=== PATIENT | male | born 1960 | race Caucasian/White ===

== ENCOUNTER 2017-03-26 01:17 | Inpatient (IN) | payer SELFPAY ==
[2017-03-26 01:49] LABS: Oxyhemoglobin 78.9 % (94.0-97.0); Sodium 136 mmol/L (135-148)
[2017-03-26 01:51] LABS: Modified Allen's Test POSITIVE; Spontaneous Rate 23 min; Vent NO
[2017-03-26 01:52] LABS: Mode BREATHING TX
[2017-03-26 01:56] LABS: #Basophils 0.1 thou/uL (0.0-0.2); #Eosinphils 1.2 thou/uL (0.0-0.7); #Lymphocytes 4.4 thou/uL (1.20-3.40); #Monocytes 1.2 thou/uL (0.11-0.59); %Basophils 0.7 % (0.0-1.0); %Eosinophils 10.4 % (0.0-10.0); %Lymphocytes 36.5 % (21.0-51.0); %Monocytes 10.3 % (0.0-10.0); Hematocrit 46.6 % (42.0-52.0); Mean Platelet Volume 7.6 fL (7.4-10.4); Red Blood Cell (RBC) Count 4.61 mill/uL (4.70-6.10); White Blood Cell (WBC) Count 11.9 thou/uL (4.8-10.8)
[2017-03-26 02:03] LABS: PTT 27.9 SEC (22.9-36.1); Prothrombin Time 13.9 SEC (12.0-14.7)
[2017-03-26 02:21] LABS: Troponin I Less than 0.010 ng/mL (< 0.028)
[2017-03-26 02:33] LABS: Lactic Acid - Sepsis 2.5 mmol/L (0.5-2.2)
[2017-03-26 02:39] LABS: ALT (SGPT) 86 U/L (8-55); AST (SGOT) 61 U/L (5-34); Alkaline Phosphatase 100 U/L (40-150); Anion Gap 18 mmol/L (10-20); BUN (Urea Nitrogen) 8 mg/dL (8.4-25.7); Bilirubin, Total 0.6 mg/dL (0.2-1.2); CK (CPK) 45 U/L (30-200); Calc. Creatinine Clearance 0 mL/min (70-130); Calcium 9.9 mg/dL (7.8-10.44); Carbon Dioxide 21 mmol/L (22-29); Chloride 100 mmol/L (98-107); Estimated GFR-MDRD 82; Globulin 3.4 g/dL (2.4-3.5); Lipase 21 U/L (8-78); Protein, Total 7.6 g/dL (6.0-8.3)
[2017-03-26] MEDS ORDERED: Ondansetron ODT 4 MG TAB SL PRN (05:12)
[2017-03-26] MEDS ORDERED: Sodium Chloride 0.9% 1,000 ML IV SCH ×3 (05:12→11:00)
[2017-03-26] MEDS ORDERED: Ondansetron HCl/PF 4 MG/2 ML Vial IVP PRN (05:12)
[2017-03-26 05:32] VITALS: BMI 25.1
[2017-03-26] MEDS ORDERED: Acetaminophen 325 MG TAB PO PRN (07:33)
[2017-03-26] MEDS ORDERED: Ondansetron ODT 4 MG TAB PO PRN (07:33)
--- NOTE | 2017-03-26 08:15 | RAD ---
CHEST ONE VIEW: History: Dyspnea. Comparison: 12-11-16 FINDINGS: Layering pleural effusion versus scarring right lung base is similar. Left lung is relatively clear. Pleural and parenchymal changes at the right thorax. No pneumothorax. IMPRESSION: No significant change. Chronic pleural and parenchymal changes in the right lung. POS: [facility]
[2017-03-26] MEDS ORDERED: Dexamethasone 4 mg/ml Vial SLOW IVP SCH (09:00)
[2017-03-26] MEDS: Metoprolol Tartrate 50 MG TAB PO SCH ×2 (09:20→20:07)
[2017-03-26] MEDS: predniSONE 20 MG TAB PO SCH (09:21)
[2017-03-26] MEDS: Amlodipine 10 MG TAB PO SCH (09:22)
[2017-03-26] MEDS: Sodium Chloride 0.9% 500 ML IV SCH ×2 (09:24→10:42)
[2017-03-26] MEDS ORDERED: Multivitamins, Adult 10 ML, Folic Acid 1 MG, Thiamine HCl 100 MG in Dextrose 5 %-0.45 %... IV SCH ×4 (09:30)
[2017-03-26] MEDS ORDERED: Diazepam 5 MG TAB PO PRN (09:59)
[2017-03-26] MEDS ORDERED: Diazepam 5 MG TAB PO SCH (10:15)
[2017-03-26] MEDS ORDERED: Albuterol Sulfate 2.5 mg/3 ml Neb NEB PRN (10:54)
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
--- NOTE | 2017-03-26 12:15 | CON ---
DATE OF CONSULTATION: 03/26/2017 SERVICE: Pulmonary Medicine REASON FOR CONSULTATION: Respiratory failure. HISTORY OF PRESENT ILLNESS: The patient is a 56-year-old white male with past medical history signif icant for COPD. He uses nebulized medications on an as needed basis. Over the past year, he did not need much more than 5 or [address], he and started having increasing shortness of br eath that abruptly started when he woke up on the day of admission. He was having increasing cough, sputum production, wheezing. He was not having any fevers or chills. He denies any chest pain, palp itations, nausea, vomiting or diarrhea. He was placed on noninvasive ventilation in the Emergency De partment, given some nebulizers medications, steroids, and antibiotics. After a short period of time , he was tucked into the ICU and recovered very nicely. This morning, I am giving him a BiPAP break. We will see if he tolerates this. PAST MEDICAL HISTORY: 1. COPD. 2. Tobacco abuse. 3. Alcohol abuse. 4. Hypertension. PAST SURGICAL HISTORY: Left thumb surgery. FAMILY HISTORY: Noncontributory. SOCIAL HISTORY: He drinks 3-4 beers on a daily basis, but these are the larger 32 ounce beers. He s mokes roughly a pack a day and has a greater than [id number] history of smoking. 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 He denies illicit drugs. He has no exposure to chemicals, asbestos or tuberculosis. ALLERGIES: ASPIRIN, CEFTRIAXONE. MEDICATIONS: List of his inpatient medications were reviewed in the medical record. No specific upd ates were made at this time. REVIEW OF SYSTEMS: General, head, ears, eyes, nose, throat, cardiovascular, respiratory, GI, , mus culoskeletal, neurologic and skin is negative except as mentioned in the HPI. PHYSICAL EXAMINATION: VITAL SIGNS: Afebrile, pulse 107, blood pressure 130/84, respirations 30, saturation 99% on 2 liters nasal cannula. GENERAL: The patient is awake and alert. No apparent distress. HEENT: Normocephalic, atraumatic. Sclerae are white, conjunctivae pink. Oral and nasal mucosa is m oist without lesions. LUNGS: Decent air entry. There is a prolonged expiratory phase. Wheezing is present. Careful ausc ultation did not demonstrate any crackles. HEART: Normal rate, regular. ABDOMEN: Soft, nontender, nondistended. Bowel sounds are positive. MUSCULOSKELETAL: No cyanosis or clubbing. No pitting in the bilateral lower extremities. NEUROLOGIC: Grossly nonfocal. LABORATORY DATA: WBC 11.9, hemoglobin 15.8, platelets 382,000. INR 1.1. PH 7.38, pCO2 41, pO2 50. Lactate is up trending to 5.9. Basic metabolic profile is otherwise unremarkable. Liver function s tudies including AST and ALT are marginally elevated. BNP and troponin are unremarkable. Plasma al cohol was below the assay limit of 10. Syphilis and RPR are currently pending. Influenza A and B we re negative. IMAGING: Chest x-ray demonstrated right-sided small pleural parenchymal abnormality. No acute cardio pulmonary abnormality is otherwise identified. ASSESSMENT: 1. Chronic obstructive pulmonary disease with acute exacerbation. 2. Acute hypoxic respiratory failure. 3. Alcohol abuse. 4. Tobacco abuse. PLAN: I will deescalate his steroid to 40 mg of prednisone p.o. daily. We will continue his IV anti biotics for the time being. We will give him BiPAP breaks through the day and increase as tolerated. I will provide him with beer so that he does not develop any withdrawal type features. I agree wit h his ASE scale. I did give him the option of withdrawing from the alcohol, but he suggested that he will not stop drinking. As such, I do not think that going through this exercise is fruitful. [facility] will continue to follow. Greater than 70 minutes were spent coordinating patient's care, and being directly available to this patient in the unit.
[2017-03-26] MEDS: BEER 1 CAN PO SCH ×2 (14:33→20:08)
[2017-03-26 23:21] LABS: Syphilis Titer Non-Reactive (Negative)
[2017-03-27] MEDS ORDERED: Diazepam 5 MG TAB PO PRN (04:00)
[2017-03-27] MEDS: guaiFENesin 200 MG TAB PO PRN ×3 (04:50→20:54)
[2017-03-27 05:31] LABS: #Lymphocytes 1.2 thou/uL (1.20-3.40); #Monocytes 1.2 thou/uL (0.11-0.59); %Basophils 0.1 % (0.0-1.0); %Eosinophils 0.1 % (0.0-10.0); %Lymphocytes 8.2 % (21.0-51.0); %Monocytes 8.3 % (0.0-10.0); Mean Platelet Volume 8.4 fL (7.4-10.4); White Blood Cell (WBC) Count 14.4 thou/uL (4.8-10.8)
[2017-03-27 05:57] LABS: Anion Gap 15 mmol/L (10-20); BUN (Urea Nitrogen) 10 mg/dL (8.4-25.7); Calc. Creatinine Clearance 128 mL/min (70-130); Carbon Dioxide 19 mmol/L (22-29); Chloride 104 mmol/L (98-107); Estimated GFR-MDRD Greater than 90; Magnesium 2.5 mg/dL (1.6-2.6); Phosphorus 3.9 mg/dL (2.3-4.7)
[2017-03-27] MEDS: Amlodipine 10 MG TAB PO SCH (07:47)
[2017-03-27] MEDS: Metoprolol Tartrate 50 MG TAB PO SCH ×2 (07:47→20:54)
[2017-03-27] MEDS: predniSONE 20 MG TAB PO SCH (07:47)
[2017-03-27] MEDS: Folic Acid 1 MG TAB PO SCH (07:47)
[2017-03-27] MEDS: Multivitamin W/ Minerals 1 TAB PO SCH (07:48)
[2017-03-27] MEDS: BEER 1 CAN PO SCH ×3 (08:08→17:09)
[2017-03-27] MEDS ORDERED: FLU VACC QS2017-18 36 mo. & older 0.5 ML SYRINGE IM ONE (09:00)
[2017-03-27] MEDS ORDERED: Magnesium Oxide 400 MG TAB PO SCH (09:00)
--- NOTE | 2017-03-27 09:15 | PDOC.FM ---
- Subjective Subjective: Patient reports improvement but still has cough and wheezing. Otherwise no complaints. - Objective MAR Reviewed: Yes Vital Signs & Weight: Vital Signs (12 hours) Temp Pulse Resp BP BP Pulse Ox 03/27/17 08:00 98.4 F 90 18 03/27/17 07:47 90 136/78 03/27/17 07:30 98.4 F 90 16 136/78 96 03/27/17 05:53 75 16 97 03/27/17 04:42 97.8 F 77 18 118/71 99 03/27/17 03:41 96 03/27/17 02:00 77 16 98 03/27/17 01:00 97.9 F 83 22 H 114/74 99 03/26/17 23:07 78 18 100 03/26/17 22:15 98.2 F 81 20 98 Weight Weight 86.5 kg Most Recent Monitor Data Heart Rate from ECG 78 NIBP 117/80 NIBP BP-Mean 91 Respiration from ECG 21 SpO2 97 I&O: 03/26/17 03/27/17 03/28/17 06:59 06:59 06:59 Intake Total 5142 Output Total 0 2850 Balance 0 2292 Result Diagrams: 03/27/17 04:01 03/27/17 04:01 <Sonya Guzman - Last Filed: 03/27/17 09:14> - Objective Vital Signs & Weight: Vital Signs (12 hours) Temp Pulse Resp BP BP Pulse Ox 03/27/17 19:07 76 16 95 03/27/17 19:06 76 16 96 03/27/17 11:40 78 16 95 03/27/17 09:48 78 18 94 L 03/27/17 08:00 98.4 F 90 18 03/27/17 07:47 90 136/78 03/27/17 07:30 98.4 F 90 16 136/78 96 Weight Weight 86.5 kg Most Recent Monitor Data Heart Rate from ECG 78 NIBP 117/80 NIBP BP-Mean 91 Respiration from ECG 21 SpO2 97 I&O: 03/26/17 03/27/17 03/28/17 06:59 06:59 06:59 Intake Total 5142 Output Total 0 2850 Balance 0 2292 Result Diagrams: 03/27/17 04:01 03/27/17 04:01 <Virgie Bañuelos - Last Filed: 03/27/17 19:10> Phys Exam - Physical Examination Constitutional: NAD HEENT: moist MMs diffuse course breath sounds and diffuse wheezing in all lung salda[place] Cardiovascular: RRR, no significant murmur Gastrointestinal: soft, non-tender Musculoskeletal: no edema Neurological: non-focal, normal sensation, moves all 4 limbs Psychiatric: normal affect, A&O x 3 <Sonya Guzman - Last Filed: 03/27/17 09:14> Dx/Plan (1) Acute exacerbation of chronic obstructive pulmonary disease (COPD) Code(s): J44.1 - CHRONIC OBSTRUCTIVE PULMONARY DISEASE W (ACUTE) EXACERBATION Status: Acute Plan: Cont levaquin but can likely transition to oral after todays dose. Patient would significantly benefit from maintenance medicines including LABA/ inh glucocorticoids and anticholinergics. He is unfunded however but have ask case mgmt to help with financial assistance program to get inhalers. Likely would benefit from another day of monitoring as patient still oxygen dependent. Will initiate dulera in hopes he can obtain this outpatient as well. (2) Abnormal LFTs Code(s): R79.89 - OTHER SPECIFIED ABNORMAL FINDINGS OF BLOOD CHEMISTRY Status : Chronic Plan: known acute fatty liver. HIV, Hep C and B negative less than 6 months prior. RPR pending. (3) Alcohol abuse Code(s): F10.10 - ALCOHOL ABUSE, UNCOMPLICATED Status: Chronic Plan: 1 beer TID. no signs of withdrawal currently. (4) Hypertension Code(s): I10 - ESSENTIAL (PRIMARY) HYPERTENSION Status: Chronic Plan: cont home meds. (5) Tobacco abuse Code(s): Z72.0 - TOBACCO USE Status: Chronic Plan: Patient reports cessation 3 wks prior. Cont to encourage cessation. <Sonya Guzman - Last Filed: 03/27/17 09:14> Attending Addendum - Attending Addendum I personally evaluated the patient and discussed the management with Dr. Guzman at 955 am. I agree with the History, Examination, Assessment and Plan documented above with any addition or exceptions noted below. COPD exacerbation- on steroids, nebs, O2 as needed, levaquin. COntinue to wean O2 and expect d/c in the next 1-2 days pending improvement <Virgie Bañuelos - Last Filed: 03/27/17 19:10>
[2017-03-27] MEDS ORDERED: Mometasone/Formoterol 120 PUFF INHALER INH SCH (09:30)
--- NOTE | 2017-03-27 17:49 | PRG ---
DATE OF SERVICE: 03/27/2017 SERVICE: Pulmonary Medicine. INTERVAL HISTORY: The patient is doing fine from a respiratory standpoint. He is breathing very com fortably and suggested 60% back to baseline from a respiratory perspective. He is very happy with im provement that he has made. He has been weaned down to half liter nasal cannula, sats are fantastic on that and so we will try him off of oxygen. Outside of this, he has no specific complaints. His c ough is clearing and is bringing up a little bit of white phlegm. PHYSICAL EXAMINATION: VITAL SIGNS: Afebrile, pulse 90, blood pressure 136/78, respirations 18, saturation 95% on 2 liters nasal cannula. GENERAL: Patient is awake, alert, in no apparent distress. LUNGS: Improved air entry. There remains a prolonged expiratory phase with expiratory wheezing. Rh onchi improved and currently clear with cough. There is no prolonged expiratory phase, wheezing, rhonchi or crackles. HEART: Normal rate, regular. ABDOMEN: Soft, nontender, nondistended. Bowel sounds are positive. MUSCULOSKELETAL: No cyanosis or clubbing. No pitting in the bilateral lower extremities. NEUROLOGIC: Grossly nonfocal. LABORATORY DATA: WBC 14.4, hemoglobin 14.5, platelets 298,000. Neutrophil count is up to 83%, likel y secondary to steroids. INR 1.1. Basic metabolic profile, magnesium, and phosphorus all fall withi n normal limits. Lactate is cleared to 1.8. Plasma alcohol is below the assay limit of 10. Syphili s is intermediate and RPR titer was nonreactive. Influenza A and B are both negative. Blood culture s x2 are unremarkable. ASSESSMENT: 1. Acute hypoxic respiratory failure, resolved. 2. Chronic obstructive pulmonary disease with acute exacerbation. 3. Alcohol abuse. 4. Tobacco abuse, ongoing. PLAN: The patient is a fast approaching his usual state of health. We will continue steroids to be discontinued after 5 days. Antibiotics can be discontinued after 5-7 days. I will de-escalate his n ebulized medications to q.6 hours and will continue p.r.n. medicines if needed. If he continues to m dari progress and positive direction, he will be stable for transition home in the morning. Pulmonary will continue to follow while the patient remains in house.
[2017-03-27] MEDS: Mometasone/Formoterol 120 PUFF INHALER INH SCH (19:07)
[2017-03-28 05:52] LABS: #Eosinphils 0.1 thou/uL (0.0-0.7); #Lymphocytes 2.2 thou/uL (1.20-3.40); #Monocytes 0.9 thou/uL (0.11-0.59); #Neutrophils 7.4 thou/uL (1.40-6.50); %Basophils 0.2 % (0.0-1.0); %Eosinophils 0.6 % (0.0-10.0); %Lymphocytes 20.9 % (21.0-51.0); %Monocytes 8.2 % (0.0-10.0); Hematocrit 48.3 % (42.0-52.0); Mean Platelet Volume 8.8 fL (7.4-10.4); Red Blood Cell (RBC) Count 4.74 mill/uL (4.70-6.10); White Blood Cell (WBC) Count 10.6 thou/uL (4.8-10.8)
[2017-03-28 06:34] LABS: Anion Gap 19 mmol/L (10-20); BUN (Urea Nitrogen) 12 mg/dL (8.4-25.7); Calc. Creatinine Clearance 120 mL/min (70-130); Calcium 9.8 mg/dL (7.8-10.44); Carbon Dioxide 17 mmol/L (22-29); Chloride 102 mmol/L (98-107); Estimated GFR-MDRD Greater than 90
[2017-03-28] MEDS: Mometasone/Formoterol 120 PUFF INHALER INH SCH (06:45)
[2017-03-28 08:00] VITALS: BP 133/84; TEMP 97.9
[2017-03-28] MEDS: Multivitamin W/ Minerals 1 TAB PO SCH (08:20)
[2017-03-28] MEDS: Folic Acid 1 MG TAB PO SCH (08:20)
[2017-03-28] MEDS: predniSONE 20 MG TAB PO SCH (08:20)
[2017-03-28] MEDS: Metoprolol Tartrate 50 MG TAB PO SCH (08:21)
[2017-03-28] MEDS: Amlodipine 10 MG TAB PO SCH (08:21)
--- NOTE | 2017-03-28 09:46 | PDOC.FM ---
- Subjective Subjective: Patient doing much better this morning and has remained off O2 yesterday and overnight. - Objective MAR Reviewed: Yes Vital Signs & Weight: Vital Signs (12 hours) Temp Pulse Resp BP BP Pulse Ox 03/28/17 08:21 83 133/84 03/28/17 07:55 97.9 F 83 22 H 133/84 94 L 03/28/17 06:47 75 16 97 03/28/17 06:45 75 16 97 03/28/17 02:48 95 03/28/17 00:32 83 12 Weight Weight 86.5 kg Most Recent Monitor Data Heart Rate from ECG 78 NIBP 117/80 NIBP BP-Mean 91 Respiration from ECG 21 SpO2 97 I&O: 03/27/17 03/28/17 03/29/17 06:59 06:59 06:59 Intake Total 5142 480 Output Total 2850 Balance 2292 480 Result Diagrams: 03/28/17 04:11 03/28/17 04:11 <Sonya Guzman - Last Filed: 03/28/17 09:43> - Objective Vital Signs & Weight: Vital Signs (12 hours) Temp Pulse Resp BP BP Pulse Ox 03/28/17 13:03 83 16 94 L 03/28/17 08:21 83 133/84 03/28/17 08:00 97.9 F 83 22 H 94 L 03/28/17 07:55 97.9 F 83 22 H 133/84 94 L Weight Weight 86.5 kg Most Recent Monitor Data Heart Rate from ECG 78 NIBP 117/80 NIBP BP-Mean 91 Respiration from ECG 21 SpO2 97 I&O: 03/27/17 03/28/17 03/29/17 06:59 06:59 06:59 Intake Total 5142 660 Output Total 2850 Balance 2292 660 Result Diagrams: 03/28/17 04:11 03/28/17 04:11 <Virgie Bañuelos - Last Filed: 03/28/17 19:15> Phys Exam - Physical Examination Constitutional: NAD HEENT: moist MMs diffuse course wheezing, + air movement Cardiovascular: RRR, no significant murmur Gastrointestinal: soft Musculoskeletal: no edema Neurological: non-focal, normal sensation, moves all 4 limbs Psychiatric: normal affect <Sonya Guzman - Last Filed: 03/28/17 09:43> Dx/Plan (1) Acute exacerbation of chronic obstructive pulmonary disease (COPD) Code(s): J44.1 - CHRONIC OBSTRUCTIVE PULMONARY DISEASE W (ACUTE) EXACERBATION Status: Acute Plan: Cont levaquin for total of 10 days, script to be sent. financial assistance program not able to obtain triple therapy inhalers, but will cover a pro air inhaler. Have explained the importance of maintenance meds to patient but reports finances will cont to be an issue. He will follow up with [facility]. Cont prednisone for total 5 day course. (2) Abnormal LFTs Code(s): R79.89 - OTHER SPECIFIED ABNORMAL FINDINGS OF BLOOD CHEMISTRY Status : Chronic Plan: known acute fatty liver. HIV, Hep C and B negative less than 6 months prior. RPR pending. (3) Alcohol abuse Code(s): F10.10 - ALCOHOL ABUSE, UNCOMPLICATED Status: Chronic Plan: cessation counseling. (4) Hypertension Code(s): I10 - ESSENTIAL (PRIMARY) HYPERTENSION Status: Chronic Plan: cont home meds. (5) Tobacco abuse Code(s): Z72.0 - TOBACCO USE Status: Chronic Plan: Patient reports cessation 3 wks prior. Cont to encourage cessation. <Sonya Guzman - Last Filed: 03/28/17 09:43> Attending Addendum - Attending Addendum I personally evaluated the patient and discussed the management with Dr. Guzman at 0900 am I agree with the History, Examination, Assessment and Plan documented above with any addition or exceptions noted below. COPD exacerbation- improved. Off O2 for 24 hours. d/c home on levaquin and steroids and albuterol. <Virgie Bañuelos - Last Filed: 03/28/17 19:15>
[2017-03-28] MEDS: BEER 1 CAN PO SCH ×2 (10:04→12:23)
[2017-03-28] MEDS: guaiFENesin 200 MG TAB PO PRN (13:59)
--- NOTE | 2017-03-31 13:54 | EKG ---
Test Reason : Blood Pressure : / mmHG Vent. Rate : 116 BPM Atrial Rate : 116 BPM P-R Int : 166 ms QRS Dur : 070 ms QT Int : 302 ms P-R-T Axes : 077 076 070 degrees QTc Int : 419 ms Sinus tachycardia Otherwise normal ECG Confirmed by KEILA BILLY, MEENU ([id number]), metropolitan editor HIWOT MURPHY ([id number]) on 03/31/2017 1:52:47 PM Referred By: Confirmed By:MEENU PEDRAZA MD
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
== END 2017-03-28 14:30 | disposition home or self-care (01) | DRG 189 ==
LOC: ERS 01:17 → ERHOLD 03:07 → CCU 04:44 → T4-A 23:01
PROVIDERS: ADMIT Family Medicine; ATTEND Family Medicine
PROC: 5A09357 Assistance with Respiratory Ventilation, Less than 24 Consecutive Hours, Continuous Positive Airway Pressure (ICD-10-PCS; principal; 2017-03-26)
DX: J96.21 Acute and chronic respiratory failure with hypoxia (principal); K76.0 Fatty (change of) liver, not elsewhere classified; E87.1 Hypo-osmolality and hyponatremia; J44.1 Chronic obstructive pulmonary disease with (acute) exacerbation; I10 Essential (primary) hypertension; Z88.6 Allergy status to analgesic agent; Z88.1 Allergy status to other antibiotic agents; Z79.51 Long term (current) use of inhaled steroids; F17.211 Nicotine dependence, cigarettes, in remission; Z66 Do not resuscitate; F10.10 Alcohol abuse, uncomplicated
CPT/HCPCS: 36415; 71010; 80048; 80053; 80307; 82553; 82805; 83605; 83690; 83735; 83880; 84100; 84484; 85025; 85610; 85730; 86593; 86780; 87040; 90471; 90682; 93005; 94640; 94660; 96365; 96366; A4216; G0008; J1100; J1956; J3411; J3475; J7042; J7050; J7506; J7620; Q2036

== ENCOUNTER 2017-04-21 23:46 | Inpatient (IN) | payer SELFPAY ==
[2017-04-22 00:45] LABS: #Basophils 0.1 thou/uL (0.0-0.2); #Eosinphils 0.9 thou/uL (0.0-0.7); #Lymphocytes 1.7 thou/uL (1.20-3.40); #Monocytes 0.6 thou/uL (0.11-0.59); #Neutrophils 4.9 thou/uL (1.40-6.50); %Basophils 0.9 % (0.0-1.0); %Eosinophils 11.5 % (0.0-10.0); %Monocytes 7.6 % (0.0-10.0); %Neutrophils 59.9 % (42.0-75.0); Hemoglobin 15.2 g/dL (14.0-18.0); Mean Corpuscular HGB CONC 34.4 g/dL (32.0-36.0); Mean Corpuscular Hemoglobin 33.9 pg (27.0-31.0); Mean Corpuscular Volume 98.6 fl (80.0-94.0); Mean Platelet Volume 8.1 fL (7.4-10.4); Platelet Count 241 thou/uL (130-400); RBC Distribution Width 11.4 % (11.5-14.5); Red Blood Cell (RBC) Count 4.49 mill/uL (4.70-6.10); White Blood Cell (WBC) Count 8.2 thou/uL (4.8-10.8)
[2017-04-22 00:59] LABS: ALT (SGPT) 47 U/L (8-55); AST (SGOT) 27 U/L (5-34); Albumin 4.1 g/dL (3.5-5.0); Alkaline Phosphatase 111 U/L (40-150); Anion Gap 15 mmol/L (10-20); BUN (Urea Nitrogen) 12 mg/dL (8.4-25.7); Bilirubin, Total 0.5 mg/dL (0.2-1.2); Calc. Creatinine Clearance 0 mL/min (70-130); Calcium 9.8 mg/dL (7.8-10.44); Carbon Dioxide 25 mmol/L (22-29); Chloride 100 mmol/L (98-107); Estimated GFR-MDRD 78; Globulin 3.2 g/dL (2.4-3.5); Glucose 136 mg/dL (70-105); Potassium 3.6 mmol/L (3.5-5.1); Protein, Total 7.3 g/dL (6.0-8.3); Sodium 136 mmol/L (136-145)
[2017-04-22 02:08] LABS: CKMB 1.4 ng/mL (0-6.6); Troponin I 0.019 ng/mL (< 0.028)
[2017-04-22] MEDS ORDERED: Acetaminophen 325 MG TAB PO PRN (03:50)
[2017-04-22] MEDS ORDERED: Ondansetron HCl/PF 4 MG/2 ML Vial IVP PRN (03:50)
[2017-04-22] MEDS ORDERED: Ondansetron ODT 4 MG TAB SL PRN (03:50)
[2017-04-22] MEDS ORDERED: Albuterol Sulfate 2.5 mg/3 ml Neb NEB PRN (03:51)
[2017-04-22 03:59] VITALS: BMI 25.0
[2017-04-22] MEDS ORDERED: Chloraseptic Spray 180 ml Bottle PO PRN (08:58)
[2017-04-22] MEDS ORDERED: Benzonatate 100 MG CAP PO PRN (08:58)
[2017-04-22] MEDS ORDERED: Calcium Carbonate 500 MG ChewTAB PO PRN (08:58)
[2017-04-22] MEDS ORDERED: chlordiazePOXIDE HCl 25 MG CAP PO PRN (08:58)
[2017-04-22] MEDS ORDERED: hydrALAZINE 20 MG/ML VIAL SLOW IVP PRN (08:58)
--- NOTE | 2017-04-22 08:59 | RAD ---
CHEST 1 VIEW: HISTORY: Dyspnea. COMPARISON: Chest 1 view 03/26/17. FINDINGS: New from the prior examination is left basilar airspace opacity. Chronic pleural and parenchymal jesus nges and pleural thickening in the right lung base. No pneumothorax. Cardiac silhouette and mediast inal contour is similar. IMPRESSION: 1. New airspace opacity in the left lower lobe may reflect atelectasis or infection. 2. Chronic pleural and parenchymal changes right lung base. POS: [facility]
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
[2017-04-22] MEDS: Docusate 100 MG CAP PO SCH ×2 (09:47→20:41)
[2017-04-22] MEDS: Folic Acid 1 MG TAB PO SCH (09:47)
[2017-04-22] MEDS: Nicotine 14 MG PATCH TD SCH (09:47)
[2017-04-22] MEDS: Sodium Chloride 0.9% 1,000 ML IV SCH (09:47)
[2017-04-22 14:32] LABS: Bilirubin Negative (Negative); Blood, Urine Negative (Negative); Clarity CLEAR (Clear); Glucose, Urine (Dipstick) 100 mg/dL (Negative); Leukocyte Negative (Negative); Nitrite Negative (Negative); Protein, Urine (Dipstick) Negative (Neg-Trace); Specific Gravity, Urine 1.008 (1.002-1.036); Urobilinogen 0.2 mg/dL (0.2-1.0); pH, Urine 7.5 (5.0-9.0)
[2017-04-22 14:34] LABS: Bacteria/HPF None Seen HPF (None Seen); Hyaline Casts/LPF 0-3 HYALINE CAST LPF (0-3 Hyaline); RBC/HPF 0-3 HPF (0-3); Squamous Epithelial None Seen HPF (0-3); WBC/HPF None Seen HPF (0-3)
[2017-04-23] MEDS: Sodium Chloride 0.9% 1,000 ML IV SCH (02:30)
[2017-04-23 05:41] LABS: #Lymphocytes 0.6 thou/uL (1.20-3.40); #Monocytes 0.2 thou/uL (0.11-0.59); #Neutrophils 8.6 thou/uL (1.40-6.50); %Basophils 0.1 % (0.0-1.0); %Eosinophils 0.1 % (0.0-10.0); %Lymphocytes 6.3 % (21.0-51.0); %Monocytes 2.1 % (0.0-10.0); %Neutrophils 91.4 % (42.0-75.0); Hemoglobin 14.5 g/dL (14.0-18.0); Mean Corpuscular HGB CONC 34.3 g/dL (32.0-36.0); Mean Corpuscular Hemoglobin 34.4 pg (27.0-31.0); Mean Platelet Volume 8.7 fL (7.4-10.4); Platelet Count 233 thou/uL (130-400); RBC Distribution Width 11.4 % (11.5-14.5); Red Blood Cell (RBC) Count 4.23 mill/uL (4.70-6.10); White Blood Cell (WBC) Count 9.4 thou/uL (4.8-10.8)
[2017-04-23 06:28] LABS: Albumin 3.9 g/dL (3.5-5.0); Anion Gap 15 mmol/L (10-20); BUN (Urea Nitrogen) 10 mg/dL (8.4-25.7); BUN/Creatinine Ratio 10.99; Calc. Creatinine Clearance 112 mL/min (70-130); Calcium 9.1 mg/dL (7.8-10.44); Carbon Dioxide 25 mmol/L (22-29); Chloride 100 mmol/L (98-107); Estimated GFR-MDRD 86; Glucose 144 mg/dL (70-105); Phosphorus 3.9 mg/dL (2.3-4.7); Potassium 3.9 mmol/L (3.5-5.1); Sodium 136 mmol/L (136-145)
[2017-04-23] MEDS: Folic Acid 1 MG TAB PO SCH (08:20)
[2017-04-23] MEDS: Docusate 100 MG CAP PO SCH ×2 (08:21→21:12)
[2017-04-23] MEDS: Nicotine 14 MG PATCH TD SCH (08:21)
--- NOTE | 2017-04-23 13:52 | PDOC.PN ---
- Subjective Encounter Start Date: 04/23/17 Encounter Start Time: 12:30 -: old records requested/rev Pt seen and exmained, chart reviewe din its entirety. This is my first visit with this patient. Pt states still with LUNDBERG, O2 ok at rest. no f/c, no n/V/D/C. Sweats x 1 last night. non hemoptysis, white phlegm production No CP, no dizziness. Pt notes reviewed - Objective Resuscitation Status: full MAR Reviewed: Yes Vital Signs & Weight: Vital Signs (12 hours) Temp Pulse Resp BP Pulse Ox 04/23/17 11:52 97.5 F L 82 16 152/93 H 96 04/23/17 09:58 82 18 97 04/23/17 08:00 98.7 F 82 18 04/23/17 07:53 98.7 F 80 16 157/93 H 97 Weight Weight 190 lb 1 oz I&O: 04/22/17 04/23/17 04/24/17 06:59 06:59 06:59 Intake Total 1420 480 Balance 1420 480 Result Diagrams: 04/23/17 04:48 04/23/17 04:48 Radiology Reviewed by me: Yes EKG Reviewed by me: Yes Phys Exam - Physical Examination Constitutional: NAD HEENT: PERRLA, moist MMs, sclera anicteric, oral pharynx no lesions Neck: no nodes, no JVD, supple, full ROM Respiratory: no rhonchi prolonged expiration, end-exp wheezes, left posterior base rales Cardiovascular: RRR, no significant murmur, no rub Gastrointestinal: soft, non-tender, no distention, positive bowel sounds Musculoskeletal: no edema, pulses present Neurological: non-focal, normal sensation, moves all 4 limbs Lymphatic: no nodes Psychiatric: normal affect, A&O x 3 Skin: no rash, normal turgor, cap refill <2 seconds Dx/Plan (1) Acute exacerbation of chronic obstructive pulmonary disease (COPD) Code(s): J44.1 - CHRONIC OBSTRUCTIVE PULMONARY DISEASE W (ACUTE) EXACERBATION Status: Acute Comment: improved, 98% RA. wena off. conitnue steroids, nebs. to po tomorrow. continue abx (2) Abnormal LFTs Code(s): R79.89 - OTHER SPECIFIED ABNORMAL FINDINGS OF BLOOD CHEMISTRY Status : Chronic (3) Alcohol abuse Code(s): F10.10 - ALCOHOL ABUSE, UNCOMPLICATED Status: Chronic Comment: librium PRN, ASE scoring (4) CKD (chronic kidney disease) stage 2, GFR 60-89 ml/min Code(s): N18.2 - CHRONIC KIDNEY DISEASE, STAGE 2 (MILD) Status: Chronic (5) Hypertension Code(s): I10 - ESSENTIAL (PRIMARY) HYPERTENSION Status: Chronic Qualifiers: Hypertension type: essential hypertension Qualified Code(s): I10 - Essential (primary) hypertension (6) Tobacco abuse Code(s): Z72.0 - TOBACCO USE Status: Chronic - Plan cont current plan of care, continue antibiotics, PT/OT, 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
[2017-04-24] MEDS: Folic Acid 1 MG TAB PO SCH (08:23)
[2017-04-24] MEDS: Docusate 100 MG CAP PO SCH ×2 (08:23→20:12)
[2017-04-24] MEDS: Nicotine 14 MG PATCH TD SCH (08:24)
--- NOTE | 2017-04-24 12:18 | PDOC.PN ---
- Subjective Encounter Start Date: 04/24/17 Encounter Start Time: 09:30 Pt feeling better, less LUNDBERG, O2 on RA normal at rest. Will ask nursing toambulate. No F/C, no N/v/D/C, no CP, some cough and sputum production pt does have home nebulizer. 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, will plan to refer as an outpatient - Objective MAR Reviewed: Yes Vital Signs & Weight: Vital Signs (12 hours) Temp Pulse Resp BP Pulse Ox 04/24/17 11:00 97.7 F 81 16 138/83 95 04/24/17 08:00 97.5 F L 86 16 129/80 94 L 04/24/17 05:29 97.3 F L 76 20 135/85 99 04/24/17 04:42 94 L 04/24/17 04:31 79 18 94 L 04/24/17 00:45 98.1 F 79 20 139/92 H 97 Weight Weight 190 lb 1 oz I&O: 04/23/17 04/24/17 04/25/17 06:59 06:59 06:59 Intake Total 1420 3430 500 Output Total 5550 Balance 1420 -2120 500 Result Diagrams: 04/23/17 04:48 04/23/17 04:48 Radiology Reviewed by me: Yes EKG Reviewed by me: Yes Phys Exam - Physical Examination Constitutional: NAD HEENT: PERRLA, moist MMs, sclera anicteric, oral pharynx no lesions Neck: no nodes, no JVD, supple, full ROM Respiratory: no wheezing, no rales, no rhonchi, clear to auscultation bilateral prolonged expiration Cardiovascular: RRR, no significant murmur, no rub Gastrointestinal: soft, non-tender, no distention, positive bowel sounds Musculoskeletal: pulses present, edema present Neurological: non-focal, normal sensation, moves all 4 limbs Lymphatic: no nodes Psychiatric: normal affect, A&O x 3 Skin: no rash, normal turgor, cap refill <2 seconds Dx/Plan (1) Acute exacerbation of chronic obstructive pulmonary disease (COPD) Code(s): J44.1 - CHRONIC OBSTRUCTIVE PULMONARY DISEASE W (ACUTE) EXACERBATION Status: Acute Comment: improved, 98% RA. weaned off, but will check ambulatory sats as he still has significant LUNDBERG. conitnue steroids, nebs. to po prednisone today. continue abx (2) Abnormal LFTs Code(s): R79.89 - OTHER SPECIFIED ABNORMAL FINDINGS OF BLOOD CHEMISTRY Status : Chronic (3) Alcohol abuse Code(s): F10.10 - ALCOHOL ABUSE, UNCOMPLICATED Status: Chronic Comment: librium PRN, ASE scoring (4) CKD (chronic kidney disease) stage 2, GFR 60-89 ml/min Code(s): N18.2 - CHRONIC KIDNEY DISEASE, STAGE 2 (MILD) Status: Chronic (5) Hypertension Code(s): I10 - ESSENTIAL (PRIMARY) HYPERTENSION Status: Chronic Qualifiers: Hypertension type: essential hypertension Qualified Code(s): I10 - Essential (primary) hypertension (6) Tobacco abuse Code(s): Z72.0 - TOBACCO USE Status: Chronic - Plan cont current plan of care, continue antibiotics, 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
[2017-04-24] MEDS ORDERED: predniSONE 20 MG TAB PO SCH (12:30)
[2017-04-24] MEDS ORDERED: guaiFENesin ER 600 MG TAB PO SCH (12:30)
[2017-04-24] MEDS: guaiFENesin ER 600 MG TAB PO SCH (20:11)
[2017-04-25 07:31] VITALS: TEMP 97.8
[2017-04-25] MEDS ORDERED: predniSONE 20 MG TAB PO SCH (08:00)
[2017-04-25] MEDS: Folic Acid 1 MG TAB PO SCH (08:11)
[2017-04-25] MEDS: Docusate 100 MG CAP PO SCH (08:11)
[2017-04-25] MEDS: Nicotine 14 MG PATCH TD SCH (08:11)
[2017-04-25] MEDS: guaiFENesin ER 600 MG TAB PO SCH (08:12)
[2017-04-25 11:42] VITALS: BP 180/99
[2017-04-25] MEDS ORDERED: Metoprolol Tartrate 25 MG TAB PO SCH ×2 (11:45→21:00)
[2017-04-25] MEDS ORDERED: Amlodipine 10 MG TAB PO SCH (11:45)
--- NOTE | 2017-04-25 17:10 | DIS ---
DATE OF ADMISSION: 04/22/2017 DATE OF DISCHARGE: 04/25/2017 DISCHARGE DIAGNOSES: 1. Acute exacerbation chronic obstructive pulmonary disease. 2. Ongoing tobacco abuse. 3. Acute hypoxic respiratory failure - resolved on discharge. 4. Community-acquired pneumonia, left lower lobe. 5. Hypertension, essential. 6. Acute exacerbation of chronic obstructive pulmonary disease, I believe previously undiagnosed. PRIMARY CARE PHYSICIAN: [facility]. CONSULTATIONS: None. PROCEDURES: None. HISTORY AND PHYSICAL: Mr. Milian is a 56-year-old male who presented to the Emergency Department o n 04/22/2017 for evaluation of shortness of breath, been having symptoms for sometime. He was actual ly admitted to the hospital on 03/28 for acute exacerbation of COPD and discharged. He improved with some nebs and Solu-Medrol. After discharge, he seemed to get worse. He had a flu-like illness and presented back to the Emergen cy Department for evaluation. There, he was found to have low oxygen levels. White count was normal at 8.2. Chest x-ray showed left lower lobe opacity in the lower and perihilar lung saldaña. He was subsequently admitted. HOSPITAL COURSE: The patient was seen and examined by Dr. Doyle. He was started on Solu-Medr ol, DuoNebs, and IV antibiotics. He was placed as an inpatient. Due to the history of alcohol abuse, the patient used p.r.n. Librium for ASE scores that were abnorma l. Overnight on 04/22 and 04/23, the patient improved. I took the case over, he was still having some p rolonged expiration, but the wheezing was much improved. He was satting well on room air as oxygen w as left off and he was monitored. On 04/24/2017, he remained off oxygen with good oxygen saturations. Ambulatory oxygen sats did not d rop below 95%. He was continued on steroids, neb treatments, and antibiotics. On 04/25/2017, he was doing much better. He is moving good air. No prolonged expiratory phase. No wheezing. Labs were normal. He was stable for discharge with outpatient followup. The patient was seen and examined on the day of discharge. Discharge plan disposition was discussed with the patient [id number] at the bedside. DISCHARGE MEDICATIONS: 1. Metoprolol tartrate 25 mg p.o. b.i.d. 2. Albuterol sulfate HFA 2 puffs q.4 hours p.r.n., on hold while he is using nebulizer treatments. 3. Albuterol nebs 2.5 mg, nebulized q.2 hours p.r.n. 4. DuoNebs 3 mL q.6 hours scheduled. 5. Prednisone 40 mg p.o. q.a.m. to decrease by 10 mg every third day until weaned off. 6. Guaifenesin ER 1200 mg p.o. b.i.d. 7. Chloraseptic spray as needed. 8. Nicoderm patch 14 mg, change every 24 hours. 9. Levaquin 500 mg p.o. daily for 6 more days. 10. Amlodipine 10 mg p.o. q.a.m. FOLLOWUP APPOINTMENTS: 1. [facility] within a week. 2. I have made a referral to Dr. Asad Abel who is transitions manager for Pulmonary on the day of discharge f or outpatient review of his COPD. DISCHARGE DIET: Heart healthy recommended. DISCHARGE ACTIVITY: As tolerated per cardiopulmonary limits. DISCHARGE CONDITION: Stable. DISPOSITION: Discharged home via private vehicle.
[2017-04-26] MEDS ORDERED: Amlodipine 10 MG TAB PO SCH (09:00)
== END 2017-04-25 11:44 | disposition home or self-care (01) | DRG 189 ==
LOC: ERS 23:46 → T4-A 04-22 03:41
PROVIDERS: ADMIT Family Medicine; ATTEND Family Medicine
DX: J96.01 Acute respiratory failure with hypoxia (principal); J18.9 Pneumonia, unspecified organism; J44.1 Chronic obstructive pulmonary disease with (acute) exacerbation; F17.210 Nicotine dependence, cigarettes, uncomplicated; I12.9 Hypertensive chronic kidney disease with stage 1 through stage 4 chronic kidney disease, or unspecified chronic kidney disease; N18.2 Chronic kidney disease, stage 2 (mild); F10.10 Alcohol abuse, uncomplicated; Z88.6 Allergy status to analgesic agent; Z88.1 Allergy status to other antibiotic agents; Z79.899 Other long term (current) drug therapy
CPT/HCPCS: 36415; 71045; 80053; 80069; 81001; 82553; 84425; 84484; 85025; 87070; 87205; 93005; 94640; 94760; 96365; 99406; J1956; J2920; J7506; J7620

== ENCOUNTER 2017-05-05 23:05 | Observation (INO) | payer SELFPAY ==
--- NOTE | 2017-05-05 23:39 | RAD ---
PORTABLE CHEST: History: Shortness of breath. Comparison: 04-22-17 FINDINGS: Heart size is within normal limits. There is chronic pleural and parenchymal changes in the right kandace g base. There is a slight difference in the right infrahilar region. There is a questionable air flui d level, not definitely visualized on the prior exam but a similar density is seen on a 03-26-17 stud y and is probably just related to slight differences in positioning. No definite acute process seen. IMPRESSION: Chronic pleural and parenchymal changes in the right lung base. POS: [facility]
[2017-05-05] MEDS ORDERED: methylPREDNISolone Sod Succ/PF 125 MG/2 ML VIAL ONE (23:49)
[2017-05-05] MEDS ORDERED: Water For Inject, Bacteriostat 30 ML ONE (23:50)
[2017-05-06 00:21] LABS: #Basophils 0.1 thou/uL (0.0-0.2); #Eosinphils 0.1 thou/uL (0.0-0.7); #Monocytes 0.8 thou/uL (0.11-0.59); #Neutrophils 15.2 thou/uL (1.40-6.50); %Basophils 0.4 % (0.0-1.0); %Eosinophils 0.3 % (0.0-10.0); %Monocytes 4.6 % (0.0-10.0); %Neutrophils 83.6 % (42.0-75.0); Hemoglobin 15.8 g/dL (14.0-18.0); Mean Corpuscular HGB CONC 34.6 g/dL (32.0-36.0); Mean Corpuscular Hemoglobin 33.9 pg (27.0-31.0); Mean Corpuscular Volume 98.1 fl (80.0-94.0); Mean Platelet Volume 7.7 fL (7.4-10.4); Platelet Count 266 thou/uL (130-400); RBC Distribution Width 11.9 % (11.5-14.5); Red Blood Cell (RBC) Count 4.66 mill/uL (4.70-6.10); White Blood Cell (WBC) Count 18.1 thou/uL (4.8-10.8)
[2017-05-06 00:43] LABS: ALT (SGPT) 36 U/L (8-55); AST (SGOT) 16 U/L (5-34); Albumin 4.2 g/dL (3.5-5.0); Alkaline Phosphatase 76 U/L (40-150); Anion Gap 16 mmol/L (10-20); BUN (Urea Nitrogen) 7 mg/dL (8.4-25.7); Bilirubin, Total 1.4 mg/dL (0.2-1.2); Calc. Creatinine Clearance 0 mL/min (70-130); Calcium 10.4 mg/dL (7.8-10.44); Carbon Dioxide 23 mmol/L (22-29); Chloride 101 mmol/L (98-107); Estimated GFR-MDRD Greater than 90; Globulin 3.2 g/dL (2.4-3.5); Glucose 108 mg/dL (70-105); Lipase 13 U/L (8-78); Magnesium 1.9 mg/dL (1.6-2.6); Potassium 3.6 mmol/L (3.5-5.1); Protein, Total 7.4 g/dL (6.0-8.3); Sodium 136 mmol/L (136-145)
[2017-05-06 00:47] LABS: Troponin I 0.012 ng/mL (< 0.028)
[2017-05-06] MEDS ORDERED: metroNIDAZOLE 500 MG in Premix Bag 1 BAG IVPB SCH (02:15)
[2017-05-06 02:26] LABS: Bilirubin Negative (Negative); Blood, Urine Negative (Negative); Clarity CLEAR (Clear); Glucose, Urine (Dipstick) Negative (Negative); Leukocyte Negative (Negative); Nitrite Negative (Negative); Protein, Urine (Dipstick) Trace mg/dL (Neg-Trace); Specific Gravity, Urine 1.015 (1.002-1.036); Urobilinogen 0.2 mg/dL (0.2-1.0); pH, Urine 8.5 (5.0-9.0)
[2017-05-06] MEDS ORDERED: Sodium Chloride 0.45% 1,000 ML IV SCH (03:42)
[2017-05-06] MEDS ORDERED: Albuterol Sulfate 2.5 mg/3 ml Neb NEB PRN (03:58)
[2017-05-06 04:05] VITALS: BMI 24.8
[2017-05-06 04:56] LABS: Lactic Acid 3.3 mmol/L (0.5-2.2)
[2017-05-06] MEDS ORDERED: Chloraseptic Spray 180 ml Bottle PO PRN ×2 (07:43→07:44)
[2017-05-06] MEDS ORDERED: PROVENTIL INHALER 6.7 G (200 INHALATIONS) INH PRN (07:43)
[2017-05-06] MEDS ORDERED: Ondansetron ODT 4 MG TAB PO PRN (07:44)
[2017-05-06] MEDS ORDERED: Eucerin (Mineral Oil/Petrolatum,White) 30 gm Jar TOP PRN (07:44)
[2017-05-06] MEDS ORDERED: Artificial Tears 18 DROP/0.9 ML EA EYE PRN (07:44)
[2017-05-06] MEDS ORDERED: Sodium Chloride 0.65% Nasal 44 ML BOT EA NARE PRN (07:44)
[2017-05-06] MEDS ORDERED: Acetaminophen 325 MG TAB PO PRN (07:44)
[2017-05-06] MEDS ORDERED: Diabetic Tussin 200 MG/10 ML UDCUP PO PRN (07:44)
[2017-05-06] MEDS ORDERED: HYDROcodone/Acetaminophen 5/325 mg Tablet PO PRN (07:44)
[2017-05-06] MEDS ORDERED: Senokot 8.6 MG TAB PO PRN (07:44)
[2017-05-06] MEDS ORDERED: Milk Of Magnesia 30 ML UDCUP PO PRN (07:44)
[2017-05-06] MEDS ORDERED: Loperamide HCl 2 MG CAP PO PRN (07:44)
[2017-05-06] MEDS ORDERED: Ondansetron HCl/PF 4 MG/2 ML Vial IVP PRN (07:44)
[2017-05-06] MEDS ORDERED: Temazepam 15 MG CAP PO PRN (07:44)
[2017-05-06] MEDS ORDERED: Mag-Al 1200 mg/1200 mg/30 ML UDCUP PO PRN (07:44)
[2017-05-06] MEDS ORDERED: Loratadine 10 MG TAB PO PRN (07:44)
[2017-05-06] MEDS ORDERED: hydrALAZINE 20 MG/ML VIAL SLOW IVP PRN (07:44)
--- NOTE | 2017-05-06 08:34 | CT ---
PRELIMINARY REPORT/[facility]/EMERGENCY AFTER HOURS PROCEDURE: EXAM: CT Angiography Chest With Intravenous Contrast EXAM DATE/TIME: Exam ordered 05/06/2017 1:42 AM CLINICAL HISTORY: 56 years old, male; Signs and symptoms; Shortness of breath; Patient HX: Er26; M56 presents to ed C/O difficulty breathing. Pt was recently admitted to hospital last week for similar SOB issues and was released last friday. Pt describes the pain as chest tightness. Pt reports that he has been on bipap previously and that this current SOB episode is not as severe as that time. Pt denies nausea, vomitin g or any abdominal pain. Pt reports being on steroid medication for 11 days. TECHNIQUE: Axial computed tomographic angiography images of the chest with intravenous contrast using pulmonary embolism protocol. Coronal reformatted images were created and reviewed. COMPARISON: No relevant prior studies available. FINDINGS: Pulmonary arteries: Unremarkable. No pulmonary embolism. Aorta: No acute findings. No thoracic aortic aneurysm. Lungs: Rounded atelectasis in the right lower lobe. Multifocal subsegmental atelectasis/scarring in t he periphery of the right lung. No mass. Pleural space: Unremarkable. No significant effusion. No pneumothorax. Heart: Unremarkable. No cardiomegaly. No significant pericardial effusion. No evidence of RV dysfunct ion. Bones/joints: Multiple healing bilateral rib fractures. No dislocation. Soft tissues: Unremarkable. Lymph nodes: Unremarkable. No enlarged lymph nodes. IMPRESSION: No acute findings. Thank you for allowing us to participate in the care of your patient. Dictated and Authenticated by: Stew Guerra MD 05/06/2017 2:07 AM Central Time ([place] & [place]) FINAL REPORT CT PULMONARY ANGIOGRAM WITH IV CONTRAST AND 3D POSTPROCESSING: I agree with the preliminary report given by Dr. Stew Guerra of [employer]. Opacification of pulmonary arterial vascular structures is suboptimal. No definite pulmonary embolis m is seen. The possibility of peripheral thromboembolus cannot be excluded on the exam. Thoracic ao rta is better opacified without aneurysm or dissection. If there is high clinical suspicion for pulmonary embolism, further evaluation with VQ scan should be performed. CODE T POS: [facility]
[2017-05-06] MEDS: Amlodipine 10 MG TAB PO SCH (09:57)
[2017-05-06] MEDS: Famotidine 20 MG TAB PO SCH ×2 (09:58→20:53)
[2017-05-06] MEDS: guaiFENesin ER 600 MG TAB PO SCH ×2 (09:58→20:53)
[2017-05-06] MEDS: Doxycycline 100 MG CAP PO SCH ×2 (11:18→20:53)
[2017-05-06] MEDS ORDERED: ISOVUE-370 76%-LOCM 1 ML ONE (12:27)
--- NOTE | 2017-05-06 13:20 | HP ---
PRIMARY CARE PHYSICIAN: [facility]. REASON FOR ADMISSION: COPD exacerbation. HISTORY OF PRESENT ILLNESS: A 56-year-old male who has history of tobacco and alcohol abuse history as well as COPD and he is very noncompliant because he cannot afford medication and he is not filling prescriptions most of the time. He was recently admitted in our hospital on 04/22/2017 and he was d ischarged on 04/25/2017. He came back to the emergency room because he is feeling that his COPD has not improved. He still has increasing shortness of breath. When he came to ER, he was saturating 99 % on room air. He was afebrile. He was only tachypneic and he was complaining chest tightness, shor tness of breath, and cough in the emergency room. He was also having some diarrhea for the last coup le of days. In the emergency room, he was evaluated and he appeared in COPD flareup and that is why he was overnight admitted to medical floor. When I saw this patient, he was comfortable, but he was having diarrhea. He denies any fever or chil ls. He denies any hemoptysis. He denies any pleuritic chest pain. He denies any abdominal pain, na usea or vomiting. He denies any hematemesis or melena. In the emergency room, patient had chest x-ray which was unremarkable. CT angio was also done which was negative for PE. He has leukocytosis and lactic acidosis. We are keeping this patient in the [facility] for further treatment. ALLERGIES: ASPIRIN and ROCEPHIN. CURRENT HOME MEDICATIONS: Albuterol sulfate inhaler 2 puffs q.4 hourly p.r.n., Ventolin nebulization q.4 hourly p.r.n., amlodipine 10 mg p.o. daily, Mucinex 1200 mg p.o. twice daily, DuoNeb q.6 hourly p.r.n., metoprolol 25 mg p.o. daily. He was given tapering doses of prednisone. REVIEW OF SYSTEMS: The following complete review of systems was negative, unless otherwise mentioned in the HPI or below: Constitutional: Weight loss or gain, ability to conduct usual activities. Skin: Rash, itching. Eyes: Double vision, pain. ENT/Mouth: Nose bleeding, neck stiffness, pain, tenderness. Cardiovascular: Palpitations, dyspnea on exertion, orthopnea. Respiratory: Shortness of breath, wheezing, cough, hemoptysis, fever or night sweats. Gastrointestinal: Poor appetite, abdominal pain, heartburn, nausea, vomiting, constipation, or diarr hea. Genitourinary: Urgency, frequency, dysuria, nocturia. Musculoskeletal: Pain, swelling. Neurologic/Psychiatric: Anxiety, depression. Allergy/Immunologic: Skin rash, bleeding tendency. Please see my HPI for pertinent positive and negative. All other review of systems reviewed and nega tive except as mentioned in the HPI. 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 PAST SURGICAL HISTORY: Left arm surgery. PAST PSYCHIATRIC HISTORY: Reviewed and negative. SOCIAL HISTORY: Patient is smoking about 1 pack per day. He also drinks alcohol almost every day [facility]. He is smoking and alcohol use is variable depending upon his money. He denies any other illici t drug abuse. FAMILY HISTORY: Hypertension positive among several family members, but no strong family history of premature coronary artery disease, stroke or cancer. EMERGENCY ROOM COURSE: Patient was given Flagyl 500 mg, Levaquin 750 mg, IV fluid 1 liter, DuoNeb an d Solu-Medrol 125 mg. PHYSICAL EXAMINATION: VITAL SIGNS: On arrival, blood pressure 120/83, pulse 105, respiratory rate 23, temperature 98.5, sa turation 99% on room air, weight 86.6 kilograms. GENERAL: Patient is currently alert, awake, in no obvious acute distress. HEAD: Normocephalic, atraumatic. EYES: Pupils round, reactive to light. Extraocular muscle intact. ENT: Oropharynx within normal limits. Moist mucous membranes. No oral lesions. No pharyngeal eryt zully, no exudates. NECK: Supple, no JVD, no thyromegaly, no carotid bruits. LUNGS: Very few end expiratory wheezing heard, but no rales. No accessory muscles of respiration in use. CARDIAC: S1 and S2 regular. No murmur, no gallop, no rub. ABDOMEN: Soft, bowel sounds present, nontender, nondistended. No organomegaly, no mass, no suprapub ic tenderness. BACK: Examination unremarkable, no CVA tenderness. EXTREMITIES: Upper extremity passive movements of all joints are normal. Lower extremities: No griselda ma. Good peripheral pulsation. No calf tenderness. SKIN: No skin rash. HEMATOLOGICAL SYSTEM: No lymphadenopathy. PSYCHIATRIC: Normal affect. NEUROLOGIC: Patient is alert and oriented x3. Cranial nerves II-XII intact. No focal neurological deficit noted. IMAGING DATA AND LABORATORY DATA: 1. EKG, sinus tachycardia. 2. Chest x-ray based on my review, no acute cardiopulmonary process. 3. CT angio based on my review, no evidence of pulmonary embolism. 4. CBC: WBC 18.1, hemoglobin 15.8, platelet 266. 5. BMP: Sodium 136, potassium 3.6, chloride 101, carbon dioxide 23, anion gap 16, BUN 7, creatinine 0.87, glucose 108, calcium 10.4, lactic acid 3.0, magnesium 1.9. 6. LFT: AST 16, ALT 36, alkaline phosphatase 76, albumin 4.2, lipase 13. CK-MB 1.0, troponin I 0.0 12. Urinalysis normal. Influenza A and B negative. ASSESSMENT AND PLAN/IMPRESSION: 1. Chronic obstructive pulmonary disease exacerbation. This patient is almost on his resolving phas e of chronic obstructive pulmonary disease exacerbation. Currently, he is on room air. He is able t o talk in full sentences. He does not have any accessory muscles of respiration. He is not in acute respiratory distress. He needs observation. We will continue DuoNeb every 4 hourly, Dulera two puf fs inhalation b.i.d., Solu-Medrol 40 mg IV q.6 hourly, empiric antibiotic therapy, doxycycline 100 mg p.o. b.i.d. and symptomatic treatment for cough. 2. Leukocytosis, most likely related with steroid, but given patient has diarrhea, I will check C. d iff infection as well. His influenza is negative and his chest x-ray is also unremarkable. 3. Lactic acidosis, likely related with his alcohol use, but underlying infection cannot be entirely excluded. We will continue with IV fluid and we will repeat lactic acid level tomorrow. 4. Alcohol abuse. We will continue folic acid, vitamin B12 and thiamine therapy while in hospital. 5. Tobacco abuse disorder. Smoking cessation counseling given. Healthy lifestyle measures discusse d with the patient. 6. Hypertension. We will continue amlodipine 10 mg p.o. daily. 7. Diarrhea. We will rule out Clostridium difficile infection, probably related with his antibiotic s. 8. Deep venous thrombosis prophylaxis not needed because we are expecting discharge in 24 hours. 9. Gastrointestinal prophylaxis, Pepcid 20 mg p.o. daily. CODE STATUS: The patient is FULL CODE. Patient does not have any surrogate decision maker. Disposition plan based on clinical course likely within 24 hours. Plan of care discussed with the tanmay ellison in detail.
[2017-05-06] MEDS: Sodium Chloride 0.9% 1,000 ML IV SCH (14:30)
[2017-05-06] MEDS: Mometasone/Formoterol 120 PUFF INHALER INH SCH (19:50)
[2017-05-07] MEDS: Sodium Chloride 0.9% 1,000 ML IV SCH (03:48)
[2017-05-07 06:08] LABS: #Lymphocytes 0.3 thou/uL (1.20-3.40); #Monocytes 0.4 thou/uL (0.11-0.59); #Neutrophils 13.4 thou/uL (1.40-6.50); %Eosinophils 0.1 % (0.0-10.0); %Lymphocytes 2.1 % (21.0-51.0); %Monocytes 3.1 % (0.0-10.0); %Neutrophils 94.7 % (42.0-75.0); Hemoglobin 13.3 g/dL (14.0-18.0); Mean Corpuscular HGB CONC 33.4 g/dL (32.0-36.0); Mean Corpuscular Hemoglobin 33.5 pg (27.0-31.0); Mean Platelet Volume 8.2 fL (7.4-10.4); Platelet Count 237 thou/uL (130-400); RBC Distribution Width 11.9 % (11.5-14.5); Red Blood Cell (RBC) Count 3.97 mill/uL (4.70-6.10); White Blood Cell (WBC) Count 14.2 thou/uL (4.8-10.8)
[2017-05-07 06:14] LABS: Lactic Acid 3.7 mmol/L (0.5-2.2)
[2017-05-07 06:15] LABS: Anion Gap 13 mmol/L (10-20); BUN (Urea Nitrogen) 7 mg/dL (8.4-25.7); Calc. Creatinine Clearance 131 mL/min (70-130); Calcium 9.1 mg/dL (7.8-10.44); Carbon Dioxide 20 mmol/L (22-29); Chloride 104 mmol/L (98-107); Estimated GFR-MDRD Greater than 90; Glucose 137 mg/dL (70-105); Potassium 3.5 mmol/L (3.5-5.1); Sodium 133 mmol/L (136-145)
[2017-05-07 07:26] VITALS: BP 142/78; TEMP 97.8
[2017-05-07] MEDS: Mometasone/Formoterol 120 PUFF INHALER INH SCH (07:35)
[2017-05-07] MEDS: Amlodipine 10 MG TAB PO SCH (07:46)
[2017-05-07] MEDS: Famotidine 20 MG TAB PO SCH (07:47)
[2017-05-07] MEDS: Doxycycline 100 MG CAP PO SCH (07:47)
[2017-05-07] MEDS: guaiFENesin ER 600 MG TAB PO SCH (07:48)
[2017-05-07] MEDS ORDERED: Saccharomyces boulardii 250 MG CAP PO SCH (09:00)
[2017-05-07] MEDS ORDERED: Folic Acid 1 MG TAB PO SCH (09:00)
[2017-05-07] MEDS ORDERED: Cyanocobalamin (Vitamin B-12) 1,000 MCG TAB PO SCH (09:00)
[2017-05-07] MEDS ORDERED: Multivitamin W/ Minerals 1 TAB PO SCH (09:00)
--- NOTE | 2017-05-07 10:20 | PDOC.PN ---
- Subjective Encounter Start Date: 05/07/17 Encounter Start Time: 07:00 -: old records requested/rev Patient seen and examined. No new complaints. No overnight events - Objective Resuscitation Status: Resuscitation Status FULL:Full Resuscitation MAR Reviewed: Yes Vital Signs & Weight: Vital Signs (12 hours) Temp Pulse Resp BP BP Pulse Ox 05/07/17 07:54 97.8 F 83 24 H 142/78 H 98 05/07/17 07:46 83 142/78 H 05/07/17 07:36 83 16 05/07/17 07:35 83 16 05/07/17 07:25 97.8 F 83 24 H 142/78 H 98 05/07/17 04:00 98.0 F 94 16 135/78 97 05/07/17 02:49 82 16 98 05/07/17 00:15 99 05/07/17 00:00 97.5 F L 88 16 133/78 97 05/06/17 22:56 86 16 98 Weight Weight 188 lb I&O: 05/06/17 05/07/17 05/08/17 06:59 06:59 06:59 Intake Total 720 2937 225 Output Total 900 Balance 720 2037 225 Result Diagrams: 05/07/17 05:24 05/07/17 05:24 Phys Exam - Physical Examination Constitutional: NAD HEENT: PERRLA, moist MMs, sclera anicteric Neck: no JVD, supple Respiratory: no wheezing, no rales, no rhonchi Cardiovascular: RRR, no significant murmur, no rub Gastrointestinal: soft, non-tender, no distention, positive bowel sounds Musculoskeletal: no edema, pulses present Neurological: non-focal, normal sensation, moves all 4 limbs Psychiatric: normal affect, A&O x 3 Skin: no rash, normal turgor Dx/Plan (1) Acute diarrhea Code(s): R19.7 - DIARRHEA, UNSPECIFIED Status: Resolved (2) COPD exacerbation Code(s): J44.1 - CHRONIC OBSTRUCTIVE PULMONARY DISEASE W (ACUTE) EXACERBATION Status: Acute (3) Lactic acidosis Code(s): E87.2 - ACIDOSIS Status: Acute (4) Leucocytosis Code(s): D72.829 - ELEVATED WHITE BLOOD CELL COUNT, UNSPECIFIED Status: Acute (5) Abnormal LFTs Code(s): R79.89 - OTHER SPECIFIED ABNORMAL FINDINGS OF BLOOD CHEMISTRY Status : Chronic (6) Alcohol abuse Code(s): F10.10 - ALCOHOL ABUSE, UNCOMPLICATED Status: Chronic Comment: (7) CKD (chronic kidney disease) stage 2, GFR 60-89 ml/min Code(s): N18.2 - CHRONIC KIDNEY DISEASE, STAGE 2 (MILD) Status: Chronic (8) Hypertension Code(s): I10 - ESSENTIAL (PRIMARY) HYPERTENSION Status: Chronic Qualifiers: (9) Macrocytosis Code(s): D75.89 - OTHER SPECIFIED DISEASES OF BLOOD AND BLOOD-FORMING ORGANS Status: Chronic (10) Tobacco abuse Code(s): Z72.0 - TOBACCO USE Status: Chronic - Plan cont current plan of care, 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 Review of Systems - Review of Systems Constitutional: negative: fever, chills, sweats, weakness, malaise, other ENT: negative: Ear Pain, Ear Discharge, Nose Pain, Nose Discharge, Nose Congestion, Mouth Pain, Mouth Swelling, Throat Pain, Throat Swelling, Other Respiratory: negative: Cough, Dry, Shortness of Breath, Hemoptysis, SOB with Excertion, Pleuritic Pain, Sputum, Wheezing Cardiovascular: negative: chest pain, palpitations, orthopnea, paroxysmal nocturnal dyspnea, edema, light headedness, other Gastrointestinal: negative: Nausea, Vomiting, Abdominal Pain, Diarrhea, Constipation, Melena, Hematochezia, Other Genitourinary: negative: Dysuria, Frequency, Incontinence, Hematuria, Retention , Other Musculoskeletal: negative: Neck Pain, Shoulder Pain, Arm Pain, Back Pain, Hand Pain, Leg Pain, Foot Pain, Other Skin: negative: Rash, Lesions, Landry, Bruising, Other - Medications/Allergies Allergies/Adverse Reactions: Allergies Allergy/AdvReac Type Severity Reaction Status Date / Time aspirin Allergy Hives Verified 04/22/17 03:55 ceftriaxone sodium Allergy Hives Verified 04/22/17 03:55 [From Rocephin] Medications: Current Medications Acetaminophen (Tylenol) 650 mg PO Q4H PRN PRN Reason: Headache/Fever or Mild Pain Last Admin: 05/06/17 11:19 Dose: 650 mg Hydrocodone Bitart/Acetaminophen ([place] 5/325) 1 tab PO Q4H PRN PRN Reason: Moderate Pain (4-6) Al Hydroxide/Mg Hydroxide (Maalox) 15 ml PO Q4H PRN PRN Reason: Heartburn or Indigestion Albuterol Sulfate (Ventolin) 2.5 mg NEB Q2H PRN PRN Reason: SOB &/or Wheezing Albuterol Sulfate (Proventil Hfa) 2 puff INH Q4H PRN PRN Reason: Wheezing Albuterol/Ipratropium (Duoneb) 3 ml NEB [id number] [facility] Last Admin: 05/07/17 07:36 Dose: 3 ml Amlodipine Besylate (Norvasc) 10 mg PO DAILY [facility] Last Admin: 05/07/17 07:46 Dose: 10 mg Artificial Tears (Tears Naturale) 0 drop EA EYE PRN PRN PRN Reason: Dry Eyes Cyanocobalamin (Vitamin B-12) 1,000 mcg PO DAILY [facility] Last Admin: 05/07/17 07:47 Dose: 1,000 mcg Doxycycline Hyclate (Vibramycin) 100 mg PO BID [facility] Last Admin: 05/07/17 07:47 Dose: 100 mg Famotidine (Pepcid) 20 mg PO BID [facility] Last Admin: 05/07/17 07:47 Dose: 20 mg Folic Acid (Folvite) 1 mg PO DAILY [facility] Last Admin: 05/07/17 07:48 Dose: 1 mg Guaifenesin (Robitussin Sf) 200 mg PO Q4H PRN PRN Reason: Cough Guaifenesin (Mucinex) 1,200 mg PO Q12HR [facility] Last Admin: 05/07/17 07:48 Dose: 1,200 mg Hydralazine HCl (Apresoline) 10 mg SLOW IVP Q4H PRN PRN Reason: Systolic BP > 180 Iron/Minerals/Multivitamins (Theragran M) 1 tab PO DAILY [facility] Last Admin: 05/07/17 07:49 Dose: 1 tab Loperamide HCl (Imodium) 2 mg PO PRN PRN PRN Reason: Diarrhea/Loose Stools Loratadine (Claritin) 10 mg PO DAILYPRN PRN PRN Reason: Sinus Symptoms Magnesium Hydroxide (Milk Of Magnesium) 30 ml PO DAILYPRN PRN PRN Reason: Constipation Methylprednisolone Sodium Succinate (Solu-Medrol) 40 mg IVP Q6HR [facility] Last Admin: 05/07/17 05:29 Dose: 40 mg Mineral Oil/White Petrolatum (Eucerin Cream) 0 gm TOP BIDPRN PRN PRN Reason: Dry Skin Mometasone Furoate/Formoterol Fumar (Dulera 200 Mcg/5 Mcg Inhaler) 2 puff INH BID-RT [facility] Last Admin: 05/07/17 07:35 Dose: 2 puff Ondansetron HCl (Zofran Odt) 4 mg PO Q6H PRN PRN Reason: Nausea/Vomiting Ondansetron HCl (Zofran) 4 mg IVP Q6H PRN PRN Reason: Nausea/Vomiting Phenol (Chloraseptic [place] 180 Ml Bot) 0 ml PO PRN PRN PRN Reason: Sore Throat Saccharomyces Boulardii (Florastor) 250 mg PO DAILY [facility] Last Admin: 05/07/17 07:49 Dose: 250 mg Senna (Senokot) 2 tab PO HSPRN PRN PRN Reason: Constipation Sodium Chloride (Flush - Normal Saline) 10 ml IVF Q12HR [facility] Last Admin: 05/07/17 07:49 Dose: 10 ml Sodium Chloride (Flush - Normal Saline) 10 ml IVF PRN PRN PRN Reason: Saline Flush Sodium Chloride ([place] Nasal [place] 0.65%) 0 ml EA NARE QIDPRN PRN PRN Reason: Nasal Congestion Temazepam (Restoril) 15 mg PO HSPRN PRN PRN Reason: Insomnia Thiamine HCl (Thiamine) 100 mg PO DAILY [facility] Last Admin: 05/07/17 07:49 Dose: 100 mg
--- NOTE | 2017-05-07 12:58 | DIS ---
DATE OF ADMISSION: 05/06/2017 DATE OF DISCHARGE: 05/07/2017 PRIMARY CARE PHYSICIAN: [facility]. DISCHARGE DISPOSITION: Home. PRIMARY DISCHARGE DIAGNOSES: 1. Chronic obstructive pulmonary disease exacerbation. 2. Leukocytosis. 3. Lactic acidosis. SECONDARY DISCHARGE DIAGNOSES: Tobacco abuse disorder; alcohol abuse; macrocytic anemia; chronic kid esteban disease, stage 2, abnormal LFT due to alcohol abuse; chronic obstructive pulmonary disease; medic ation noncompliance. PRIMARY PROCEDURE/OPERATION: None. RADIOLOGICAL INVESTIGATION: Chest x-ray was normal. CT angio was negative for PE. SIGNIFICANT LABORATORY DATA: WBC 14.2, platelets 237, creatinine 0.77. Lactic acid 3.7. LFTs beatriz l. Cardiac enzymes negative. Urinalysis normal. C. difficile negative. Influenza negative. DISCHARGE MEDICATIONS: ProAir HFA 2 puffs q.4 hourly p.r.n., Ventolin nebulization q.4 hourly p.r.n. , amlodipine 10 mg p.o. daily, vitamin B12 1000 mcg p.o. daily, doxycycline 100 mg p.o. b.i.d. for 7 days, Pepcid 20 mg p.o. b.i.d., folic acid 1 mg p.o. daily, Mucinex 1200 mg twice daily, DuoNeb q.6 h ourly, Dulera 2 puffs inhalation b.i.d., multivitamin 1 tablet p.o. daily, prednisone 20 mg p.o. chiki y for 7 days, Florastor 250 mg p.o. daily for 7 days, thiamine 100 mg p.o. daily. CONTRAINDICATIONS: None. CODE STATUS: FULL CODE. INPATIENT CONSULTANTS: None. ALLERGIES: ASPIRIN AND ROCEPHIN. DISCHARGE PLAN: Post hospital, the patient will follow up with primary care physician. HOSPITAL COURSE: A 56-year-old male, who has alcohol and tobacco abuse disorder as well as severe CO PD, who has multiple admissions in our hospital, who was admitted for observation for increasing shor tness of breath. During this admission, his chest x-ray and CT angio was unremarkable. He was stabl e and that is why we kept him as observation status. He was treated with Solu-Medrol, empiric antibi otic therapy with doxycycline, Dulera, Mucinex, and Solu-Medrol. Next day, the patient's condition w as improved to normal. He had elevated lactic acid, but that is not related with his sepsis. We provided counseling to avoid tobacco and alcohol abuse. He had diarrhea that was related with ant ibiotics and we checked stool for C. difficile, which was normal. His influenza screen is negative. He is on room air. He is ambulatory. He is tolerating p.o. well and he is medically stable for dis charge. We provided medication assistance with help of porter sample case. The patient is seen and examined at bedside today. Please see my progress note from today for furthe r details.
--- NOTE | 2017-05-10 16:59 | EKG ---
Test Reason : SOB Blood Pressure : / mmHG Vent. Rate : 110 BPM Atrial Rate : 110 BPM P-R Int : 136 ms QRS Dur : 076 ms QT Int : 356 ms P-R-T Axes : 000 072 068 degrees QTc Int : 481 ms Sinus tachycardia Otherwise normal ECG Confirmed by MICHELE AHN ([id number]), development editor COURT [place]ILL ([id number]) on 05/10/2017 4:58:32 PM Referred By: LIZ BAZZI Confirmed By:MICHELE AHN
== END 2017-05-07 11:45 | disposition home or self-care (01) ==
LOC: ERS 23:05 → ONC 05-06 03:12
PROVIDERS: ADMIT Family Medicine; ATTEND Family Medicine
DX: J44.1 Chronic obstructive pulmonary disease with (acute) exacerbation (principal); D72.829 Elevated white blood cell count, unspecified; E87.2 Acidosis; I12.9 Hypertensive chronic kidney disease with stage 1 through stage 4 chronic kidney disease, or unspecified chronic kidney disease; N18.2 Chronic kidney disease, stage 2 (mild); D63.1 Anemia in chronic kidney disease; K70.0 Alcoholic fatty liver; R94.5 Abnormal results of liver function studies; R19.7 Diarrhea, unspecified; F17.210 Nicotine dependence, cigarettes, uncomplicated; F10.10 Alcohol abuse, uncomplicated; Z88.1 Allergy status to other antibiotic agents; Z88.8 Allergy status to other drugs, medicaments and biological substances; Z79.899 Other long term (current) drug therapy; Z91.14 Patient's other noncompliance with medication regimen
CPT/HCPCS: 36415; 71045; 71275; 80048; 80053; 81003; 82553; 83605; 83690; 83735; 84484; 85025; 87324; 87449; 93005; 94640; 94760; 96361; 96365; 96366; 96374; 96375; 96376; A4216; G0378; J1956; J2920; J2930; J7620

== ENCOUNTER 2017-05-27 18:18 | Inpatient (IN) | payer SELFPAY ==
[2017-05-27 19:07] LABS: #Basophils 0.1 thou/uL (0.0-0.2); #Eosinphils 0.2 thou/uL (0.0-0.7); #Monocytes 0.5 thou/uL (0.11-0.59); #Neutrophils 2.9 thou/uL (1.40-6.50); %Basophils 1.1 % (0.0-1.0); %Eosinophils 3.9 % (0.0-10.0); %Lymphocytes 34.9 % (21.0-51.0); %Monocytes 8.3 % (0.0-10.0); %Neutrophils 51.8 % (42.0-75.0); Hemoglobin 14.5 g/dL (14.0-18.0); Mean Corpuscular Hemoglobin 33.4 pg (27.0-31.0); Mean Platelet Volume 7.6 fL (7.4-10.4); Platelet Count 259 thou/uL (130-400); RBC Distribution Width 11.8 % (11.5-14.5); Red Blood Cell (RBC) Count 4.36 mill/uL (4.70-6.10); White Blood Cell (WBC) Count 5.7 thou/uL (4.8-10.8)
[2017-05-27 19:15] LABS: PTT 29.1 SEC (22.9-36.1); Prothrombin Time 13.3 SEC (12.0-14.7)
[2017-05-27] MEDS ORDERED: Magnesium Sulfate 2 GM/100 ML BAG ONE (19:28)
--- NOTE | 2017-05-27 19:28 | RAD ---
PORTABLE FRONTAL CHEST RADIOGRAPH 05/27/17 COMPARISON: 05/05/17 HISTORY: Short of breath. FINDINGS: There is no pneumothorax. There is increased linear interstitial density with pulmonary hyperinflatio n, stable. There is nonspecific increased linear density in the right lung base with blunting of the right costophrenic angle suggesting pleural fluid and/or pleural thickening, stable. No focal consolidation or alveolar edema. IMPRESSION: Persistent focal opacity is better assessed on the 05/06/[address] No acute findings. POS: [facility]
[2017-05-27 19:30] LABS: ALT (SGPT) 25 U/L (8-55); AST (SGOT) 25 U/L (5-34); Albumin 4.3 g/dL (3.5-5.0); Alkaline Phosphatase 99 U/L (40-150); Anion Gap 20 mmol/L (10-20); BUN (Urea Nitrogen) 6 mg/dL (8.4-25.7); Bilirubin, Total 0.6 mg/dL (0.2-1.2); CK (CPK) 77 U/L (30-200); Calc. Creatinine Clearance 0 mL/min (70-130); Calcium 9.6 mg/dL (7.8-10.44); Carbon Dioxide 19 mmol/L (22-29); Chloride 98 mmol/L (98-107); Estimated GFR-MDRD 89; Globulin 3.1 g/dL (2.4-3.5); Glucose 84 mg/dL (70-105); Lipase 31 U/L (8-78); Potassium 3.5 mmol/L (3.5-5.1); Protein, Total 7.4 g/dL (6.0-8.3); Sodium 133 mmol/L (136-145)
[2017-05-27 19:32] LABS: CKMB 1.6 ng/mL (0-6.6); Troponin I Less than 0.010 ng/mL (< 0.028)
[2017-05-27] MEDS ORDERED: Albuterol Sulfate 2.5 mg/3 ml Neb ONE ×2 (20:04)
[2017-05-27 20:14] LABS: CO2 Tension 39.5 mmHg (35.0-45.0); pH, Arterial 7.38 (7.35-7.45)
[2017-05-27 20:15] LABS: Actual Bicarbonate (HCO3a) 23.1 mEq/L (22-26); Base Excess (BEa) 1.7 mEq/L (0 (+/-) 2.5); O2 Tension (PaO2) 36.7 mmHg (80.0-100.0)
[2017-05-27 20:16] LABS: Hematocrit-ABG 41.9 % (42.0-52.0); Hemoglobin (Hb) 13.5 g/dL (14.0-18.0)
[2017-05-27 20:19] LABS: Analyzer IN Cardio ER; Calcium, Ionized 1.2 mmol/L (1.12-1.30); Puncture Site RA
[2017-05-27 20:20] LABS: ALV-art Gradient 111.045 (0-20)
[2017-05-27] MEDS ORDERED: Sodium Chloride 0.9% 1,000 ML IV SCH (22:07)
[2017-05-27] MEDS ORDERED: Albuterol Sulfate 2.5 mg/3 ml Neb NEB PRN (22:07)
[2017-05-27] MEDS ORDERED: Acetaminophen 325 MG TAB PO PRN (22:07)
[2017-05-27 22:10] VITALS: BMI 25.6
[2017-05-27 22:57] LABS: Lactic Acid 1.9 mmol/L (0.5-2.2)
[2017-05-28] MEDS ORDERED: HYDROcodone/Acetaminophen 5/325 mg Tablet PO PRN (00:41)
[2017-05-28] MEDS ORDERED: Acetaminophen 325 MG TAB PO PRN (00:41)
[2017-05-28] MEDS ORDERED: HYDROcodone/Acetaminophen 10/325 mg Tablet PO PRN (00:41)
[2017-05-28] MEDS ORDERED: Albuterol Sulfate 2.5 mg/3 ml Neb NEB PRN (00:41)
[2017-05-28] MEDS ORDERED: Ondansetron ODT 4 MG TAB PO PRN (00:41)
[2017-05-28 06:10] LABS: #Lymphocytes 0.4 thou/uL (1.20-3.40); #Neutrophils 2.6 thou/uL (1.40-6.50); %Eosinophils 0.1 % (0.0-10.0); %Lymphocytes 12.4 % (21.0-51.0); %Monocytes 0.5 % (0.0-10.0); Hemoglobin 14.5 g/dL (14.0-18.0); Mean Corpuscular HGB CONC 34.7 g/dL (32.0-36.0); Mean Corpuscular Hemoglobin 34.1 pg (27.0-31.0); Mean Corpuscular Volume 98.4 fl (80.0-94.0); Mean Platelet Volume 8.1 fL (7.4-10.4); Platelet Count 210 thou/uL (130-400); RBC Distribution Width 11.7 % (11.5-14.5); Red Blood Cell (RBC) Count 4.27 mill/uL (4.70-6.10); White Blood Cell (WBC) Count 2.9 thou/uL (4.8-10.8)
[2017-05-28 06:25] LABS: Anion Gap 13 mmol/L (10-20); BUN (Urea Nitrogen) 6 mg/dL (8.4-25.7); Calc. Creatinine Clearance 130 mL/min (70-130); Calcium 9.2 mg/dL (7.8-10.44); Carbon Dioxide 23 mmol/L (22-29); Chloride 101 mmol/L (98-107); Estimated GFR-MDRD Greater than 90; Glucose 174 mg/dL (70-105); Magnesium 2.2 mg/dL (1.6-2.6); Sodium 133 mmol/L (136-145)
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
[2017-05-28] MEDS: Mometasone/Formoterol 120 PUFF INHALER INH SCH ×2 (07:10→18:23)
[2017-05-28] MEDS: Enoxaparin Sodium 40 MG/0.4 ML SYRINGE SC SCH (08:29)
[2017-05-28] MEDS: Famotidine 20 MG TAB PO SCH ×2 (08:29→20:01)
[2017-05-28] MEDS: guaiFENesin ER 600 MG TAB PO SCH ×2 (08:29→20:02)
[2017-05-28] MEDS: Amlodipine 10 MG TAB PO SCH (08:29)
[2017-05-28] MEDS ORDERED: Vancomycin HCl 1 GM in Premix Bag 1 BAG IVPB SCH (09:00)
[2017-05-28] MEDS ORDERED: Lorazepam 2 MG/ML VIAL SLOW IVP PRN (15:09)
--- NOTE | 2017-05-28 15:12 | PDOC.PN ---
- Subjective Encounter Start Date: 05/28/17 Encounter Start Time: 15:16 Subjective: No new complaints. Feels a lot better today -: No acute events overnight. - Objective Resuscitation Status: Resuscitation Status FULL:Full Resuscitation MAR Reviewed: Yes Vital Signs & Weight: Vital Signs (12 hours) Temp Pulse Resp BP Pulse Ox 05/28/17 14:24 107 H 22 H 100 05/28/17 11:45 97.6 F 105 H 18 139/82 99 05/28/17 10:55 104 H 20 99 05/28/17 08:29 112 H 05/28/17 08:25 97.9 F 104 H 20 97 05/28/17 07:50 97.9 F 111 H 18 142/82 H 97 05/28/17 07:14 99 05/28/17 07:13 112 H 20 99 05/28/17 07:10 112 H 20 99 05/28/17 04:00 97.8 F 103 H 20 137/79 98 Weight Weight 194 lb 1.6 oz I&O: 05/27/17 05/28/17 05/29/17 06:59 06:59 06:59 Intake Total 1000 Output Total 1400 Balance -400 Result Diagrams: 05/28/17 05:28 05/28/17 05:28 Phys Exam - Physical Examination Constitutional: NAD HEENT: PERRLA, moist MMs, sclera anicteric Neck: supple, full ROM Respiratory: no rales, no rhonchi, wheezing present, clear to auscultation bilateral Cardiovascular: RRR, no significant murmur, no rub Gastrointestinal: soft, non-tender, no distention, positive bowel sounds Musculoskeletal: no edema, pulses present Neurological: non-focal, moves all 4 limbs Psychiatric: normal affect, A&O x 3 Skin: no rash, normal turgor Dx/Plan (1) Acute hypoxemic respiratory failure Code(s): J96.01 - ACUTE RESPIRATORY FAILURE WITH HYPOXIA Status: Acute Comment: Improving. Now on NC O2. Will wean off O2, continue steroids, nebs and antibiotics. (2) COPD exacerbation Code(s): J44.1 - CHRONIC OBSTRUCTIVE PULMONARY DISEASE W (ACUTE) EXACERBATION Status: Acute Plan: As above. (3) Hypertension Code(s): I10 - ESSENTIAL (PRIMARY) HYPERTENSION Status: Chronic Qualifiers: Hypertension type: essential hypertension Comment: Fairly well controlled. Continue home meds. (4) Alcohol abuse Code(s): F10.10 - ALCOHOL ABUSE, UNCOMPLICATED Status: Chronic Comment: Will place on lorazepam PRN for possible withdrawal even though states he has cut down a lot and denies h/o withdrawal Monitor vital signs. (5) Tobacco abuse Code(s): Z72.0 - TOBACCO USE Status: Chronic Comment: Counselled on cessation. Declines patch. (6) Tachycardia Code(s): R00.0 - TACHYCARDIA, UNSPECIFIED Status: Acute Comment: Likely from nebs. Will monitor for signs of withdrawal and give a bolus of NS. - Plan cont current plan of care, continue antibiotics, respiratory therapy, DVT proph w/lovenox * .
[2017-05-28] MEDS ORDERED: Sodium Chloride 0.45% 1,000 ML IV SCH ×3 (15:15→16:15)
[2017-05-29 05:41] LABS: #Lymphocytes 0.5 thou/uL (1.20-3.40); #Monocytes 0.2 thou/uL (0.11-0.59); #Neutrophils 9.6 thou/uL (1.40-6.50); %Eosinophils 0.1 % (0.0-10.0); %Monocytes 2.1 % (0.0-10.0); %Neutrophils 92.7 % (42.0-75.0); Hemoglobin 13.9 g/dL (14.0-18.0); Mean Corpuscular HGB CONC 33.9 g/dL (32.0-36.0); Mean Corpuscular Hemoglobin 33.4 pg (27.0-31.0); Mean Corpuscular Volume 98.3 fl (80.0-94.0); Mean Platelet Volume 7.8 fL (7.4-10.4); Platelet Count 238 thou/uL (130-400); RBC Distribution Width 11.7 % (11.5-14.5); Red Blood Cell (RBC) Count 4.17 mill/uL (4.70-6.10); White Blood Cell (WBC) Count 10.3 thou/uL (4.8-10.8)
[2017-05-29 05:53] LABS: Anion Gap 14 mmol/L (10-20); BUN (Urea Nitrogen) 8 mg/dL (8.4-25.7); Calc. Creatinine Clearance 133 mL/min (70-130); Calcium 9.3 mg/dL (7.8-10.44); Carbon Dioxide 25 mmol/L (22-29); Chloride 100 mmol/L (98-107); Estimated GFR-MDRD Greater than 90; Glucose 160 mg/dL (70-105); Potassium 3.6 mmol/L (3.5-5.1); Sodium 135 mmol/L (136-145)
[2017-05-29] MEDS: Mometasone/Formoterol 120 PUFF INHALER INH SCH ×2 (07:23→19:21)
[2017-05-29] MEDS: guaiFENesin ER 600 MG TAB PO SCH ×2 (08:24→20:58)
[2017-05-29] MEDS: Enoxaparin Sodium 40 MG/0.4 ML SYRINGE SC SCH (08:24)
[2017-05-29] MEDS: Famotidine 20 MG TAB PO SCH ×2 (08:25→20:59)
[2017-05-29] MEDS: Amlodipine 10 MG TAB PO SCH (08:25)
--- NOTE | 2017-05-29 13:32 | PDOC.PN ---
- Subjective Encounter Start Date: 05/29/17 Encounter Start Time: 13:30 -: No new conplaints; feels better but still SOB when he ambulates -: No acute events overnight - Objective Resuscitation Status: Resuscitation Status FULL:Full Resuscitation MAR Reviewed: Yes Vital Signs & Weight: Vital Signs (12 hours) Temp Pulse Resp BP BP Pulse Ox 05/29/17 10:54 88 20 97 05/29/17 08:50 97.2 F L 99 24 H 94 L 05/29/17 08:25 99 128/70 05/29/17 07:50 97.6 F 99 24 H 128/70 94 L 05/29/17 07:28 97 05/29/17 07:25 97 20 97 05/29/17 07:23 97 18 97 05/29/17 03:57 97.9 F 101 H 16 141/82 H 97 05/29/17 01:39 94 20 99 Weight Weight 194 lb 1.6 oz I&O: 05/28/17 05/29/17 05/30/17 06:59 06:59 06:59 Intake Total 1000 840 Output Total 1400 Balance -400 840 Result Diagrams: 05/29/17 05:08 05/29/17 05:08 Phys Exam - Physical Examination Constitutional: NAD HEENT: PERRLA, moist MMs, sclera anicteric Neck: supple, full ROM Respiratory: no rales, no rhonchi, wheezing present, clear to auscultation bilateral Cardiovascular: RRR, no significant murmur, no rub Gastrointestinal: soft, non-tender, no distention, positive bowel sounds Musculoskeletal: no edema, pulses present Neurological: non-focal, moves all 4 limbs Psychiatric: normal affect, A&O x 3 Skin: no rash, normal turgor Dx/Plan (1) Acute hypoxemic respiratory failure Code(s): J96.01 - ACUTE RESPIRATORY FAILURE WITH HYPOXIA Status: Acute Comment: Improving. HAs been weaned off O2. To continue steroids, nebs and antibiotics. (2) COPD exacerbation Code(s): J44.1 - CHRONIC OBSTRUCTIVE PULMONARY DISEASE W (ACUTE) EXACERBATION Status: Acute Plan: As above. ENcouraged on smoking cessation. (3) Hypertension Code(s): I10 - ESSENTIAL (PRIMARY) HYPERTENSION Status: Chronic Qualifiers: Hypertension type: essential hypertension Comment: Fairly well controlled. Continue home meds. (4) Alcohol abuse Code(s): F10.10 - ALCOHOL ABUSE, UNCOMPLICATED Status: Chronic Comment: Will place on lorazepam PRN for possible withdrawal even though states he has cut down a lot and denies h/o withdrawal Monitor vital signs. (5) Tobacco abuse Code(s): Z72.0 - TOBACCO USE Status: Chronic Comment: Counselled on cessation. Declines patch. (6) Tachycardia Code(s): R00.0 - TACHYCARDIA, UNSPECIFIED Status: Acute Comment: Likely from nebs. Will monitor for signs of withdrawal and give a bolus of NS. - Plan cont current plan of care, respiratory therapy, incentive spirometry * .
--- NOTE | 2017-05-29 13:36 | PDOC.PN ---
- Subjective Encounter Start Date: 05/29/17 Encounter Start Time: 13:27 Subjective: No new complaints, feels better but still feels winded when he ambulates -: No acute events overnight. - Objective Resuscitation Status: Resuscitation Status FULL:Full Resuscitation MAR Reviewed: Yes Vital Signs & Weight: Vital Signs (12 hours) Temp Pulse Resp BP BP Pulse Ox 05/29/17 10:54 88 20 97 05/29/17 08:50 97.2 F L 99 24 H 94 L 05/29/17 08:25 99 128/70 05/29/17 07:50 97.6 F 99 24 H 128/70 94 L 05/29/17 07:28 97 05/29/17 07:25 97 20 97 05/29/17 07:23 97 18 97 05/29/17 03:57 97.9 F 101 H 16 141/82 H 97 05/29/17 01:39 94 20 99 Weight Weight 194 lb 1.6 oz I&O: 05/28/17 05/29/17 05/30/17 06:59 06:59 06:59 Intake Total 1000 840 Output Total 1400 Balance -400 840 Result Diagrams: 05/29/17 05:08 05/29/17 05:08 Phys Exam - Physical Examination Constitutional: NAD HEENT: PERRLA, moist MMs, sclera anicteric Neck: supple, full ROM Respiratory: no wheezing, no rales, no rhonchi Dx/Plan (1) Acute hypoxemic respiratory failure Code(s): J96.01 - ACUTE RESPIRATORY FAILURE WITH HYPOXIA Status: Acute Comment: Improving. Now on NC O2. Will wean off O2, continue steroids, nebs and antibiotics. (2) COPD exacerbation Code(s): J44.1 - CHRONIC OBSTRUCTIVE PULMONARY DISEASE W (ACUTE) EXACERBATION Status: Acute (3) Hypertension Code(s): I10 - ESSENTIAL (PRIMARY) HYPERTENSION Status: Chronic Qualifiers: Hypertension type: essential hypertension Comment: Fairly well controlled. Continue home meds. (4) Alcohol abuse Code(s): F10.10 - ALCOHOL ABUSE, UNCOMPLICATED Status: Chronic Comment: Will place on lorazepam PRN for possible withdrawal even though states he has cut down a lot and denies h/o withdrawal Monitor vital signs. (5) Tobacco abuse Code(s): Z72.0 - TOBACCO USE Status: Chronic Comment: Counselled on cessation. Declines patch. (6) Tachycardia Code(s): R00.0 - TACHYCARDIA, UNSPECIFIED Status: Acute Comment: Likely from nebs. Will monitor for signs of withdrawal and give a bolus of NS. - Plan * .
[2017-05-29] MEDS: Potassium Chloride 20 MEQ TAB PO SCH (18:10)
[2017-05-29] MEDS ORDERED: Polyethylene Glycol 3350 17 GM Packet PO SCH (19:00)
[2017-05-29] MEDS ORDERED: Polyethylene Glycol 3350 17 GM Packet PO PRN (19:00)
[2017-05-29] MEDS: Docusate 100 MG CAP PO SCH (20:58)
[2017-05-30 05:28] LABS: #Lymphocytes 0.4 thou/uL (1.20-3.40); #Monocytes 0.2 thou/uL (0.11-0.59); #Neutrophils 11.3 thou/uL (1.40-6.50); %Basophils 0.1 % (0.0-1.0); %Eosinophils 0.1 % (0.0-10.0); %Lymphocytes 3.5 % (21.0-51.0); %Neutrophils 94.2 % (42.0-75.0); Hemoglobin 13.3 g/dL (14.0-18.0); Mean Corpuscular Hemoglobin 32.8 pg (27.0-31.0); Mean Corpuscular Volume 99.5 fl (80.0-94.0); Mean Platelet Volume 7.9 fL (7.4-10.4); Platelet Count 236 thou/uL (130-400); RBC Distribution Width 11.8 % (11.5-14.5); Red Blood Cell (RBC) Count 4.04 mill/uL (4.70-6.10)
[2017-05-30 05:39] LABS: Anion Gap 13 mmol/L (10-20); BUN (Urea Nitrogen) 11 mg/dL (8.4-25.7); Calc. Creatinine Clearance 133 mL/min (70-130); Carbon Dioxide 24 mmol/L (22-29); Chloride 101 mmol/L (98-107); Estimated GFR-MDRD Greater than 90; Glucose 144 mg/dL (70-105); Sodium 134 mmol/L (136-145)
[2017-05-30 07:49] VITALS: BP 120/69; TEMP 98.1
[2017-05-30] MEDS: Potassium Chloride 20 MEQ TAB PO SCH (07:57)
[2017-05-30] MEDS: guaiFENesin ER 600 MG TAB PO SCH (07:57)
[2017-05-30] MEDS: Docusate 100 MG CAP PO SCH (07:57)
[2017-05-30] MEDS: Famotidine 20 MG TAB PO SCH (07:57)
[2017-05-30] MEDS: Enoxaparin Sodium 40 MG/0.4 ML SYRINGE SC SCH (07:58)
[2017-05-30] MEDS: Amlodipine 10 MG TAB PO SCH (07:58)
[2017-05-30] MEDS: Mometasone/Formoterol 120 PUFF INHALER INH SCH (11:30)
--- NOTE | 2017-05-30 11:30 | DIS ---
DATE OF ADMISSION: 05/27/2017 DATE OF DISCHARGE: 05/30/2017 DISCHARGE DIAGNOSES: Acute respiratory failure with hypoxia, COPD exacerbation, hypertension, alcoho l abuse, tobacco abuse. HOSPITAL COURSE: Mr. Milian is a 56-year-old gentleman, who was entered to the emergency room with a 2-day history of shortness of breath, accompanied with chest tightness and wheezing. He had incre ased dyspnea on examination, also on some orthopnea, but no PND. In addition, he had a cough product rosette of thick, less sputum, but no hemoptysis. Due to the shortness of breath, he called EMS. On arr ival, he was reportedly hypoxic and started on Solu-Medrol 125 mg and 2 DuoNeb treatments, and wu t to the emergency room. He have a history of chronic alcohol abuse, which he states is down to 1-2 drinks daily, have stopped smoking cigarettes about 2-3 weeks ago. There was no associated symptoms. At the emergency room, he had an ABG done with a pCO2 of 36.7. Chest x-ray showed no acute changes , but showed hyperinflation and linear density in the right base. CBC was largely unremarkable. CMP showed a troponin of 1.6. Lactic acid elevated at 4.5, but improved with hydration. PH was 7.38, p O2 was 36.7. Diagnosis of acute hypoxemic respiratory was made. He was started on oxygen supplement ation, IV steroids, antibiotics, and scheduled p.r.n. nebulizer treatment. He continues to improve w ith treatment and incentive spirometer was prescribed and by day #3, he was completely weaned off oxy gen saturation on 98% on room air with very minimal wheezing. He felt stable for discharge and was d ischarged without incident. PHYSICAL EXAMINATION: VITAL SIGNS: Temperature 98.1 degree Fahrenheit, pulse 93, blood pressure 120/69, oxygen saturation 97% on room air. GENERAL: Not in acute distress, sitting comfortably in bed. HEENT: PERRLA. Moist mucous membranes. Sclerae nonicteric, not pale. NECK: Supple, full range of movement. RESPIRATORY: Minimal wheezing with clear breath sounds bilaterally, otherwise no rales or rhonchi. CARDIOVASCULAR: Regular rate and rhythm. No murmurs, rubs, or gallops. GASTROINTESTINAL: Soft, tender, not distended. Positive bowel sounds. No organomegaly. MUSCULOSKELETAL: No edema. Pulse is present. NEUROLOGIC: Alert and oriented to time, place, and person. No focal deficits. PSYCHIATRIC: Normal mood and affect. SKIN: Warm and well perfused. No rashes or lesions. IMAGINGZ: Per HPI. LABORATORY DATA: WBC is 12, hemoglobin 13.3, platelets 236. Sodium 134, potassium 4, chloride 101, anion gap 13, carbon dioxide 24, BUN 11, creatinine 0.78. CONSULTS: None. PROCEDURES: None. DIET: Heart healthy including low sodium. DISCHARGE MEDICATIONS: Albuterol sulfate inhaler 2 puffs q.4 hours p.r.n. for shortness of breath, a lbuterol sulfate nebulizer q.2 hours p.r.n. for shortness of breath, amlodipine 10 mg daily, vitamin B12 1000 mcg daily, famotidine 20 mg b.i.d., folic acid 1 mg daily, guaifenesin 1200 mg p.o. q.12 edwin rs, ipratropium/albuterol sulfate nebulizer q.6 hours p.r.n., levofloxacin 750 mg daily, mometasone/f ormoterol (Dulera) 2 puff inhaled b.i.d., multivitamin with minerals 1 tab daily, prednisone 40 mg q. a.m., Saccharomyces boulardii 250 mg daily, thiamine 100 mg daily. CONDITION AT DISCHARGE: Stable and improved. ACTIVITY: To resume as tolerated. HEALTH CARE GOALS: Follow up with primary care physician within 1 week of discharge. DISCHARGE TIME: 55 minutes including chart review and documentation.
--- NOTE | 2017-06-21 11:44 | EKG ---
Test Reason : Blood Pressure : / mmHG Vent. Rate : 091 BPM Atrial Rate : 091 BPM P-R Int : 168 ms QRS Dur : 066 ms QT Int : 340 ms P-R-T Axes : 089 061 061 degrees QTc Int : 418 ms Normal sinus rhythm Septal infarct , age undetermined Abnormal ECG Confirmed by WAI BILLY, SHEREE Bains ([id number]), desk editor HIWOT MURPHY ([id number]) on 06/21/2017 11:44:03 AM Referred By: Confirmed By:SHEREE CARRENO MD
== END 2017-05-30 11:38 | disposition home or self-care (01) | DRG 190 ==
LOC: ERS 18:18 → ONC 20:55
PROVIDERS: ADMIT Family Medicine; ATTEND Family Medicine
DX: J44.1 Chronic obstructive pulmonary disease with (acute) exacerbation (principal); J96.01 Acute respiratory failure with hypoxia; Z88.1 Allergy status to other antibiotic agents; I10 Essential (primary) hypertension; F10.20 Alcohol dependence, uncomplicated; F17.210 Nicotine dependence, cigarettes, uncomplicated
CPT/HCPCS: 36415; 71045; 80048; 80053; 82553; 82805; 83605; 83690; 83735; 83880; 84484; 85025; 85610; 85730; 87040; 93005; 94640; 94664; 96365; 96367; A4216; J1650; J1956; J2920; J3370; J3475; J7611; J7620

== ENCOUNTER 2017-06-13 09:33 | Emergency (ER) | payer SELFPAY ==
[2017-06-13 10:23] LABS: #Basophils 0.1 thou/uL (0.0-0.2); #Eosinphils 0.6 thou/uL (0.0-0.7); #Lymphocytes 1.2 thou/uL (1.20-3.40); #Monocytes 0.7 thou/uL (0.11-0.59); #Neutrophils 5.1 thou/uL (1.40-6.50); %Basophils 1.1 % (0.0-1.0); %Eosinophils 8.3 % (0.0-10.0); %Lymphocytes 15.2 % (21.0-51.0); %Monocytes 9.1 % (0.0-10.0); %Neutrophils 66.2 % (42.0-75.0); Hemoglobin 14.7 g/dL (14.0-18.0); Mean Corpuscular HGB CONC 33.9 g/dL (32.0-36.0); Mean Corpuscular Hemoglobin 33.1 pg (27.0-31.0); Mean Corpuscular Volume 97.5 fl (80.0-94.0); Mean Platelet Volume 7.2 fL (7.4-10.4); Platelet Count 239 thou/uL (130-400); RBC Distribution Width 12.2 % (11.5-14.5); Red Blood Cell (RBC) Count 4.46 mill/uL (4.70-6.10); White Blood Cell (WBC) Count 7.7 thou/uL (4.8-10.8)
--- NOTE | 2017-06-13 10:28 | RAD ---
ONE VIEW CHEST: History Dyspnea. COMPARISON: 05/27/17. FINDINGS: Chronic changes of the right lung base. Stable volume loss in the right lower lobe. Stable compensa tory hyperinflation of the left lung. Normal cardiac silhouette. No pneumothorax. IMPRESSION: No significant interval change. POS: [facility]
[2017-06-13] MEDS ORDERED: Albuterol Sulfate 2.5 mg/3 ml Neb ONE ×2 (10:45→11:37)
[2017-06-13 10:48] LABS: CKMB 1.4 ng/mL (0-6.6); Troponin I Less than 0.010 ng/mL (< 0.028)
[2017-06-13 10:49] LABS: ALT (SGPT) 34 U/L (8-55); AST (SGOT) 23 U/L (5-34); Albumin 4.5 g/dL (3.5-5.0); Alkaline Phosphatase 82 U/L (40-150); BUN (Urea Nitrogen) 8 mg/dL (8.4-25.7); Bilirubin, Total 0.5 mg/dL (0.2-1.2); CK (CPK) 47 U/L (30-200); Calc. Creatinine Clearance 0 mL/min (70-130); Calcium 10.1 mg/dL (7.8-10.44); Carbon Dioxide 27 mmol/L (22-29); Chloride 99 mmol/L (98-107); Estimated GFR-MDRD 84; Glucose 112 mg/dL (70-105); Potassium 4.7 mmol/L (3.5-5.1); Protein, Total 7.5 g/dL (6.0-8.3); Sodium 136 mmol/L (136-145)
[2017-06-13 10:52] LABS: Anion Gap 15 mmol/L (10-20)
[2017-06-13] MEDS ORDERED: Water For Inject, Bacteriostat 30 ML ONE (10:55)
[2017-06-13] MEDS ORDERED: methylPREDNISolone Sod Succ/PF 125 MG/2 ML VIAL ONE (10:55)
== END 2017-06-13 12:30 | disposition home or self-care (01) ==
LOC: ERS 09:33
DX: J44.1 Chronic obstructive pulmonary disease with (acute) exacerbation (principal); I10 Essential (primary) hypertension; Z79.899 Other long term (current) drug therapy
CPT/HCPCS: 71045; 80053; 82550; 82553; 84484; 85025; 93005; 94640; 94760; 96374; J2930; J7611; J7620

== ENCOUNTER 2017-06-26 02:53 | Inpatient (IN) | payer SELFPAY ==
[2017-06-26 03:53] LABS: #Basophils 0.1 thou/uL (0.0-0.2); #Eosinphils 1.3 thou/uL (0.0-0.7); #Monocytes 0.4 thou/uL (0.11-0.59); #Neutrophils 2.5 thou/uL (1.40-6.50); %Basophils 1.3 % (0.0-1.0); %Eosinophils 20.3 % (0.0-10.0); %Lymphocytes 31.3 % (21.0-51.0); %Monocytes 7.1 % (0.0-10.0); Hemoglobin 13.9 g/dL (14.0-18.0); Mean Corpuscular HGB CONC 34.6 g/dL (32.0-36.0); Mean Corpuscular Hemoglobin 33.5 pg (27.0-31.0); Mean Corpuscular Volume 96.8 fl (80.0-94.0); Mean Platelet Volume 7.2 fL (7.4-10.4); Platelet Count 255 thou/uL (130-400); RBC Distribution Width 12.5 % (11.5-14.5); Red Blood Cell (RBC) Count 4.15 mill/uL (4.70-6.10); White Blood Cell (WBC) Count 6.2 thou/uL (4.8-10.8)
[2017-06-26 04:06] LABS: ALT (SGPT) 24 U/L (8-55); AST (SGOT) 30 U/L (5-34); Albumin 4.1 g/dL (3.5-5.0); Alkaline Phosphatase 76 U/L (40-150); Anion Gap 16 mmol/L (10-20); BUN (Urea Nitrogen) 5 mg/dL (8.4-25.7); Bilirubin, Total 0.3 mg/dL (0.2-1.2); Calc. Creatinine Clearance 0 mL/min (70-130); Calcium 9.2 mg/dL (7.8-10.44); Carbon Dioxide 22 mmol/L (22-29); Chloride 98 mmol/L (98-107); Estimated GFR-MDRD Greater than 90; Globulin 2.6 g/dL (2.4-3.5); Glucose 111 mg/dL (70-105); Potassium 3.4 mmol/L (3.5-5.1); Protein, Total 6.7 g/dL (6.0-8.3); Sodium 133 mmol/L (136-145)
[2017-06-26 04:09] LABS: CKMB 2.4 ng/mL (0-6.6); Troponin I Less than 0.010 ng/mL (< 0.028)
[2017-06-26] MEDS ORDERED: Albuterol Sulfate 2.5 mg/3 ml Neb NEB PRN (06:36)
[2017-06-26] MEDS ORDERED: Acetaminophen 325 MG TAB PO PRN ×2 (06:37→09:19)
[2017-06-26] MEDS ORDERED: Ondansetron ODT 4 MG TAB PO PRN (06:37)
[2017-06-26] MEDS ORDERED: Ondansetron HCl/PF 4 MG/2 ML Vial IVP PRN (06:37)
[2017-06-26 07:09] VITALS: BMI 25.7
[2017-06-26 07:37] LABS: Lactic Acid 3.8 mmol/L (0.5-2.2)
--- NOTE | 2017-06-26 08:47 | RAD ---
AP VIEW CHEST: 06/26/2017 HISTORY: Dyspnea. Difficulty breathing. COMPARISON: 06/13/2017 FINDINGS: AP view chest demonstrates some blunting of the right costophrenic angle, compatible with some right pleural scarring or tiny right-sided pleural effusion, unchanged since the previous exam. Mild pulmo nary vascular congestion is seen. No evidence of left-sided effusion is seen. No other acute intrat horacic abnormalities seen. IMPRESSION: Some minimal right costophrenic angle blunting and/or scarring. POS: [facility]
[2017-06-26] MEDS ORDERED: Acetaminophen 650 MG Suppository PR PRN (09:19)
[2017-06-26] MEDS ORDERED: Bisacodyl 5 MG TAB PO PRN (09:19)
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
[2017-06-26] MEDS ORDERED: Diazepam 5 MG TAB PO PRN (12:27)
[2017-06-26] MEDS ORDERED: Thiamine HCl 200 MG/2 ML VIAL IM SCH (12:30)
[2017-06-26] MEDS ORDERED: Diazepam 5 MG TAB PO SCH (12:30)
[2017-06-26] MEDS ORDERED: Potassium Chloride 20 MEQ TAB PO SCH (13:00)
[2017-06-26] MEDS: Magnesium Sulfate 1 GM, Admixture Fee 1 EACH in Sodium Chloride 0.9% 100 ML IVPB SCH ×2 (14:35→14:36)
[2017-06-27] MEDS ORDERED: Diazepam 5 MG TAB PO PRN (04:00)
[2017-06-27 05:47] LABS: #Lymphocytes 0.4 thou/uL (1.20-3.40); #Monocytes 0.2 thou/uL (0.11-0.59); #Neutrophils 6.6 thou/uL (1.40-6.50); %Basophils 0.4 % (0.0-1.0); %Eosinophils 0.1 % (0.0-10.0); %Lymphocytes 5.2 % (21.0-51.0); %Neutrophils 92.3 % (42.0-75.0); Hemoglobin 13.9 g/dL (14.0-18.0); Mean Corpuscular HGB CONC 33.8 g/dL (32.0-36.0); Mean Corpuscular Hemoglobin 33.3 pg (27.0-31.0); Mean Corpuscular Volume 98.6 fl (80.0-94.0); Mean Platelet Volume 7.2 fL (7.4-10.4); Platelet Count 252 thou/uL (130-400); RBC Distribution Width 12.7 % (11.5-14.5); Red Blood Cell (RBC) Count 4.17 mill/uL (4.70-6.10); White Blood Cell (WBC) Count 7.1 thou/uL (4.8-10.8)
[2017-06-27 05:59] LABS: Anion Gap 12 mmol/L (10-20); BUN (Urea Nitrogen) 6 mg/dL (8.4-25.7); Calc. Creatinine Clearance 132 mL/min (70-130); Calcium 9.2 mg/dL (7.8-10.44); Carbon Dioxide 25 mmol/L (22-29); Chloride 100 mmol/L (98-107); Estimated GFR-MDRD Greater than 90; Glucose 195 mg/dL (70-105); Potassium 3.7 mmol/L (3.5-5.1); Sodium 133 mmol/L (136-145)
[2017-06-27] MEDS: Enoxaparin Sodium 40 MG/0.4 ML SYRINGE SC SCH (08:55)
[2017-06-27] MEDS: Amlodipine 10 MG TAB PO SCH (08:55)
[2017-06-27] MEDS: Multivitamin W/ Minerals 1 TAB PO SCH (08:56)
[2017-06-27] MEDS: Folic Acid 1 MG TAB PO SCH (08:56)
[2017-06-27] MEDS: Magnesium Oxide 400 MG TAB PO SCH (08:56)
--- NOTE | 2017-06-27 17:39 | PDOC.PN ---
- Subjective Encounter Start Date: 06/27/17 Encounter Start Time: 17:37 Pt seen for followup re: acute on chronic respiratory failure. Still coughing a lot. Whitish sputum. No fevers or chills. No chest pain. - Objective MAR Reviewed: Yes Vital Signs & Weight: Vital Signs (12 hours) Temp Pulse Resp BP BP Pulse Ox 06/27/17 15:51 98 F 98 20 132/76 99 06/27/17 13:45 88 20 06/27/17 11:28 98.3 F 91 20 130/82 98 06/27/17 09:03 100 06/27/17 09:01 96 20 100 06/27/17 09:00 167/87 H 06/27/17 08:55 90 167/87 H 06/27/17 08:00 97.8 F 90 24 H 167/87 H 98 Weight Weight 195 lb I&O: 06/26/17 06/27/17 06/28/17 06:59 06:59 06:59 Intake Total 1200 Output Total 900 Balance 300 Result Diagrams: 06/27/17 05:14 06/27/17 05:14 Phys Exam - Physical Examination Constitutional: NAD HEENT: PERRLA, moist MMs, sclera anicteric, oral pharynx no lesions Neck: no nodes, no JVD, supple, full ROM Respiratory: no rales, no rhonchi, wheezing present Cardiovascular: RRR, no rub Gastrointestinal: soft, non-tender, no distention, positive bowel sounds Musculoskeletal: no edema Neurological: moves all 4 limbs Psychiatric: normal affect, A&O x 3 Deviation from normal: tattoos Dx/Plan (1) Acute and chronic respiratory failure Code(s): J96.20 - ACUTE AND CHR RESP FAILURE, UNSP W HYPOXIA OR HYPERCAPNIA Status: Acute Comment: Mild improvement since yesterday. (2) COPD exacerbation Code(s): J44.1 - CHRONIC OBSTRUCTIVE PULMONARY DISEASE W (ACUTE) EXACERBATION Status: Acute Comment: Continue oxygen, steroids, bronchodilators and antibiotics. Add Mucinex DM and Tessalon. (3) Hyponatremia Code(s): E87.1 - HYPO-OSMOLALITY AND HYPONATREMIA Status: Acute Comment: Mild, asymptomatic (4) Alcohol abuse Code(s): F10.10 - ALCOHOL ABUSE, UNCOMPLICATED Status: Chronic Comment: Continue ASE protocol (5) Hypokalemia Code(s): E87.6 - HYPOKALEMIA Status: Resolved - Plan * . Review of Systems - Review of Systems Constitutional: negative: fever, chills, sweats, weakness, malaise Respiratory: Cough, Shortness of Breath, SOB with Excertion, Sputum. negative: Dry, Hemoptysis, Pleuritic Pain, Wheezing Cardiovascular: negative: chest pain, palpitations, orthopnea, paroxysmal nocturnal dyspnea, edema, light headedness Gastrointestinal: negative: Nausea, Vomiting, Abdominal Pain, Diarrhea, Constipation, Melena, Hematochezia Genitourinary: negative: Dysuria, Frequency, Incontinence, Hematuria, Retention - Medications/Allergies Allergies/Adverse Reactions: Allergies Allergy/AdvReac Type Severity Reaction Status Date / Time aspirin Allergy Hives Verified 06/26/17 07:05 ceftriaxone sodium Allergy Hives Verified 06/26/17 07:05 [From Rocephin] Medications: Current Medications Acetaminophen (Tylenol) 650 mg PO Q4H PRN PRN Reason: Headache/Fever or Pain Acetaminophen (Tylenol) 650 mg MD Q4H PRN PRN Reason: Headache/Fever or Pain Albuterol/Ipratropium (Duoneb) 3 ml NEB [id number] PRN PRN Reason: SOB &/or Wheezing Last Admin: 06/26/17 09:47 Dose: 3 ml Albuterol/Ipratropium (Duoneb) 3 ml NEB [id number] [facility] Last Admin: 06/27/17 13:45 Dose: 3 ml Amlodipine Besylate (Norvasc) 10 mg PO DAILY [facility] Last Admin: 06/27/17 08:55 Dose: 10 mg Bisacodyl (Dulcolax) 10 mg PO DAILYPRN PRN PRN Reason: Constipation Last Admin: 06/27/17 08:59 Dose: 10 mg Diazepam (Valium) 5 mg PO Q4H PRN PRN Reason: FOR ASE 10 OR GREATER Enoxaparin Sodium (Lovenox) 40 mg SC 0900 [facility] Last Admin: 06/27/17 08:55 Dose: 40 mg Folic Acid (Folvite) 1 mg PO DAILY [facility] Last Admin: 06/27/17 08:56 Dose: 1 mg Levofloxacin 750 mg/ Device 150 mls @ 100 mls/hr IVPB 0600 [facility] Last Admin: 06/27/17 05:39 Dose: 150 mls Iron/Minerals/Multivitamins (Theragran M) 1 tab PO DAILY [facility] Last Admin: 06/27/17 08:56 Dose: 1 tab Magnesium Oxide (Magnesium Oxide) 400 mg PO DAILY [facility] Last Admin: 06/27/17 08:56 Dose: 400 mg Methylprednisolone Sodium Succinate (Solu-Medrol) 40 mg IVP Q6HR [facility] Last Admin: 06/27/17 12:29 Dose: 40 mg Sodium Chloride (Flush - Normal Saline) 10 ml IVF Q12HR [facility] Last Admin: 06/27/17 08:57 Dose: 10 ml Sodium Chloride (Flush - Normal Saline) 10 ml IVF PRN PRN PRN Reason: Saline Flush Thiamine HCl (Thiamine) 100 mg PO DAILY [facility] Last Admin: 06/27/17 08:56 Dose: 100 mg
[2017-06-27] MEDS ORDERED: Benzonatate 100 MG CAP PO PRN (17:41)
[2017-06-27] MEDS: guaiFENesin/DM ER PO SCH (20:24)
[2017-06-28] MEDS: Enoxaparin Sodium 40 MG/0.4 ML SYRINGE SC SCH (08:32)
[2017-06-28] MEDS: Folic Acid 1 MG TAB PO SCH (08:32)
[2017-06-28] MEDS: Amlodipine 10 MG TAB PO SCH (08:32)
[2017-06-28] MEDS: guaiFENesin/DM ER PO SCH (08:32)
[2017-06-28] MEDS: Multivitamin W/ Minerals 1 TAB PO SCH (08:33)
[2017-06-28] MEDS: Magnesium Oxide 400 MG TAB PO SCH (08:33)
--- NOTE | 2017-06-28 15:20 | DIS ---
PRIMARY CARE PHYSICIAN: [facility] PRIMARY DISCHARGE DIAGNOSES: 1. Acute hypoxic respiratory failure likely secondary to chronic obstructive pulmonary disease exace rbation. 2. Chronic obstructive pulmonary disease exacerbation. 3. Hypokalemia, resolved. 4. Hyponatremia, resolved. 5. Hypertension. 6. Tobacco abuse. 7. Alcohol abuse, ongoing. DISCHARGE MEDICATIONS: 1. Medrol dose tapering pack. 2. Advair Diskus 250/50, one inhaler b.i.d. 3. Amlodipine 10 mg daily. 4. Albuterol inhaler as needed. 5. DuoNeb as needed. 6. Levaquin 500 mg daily for 7 more days. PROCEDURES DONE IN THE HOSPITAL: Include chest x-ray upon presentation, which was not very specific for any acute processes. HOSPITAL COURSE: Mr. Milian is a 56-year-old male with known history of alcohol abuse, COPD, and t obacco abuse who presented to the emergency room with complaints of worsening shortness of breath. U chip presentation, he was admitted with a diagnosis of acute hypoxic respiratory failure likely second christina to chronic obstructive pulmonary disease exacerbation. He was hemodynamically stable upon presen tation. His oxygen saturation was 100% on 2 liters of nasal cannula. Follow up physician upon admis lady. His chest x-ray did not support any pulmonary infiltrates. He did have elevated lactic acid o f 3.8, decreased sodium of 133, microcytic anemia with hemoglobin of 13.9 and potassium of 3.4. BNP and troponin were normal. Please see admission history and physical for further details. HOSPITAL COURSE: He was started and continued, IV steroids, IV antibiotics, nebulizers. He was rest arted on his Norvasc. Reportedly, he was not able to take any of his medications as per the prior to discharge because of financial constraints and simple ignorance. By the time of discharge, he was back to his baseline and was weaned off of oxygen and tolerated it v gaudencio well. He was seen and examined prior to discharge. PHYSICAL EXAMINATION: VITAL SIGNS: Temperature 98.1, respirations 16, pulse 80, saturating 97% on room air. GENERAL: No acute distress, awake, alert, oriented x3. CHEST: Clear to auscultation with few scattered scant wheezes. No crackles. CARDIOVASCULAR: Rate and rhythm is regular without any murmur, rubs or gallops. NEUROLOGICAL: Nonfocal. At this time, the patient will be restarted on the medications as prescribed above. Because of the f inancial reasons he is not discharged on the appropriate medications, but the medications that he dante ht be able to afford. Case management was consulted for prescription help. The patient is also told about the Good Rx coupons and he reports that he has the card in his wallet. He is encouraged to us e it and fill his prescriptions as provided above. He is also instructed to follow up with his prima care physician in 2-4 days. Discharge plan was discussed with the patient who verbalized understa nding. Total time spent in the discharge of this patient 32 minutes.
[2017-06-28 15:59] VITALS: BP 137/74; TEMP 98
--- NOTE | 2017-07-09 15:08 | EKG ---
Test Reason : Blood Pressure : / mmHG Vent. Rate : 106 BPM Atrial Rate : 106 BPM P-R Int : 000 ms QRS Dur : 084 ms QT Int : 342 ms P-R-T Axes : 079 070 070 degrees QTc Int : 454 ms Sinus tachycardia Otherwise normal ECG Confirmed by BALAJI DIAZ D.O. ([id number]), assignment editor HIWOT MURPHY ([id number]) on 07/09/2017 3:07:50 PM Referred By: Confirmed By:BALAJI DIAZ D.O.
== END 2017-06-28 16:32 | disposition home or self-care (01) | DRG 189 ==
LOC: ERS 02:53 → ONC 04:57
PROVIDERS: ADMIT Internal Medicine Infectious Disease; ATTEND Internal Medicine Infectious Disease
DX: J96.01 Acute respiratory failure with hypoxia (principal); J44.1 Chronic obstructive pulmonary disease with (acute) exacerbation; E87.1 Hypo-osmolality and hyponatremia; I10 Essential (primary) hypertension; E87.6 Hypokalemia; F10.10 Alcohol abuse, uncomplicated; F17.210 Nicotine dependence, cigarettes, uncomplicated; Z88.6 Allergy status to analgesic agent; Z88.1 Allergy status to other antibiotic agents; Z79.899 Other long term (current) drug therapy
CPT/HCPCS: 36415; 71045; 80048; 80053; 82553; 83605; 83880; 84484; 85025; 93005; 94640; 96365; A4216; J1650; J1956; J2920; J3411; J3475; J7050; J7620

== ENCOUNTER 2017-07-07 18:55 | Emergency (ER) | payer SELFPAY ==
[2017-07-07 20:21] LABS: #Basophils 0.1 thou/uL (0.0-0.2); #Eosinphils 0.2 thou/uL (0.0-0.7); #Lymphocytes 1.5 thou/uL (1.20-3.40); #Monocytes 0.7 thou/uL (0.11-0.59); #Neutrophils 3.8 thou/uL (1.40-6.50); %Basophils 1.4 % (0.0-1.0); %Eosinophils 2.6 % (0.0-10.0); %Lymphocytes 23.2 % (21.0-51.0); %Monocytes 11.7 % (0.0-10.0); %Neutrophils 61.2 % (42.0-75.0); Hemoglobin 14.9 g/dL (14.0-18.0); Mean Corpuscular HGB CONC 33.5 g/dL (32.0-36.0); Mean Corpuscular Hemoglobin 33.2 pg (27.0-31.0); Mean Corpuscular Volume 99.1 fl (80.0-94.0); Mean Platelet Volume 8.4 fL (7.4-10.4); Platelet Count 257 thou/uL (130-400); Red Blood Cell (RBC) Count 4.49 mill/uL (4.70-6.10); White Blood Cell (WBC) Count 6.3 thou/uL (4.8-10.8)
[2017-07-07 20:46] LABS: CKMB 1.1 ng/mL (0-6.6); Troponin I Less than 0.010 ng/mL (< 0.028)
[2017-07-07] MEDS ORDERED: Dexamethasone 4 MG TAB ONE (20:58)
[2017-07-07] MEDS ORDERED: Dexamethasone 10 MG/ML VIAL ONE (20:59)
[2017-07-07 21:00] LABS: ALT (SGPT) 47 U/L (8-55); AST (SGOT) 38 U/L (5-34); Albumin 4.6 g/dL (3.5-5.0); Alkaline Phosphatase 77 U/L (40-150); Anion Gap 18 mmol/L (10-20); BUN (Urea Nitrogen) 6 mg/dL (8.4-25.7); Calc. Creatinine Clearance 0 mL/min (70-130); Carbon Dioxide 20 mmol/L (22-29); Chloride 101 mmol/L (98-107); Estimated GFR-MDRD Greater than 90; Glucose 81 mg/dL (70-105); Protein, Total 7.6 g/dL (6.0-8.3); Sodium 135 mmol/L (136-145)
[2017-07-07] MEDS ORDERED: Albuterol Sulfate 2.5 mg/3 ml Neb ONE (21:00)
[2017-07-07] MEDS ORDERED: Dexamethasone 4 mg/ml Vial ONE (21:13)
--- NOTE | 2017-07-07 21:31 | RAD ---
PORTABLE CHEST: HISTORY: Dyspnea. COMPARISON: 06/26/2017 FINDINGS: There continues to be evidence of right side effusion and some right basilar atelectasis or infiltrat e. The lungs otherwise remain clear and unchanged in appearance. No evidence of vascular congestion . IMPRESSION: Small right effusion and right basilar atelectasis/infiltrate, unchanged in appearance. POS: [facility]
== END 2017-07-07 21:23 | disposition home or self-care (01) ==
LOC: ERS 18:55
DX: J44.1 Chronic obstructive pulmonary disease with (acute) exacerbation (principal); I10 Essential (primary) hypertension; Z79.899 Other long term (current) drug therapy
CPT/HCPCS: 71045; 80053; 82553; 84484; 85025; 93005; 94640; 96372; J1100; J7611; J7620; J8540

== ENCOUNTER 2017-09-24 19:26 | Inpatient (IN) | payer SELFPAY ==
[2017-09-24 20:07] LABS: #Basophils 0.1 thou/uL (0.0-0.2); #Eosinphils 1.4 thou/uL (0.0-0.7); #Lymphocytes 2.8 thou/uL (1.20-3.40); #Monocytes 0.7 thou/uL (0.11-0.59); #Neutrophils 2.4 thou/uL (1.40-6.50); %Basophils 1.5 % (0.0-1.0); %Eosinophils 18.8 % (0.0-10.0); %Lymphocytes 37.5 % (21.0-51.0); %Monocytes 9.6 % (0.0-10.0); %Neutrophils 32.6 % (42.0-75.0); Hemoglobin 14.9 g/dL (14.0-18.0); Mean Corpuscular HGB CONC 34.5 g/dL (32.0-36.0); Mean Corpuscular Hemoglobin 33.9 pg (27.0-31.0); Mean Corpuscular Volume 98.2 fL (78.0-98.0); Mean Platelet Volume 7.2 fL (7.4-10.4); Platelet Count 206 thou/uL (130-400); RBC Distribution Width 11.3 % (11.5-14.5); Red Blood Cell (RBC) Count 4.38 mill/uL (4.70-6.10); White Blood Cell (WBC) Count 7.4 thou/uL (4.8-10.8)
[2017-09-24 20:26] LABS: ALT (SGPT) 104 U/L (8-55); AST (SGOT) 153 U/L (5-34); Albumin 4.2 g/dL (3.5-5.0); Alkaline Phosphatase 129 U/L (40-150); Anion Gap 18 mmol/L (10-20); BUN (Urea Nitrogen) 4 mg/dL (8.4-25.7); Bilirubin, Total 0.6 mg/dL (0.2-1.2); Calc. Creatinine Clearance 0 mL/min (70-130); Calcium 9.1 mg/dL (7.8-10.44); Carbon Dioxide 19 mmol/L (22-29); Chloride 94 mmol/L (98-107); Estimated GFR-MDRD Greater than 90; Globulin 3.1 g/dL (2.4-3.5); Glucose 91 mg/dL (70-105); Potassium 4.4 mmol/L (3.5-5.1); Protein, Total 7.3 g/dL (6.0-8.3); Sodium 127 mmol/L (136-145)
[2017-09-24 20:30] LABS: CKMB 2.9 ng/mL (0-6.6); Troponin I Less than 0.010 ng/mL (< 0.028)
--- NOTE | 2017-09-24 20:32 | RAD ---
RADIOGRAPH CHEST 1 VIEW: Date: 09/24/17 Time: 7:25 p.m. HISTORY: 57-year-old male with dyspnea. COMPARISON: 11/27/16. FINDINGS: Bilateral pulmonary hyperinflation. Hyperlucency of bilateral upper lobes. These are consistent with COPD. No cardiomegaly. Architectural distortion with pulmonary scarring and basilar pleural thickenin g at the right lower lung zone. No new air space densities. No pulmonary edema. No pneumothorax. No m ajor interval change. IMPRESSION: 1. Chronic pulmonary and pleural changes at the right lower lung zone, including pleural thicken ing and pulmonary scarring (and round atelectasis as demonstrated on prior CT). 2. Emphysema. 3. No acute findings. CHUN [] POS: [facility]
[2017-09-24] MEDS ORDERED: methylPREDNISolone Sod Succ/PF 125 MG/2 ML VIAL ONE (21:48)
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
[2017-09-25] MEDS ORDERED: Ondansetron ODT 4 MG TAB SL PRN (00:42)
[2017-09-25] MEDS ORDERED: Acetaminophen 325 MG TAB PO PRN (00:42)
[2017-09-25] MEDS ORDERED: Ondansetron HCl/PF 4 MG/2 ML Vial IVP PRN (00:42)
[2017-09-25 01:07] VITALS: BMI 23.8
[2017-09-25] MEDS ORDERED: Docusate 100 MG CAP PO PRN (02:19)
--- NOTE | 2017-09-25 04:27 | PDOC.EVN ---
Event Note - Event Note Event Note: Date/Time: 09/25/17 0426 I personally evaluated the patient and discussed the management with Dr. Delgado. I agree with the History, Examination, Assessment and Plan. See H&P for details.
[2017-09-25] MEDS: methylPREDNISolone Sod Succ/PF 125 MG/2 ML VIAL IVP SCH ×4 (05:12→23:58)
[2017-09-25] MEDS: Sodium Chloride 0.9% 1,000 ML IV SCH ×2 (05:46→16:02)
[2017-09-25 06:18] LABS: #Lymphocytes 0.4 thou/uL (1.20-3.40); #Neutrophils 2.2 thou/uL (1.40-6.50); %Basophils 0.9 % (0.0-1.0); %Eosinophils 0.5 % (0.0-10.0); %Monocytes 1.5 % (0.0-10.0); %Neutrophils 83.2 % (42.0-75.0); Hemoglobin 14.9 g/dL (14.0-18.0); Mean Corpuscular HGB CONC 33.4 g/dL (32.0-36.0); Mean Corpuscular Hemoglobin 33.2 pg (27.0-31.0); Mean Corpuscular Volume 99.4 fL (78.0-98.0); Mean Platelet Volume 8.2 fL (7.4-10.4); Platelet Count 198 thou/uL (130-400); RBC Distribution Width 11.3 % (11.5-14.5); Red Blood Cell (RBC) Count 4.49 mill/uL (4.70-6.10); White Blood Cell (WBC) Count 2.6 thou/uL (4.8-10.8)
[2017-09-25 06:42] LABS: ALT (SGPT) 104 U/L (8-55); AST (SGOT) 108 U/L (5-34); Albumin 4.3 g/dL (3.5-5.0); Alkaline Phosphatase 125 U/L (40-150); Anion Gap 18 mmol/L (10-20); BUN (Urea Nitrogen) 6 mg/dL (8.4-25.7); Bilirubin, Total 0.5 mg/dL (0.2-1.2); Calc. Creatinine Clearance 104 mL/min (70-130); Calcium 9.6 mg/dL (7.8-10.44); Carbon Dioxide 20 mmol/L (22-29); Chloride 98 mmol/L (98-107); Estimated GFR-MDRD 85; Glucose 221 mg/dL (70-105); Potassium 4.4 mmol/L (3.5-5.1); Protein, Total 7.3 g/dL (6.0-8.3); Sodium 132 mmol/L (136-145)
[2017-09-25] MEDS: Mometasone 100 MCG HFA INHALER INH SCH ×2 (07:11→19:43)
[2017-09-25] MEDS ORDERED: predniSONE 20 MG TAB PO SCH (08:00)
[2017-09-25] MEDS: Amlodipine 10 MG TAB PO SCH (09:42)
[2017-09-25] MEDS: Folic Acid 1 MG TAB PO SCH (09:43)
[2017-09-25] MEDS: Azithromycin 250 MG TAB PO SCH (09:43)
[2017-09-25] MEDS: Cyanocobalamin (Vitamin B-12) 1,000 MCG TAB PO SCH (09:43)
[2017-09-25] MEDS: Famotidine 20 MG TAB PO SCH ×2 (09:44→19:53)
[2017-09-25] MEDS: Enoxaparin Sodium 40 MG/0.4 ML SYRINGE SC SCH (09:44)
[2017-09-25] MEDS ORDERED: Nicotine 14 MG PATCH TD PRN (11:41)
[2017-09-25 16:39] LABS: Osmolality, Urine 147 mOsm/kg (300-900)
[2017-09-25 16:40] LABS: Sodium, Urine Less than 20 mmol/L (Not Available)
[2017-09-25] MEDS: guaiFENesin/DM ER PO SCH (19:53)
[2017-09-26] MEDS: Sodium Chloride 0.9% 1,000 ML IV SCH (02:54)
[2017-09-26 05:09] LABS: #Lymphocytes 0.3 thou/uL (1.20-3.40); #Monocytes 0.1 thou/uL (0.11-0.59); #Neutrophils 4.5 thou/uL (1.40-6.50); %Basophils 0.1 % (0.0-1.0); %Eosinophils 0.4 % (0.0-10.0); %Lymphocytes 6.8 % (21.0-51.0); %Monocytes 2.7 % (0.0-10.0); Hemoglobin 14.2 g/dL (14.0-18.0); Mean Corpuscular HGB CONC 33.7 g/dL (32.0-36.0); Mean Corpuscular Hemoglobin 33.9 pg (27.0-31.0); Platelet Count 203 thou/uL (130-400); RBC Distribution Width 11.3 % (11.5-14.5)
[2017-09-26 05:32] LABS: ALT (SGPT) 75 U/L (8-55); AST (SGOT) 51 U/L (5-34); Albumin 3.9 g/dL (3.5-5.0); Alkaline Phosphatase 96 U/L (40-150); Anion Gap 13 mmol/L (10-20); BUN (Urea Nitrogen) 8 mg/dL (8.4-25.7); Bilirubin, Total 0.6 mg/dL (0.2-1.2); Calc. Creatinine Clearance 128 mL/min (70-130); Calcium 8.9 mg/dL (7.8-10.44); Carbon Dioxide 24 mmol/L (22-29); Chloride 100 mmol/L (98-107); Estimated GFR-MDRD Greater than 90; Globulin 2.5 g/dL (2.4-3.5); Glucose 174 mg/dL (70-105); Potassium 3.5 mmol/L (3.5-5.1); Protein, Total 6.4 g/dL (6.0-8.3); Sodium 133 mmol/L (136-145)
--- NOTE | 2017-09-26 06:48 | PDOC.FM ---
- Subjective Subjective: Mr. Milian is feeling slightly improved this morning but not back to his baseline. He feels he is coughing up more this morning. It is still white and thick but seems thicker today. He denies feeling feverish or poor appetite. He states that while at work he wears a damp rag or thick paper mask but does not have a respirator. He also lives with his daughters that smoke regularly around him. He tries to encourage them to only smoke outside but states they 'follow' him outside and will smoke right next to him. The house is full of clothes that smell like smoke. - Objective MAR Reviewed: Yes Vital Signs & Weight: Vital Signs (12 hours) Temp Pulse Resp BP Pulse Ox 09/26/17 03:47 97.8 F 93 16 151/89 H 95 09/25/17 23:03 100 16 09/25/17 20:00 99.0 F 97 16 144/86 H 93 L 09/25/17 19:42 104 H 20 Weight Weight 84.64 kg I&O: 09/24/17 09/25/17 09/26/17 06:59 06:59 06:59 Intake Total 1700 Output Total 900 1800 Balance -900 -100 Result Diagrams: 09/26/17 04:44 09/26/17 04:44 Radiology Reviewed by me: Yes <Kristel Gaines E - Last Filed: 09/26/17 10:59> - Objective Vital Signs & Weight: Vital Signs (12 hours) Temp Pulse Resp BP Pulse Ox 09/26/17 07:50 98.7 F 99 19 94 L 09/26/17 07:00 98.7 F 99 19 140/76 94 L 09/26/17 06:50 94 16 96 09/26/17 06:49 94 16 96 09/26/17 03:47 97.8 F 93 16 151/89 H 95 Weight Weight 84.64 kg I&O: 09/25/17 09/26/17 09/27/17 06:59 06:59 06:59 Intake Total 1700 Output Total 900 1800 Balance -900 -100 Result Diagrams: 09/26/17 04:44 09/26/17 04:44 <Gil Dozier - Last Filed: 09/26/17 11:15> Phys Exam - Physical Examination Constitutional: NAD HEENT: moist MMs, sclera anicteric Neck: supple expiratory wheezing BL and inspiratory on RLL Cardiovascular: RRR, no significant murmur Gastrointestinal: soft, non-tender, no distention, positive bowel sounds Musculoskeletal: no edema Neurological: non-focal, moves all 4 limbs Psychiatric: normal affect, A&O x 3 Skin: normal turgor <Kristel Gaines - Last Filed: 09/26/17 10:59> Dx/Plan (1) Acute on chronic respiratory failure with hypoxia Code(s): J96.21 - ACUTE AND CHRONIC RESPIRATORY FAILURE WITH HYPOXIA Status: Acute (2) Eosinophilia Code(s): D72.1 - EOSINOPHILIA Status: Acute (3) COPD exacerbation Code(s): J44.1 - CHRONIC OBSTRUCTIVE PULMONARY DISEASE W (ACUTE) EXACERBATION Status: Acute (4) Hyponatremia Code(s): E87.1 - HYPO-OSMOLALITY AND HYPONATREMIA Status: Acute (5) Abnormal LFTs Code(s): R79.89 - OTHER SPECIFIED ABNORMAL FINDINGS OF BLOOD CHEMISTRY Status : Chronic (6) Hypertension Code(s): I10 - ESSENTIAL (PRIMARY) HYPERTENSION Status: Chronic QualifierTitle: Hypertension type: essential hypertension Qualified Code( s): I10 - Essential (primary) hypertension (7) Tobacco abuse Code(s): Z72.0 - TOBACCO USE Status: Chronic - Plan Plan: 57 yo M here with acute hypoxic respiratory failure 2/2 COPD exacerbation Acute Hypoxic Respiratory Failure 2/2 COPD exacerbation - 20+ pack year smoking history (1 pack per week) - has never had official PFT's for diagnosis. Emphysema and pleural scarring on CXR and diffuse wheezing on exam. - duonebs, steroids, azithromycin - ICS, discussed with CM and are seeking low cost inhaler option for outpatient - CM assistance for funding - consider daily antihistamine as he stated he has some environmental triggers - has seen Dr. Cordon earlier admission and OP f/u should be arranged if possible - stressed importance of minimizing/eliminating smoke exposure and recommended respirator (showed $25 option at [employer]) while working - Mucinex DM Eosinophilia - fluctuates per chart review - resolved - could be associated with allergic cause, asthma, or toxic exposure such as paint Hyponatremia likely 2/2 beer potomania - slowly improving - patient desires to d/c alcohol intake, see below - continue to monitor Alcohol dependence - patient interested in discontinuing - started on librium taper HTN - home meds - slightly elevated and additional agent may be considered Elevated LFTs - elevated from prior admissions, no abd pain at this time - recent hepatitis studies negative - likely 2/2 alcohol use - consider RUQ u/s which could be done outpatient - continuing to downtrend this hospitalization VTE Ppx: Ankush Will transfer to Medical today, stable on tele monitoring. Code Status: Full <Kristel Gaines - Last Filed: 09/26/17 10:59> Attending Addendum - Attending Addendum Date/Time: 09/26/17 1115 I personally evaluated the patient and discussed the management with Dr. Gaines. I agree with the History, Examination, Assessment and Plan documented above with any addition or exceptions noted below. Patient overall feeling somewhat improved, though does have worsening of his productive cough. This is likely related to improved air movement. Continue nebs , PO steroids, inhaled steroid, and supportive care. Encourage ambulation. Will try to get his cough under control. 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 Anticipate discharge tomorrow if doing well. <Gil Dozier - Last Filed: 09/26/17 11:15>
[2017-09-26] MEDS: Mometasone 100 MCG HFA INHALER INH SCH ×2 (06:49→18:13)
[2017-09-26] MEDS: guaiFENesin/DM ER PO SCH ×2 (08:33→20:45)
[2017-09-26] MEDS: Azithromycin 250 MG TAB PO SCH (08:33)
[2017-09-26] MEDS: predniSONE 20 MG TAB PO SCH (08:33)
[2017-09-26] MEDS: Folic Acid 1 MG TAB PO SCH (08:34)
[2017-09-26] MEDS: Famotidine 20 MG TAB PO SCH ×2 (08:34→20:44)
[2017-09-26] MEDS: Amlodipine 10 MG TAB PO SCH (08:34)
[2017-09-26] MEDS: Cyanocobalamin (Vitamin B-12) 1,000 MCG TAB PO SCH (08:34)
[2017-09-26] MEDS: Enoxaparin Sodium 40 MG/0.4 ML SYRINGE SC SCH (08:35)
[2017-09-27 05:12] LABS: #Lymphocytes 1.1 thou/uL (1.20-3.40); #Monocytes 0.9 thou/uL (0.11-0.59); #Neutrophils 5.7 thou/uL (1.40-6.50); %Basophils 0.1 % (0.0-1.0); %Lymphocytes 14.6 % (21.0-51.0); %Neutrophils 73.3 % (42.0-75.0); Hemoglobin 14.2 g/dL (14.0-18.0); Mean Corpuscular HGB CONC 34.1 g/dL (32.0-36.0); Mean Corpuscular Hemoglobin 33.7 pg (27.0-31.0); Mean Corpuscular Volume 98.8 fL (78.0-98.0); Mean Platelet Volume 7.5 fL (7.4-10.4); Platelet Count 213 thou/uL (130-400); RBC Distribution Width 11.3 % (11.5-14.5); Red Blood Cell (RBC) Count 4.21 mill/uL (4.70-6.10); White Blood Cell (WBC) Count 7.7 thou/uL (4.8-10.8)
[2017-09-27 05:52] LABS: ALT (SGPT) 98 U/L (8-55); AST (SGOT) 106 U/L (5-34); Albumin 3.7 g/dL (3.5-5.0); Alkaline Phosphatase 83 U/L (40-150); Anion Gap 11 mmol/L (10-20); BUN (Urea Nitrogen) 12 mg/dL (8.4-25.7); Bilirubin, Total 0.6 mg/dL (0.2-1.2); Calc. Creatinine Clearance 135 mL/min (70-130); Carbon Dioxide 27 mmol/L (22-29); Chloride 101 mmol/L (98-107); Estimated GFR-MDRD Greater than 90; Globulin 2.3 g/dL (2.4-3.5); Glucose 101 mg/dL (70-105); Potassium 3.3 mmol/L (3.5-5.1); Sodium 136 mmol/L (136-145)
--- NOTE | 2017-09-27 07:54 | PDOC.FM ---
- Subjective Subjective: Pt slept well overnight. Cough still persistent but no longer productive. Afebrile. Breathing more comfortably. No other complaints. Pt hoping for d/c home. - Objective MAR Reviewed: Yes Vital Signs & Weight: Vital Signs (12 hours) Temp Pulse Resp BP Pulse Ox 09/27/17 04:00 97.9 F 89 18 136/80 97 09/27/17 03:21 90 16 97 09/27/17 00:00 97.8 F 115 H 18 120/75 97 09/26/17 22:05 87 16 98 09/26/17 20:00 97.5 F L 83 20 154/85 H 98 Weight Weight 84.64 kg I&O: 09/26/17 09/27/17 09/28/17 06:59 06:59 06:59 Intake Total 1700 2240 Output Total 1800 Balance -100 2240 Result Diagrams: 09/27/17 04:53 09/27/17 04:53 Radiology Reviewed by me: Yes Phys Exam - Physical Examination Constitutional: NAD HEENT: PERRLA, moist MMs Neck: supple Respiratory: no rales, no rhonchi, wheezing present Bilateral prolonged expiratory phase with wheezing, good air movement Cardiovascular: RRR, no significant murmur Gastrointestinal: soft, non-tender, positive bowel sounds Musculoskeletal: no edema, pulses present Neurological: non-focal, moves all 4 limbs Psychiatric: normal affect, A&O x 3 Skin: no rash, cap refill <2 seconds Dx/Plan (1) Acute and chronic respiratory failure Code(s): J96.20 - ACUTE AND CHR RESP FAILURE, UNSP W HYPOXIA OR HYPERCAPNIA Status: Acute Plan: No documented hypoxia in ED although put on oxygen and only 92% (1L). No O2 use currently required. Pt feels improved although still has diffuse wheezing. (2) COPD exacerbation Code(s): J44.1 - CHRONIC OBSTRUCTIVE PULMONARY DISEASE W (ACUTE) EXACERBATION Status: Acute Plan: Question of dx due to no PFTs or outpt workup. [facility] with limited access to meds or workups. 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 States has this similar problem every summer when humidity increases. Has taken symbicort in past without much relief per his recollection. CM obtained devin coupon for free inhaler. Will send with him on d/c. If not improving, instructed to f/u with [facility] to consider treating allergic etiology. Plan for d/c home today to continue steroids and azithromycin. (3) Eosinophilia Code(s): D72.1 - EOSINOPHILIA Status: Acute Plan: See above. Potentially allergic cause. Recommended using mask or respirator with work and see if this improves symptoms. (4) Hyponatremia Code(s): E87.1 - HYPO-OSMOLALITY AND HYPONATREMIA Status: Resolved Plan: Resolved with fluids. Likely pre-renal. (5) Abnormal LFTs Code(s): R79.89 - OTHER SPECIFIED ABNORMAL FINDINGS OF BLOOD CHEMISTRY Status : Chronic Plan: Likely 2/2 alcohol abuse. Needs workup outpt. Recent hepatitis studies negative. Could consider RUQ U/S outpt. (6) Alcohol abuse Code(s): F10.10 - ALCOHOL ABUSE, UNCOMPLICATED Status: Chronic Plan: Pt wanting to try benzo taper. Started on librium. (7) Tobacco abuse Code(s): Z72.0 - TOBACCO USE Status: Chronic Plan: Counseled
[2017-09-27] MEDS: Mometasone 100 MCG HFA INHALER INH SCH (08:10)
[2017-09-27] MEDS: Cyanocobalamin (Vitamin B-12) 1,000 MCG TAB PO SCH (08:44)
[2017-09-27] MEDS: Folic Acid 1 MG TAB PO SCH (08:45)
[2017-09-27] MEDS: Famotidine 20 MG TAB PO SCH (08:45)
[2017-09-27] MEDS: predniSONE 20 MG TAB PO SCH (08:45)
[2017-09-27] MEDS: Azithromycin 250 MG TAB PO SCH (08:45)
[2017-09-27] MEDS: Enoxaparin Sodium 40 MG/0.4 ML SYRINGE SC SCH (08:46)
[2017-09-27] MEDS: Amlodipine 10 MG TAB PO SCH (08:46)
[2017-09-27 08:53] VITALS: BP 138/83; TEMP 98.6
[2017-09-27] MEDS: guaiFENesin/DM ER PO SCH (09:24)
--- NOTE | 2017-09-28 18:21 | ADD-PRG ---
DATE OF SERVICE: 09/27/2017 ADDENDUM Please see note from Dr. Saavedra for which I agree. The patient was seen and evaluated and examin ed with the residents and sounds like respiratory status is improved as far as his COPD goes, less wh eezing and it feels better and his electrolytes are better as well and should be able to be discharge d. It sounds like we have him set up for Dulera through case management, he should be able to get a free Dulera and has home rescue inhalers to use, so should be able to discharge him today. Here also going to have him on Librium to prevent alcohol withdrawal type issues for him drinking right now. We will follow up with [facility].
--- NOTE | 2017-09-29 00:58 | DIS-2 ---
DATE OF ADMISSION: 09/25/2017 DATE OF DISCHARGE: 09/27/2017 RESIDENT: Fito Saavedra MD ADMITTING ATTENDING: Valentino Lou MD DISCHARGE ATTENDING: Moe Collier MD CONSULTATION: None. PROCEDURE: Chest x-ray: Chronic pulmonary and pleural changes at the right lower lung including pleural thickening and pulmonary scarring. Emphysema also noted. PRIMARY DIAGNOSIS: Acute on chronic respiratory failure. SECONDARY DIAGNOSES: 1. Chronic obstructive pulmonary disease exacerbation. 2. Eosinophilia. 3. Hyponatremia, resolved. 4. Abnormal liver function tests. 5. Alcohol abuse. 6. Tobacco abuse. DISCHARGE MEDICATIONS: 1. Azithromycin 250 mg daily for 2 days. 2. Prednisone 40 mg daily for 2 days. 3. Chlordiazepoxide 10 mg b.i.d. for one day, then daily for 3 days. 4. Dulera 100 mcg/5 mcg inhaler, 2 puffs inhaled b.i.d. 5. Thiamine 100 mg daily. 5. Folic acid 1 mg daily. 6. Vitamin B12, 1000 mcg daily. 7. Amlodipine 10 mg daily. 8. Albuterol inhaler 2 puffs q.4 hours p.r.n. for wheezing and shortness of breath. HISTORY OF PRESENT ILLNESS AND HOSPITAL COURSE: The patient is a 57-year-old male with past medical history of questionable COPD and hypertension, who presented with a 3-day history of shortness of breath and wheezing. He is uninsured, which limits his ability to receive care and evaluations. He is a patient at [facility] currently. He has never had PFTs to officially diagnose COPD and has been unable to fill majority of medications prescribed to him following hospital discharges for similar issues. He presented with tachypnea and was placed on oxygen in the ED. His main complaints were shortness of breath, cough, and wheezing. Denied fever or chills. The patient was admitted for treatment. 1. Acute on chronic respiratory failure. No documented hypoxia in the ED, although he was placed on oxygen immediately and was 92% on 1 liter. Following steroids and breathing treatments, the patient no longer required oxygen. His dyspnea was much improved with increased air movement diffusely by the end of hospitalization. 2. COPD exacerbation, question of diagnosis due to no PFTs or outpatient workup due to limited access to medications or care secondary to financial status. 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 He endorses similar issues every summer when humidity increases. Apparently, he was given Symbicort in the past without much relief per his recollection. Case management obtained a Dulera coupon for one free inhaler. He will be discharged with Dulera as well as 2 days of oral steroids and azithromycin. As there may be an allergic component with the patient's eosinophilia, he was instructed to follow up with [facility] to consider treating this etiology if Dulera is not beneficial. The patient was stable for discharge. 3. Eosinophilia. Please see above. Recommended using a mask or respirator with work to see if this improves symptoms. 4. Hyponatremia. Initially 127. Resolved with fluids and was likely prerenal in origin. 5. Abnormal liver function tests, likely secondary to alcohol abuse. Recent hepatitis studies were negative. Consider right upper quadrant ultrasound as outpatient. 6. Alcohol abuse. The patient has a heavy drinking history. He was insistent on wanting to stop drinking alcohol. Therefore, a benzodiazepine taper was started in the hospital. He will be continued on Librium for the next 4 days. The patient was counseled not to drink and use Librium concurrently. 7. Tobacco abuse. The patient was counseled on cessation. He states he is no longer smoking. DISPOSITION: Stable. DISCHARGE INSTRUCTIONS: 1. Location: Home. 2. Diet: Regular. 3. Activity: As tolerated. 4. Follow up with [facility] in 3-5 days. ANGELA
== END 2017-09-27 11:16 | disposition home or self-care (01) | DRG 189 ==
LOC: ERS 19:26 → 2NO 09-25 00:30 → ONC 09-26 12:34
PROVIDERS: ADMIT Family Medicine; ATTEND Family Medicine
DX: J96.21 Acute and chronic respiratory failure with hypoxia (principal); J44.1 Chronic obstructive pulmonary disease with (acute) exacerbation; E87.1 Hypo-osmolality and hyponatremia; I10 Essential (primary) hypertension; D72.1 Eosinophilia; F10.10 Alcohol abuse, uncomplicated; R79.89 Other specified abnormal findings of blood chemistry; E87.8 Other disorders of electrolyte and fluid balance, not elsewhere classified; Z87.891 Personal history of nicotine dependence
CPT/HCPCS: 36415; 71045; 80053; 82553; 83930; 83935; 84300; 84484; 85025; 93005; 94640; 96374; 99406; J1650; J2930; J7506; J7620

== ENCOUNTER 2017-10-17 01:58 | Inpatient (IN) | payer SELFPAY ==
[2017-10-17 02:27] LABS: #Basophils 0.1 thou/uL (0.0-0.2); #Eosinphils 0.9 thou/uL (0.0-0.7); #Lymphocytes 1.9 thou/uL (1.20-3.40); #Monocytes 0.5 thou/uL (0.11-0.59); #Neutrophils 1.4 thou/uL (1.40-6.50); %Basophils 1.6 % (0.0-1.0); %Eosinophils 19.3 % (0.0-10.0); %Lymphocytes 39.7 % (21.0-51.0); %Monocytes 9.8 % (0.0-10.0); %Neutrophils 29.6 % (42.0-75.0); Hemoglobin 14.4 g/dL (14.0-18.0); Mean Corpuscular HGB CONC 34.5 g/dL (32.0-36.0); Mean Corpuscular Hemoglobin 33.8 pg (27.0-31.0); Mean Corpuscular Volume 97.8 fL (78.0-98.0); Mean Platelet Volume 7.6 fL (7.4-10.4); Platelet Count 208 thou/uL (130-400); RBC Distribution Width 11.2 % (11.5-14.5); Red Blood Cell (RBC) Count 4.28 mill/uL (4.70-6.10); White Blood Cell (WBC) Count 4.8 thou/uL (4.8-10.8)
[2017-10-17 02:49] LABS: ALT (SGPT) 97 U/L (8-55); AST (SGOT) 145 U/L (5-34); Albumin 4.5 g/dL (3.5-5.0); Alkaline Phosphatase 115 U/L (40-150); Anion Gap 16 mmol/L (10-20); BUN (Urea Nitrogen) 5 mg/dL (8.4-25.7); Bilirubin, Total 0.5 mg/dL (0.2-1.2); CK (CPK) 94 U/L (30-200); Calc. Creatinine Clearance 0 mL/min (70-130); Calcium 9.7 mg/dL (7.8-10.44); Carbon Dioxide 22 mmol/L (22-29); Chloride 102 mmol/L (98-107); Estimated GFR-MDRD Greater than 90; Globulin 2.7 g/dL (2.4-3.5); Glucose 102 mg/dL (70-105); Potassium 4.2 mmol/L (3.5-5.1); Protein, Total 7.2 g/dL (6.0-8.3); Sodium 136 mmol/L (136-145)
[2017-10-17 02:54] LABS: CKMB 1.6 ng/mL (0-6.6); Troponin I Less than 0.010 ng/mL (< 0.028)
[2017-10-17 04:56] VITALS: BMI 28.0
[2017-10-17] MEDS: methylPREDNISolone Sod Succ/PF 125 MG/2 ML VIAL IVP SCH ×2 (08:16→13:51)
--- NOTE | 2017-10-17 08:46 | RAD ---
AP VIEW CHEST: INDICATIONS: Shortness of breath. COPD. COMPARISON: 09/24/2017 FINDINGS: There is increased air space opacity within the right infrahilar region. The left lung is clear. Th ere is stable pleural parenchymal scarring involving the right lung base. The osseous structures are similar. IMPRESSION: Increased air space opacity in the right lower lobe, suspicious for pneumonia. POS: [facility]
[2017-10-17] MEDS ORDERED: Ondansetron ODT 4 MG TAB PO PRN (12:29)
[2017-10-17] MEDS ORDERED: Albuterol Sulfate 2.5 mg/3 ml Neb NEB PRN (12:29)
[2017-10-17] MEDS ORDERED: Enoxaparin Sodium 40 MG/0.4 ML SYRINGE SC SCH (12:29)
[2017-10-17] MEDS ORDERED: Ondansetron HCl/PF 4 MG/2 ML Vial IVP PRN (12:29)
[2017-10-17] MEDS ORDERED: HYDROcodone/Acetaminophen 5/325 mg Tablet PO PRN (12:29)
[2017-10-17] MEDS ORDERED: Acetaminophen 325 MG TAB PO PRN (12:29)
[2017-10-17] MEDS ORDERED: Diazepam 5 MG TAB PO PRN (12:32)
[2017-10-17] MEDS ORDERED: Diazepam 5 MG TAB PO SCH (12:45)
[2017-10-17] MEDS ORDERED: Thiamine HCl 200 MG/2 ML VIAL IM SCH (12:45)
[2017-10-17] MEDS: Famotidine 20 MG TAB PO SCH (21:08)
[2017-10-17] MEDS: guaiFENesin ER 600 MG TAB PO SCH (21:09)
[2017-10-17] MEDS: HYDROcodone/Acetaminophen 5/325 mg Tablet PO PRN (21:50)
[2017-10-18] MEDS ORDERED: Diazepam 5 MG TAB PO PRN (04:00)
[2017-10-18 05:04] LABS: #Lymphocytes 0.5 thou/uL (1.20-3.40); #Monocytes 0.2 thou/uL (0.11-0.59); #Neutrophils 3.8 thou/uL (1.40-6.50); %Eosinophils 0.1 % (0.0-10.0); %Lymphocytes 10.3 % (21.0-51.0); %Neutrophils 84.6 % (42.0-75.0); Hemoglobin 14.4 g/dL (14.0-18.0); Mean Corpuscular Hemoglobin 33.5 pg (27.0-31.0); Mean Corpuscular Volume 98.4 fL (78.0-98.0); Mean Platelet Volume 8.1 fL (7.4-10.4); Platelet Count 192 thou/uL (130-400); RBC Distribution Width 11.2 % (11.5-14.5); Red Blood Cell (RBC) Count 4.31 mill/uL (4.70-6.10); White Blood Cell (WBC) Count 4.5 thou/uL (4.8-10.8)
[2017-10-18 05:26] LABS: ALT (SGPT) 78 U/L (8-55); AST (SGOT) 57 U/L (5-34); Albumin 4.4 g/dL (3.5-5.0); Alkaline Phosphatase 103 U/L (40-150); Anion Gap 14 mmol/L (10-20); BUN (Urea Nitrogen) 9 mg/dL (8.4-25.7); Bilirubin, Total 0.6 mg/dL (0.2-1.2); Calc. Creatinine Clearance 103 mL/min (70-130); Calcium 9.1 mg/dL (7.8-10.44); Carbon Dioxide 26 mmol/L (22-29); Chloride 97 mmol/L (98-107); Estimated GFR-MDRD 80; Globulin 2.6 g/dL (2.4-3.5); Glucose 189 mg/dL (70-105); Magnesium 2.1 mg/dL (1.6-2.6); Potassium 3.8 mmol/L (3.5-5.1); Sodium 133 mmol/L (136-145)
[2017-10-18 05:43] LABS: HBSAB Concentration 0.39 mIU/mL; HBSAg Index 0.15 S/CO (0-0.99); Hep B Core Total Ab Non-Reactive (NonReactive); Hep B Core Total Index 0.05 S/CO (0-0.79); Hep B Surf AB Non-Reactive (NonReactive); Hep B Surf Ag Non-Reactive S/CO (NonReactive); Hep C IgG Ab Non-Reactive (NonReactive); Hep C Index 0.05 S/CO (0-0.79)
[2017-10-18] MEDS: HYDROcodone/Acetaminophen 5/325 mg Tablet PO PRN ×2 (06:00→20:20)
[2017-10-18] MEDS: Multivitamin W/ Minerals 1 TAB PO SCH (09:31)
[2017-10-18] MEDS: Cyanocobalamin (Vitamin B-12) 1,000 MCG TAB PO SCH (09:31)
[2017-10-18] MEDS: Folic Acid 1 MG TAB PO SCH (09:31)
[2017-10-18] MEDS: Famotidine 20 MG TAB PO SCH ×2 (09:31→20:15)
[2017-10-18] MEDS: Enoxaparin Sodium 40 MG/0.4 ML SYRINGE SC SCH (09:32)
[2017-10-18] MEDS: Magnesium Oxide 400 MG TAB PO SCH (09:32)
[2017-10-18] MEDS: guaiFENesin ER 600 MG TAB PO SCH ×2 (09:32→20:15)
[2017-10-18] MEDS ORDERED: traMADol HCl 50 MG TAB PO PRN ×2 (13:32)
--- NOTE | 2017-10-18 13:40 | PDOC.PN ---
- Subjective Encounter Start Date: 10/18/17 Encounter Start Time: 10:25 follow up for RLL CAP and AECOPD Pt feeling better, ambulating around the chau. responding well to steroids, EZPAP nebs and abx. No F/C, no N/V/D/c, no CP, no acute events Pt ASE regularly 3. no other sings of W/D all systems reviewed and neg x as above - Objective Resuscitation Status: Resuscitation Status FULL:Full Resuscitation MAR Reviewed: Yes Vital Signs & Weight: Vital Signs (12 hours) Temp Pulse Resp BP BP Pulse Ox 10/18/17 12:00 142/80 H 10/18/17 11:25 98 10/18/17 11:16 97.8 F 99 16 142/80 H 10/18/17 10:47 9 L 10/18/17 08:00 98 F 103 H 16 119/76 97 10/18/17 07:48 98 F 103 H 16 119/76 97 10/18/17 07:09 98 10/18/17 06:37 98 10/18/17 06:34 98 10/18/17 04:00 97.9 F 81 18 130/84 97 10/18/17 03:21 96 Weight Weight 189 lb 9.561 oz I&O: 10/17/17 10/18/17 10/19/17 06:59 06:59 06:59 Intake Total 1000 Balance 1000 Result Diagrams: 10/18/17 04:26 10/18/17 04:26 Radiology Reviewed by me: Yes EKG Reviewed by me: Yes Phys Exam - Physical Examination Constitutional: NAD HEENT: PERRLA, moist MMs, sclera anicteric, oral pharynx no lesions Neck: no nodes, no JVD, supple, full ROM Respiratory: no rales inspiratory and exp wheeze,s prolonged expiration, due for neb Cardiovascular: RRR, no significant murmur, no rub Gastrointestinal: soft, non-tender, no distention, positive bowel sounds Musculoskeletal: pulses present, edema present Neurological: non-focal, normal sensation, moves all 4 limbs Lymphatic: no nodes Psychiatric: normal affect, A&O x 3 Skin: no rash, normal turgor, cap refill <2 seconds Dx/Plan (1) Right lower lobe pneumonia Code(s): J18.1 - LOBAR PNEUMONIA, UNSPECIFIED ORGANISM Status: Acute Qualifiers: Pneumonia type: due to unspecified organism Qualified Code(s): J18.1 - Lobar pneumonia, unspecified organism (2) CAP (community acquired pneumonia) Code(s): J18.9 - PNEUMONIA, UNSPECIFIED ORGANISM Status: Acute Qualifiers: Laterality: right Lung location: lower lobe of lung Qualified Code(s): J18.1 - Lobar pneumonia, unspecified organism (3) Acute exacerbation of chronic obstructive pulmonary disease (COPD) Code(s): J44.1 - CHRONIC OBSTRUCTIVE PULMONARY DISEASE W (ACUTE) EXACERBATION Status: Acute (4) Tachycardia Code(s): R00.0 - TACHYCARDIA, UNSPECIFIED Status: Acute Comment: Likely from nebs. Will monitor for signs of withdrawal and give a bolus of NS. (5) Abnormal LFTs Code(s): R79.89 - OTHER SPECIFIED ABNORMAL FINDINGS OF BLOOD CHEMISTRY Status : Chronic (6) Alcohol abuse Code(s): F10.10 - ALCOHOL ABUSE, UNCOMPLICATED Status: Chronic Comment: Continue ASE protocol (7) CKD (chronic kidney disease) stage 2, GFR 60-89 ml/min Code(s): N18.2 - CHRONIC KIDNEY DISEASE, STAGE 2 (MILD) Status: Chronic (8) Hypertension Code(s): I10 - ESSENTIAL (PRIMARY) HYPERTENSION Status: Chronic Qualifiers: Hypertension type: essential hypertension Qualified Code(s): I10 - Essential (primary) hypertension Comment: Fairly well controlled. Continue home meds. (9) Tobacco abuse Code(s): Z72.0 - TOBACCO USE Status: Chronic Comment: Counselled on cessation. Declines patch. (10) Hyponatremia Code(s): E87.1 - HYPO-OSMOLALITY AND HYPONATREMIA Status: Resolved Comment: Mild, asymptomatic - Plan cont current plan of care, continue antibiotics, PT/OT, 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
[2017-10-18] MEDS ORDERED: predniSONE 20 MG TAB PO SCH (13:45)
[2017-10-19] MEDS ORDERED: predniSONE 20 MG TAB PO SCH (08:00)
[2017-10-19] MEDS: Folic Acid 1 MG TAB PO SCH (08:09)
[2017-10-19] MEDS: Multivitamin W/ Minerals 1 TAB PO SCH (08:09)
[2017-10-19] MEDS: Magnesium Oxide 400 MG TAB PO SCH (08:09)
[2017-10-19] MEDS: Cyanocobalamin (Vitamin B-12) 1,000 MCG TAB PO SCH (08:09)
[2017-10-19] MEDS: Famotidine 20 MG TAB PO SCH (08:10)
[2017-10-19] MEDS: guaiFENesin ER 600 MG TAB PO SCH (08:12)
[2017-10-19] MEDS: Enoxaparin Sodium 40 MG/0.4 ML SYRINGE SC SCH ×2 (08:12→08:22)
[2017-10-19 11:25] VITALS: BP 137/87; TEMP 98.2
--- NOTE | 2017-10-19 21:53 | DIS ---
DATE OF ADMISSION: 10/17/2017 DATE OF DISCHARGE: 10/19/2017 This patient was admitted by Dr. Enoc Kearns on 10/17/2017. There is no H&P available for me at this time to review. DISCHARGE DIAGNOSES: 1. Community-acquired pneumonia. 2. Acute chronic obstructive pulmonary disease exacerbation. 3. history of chronic alcohol abuse, no current use. 4. Chronic kidney disease stage 2. 5. Hypertension. 6. Tobacco abuse. 7. Mild asymptomatic hyponatremia. DISCHARGE MEDICATIONS: New medicines: DuoNebs as needed q.i.d. p.r.n., levofloxacin 500 mg daily fo r 7 days, Medrol Dosepak. Resume home medications as follows: Albuterol inhaler as needed, amlodipi ne 10 mg daily, B12 1000 mcg daily, folic acid 1 mg daily, and Dulera 2 puffs b.i.d. CONSULTATIONS: None. PROCEDURES: Chest x-ray upon presentation, which showed right lower lobe pneumonia. HISTORY OF PRESENTING ILLNESS: History of presenting illness is derived from the ER record as there is no H&P available even after 2 days of admission. The patient presented to the ER with complaints of shortness of breath. He has history of COPD. His initial oxygen saturation was 94%-95% with some wheezing per the EMS. He received nebulizers, Solu-Medrol, magnesium, as well as antibiotics in the emergency room. His workup in the emergency room showed possible right lower lobe pneumonia. He wa s admitted on the medical floor for further workup. HOSPITAL COURSE: The patient had significant improvement quite quickly. He was started on IV levofl oxacin and nebulizers with significant improvement. By the time of discharge, he was on room air, wa lking around in the hallways without any dyspnea or hypoxia. His wheezing has improved and he is juancarlos k to his baseline. He was seen and examined and discharge plan was discussed with the patient and his brother present in the room. The patient will be discharged home with the above medications. He will follow up with h is primary care physician as soon as possible. He is encouraged to fill up on this prescription of Q brianna for which he has a voucher for. For the rest of the medication, he has Glanse card which he uses and his medications are covered. He was seen and examined prior to discharge. PHYSICAL EXAMINATION: This morning: VITAL SIGNS: Temperature 98.2, pulse of 79, respirations 16, saturating 98% on room air, blood press ure 137/87, in no acute distress, awake, alert, oriented x3. CHEST: Clear to auscultation without any significant wheezing. He has decreased breaths on the righ t lower lobe without any wheezing, rales or rhonchi. Rate and rhythm is regular without any murmur, rubs or gallops. LABORATORY DATA: CBC is unremarkable. Serum chemistries unremarkable except for AST at 57, ALT at 7 8, which seems to be chronic. His hepatitis B and C serologies are negative. PRIMARY CARE PHYSICIAN: [facility].
== END 2017-10-19 14:20 | disposition home or self-care (01) | DRG 194 ==
LOC: ERS 01:58 → OBSVTOIN 04:35 → T4-A 04:35
PROVIDERS: ADMIT Internal Medicine; ATTEND Internal Medicine
DX: J18.9 Pneumonia, unspecified organism (principal); J44.1 Chronic obstructive pulmonary disease with (acute) exacerbation; J44.0 Chronic obstructive pulmonary disease with (acute) lower respiratory infection; E87.1 Hypo-osmolality and hyponatremia; F17.210 Nicotine dependence, cigarettes, uncomplicated; I12.9 Hypertensive chronic kidney disease with stage 1 through stage 4 chronic kidney disease, or unspecified chronic kidney disease; N18.2 Chronic kidney disease, stage 2 (mild); R79.89 Other specified abnormal findings of blood chemistry
CPT/HCPCS: 36415; 71045; 80053; 82550; 82553; 83735; 83880; 84484; 85025; 86704; 86706; 86803; 87340; 93306; 94640; 94760; A4216; J1650; J1956; J2920; J2930; J3411; J3475; J7050; J7506; J7620

== ENCOUNTER 2018-02-17 11:58 | Emergency (ER) | payer SELFPAY ==
[2018-02-17] MEDS ORDERED: methylPREDNISolone Sod Succ/PF 125 MG/2 ML VIAL ONE (12:42)
[2018-02-17 12:54] LABS: #Basophils 0.1 thou/uL (0.0-0.2); #Eosinphils 0.1 thou/uL (0.0-0.7); #Lymphocytes 1.4 thou/uL (1.20-3.40); #Monocytes 0.8 thou/uL (0.11-0.59); #Neutrophils 6.3 thou/uL (1.40-6.50); %Basophils 1.2 % (0.0-1.0); %Eosinophils 1.3 % (0.0-10.0); %Lymphocytes 16.4 % (21.0-51.0); %Monocytes 9.5 % (0.0-10.0); %Neutrophils 71.6 % (42.0-75.0); Hemoglobin 16.3 g/dL (14.0-18.0); Mean Corpuscular HGB CONC 32.8 g/dL (32.0-36.0); Mean Corpuscular Hemoglobin 32.8 pg (27.0-31.0); Mean Platelet Volume 7.7 fL (7.4-10.4); Platelet Count 236 thou/uL (130-400); RBC Distribution Width 11.5 % (11.5-14.5); Red Blood Cell (RBC) Count 4.96 mill/uL (4.70-6.10); White Blood Cell (WBC) Count 8.7 thou/uL (4.8-10.8)
[2018-02-17 13:12] LABS: ALT (SGPT) 119 U/L (8-55); AST (SGOT) 95 U/L (5-34); Albumin 4.4 g/dL (3.5-5.0); Alkaline Phosphatase 104 U/L (40-150); Anion Gap 8 mmol/L (10-20); BUN (Urea Nitrogen) 12 mg/dL (8.4-25.7); CKMB 1.2 ng/mL (0-6.6); Calc. Creatinine Clearance 0 mL/min (70-130); Calcium 9.7 mg/dL (7.8-10.44); Carbon Dioxide 31 mmol/L (22-29); Chloride 100 mmol/L (98-107); Estimated GFR-MDRD 86; Globulin 3.4 g/dL (2.4-3.5); Glucose 114 mg/dL (70-105); Potassium 4.5 mmol/L (3.5-5.1); Protein, Total 7.8 g/dL (6.0-8.3); Sodium 134 mmol/L (136-145); Troponin I Less than 0.010 ng/mL (< 0.028)
--- NOTE | 2018-02-17 13:17 | RAD ---
SINGLE VIEW OF THE CHEST: Comparison: 10-17-17 History: COPD. Cough. Patient felt something pop in the ribs with difficulty breathing. FINDINGS: Single view of the chest shows a normal sized cardiomediastinal silhouette. There appears to be a sma ll right pleural effusion. No pneumothorax is seen. There is no evidence of consolidation. IMPRESSION: Small right pleural effusion. POS: [facility]
[2018-02-17] MEDS ORDERED: Ketorolac Tromethamine 30 MG/ML VIAL ONE (13:59)
--- NOTE | 2018-02-17 15:41 | CT ---
CT OF THE CHEST WITHOUT CONTRAST: COMPARISON: CTA chest 05/06/2017. HISTORY: Shortness of breath that is gradual in onset and left thoracic pain after coughing. TECHNIQUE: Multiple contiguous axial images were obtained in a CT of the chest without contrast. Coronal reform ats were performed. FINDINGS: Round atelectasis is seen in the right lung base. Stable scarring is seen in the right lung base. T here is no evidence of consolidation, mass, or pleural effusion. No acute infiltrates or suspicious pulmonary masses are seen. The heart is normal in size. No hilar or mediastinal lymphadenopathy are seen on this limited noncon trast examination. The visualized subdiaphragmatic structures are unremarkable. Degenerative changes are seen in the sp ine. The chest wall soft tissues are unremarkable. IMPRESSION: Stable right lower lobe scarring without acute intrathoracic abnormality. POS: [facility]
--- NOTE | 2018-02-20 17:05 | EKG ---
Test Reason : SOB Blood Pressure : / mmHG Vent. Rate : 095 BPM Atrial Rate : 095 BPM P-R Int : 152 ms QRS Dur : 076 ms QT Int : 332 ms P-R-T Axes : 096 071 069 degrees QTc Int : 417 ms Normal sinus rhythm Normal ECG Confirmed by CASSANDRA MARION ([id number]), video tape editor HIWOT MURPHY ([id number]) on 02/20/2018 5:04:26 PM Referred By: Confirmed By:CASSANDRA MARION
== END 2018-02-17 15:00 | disposition home or self-care (01) ==
LOC: ERS 11:58
DX: R07.89 Other chest pain (principal); J44.9 Chronic obstructive pulmonary disease, unspecified; I10 Essential (primary) hypertension; F17.210 Nicotine dependence, cigarettes, uncomplicated; Z79.899 Other long term (current) drug therapy
CPT/HCPCS: 71045; 71250; 80053; 82553; 84484; 85025; 93005; 96374; 96375; J1885; J2930; J7620

== ENCOUNTER 2018-03-14 22:54 | Emergency (ER) | payer SELFPAY ==
[2018-03-14] MEDS ORDERED: methylPREDNISolone Sod Succ/PF 125 MG/2 ML VIAL ONE (23:11)
[2018-03-14 23:25] LABS: #Basophils 0.1 thou/uL (0.0-0.2); #Eosinphils 0.3 thou/uL (0.0-0.7); #Lymphocytes 3.9 thou/uL (1.20-3.40); #Monocytes 0.8 thou/uL (0.11-0.59); #Neutrophils 5.9 thou/uL (1.40-6.50); %Basophils 1.1 % (0.0-1.0); %Eosinophils 2.7 % (0.0-10.0); %Lymphocytes 35.2 % (21.0-51.0); %Monocytes 7.1 % (0.0-10.0); %Neutrophils 53.8 % (42.0-75.0); Hemoglobin 15.3 g/dL (14.0-18.0); Mean Corpuscular HGB CONC 35.1 g/dL (32.0-36.0); Mean Corpuscular Hemoglobin 33.8 pg (27.0-31.0); Mean Corpuscular Volume 96.4 fL (78.0-98.0); Mean Platelet Volume 7.6 fL (7.4-10.4); Platelet Count 275 thou/uL (130-400); RBC Distribution Width 11.7 % (11.5-14.5); Red Blood Cell (RBC) Count 4.52 mill/uL (4.70-6.10); White Blood Cell (WBC) Count 10.9 thou/uL (4.8-10.8)
--- NOTE | 2018-03-14 23:30 | RAD ---
PORTABLE AP CHEST X-RAY 03/14/18 HISTORY: Dyspnea. Shortness of breath and generalized weakness. COMPARISON: 02/17/18. FINDINGS: Again noted are areas of scarring in the right mid lung zone at the right lung base with pleural and parenchymal scarring at the right lung base. Left lung is clear. there is mild generalized volume los s of the right hemithorax compared to the left which is also a stable finding. The cardiac silhouette and pulmonary vasculature are within normal limits. There has been no interval change from prior exa m. IMPRESSION: Stable chronic changes right hemithorax. No acute cardiopulmonary process is identified. POS: [facility]
[2018-03-14 23:47] LABS: ALT (SGPT) 84 U/L (8-55); AST (SGOT) 56 U/L (5-34); Albumin 4.4 g/dL (3.5-5.0); Alkaline Phosphatase 117 U/L (40-150); Anion Gap 17 mmol/L (10-20); BUN (Urea Nitrogen) 11 mg/dL (8.4-25.7); Bilirubin, Total 0.4 mg/dL (0.2-1.2); Calc. Creatinine Clearance 0 mL/min (70-130); Calcium 9.4 mg/dL (7.8-10.44); Carbon Dioxide 26 mmol/L (22-29); Chloride 92 mmol/L (98-107); Estimated GFR-MDRD 84; Globulin 3.2 g/dL (2.4-3.5); Glucose 104 mg/dL (70-105); Potassium 3.2 mmol/L (3.5-5.1); Protein, Total 7.6 g/dL (6.0-8.3); Sodium 132 mmol/L (136-145)
--- NOTE | 2018-03-18 15:53 | EKG ---
Test Reason : Blood Pressure : / mmHG Vent. Rate : 094 BPM Atrial Rate : 094 BPM P-R Int : 176 ms QRS Dur : 086 ms QT Int : 354 ms P-R-T Axes : 098 059 063 degrees QTc Int : 442 ms Normal sinus rhythm Normal ECG Confirmed by ERIN PEREZ ([id number]), newspaper editor managing HIWOT MURPHY ([id number]) on 03/18/2018 3:53:03 PM Referred By: Confirmed By:ERIN PEREZ
== END 2018-03-15 01:10 | disposition home or self-care (01) ==
LOC: ERS 22:54
DX: J44.1 Chronic obstructive pulmonary disease with (acute) exacerbation (principal); I10 Essential (primary) hypertension; Z87.891 Personal history of nicotine dependence; Z79.899 Other long term (current) drug therapy
CPT/HCPCS: 36415; 71045; 80053; 84484; 85025; 87804; 93005; 96374; J2930

== ENCOUNTER 2018-03-30 19:52 | Inpatient (IN) | payer SELFPAY ==
[2018-03-30 20:15] LABS: Actual Bicarbonate (HCO3a) 23.8 mEq/L (22-28); Analyzer IN Cardio ER; Base Excess (BEa) 1.4 mEq/L (-2.0 to +3.0); CO2 Tension 31.6 mmHg (35.0-45.0); Calcium, Ionized 1.08 mmol/L (1.12-1.30); Carboxyhemoglobin (COHb) 0.7 gm% (0.0-3.0); Hemoglobin (Hb) 15.1 g/dL (14.0-18.0); O2 Tension (PaO2) 164.3 mmHg (80.0-100.0); Potassium - ABG Lab 2.85 mmol/L (3.70-5.30)
[2018-03-30 20:18] LABS: Puncture Site LBA
[2018-03-30 20:33] LABS: #Basophils 0.1 thou/uL (0.0-0.2); #Eosinphils 0.1 thou/uL (0.0-0.7); #Lymphocytes 2.9 thou/uL (1.20-3.40); #Neutrophils 3.1 thou/uL (1.40-6.50); %Basophils 1.1 % (0.0-1.0); %Eosinophils 1.2 % (0.0-10.0); %Lymphocytes 40.1 % (21.0-51.0); %Monocytes 14.1 % (0.0-10.0); %Neutrophils 43.7 % (42.0-75.0); Hemoglobin 14.7 g/dL (14.0-18.0); Mean Corpuscular HGB CONC 34.9 g/dL (32.0-36.0); Mean Corpuscular Hemoglobin 33.4 pg (27.0-31.0); Mean Corpuscular Volume 95.7 fL (78.0-98.0); Mean Platelet Volume 7.3 fL (7.4-10.4); Platelet Count 285 thou/uL (130-400); Red Blood Cell (RBC) Count 4.41 mill/uL (4.70-6.10); White Blood Cell (WBC) Count 7.2 thou/uL (4.8-10.8)
[2018-03-30 20:55] LABS: ALT (SGPT) 66 U/L (8-55); AST (SGOT) 66 U/L (5-34); Albumin 4.1 g/dL (3.5-5.0); Alkaline Phosphatase 113 U/L (40-150); Anion Gap 19 mmol/L (10-20); BUN (Urea Nitrogen) 5 mg/dL (8.4-25.7); Bilirubin, Total 0.6 mg/dL (0.2-1.2); Calc. Creatinine Clearance 0 mL/min (70-130); Carbon Dioxide 21 mmol/L (22-29); Chloride 86 mmol/L (98-107); Estimated GFR-MDRD 87; Globulin 3.1 g/dL (2.4-3.5); Glucose 100 mg/dL (70-105); Protein, Total 7.2 g/dL (6.0-8.3); Sodium 123 mmol/L (136-145)
[2018-03-30 20:58] LABS: Potassium 2.9 mmol/L (3.5-5.1)
--- NOTE | 2018-03-30 21:14 | RAD ---
SINGLE VIEW OF THE CHEST: Comparison: 03-14-18 History: Difficulty breathing for two days. FINDINGS: Single view of the chest shows a normal sized cardiomediastinal silhouette. Scarring is seen in the r ight lung base. There is no evidence of consolidation, mass, or pleural effusions. IMPRESSION: No evidence of acute cardiopulmonary disease. POS: [facility]
[2018-03-30] MEDS ORDERED: Acetaminophen 325 MG TAB PO PRN (21:17)
[2018-03-30] MEDS ORDERED: Senokot S 8.6-50 MG TAB PO PRN (21:17)
[2018-03-30 22:32] VITALS: BMI 26.4
[2018-03-30] MEDS ORDERED: Lorazepam 0.5 MG TAB PO PRN (22:40)
[2018-03-30 23:36] LABS: Anion Gap 19 mmol/L (10-20); BUN (Urea Nitrogen) 6 mg/dL (8.4-25.7); Calc. Creatinine Clearance 125 mL/min (70-130); Calcium 8.9 mg/dL (7.8-10.44); Carbon Dioxide 22 mmol/L (22-29); Chloride 88 mmol/L (98-107); Estimated GFR-MDRD Greater than 90; Glucose 118 mg/dL (70-105); Magnesium 2.4 mg/dL (1.6-2.6); Sodium 126 mmol/L (136-145)
[2018-03-30 23:40] LABS: Potassium 2.9 mmol/L (3.5-5.1)
[2018-03-31] MEDS ORDERED: Potassium Chloride 40 MEQ in Sodium Chloride 0.9% 500 ML IVPB SCH (00:30)
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
[2018-03-31 05:05] LABS: #Lymphocytes 0.3 thou/uL (1.20-3.40); #Neutrophils 1.3 thou/uL (1.40-6.50); %Basophils 0.4 % (0.0-1.0); %Eosinophils 0.6 % (0.0-10.0); %Lymphocytes 18.1 % (21.0-51.0); %Monocytes 2.2 % (0.0-10.0); %Neutrophils 78.7 % (42.0-75.0); Hemoglobin 14.3 g/dL (14.0-18.0); Mean Corpuscular HGB CONC 35.1 g/dL (32.0-36.0); Mean Corpuscular Hemoglobin 33.6 pg (27.0-31.0); Mean Corpuscular Volume 95.8 fL (78.0-98.0); Mean Platelet Volume 7.7 fL (7.4-10.4); Platelet Count 260 thou/uL (130-400); RBC Distribution Width 11.9 % (11.5-14.5); Red Blood Cell (RBC) Count 4.26 mill/uL (4.70-6.10); White Blood Cell (WBC) Count 1.7 thou/uL (4.8-10.8)
[2018-03-31 05:27] LABS: Anion Gap 14 mmol/L (10-20); BUN (Urea Nitrogen) 6 mg/dL (8.4-25.7); Calc. Creatinine Clearance 129 mL/min (70-130); Carbon Dioxide 25 mmol/L (22-29); Chloride 93 mmol/L (98-107); Estimated GFR-MDRD Greater than 90; Glucose 168 mg/dL (70-105); Potassium 3.9 mmol/L (3.5-5.1); Sodium 128 mmol/L (136-145)
[2018-03-31] MEDS: Enoxaparin Sodium 40 MG/0.4 ML SYRINGE SC SCH (08:51)
[2018-03-31] MEDS: guaiFENesin ER 600 MG TAB PO SCH ×2 (08:51→21:01)
[2018-03-31] MEDS: Cyanocobalamin (Vitamin B-12) 1,000 MCG TAB PO SCH (08:51)
[2018-03-31] MEDS: Amlodipine 10 MG TAB PO SCH (08:51)
[2018-03-31] MEDS: Folic Acid 1 MG TAB PO SCH (08:51)
--- NOTE | 2018-03-31 11:49 | PDOC.PN ---
- Subjective Encounter Start Date: 03/31/18 Encounter Start Time: 11:47 Subjective: feels a little better but still coughing and has phlegmn -: breathin difficulty when ambulates - Objective Resuscitation Status - Order Detail: 03/30/18 21:17 Resuscitation Status Routine Resuscitation Status: FULL: Full Resuscitation MAR Reviewed: Yes Vital Signs & Weight: Vital Signs (12 hours) Temp Pulse Resp BP Pulse Ox 03/31/18 11:27 100.0 F H 92 18 132/80 96 03/31/18 09:23 88 20 96 03/31/18 08:51 98 03/31/18 07:18 99.5 F 108 H 15 132/79 95 03/31/18 06:01 93 20 97 03/31/18 04:00 95 03/31/18 03:49 99.2 F 95 18 124/74 95 03/31/18 02:18 96 20 96 03/30/18 23:54 99.1 F 89 20 121/78 96 Weight Weight 197 lb 9.6 oz I&O: 03/30/18 03/31/18 04/01/18 06:59 06:59 06:59 Intake Total 1350 Output Total 1800 Balance -450 Result Diagrams: 03/31/18 04:29 03/31/18 04:29 Additional Labs: Laboratory Tests 10/17/17 10/18/17 10/18/17 02:21 04:26 04:26 Sodium 133 L AST 145 H 57 H ALT 97 H 78 H Hep Bs Antigen Non-Reactive Hep Bs Antibody Non-Reactive Hep Bs Antibody Index 0.39 Hep B Core Total Ab Non-Reactive Hepatitis C Antibody Non-Reactive 02/17/18 03/14/18 03/30/18 12:32 23:18 23:09 Sodium 134 L 132 L 126 L AST ALT Hep Bs Antigen Hep Bs Antibody Hep Bs Antibody Index Hep B Core Total Ab Hepatitis C Antibody 03/31/18 04:29 Sodium 128 L AST ALT Hep Bs Antigen Hep Bs Antibody Hep Bs Antibody Index Hep B Core Total Ab Hepatitis C Antibody Phys Exam - Physical Examination Constitutional: NAD coughing HEENT: PERRLA, moist MMs, sclera anicteric, oral pharynx no lesions Neck: no nodes, no JVD, supple, full ROM Respiratory: wheezing present Cardiovascular: RRR, no significant murmur Gastrointestinal: soft, non-tender, no distention, positive bowel sounds Musculoskeletal: no edema, pulses present Neurological: non-focal, normal sensation, moves all 4 limbs Psychiatric: normal affect, A&O x 3 Skin: no rash Dx/Plan (1) Acute exacerbation of chronic obstructive pulmonary disease (COPD) Code(s): J44.1 - CHRONIC OBSTRUCTIVE PULMONARY DISEASE W (ACUTE) EXACERBATION Status: Acute (2) Hypokalemia Code(s): E87.6 - HYPOKALEMIA Status: Resolved (3) Hyponatremia Code(s): E87.1 - HYPO-OSMOLALITY AND HYPONATREMIA Status: Resolved Comment: Due to Beer potomania.drinks 6 pack daily (4) Alcohol abuse Code(s): F10.10 - ALCOHOL ABUSE, UNCOMPLICATED Status: Chronic Comment: Continue ASE protocol (5) CKD (chronic kidney disease) stage 2, GFR 60-89 ml/min Code(s): N18.2 - CHRONIC KIDNEY DISEASE, STAGE 2 (MILD) Status: Chronic (6) Hypertension Code(s): I10 - ESSENTIAL (PRIMARY) HYPERTENSION Status: Chronic Qualifiers: Comment: Fairly well controlled. Continue home meds. (7) Macrocytosis Code(s): D75.89 - OTHER SPECIFIED DISEASES OF BLOOD AND BLOOD-FORMING ORGANS Status: Chronic (8) Tobacco abuse Code(s): Z72.0 - TOBACCO USE Status: Chronic Comment: Counselled on cessation. Declines patch. - Plan continue antibiotics, respiratory therapy, incentive spirometry, out of bed/ ambulate, DVT proph w/SCDs cont nebs,steroids,o2,IS,empiric ABx -: Off of Bipap -: sodium and potassium better.monitor.Free H2O restriction. -: ASEprotocol -: Counselling provided * . Review of Systems - Review of Systems Constitutional: weakness. negative: fever, chills, sweats, malaise, other Respiratory: Cough, Shortness of Breath, SOB with Excertion, Sputum, Wheezing. negative: Dry, Hemoptysis, Pleuritic Pain Cardiovascular: negative: chest pain, palpitations, orthopnea, paroxysmal nocturnal dyspnea, edema, light headedness, other Gastrointestinal: negative: Nausea, Vomiting, Abdominal Pain, Diarrhea, Constipation, Melena, Hematochezia, Other Genitourinary: negative: Dysuria, Frequency, Incontinence, Hematuria, Retention , Other Neurological: negative: Weakness, Numbness, Incoordination, Change in Speech, Confusion, Seizures, Other - Medications/Allergies Allergies/Adverse Reactions: Allergies Allergy/AdvReac Type Severity Reaction Status Date / Time aspirin Allergy Hives Verified 09/25/17 01:00 ceftriaxone sodium Allergy Hives Verified 09/25/17 01:00 [From Rocephin] Medications: Current Medications Acetaminophen (Tylenol) 650 mg PO Q4H PRN PRN Reason: Headache/Fever/Mild Pain (1-3) Albuterol/Ipratropium (Duoneb) 3 ml NEB [id number] [facility] Last Admin: 03/31/18 09:23 Dose: 3 ml Albuterol/Ipratropium (Duoneb) 3 ml NEB Q6H PRN PRN Reason: SOB &/or Wheezing Amlodipine Besylate (Norvasc) 10 mg PO DAILY [facility] Last Admin: 03/31/18 08:51 Dose: 10 mg Cyanocobalamin (Vitamin B-12) 1,000 mcg PO DAILY [facility] Last Admin: 03/31/18 08:51 Dose: 1,000 mcg Enoxaparin Sodium (Lovenox) 40 mg SC 0900 [facility] Last Admin: 03/31/18 08:51 Dose: 40 mg Folic Acid (Folvite) 1 mg PO DAILY [facility] Last Admin: 03/31/18 08:51 Dose: 1 mg Guaifenesin (Mucinex) 600 mg PO Q12HR [facility] Last Admin: 03/31/18 08:51 Dose: 600 mg Levofloxacin 500 mg/ Device 100 mls @ 100 mls/hr IVPB Q24HR [facility] Last Admin: 03/30/18 23:02 Dose: 100 mls Lorazepam (Ativan) 0.5 mg PO Q4H PRN PRN Reason: Anxiety Methylprednisolone Sodium Succinate (Solu-Medrol) 40 mg IVP DAILY [facility] Last Admin: 03/31/18 08:51 Dose: 40 mg Senna/Docusate Sodium (Senokot S) 2 tab PO BIDPRN PRN PRN Reason: Constipation
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
[2018-04-01 05:41] LABS: #Lymphocytes 0.4 thou/uL (1.20-3.40); #Monocytes 0.5 thou/uL (0.11-0.59); #Neutrophils 7.3 thou/uL (1.40-6.50); %Basophils 0.4 % (0.0-1.0); %Eosinophils 0.2 % (0.0-10.0); %Lymphocytes 4.7 % (21.0-51.0); %Monocytes 5.8 % (0.0-10.0); Hemoglobin 13.7 g/dL (14.0-18.0); Mean Corpuscular Hemoglobin 33.3 pg (27.0-31.0); Mean Platelet Volume 7.5 fL (7.4-10.4); Platelet Count 312 thou/uL (130-400); RBC Distribution Width 12.2 % (11.5-14.5); Red Blood Cell (RBC) Count 4.12 mill/uL (4.70-6.10); White Blood Cell (WBC) Count 8.2 thou/uL (4.8-10.8)
[2018-04-01 06:01] LABS: Anion Gap 13 mmol/L (10-20); BUN (Urea Nitrogen) 12 mg/dL (8.4-25.7); Calc. Creatinine Clearance 123 mL/min (70-130); Carbon Dioxide 28 mmol/L (22-29); Chloride 95 mmol/L (98-107); Estimated GFR-MDRD Greater than 90; Glucose 146 mg/dL (70-105); Potassium 3.8 mmol/L (3.5-5.1); Sodium 132 mmol/L (136-145)
[2018-04-01] MEDS: Folic Acid 1 MG TAB PO SCH (08:56)
[2018-04-01] MEDS: Amlodipine 10 MG TAB PO SCH (08:56)
[2018-04-01] MEDS: Cyanocobalamin (Vitamin B-12) 1,000 MCG TAB PO SCH (08:56)
[2018-04-01] MEDS: guaiFENesin ER 600 MG TAB PO SCH ×2 (08:56→20:46)
[2018-04-01] MEDS: Enoxaparin Sodium 40 MG/0.4 ML SYRINGE SC SCH (08:56)
--- NOTE | 2018-04-01 12:11 | PDOC.PN ---
- Subjective Encounter Start Date: 04/01/18 Encounter Start Time: 12:09 Subjective: feels a littl ebetter but still easily SOB w ambulation -: non productive cough.no CP - Objective Resuscitation Status - Order Detail: 03/30/18 21:17 Resuscitation Status Routine Resuscitation Status: FULL: Full Resuscitation MAR Reviewed: Yes Vital Signs & Weight: Vital Signs (12 hours) Temp Pulse Resp BP Pulse Ox 04/01/18 10:57 99.0 F 97 18 109/71 97 04/01/18 10:52 93 20 97 04/01/18 08:56 102 H 04/01/18 08:08 97 04/01/18 08:06 102 H 20 97 04/01/18 07:21 99.0 F 86 19 144/85 H 96 04/01/18 04:30 98.3 F 87 18 125/80 94 L 04/01/18 03:24 92 16 98 Weight Weight 199 lb 1.6 oz I&O: 03/31/18 04/01/18 04/02/18 06:59 06:59 06:59 Intake Total 1350 2080 Output Total 1800 1750 Balance -450 330 Result Diagrams: 04/01/18 05:30 04/01/18 05:30 Additional Labs: Laboratory Tests 03/30/18 03/30/18 03/31/18 20:18 23:09 04:29 Sodium 123 L 126 L 128 L 04/01/18 05:30 Sodium 132 L Phys Exam - Physical Examination Constitutional: NAD HEENT: PERRLA, moist MMs, sclera anicteric, oral pharynx no lesions Neck: no nodes, no JVD, supple, full ROM Respiratory: no rales, wheezing present, clear to auscultation bilateral rhonchi present Cardiovascular: RRR, no significant murmur Gastrointestinal: soft, non-tender, no distention, positive bowel sounds Musculoskeletal: no edema, pulses present Neurological: non-focal, normal sensation, moves all 4 limbs Psychiatric: normal affect, A&O x 3 Skin: no rash Dx/Plan (1) Acute exacerbation of chronic obstructive pulmonary disease (COPD) Code(s): J44.1 - CHRONIC OBSTRUCTIVE PULMONARY DISEASE W (ACUTE) EXACERBATION Status: Acute (2) Hypokalemia Code(s): E87.6 - HYPOKALEMIA Status: Resolved (3) Hyponatremia Code(s): E87.1 - HYPO-OSMOLALITY AND HYPONATREMIA Status: Resolved Comment: Due to Beer potomania.drinks 6 pack daily (4) Alcohol abuse Code(s): F10.10 - ALCOHOL ABUSE, UNCOMPLICATED Status: Chronic Comment: Continue ASE protocol (5) CKD (chronic kidney disease) stage 2, GFR 60-89 ml/min Code(s): N18.2 - CHRONIC KIDNEY DISEASE, STAGE 2 (MILD) Status: Chronic (6) Hypertension Code(s): I10 - ESSENTIAL (PRIMARY) HYPERTENSION Status: Chronic Qualifiers: Comment: Fairly well controlled. Continue home meds. (7) Macrocytosis Code(s): D75.89 - OTHER SPECIFIED DISEASES OF BLOOD AND BLOOD-FORMING ORGANS Status: Chronic (8) Tobacco abuse Code(s): Z72.0 - TOBACCO USE Status: Chronic Comment: Counselled on cessation. Declines patch. reports that he has quit smoking - Plan respiratory therapy, incentive spirometry, DVT proph w/SCDs Cont current meds.slow clinical improvement.steroids increased yesterday. -: sodium and potassium better.monitor -: ambulate -: am labs * . Review of Systems - Review of Systems Constitutional: weakness, malaise. negative: fever, chills, sweats, other Respiratory: Cough, SOB with Excertion. negative: Dry, Shortness of Breath, Hemoptysis, Pleuritic Pain, Sputum, Wheezing Cardiovascular: negative: chest pain, palpitations, orthopnea, paroxysmal nocturnal dyspnea, edema, light headedness, other Gastrointestinal: negative: Nausea, Vomiting, Abdominal Pain, Diarrhea, Constipation, Melena, Hematochezia, Other Genitourinary: negative: Dysuria, Frequency, Incontinence, Hematuria, Retention , Other Neurological: negative: Weakness, Numbness, Incoordination, Change in Speech, Confusion, Seizures, Other - Medications/Allergies Allergies/Adverse Reactions: Allergies Allergy/AdvReac Type Severity Reaction Status Date / Time aspirin Allergy Hives Verified 09/25/17 01:00 ceftriaxone sodium Allergy Hives Verified 09/25/17 01:00 [From Rocephin] Medications: Current Medications Acetaminophen (Tylenol) 650 mg PO Q4H PRN PRN Reason: Headache/Fever/Mild Pain (1-3) Last Admin: 04/01/18 05:36 Dose: 650 mg Albuterol/Ipratropium (Duoneb) 3 ml NEB [id number] Last Admin: 04/01/18 10:52 Dose: 3 ml Albuterol/Ipratropium (Duoneb) 3 ml NEB Q6H PRN PRN Reason: SOB &/or Wheezing Amlodipine Besylate (Norvasc) 10 mg PO DAILY [facility] Last Admin: 04/01/18 08:56 Dose: 10 mg Cyanocobalamin (Vitamin B-12) 1,000 mcg PO DAILY [facility] Last Admin: 04/01/18 08:56 Dose: 1,000 mcg Enoxaparin Sodium (Lovenox) 40 mg SC 0900 [facility] Last Admin: 04/01/18 08:56 Dose: 40 mg Folic Acid (Folvite) 1 mg PO DAILY [facility] Last Admin: 04/01/18 08:56 Dose: 1 mg Guaifenesin (Mucinex) 600 mg PO Q12HR [facility] Last Admin: 04/01/18 08:56 Dose: 600 mg Levofloxacin 500 mg/ Device 100 mls @ 100 mls/hr IVPB Q24HR [facility] Last Admin: 03/31/18 21:01 Dose: 100 mls Lorazepam (Ativan) 0.5 mg PO Q4H PRN PRN Reason: Anxiety Methylprednisolone Sodium Succinate (Solu-Medrol) 40 mg IVP Q8HR [facility] Last Admin: 04/01/18 05:23 Dose: 40 mg Senna/Docusate Sodium (Senokot S) 2 tab PO BIDPRN PRN PRN Reason: Constipation
--- NOTE | 2018-04-01 15:57 | PRG ---
DATE OF SERVICE: 04/01/2018 SERVICE: Pulmonary Medicine. INTERVAL HISTORY: The patient is doing really well from respiratory standpoint. His breathing is opening up a little bit. He still coughs. He is still wheezing. He is getting up a little bit of sputum which is good for him. Otherwise, there has been no interval change to his condition. PHYSICAL EXAMINATION: VITAL SIGNS: Afebrile with a T-max of 99.0, pulse 97, blood pressure 109/71, respirations 18, saturation 97% on 3 L nasal cannula. GENERAL: The patient is awake and alert, in no apparent distress. LUNGS: Good air entry. There is a prolonged expiratory phase with polyphonic wheezing present. HEART: Normal rate, regular. ABDOMEN: Soft, nontender, and nondistended. Bowel sounds are positive. MUSCULOSKELETAL: No cyanosis or clubbing. No pitting in the bilateral lower extremities. NEUROLOGIC: Grossly nonfocal. LABORATORY DATA: WBC 8.2, hemoglobin 13.7, platelets 312,000. Sodium 132 and improving. Basic metabolic profile is otherwise unremarkable. ASSESSMENT: 1. Chronic obstructive pulmonary disease with acute exacerbation. 2. Hyponatremia, improving. DISCUSSION AND PLAN: The patient is stable for transition to the medical unit. We will continue antibiotics, nebulized medications, and steroids. Pulmonary Critical Care will continue to follow along for the time being. Job ID: [id number]
[2018-04-02 06:51] LABS: Anion Gap 11 mmol/L (10-20); BUN (Urea Nitrogen) 14 mg/dL (8.4-25.7); Calc. Creatinine Clearance 130 mL/min (70-130); Calcium 8.9 mg/dL (7.8-10.44); Carbon Dioxide 28 mmol/L (22-29); Chloride 97 mmol/L (98-107); Estimated GFR-MDRD Greater than 90; Glucose 131 mg/dL (70-105); Sodium 132 mmol/L (136-145)
[2018-04-02] MEDS: Folic Acid 1 MG TAB PO SCH (08:35)
[2018-04-02] MEDS: Amlodipine 10 MG TAB PO SCH (08:35)
[2018-04-02] MEDS: Enoxaparin Sodium 40 MG/0.4 ML SYRINGE SC SCH (08:36)
[2018-04-02] MEDS: guaiFENesin ER 600 MG TAB PO SCH ×2 (08:36→20:17)
[2018-04-02] MEDS: Cyanocobalamin (Vitamin B-12) 1,000 MCG TAB PO SCH (08:36)
[2018-04-02] MEDS: predniSONE 20 MG TAB PO SCH (08:36)
[2018-04-02] MEDS ORDERED: guaiFENesin/Codeine Phosphate 200 mg/20 mg 10 ml UD Cup PO PRN (11:02)
[2018-04-02] MEDS ORDERED: Benzonatate 100 MG CAP PO PRN (11:03)
--- NOTE | 2018-04-02 12:57 | PDOC.PN ---
- Subjective Encounter Start Date: 04/02/18 Encounter Start Time: 10:15 Subjective: pt up in bed still sob - Objective Resuscitation Status - Order Detail: 03/30/18 21:17 Resuscitation Status Routine Resuscitation Status: FULL: Full Resuscitation Vital Signs & Weight: Vital Signs (12 hours) Temp Pulse Resp BP BP Pulse Ox 04/02/18 10:54 99.2 F 91 22 H 119/81 94 L 04/02/18 08:35 94 142/90 H 04/02/18 07:38 94 18 95 04/02/18 07:23 98.0 F 93 19 141/95 H 97 04/02/18 04:14 98.4 F 87 18 139/88 139/88 96 Weight Weight 199 lb 1.6 oz I&O: 04/01/18 04/02/18 04/03/18 06:59 06:59 06:59 Intake Total 2080 1640 Output Total 1750 800 Balance 330 840 Result Diagrams: 04/01/18 05:30 04/02/18 06:18 Phys Exam - Physical Examination Respiratory: wheezing present Cardiovascular: RRR, no significant murmur, no rub, gallop, irregular Gastrointestinal: soft, non-tender, no distention, positive bowel sounds Musculoskeletal: no edema, pulses present, edema present Dx/Plan (1) Acute exacerbation of chronic obstructive pulmonary disease (COPD) Code(s): J44.1 - CHRONIC OBSTRUCTIVE PULMONARY DISEASE W (ACUTE) EXACERBATION Status: Acute (2) Hypertension Code(s): I10 - ESSENTIAL (PRIMARY) HYPERTENSION Status: Chronic Qualifiers: Comment: Fairly well controlled. Continue home meds. (3) Alcohol abuse Code(s): F10.10 - ALCOHOL ABUSE, UNCOMPLICATED Status: Chronic Comment: Continue ASE protocol - Plan will continue current tx -: will add robitussin with codeine -: continue steroids * . Review of Systems - Review of Systems Respiratory: Shortness of Breath Cardiovascular: negative: chest pain, palpitations, orthopnea, paroxysmal nocturnal dyspnea, edema, light headedness, other Gastrointestinal: negative: Nausea, Vomiting, Abdominal Pain, Diarrhea, Constipation, Melena, Hematochezia, Other Genitourinary: negative: Dysuria, Frequency, Incontinence, Hematuria, Retention , Other - Medications/Allergies Allergies/Adverse Reactions: Allergies Allergy/AdvReac Type Severity Reaction Status Date / Time aspirin Allergy Hives Verified 09/25/17 01:00 ceftriaxone sodium Allergy Hives Verified 09/25/17 01:00 [From Rocephin] Medications: Current Medications Acetaminophen (Tylenol) 650 mg PO Q4H PRN PRN Reason: Headache/Fever/Mild Pain (1-3) Last Admin: 04/01/18 05:36 Dose: 650 mg Albuterol/Ipratropium (Duoneb) 3 ml NEB Q6H PRN PRN Reason: SOB &/or Wheezing Last Admin: 04/01/18 15:01 Dose: 3 ml Albuterol/Ipratropium (Duoneb) 3 ml NEB [id number] [facility] Last Admin: 04/02/18 07:38 Dose: 3 ml Amlodipine Besylate (Norvasc) 10 mg PO DAILY [facility] Last Admin: 04/02/18 08:35 Dose: 10 mg Benzonatate (Tessalon) 100 mg PO TIDPRN PRN PRN Reason: Cough Cyanocobalamin (Vitamin B-12) 1,000 mcg PO DAILY [facility] Last Admin: 04/02/18 08:36 Dose: 1,000 mcg Enoxaparin Sodium (Lovenox) 40 mg SC 0900 [facility] Last Admin: 04/02/18 08:36 Dose: 40 mg Folic Acid (Folvite) 1 mg PO DAILY [facility] Last Admin: 04/02/18 08:35 Dose: 1 mg Guaifenesin (Mucinex) 600 mg PO Q12HR [facility] Last Admin: 04/02/18 08:36 Dose: 600 mg Guaifenesin/Codeine Phosphate (Robitussin Ac) 10 ml PO HS PRN PRN Reason: Cough Levofloxacin 500 mg/ Device 100 mls @ 100 mls/hr IVPB Q24HR [facility] Last Admin: 04/01/18 22:03 Dose: 100 mls Lorazepam (Ativan) 0.5 mg PO Q4H PRN PRN Reason: Anxiety Prednisone (Prednisone) 40 mg PO QAM[facility] Stop: 04/05/18 08:01 Last Admin: 04/02/18 08:36 Dose: 40 mg Senna/Docusate Sodium (Senokot S) 2 tab PO BIDPRN PRN PRN Reason: Constipation
--- NOTE | 2018-04-02 13:27 | PRG ---
DATE OF SERVICE: 04/02/2018 SERVICE: Pulmonary Medicine. INTERVAL HISTORY: The patient is doing fine from a respiratory standpoint. He continues to cough. It bring up a little bit of sputum. That being said, his shortness of breath is dramatically improving. He denies any current fevers, chills, nausea, or vomiting. OBJECTIVE: VITAL SIGNS: Afebrile currently with a T-max of 99.2, pulse 91, blood pressure 119/81, respirations 22, and saturation 94% on 2 L nasal cannula. GENERAL: The patient is awake and alert, in no apparent distress. LUNGS: Much improved air entry. There is a prolonged expiratory phase. Rhonchi and wheezing are both present. No crackles. HEART: Normal rate, regular. ABDOMEN: Soft, nontender, and nondistended. Bowel sounds are positive. MUSCULOSKELETAL: No cyanosis or clubbing. No pitting in bilateral lower extremities. NEUROLOGIC: Grossly nonfocal. LABORATORY DATA: Sodium 132. Basic metabolic profile is essentially unremarkable, otherwise. ASSESSMENT: 1. Chronic obstructive pulmonary disease with acute exacerbation. 2. Hyponatremia, resolving. 3. History of alcohol abuse. DISCUSSION AND PLAN: The patient is stable for transition to the medical unit. He is not quite ready to go home yet given his severe symptoms and coughing paroxysms. As such, I will continue to watch him for an additional 24 hours. Pulmonary/Critical Care will continue to follow along. Job ID: [id number]
[2018-04-02] MEDS: Guaifenesin DM 100-10/5 ML UDCUP PO PRN (22:04)
[2018-04-03] MEDS: Guaifenesin DM 100-10/5 ML UDCUP PO PRN ×2 (04:13→20:02)
[2018-04-03] MEDS: predniSONE 20 MG TAB PO SCH (08:03)
[2018-04-03] MEDS: guaiFENesin ER 600 MG TAB PO SCH ×2 (08:04→20:02)
[2018-04-03] MEDS: Cyanocobalamin (Vitamin B-12) 1,000 MCG TAB PO SCH (08:04)
[2018-04-03] MEDS: Enoxaparin Sodium 40 MG/0.4 ML SYRINGE SC SCH (08:04)
[2018-04-03] MEDS: Folic Acid 1 MG TAB PO SCH (08:04)
[2018-04-03] MEDS: Amlodipine 10 MG TAB PO SCH (08:04)
--- NOTE | 2018-04-03 13:36 | PDOC.PN ---
- Subjective Encounter Start Date: 04/03/18 Encounter Start Time: 11:00 Subjective: pt up in bed no complains - Objective Resuscitation Status - Order Detail: 03/30/18 21:17 Resuscitation Status Routine Resuscitation Status: FULL: Full Resuscitation Vital Signs & Weight: Vital Signs (12 hours) Temp Pulse Resp BP BP Pulse Ox 04/03/18 11:34 98.2 F 98 20 147/93 H 95 04/03/18 08:04 99 04/03/18 07:59 97.9 F 99 22 H 129/78 129/78 95 04/03/18 07:10 97 04/03/18 07:08 96 16 97 04/03/18 04:10 97.8 F 80 18 133/82 98 Weight Weight 197 lb 3 oz I&O: 04/02/18 04/03/18 04/04/18 06:59 06:59 06:59 Intake Total 1640 1320 Output Total 800 400 Balance 840 920 Result Diagrams: 04/01/18 05:30 04/02/18 06:18 Phys Exam - Physical Examination Neck: no nodes, no JVD, supple, full ROM rhonchi and mild exp wheezing all over Cardiovascular: RRR, no significant murmur, no rub, gallop, irregular Gastrointestinal: soft, non-tender, no distention, positive bowel sounds Dx/Plan (1) Acute exacerbation of chronic obstructive pulmonary disease (COPD) Code(s): J44.1 - CHRONIC OBSTRUCTIVE PULMONARY DISEASE W (ACUTE) EXACERBATION Status: Acute (2) Hypertension Code(s): I10 - ESSENTIAL (PRIMARY) HYPERTENSION Status: Chronic Qualifiers: Comment: Fairly well controlled. Continue home meds. (3) Alcohol abuse Code(s): F10.10 - ALCOHOL ABUSE, UNCOMPLICATED Status: Chronic Comment: Continue ASE protocol - Plan pt continues to have wheezing and rhonchi -: will continue current steroids and abx * . Review of Systems - Review of Systems Cardiovascular: negative: chest pain, palpitations, orthopnea, paroxysmal nocturnal dyspnea, edema, light headedness, other Gastrointestinal: negative: Nausea, Vomiting, Abdominal Pain, Diarrhea, Constipation, Melena, Hematochezia, Other Genitourinary: negative: Dysuria, Frequency, Incontinence, Hematuria, Retention , Other - Medications/Allergies Allergies/Adverse Reactions: Allergies Allergy/AdvReac Type Severity Reaction Status Date / Time aspirin Allergy Hives Verified 09/25/17 01:00 ceftriaxone sodium Allergy Hives Verified 09/25/17 01:00 [From Rocepnjn] Medications: Current Medications Acetaminophen (Tylenol) 650 mg PO Q4H PRN PRN Reason: Headache/Fever/Mild Pain (1-3) Last Admin: 04/01/18 05:36 Dose: 650 mg Albuterol/Ipratropium (Duoneb) 3 ml NEB Q6H PRN PRN Reason: SOB &/or Wheezing Last Admin: 04/01/18 15:01 Dose: 3 ml Albuterol/Ipratropium (Duoneb) 3 ml NEB [id number] [facility] Last Admin: 04/03/18 07:08 Dose: 3 ml Amlodipine Besylate (Norvasc) 10 mg PO DAILY [facility] Last Admin: 04/03/18 08:04 Dose: 10 mg Cyanocobalamin (Vitamin B-12) 1,000 mcg PO DAILY [facility] Last Admin: 04/03/18 08:04 Dose: 1,000 mcg Enoxaparin Sodium (Lovenox) 40 mg SC 0900 [facility] Last Admin: 04/03/18 08:04 Dose: 40 mg Folic Acid (Folvite) 1 mg PO DAILY [facility] Last Admin: 04/03/18 08:04 Dose: 1 mg Guaifenesin (Mucinex) 600 mg PO Q12HR [facility] Last Admin: 04/03/18 08:04 Dose: 600 mg Guaifenesin/Dextromethorphan (Robitussin Dm) 10 ml PO Q6H PRN PRN Reason: Cough Last Admin: 04/03/18 04:13 Dose: 10 ml Levofloxacin 500 mg/ Device 100 mls @ 100 mls/hr IVPB Q24HR [facility] Last Admin: 04/02/18 20:17 Dose: 100 mls Prednisone (Prednisone) 40 mg PO QAM[facility] Stop: 04/05/18 08:01 Last Admin: 04/03/18 08:03 Dose: 40 mg Senna/Docusate Sodium (Senokot S) 2 tab PO BIDPRN PRN PRN Reason: Constipation
--- NOTE | 2018-04-03 17:39 | PRG ---
DATE OF SERVICE: 04/03/2018 SERVICE: Pulmonary Medicine. INTERVAL HISTORY: The patient is doing great from respiratory standpoint. Denies any current chest pain, fevers, or chills. Otherwise, there has been no interval change to the condition of the patient. He is coughing. Today, his cough has been very effective in clearing the sputum and each time he clears some sputum, his breathing gets little bit better. He thinks he is going to be ready to go home in the morning. PHYSICAL EXAMINATION: VITAL SIGNS: Afebrile, pulse 99, blood pressure 127/76, respirations 19, and saturations 94% on room air. GENERAL: The patient is awake and alert, in no apparent distress. LUNGS: Much improved air entry. Extensive rhonchi are present, but there is no wheezing today. HEART: Normal rate, regular. ABDOMEN: Soft, nontender, and nondistended. Bowel sounds are positive. MUSCULOSKELETAL: No cyanosis or clubbing. No pitting in the bilateral lower extremities. NEUROLOGIC: Grossly nonfocal. ASSESSMENT: 1. Chronic obstructive pulmonary disease with acute exacerbation, improving. 2. Hyponatremia, stable/resolved. 3. Alcohol abuse. DISCUSSION AND PLAN: The patient is ready for transition out of the hospital. He needs a 5-day course of steroids and a 5-day course of antibiotics. On discharge from the hospital, he can resume his home DuoNebs. I will continue to work with his primary care physician in the outpatient setting to make certain he is on appropriate therapy moving forward. If he remains in-house, I will continue to follow but from my perspective, if he feels up to it in the morning, he will be ready for transition home. Job ID: [id number]
[2018-04-04] MEDS: Guaifenesin DM 100-10/5 ML UDCUP PO PRN (06:14)
[2018-04-04] MEDS: Enoxaparin Sodium 40 MG/0.4 ML SYRINGE SC SCH (07:57)
[2018-04-04] MEDS: guaiFENesin ER 600 MG TAB PO SCH (07:57)
[2018-04-04] MEDS: predniSONE 20 MG TAB PO SCH (07:57)
[2018-04-04] MEDS: Folic Acid 1 MG TAB PO SCH (07:57)
[2018-04-04] MEDS: Cyanocobalamin (Vitamin B-12) 1,000 MCG TAB PO SCH (07:57)
[2018-04-04] MEDS: Amlodipine 10 MG TAB PO SCH (07:57)
[2018-04-04 11:02] VITALS: BP 161/83; TEMP 99
--- NOTE | 2018-04-04 22:45 | DIS ---
DATE OF ADMISSION: 03/30/2018 DATE OF DISCHARGE: 04/04/2018 DISCHARGE DIAGNOSES: As of the following; 1. Acute chronic obstructive pulmonary disease exacerbation. 2. Hypertension. 3. Alcohol use. HOSPITAL COURSE: The patient is a 57-year-old male who initially presented to the hospital on the with complaints of shortness of breath. The patient initially was put on IV steroids and antibiotics. He had a recent echocardiogram which indicated the EF of 60% to 65%. The patient initially was on BiPAP and was in IMCU, then was transferred on to the floor. The patient was seen by Pulmonology also. The patient continued to improve throughout the hospital stay and he was discharged on the . The patient stated that he was feeling well without any issues. HOME MEDICATIONS: 1. DuoNeb 3 mL q.i.d. p.r.n. 2. Hydrochlorothiazide 25 mg daily. 3. Amlodipine 10 mg daily. 4. Albuterol 2 puffs q.4 hours p.r.n. 5. Medrol Dosepak. 6. Mucinex 600 mg q.12 hours. 7. Levaquin 500 mg daily for 5 days. 8. Pepcid 20 mg b.i.d. PHYSICAL EXAMINATION: VITAL SIGNS: As of the following; temperature of 98.2, heart rate 89, respirations 18, oxygen saturation 97% on room air, blood pressure 157/74. GENERAL: He is awake, alert, and oriented x3. Does not appear in distress. CV: S1 and S2 present. No murmurs, rubs, or gallops. LUNGS: Mild rhonchi all over, however has improved from prior. ABDOMEN: Soft and nontender. Bowel sounds are present x2. EXTREMITIES: No edema. Pedal pulses are present x2. He will be discharged home. He will follow up with his primary care doctor in [facility] and also he is to follow up with Dr. Abel in 1 to 2 weeks. Job ID: [id number]
== END 2018-04-04 12:11 | disposition home or self-care (01) | DRG 191 ==
LOC: ERS 19:52 → IMCU/EMU 21:15 → 2NO 04-02 17:25
PROVIDERS: ADMIT Internal Medicine; ATTEND Internal Medicine
DX: J44.1 Chronic obstructive pulmonary disease with (acute) exacerbation (principal); E87.1 Hypo-osmolality and hyponatremia; E87.6 Hypokalemia; F10.10 Alcohol abuse, uncomplicated; D75.89 Other specified diseases of blood and blood-forming organs; I12.9 Hypertensive chronic kidney disease with stage 1 through stage 4 chronic kidney disease, or unspecified chronic kidney disease; N18.2 Chronic kidney disease, stage 2 (mild); Z87.891 Personal history of nicotine dependence
CPT/HCPCS: 36415; 71045; 80048; 80053; 82805; 83735; 83880; 84484; 85025; 90471; 90686; 93005; 94640; 94660; G0008; J1650; J1956; J2920; J3480; J7050; J7506; J7620

== ENCOUNTER 2018-04-11 20:26 | Inpatient (IN) | payer SELFPAY ==
[2018-04-11] MEDS ORDERED: Dexamethasone 4 mg/ml Vial ONE (20:33)
[2018-04-11 20:47] LABS: Analyzer IN Cardio ER; Base Excess (BEa) -2.6 mEq/L (-2.0 to +3.0); CO2 Tension 29.1 mmHg (35.0-45.0); Calcium, Ionized 1.13 mmol/L (1.12-1.30); Carboxyhemoglobin (COHb) 0.7 gm% (0.0-3.0); Hemoglobin (Hb) 14.2 g/dL (14.0-18.0); O2 Tension (PaO2) 455.8 mmHg (80.0-100.0); pH, Arterial 7.46 (7.35-7.45)
[2018-04-11 20:48] LABS: ALV-art Gradient 220.825 (0-20); Puncture Site RRA
[2018-04-11] MEDS ORDERED: Albuterol Sulfate 2.5 mg/3 ml Neb ONE (20:51)
--- NOTE | 2018-04-11 20:55 | RAD ---
FRONTAL VIEW CHEST: 04/11/18 COMPARISON: 03/30/18. INDICATION: Dyspnea. FINDINGS: Stable elevation of the right hemidiaphragm with blunting of the right costophrenic sulcus, and yinka cent scarring of the mid to inferior right lung. Left lung is clear. The cardiac silhouette is stable in size. IMPRESSION: Stable chest. POS: [facility]
[2018-04-11 21:13] LABS: #Basophils 0.1 thou/uL (0.0-0.2); #Eosinphils 0.1 thou/uL (0.0-0.7); #Monocytes 1.3 thou/uL (0.11-0.59); #Neutrophils 13.6 thou/uL (1.40-6.50); %Basophils 0.8 % (0.0-1.0); %Eosinophils 0.5 % (0.0-10.0); %Lymphocytes 11.6 % (21.0-51.0); %Monocytes 7.5 % (0.0-10.0); %Neutrophils 79.7 % (42.0-75.0); Hemoglobin 13.9 g/dL (14.0-18.0); Mean Corpuscular HGB CONC 34.7 g/dL (32.0-36.0); Mean Corpuscular Hemoglobin 33.6 pg (27.0-31.0); Mean Corpuscular Volume 96.9 fL (78.0-98.0); Mean Platelet Volume 6.8 fL (7.4-10.4); Platelet Count 479 thou/uL (130-400); RBC Distribution Width 11.9 % (11.5-14.5); Red Blood Cell (RBC) Count 4.13 mill/uL (4.70-6.10); White Blood Cell (WBC) Count 17.1 thou/uL (4.8-10.8)
[2018-04-11 21:36] LABS: ALT (SGPT) 71 U/L (8-55); AST (SGOT) 28 U/L (5-34); Albumin 3.8 g/dL (3.5-5.0); Alkaline Phosphatase 113 U/L (40-150); Anion Gap 17 mmol/L (10-20); BUN (Urea Nitrogen) 6 mg/dL (8.4-25.7); Bilirubin, Total 0.5 mg/dL (0.2-1.2); CK (CPK) 33 U/L (30-200); Calc. Creatinine Clearance 0 mL/min (70-130); Calcium 8.9 mg/dL (7.8-10.44); Carbon Dioxide 21 mmol/L (22-29); Chloride 99 mmol/L (98-107); Estimated GFR-MDRD Greater than 90; Globulin 3.6 g/dL (2.4-3.5); Glucose 103 mg/dL (70-105); Lipase 26 U/L (8-78); Potassium 3.9 mmol/L (3.5-5.1); Protein, Total 7.4 g/dL (6.0-8.3); Sodium 133 mmol/L (136-145)
[2018-04-11 21:39] LABS: CKMB 1.2 ng/mL (0-6.6)
[2018-04-11 23:02] LABS: Bilirubin Negative (Negative); Blood, Urine Negative (Negative); Clarity CLEAR (Clear); Glucose, Urine (Dipstick) Negative (Negative); Leukocyte Negative (Negative); Nitrite Negative (Negative); Protein, Urine (Dipstick) Negative (Neg-Trace); Specific Gravity, Urine 1.009 (1.002-1.036)
[2018-04-12] MEDS ORDERED: Ondansetron PF 4 MG/2 ML Vial IVP PRN ×2 (03:01→08:56)
[2018-04-12] MEDS ORDERED: Ondansetron ODT 4 MG TAB SL PRN (03:01)
[2018-04-12 03:06] VITALS: BMI 25.7
[2018-04-12] MEDS ORDERED: Sodium Chloride 0.9% 1,000 ML IV SCH (03:15)
[2018-04-12] MEDS: guaiFENesin ER 600 MG TAB PO SCH ×2 (08:04→21:20)
[2018-04-12] MEDS ORDERED: Senokot S 8.6-50 MG TAB PO PRN (08:56)
[2018-04-12] MEDS ORDERED: Ondansetron ODT 4 MG TAB PO PRN (08:56)
[2018-04-12] MEDS ORDERED: cloNIDine 0.1 MG TAB PO PRN (09:02)
[2018-04-12] MEDS ORDERED: Lorazepam 1 MG TAB PO PRN (09:02)
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
[2018-04-12] MEDS: Folic Acid 1 MG TAB PO SCH (09:56)
[2018-04-12] MEDS: Famotidine 20 MG TAB PO SCH ×2 (09:56→21:20)
[2018-04-12] MEDS: Azithromycin 500 MG in Sodium Chloride 0.9% 250 ML 250 ML IVPB SCH (10:47)
[2018-04-12] MEDS: Doxycycline 100 MG CAP PO SCH ×2 (12:36→21:20)
[2018-04-12] MEDS: Amlodipine 5 MG TAB PO SCH (21:19)
[2018-04-12] MEDS: Enoxaparin Sodium 40 MG/0.4 ML SYRINGE SC SCH (21:20)
[2018-04-13] MEDS: Doxycycline 100 MG CAP PO SCH ×2 (07:59→21:49)
[2018-04-13] MEDS: Hydrochlorothiazide 25 MG TAB PO SCH (07:59)
[2018-04-13] MEDS: guaiFENesin ER 600 MG TAB PO SCH ×2 (08:00→21:49)
[2018-04-13] MEDS: Famotidine 20 MG TAB PO SCH ×2 (08:00→21:49)
[2018-04-13] MEDS: Amlodipine 5 MG TAB PO SCH ×2 (08:00→21:49)
[2018-04-13] MEDS: Cyanocobalamin (Vitamin B-12) 1,000 MCG TAB PO SCH (08:01)
[2018-04-13] MEDS: Azithromycin 500 MG in Sodium Chloride 0.9% 250 ML 250 ML IVPB SCH (08:03)
[2018-04-13 08:08] LABS: #Basophils 0.1 thou/uL (0.0-0.2); #Lymphocytes 0.6 thou/uL (1.20-3.40); #Monocytes 0.3 thou/uL (0.11-0.59); #Neutrophils 11.2 thou/uL (1.40-6.50); %Basophils 0.6 % (0.0-1.0); %Lymphocytes 5.1 % (21.0-51.0); %Monocytes 2.7 % (0.0-10.0); %Neutrophils 91.6 % (42.0-75.0); Hemoglobin 12.4 g/dL (14.0-18.0); Mean Corpuscular HGB CONC 33.4 g/dL (32.0-36.0); Mean Corpuscular Hemoglobin 33.5 pg (27.0-31.0); Mean Platelet Volume 7.9 fL (7.4-10.4); Platelet Count 426 thou/uL (130-400); RBC Distribution Width 11.9 % (11.5-14.5); White Blood Cell (WBC) Count 12.3 thou/uL (4.8-10.8)
[2018-04-13 08:28] LABS: Anion Gap 13 mmol/L (10-20); BUN (Urea Nitrogen) 12 mg/dL (8.4-25.7); Calc. Creatinine Clearance 145 mL/min (70-130); Calcium 8.7 mg/dL (7.8-10.44); Carbon Dioxide 24 mmol/L (22-29); Chloride 100 mmol/L (98-107); Estimated GFR-MDRD Greater than 90; Glucose 150 mg/dL (70-105); Magnesium 2.6 mg/dL (1.6-2.6); Sodium 133 mmol/L (136-145)
[2018-04-13] MEDS: Folic Acid 1 MG TAB PO SCH (09:27)
--- NOTE | 2018-04-13 14:47 | PDOC.PN ---
- Subjective Encounter Start Date: 04/13/18 Encounter Start Time: 10:30 Patient seen and examined for COPD exacerbation. SOB/Wheezing improving. No new complaints. No overnight events - Objective Resuscitation Status - Order Detail: 04/12/18 08:56 Resuscitation Status Routine Resuscitation Status: FULL: Full Resuscitation MAR Reviewed: Yes Vital Signs & Weight: Vital Signs (12 hours) Temp Pulse Resp BP BP Pulse Ox 04/13/18 13:39 98 18 96 04/13/18 09:42 93 18 96 04/13/18 08:00 98.4 F 93 20 143/85 H 95 04/13/18 06:13 79 18 95 04/13/18 03:37 97.4 F L 92 18 122/74 122/74 94 L 04/13/18 02:46 83 18 95 Weight Weight 195 lb 1.745 oz I&O: 04/12/18 04/13/18 04/14/18 06:59 06:59 06:59 Intake Total 900 1702 720 Output Total 550 Balance 900 1152 720 Result Diagrams: 04/13/18 07:00 04/13/18 07:00 Phys Exam - Physical Examination Constitutional: NAD Respiratory: no rales, wheezing present B/L rhonchi Cardiovascular: RRR, no rub Gastrointestinal: soft, non-tender, positive bowel sounds Musculoskeletal: no edema Neurological: moves all 4 limbs Dx/Plan (1) Acute hypoxemic respiratory failure Code(s): J96.01 - ACUTE RESPIRATORY FAILURE WITH HYPOXIA Status: Acute Comment: (2) Acute exacerbation of chronic obstructive pulmonary disease (COPD) Code(s): J44.1 - CHRONIC OBSTRUCTIVE PULMONARY DISEASE W (ACUTE) EXACERBATION Status: Acute (3) Hypertension Code(s): I10 - ESSENTIAL (PRIMARY) HYPERTENSION Status: Chronic Qualifiers: (4) Chronic alcohol use Code(s): Z72.89 - OTHER PROBLEMS RELATED TO LIFESTYLE Status: Chronic (5) Other issues per previous notes - Plan DVT proph w/lovenox, DVT proph w/SCDs * Cont Steroids/Atbx/Nebs * Cont current meds as below * Walking program * Cont ASE protocol Microbiology 04/11/18 20:42 Nasal swab Influenza Types A,B Direct EIA - Final 04/11/18 21:02 Venous blood - Right Arm Blood Culture - Preliminary NO GROWTH AT 48 HOURS 04/11/18 21:02 Venous blood - Left Hand Blood Culture - Preliminary NO GROWTH AT 48 HOURS Review of Systems - Review of Systems Cardiovascular: negative: chest pain, palpitations, orthopnea, paroxysmal nocturnal dyspnea, edema, light headedness, other Gastrointestinal: negative: Nausea, Vomiting, Abdominal Pain, Diarrhea, Constipation, Melena, Hematochezia, Other - Medications/Allergies Allergies/Adverse Reactions: Allergies Allergy/AdvReac Type Severity Reaction Status Date / Time aspirin Allergy Hives Verified 04/12/18 02:56 ceftriaxone sodium Allergy Hives Verified 04/12/18 02:56 [From Rocephin] Medications: Current Medications Acetaminophen (Tylenol) 650 mg PO Q4H PRN PRN Reason: Headache/Fever/Mild Pain (1-3) Albuterol/Ipratropium (Duoneb) 3 ml NEB [id number] [facility] Last Admin: 04/13/18 13:39 Dose: 3 ml Albuterol/Ipratropium (Duoneb) 3 ml NEB [id number] PRN PRN Reason: SOB &/or Wheezing Amlodipine Besylate (Norvasc) 5 mg PO BID [facility] Last Admin: 04/13/18 08:00 Dose: 5 mg Clonidine (Catapres) 0.1 mg PO Q4H PRN PRN Reason: Systolic BP > 180 Cyanocobalamin (Vitamin B-12) 1,000 mcg PO DAILY [facility] Last Admin: 04/13/18 08:01 Dose: 1,000 mcg Doxycycline Hyclate (Vibramycin) 100 mg PO BID [facility] Last Admin: 04/13/18 07:59 Dose: 100 mg Enoxaparin Sodium (Lovenox) 40 mg SC 2100 [facility] Last Admin: 04/12/18 21:20 Dose: 40 mg Famotidine (Pepcid) 20 mg PO BID [facility] Last Admin: 04/13/18 08:00 Dose: 20 mg Folic Acid (Folvite) 1 mg PO Q24H [facility] Last Admin: 04/13/18 09:27 Dose: 1 mg Guaifenesin (Mucinex) 600 mg PO Q12HR [facility] Last Admin: 04/13/18 08:00 Dose: 600 mg Hydrochlorothiazide (Hydrochlorothiazide) 25 mg PO DAILY [facility] Last Admin: 04/13/18 07:59 Dose: 25 mg Azithromycin 500 mg/ Sodium (Chloride) 250 mls @ 250 mls/hr IVPB Q24HR [facility] Last Admin: 04/13/18 08:03 Dose: 250 mls Lorazepam (Ativan) 1 mg PO Q4H PRN PRN Reason: ASE >=9 Methylprednisolone Sodium Succinate (Solu-Medrol) 40 mg IVP Q6H [facility] Last Admin: 04/13/18 09:27 Dose: 40 mg Ondansetron HCl (Zofran Odt) 4 mg PO Q6H PRN PRN Reason: Nausea/Vomiting Ondansetron HCl (Zofran) 4 mg IVP Q6H PRN PRN Reason: Nausea/Vomiting Senna/Docusate Sodium (Senokot S) 2 tab PO BID PRN PRN Reason: Constipation Sodium Chloride (Flush - Normal Saline) 10 ml IVF Q12HR [facility] Last Admin: 04/13/18 08:00 Dose: 10 ml Sodium Chloride (Flush - Normal Saline) 10 ml IVF PRN PRN PRN Reason: Saline Flush Thiamine HCl (Thiamine) 100 mg PO DAILY [facility] Last Admin: 04/13/18 08:00 Dose: 100 mg
[2018-04-13] MEDS: Enoxaparin Sodium 40 MG/0.4 ML SYRINGE SC SCH (21:50)
[2018-04-14] MEDS: guaiFENesin ER 600 MG TAB PO SCH ×2 (08:28→20:36)
[2018-04-14] MEDS: Doxycycline 100 MG CAP PO SCH ×2 (08:28→20:35)
[2018-04-14] MEDS: Folic Acid 1 MG TAB PO SCH (08:28)
[2018-04-14] MEDS: Famotidine 20 MG TAB PO SCH ×2 (08:28→20:36)
[2018-04-14] MEDS: Hydrochlorothiazide 25 MG TAB PO SCH (08:28)
[2018-04-14] MEDS: Azithromycin 500 MG in Sodium Chloride 0.9% 250 ML 250 ML IVPB SCH (08:28)
[2018-04-14] MEDS: Cyanocobalamin (Vitamin B-12) 1,000 MCG TAB PO SCH (08:28)
[2018-04-14] MEDS: Amlodipine 5 MG TAB PO SCH ×2 (08:28→20:36)
[2018-04-14] MEDS: Enoxaparin Sodium 40 MG/0.4 ML SYRINGE SC SCH (20:35)
[2018-04-14] MEDS: Acetaminophen 325 MG TAB PO PRN (20:44)
--- NOTE | 2018-04-14 22:22 | PDOC.PN ---
- Subjective Encounter Start Date: 04/14/18 Encounter Start Time: 10:30 Patient seen and examined for COPD exacerbation. SOB and wheezing improving. No new complaints. No overnight events - Objective Resuscitation Status - Order Detail: 04/12/18 08:56 Resuscitation Status Routine Resuscitation Status: FULL: Full Resuscitation MAR Reviewed: Yes Vital Signs & Weight: Vital Signs (12 hours) Temp Pulse Resp BP Pulse Ox 04/14/18 20:36 83 04/14/18 19:37 98.0 F 83 20 135/82 94 L 04/14/18 14:22 87 94 L 04/14/18 10:30 87 18 94 L Weight Weight 195 lb 1.745 oz I&O: 04/13/18 04/14/18 04/15/18 06:59 06:59 06:59 Intake Total 1702 1702 2650 Output Total 550 Balance 1152 1702 2650 Result Diagrams: 04/13/18 07:00 04/13/18 07:00 Phys Exam - Physical Examination Constitutional: NAD Respiratory: no rales, wheezing present Scat rhonchi Cardiovascular: RRR, no rub Gastrointestinal: soft, non-tender, positive bowel sounds Musculoskeletal: no edema Neurological: moves all 4 limbs Psychiatric: A&O x 3 Dx/Plan (1) Acute hypoxemic respiratory failure Code(s): J96.01 - ACUTE RESPIRATORY FAILURE WITH HYPOXIA Status: Acute Comment: (2) Acute exacerbation of chronic obstructive pulmonary disease (COPD) Code(s): J44.1 - CHRONIC OBSTRUCTIVE PULMONARY DISEASE W (ACUTE) EXACERBATION Status: Acute (3) Hypertension Code(s): I10 - ESSENTIAL (PRIMARY) HYPERTENSION Status: Chronic Qualifiers: (4) Chronic alcohol use Code(s): Z72.89 - OTHER PROBLEMS RELATED TO LIFESTYLE Status: Chronic (5) Other issues per previous notes - Plan DVT proph w/SCDs Change Azithromycin to PO -: Reduce IV steroid dose -: Cont Nebs -: DC in 1-2 days if stable Review of Systems - Review of Systems Cardiovascular: negative: chest pain, palpitations, orthopnea, paroxysmal nocturnal dyspnea, edema, light headedness, other Gastrointestinal: negative: Nausea, Vomiting, Abdominal Pain, Diarrhea, Constipation, Melena, Hematochezia, Other - Medications/Allergies Allergies/Adverse Reactions: Allergies Allergy/AdvReac Type Severity Reaction Status Date / Time aspirin Allergy Hives Verified 04/12/18 02:56 ceftriaxone sodium Allergy Hives Verified 04/12/18 02:56 [From Rocephin] Medications: Current Medications Acetaminophen (Tylenol) 650 mg PO Q4H PRN PRN Reason: Headache/Fever/Mild Pain (1-3) Last Admin: 04/14/18 20:44 Dose: 650 mg Albuterol/Ipratropium (Duoneb) 3 ml NEB [id number] [facility] Last Admin: 04/14/18 20:05 Dose: Not Given Albuterol/Ipratropium (Duoneb) 3 ml NEB [id number] PRN PRN Reason: SOB &/or Wheezing Amlodipine Besylate (Norvasc) 5 mg PO BID [facility] Last Admin: 04/14/18 20:36 Dose: 5 mg Clonidine (Catapres) 0.1 mg PO Q4H PRN PRN Reason: Systolic BP > 180 Cyanocobalamin (Vitamin B-12) 1,000 mcg PO DAILY [facility] Last Admin: 04/14/18 08:28 Dose: 1,000 mcg Doxycycline Hyclate (Vibramycin) 100 mg PO BID [facility] Last Admin: 04/14/18 20:35 Dose: 100 mg Enoxaparin Sodium (Lovenox) 40 mg SC 2100 [facility] Last Admin: 04/14/18 20:35 Dose: Not Given Famotidine (Pepcid) 20 mg PO BID [facility] Last Admin: 04/14/18 20:36 Dose: 20 mg Folic Acid (Folvite) 1 mg PO Q24H [facility] Last Admin: 04/14/18 08:28 Dose: 1 mg Guaifenesin (Mucinex) 600 mg PO Q12HR [facility] Last Admin: 04/14/18 20:36 Dose: 600 mg Hydrochlorothiazide (Hydrochlorothiazide) 25 mg PO DAILY [facility] Last Admin: 04/14/18 08:28 Dose: 25 mg Azithromycin 500 mg/ Sodium (Chloride) 250 mls @ 250 mls/hr IVPB Q24HR [facility] Last Admin: 04/14/18 08:28 Dose: 250 mls Lorazepam (Ativan) 1 mg PO Q4H PRN PRN Reason: ASE >=9 Methylprednisolone Sodium Succinate (Solu-Medrol) 20 mg IVP Q8HR [facility] Last Admin: 04/14/18 20:35 Dose: 20 mg Ondansetron HCl (Zofran Odt) 4 mg PO Q6H PRN PRN Reason: Nausea/Vomiting Ondansetron HCl (Zofran) 4 mg IVP Q6H PRN PRN Reason: Nausea/Vomiting Senna/Docusate Sodium (Senokot S) 2 tab PO BID PRN PRN Reason: Constipation Sodium Chloride (Flush - Normal Saline) 10 ml IVF Q12HR [facility] Last Admin: 04/14/18 20:37 Dose: 10 ml Sodium Chloride (Flush - Normal Saline) 10 ml IVF PRN PRN PRN Reason: Saline Flush Thiamine HCl (Thiamine) 100 mg PO DAILY [facility] Last Admin: 04/14/18 08:28 Dose: 100 mg
[2018-04-15] MEDS: guaiFENesin ER 600 MG TAB PO SCH (08:52)
[2018-04-15] MEDS: Famotidine 20 MG TAB PO SCH (08:52)
[2018-04-15] MEDS: Amlodipine 5 MG TAB PO SCH (08:52)
[2018-04-15] MEDS: Cyanocobalamin (Vitamin B-12) 1,000 MCG TAB PO SCH (08:52)
[2018-04-15] MEDS: Hydrochlorothiazide 25 MG TAB PO SCH (08:52)
[2018-04-15] MEDS: Doxycycline 100 MG CAP PO SCH (08:52)
[2018-04-15] MEDS: Folic Acid 1 MG TAB PO SCH (08:56)
[2018-04-15] MEDS: Acetaminophen 325 MG TAB PO PRN (08:56)
[2018-04-15] MEDS ORDERED: Azithromycin 250 MG TAB PO SCH (09:00)
[2018-04-15] MEDS ORDERED: guaiFENesin/Codeine Phosphate 200 mg/20 mg 10 ml UD Cup PO PRN (10:48)
[2018-04-15 11:17] VITALS: BP 136/87; TEMP 97.6
--- NOTE | 2018-04-16 10:17 | DIS ---
DATE OF ADMISSION: 04/12/2018 DATE OF DISCHARGE: 04/15/2018 DISCHARGE DISPOSITION: Home. FOLLOWUP: 1. Follow up with primary care physician at [facility] in 1 week. 2. Follow up with Pulmonology as outpatient. The patient was seen and examined on the day of discharge. Denies any new complaints. Shortness of breath and wheezing are significantly improved. DISCHARGE MEDICATION: 1. Azithromycin 500 mg daily for next three days. 2. Prednisone taper. 3. Thiamine daily. 4. Folic acid daily. All other home medications were left unchanged. BRIEF HOSPITAL COURSE: The patient is a 57-year-old male with COPD with recent exacerbation, presented to the emergency room with worsening shortness of breath along with wheezing of 2 to 3 days duration. Please refer to the history and physical for further details. The patient was admitted to the hospital with a diagnosis of acute hypoxic respiratory failure secondary to COPD exacerbation. He was placed on oxygen, steroids, antibiotics, nebulizer treatment with good improvement. He is currently room air and is ambulating in the hallway without any oxygen desaturation. Steroids and antibiotics have been changed to oral. He appears stable for discharge. FINAL DIAGNOSES: 1. Acute hypoxic respiratory failure secondary to chronic obstructive pulmonary disease exacerbation. 2. Hypertension. 3. Chronic alcohol use. 4. Former smoker. 5. Mild hyponatremia. 6. Slightly abnormal LFTs of unclear etiology. 7. Mild chronic anemia macrocytic, probably secondary to alcoholism. PLAN: Plan of care was discussed with the patient in detail. He stated understanding. DIAGNOSTIC TESTS: Blood cultures negative. Influenza testing negative. WBC was 17.1 on admission, next day was 12.3. Job ID: [id number]
== END 2018-04-15 17:44 | disposition home or self-care (01) | DRG 189 ==
LOC: ERS 20:26 → T4-A 04-12 02:49
PROVIDERS: ADMIT Internal Medicine; ATTEND Internal Medicine
DX: J96.01 Acute respiratory failure with hypoxia (principal); J44.1 Chronic obstructive pulmonary disease with (acute) exacerbation; E87.1 Hypo-osmolality and hyponatremia; I10 Essential (primary) hypertension; D53.9 Nutritional anemia, unspecified; F10.20 Alcohol dependence, uncomplicated; R94.5 Abnormal results of liver function studies; Z87.891 Personal history of nicotine dependence; Z88.6 Allergy status to analgesic agent; Z88.1 Allergy status to other antibiotic agents; Z79.899 Other long term (current) drug therapy
CPT/HCPCS: 36415; 71045; 80048; 80053; 81003; 82550; 82553; 82805; 83605; 83690; 83735; 83880; 84484; 85025; 87040; 87804; 93005; 94640; 94660; 94760; 96365; 96366; 96375; J0456; J1100; J1650; J1956; J2920; J7050; J7611; J7620

== ENCOUNTER 2018-05-30 20:24 | Emergency (ER) | payer SELFPAY ==
[2018-05-30 20:56] LABS: #Basophils 0.1 thou/uL (0.0-0.2); #Eosinphils 0.2 thou/uL (0.0-0.7); #Lymphocytes 4.2 thou/uL (1.20-3.40); #Monocytes 0.7 thou/uL (0.11-0.59); #Neutrophils 3.5 thou/uL (1.40-6.50); %Basophils 1.5 % (0.0-1.0); %Eosinophils 2.3 % (0.0-10.0); %Lymphocytes 48.6 % (21.0-51.0); %Neutrophils 39.7 % (42.0-75.0); Hemoglobin 15.2 g/dL (14.0-18.0); Mean Corpuscular Hemoglobin 33.9 pg (27.0-31.0); Mean Platelet Volume 7.4 fL (7.4-10.4); Platelet Count 263 thou/uL (130-400); RBC Distribution Width 12.4 % (11.5-14.5); Red Blood Cell (RBC) Count 4.47 mill/uL (4.70-6.10); White Blood Cell (WBC) Count 8.7 thou/uL (4.8-10.8)
--- NOTE | 2018-05-30 21:17 | RAD ---
CHEST ONE VIEW 05/30/18 COMPARISON: 04/11/18 HISTORY: Shortness of breath. FINDINGS: Normal cardiac silhouette. Pulmonary vessels and hilum are normal. Costophrenic angles are clear. No masses or consolidation. Chronic changes in the right lung base. No pneumonia or acute osseous abnorm alities. IMPRESSION: No acute cardiopulmonary process. Chronic changes in the right lung base. POS: PPP
[2018-05-30 21:19] LABS: ALT (SGPT) 102 U/L (8-55); AST (SGOT) 114 U/L (5-34); Albumin 4.2 g/dL (3.5-5.0); Alkaline Phosphatase 100 U/L (40-150); Anion Gap 15 mmol/L (10-20); BUN (Urea Nitrogen) 7 mg/dL (8.4-25.7); Bilirubin, Total 0.4 mg/dL (0.2-1.2); CK (CPK) 67 U/L (30-200); Calc. Creatinine Clearance 0 mL/min (70-130); Carbon Dioxide 22 mmol/L (22-29); Chloride 97 mmol/L (98-107); Estimated GFR-MDRD Greater than 90; Glucose 103 mg/dL (70-105); Lipase 56 U/L (8-78); Potassium 4.2 mmol/L (3.5-5.1); Protein, Total 7.2 g/dL (6.0-8.3); Sodium 130 mmol/L (136-145)
[2018-05-30] MEDS ORDERED: Albuterol Sulfate 2.5 mg/3 ml Neb ONE (21:22)
== END 2018-05-30 22:35 | disposition home or self-care (01) ==
LOC: ERS 20:24
DX: J20.9 Acute bronchitis, unspecified (principal); J44.1 Chronic obstructive pulmonary disease with (acute) exacerbation; I10 Essential (primary) hypertension; Z87.891 Personal history of nicotine dependence; Z79.899 Other long term (current) drug therapy; Z79.51 Long term (current) use of inhaled steroids
CPT/HCPCS: 36415; 71045; 80053; 82550; 83690; 83880; 84484; 85025; 87804; 93005; 94640; J7611

== ENCOUNTER 2018-06-25 20:05 | Observation (INO) | payer SELFPAY ==
[2018-06-25] MEDS ORDERED: Albuterol Sulfate 2.5 mg/3 ml Neb ONE (20:40)
[2018-06-25] MEDS ORDERED: Bacitracin Zinc 1 Packet ONE (21:03)
[2018-06-25 21:10] LABS: #Basophils 0.1 thou/uL (0.0-0.2); #Eosinphils 0.4 thou/uL (0.0-0.7); #Monocytes 0.5 thou/uL (0.11-0.59); #Neutrophils 2.8 thou/uL (1.40-6.50); %Basophils 1.7 % (0.0-1.0); %Eosinophils 5.3 % (0.0-10.0); %Lymphocytes 44.4 % (21.0-51.0); %Monocytes 7.4 % (0.0-10.0); %Neutrophils 41.1 % (42.0-75.0); Hemoglobin 14.3 g/dL (14.0-18.0); Mean Corpuscular HGB CONC 33.7 g/dL (32.0-36.0); Mean Corpuscular Hemoglobin 34.2 pg (27.0-31.0); Mean Platelet Volume 7.3 fL (7.4-10.4); Platelet Count 274 thou/uL (130-400); RBC Distribution Width 11.4 % (11.5-14.5); Red Blood Cell (RBC) Count 4.19 mill/uL (4.70-6.10); White Blood Cell (WBC) Count 6.8 thou/uL (4.8-10.8)
--- NOTE | 2018-06-25 21:17 | RAD ---
CHEST ONE VIEW: 06/25/18 INDICATION: Dyspnea. COMPARISON: Prior exam dated 05/30/18. FINDINGS: There is bibasilar air space opacity and small right and tiny left pleural effusion. No pneumothorax is evident. IMPRESSION: Bibasilar air space opacity with bilateral pleural effusions, right greater than left. POS: BH
[2018-06-25 21:24] LABS: ALT (SGPT) 72 U/L (8-55); AST (SGOT) 112 U/L (5-34); Alkaline Phosphatase 118 U/L (40-150); Anion Gap 16 mmol/L (10-20); BUN (Urea Nitrogen) 6 mg/dL (8.4-25.7); Bilirubin, Total 0.5 mg/dL (0.2-1.2); Calc. Creatinine Clearance 0 mL/min (70-130); Calcium 9.1 mg/dL (7.8-10.44); Carbon Dioxide 22 mmol/L (22-29); Chloride 94 mmol/L (98-107); Estimated GFR-MDRD Greater than 90; Globulin 3.1 g/dL (2.4-3.5); Glucose 112 mg/dL (70-105); Potassium 3.9 mmol/L (3.5-5.1); Protein, Total 7.1 g/dL (6.0-8.3); Sodium 128 mmol/L (136-145)
[2018-06-25] MEDS ORDERED: Mag-Al 1200 mg/1200 mg/30 ML UDCUP ONE (22:11)
[2018-06-25] MEDS ORDERED: Lidocaine Viscous Sol 2% 15 ml UD Cup ONE (22:11)
[2018-06-26] MEDS ORDERED: Ondansetron PF 4 MG/2 ML Vial IVP PRN (03:28)
[2018-06-26] MEDS ORDERED: Acetaminophen 325 MG TAB PO PRN (03:28)
[2018-06-26] MEDS ORDERED: Ondansetron ODT 4 MG TAB SL PRN (03:28)
[2018-06-26 03:29] VITALS: BMI 24.9
[2018-06-26] MEDS ORDERED: Albuterol Sulfate 2.5 mg/3 ml Neb NEB PRN (03:29)
[2018-06-26] MEDS ORDERED: Amlodipine 10 MG TAB PO SCH (09:30)
[2018-06-26] MEDS ORDERED: Hydrochlorothiazide 25 MG TAB PO SCH (09:30)
[2018-06-26] MEDS ORDERED: Bacteriostatic Water 30 ML VIAL FS PRN (10:11)
[2018-06-26] MEDS: methylPREDNISolone Sod Succ 40 MG VIAL IVP SCH ×3 (10:29→23:10)
[2018-06-26 10:39] LABS: Troponin I Less than 0.010 ng/mL (< 0.028)
[2018-06-26] MEDS ORDERED: Diazepam 5 MG TAB PO PRN (11:01)
[2018-06-26] MEDS ORDERED: Diazepam 5 MG TAB PO SCH (11:15)
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
[2018-06-26] MEDS: guaiFENesin ER 600 MG TAB PO SCH (20:23)
[2018-06-26] MEDS: Famotidine 20 MG TAB PO SCH (20:23)
[2018-06-26] MEDS ORDERED: Famotidine 20 MG TAB PO SCH (21:00)
[2018-06-27] MEDS ORDERED: Diazepam 5 MG TAB PO PRN (04:00)
[2018-06-27] MEDS: methylPREDNISolone Sod Succ 40 MG VIAL IVP SCH ×3 (05:20→16:48)
[2018-06-27 06:49] LABS: #Lymphocytes 0.4 thou/uL (1.20-3.40); #Monocytes 0.2 thou/uL (0.11-0.59); #Neutrophils 6.2 thou/uL (1.40-6.50); %Basophils 0.6 % (0.0-1.0); %Eosinophils 0.1 % (0.0-10.0); %Lymphocytes 6.3 % (21.0-51.0); %Monocytes 3.4 % (0.0-10.0); %Neutrophils 89.6 % (42.0-75.0); Hemoglobin 14.2 g/dL (14.0-18.0); Mean Corpuscular HGB CONC 33.2 g/dL (32.0-36.0); Mean Corpuscular Hemoglobin 33.3 pg (27.0-31.0); Mean Platelet Volume 7.4 fL (7.4-10.4); Platelet Count 258 thou/uL (130-400); RBC Distribution Width 11.6 % (11.5-14.5); Red Blood Cell (RBC) Count 4.28 mill/uL (4.70-6.10); White Blood Cell (WBC) Count 6.9 thou/uL (4.8-10.8)
[2018-06-27 07:09] LABS: Anion Gap 14 mmol/L (10-20); BUN (Urea Nitrogen) 14 mg/dL (8.4-25.7); Calc. Creatinine Clearance 118 mL/min (70-130); Calcium 9.5 mg/dL (7.8-10.44); Carbon Dioxide 27 mmol/L (22-29); Chloride 91 mmol/L (98-107); Estimated GFR-MDRD Greater than 90; Glucose 169 mg/dL (70-105); Potassium 3.8 mmol/L (3.5-5.1); Sodium 128 mmol/L (136-145)
[2018-06-27] MEDS: Cyanocobalamin (Vitamin B-12) 1,000 MCG TAB PO SCH (08:08)
[2018-06-27] MEDS: Folic Acid 1 MG TAB PO SCH (08:08)
[2018-06-27] MEDS: guaiFENesin ER 600 MG TAB PO SCH ×2 (08:08→20:26)
[2018-06-27] MEDS: Multivitamin W/ Minerals 1 TAB PO SCH (08:08)
[2018-06-27] MEDS: Hydrochlorothiazide 25 MG TAB PO SCH (08:08)
[2018-06-27] MEDS: Famotidine 20 MG TAB PO SCH ×2 (08:08→20:26)
[2018-06-27] MEDS: Amlodipine 10 MG TAB PO SCH (08:08)
[2018-06-27] MEDS: Thiamine 100 MG TAB PO SCH (08:08)
[2018-06-27] MEDS: Magnesium Oxide 400 MG TAB PO SCH (08:08)
[2018-06-27] MEDS ORDERED: guaiFENesin ER 600 MG TAB PO SCH (12:00)
[2018-06-27] MEDS: Acetylcysteine 20% 200 MG/ML 30 ML VIAL INH SCH ×3 (14:29→23:55)
--- NOTE | 2018-06-27 14:38 | PDOC.PN ---
- Subjective Encounter Start Date: 06/27/18 Encounter Start Time: 08:00 Pt seen for followup re: acute hypoxic respiratory failure. c/o cough, no sputum. Says he feels better. - Objective MAR Reviewed: Yes Vital Signs & Weight: Vital Signs (12 hours) Temp Pulse Resp BP BP Pulse Ox 06/27/18 14:27 88 24 H 06/27/18 12:00 122/76 06/27/18 11:41 97.9 F 79 20 122/76 100 06/27/18 11:40 80 20 06/27/18 08:25 98 06/27/18 08:20 73 16 98 06/27/18 08:08 73 143/83 H 06/27/18 08:00 148/88 H 06/27/18 07:46 97.9 F 73 22 H 143/83 H 98 Weight Admit Weight 189 lb Weight 189 lb I&O: 06/26/18 06/27/18 06/28/18 06:59 06:59 06:59 Intake Total 480 800 480 Output Total 550 Balance -70 800 480 Result Diagrams: 06/27/18 06:17 06/27/18 06:17 Additional Labs: labs reviewed by me Phys Exam - Physical Examination Constitutional: NAD HEENT: moist MMs, sclera anicteric, oral pharynx no lesions, 2+ tonsils Neck: no nodes, no JVD, supple, full ROM Respiratory: wheezing present Cardiovascular: RRR, no rub S1, s2 Gastrointestinal: soft, non-tender, no distention, positive bowel sounds Neurological: moves all 4 limbs Psychiatric: normal affect, A&O x 3 Dx/Plan (1) Acute respiratory failure with hypoxia Code(s): J96.01 - ACUTE RESPIRATORY FAILURE WITH HYPOXIA Status: Acute Comment: Improving, try to wean off of supplemental oxygen (2) COPD exacerbation Code(s): J44.1 - CHRONIC OBSTRUCTIVE PULMONARY DISEASE W (ACUTE) EXACERBATION Status: Acute Comment: continue oxygen PRN, steroids, bronchodilators and antibiotics (3) Chronic alcohol use Code(s): Z72.89 - OTHER PROBLEMS RELATED TO LIFESTYLE Status: Chronic Comment: continue ASE protocol (4) Hypertension Code(s): I10 - ESSENTIAL (PRIMARY) HYPERTENSION Status: Chronic Qualifiers: Comment: controlled (5) Hyponatremia Code(s): E87.1 - HYPO-OSMOLALITY AND HYPONATREMIA Status: Chronic Comment: stable - Plan * . Review of Systems - Review of Systems Constitutional: negative: fever, chills, sweats, weakness, malaise Respiratory: Cough, Dry, Wheezing. negative: Shortness of Breath, Hemoptysis, SOB with Excertion, Pleuritic Pain, Sputum Cardiovascular: negative: chest pain, palpitations, orthopnea, paroxysmal nocturnal dyspnea, edema, light headedness Gastrointestinal: negative: Nausea, Vomiting, Abdominal Pain, Diarrhea, Constipation, Melena, Hematochezia Skin: negative: Rash, Lesions, Landry, Bruising - Medications/Allergies Allergies/Adverse Reactions: Allergies Allergy/AdvReac Type Severity Reaction Status Date / Time aspirin Allergy Hives Verified 06/26/18 03:27 ceftriaxone sodium Allergy Hives Verified 06/26/18 03:27 [From Rocephin] Medications: Current Medications Acetylcysteine (Mucomyst 20%) 600 mg INH [id number] [facility] Last Admin: 06/27/18 14:29 Dose: 600 mg Albuterol/Ipratropium (Duoneb) 3 ml NEB [id number] [facility] Last Admin: 06/27/18 14:27 Dose: 3 ml Amlodipine Besylate (Norvasc) 10 mg PO DAILY [facility] Last Admin: 06/27/18 08:08 Dose: 10 mg Cyanocobalamin (Vitamin B-12) 1,000 mcg PO DAILY [facility] Last Admin: 06/27/18 08:08 Dose: 1,000 mcg Diazepam (Valium) 5 mg PO Q4H PRN PRN Reason: FOR ASE 10 OR GREATER Enoxaparin Sodium (Lovenox) 40 mg SC 0900 [facility] Famotidine (Pepcid) 20 mg PO BID [facility] Last Admin: 06/27/18 08:08 Dose: 20 mg Folic Acid (Folvite) 1 mg PO DAILY [facility] Last Admin: 06/27/18 08:08 Dose: 1 mg Guaifenesin (Mucinex) 1,200 mg PO Q12HR [facility] Hydrochlorothiazide (Hydrochlorothiazide) 25 mg PO DAILY [facility] Last Admin: 06/27/18 08:08 Dose: 25 mg Levofloxacin 500 mg/ Device 100 mls @ 100 mls/hr IVPB Q24HR [facility] Last Admin: 06/27/18 11:09 Dose: 100 mls Iron/Minerals/Multivitamins (Theragran M) 1 tab PO DAILY [facility] Last Admin: 06/27/18 08:08 Dose: 1 tab Magnesium Oxide (Magnesium Oxide) 400 mg PO DAILY [facility] Last Admin: 06/27/18 08:08 Dose: 400 mg Methylprednisolone Sodium Succinate (Solu-Medrol) 40 mg IVP Q6HR [facility] Last Admin: 06/27/18 11:09 Dose: 40 mg Sodium Chloride (Flush - Normal Saline) 10 ml IVF Q12HR [facility] Last Admin: 06/27/18 08:08 Dose: 10 ml Sodium Chloride (Flush - Normal Saline) 10 ml IVF PRN PRN PRN Reason: Saline Flush Sterile Water (Bacteriostatic Water) 1 ml FS PRN PRN PRN Reason: RECONSTITUTION Thiamine HCl (Thiamine) 100 mg PO DAILY [facility] Last Admin: 06/27/18 08:08 Dose: 100 mg
[2018-06-28] MEDS: methylPREDNISolone Sod Succ 40 MG VIAL IVP SCH ×3 (00:32→11:06)
[2018-06-28] MEDS: Amlodipine 10 MG TAB PO SCH (07:37)
[2018-06-28] MEDS: guaiFENesin ER 600 MG TAB PO SCH (07:37)
[2018-06-28] MEDS: Folic Acid 1 MG TAB PO SCH (07:37)
[2018-06-28] MEDS: Famotidine 20 MG TAB PO SCH (07:37)
[2018-06-28] MEDS: Cyanocobalamin (Vitamin B-12) 1,000 MCG TAB PO SCH (07:37)
[2018-06-28] MEDS: Thiamine 100 MG TAB PO SCH (07:38)
[2018-06-28] MEDS: Magnesium Oxide 400 MG TAB PO SCH (07:38)
[2018-06-28] MEDS: Hydrochlorothiazide 25 MG TAB PO SCH (07:38)
[2018-06-28] MEDS: Multivitamin W/ Minerals 1 TAB PO SCH (07:38)
[2018-06-28 07:53] VITALS: TEMP 97.8
[2018-06-28] MEDS: Acetylcysteine 20% 200 MG/ML 30 ML VIAL INH SCH (07:57)
[2018-06-28] MEDS ORDERED: Enoxaparin Sodium 40 MG/0.4 ML SYRINGE SC SCH (09:00)
[2018-06-28 11:42] VITALS: BP 131/80
--- NOTE | 2018-06-28 21:37 | DIS ---
DATE OF ADMISSION: 06/26/2018 DATE OF DISCHARGE: 06/28/2018 PRIMARY CARE PROVIDER: Martha Simpson. DISCHARGE DIAGNOSES: 1. Acute hypoxic respiratory failure. 2. Chronic obstructive pulmonary disease exacerbation. 3. Hyponatremia. CONDITION OF PATIENT ON THE DAY OF DISCHARGE: Stable. I assessed Mr. Milian on the day of discharge. He denies any chest pain or shortness of breath. Vital signs are stable. S1 and S2 are heard, regular. Lungs are clear to auscultation bilaterally. DISCHARGE MEDICATIONS: 1. ProAir HFA 2 puffs every 4 hours as needed. 2. Mucinex 600 mg 2 times a day. 3. Norvasc 10 mg daily. 4. Vitamin B12 of 1000 mcg daily. 5. Pepcid 20 mg daily. 6. Folic acid 1 mg every 24 hours. 7. DuoNebs 3 mL 4 times a day as needed. 8. Levofloxacin 500 mg daily for 7 days. 9. Prednisone taper. 10. Thiamine 100 mg daily. 11. Hydrochlorothiazide has been discontinued. HOSPITAL COURSE: Mr. Milian is a pleasant 57-year-old gentleman, who was admitted to [facility] on June 26, 2018, for COPD exacerbation causing respiratory failure. He was also hyponatremic, likely secondary to a combination of beer potomania and thiazide diuretic use. He improved with oxygen, steroids, bronchodilators, and antibiotics. He is being discharged home in a stable condition. On June 27, Mr. Milian had sodium 128, potassium 3.8, and creatinine 0.85. White count 6900, hemoglobin 14.2, and platelet count 258,000. Many thanks for allowing me to participate in your patient's care. Please feel free to contact me with any questions or concerns. DISCHARGE DESTINATION: Home. Job ID: [id number]
== END 2018-06-28 12:15 | disposition home or self-care (01) ==
LOC: ERS 20:05 → T4-A 06-26 03:20
PROVIDERS: ADMIT Internal Medicine; ATTEND Internal Medicine
DX: J44.1 Chronic obstructive pulmonary disease with (acute) exacerbation (principal); J96.21 Acute and chronic respiratory failure with hypoxia; E87.1 Hypo-osmolality and hyponatremia; F10.10 Alcohol abuse, uncomplicated; I10 Essential (primary) hypertension; R94.5 Abnormal results of liver function studies; R07.9 Chest pain, unspecified; Z87.891 Personal history of nicotine dependence; Z79.899 Other long term (current) drug therapy; Z88.1 Allergy status to other antibiotic agents; Z88.8 Allergy status to other drugs, medicaments and biological substances
CPT/HCPCS: 36415; 71045; 80048; 80053; 84484; 85025; 93005; 94640; 94760; 96365; 96366; 96372; 96375; 96376; G0378; J1650; J1956; J2920; J3475; J7050; J7608; J7611; J7620

== ENCOUNTER 2018-07-28 16:47 | Emergency (ER) | payer SELFPAY ==
[2018-07-28 19:07] LABS: #Basophils 0.2 thou/uL (0.0-0.2); #Eosinphils 0.5 thou/uL (0.0-0.7); #Lymphocytes 2.2 thou/uL (1.20-3.40); #Monocytes 0.8 thou/uL (0.11-0.59); #Neutrophils 3.4 thou/uL (1.40-6.50); %Basophils 2.2 % (0.0-1.0); %Eosinophils 6.4 % (0.0-10.0); %Lymphocytes 30.8 % (21.0-51.0); %Monocytes 11.3 % (0.0-10.0); %Neutrophils 49.2 % (42.0-75.0); Hemoglobin 15.9 g/dL (14.0-18.0); Mean Corpuscular HGB CONC 33.4 g/dL (32.0-36.0); Mean Corpuscular Hemoglobin 33.2 pg (27.0-31.0); Mean Corpuscular Volume 99.4 fL (78.0-98.0); Mean Platelet Volume 7.9 fL (7.4-10.4); Platelet Count 246 thou/uL (130-400); RBC Distribution Width 11.6 % (11.5-14.5); Red Blood Cell (RBC) Count 4.79 mill/uL (4.70-6.10)
--- NOTE | 2018-07-28 19:24 | RAD ---
Frontal radiograph chest: 07/28/2018 COMPARISON: 06/25/2018 HISTORY: COPD, shortness of breath FINDINGS: The lungs are hyperinflated and there is increased linear interstitial density consistent w ith the provided history of COPD. These findings are most striking within the right lung base where there is prominent pulmonary parenchymal cystic change noted. There is no definite pneumothorax, loba r consolidation, or alveolar edema appreciated. The degree of cystic change within the right lung base makes exclusion of a loculated pneumothorax in the right base difficult. If there is localized p ain, CT advised. IMPRESSION: Chronic findings as detailed above. Of note, there is prominent cystic change within the right lung base. Please see above discussion.
[2018-07-28 19:37] LABS: ALT (SGPT) 115 U/L (8-55); AST (SGOT) 102 U/L (5-34); Albumin 4.6 g/dL (3.5-5.0); Alkaline Phosphatase 110 U/L (40-150); Anion Gap 17 mmol/L (10-20); BUN (Urea Nitrogen) 6 mg/dL (8.4-25.7); Bilirubin, Total 0.6 mg/dL (0.2-1.2); Calc. Creatinine Clearance 0 mL/min (70-130); Calcium 9.7 mg/dL (7.8-10.44); Carbon Dioxide 22 mmol/L (22-29); Chloride 96 mmol/L (98-107); Estimated GFR-MDRD Greater than 90; Globulin 3.1 g/dL (2.4-3.5); Glucose 88 mg/dL (70-105); Protein, Total 7.7 g/dL (6.0-8.3); Sodium 131 mmol/L (136-145)
[2018-07-28] MEDS ORDERED: Albuterol Sulfate 2.5 mg/3 ml Neb ONE (21:15)
[2018-07-28] MEDS ORDERED: Dexamethasone 4 mg/ml Vial ONE (21:25)
[2018-07-28] MEDS ORDERED: Magnesium 2 GM/50 ML BAG (IN WATER) ONE (21:25)
[2018-07-28 21:41] LABS: Actual Bicarbonate (HCO3a) 22.8 mEq/L (22-28); Analyzer IN Cardio ER; Base Excess (BEa) -1.4 mEq/L (-2.0 to +3.0); CO2 Tension 37.1 mmHg (35.0-45.0); Calcium, Ionized 1.18 mmol/L (1.12-1.30); Carboxyhemoglobin (COHb) 0.7 gm% (0.0-3.0); Hemoglobin (Hb) 16.6 g/dL (14.0-18.0); O2 Tension (PaO2) 67.9 mmHg (80.0-100.0); Potassium - ABG Lab 4.22 mmol/L (3.70-5.30); pH, Arterial 7.41 (7.35-7.45)
[2018-07-28 21:51] LABS: Puncture Site LRA
[2018-07-28 21:52] LABS: ALV-art Gradient 35.455 (0-20)
== END 2018-07-28 23:11 | disposition home or self-care (01) ==
LOC: ERS 16:47
DX: J44.1 Chronic obstructive pulmonary disease with (acute) exacerbation (principal); I10 Essential (primary) hypertension; Z87.891 Personal history of nicotine dependence; Z79.899 Other long term (current) drug therapy; Z79.51 Long term (current) use of inhaled steroids
CPT/HCPCS: 36415; 71045; 80053; 82805; 85025; 93005; 94640; 96365; 96375; J1100; J3475; J7611; J7620

== ENCOUNTER 2018-08-01 14:24 | Inpatient (IN) | payer SELFPAY ==
--- NOTE | 2018-08-01 14:43 | RAD ---
Portable chest: INDICATIONS: Dyspnea COMPARISON: 07/28/2018 Parenchymal stranding is again seen and is chronic. There is evidence of new patchy atelectasis or in filtrate in the left lung base. No other change. IMPRESSION: Question new patchy infiltrate or atelectasis in the left lung base..
[2018-08-01 15:25] LABS: #Basophils 0.1 thou/uL (0.0-0.2); #Eosinphils 0.1 thou/uL (0.0-0.7); #Lymphocytes 1.3 thou/uL (1.20-3.40); #Monocytes 1.1 thou/uL (0.11-0.59); #Neutrophils 8.3 thou/uL (1.40-6.50); %Basophils 0.8 % (0.0-1.0); %Eosinophils 0.7 % (0.0-10.0); %Lymphocytes 12.2 % (21.0-51.0); %Monocytes 9.8 % (0.0-10.0); %Neutrophils 76.5 % (42.0-75.0); Mean Corpuscular HGB CONC 32.9 g/dL (32.0-36.0); Mean Corpuscular Hemoglobin 32.4 pg (27.0-31.0); Mean Corpuscular Volume 98.6 fL (78.0-98.0); Mean Platelet Volume 8.2 fL (7.4-10.4); Platelet Count 213 thou/uL (130-400); RBC Distribution Width 11.5 % (11.5-14.5); Red Blood Cell (RBC) Count 4.94 mill/uL (4.70-6.10); White Blood Cell (WBC) Count 10.9 thou/uL (4.8-10.8)
[2018-08-01] MEDS ORDERED: methylPREDNISolone Sod Succ/PF 125 MG/2 ML VIAL ONE (15:45)
[2018-08-01] MEDS ORDERED: Magnesium 2 GM/50 ML BAG (IN WATER) ONE (15:45)
[2018-08-01 15:50] LABS: ALT (SGPT) 117 U/L (8-55); AST (SGOT) 70 U/L (5-34); Albumin 4.6 g/dL (3.5-5.0); Alkaline Phosphatase 101 U/L (40-150); Anion Gap 15 mmol/L (10-20); BUN (Urea Nitrogen) 9 mg/dL (8.4-25.7); Bilirubin, Total 1.2 mg/dL (0.2-1.2); Calc. Creatinine Clearance 0 mL/min (70-130); Carbon Dioxide 28 mmol/L (22-29); Chloride 95 mmol/L (98-107); Estimated GFR-MDRD Greater than 90; Glucose 110 mg/dL (70-105); Potassium 4.2 mmol/L (3.5-5.1); Protein, Total 7.6 g/dL (6.0-8.3); Sodium 134 mmol/L (136-145)
[2018-08-01] MEDS ORDERED: Senokot S 8.6-50 MG TAB PO PRN (18:02)
[2018-08-01 19:19] LABS: Lactic Acid 1.8 mmol/L (0.5-2.2)
[2018-08-01 19:35] VITALS: BMI 25.2
[2018-08-01] MEDS: methylPREDNISolone Sod Succ 40 MG VIAL IVP SCH ×2 (19:38→23:53)
[2018-08-01] MEDS: Multivitamins, Adult 10 ML, Folic Acid 1 MG, Thiamine HCl 100 MG in Dextrose 5 %-0.45 %... IV SCH (20:01)
[2018-08-01] MEDS: Famotidine 20 MG TAB PO SCH (20:04)
[2018-08-01] MEDS: Lorazepam 1 MG TAB PO PRN (23:58)
[2018-08-01] MEDS: HYDROcodone/Acetaminophen 5/325 mg Tablet PO PRN (23:58)
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
[2018-08-02] MEDS: methylPREDNISolone Sod Succ 40 MG VIAL IVP SCH ×3 (05:34→17:28)
[2018-08-02] MEDS: HYDROcodone/Acetaminophen 5/325 mg Tablet PO PRN (05:36)
[2018-08-02 06:31] LABS: #Lymphocytes 0.5 thou/uL (1.20-3.40); #Monocytes 0.3 thou/uL (0.11-0.59); %Eosinophils 0.3 % (0.0-10.0); %Lymphocytes 6.4 % (21.0-51.0); %Monocytes 3.3 % (0.0-10.0); %Neutrophils 90.1 % (42.0-75.0); Hemoglobin 15.2 g/dL (14.0-18.0); Mean Corpuscular HGB CONC 31.5 g/dL (32.0-36.0); Mean Corpuscular Hemoglobin 32.5 pg (27.0-31.0); Mean Platelet Volume 8.6 fL (7.4-10.4); Platelet Count 202 thou/uL (130-400); RBC Distribution Width 11.6 % (11.5-14.5); Red Blood Cell (RBC) Count 4.68 mill/uL (4.70-6.10); White Blood Cell (WBC) Count 7.8 thou/uL (4.8-10.8)
[2018-08-02 06:58] LABS: ALT (SGPT) 85 U/L (8-55); AST (SGOT) 33 U/L (5-34); Alkaline Phosphatase 86 U/L (40-150); Anion Gap 14 mmol/L (10-20); BUN (Urea Nitrogen) 9 mg/dL (8.4-25.7); Bilirubin, Total 0.7 mg/dL (0.2-1.2); Calc. Creatinine Clearance 119 mL/min (70-130); Calcium 9.4 mg/dL (7.8-10.44); Carbon Dioxide 21 mmol/L (22-29); Chloride 99 mmol/L (98-107); Estimated GFR-MDRD Greater than 90; Glucose 148 mg/dL (70-105); Potassium 3.9 mmol/L (3.5-5.1); Sodium 130 mmol/L (136-145)
[2018-08-02] MEDS: Enoxaparin Sodium 40 MG/0.4 ML SYRINGE SC SCH (07:39)
[2018-08-02] MEDS: Famotidine 20 MG TAB PO SCH ×2 (07:40→19:49)
--- NOTE | 2018-08-02 14:12 | PDOC.PN ---
- Subjective Encounter Start Date: 08/02/18 Encounter Start Time: 09:00 Pt seen for followup re: pneumonia. Says he feels slightly better. - Objective Resuscitation Status - Order Detail: 08/01/18 18:02 Resuscitation Status Routine Co-Sign Provider: Resuscitation Status: FULL: Full Resuscitation Discussed with: Patient Additional comments: Daughter will be surrogate decision maker MAR Reviewed: Yes Vital Signs & Weight: Vital Signs (12 hours) Temp Pulse Resp BP BP Pulse Ox 08/02/18 11:42 97.9 F 92 18 130/86 95 08/02/18 11:40 92 16 08/02/18 08:00 97 08/02/18 07:52 97.6 F 84 20 160/93 H 97 08/02/18 07:23 93 L 08/02/18 07:21 81 16 08/02/18 05:22 97.6 F 81 22 H 169/79 H 98 08/02/18 04:00 169/79 H 08/02/18 02:40 80 18 97 Weight Weight 191 lb 2 oz I&O: 08/01/18 08/02/18 08/03/18 06:59 06:59 06:59 Intake Total 2717 720 Output Total 500 400 Balance 2217 320 Result Diagrams: 08/02/18 05:43 08/02/18 05:43 Additional Labs: labs reviewed by me Phys Exam - Physical Examination Constitutional: NAD HEENT: moist MMs, sclera anicteric, oral pharynx no lesions, 2+ tonsils Neck: no nodes, no JVD, supple, full ROM Respiratory: wheezing present Cardiovascular: RRR, no rub S1, S2 Gastrointestinal: soft, non-tender, no distention, positive bowel sounds Neurological: moves all 4 limbs Psychiatric: normal affect, A&O x 3 Dx/Plan (1) Pneumonia Code(s): J18.9 - PNEUMONIA, UNSPECIFIED ORGANISM Status: Acute Comment: continue levofloxacin (2) COPD exacerbation Code(s): J44.1 - CHRONIC OBSTRUCTIVE PULMONARY DISEASE W (ACUTE) EXACERBATION Status: Acute Comment: continue oxygen, steroids, bronchodilators and antibiotics (3) Chronic alcohol use Code(s): Z72.89 - OTHER PROBLEMS RELATED TO LIFESTYLE Status: Chronic Comment: start ASE protocol (4) Hypertension Code(s): I10 - ESSENTIAL (PRIMARY) HYPERTENSION Status: Chronic Qualifiers: Comment: controlled (5) Hyponatremia Code(s): E87.1 - HYPO-OSMOLALITY AND HYPONATREMIA Status: Chronic Comment: sodium 130 today, pt has a h/o chronic hyponatremia - Plan * . Review of Systems - Review of Systems Constitutional: negative: fever, chills, sweats, weakness, malaise Respiratory: Cough, Dry, SOB with Excertion, Wheezing. negative: Shortness of Breath, Hemoptysis, Pleuritic Pain, Sputum Cardiovascular: negative: chest pain, palpitations, orthopnea, paroxysmal nocturnal dyspnea, edema, light headedness Gastrointestinal: negative: Nausea, Vomiting, Abdominal Pain, Diarrhea, Constipation, Melena, Hematochezia Genitourinary: negative: Dysuria, Frequency, Incontinence, Hematuria, Retention - Medications/Allergies Allergies/Adverse Reactions: Allergies Allergy/AdvReac Type Severity Reaction Status Date / Time aspirin Allergy Hives Verified 06/26/18 03:27 ceftriaxone sodium Allergy Hives Verified 06/26/18 03:27 [From Rocephin] Medications: Current Medications Acetaminophen (Tylenol) 650 mg PO Q4H PRN PRN Reason: Headache/Fever/Mild Pain (1-3) Hydrocodone Bitart/Acetaminophen ([place] 5/325) 1 tab PO Q4H PRN PRN Reason: Moderate Pain (4-6) Last Admin: 08/02/18 05:36 Dose: 1 tab Albuterol/Ipratropium (Duoneb) 3 ml NEB [id number] [facility] Last Admin: 08/02/18 11:40 Dose: 3 ml Enoxaparin Sodium (Lovenox) 40 mg SC 0900 [facility] Last Admin: 08/02/18 07:39 Dose: 40 mg Famotidine (Pepcid) 20 mg PO BID [facility] Last Admin: 08/02/18 07:40 Dose: 20 mg Multivitamins 10 ml/ Folic Acid 1 mg/ Thiamine HCl 100 mg / Dextrose/Sodium Chloride 1,011.2 mls @ 75 mls/hr IV Q24HR [facility] Stop: 08/04/18 08:14 Last Admin: 08/01/18 20:01 Dose: 1,011.2 mls Levofloxacin (Levaquin) 750 mg PO 2000 [facility] Lorazepam (Ativan) 1 mg PO Q4H PRN PRN Reason: Anxiety/Agitation Last Admin: 08/01/18 23:58 Dose: 1 mg Methylprednisolone Sodium Succinate (Solu-Medrol) 40 mg IVP Q6HR [facility] Last Admin: 08/02/18 12:05 Dose: 40 mg Senna/Docusate Sodium (Senokot S) 2 tab PO BIDPRN PRN PRN Reason: Constipation Sodium Chloride (Flush - Normal Saline) 10 ml IVF PRN PRN PRN Reason: Saline Flush
[2018-08-02] MEDS: Multivitamins, Adult 10 ML, Folic Acid 1 MG, Thiamine HCl 100 MG in Dextrose 5 %-0.45 %... IV SCH (17:29)
[2018-08-03] MEDS: Lorazepam 1 MG TAB PO PRN ×4 (00:12→20:32)
[2018-08-03] MEDS: HYDROcodone/Acetaminophen 5/325 mg Tablet PO PRN ×3 (00:12→20:31)
[2018-08-03] MEDS: methylPREDNISolone Sod Succ 40 MG VIAL IVP SCH ×4 (00:12→18:26)
[2018-08-03] MEDS: Acetaminophen 325 MG TAB PO PRN ×2 (02:48→08:49)
[2018-08-03 06:12] LABS: #Lymphocytes 0.5 thou/uL (1.20-3.40); #Monocytes 0.5 thou/uL (0.11-0.59); %Eosinophils 0.1 % (0.0-10.0); %Lymphocytes 4.5 % (21.0-51.0); %Monocytes 3.8 % (0.0-10.0); %Neutrophils 91.7 % (42.0-75.0); Hemoglobin 13.7 g/dL (14.0-18.0); Mean Corpuscular HGB CONC 33.3 g/dL (32.0-36.0); Mean Corpuscular Hemoglobin 33.6 pg (27.0-31.0); Mean Platelet Volume 8.2 fL (7.4-10.4); Platelet Count 205 thou/uL (130-400); RBC Distribution Width 11.3 % (11.5-14.5); Red Blood Cell (RBC) Count 4.07 mill/uL (4.70-6.10)
[2018-08-03 06:28] LABS: ALT (SGPT) 64 U/L (8-55); AST (SGOT) 24 U/L (5-34); Albumin 3.7 g/dL (3.5-5.0); Alkaline Phosphatase 69 U/L (40-150); Anion Gap 13 mmol/L (10-20); BUN (Urea Nitrogen) 11 mg/dL (8.4-25.7); Bilirubin, Total 0.4 mg/dL (0.2-1.2); Calc. Creatinine Clearance 127 mL/min (70-130); Carbon Dioxide 22 mmol/L (22-29); Chloride 98 mmol/L (98-107); Estimated GFR-MDRD Greater than 90; Globulin 2.6 g/dL (2.4-3.5); Glucose 162 mg/dL (70-105); Protein, Total 6.3 g/dL (6.0-8.3); Sodium 129 mmol/L (136-145)
[2018-08-03] MEDS: Famotidine 20 MG TAB PO SCH ×2 (08:49→20:32)
[2018-08-03] MEDS: Enoxaparin Sodium 40 MG/0.4 ML SYRINGE SC SCH (08:49)
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
[2018-08-03] MEDS ORDERED: Magnesium 2 GM/NS 0.9% 100 ML 2 GM in Premix Bag 1 BAG IVPB SCH (12:30)
[2018-08-03] MEDS ORDERED: Magnesium 2 GM/50 ML 2 GM in Premix Bag 1 BAG IVPB SCH (12:45)
--- NOTE | 2018-08-03 17:47 | PDOC.PN ---
- Subjective Encounter Start Date: 08/03/18 Encounter Start Time: 09:00 Pt seen for followup re:pneumonia. c/o cough, wheezing, SOBOE. - Objective Resuscitation Status - Order Detail: 08/01/18 18:02 Resuscitation Status Routine Co-Sign Provider: Resuscitation Status: FULL: Full Resuscitation Discussed with: Patient Additional comments: Daughter will be surrogate decision maker MAR Reviewed: Yes Vital Signs & Weight: Vital Signs (12 hours) Temp Pulse Resp BP BP Pulse Ox 08/03/18 16:00 150/97 H 08/03/18 13:00 97.8 F 118 H 24 H 133/75 94 L 08/03/18 12:00 133/75 08/03/18 11:49 98.0 F 116 H 16 133/79 94 L 08/03/18 10:13 95 20 95 08/03/18 08:29 97.9 F 105 H 16 138/87 94 L 08/03/18 08:00 138/87 94 L 08/03/18 06:46 91 18 95 Weight Weight 191 lb 2 oz I&O: 08/02/18 08/03/18 08/04/18 06:59 06:59 06:59 Intake Total 2717 2754 480 Output Total 500 1450 Balance 2217 1304 480 Result Diagrams: 08/03/18 05:55 08/03/18 05:55 EKG Reviewed by me: Yes (Tele: NSR) Phys Exam - Physical Examination Constitutional: NAD HEENT: moist MMs Neck: supple Respiratory: wheezing present Cardiovascular: RRR Gastrointestinal: soft Neurological: moves all 4 limbs Psychiatric: normal affect Dx/Plan (1) Pneumonia Code(s): J18.9 - PNEUMONIA, UNSPECIFIED ORGANISM Status: Acute Comment: slowly improving, continue levofloxacin (2) COPD exacerbation Code(s): J44.1 - CHRONIC OBSTRUCTIVE PULMONARY DISEASE W (ACUTE) EXACERBATION Status: Acute Comment: on oxygen, steroids, bronchodilators and antibiotics. Magnesium added. (3) Chronic alcohol use Code(s): Z72.89 - OTHER PROBLEMS RELATED TO LIFESTYLE Status: Chronic Comment: on ASE protocol (4) Hypertension Code(s): I10 - ESSENTIAL (PRIMARY) HYPERTENSION Status: Chronic Qualifiers: Comment: controlled (5) Hyponatremia Code(s): E87.1 - HYPO-OSMOLALITY AND HYPONATREMIA Status: Chronic Comment: sodium 129 today - Plan continue antibiotics, out of bed/ambulate, DVT proph w/lovenox * . Review of Systems - Review of Systems Respiratory: Cough, Shortness of Breath, SOB with Excertion, Sputum. negative: Dry, Hemoptysis, Pleuritic Pain, Wheezing Cardiovascular: negative: chest pain, palpitations, orthopnea, paroxysmal nocturnal dyspnea, edema, light headedness - Medications/Allergies Allergies/Adverse Reactions: Allergies Allergy/AdvReac Type Severity Reaction Status Date / Time aspirin Allergy Hives Verified 06/26/18 03:27 ceftriaxone sodium Allergy Hives Verified 06/26/18 03:27 [From Rocephin] Medications: Current Medications Acetaminophen (Tylenol) 650 mg PO Q4H PRN PRN Reason: Headache/Fever/Mild Pain (1-3) Last Admin: 08/03/18 08:49 Dose: 650 mg Hydrocodone Bitart/Acetaminophen ([place] 5/325) 1 tab PO Q4H PRN PRN Reason: Moderate Pain (4-6) Last Admin: 08/03/18 13:17 Dose: 1 tab Albuterol/Ipratropium (Duoneb) 3 ml NEB [id number] [facility] Last Admin: 08/03/18 14:19 Dose: 3 ml Enoxaparin Sodium (Lovenox) 40 mg SC 0900 [facility] Last Admin: 08/03/18 08:49 Dose: 40 mg Famotidine (Pepcid) 20 mg PO BID [facility] Last Admin: 08/03/18 08:49 Dose: 20 mg Multivitamins 10 ml/ Folic Acid 1 mg/ Thiamine HCl 100 mg / Dextrose/Sodium Chloride 1,011.2 mls @ 75 mls/hr IV Q24HR [facility] Stop: 08/04/18 08:14 Last Admin: 08/02/18 17:29 Dose: 1,011.2 mls Levofloxacin (Levaquin) 750 mg PO 2000 [facility] Last Admin: 08/02/18 19:50 Dose: 750 mg Lorazepam (Ativan) 1 mg PO Q4H PRN PRN Reason: Anxiety/Agitation Last Admin: 08/03/18 16:39 Dose: 1 mg Methylprednisolone Sodium Succinate (Solu-Medrol) 40 mg IVP Q6HR [facility] Last Admin: 08/03/18 12:31 Dose: 40 mg Mometasone Furoate/Formoterol Fumar (Dulera 200 Mcg/5 Mcg Inhaler) 2 puff INH BID-RT [facility] Senna/Docusate Sodium (Senokot S) 2 tab PO BIDPRN PRN PRN Reason: Constipation Sodium Chloride (Flush - Normal Saline) 10 ml IVF PRN PRN PRN Reason: Saline Flush Last Admin: 08/03/18 13:17 Dose: 10 ml
[2018-08-03] MEDS: Multivitamins, Adult 10 ML, Folic Acid 1 MG, Thiamine HCl 100 MG in Dextrose 5 %-0.45 %... IV SCH (18:26)
[2018-08-03] MEDS: Mometasone/Formoterol 120 PUFF INHALER INH SCH (19:27)
[2018-08-04] MEDS: Lorazepam 1 MG TAB PO PRN ×4 (00:31→21:03)
[2018-08-04] MEDS: methylPREDNISolone Sod Succ 40 MG VIAL IVP SCH ×5 (00:31→23:16)
[2018-08-04] MEDS: HYDROcodone/Acetaminophen 5/325 mg Tablet PO PRN ×2 (06:25→12:28)
[2018-08-04] MEDS: Mometasone/Formoterol 120 PUFF INHALER INH SCH ×2 (06:48→20:32)
[2018-08-04] MEDS: Famotidine 20 MG TAB PO SCH ×2 (09:38→21:03)
[2018-08-04] MEDS: Enoxaparin Sodium 40 MG/0.4 ML SYRINGE SC SCH (09:39)
--- NOTE | 2018-08-04 14:15 | PDOC.PN ---
- Subjective Encounter Start Date: 08/04/18 Encounter Start Time: 09:00 Pt seen for followup re: pneumonia. feels slightly better. has cough and sputum - Objective Resuscitation Status - Order Detail: 08/01/18 18:02 Resuscitation Status Routine Co-Sign Provider: Resuscitation Status: FULL: Full Resuscitation Discussed with: Patient Additional comments: Daughter will be surrogate decision maker MAR Reviewed: Yes Vital Signs & Weight: Vital Signs (12 hours) Temp Pulse Resp BP BP BP Pulse Ox 08/04/18 12:00 97.4 F L 95 20 155/95 H 155/95 H 95 08/04/18 10:37 100 20 95 08/04/18 08:00 97.8 F 100 20 143/75 H 143/75 H 95 08/04/18 06:46 90 20 95 08/04/18 04:00 97.9 F 89 20 163/98 H 163/98 H 95 08/04/18 02:40 94 18 96 Weight Weight 191 lb 2 oz I&O: 08/03/18 08/04/18 08/05/18 06:59 06:59 06:59 Intake Total 2754 5077 400 Output Total 1450 Balance 1304 5077 400 Result Diagrams: 08/03/18 05:55 08/03/18 05:55 Additional Labs: Labs reviewed by me Phys Exam - Physical Examination Constitutional: NAD HEENT: moist MMs Neck: supple Respiratory: clear to auscultation bilateral Cardiovascular: RRR Dx/Plan (1) Pneumonia Code(s): J18.9 - PNEUMONIA, UNSPECIFIED ORGANISM Status: Acute Comment: continue levofloxacin (2) COPD exacerbation Code(s): J44.1 - CHRONIC OBSTRUCTIVE PULMONARY DISEASE W (ACUTE) EXACERBATION Status: Acute Comment: continue oxygen, steroids, bronchodilators and antibiotics. (3) Chronic alcohol use Code(s): Z72.89 - OTHER PROBLEMS RELATED TO LIFESTYLE Status: Chronic Comment: continue ASE protocol (4) Hypertension Code(s): I10 - ESSENTIAL (PRIMARY) HYPERTENSION Status: Chronic Qualifiers: Comment: controlled (5) Hyponatremia Code(s): E87.1 - HYPO-OSMOLALITY AND HYPONATREMIA Status: Chronic Comment: stable - Plan * . Review of Systems - Review of Systems Respiratory: Cough, Sputum. negative: Dry, Shortness of Breath, Hemoptysis, SOB with Excertion, Pleuritic Pain, Wheezing Cardiovascular: negative: chest pain, palpitations, orthopnea, paroxysmal nocturnal dyspnea, edema, light headedness - Medications/Allergies Allergies/Adverse Reactions: Allergies Allergy/AdvReac Type Severity Reaction Status Date / Time aspirin Allergy Hives Verified 06/26/18 03:27 ceftriaxone sodium Allergy Hives Verified 06/26/18 03:27 [From Rocephin] Medications: Current Medications Acetaminophen (Tylenol) 650 mg PO Q4H PRN PRN Reason: Headache/Fever/Mild Pain (1-3) Last Admin: 08/03/18 08:49 Dose: 650 mg Hydrocodone Bitart/Acetaminophen ([place] 5/325) 1 tab PO Q4H PRN PRN Reason: Moderate Pain (4-6) Last Admin: 08/04/18 12:28 Dose: 1 tab Albuterol/Ipratropium (Duoneb) 3 ml NEB [id number] [facility] Last Admin: 08/04/18 10:37 Dose: 3 ml Enoxaparin Sodium (Lovenox) 40 mg SC 0900 [facility] Last Admin: 08/04/18 09:39 Dose: 40 mg Famotidine (Pepcid) 20 mg PO BID [facility] Last Admin: 08/04/18 09:38 Dose: 20 mg Levofloxacin (Levaquin) 750 mg PO 2000 [facility] Last Admin: 08/03/18 20:32 Dose: 750 mg Lorazepam (Ativan) 1 mg PO Q4H PRN PRN Reason: Anxiety/Agitation Last Admin: 08/04/18 12:28 Dose: 1 mg Methylprednisolone Sodium Succinate (Solu-Medrol) 40 mg IVP Q6HR [facility] Last Admin: 08/04/18 12:29 Dose: 40 mg Mometasone Furoate/Formoterol Fumar (Dulera 200 Mcg/5 Mcg Inhaler) 2 puff INH BID-RT [facility] Last Admin: 08/04/18 06:48 Dose: 2 puff Senna/Docusate Sodium (Senokot S) 2 tab PO BIDPRN PRN PRN Reason: Constipation Sodium Chloride (Flush - Normal Saline) 10 ml IVF PRN PRN PRN Reason: Saline Flush Last Admin: 08/04/18 12:31 Dose: 10 ml
[2018-08-05] MEDS: methylPREDNISolone Sod Succ 40 MG VIAL IVP SCH ×2 (05:16→11:53)
[2018-08-05] MEDS: Mometasone/Formoterol 120 PUFF INHALER INH SCH ×2 (06:40→19:24)
[2018-08-05] MEDS: Enoxaparin Sodium 40 MG/0.4 ML SYRINGE SC SCH (09:40)
[2018-08-05] MEDS: HYDROcodone/Acetaminophen 5/325 mg Tablet PO PRN ×2 (09:41→20:52)
[2018-08-05] MEDS: Famotidine 20 MG TAB PO SCH ×2 (09:41→20:51)
[2018-08-05] MEDS: Lorazepam 1 MG TAB PO PRN ×2 (09:42→20:52)
[2018-08-05] MEDS ORDERED: guaiFENesin ER 600 MG TAB PO SCH (11:45)
[2018-08-05] MEDS ORDERED: predniSONE 20 MG TAB PO SCH (15:00)
--- NOTE | 2018-08-05 17:30 | PDOC.PN ---
- Subjective Encounter Start Date: 08/05/18 Encounter Start Time: 08:40 Pt seen for followup re: pneumonia. feels better. Still has a lot of cough, wheezing. - Objective Resuscitation Status - Order Detail: 08/01/18 18:02 Resuscitation Status Routine Co-Sign Provider: Resuscitation Status: FULL: Full Resuscitation Discussed with: Patient Additional comments: Daughter will be surrogate decision maker Vital Signs & Weight: Vital Signs (12 hours) Temp Pulse Resp BP Pulse Ox 08/05/18 14:55 106 H 20 95 08/05/18 11:29 97.8 F 106 H 20 148/82 H 95 08/05/18 10:40 96 20 96 08/05/18 06:38 89 16 97 Weight Weight 191 lb 2 oz I&O: 08/04/18 08/05/18 08/06/18 06:59 06:59 06:59 Intake Total 5077 2140 Output Total 600 Balance 5077 1540 Result Diagrams: 08/03/18 05:55 08/03/18 05:55 Phys Exam - Physical Examination Constitutional: NAD HEENT: moist MMs Neck: no JVD Respiratory: wheezing present Cardiovascular: RRR Gastrointestinal: positive bowel sounds Neurological: moves all 4 limbs Psychiatric: normal affect Dx/Plan (1) Pneumonia Code(s): J18.9 - PNEUMONIA, UNSPECIFIED ORGANISM Status: Acute Comment: on levofloxacin (2) COPD exacerbation Code(s): J44.1 - CHRONIC OBSTRUCTIVE PULMONARY DISEASE W (ACUTE) EXACERBATION Status: Acute Comment: continue oxygen, bronchodilators and antibiotics. Change steroids to oral. (3) Chronic alcohol use Code(s): Z72.89 - OTHER PROBLEMS RELATED TO LIFESTYLE Status: Chronic Comment: continue ASE protocol (4) Hypertension Code(s): I10 - ESSENTIAL (PRIMARY) HYPERTENSION Status: Chronic Qualifiers: Comment: controlled (5) Hyponatremia Code(s): E87.1 - HYPO-OSMOLALITY AND HYPONATREMIA Status: Chronic Comment: sodium 129 today - Plan * . Likely home tomorrow Review of Systems - Review of Systems Constitutional: negative: fever, chills, sweats, weakness, malaise Respiratory: Cough, Dry, SOB with Excertion, Wheezing. negative: Shortness of Breath, Hemoptysis, Pleuritic Pain, Sputum - Medications/Allergies Allergies/Adverse Reactions: Allergies Allergy/AdvReac Type Severity Reaction Status Date / Time aspirin Allergy Hives Verified 06/26/18 03:27 ceftriaxone sodium Allergy Hives Verified 06/26/18 03:27 [From Rocephin] Medications: Current Medications Acetaminophen (Tylenol) 650 mg PO Q4H PRN PRN Reason: Headache/Fever/Mild Pain (1-3) Last Admin: 08/03/18 08:49 Dose: 650 mg Hydrocodone Bitart/Acetaminophen ([place] 5/325) 1 tab PO Q4H PRN PRN Reason: Moderate Pain (4-6) Last Admin: 08/05/18 09:41 Dose: 1 tab Albuterol/Ipratropium (Duoneb) 3 ml NEB [id number] [facility] Last Admin: 08/05/18 14:55 Dose: 3 ml Enoxaparin Sodium (Lovenox) 40 mg SC 0900 [facility] Last Admin: 08/05/18 09:40 Dose: 40 mg Famotidine (Pepcid) 20 mg PO BID [facility] Last Admin: 08/05/18 09:41 Dose: 20 mg Guaifenesin (Mucinex) 1,200 mg PO Q12HR [facility] Levofloxacin (Levaquin) 750 mg PO 2000 [facility] Last Admin: 08/04/18 21:02 Dose: 750 mg Lorazepam (Ativan) 1 mg PO Q4H PRN PRN Reason: Anxiety/Agitation Last Admin: 08/05/18 09:42 Dose: 1 mg Mometasone Furoate/Formoterol Fumar (Dulera 200 Mcg/5 Mcg Inhaler) 2 puff INH BID-RT [facility] Last Admin: 08/05/18 06:40 Dose: 2 puff Prednisone (Prednisone) 40 mg PO QAM-WM [facility] Senna/Docusate Sodium (Senokot S) 2 tab PO BIDPRN PRN PRN Reason: Constipation Sodium Chloride (Flush - Normal Saline) 10 ml IVF PRN PRN PRN Reason: Saline Flush Last Admin: 08/04/18 12:31 Dose: 10 ml
--- NOTE | 2018-08-05 17:56 | PRG ---
DATE OF SERVICE: 08/05/2018 SERVICE: Pulmonary Medicine. INTERVAL HISTORY: The patient is continuing to cough. He feels like there is sputum in his chest, but he cannot liberate it. He has been weaned down to room air. He is actually walking circuits around the 4th floor. He does not have any dyspnea with that kind of mobility. He denies any current fevers, chills, nausea, or vomiting. He does not have any chest discomfort any longer. PHYSICAL EXAMINATION: VITAL SIGNS: Afebrile, pulse 106, blood pressure 148/82, respirations 20, and saturation 95% on room air. GENERAL: The patient is awake and alert, in no apparent distress. LUNGS: There is a very good air entry. There is a prolonged expiratory phase and polyphonic wheezing present. HEART: Normal rate and regular. ABDOMEN: Soft, nontender, and nondistended. Bowel sounds are positive. MUSCULOSKELETAL: No cyanosis or clubbing. There is trace pitting in the bilateral lower extremities. NEUROLOGIC: Grossly nonfocal. ASSESSMENT: 1. Acute hypoxic respiratory failure, resolved. 2. Chronic obstructive pulmonary disease with acute exacerbation. 3. Community-acquired pneumonia, improving. DISCUSSION AND PLAN: The patient is doing absolutely wonderful from respiratory standpoint. At this point, he is stable for discharge from the hospital. He will need a 5- day course of steroids and a 7-day course of antibiotics. We have reiterated that the patient needs to avoid any type of p.o. for 2 hours before going to bed and sleep with his head of bed elevated. If he is still inclined, he can follow up with me in the outpatient setting. At this point, he has no further requirements for inpatient Pulmonary/Critical Care opinion, and I will sign off. Job ID: [id number] [facility]
[2018-08-05] MEDS: guaiFENesin ER 600 MG TAB PO SCH (20:52)
[2018-08-06] MEDS: HYDROcodone/Acetaminophen 5/325 mg Tablet PO PRN (05:33)
[2018-08-06] MEDS: Lorazepam 1 MG TAB PO PRN (05:33)
[2018-08-06] MEDS: Mometasone/Formoterol 120 PUFF INHALER INH SCH (06:44)
[2018-08-06] MEDS ORDERED: predniSONE 20 MG TAB PO SCH (08:00)
[2018-08-06] MEDS: Famotidine 20 MG TAB PO SCH (08:26)
[2018-08-06] MEDS: Enoxaparin Sodium 40 MG/0.4 ML SYRINGE SC SCH (08:26)
[2018-08-06] MEDS: guaiFENesin ER 600 MG TAB PO SCH (08:26)
[2018-08-06 11:46] VITALS: BP 153/91; TEMP 98.1
--- NOTE | 2018-08-07 03:36 | DIS ---
DATE OF ADMISSION: 08/01/2018 DATE OF DISCHARGE: 08/06/2018 PRIMARY CARE PROVIDER: [facility] in [place]. DISCHARGE DIAGNOSES: 1. Pneumonia. 2. Chronic obstructive pulmonary disease exacerbation. CONDITION OF THE PATIENT ON THE DAY OF DISCHARGE: Stable. I assessed Mr. Milian on the day of discharge. He reports feeling better. Vital signs are stable, he is maintaining good oxygen saturations on room air. S1 and S2 are heard, regular. He has occasional expiratory wheeze. DISCHARGE MEDICATIONS: 1. ProAir HFA 2 puffs every 4 hours as needed. 2. Norvasc 10 mg daily. 3. Vitamin B12 1000 mcg daily. 4. DuoNeb p.r.n. 5. Levofloxacin 500 mg daily for 1 week. 6. Dulera 200/5 mcg 2 puffs two times a day. 7. Prednisone 40 mg daily for 5 days. HOSPITAL COURSE: Mr. Milian is a pleasant 58-year-old gentleman, who was admitted to [facility] on August 01, 2018, for pneumonia and chronic obstructive pulmonary disease exacerbation. He improved with oxygen, steroids, bronchodilators, and antibiotics. He was seen by Pulmonology Service, Dr. Pritchett. He is being discharged home in a stable condition. Many thanks for allowing me to participate in your patient's care. Please feel free to contact me with any questions or concerns. DISCHARGE DESTINATION: Home. TIME SPENT: Total amount of time spent coordinating this discharge: 32 minutes. Job ID: [id number]
== END 2018-08-06 12:41 | disposition home or self-care (01) | DRG 193 ==
LOC: ERS 14:24 → T4-B 16:47
PROVIDERS: ADMIT Internal Medicine; ATTEND Internal Medicine
DX: J18.9 Pneumonia, unspecified organism (principal); J96.01 Acute respiratory failure with hypoxia; J44.1 Chronic obstructive pulmonary disease with (acute) exacerbation; E87.1 Hypo-osmolality and hyponatremia; J44.0 Chronic obstructive pulmonary disease with (acute) lower respiratory infection; I10 Essential (primary) hypertension; F10.10 Alcohol abuse, uncomplicated; Z87.891 Personal history of nicotine dependence; Z88.8 Allergy status to other drugs, medicaments and biological substances; Z88.1 Allergy status to other antibiotic agents; Z79.899 Other long term (current) drug therapy; Z79.52 Long term (current) use of systemic steroids
CPT/HCPCS: 36415; 71045; 80053; 83605; 83880; 84484; 85025; 85379; 87040; 93005; 94640; 94664; 96365; 96368; 96375; J1650; J1956; J2920; J2930; J3411; J3475; J7042; J7512; J7620

== ENCOUNTER 2018-08-30 15:59 | Observation (INO) | payer SELFPAY ==
[2018-08-30] MEDS ORDERED: Magnesium 2 GM/50 ML BAG (IN WATER) ONE (16:43)
[2018-08-30] MEDS ORDERED: chlordiazePOXIDE HCl 25 MG CAP ONE (16:43)
[2018-08-30] MEDS ORDERED: methylPREDNISolone Sod Succ/PF 125 MG/2 ML VIAL ONE (16:43)
[2018-08-30 16:47] LABS: #Basophils 0.1 thou/uL (0.0-0.2); #Eosinphils 0.3 thou/uL (0.0-0.7); #Lymphocytes 2.3 thou/uL (1.20-3.40); #Monocytes 0.7 thou/uL (0.11-0.59); #Neutrophils 3.1 thou/uL (1.40-6.50); %Basophils 1.3 % (0.0-1.0); %Eosinophils 4.6 % (0.0-10.0); %Lymphocytes 35.7 % (21.0-51.0); %Monocytes 10.5 % (0.0-10.0); %Neutrophils 47.9 % (42.0-75.0); Hemoglobin 13.9 g/dL (14.0-18.0); Mean Corpuscular Hemoglobin 33.6 pg (27.0-31.0); Mean Platelet Volume 7.1 fL (7.4-10.4); Platelet Count 298 thou/uL (130-400); RBC Distribution Width 11.7 % (11.5-14.5); Red Blood Cell (RBC) Count 4.15 mill/uL (4.70-6.10); White Blood Cell (WBC) Count 6.5 thou/uL (4.8-10.8)
--- NOTE | 2018-08-30 16:50 | RAD ---
AP view chest. HISTORY: COPD shortness of breath. AP view chest demonstrates EKG leads seen over the chest. There is some blunting of the right costoph renic angle compatible scarring. Some areas of right lower lobe pulmonary parenchymal scarring also seen. The left lung is well aerated. IMPRESSION: Right lung base scar and right pleural scarring. Radiographic appearance of the chest is stable and unchanged. No acute intrathoracic abnormality seen.
[2018-08-30 17:07] LABS: ALT (SGPT) 48 U/L (8-55); AST (SGOT) 68 U/L (5-34); Albumin 3.9 g/dL (3.5-5.0); Alkaline Phosphatase 119 U/L (40-150); Anion Gap 15 mmol/L (10-20); BUN (Urea Nitrogen) 4 mg/dL (8.4-25.7); Bilirubin, Total 0.5 mg/dL (0.2-1.2); Calc. Creatinine Clearance 0 mL/min (70-130); Calcium 8.5 mg/dL (7.8-10.44); Carbon Dioxide 21 mmol/L (22-29); Chloride 94 mmol/L (98-107); Estimated GFR-MDRD Greater than 90; Globulin 2.9 g/dL (2.4-3.5); Glucose 105 mg/dL (70-105); Magnesium 1.9 mg/dL (1.6-2.6); Potassium 3.8 mmol/L (3.5-5.1); Protein, Total 6.8 g/dL (6.0-8.3); Sodium 126 mmol/L (136-145)
[2018-08-30 17:13] LABS: Bilirubin Negative (Negative); Blood, Urine Negative (Negative); Clarity CLEAR (Clear); Glucose, Urine (Dipstick) Negative (Negative); Leukocyte Negative (Negative); Nitrite Negative (Negative); Protein, Urine (Dipstick) Negative (Neg-Trace); Specific Gravity, Urine 1.005 (1.002-1.036); Urobilinogen 0.2 mg/dL (0.2-1.0); pH, Urine 5.5 (5.0-9.0)
[2018-08-30] MEDS ORDERED: Lorazepam 2 MG/ML VIAL ONE (19:24)
[2018-08-30] MEDS ORDERED: Ondansetron PF 4 MG/2 ML Vial ONE ×2 (19:24→19:25)
[2018-08-30] MEDS ORDERED: Multivitamins, Adult 10 ML, Thiamine HCl 100 MG, Folic Acid 1 MG in Dextrose 5 %-0.45 %... IV SCH (20:00)
[2018-08-30] MEDS ORDERED: Senokot S 8.6-50 MG TAB PO PRN (20:01)
[2018-08-30] MEDS ORDERED: HYDROcodone/Acetaminophen 5/325 mg Tablet PO PRN (20:01)
[2018-08-30] MEDS ORDERED: Acetaminophen 325 MG TAB PO PRN (20:01)
[2018-08-30] MEDS ORDERED: Lorazepam 2 MG/ML VIAL SLOW IVP PRN (20:06)
[2018-08-30] MEDS ORDERED: cloNIDine 0.1 MG TAB PO PRN (20:10)
[2018-08-30] MEDS ORDERED: Bacteriostatic Water 30 ML VIAL FS PRN (20:18)
[2018-08-30] MEDS: Famotidine 20 MG TAB PO SCH (21:32)
[2018-08-30 21:57] VITALS: BMI 27.3
[2018-08-30] MEDS: methylPREDNISolone Sod Succ 40 MG VIAL IVP SCH (23:50)
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
[2018-08-31 05:54] LABS: #Lymphocytes 0.3 thou/uL (1.20-3.40); #Neutrophils 1.5 thou/uL (1.40-6.50); %Basophils 0.9 % (0.0-1.0); %Eosinophils 0.5 % (0.0-10.0); %Lymphocytes 16.7 % (21.0-51.0); %Monocytes 0.2 % (0.0-10.0); %Neutrophils 81.7 % (42.0-75.0); Mean Corpuscular HGB CONC 34.2 g/dL (32.0-36.0); Mean Corpuscular Hemoglobin 33.5 pg (27.0-31.0); Mean Corpuscular Volume 97.9 fL (78.0-98.0); Mean Platelet Volume 7.7 fL (7.4-10.4); Platelet Count 242 thou/uL (130-400); RBC Distribution Width 11.8 % (11.5-14.5); Red Blood Cell (RBC) Count 4.19 mill/uL (4.70-6.10); White Blood Cell (WBC) Count 1.9 thou/uL (4.8-10.8)
[2018-08-31] MEDS: methylPREDNISolone Sod Succ 40 MG VIAL IVP SCH ×4 (06:09→23:41)
[2018-08-31 06:14] LABS: ALT (SGPT) 43 U/L (8-55); AST (SGOT) 46 U/L (5-34); Albumin 3.8 g/dL (3.5-5.0); Alkaline Phosphatase 120 U/L (40-150); Anion Gap 18 mmol/L (10-20); BUN (Urea Nitrogen) 4 mg/dL (8.4-25.7); Bilirubin, Total 0.3 mg/dL (0.2-1.2); Calc. Creatinine Clearance 127 mL/min (70-130); Calcium 8.7 mg/dL (7.8-10.44); Carbon Dioxide 19 mmol/L (22-29); Chloride 100 mmol/L (98-107); Estimated GFR-MDRD Greater than 90; Globulin 2.7 g/dL (2.4-3.5); Glucose 224 mg/dL (70-105); Potassium 4.1 mmol/L (3.5-5.1); Protein, Total 6.5 g/dL (6.0-8.3); Sodium 133 mmol/L (136-145)
[2018-08-31] MEDS ORDERED: Folic Acid 1 MG TAB PO SCH (09:00)
[2018-08-31] MEDS ORDERED: Thiamine 100 MG TAB PO SCH (09:00)
[2018-08-31] MEDS: Famotidine 20 MG TAB PO SCH ×2 (09:55→20:00)
[2018-08-31] MEDS: Amlodipine 10 MG TAB PO SCH (09:55)
[2018-08-31] MEDS: Enoxaparin Sodium 40 MG/0.4 ML SYRINGE SC SCH (09:55)
[2018-08-31] MEDS: Multivitamins, Adult 10 ML, Folic Acid 1 MG, Thiamine HCl 100 MG in Dextrose 5 %-0.45 %... IV SCH (09:55)
--- NOTE | 2018-08-31 13:31 | PDOC.PN ---
- Subjective Encounter Start Date: 08/31/18 Encounter Start Time: 13:30 Patient lying in bed, he reports still coughing with mild shortness of breath. He denies chest pain, palpitations. He remains on ASE for alcohol withdrawal and appears diaphoretic and tachycardic. - Objective Resuscitation Status - Order Detail: 08/30/18 20:01 Resuscitation Status Routine Co-Sign Provider: Resuscitation Status: FULL: Full Resuscitation Discussed with: patient Additional comments: Older brotherFarhan is surrogate decision maker, MAR Reviewed: Yes Vital Signs & Weight: Vital Signs (12 hours) Temp Pulse Resp BP BP Pulse Ox 08/31/18 12:00 169/91 H 08/31/18 11:23 98.7 F 124 H 15 169/91 H 97 08/31/18 11:07 130 H 24 H 96 08/31/18 09:55 133 H 08/31/18 08:00 165/87 H 08/31/18 07:31 99.2 F 133 H 20 165/87 H 96 08/31/18 03:46 97.8 F 120 H 18 171/96 H 96 08/31/18 01:30 111 H 18 95 Weight Weight 200 lb 3.2 oz I&O: 08/30/18 08/31/18 09/01/18 06:59 06:59 06:59 Intake Total 2110 Output Total 1950 Balance 160 Result Diagrams: 08/31/18 04:42 08/31/18 04:42 Radiology Reviewed by me: Yes Phys Exam - Physical Examination Constitutional: NAD HEENT: PERRLA, moist MMs, oral pharynx no lesions Neck: supple Diffuse rhonchi Cardiovascular: no significant murmur Tachycardic at times Gastrointestinal: soft, positive bowel sounds Musculoskeletal: pulses present Neurological: non-focal, moves all 4 limbs Lymphatic: no nodes Psychiatric: A&O x 3 Deviation from normal: Appears anxioux Skin: no rash, cap refill <2 seconds Dx/Plan (1) Acute exacerbation of chronic obstructive pulmonary disease (COPD) Code(s): J44.1 - CHRONIC OBSTRUCTIVE PULMONARY DISEASE W (ACUTE) EXACERBATION Status: Acute (2) Tachycardia Code(s): R00.0 - TACHYCARDIA, UNSPECIFIED Status: Acute (3) CKD (chronic kidney disease) stage 2, GFR 60-89 ml/min Code(s): N18.2 - CHRONIC KIDNEY DISEASE, STAGE 2 (MILD) Status: Chronic (4) Hypertension Code(s): I10 - ESSENTIAL (PRIMARY) HYPERTENSION Status: Chronic Qualifiers: Comment: controlled (5) Hyponatremia Code(s): E87.1 - HYPO-OSMOLALITY AND HYPONATREMIA Status: Chronic (6) Tobacco abuse Code(s): Z72.0 - TOBACCO USE Status: Chronic Comment: Counselled on cessation. Declines patch. reports that he has quit smoking - Plan cont current plan of care, continue antibiotics * Continue symptomatic treatment with IV steroids, duonebs and abx for COPD exac * Duonebs as needed * Continue ASE, secondary to tachycardia he will be placed on telemetry * Continue other home medications * Pending patient progress, may be discharged in the next 24 hours
[2018-08-31] MEDS ORDERED: Diazepam 5 MG TAB PO PRN (13:33)
[2018-08-31] MEDS ORDERED: Diazepam 5 MG TAB PO SCH (13:45)
[2018-08-31] MEDS ORDERED: Thiamine HCl 200 MG/2 ML VIAL IM SCH (13:45)
[2018-09-01] MEDS ORDERED: Diazepam 5 MG TAB PO PRN (04:00)
[2018-09-01] MEDS: methylPREDNISolone Sod Succ 40 MG VIAL IVP SCH (05:01)
[2018-09-01 06:17] LABS: ALT (SGPT) 35 U/L (8-55); AST (SGOT) 31 U/L (5-34); Albumin 3.4 g/dL (3.5-5.0); Alkaline Phosphatase 90 U/L (40-150); Anion Gap 14 mmol/L (10-20); BUN (Urea Nitrogen) 9 mg/dL (8.4-25.7); Bilirubin, Total 0.4 mg/dL (0.2-1.2); Calc. Creatinine Clearance 134 mL/min (70-130); Calcium 9.1 mg/dL (7.8-10.44); Carbon Dioxide 23 mmol/L (22-29); Chloride 102 mmol/L (98-107); Estimated GFR-MDRD Greater than 90; Glucose 152 mg/dL (70-105); Potassium 3.9 mmol/L (3.5-5.1); Protein, Total 6.4 g/dL (6.0-8.3); Sodium 135 mmol/L (136-145)
--- NOTE | 2018-09-01 08:28 | PDOC.EVN ---
Event Note - Event Note Event Note: patient seen and evaluated, chart reviewed. chest clear with no wheezes,etc. agree with management and DC plan.
[2018-09-01] MEDS: Famotidine 20 MG TAB PO SCH (08:41)
[2018-09-01] MEDS: Multivitamins, Adult 10 ML, Folic Acid 1 MG, Thiamine HCl 100 MG in Dextrose 5 %-0.45 %... IV SCH (08:41)
[2018-09-01] MEDS: Amlodipine 10 MG TAB PO SCH (08:42)
[2018-09-01] MEDS: Enoxaparin Sodium 40 MG/0.4 ML SYRINGE SC SCH (08:43)
[2018-09-01] MEDS ORDERED: Magnesium Oxide 400 MG TAB PO SCH (09:00)
[2018-09-01] MEDS ORDERED: Thiamine 100 MG TAB PO SCH (09:00)
[2018-09-01] MEDS ORDERED: Folic Acid 1 MG TAB PO SCH (09:00)
[2018-09-01] MEDS ORDERED: Multivitamin W/ Minerals 1 TAB PO SCH (09:00)
[2018-09-01 11:33] VITALS: BP 150/82; TEMP 98.5
[2018-09-03] MEDS ORDERED: Folic Acid 1 MG TAB PO SCH (09:00)
[2018-09-03] MEDS ORDERED: Multivitamin W/ Minerals 1 TAB PO SCH (09:00)
[2018-09-03] MEDS ORDERED: Thiamine 100 MG TAB PO SCH (09:00)
== END 2018-09-01 11:42 | disposition home or self-care (01) ==
LOC: ERS 15:59 → 2SW 19:27
PROVIDERS: ADMIT Hospitalist; ATTEND Hospitalist
DX: J44.1 Chronic obstructive pulmonary disease with (acute) exacerbation (principal); I12.9 Hypertensive chronic kidney disease with stage 1 through stage 4 chronic kidney disease, or unspecified chronic kidney disease; N18.2 Chronic kidney disease, stage 2 (mild); E87.1 Hypo-osmolality and hyponatremia; F10.10 Alcohol abuse, uncomplicated; Z87.891 Personal history of nicotine dependence; Z79.899 Other long term (current) drug therapy; Z88.1 Allergy status to other antibiotic agents; Z88.8 Allergy status to other drugs, medicaments and biological substances; Z98.890 Other specified postprocedural states
CPT/HCPCS: 36415; 71045; 80053; 81003; 83735; 83880; 85025; 93005; 93306; 94640; 96365; 96366; 96367; 96372; 96375; 96376; G0378; J1650; J2060; J2405; J2920; J2930; J3411; J3475; J3490; J7042; J7620

== ENCOUNTER 2018-09-05 13:56 | Observation (INO) | payer SELFPAY ==
--- NOTE | 2018-09-05 14:18 | RAD ---
Exam: Chest one view HISTORY:Short of breath Comparison: 08/01/2018 FINDINGS: Lungs: Stable chronic opacities of the right lung, with volume loss. No significant opacity of left l jackie Cardiac silhouette:Stable. Accentuated by portable supine technique. Pulmonary vessels: Mild central prominence Pleural Spaces: Stable pleural-based opacity of the inferior right hemithorax Pneumothorax: None Osseous abnormalities: None of acuity. IMPRESSION: Persistent volume loss with linear parenchymal densities and pleural-based opacification of the right hemithorax
[2018-09-05 14:20] LABS: #Basophils 0.1 thou/uL (0.0-0.2); #Eosinphils 0.2 thou/uL (0.0-0.7); #Lymphocytes 2.7 thou/uL (1.20-3.40); #Monocytes 0.6 thou/uL (0.11-0.59); #Neutrophils 3.9 thou/uL (1.40-6.50); %Basophils 1.1 % (0.0-1.0); %Eosinophils 2.9 % (0.0-10.0); %Lymphocytes 35.9 % (21.0-51.0); %Monocytes 7.5 % (0.0-10.0); %Neutrophils 52.6 % (42.0-75.0); Hemoglobin 14.1 g/dL (14.0-18.0); Mean Corpuscular Hemoglobin 33.6 pg (27.0-31.0); Mean Corpuscular Volume 98.6 fL (78.0-98.0); Platelet Count 234 thou/uL (130-400); RBC Distribution Width 12.2 % (11.5-14.5); White Blood Cell (WBC) Count 7.5 thou/uL (4.8-10.8)
[2018-09-05] MEDS ORDERED: methylPREDNISolone Sod Succ/PF 125 MG/2 ML VIAL ONE (14:26)
[2018-09-05 14:40] LABS: Bilirubin Negative (Negative); Blood, Urine Negative (Negative); Clarity CLEAR (Clear); Glucose, Urine (Dipstick) Negative (Negative); Leukocyte Negative (Negative); Nitrite Negative (Negative); Protein, Urine (Dipstick) Negative (Neg-Trace); Specific Gravity, Urine 1.005 (1.002-1.036); Urobilinogen 0.2 mg/dL (0.2-1.0); pH, Urine 5.5 (5.0-9.0)
[2018-09-05 14:43] LABS: ALT (SGPT) 103 U/L (8-55); AST (SGOT) 97 U/L (5-34); Albumin 3.8 g/dL (3.5-5.0); Alkaline Phosphatase 108 U/L (40-150); Anion Gap 15 mmol/L (10-20); BUN (Urea Nitrogen) 8 mg/dL (8.4-25.7); Bilirubin, Total 0.5 mg/dL (0.2-1.2); CK (CPK) 23 U/L (30-200); Calc. Creatinine Clearance 0 mL/min (70-130); Calcium 8.7 mg/dL (7.8-10.44); Carbon Dioxide 22 mmol/L (22-29); Chloride 98 mmol/L (98-107); Estimated GFR-MDRD Greater than 90; Globulin 2.6 g/dL (2.4-3.5); Glucose 98 mg/dL (70-105); Potassium 4.2 mmol/L (3.5-5.1); Protein, Total 6.4 g/dL (6.0-8.3); Sodium 131 mmol/L (136-145)
[2018-09-05] MEDS ORDERED: methylPREDNISolone Sod Succ/PF 125 MG/2 ML VIAL IVP SCH (15:00)
[2018-09-05] MEDS ORDERED: Multivitamins, Adult 10 ML, Thiamine HCl 100 MG, Folic Acid 1 MG in Dextrose 5 %-0.45 %... IV ONE (15:00)
[2018-09-05] MEDS ORDERED: Sodium Chloride 0.9% 1,000 ML IV SCH (15:00)
[2018-09-05] MEDS ORDERED: Ondansetron PF 4 MG/2 ML Vial IVP PRN (17:36)
[2018-09-05] MEDS ORDERED: Ondansetron ODT 4 MG TAB PO PRN (17:36)
[2018-09-05] MEDS ORDERED: Diazepam 5 MG TAB PO SCH (17:45)
[2018-09-05] MEDS ORDERED: Diazepam 5 MG TAB PO PRN (17:46)
[2018-09-05 18:17] LABS: Magnesium 2.1 mg/dL (1.6-2.6)
[2018-09-05 20:29] LABS: Amphetamine Not Detected (NotDetected); Barbiturates Screen Not Detected (NotDetected); Benzodiazepine Screen Detected (NotDetected); Cocaine Metabolite Screen Not Detected (NotDetected); Medtox Control Line Valid? VALID (VALID); Medtox Reader # READER 1; Methadone Not Detected (NotDetected); Methamphetamine Not Detected (NotDetected); Opiate Screen Not Detected (NotDetected); Oxycodone Screen Not Detected (NotDetected); Phencyclidine (PCP) Not Detected (NotDetected); THC/Cannabinoid Screen Not Detected (NotDetected); Tricyclic Screen Not Detected (NotDetected)
[2018-09-05 20:34] LABS: Troponin I 0.014 ng/mL (< 0.028)
[2018-09-05 20:38] VITALS: BMI 26.9
[2018-09-05] MEDS ORDERED: Famotidine/PF 20 mg/2ml Vial SLOW IVP SCH (21:00)
[2018-09-05] MEDS: Famotidine 20 MG TAB PO SCH (21:23)
--- NOTE | 2018-09-06 03:52 | PDOC.EVN ---
Event Note - Event Note Event Note: Dictation #[id number]
[2018-09-06 07:28] LABS: #Lymphocytes 0.6 thou/uL (1.20-3.40); #Monocytes 0.4 thou/uL (0.11-0.59); #Neutrophils 6.4 thou/uL (1.40-6.50); %Basophils 0.1 % (0.0-1.0); %Eosinophils 0.3 % (0.0-10.0); %Lymphocytes 8.5 % (21.0-51.0); %Monocytes 5.2 % (0.0-10.0); %Neutrophils 85.9 % (42.0-75.0); Hemoglobin 14.1 g/dL (14.0-18.0); Mean Corpuscular HGB CONC 33.9 g/dL (32.0-36.0); Mean Corpuscular Hemoglobin 33.6 pg (27.0-31.0); Mean Corpuscular Volume 99.1 fL (78.0-98.0); Mean Platelet Volume 7.5 fL (7.4-10.4); Platelet Count 208 thou/uL (130-400); RBC Distribution Width 12.3 % (11.5-14.5); White Blood Cell (WBC) Count 7.4 thou/uL (4.8-10.8)
[2018-09-06 07:32] LABS: Anion Gap 11 mmol/L (10-20); BUN (Urea Nitrogen) 10 mg/dL (8.4-25.7); Calc. Creatinine Clearance 144 mL/min (70-130); Carbon Dioxide 24 mmol/L (22-29); Chloride 105 mmol/L (98-107); Estimated GFR-MDRD Greater than 90; Glucose 111 mg/dL (70-105); Potassium 4.1 mmol/L (3.5-5.1); Sodium 136 mmol/L (136-145)
[2018-09-06] MEDS ORDERED: Ketorolac Tromethamine 30 MG/ML VIAL IVP PRN (08:37)
[2018-09-06] MEDS: Famotidine 20 MG TAB PO SCH ×2 (08:44→21:14)
[2018-09-06] MEDS: Multivitamin W/ Minerals 1 TAB PO SCH (08:44)
[2018-09-06] MEDS: Enoxaparin Sodium 40 MG/0.4 ML SYRINGE SC SCH (08:44)
[2018-09-06] MEDS: Folic Acid 1 MG TAB PO SCH (08:44)
[2018-09-06] MEDS: Thiamine 100 MG TAB PO SCH (08:45)
--- NOTE | 2018-09-06 13:03 | PDOC.EVN ---
Event Note - Event Note Event Note: I have personally seen and examined pt, assessment and plan discussed with RETAIL ASSISTANT MANAGER, agreed with note
[2018-09-06] MEDS ORDERED: Amlodipine 10 MG TAB PO SCH (14:15)
--- NOTE | 2018-09-06 15:02 | PDOC.PN ---
- Subjective Encounter Start Date: 09/06/18 Encounter Start Time: 15:01 Patient lying in bed, he appears diaphoretic and anxious, he continues on ASE. He denies chest pain, shortness of breath. Alcohol level was 230, he reports drinking 4 beers yesterday. He was recently discharged, but states he was not able to afford his medications, nurses report patient had a roll of money when he arrived to the floor. - Objective Resuscitation Status - Order Detail: 09/05/18 17:36 Resuscitation Status Routine Co-Sign Provider: Resuscitation Status: FULL: Full Resuscitation MAR Reviewed: Yes Vital Signs & Weight: Vital Signs (12 hours) Temp Pulse Resp BP BP BP BP 09/06/18 14:36 101 H 173/102 H 09/06/18 14:32 101 H 16 09/06/18 12:20 173/102 H 09/06/18 11:41 97.7 F 107 H 12 173/102 H 09/06/18 10:28 107 H 16 09/06/18 08:44 162/95 H 09/06/18 07:44 99.0 F 113 H 12 162/95 H 172/99 H 09/06/18 06:15 114 H 16 BP Pulse Ox 09/06/18 14:36 09/06/18 14:32 09/06/18 12:20 09/06/18 11:41 97 09/06/18 10:28 09/06/18 08:44 09/06/18 07:44 162/88 H 97 09/06/18 06:15 Weight Weight 203 lb 3.2 oz I&O: 09/05/18 09/06/18 09/07/18 06:59 06:59 06:59 Intake Total 1900 Output Total 1700 Balance 200 Result Diagrams: 09/06/18 06:49 09/06/18 06:49 Radiology Reviewed by me: Yes EKG Reviewed by me: Yes Phys Exam - Physical Examination Appears diaphoretic and anxious HEENT: moist MMs, oral pharynx no lesions Neck: supple Coarse breath sounds bilaterally Cardiovascular: no significant murmur Sinus tachycardia on the monitor Gastrointestinal: soft, positive bowel sounds Musculoskeletal: pulses present Neurological: normal sensation, moves all 4 limbs Lymphatic: no nodes Psychiatric: A&O x 3 Deviation from normal: Anxious Skin: normal turgor, cap refill <2 seconds Dx/Plan (1) Acute exacerbation of chronic obstructive pulmonary disease (COPD) Code(s): J44.1 - CHRONIC OBSTRUCTIVE PULMONARY DISEASE W (ACUTE) EXACERBATION Status: Acute (2) Tachycardia Code(s): R00.0 - TACHYCARDIA, UNSPECIFIED Status: Acute (3) Abnormal LFTs Code(s): R79.89 - OTHER SPECIFIED ABNORMAL FINDINGS OF BLOOD CHEMISTRY Status : Chronic (4) Alcohol abuse Code(s): F10.10 - ALCOHOL ABUSE, UNCOMPLICATED Status: Chronic Comment: Continue ASE protocol (5) CKD (chronic kidney disease) stage 2, GFR 60-89 ml/min Code(s): N18.2 - CHRONIC KIDNEY DISEASE, STAGE 2 (MILD) Status: Chronic (6) Chronic alcohol use Code(s): Z72.89 - OTHER PROBLEMS RELATED TO LIFESTYLE Status: Chronic Comment: continue ASE protocol (7) Hypertension Code(s): I10 - ESSENTIAL (PRIMARY) HYPERTENSION Status: Chronic Qualifiers: Comment: controlled (8) Tobacco abuse Code(s): Z72.0 - TOBACCO USE Status: Chronic - Plan cont current plan of care, continue antibiotics * Continue IV steroids and other symptomatic treatment * Strongly encouraged compliance * Continue ASE, strongly encouraged sobriety * Recheck CMP in am * He continues to be tachycardic likely due to alcohol withdrawal, continue telemetry, echo during last admission last week * Hopeful for discharge in the next 24-48 hours
[2018-09-06] MEDS ORDERED: Diazepam 5 MG TAB PO PRN (18:00)
[2018-09-07 05:51] LABS: #Eosinphils 0.1 thou/uL (0.0-0.7); #Lymphocytes 1.8 thou/uL (1.20-3.40); #Monocytes 0.9 thou/uL (0.11-0.59); #Neutrophils 3.9 thou/uL (1.40-6.50); %Basophils 0.7 % (0.0-1.0); %Eosinophils 1.3 % (0.0-10.0); %Lymphocytes 26.9 % (21.0-51.0); %Monocytes 12.9 % (0.0-10.0); %Neutrophils 58.3 % (42.0-75.0); Hemoglobin 14.4 g/dL (14.0-18.0); Mean Corpuscular HGB CONC 32.2 g/dL (32.0-36.0); Mean Corpuscular Hemoglobin 32.3 pg (27.0-31.0); Mean Platelet Volume 8.1 fL (7.4-10.4); Platelet Count 196 thou/uL (130-400); RBC Distribution Width 12.7 % (11.5-14.5); Red Blood Cell (RBC) Count 4.47 mill/uL (4.70-6.10); White Blood Cell (WBC) Count 6.7 thou/uL (4.8-10.8)
[2018-09-07 06:10] LABS: ALT (SGPT) 82 U/L (8-55); AST (SGOT) 67 U/L (5-34); Albumin 3.6 g/dL (3.5-5.0); Alkaline Phosphatase 99 U/L (40-150); Anion Gap 13 mmol/L (10-20); BUN (Urea Nitrogen) 10 mg/dL (8.4-25.7); Bilirubin, Total 0.8 mg/dL (0.2-1.2); Calc. Creatinine Clearance 142 mL/min (70-130); Carbon Dioxide 25 mmol/L (22-29); Chloride 101 mmol/L (98-107); Estimated GFR-MDRD Greater than 90; Globulin 2.8 g/dL (2.4-3.5); Glucose 93 mg/dL (70-105); Potassium 3.7 mmol/L (3.5-5.1); Protein, Total 6.4 g/dL (6.0-8.3); Sodium 135 mmol/L (136-145)
[2018-09-07] MEDS: Thiamine 100 MG TAB PO SCH (08:30)
[2018-09-07] MEDS: Enoxaparin Sodium 40 MG/0.4 ML SYRINGE SC SCH (08:30)
[2018-09-07] MEDS: Famotidine 20 MG TAB PO SCH (08:30)
[2018-09-07] MEDS: Folic Acid 1 MG TAB PO SCH (08:30)
[2018-09-07] MEDS: Multivitamin W/ Minerals 1 TAB PO SCH (08:31)
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
[2018-09-07] MEDS ORDERED: Amlodipine 10 MG TAB PO SCH (09:00)
[2018-09-07] MEDS ORDERED: Sodium Chloride 0.9% 1,000 ML IV SCH (12:15)
[2018-09-07 12:41] VITALS: BP 136/89; TEMP 98.4
--- NOTE | 2018-09-08 04:15 | DIS ---
DATE OF ADMISSION: 09/05/2018 DATE OF DISCHARGE: 09/07/2018 CHIEF COMPLAINT ON ADMISSION: Lightheadedness and wheezing. DISCHARGE DIAGNOSES: 1. Acute on chronic obstructive pulmonary disease exacerbation, resolved. 2. Lightheadedness likely secondary to mild dehydration, resolved with IV fluids. 3. History of noncompliance with medical therapy. 4. Alcohol abuse with elevated liver function tests. 5. Hypertension. 6. Sinus tachycardia secondary to frequent neb/beta agonist, intermittent, D- dimer negative. HOSPITAL COURSE: The patient is a 58-year-old male with past medical history significant for COPD, alcohol abuse, hypertension, who presented to the hospital with complaints of lightheadedness and general feeling of being unwell after working outside in the heat painting the house. The patient was admitted with acute on chronic COPD exacerbation. His lightheadedness resolved with administration of IV fluids. The patient was recently admitted on August 31, 2018 to this facility, and discharged 2 days ago. He had been admitted with community-acquired pneumonia, but had not picked up his prescriptions at the pharmacy which consisted of levofloxacin as well as prednisone. In any case, he was reinstated on these medications and his COPD exacerbation is much improved. He has been counseled on continued compliance with medications as they are prescribed, as well as to continue his amlodipine and perform blood pressure checks at home. CONDITION ON DISCHARGE: Stable. DISCHARGE DISPOSITION: Home. DISCHARGE INSTRUCTIONS/FOLLOW UP: As mentioned, the patient will continue his steroid/prednisone taper as well as to continue his course of levofloxacin for the next two days. He will continue p.r.n. nebulizer treatments for his COPD and follow up with his primary care physician. He has also been counseled heavily on his alcohol use, as well as end-organ damage in his elevated liver enzymes. He has had no signs of withdrawal or active DTs today. Care of this patient has been discussed with Dr. Grubbs, who does agree with discharge as outlined above. Job ID: [id number] [facility]
== END 2018-09-07 14:52 | disposition home or self-care (01) ==
LOC: ERS 13:56 → 2SW 19:00
PROVIDERS: ADMIT Internal Medicine; ATTEND Internal Medicine
DX: R42 Dizziness and giddiness (principal); J44.1 Chronic obstructive pulmonary disease with (acute) exacerbation; I10 Essential (primary) hypertension; E86.0 Dehydration; R00.0 Tachycardia, unspecified; F10.10 Alcohol abuse, uncomplicated; Z79.899 Other long term (current) drug therapy; Z88.1 Allergy status to other antibiotic agents; Z88.8 Allergy status to other drugs, medicaments and biological substances; Z91.19 Patient's noncompliance with other medical treatment and regimen
CPT/HCPCS: 36415; 71045; 80048; 80053; 80306; 80307; 81003; 82140; 82550; 83605; 83690; 83735; 83880; 84484; 85025; 85379; 93005; 94640; 94760; 96361; 96365; 96366; 96372; 96375; G0378; J1650; J1885; J2930; J3411; J7042; J7620

== ENCOUNTER 2018-10-01 21:09 | Inpatient (IN) | payer SELFPAY ==
[2018-10-01] MEDS ORDERED: predniSONE 20 MG TAB ONE (21:46)
[2018-10-01] MEDS ORDERED: Albuterol Sulfate 2.5 mg/0.5 ml Neb ONE ×2 (21:50→22:54)
[2018-10-01] MEDS ORDERED: Albuterol Sulfate 2.5 mg/3 ml Neb ONE ×2 (21:50→22:54)
--- NOTE | 2018-10-01 21:50 | RAD ---
Chest 2 views HISTORY: Cough. Dyspnea. COMPARISON: 09/05/2018. FINDINGS: Cardiac silhouette and pulmonary vasculature are unremarkable. Lungs are hyperinflated. Sma ll amount right pleural fluid and scarring at the right base are similar in appearance to the previous exam. No evidence of pneumothorax or lobar consolidation. IMPRESSION: Small amount right pleural fluid and other chronic-type findings are stable. No active ca rdiopulmonary abnormalities are otherwise demonstrated.
[2018-10-01] MEDS ORDERED: methylPREDNISolone Sod Succ/PF 125 MG/2 ML VIAL ONE (23:54)
[2018-10-01] MEDS ORDERED: Furosemide 40 MG/4 ML VIAL ONE (23:54)
[2018-10-02] MEDS ORDERED: Albuterol Sulfate 2.5 mg/3 ml Neb ONE (01:20)
[2018-10-02 01:34] LABS: #Basophils 0.1 thou/uL (0.0-0.2); #Eosinphils 0.1 thou/uL (0.0-0.7); #Lymphocytes 0.8 thou/uL (1.20-3.40); #Monocytes 0.1 thou/uL (0.11-0.59); #Neutrophils 2.8 thou/uL (1.40-6.50); %Basophils 1.7 % (0.0-1.0); %Lymphocytes 20.7 % (21.0-51.0); %Monocytes 2.9 % (0.0-10.0); %Neutrophils 71.8 % (42.0-75.0); Mean Corpuscular Hemoglobin 34.2 pg (27.0-31.0); Mean Platelet Volume 7.4 fL (7.4-10.4); Platelet Count 227 thou/uL (130-400); RBC Distribution Width 12.6 % (11.5-14.5); Red Blood Cell (RBC) Count 4.38 mill/uL (4.70-6.10); White Blood Cell (WBC) Count 3.9 thou/uL (4.8-10.8)
[2018-10-02] MEDS ORDERED: Lice Shampoo 120 ML BOT TOP SCH (01:45)
[2018-10-02 01:55] LABS: ALT (SGPT) 47 U/L (8-55); AST (SGOT) 51 U/L (5-34); Albumin 4.4 g/dL (3.5-5.0); Alkaline Phosphatase 104 U/L (40-150); Anion Gap 21 mmol/L (10-20); BUN (Urea Nitrogen) 5 mg/dL (8.4-25.7); Bilirubin, Total 0.4 mg/dL (0.2-1.2); CK (CPK) 49 U/L (30-200); Calc. Creatinine Clearance 0 mL/min (70-130); Calcium 9.7 mg/dL (7.8-10.44); Carbon Dioxide 21 mmol/L (22-29); Chloride 100 mmol/L (98-107); Estimated GFR-MDRD Greater than 90; Globulin 2.6 g/dL (2.4-3.5); Glucose 130 mg/dL (70-105); Potassium 3.9 mmol/L (3.5-5.1); Sodium 138 mmol/L (136-145)
[2018-10-02] MEDS ORDERED: Ondansetron PF 4 MG/2 ML Vial IVP PRN ×2 (02:33→11:48)
[2018-10-02] MEDS ORDERED: Ondansetron ODT 4 MG TAB SL PRN (02:33)
[2018-10-02 03:10] VITALS: BMI 26.6
[2018-10-02 05:27] LABS: Troponin I Less than 0.010 ng/mL (< 0.028)
[2018-10-02 08:40] LABS: Troponin I Less than 0.010 ng/mL (< 0.028)
[2018-10-02] MEDS ORDERED: hydrALAZINE 20 MG/ML VIAL SLOW IVP PRN (11:48)
[2018-10-02] MEDS ORDERED: Acetaminophen 325 MG TAB PO PRN (11:48)
[2018-10-02] MEDS ORDERED: Furosemide 40 MG/4 ML VIAL SLOW IVP SCH (11:48)
[2018-10-02] MEDS ORDERED: Ondansetron ODT 4 MG TAB PO PRN (11:48)
[2018-10-02] MEDS: methylPREDNISolone Sod Succ 40 MG VIAL IVP SCH ×2 (13:53→17:50)
[2018-10-02] MEDS: Famotidine 20 MG TAB PO SCH (21:00)
[2018-10-03] MEDS: methylPREDNISolone Sod Succ 40 MG VIAL IVP SCH ×5 (00:18→23:19)
[2018-10-03 06:20] LABS: #Lymphocytes 0.4 thou/uL (1.20-3.40); #Monocytes 0.3 thou/uL (0.11-0.59); #Neutrophils 7.4 thou/uL (1.40-6.50); %Eosinophils 0.1 % (0.0-10.0); %Lymphocytes 4.5 % (21.0-51.0); %Monocytes 3.5 % (0.0-10.0); %Neutrophils 91.9 % (42.0-75.0); Mean Corpuscular HGB CONC 33.5 g/dL (32.0-36.0); Mean Platelet Volume 8.1 fL (7.4-10.4); Platelet Count 216 thou/uL (130-400); RBC Distribution Width 12.8 % (11.5-14.5); Red Blood Cell (RBC) Count 4.11 mill/uL (4.70-6.10)
[2018-10-03 06:42] LABS: Anion Gap 16 mmol/L (10-20); BUN (Urea Nitrogen) 13 mg/dL (8.4-25.7); Calc. Creatinine Clearance 121 mL/min (70-130); Calcium 9.4 mg/dL (7.8-10.44); Carbon Dioxide 25 mmol/L (22-29); Chloride 95 mmol/L (98-107); Estimated GFR-MDRD 90; Glucose 169 mg/dL (70-105); Potassium 3.4 mmol/L (3.5-5.1); Sodium 133 mmol/L (136-145)
[2018-10-03] MEDS: Famotidine 20 MG TAB PO SCH ×2 (09:15→21:21)
[2018-10-03] MEDS: Enoxaparin Sodium 40 MG/0.4 ML SYRINGE SC SCH (09:15)
[2018-10-03] MEDS ORDERED: Albuterol Sulfate 2.5 mg/3 ml Neb NEB PRN (11:38)
--- NOTE | 2018-10-03 11:42 | PDOC.PN ---
- Subjective Encounter Start Date: 10/03/18 (f/u COPD exac) Encounter Start Time: 11:40 Subjective: Pt denies any significant change in breathing today. Reports a cough -: but not productive. Easy LUNDBERG with walking to the bathroom -: denies any new sx. - Objective Resuscitation Status - Order Detail: 10/02/18 11:44 Resuscitation Status Routine Resuscitation Status: FULL: Full Resuscitation Vital Signs & Weight: Vital Signs (12 hours) Temp Pulse Resp BP Pulse Ox 10/03/18 09:25 97.6 F 82 18 128/70 95 10/03/18 07:38 77 20 10/03/18 03:52 97.8 F 81 18 146/85 H 94 L 10/03/18 00:26 97 18 95 Weight Weight 202 lb I&O: 10/02/18 10/03/18 10/04/18 06:59 06:59 06:59 Intake Total 240 1420 240 Output Total 1410 Balance 240 10 240 Result Diagrams: 10/03/18 05:24 10/03/18 05:24 EKG Reviewed by me: Yes (tele - sinus 100's) Phys Exam - Physical Examination Constitutional: NAD Respiratory: no rales expiratory wheezing and rhonchi throughout Cardiovascular: RRR, no significant murmur Gastrointestinal: soft, non-tender, no distention, positive bowel sounds Musculoskeletal: no edema Neurological: non-focal Psychiatric: normal affect Dx/Plan (1) Acute exacerbation of chronic obstructive pulmonary disease (COPD) Code(s): J44.1 - CHRONIC OBSTRUCTIVE PULMONARY DISEASE W (ACUTE) EXACERBATION Status: Acute (2) Alcohol abuse Code(s): F10.10 - ALCOHOL ABUSE, UNCOMPLICATED Status: Chronic Comment: Continue ASE protocol (3) Hypertension Code(s): I10 - ESSENTIAL (PRIMARY) HYPERTENSION Status: Chronic Qualifiers: Comment: controlled (4) Hypokalemia Code(s): E87.6 - HYPOKALEMIA Status: Acute (5) Hyponatremia Code(s): E87.1 - HYPO-OSMOLALITY AND HYPONATREMIA Status: Chronic - Plan * COPD with exac * change levaquin to PO and plan for 5 day total course * increase duonebs to q4h and add prn albuterol q2h * add brovana and budesonide bid * continue IV steroids for now * htn - bp's controlled, hold home amlodipine * hypokalemia - replace orally * hyponatremia - monitor * * dvt prophy - lovenox * gi prophy - on famotidine with high dose steroids, * code status full * * reviewed plan of care with patient, no questions or further needs at end of eval.
[2018-10-03] MEDS ORDERED: Potassium Chloride 20 MEQ TAB PO SCH (11:45)
[2018-10-03] MEDS: Budesonide 0.5 MG/2 ML NEB INH SCH (18:31)
[2018-10-03] MEDS: Arformoterol 15 MCG/2 ML NEB NEB SCH (18:32)
[2018-10-04] MEDS: methylPREDNISolone Sod Succ 40 MG VIAL IVP SCH (06:10)
[2018-10-04] MEDS: Arformoterol 15 MCG/2 ML NEB NEB SCH ×2 (06:45→19:28)
[2018-10-04] MEDS: Budesonide 0.5 MG/2 ML NEB INH SCH ×2 (07:06→19:28)
[2018-10-04 08:47] LABS: Anion Gap 18 mmol/L (10-20); BUN (Urea Nitrogen) 14 mg/dL (8.4-25.7); Calc. Creatinine Clearance 128 mL/min (70-130); Calcium 9.7 mg/dL (7.8-10.44); Carbon Dioxide 23 mmol/L (22-29); Chloride 96 mmol/L (98-107); Estimated GFR-MDRD Greater than 90; Glucose 124 mg/dL (70-105); Potassium 3.7 mmol/L (3.5-5.1); Sodium 133 mmol/L (136-145)
[2018-10-04] MEDS: Famotidine 20 MG TAB PO SCH ×2 (09:26→20:01)
[2018-10-04] MEDS: Enoxaparin Sodium 40 MG/0.4 ML SYRINGE SC SCH (09:26)
--- NOTE | 2018-10-04 09:30 | PDOC.PN ---
- Subjective Encounter Start Date: 10/04/18 (f/u copd with exac) Encounter Start Time: 09:27 Subjective: Pt reports feeling better, able to ambulate, continues to cough. -: denies n/v/abd pain or new concerns. - Objective Resuscitation Status - Order Detail: 10/02/18 11:44 Resuscitation Status Routine Resuscitation Status: FULL: Full Resuscitation Vital Signs & Weight: Vital Signs (12 hours) Temp Pulse Resp BP Pulse Ox 10/04/18 07:08 86 18 100 10/04/18 07:06 86 18 100 10/04/18 06:45 86 18 98 10/04/18 03:00 97.2 F L 105 H 20 138/70 94 L 10/04/18 02:33 98 16 98 10/03/18 22:29 99 16 99 10/03/18 21:30 97.4 F L 97 20 134/70 93 L Weight Weight 203 lb 9 oz I&O: 10/03/18 10/04/18 10/05/18 06:59 06:59 06:59 Intake Total 1420 2030 Output Total 1410 2420 Balance 10 -390 Result Diagrams: 10/03/18 05:24 10/04/18 07:44 EKG Reviewed by me: Yes (tele - sinus 100's, few episodes to 140's/brief) Phys Exam - Physical Examination Constitutional: NAD Respiratory: no rales, no rhonchi improved air movement with wheezing Cardiovascular: RRR, no significant murmur Gastrointestinal: soft, non-tender, no distention, positive bowel sounds Musculoskeletal: no edema Neurological: non-focal Psychiatric: normal affect Dx/Plan (1) Acute exacerbation of chronic obstructive pulmonary disease (COPD) Code(s): J44.1 - CHRONIC OBSTRUCTIVE PULMONARY DISEASE W (ACUTE) EXACERBATION Status: Acute (2) Alcohol abuse Code(s): F10.10 - ALCOHOL ABUSE, UNCOMPLICATED Status: Chronic Comment: Continue ASE protocol (3) Hypertension Code(s): I10 - ESSENTIAL (PRIMARY) HYPERTENSION Status: Chronic Qualifiers: Comment: controlled (4) Hypokalemia Code(s): E87.6 - HYPOKALEMIA Status: Resolved (5) Hyponatremia Code(s): E87.1 - HYPO-OSMOLALITY AND HYPONATREMIA Status: Chronic - Plan * * COPD with exac * continue levaquin to PO for 5 day total course * decrease duonebs to q6h to see how pt tolerated and continue prn albuterol q2h * continue brovana and budesonide bid * continue IV steroids for one dose tonight and transition to prednisone tomorrow * htn - bp's controlled, hold home amlodipine * hypokalemia - resolved * hyponatremia - stable * * dvt prophy - lovenox * gi prophy - on famotidine with high dose steroids, * code status full * * reviewed plan of care with patient, no questions or further needs at end of eval. * anticipate home in the next few days * transfer to medical floor
[2018-10-04] MEDS ORDERED: methylPREDNISolone Sod Succ 40 MG VIAL IVP SCH (21:00)
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
[2018-10-05 05:50] LABS: Anion Gap 12 mmol/L (10-20); BUN (Urea Nitrogen) 15 mg/dL (8.4-25.7); Calc. Creatinine Clearance 0 mL/min (70-130); Calcium 9.5 mg/dL (7.8-10.44); Carbon Dioxide 25 mmol/L (22-29); Chloride 99 mmol/L (98-107); Estimated GFR-MDRD Greater than 90; Glucose 131 mg/dL (70-105); Potassium 4.3 mmol/L (3.5-5.1); Sodium 132 mmol/L (136-145)
[2018-10-05] MEDS: Arformoterol 15 MCG/2 ML NEB NEB SCH (06:39)
[2018-10-05] MEDS: Budesonide 0.5 MG/2 ML NEB INH SCH (06:39)
[2018-10-05] MEDS ORDERED: predniSONE 20 MG TAB PO SCH (08:00)
[2018-10-05 08:13] VITALS: TEMP 98
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
[2018-10-05] MEDS: Famotidine 20 MG TAB PO SCH (08:56)
[2018-10-05] MEDS: Enoxaparin Sodium 40 MG/0.4 ML SYRINGE SC SCH (08:56)
[2018-10-05 12:02] VITALS: BP 170/95
[2018-10-05] MEDS ORDERED: SYMBICORT INH SCH (18:30)
--- NOTE | 2018-10-05 21:22 | DIS ---
DATE OF ADMISSION: 10/02/2018 DATE OF DISCHARGE: 10/05/2018 MEDICATIONS: Reconciled at discharge. New medications are; 1. Levofloxacin 500 mg one p.o. daily for the next 2 days starting tomorrow. 2. Prednisone 10 mg tablet three tablets daily for 2 days, then 2 tablets daily for 2 days, then 1 tablet daily for 2 days and then stop. Medications to continue: 1. Symbicort 80/4.5 one inhalation b.i.d. 2. ProAir every 4 hours as needed. 3. DuoNeb every 4 hours as needed. FOLLOWUP: Followup is with the primary care provider within a week to review this hospitalization and address any other health needs to include breathing. FINAL DIAGNOSES: 1. Acute exacerbation of chronic obstructive pulmonary disease. 2. Acute on chronic respiratory failure with hypoxia. 3. Hypertension. 4. Hyponatremia, mild. 5. Hypokalemia, resolved. 6. History of alcohol abuse. SECONDARY DIAGNOSES: Mildly elevated LFT. HISTORY OF PRESENT ILLNESS: Mr. Milian is a 58-year-old male with history of COPD, recently had admitted to this hospital for the same, who presented to the emergency room with a complaint of difficulty breathing. The onset was about three days before admission and symptoms had been intermittent. HOSPITAL COURSE: The patient was admitted, started on broad-spectrum antibiotics with levofloxacin, IV steroids with Solu-Medrol, scheduled nebulizer treatment. He has improved over the past few days and has been deescalated to start oral steroids today, oral antibiotics yesterday, and has overall done well. His nebulizers have been scheduled at this point every 6 hours, which is sustainable at home. The patient is ambulating without difficulty, he is off oxygen, and he does meet criteria for discharge to home. He will be discharged to continue his DuoNeb, start his Symbicort, a steroid taper, and finished 2 more doses of levofloxacin. Blood pressures have been well controlled. Today's blood pressures are higher than what they have been here in the hospital, which are primarily 120s up to 140 systolic. The patient is noted to have by report, has been treated for that here. He will need followup for this and to determine if re-application of the treatment is indicated. PHYSICAL EXAMINATION: VITAL SIGNS: On day of discharge, his blood pressure is 170/95, this morning was 145/84 and earlier this morning was 115/75. Temp 98, pulse 86, respirations 16, and sats 97% on room air. GENERAL: Awake, alert, responsive, in no apparent distress. Able to speak in full sentences. LUNGS: Clear to auscultation bilateral with good air movement. HEART: Normal S1 and S2. Regular rate and rhythm. No audible murmurs. ABDOMEN: Soft with present bowel sounds. MCCORD FINDINGS AND TEST RESULTS: CBC on 10/03; 8.0, 14, 41.8, 216. Chemistry; 132, 4.3, 99, 25, 16, 0.81, 131 with a calcium of 9.5. Troponins were negative x3. AST 51, ALT 47, alkaline phosphatase 104, total protein 7, albumin 4.4. Chest x-ray performed on 10/01, shows small amount of right pleural fluid and other chronic type findings are stable. No active cardiopulmonary abnormality. DIET: Heart healthy. ACTIVITY: As tolerated. CODE STATUS: Full. Reviewed with patient this hospitalization, the medications for discharge, the importance of followup and seek care precautions. No questions or further needs at the end of evaluation. TOTAL TIME COORDINATING DISCHARGE: 30 minutes. Job ID: [id number]
== END 2018-10-05 14:07 | disposition home or self-care (01) | DRG 189 ==
LOC: ERS 21:09 → 2NO 10-02 02:22 → SURG A 10-04 12:16
PROVIDERS: ADMIT Internal Medicine; ATTEND Internal Medicine
DX: J96.21 Acute and chronic respiratory failure with hypoxia (principal); J44.1 Chronic obstructive pulmonary disease with (acute) exacerbation; E87.1 Hypo-osmolality and hyponatremia; I10 Essential (primary) hypertension; E87.6 Hypokalemia; F10.10 Alcohol abuse, uncomplicated; Z88.1 Allergy status to other antibiotic agents; Z88.8 Allergy status to other drugs, medicaments and biological substances; Z87.891 Personal history of nicotine dependence; Z79.51 Long term (current) use of inhaled steroids; Z91.14 Patient's other noncompliance with medication regimen
CPT/HCPCS: 36415; 71046; 80048; 80053; 82550; 84484; 85025; 93005; 94640; 96374; 96375; J1650; J1940; J1956; J2920; J2930; J7512; J7611; J7620; J7626

== ENCOUNTER 2018-12-13 17:51 | Emergency (ER) | payer SELFPAY ==
--- NOTE | 2018-12-13 18:18 | RAD ---
EXAM: Single view of the chest HISTORY: Dyspnea and chest pain. Dizziness COMPARISON: 09/05/2018 FINDINGS: Single view of the chest shows a normal sized cardiomediastinal silhouette. Scarring is se en in the right lung base. There is no evidence of consolidation, mass, or pleural effusion. The bones are unremarkable. IMPRESSION: No evidence of acute cardiopulmonary disease
[2018-12-13 18:19] LABS: #Basophils 0.1 thou/uL (0.0-0.2); #Eosinphils 0.1 thou/uL (0.0-0.7); #Monocytes 0.6 thou/uL (0.11-0.59); #Neutrophils 3.9 thou/uL (1.40-6.50); %Basophils 1.5 % (0.0-1.0); %Eosinophils 0.7 % (0.0-10.0); %Lymphocytes 45.9 % (21.0-51.0); %Monocytes 6.5 % (0.0-10.0); %Neutrophils 45.4 % (42.0-75.0); Hemoglobin 15.5 g/dL (14.0-18.0); Mean Corpuscular HGB CONC 34.2 g/dL (32.0-36.0); Mean Corpuscular Volume 99.2 fL (78.0-98.0); Mean Platelet Volume 7.4 fL (7.4-10.4); Platelet Count 237 thou/uL (130-400); RBC Distribution Width 11.4 % (11.5-14.5); Red Blood Cell (RBC) Count 4.55 mill/uL (4.70-6.10); White Blood Cell (WBC) Count 8.7 thou/uL (4.8-10.8)
[2018-12-13 18:44] LABS: ALT (SGPT) 106 U/L (8-55); AST (SGOT) 140 U/L (5-34); Albumin 4.2 g/dL (3.5-5.0); Alcohol 346 mg/dL (Less than 10); Alkaline Phosphatase 127 U/L (40-150); Anion Gap 19 mmol/L (10-20); BUN (Urea Nitrogen) Less than 4 mg/dL (8.4-25.7); Bilirubin, Total 0.6 mg/dL (0.2-1.2); CK (CPK) 53 U/L (30-200); Calc. Creatinine Clearance 0 mL/min (70-130); Calcium 8.7 mg/dL (7.8-10.44); Carbon Dioxide 22 mmol/L (22-29); Chloride 93 mmol/L (98-107); Estimated GFR-MDRD Greater than 90; Globulin 2.7 g/dL (2.4-3.5); Glucose 98 mg/dL (70-105); Potassium 3.8 mmol/L (3.5-5.1); Protein, Total 6.9 g/dL (6.0-8.3); Sodium 130 mmol/L (136-145)
[2018-12-13] MEDS ORDERED: Clopidogrel Bisulfate 75 MG TAB ONE (19:26)
== END 2018-12-13 20:30 | disposition home or self-care (01) ==
LOC: ERS 17:51
DX: J44.1 Chronic obstructive pulmonary disease with (acute) exacerbation (principal); F10.129 Alcohol abuse with intoxication, unspecified; I10 Essential (primary) hypertension; Z87.891 Personal history of nicotine dependence; Z79.51 Long term (current) use of inhaled steroids; Z79.52 Long term (current) use of systemic steroids; Z79.899 Other long term (current) drug therapy
CPT/HCPCS: 36415; 71045; 80053; 80307; 82550; 83605; 83880; 84443; 85025; 87040; 93005; 94640; 96360; J7620

== ENCOUNTER 2019-02-13 17:24 | Inpatient (IN) | payer SELFPAY ==
[~2019-02-13 17:24] MED LIST: Iopamidol-370 76% 500 ML 1 ML ONE
[2019-02-13] MEDS ORDERED: methylPREDNISolone Sod Succ/PF 125 MG/2 ML VIAL ONE (17:52)
--- NOTE | 2019-02-13 18:04 | RAD ---
EXAM: XR Chest 1 View Portable PROVIDED CLINICAL HISTORY: Cough COMPARISON: 12/13/2018 FINDINGS: Cardiac and mediastinal silhouette is unchanged in appearance. Chronic right basilar pleural-parenchy mal opacity appears similar. Lungs appear otherwise clear. No evidence for pneumothorax. IMPRESSION: Stable radiographic appearance of the chest.
[2019-02-13] MEDS ORDERED: Albuterol Sulfate 2.5 mg/3 ml Neb ONE ×2 (18:30→20:43)
[2019-02-13] MEDS ORDERED: Albuterol Sulfate 2.5 mg/0.5 ml Neb ONE (18:30)
[2019-02-13 18:32] LABS: #Basophils 0.2 thou/uL (0.0-0.2); #Eosinphils 0.1 thou/uL (0.0-0.7); #Lymphocytes 3.2 thou/uL (1.20-3.40); #Monocytes 0.4 thou/uL (0.11-0.59); #Neutrophils 4.5 thou/uL (1.40-6.50); %Basophils 1.8 % (0.0-1.0); %Eosinophils 1.7 % (0.0-10.0); %Lymphocytes 38.7 % (21.0-51.0); %Monocytes 4.2 % (0.0-10.0); %Neutrophils 53.6 % (42.0-75.0); Hemoglobin 16.8 g/dL (14.0-18.0); Mean Corpuscular HGB CONC 34.6 g/dL (32.0-36.0); Mean Corpuscular Volume 98.3 fL (78.0-98.0); Mean Platelet Volume 7.8 fL (7.4-10.4); Platelet Count 371 thou/uL (130-400); RBC Distribution Width 11.3 % (11.5-14.5); Red Blood Cell (RBC) Count 4.95 mill/uL (4.70-6.10); White Blood Cell (WBC) Count 8.4 thou/uL (4.8-10.8)
[2019-02-13 19:40] LABS: Albumin 4.1 g/dL (3.5-5.0)
[2019-02-13 19:41] LABS: Chloride 98 mmol/L (98-107); Potassium 4.1 mmol/L (3.5-5.1); Sodium 133 mmol/L (136-145)
[2019-02-13 19:42] LABS: Calcium 8.9 mg/dL (7.8-10.44)
[2019-02-13 19:43] LABS: Globulin 3.2 g/dL (2.4-3.5); Glucose 102 mg/dL (70-105); Protein, Total 7.3 g/dL (6.0-8.3)
[2019-02-13 19:44] LABS: Anion Gap 18 mmol/L (10-20); Bilirubin, Total 0.5 mg/dL (0.2-1.2); Carbon Dioxide 21 mmol/L (22-29)
[2019-02-13 19:46] LABS: Alkaline Phosphatase 132 U/L (40-110); Calc. Creatinine Clearance 0 mL/min (70-130); Estimated GFR-MDRD Greater than 90
[2019-02-13 19:47] LABS: BUN (Urea Nitrogen) 4 mg/dL (8.4-25.7)
[2019-02-13 19:48] LABS: AST (SGOT) 108 U/L (5-34)
[2019-02-13 19:49] LABS: ALT (SGPT) 76 U/L (8-55); CK (CPK) 49 U/L (30-200)
[2019-02-13] MEDS ORDERED: Ipratropium Bromide 2.5 ml Neb NEB PRN (22:09)
[2019-02-13] MEDS ORDERED: Acetaminophen 325 MG TAB PO PRN (22:13)
--- NOTE | 2019-02-13 22:28 | CT ---
EXAM: CT pulmonary angiogram with IV contrast and 3-D MIP reconstructions PROVIDED CLINICAL HISTORY: Shortness of breath COMPARISON: 05/06/2017 FINDINGS: There is no evidence for central or segmental pulmonary embolus. Stable right basilar subsegmental atelectasis with minimal adjacent pleural fluid. Lungs appear other alonso clear. No freely layering pleural fluid or pneumothorax apparent. No evidence for thoracic lymph node enlargement. The airway appears patent and of normal caliber. The visualized portions of the upper abdomen demonstrate no acute findings. The osseous structures de monstrate no concerning lytic or blastic lesions. IMPRESSION: No evidence for central or segmental pulmonary embolus.
--- NOTE | 2019-02-13 23:03 | PDOC.EVN ---
Event Note - Event Note Event Note: [id number] HP
[2019-02-13] MEDS: methylPREDNISolone Sod Succ 40 MG VIAL IVP SCH (23:59)
[2019-02-14 02:11] LABS: Troponin I Less than 0.010 ng/mL (< 0.028)
--- NOTE | 2019-02-14 03:13 | HP ---
CHIEF COMPLAINT: Shortness of breath and weakness. HISTORY OF PRESENT ILLNESS: Mr. Milian is a 58-year-old male with past medical history of COPD and hypertension, presented to the emergency room with worsening shortness of breath for the last 3 days. He has not been feeling well for the last 2 to 3 weeks, feeling fatigued and tired, but for the last 2 to 3 days, he started being more short of breath. Shortness of breath is worse with minimal exertion. In the emergency room, the patient's oxygen saturation on room air has been around 88%. Patient does not have home oxygen. Workup in the emergency room, patient was in respiratory distress, in spite of receiving breathing treatments and IV steroids, continued to be symptomatic. CT angiogram of the chest is being done. The results are still pending at the time of this dictation. He has been also tachycardic with heart rate in the low 100s. No fever. No chills. No nausea. No vomiting. No diarrhea. PAST MEDICAL HISTORY: 1. COPD. 2. Hypertension. 3. Liver cirrhosis. PAST SURGICAL HISTORY: Left thumb. SOCIAL HISTORY: Drinks about five drinks a day. He is a former drug user. Used marijuana in the past. Former cigarette smoker. FAMILY HISTORY: Reviewed and noncontributory. HOME MEDICATIONS: Please see home medication reconciliation form for updated medications. ALLERGIES: ALLERGIC TO ASPIRIN AND ROCEPHIN. REVIEW OF SYSTEMS: Review of 14 systems negative, except what is mentioned in history of present illness. PHYSICAL EXAMINATION: GENERAL: Patient is awake, alert, in moderate respiratory distress. VITAL SIGNS: Blood pressure 110/73, pulse is 110, respiratory rate is 20, temperature 97.8, and oxygen saturation is 90% on room air. HEAD AND NECK: Normocephalic and atraumatic. Neck is supple. No JVD. CHEST: Bilateral expiratory wheeze. HEART: S1, S2. Regular. Tachycardic. ABDOMEN: Soft and nontender. Bowel sounds present. NEUROLOGIC: Awake, alert, and oriented x3. PSYCH: Normal mood. EXTREMITIES: No clubbing, no cyanosis. LABORATORY DATA: Sodium 133, AST 108, ALT 78, and alkaline phosphatase 132. Chest x-ray, no acute finding. CT angiogram of the chest is being done, results are pending at time of this dictation. ASSESSMENT: 1. Acute exacerbation of chronic obstructive pulmonary disease. 2. Tachycardia. 3. Hypertension. 4. Liver cirrhosis. PLAN: 1. Admit. 2. Oxygen to keep saturation more than 92%. 3. Bronchodilators scheduled and as needed. 4. IV steroids. 5. IV antibiotic. 6. Reconcile home medications. 7. DVT prophylaxis as appropriate. 8. Expected length of stay at least 1 midnight if patient is stable and show significant clinical improvement. Job ID: [id number]
[2019-02-14] MEDS: methylPREDNISolone Sod Succ 40 MG VIAL IVP SCH ×3 (05:34→18:21)
[2019-02-14] MEDS ORDERED: FLU VACC QS2019-20(6MOS UP)/PF 60 MCG/0.5 ML SYRINGE IM ONE (09:00)
[2019-02-14] MEDS: Famotidine 20 MG TAB PO SCH ×2 (09:14→21:43)
[2019-02-14] MEDS: Enoxaparin Sodium 40 MG/0.4 ML SYRINGE SC SCH (09:15)
[2019-02-14 13:26] LABS: ALT (SGPT) 68 U/L (8-55); AST (SGOT) 62 U/L (5-34); Albumin 4.2 g/dL (3.5-5.0); Alkaline Phosphatase 125 U/L (40-110); Anion Gap 19 mmol/L (10-20); BUN (Urea Nitrogen) 7 mg/dL (8.4-25.7); Bilirubin, Total 0.5 mg/dL (0.2-1.2); Calc. Creatinine Clearance 106 mL/min (70-130); Calcium 9.1 mg/dL (7.8-10.44); Carbon Dioxide 19 mmol/L (22-29); Chloride 96 mmol/L (98-107); Estimated GFR-MDRD 86; Globulin 3.4 g/dL (2.4-3.5); Glucose 191 mg/dL (70-105); Potassium 4.2 mmol/L (3.5-5.1); Protein, Total 7.6 g/dL (6.0-8.3); Sodium 130 mmol/L (136-145)
[2019-02-14] MEDS: Lorazepam 1 MG TAB PO PRN (17:08)
[2019-02-14] MEDS: Multivitamins, Adult 10 ML, Folic Acid 1 MG, Thiamine HCl 100 MG in Dextrose 5 %-0.45 %... IV SCH (17:09)
[2019-02-14] MEDS ORDERED: Albuterol Sulfate 1.25 MG/3 ML NEB NEB PRN (21:53)
--- NOTE | 2019-02-14 21:54 | PDOC.HOSPP ---
- Subjective Encounter Date: 02/14/19 Encounter Time: 21:00 Subjective: The patient says he is not coughing up anything. Still feels short of breath just walking to the bathroom. On day shift, CIWA score noted to be 11 and he required prn ativan. Patient states he has a touch of cirrhosis and drinks 32 ounces on a daily basis. He has not tried to quit alcohol in the past. He says he thinks he can quit on his own. - Objective Vital Signs & Weight: Vital Signs (12 hours) Temp Pulse Resp BP BP Pulse Ox 02/14/19 20:23 98.2 F 95 16 163/85 H 98 02/14/19 15:36 98.8 F 96 16 168/92 H 98 02/14/19 15:06 178/89 H 02/14/19 13:34 99 16 95 02/14/19 11:42 98.3 F 104 H 22 H 178/89 H 98 Weight Weight 185 lb 3.2 oz I&O: 02/13/19 02/14/19 02/15/19 06:59 06:59 06:59 Intake Total 150 1761 Balance 150 1761 Result Diagrams: 02/13/19 18:15 02/14/19 12:57 Hospitalist ROS - Medication Medications: Active Medications Generic Name Dose Route Start Last Admin Trade Name Freq PRN Reason Stop Dose Admin Acetaminophen 650 mg 02/13/19 22:13 02/14/19 09:15 Tylenol PO 650 mg Q4H PRN Administration Headache/Fever/Mild Pain (1-3) Albuterol/Ipratropium 3 ml 02/13/19 22:09 02/14/19 13:34 Duoneb NEB 3 ml [id number] PRN Administration SOB &/or Wheezing Enoxaparin Sodium 40 mg 02/14/19 09:00 02/14/19 09:15 Lovenox SC 40 mg 0900 JIM Administration Famotidine 20 mg 02/14/19 09:00 02/14/19 21:43 Pepcid PO 20 mg BID JIM Administration Levofloxacin 750 mg/ Device 150 mls @ 100 mls/hr 02/13/19 23:00 02/13/19 23: 59 IVPB 150 mls 2300 JIM Administration Multivitamins 10 ml/ Folic 1,011.2 mls @ 0 mls/hr 02/14/19 16:30 02/14/19 17: 09 Acid 1 mg/ Thiamine HCl 100 mg IV 1,011.2 mls / Dextrose/Sodium Chloride Q24HR JIM Administration As Directed Lorazepam 2 mg 02/14/19 15:18 02/14/19 17:08 Ativan PO 2 mg Q2H PRN Administration Anxiety/Agitation Methylprednisolone Sodium Succinate 40 mg 02/13/19 23:59 02/14/19 18:21 Solu-Medrol IVP 40 mg Q6HR JIM Administration - Exam General Appearance: NAD, awake alert Eye: PERRL, anicteric sclera ENT: normocephalic atraumatic, no oropharyngeal lesions Neck: supple, symmetric, no JVD, no thyromegaly Heart: RRR, no murmur, no gallops, no rubs Respiratory - other findings: diffuse wheezing Gastrointestinal: soft, non-tender, non-distended, normal bowel sounds Extremities: no cyanosis, no clubbing, no edema Skin: normal turgor, no lesions, no rashes Neurological: cranial nerve grossly intact, normal sensation to touch, no focal deficits, no new deficit Musculoskeletal: normal tone, normal strength, no muscle wasting Psychiatric: normal affect, normal behavior, A&O x 3, oriented to person Hosp A/P - Plan CTA chest: no acute PE Chest X ray: no acute disease This is a 58 year old male admitted with COPD exacerbation Acute COPD exacerbation - on IV levaquin, methylprednisolone 40 mg q6 hours - on duoneb q4 hours, add albuterol q2 hours prn - currently on room air - troponin negative times three Hyponatremia -sodium dropped to 130, will recheck tomorrow. Likely from alcoholism - order banana bag for today - does appear to have a chronic hyponatremia at baseline Transaminitis secondary to alcoholism - improving. Continue to monitor Acute alcohol withdrawal - ativan q2 hours prn - CIWA protocol - thiamine and folic acid daily Hypertension - resume amlodipine DVT prophyalxis: enoxaparin Code status: full code
[2019-02-14] MEDS ORDERED: Amlodipine 10 MG TAB PO SCH (22:00)
[2019-02-15] MEDS: methylPREDNISolone Sod Succ 40 MG VIAL IVP SCH ×3 (00:28→12:22)
[2019-02-15 04:39] LABS: Hemoglobin 14.4 g/dL (14.0-18.0); Mean Corpuscular HGB CONC 32.6 g/dL (32.0-36.0); Mean Corpuscular Hemoglobin 32.5 pg (27.0-31.0); Mean Corpuscular Volume 99.8 fL (78.0-98.0); Mean Platelet Volume 8.5 fL (7.4-10.4); Platelet Count 269 thou/uL (130-400); RBC Distribution Width 11.1 % (11.5-14.5); Red Blood Cell (RBC) Count 4.44 mill/uL (4.70-6.10); White Blood Cell (WBC) Count 8.2 thou/uL (4.8-10.8)
[2019-02-15 04:59] LABS: Anion Gap 15 mmol/L (10-20); BUN (Urea Nitrogen) 9 mg/dL (8.4-25.7); Calc. Creatinine Clearance 134 mL/min (70-130); Calcium 9.1 mg/dL (7.8-10.44); Carbon Dioxide 23 mmol/L (22-29); Chloride 97 mmol/L (98-107); Estimated GFR-MDRD Greater than 90; Glucose 121 mg/dL (70-105); Potassium 4.2 mmol/L (3.5-5.1); Sodium 131 mmol/L (136-145)
[2019-02-15] MEDS: guaiFENesin ER 600 MG TAB PO SCH ×2 (10:07→21:06)
[2019-02-15] MEDS: Thiamine 100 MG TAB PO SCH (10:07)
[2019-02-15] MEDS: Famotidine 20 MG TAB PO SCH ×2 (10:07→21:06)
[2019-02-15] MEDS: Amlodipine 10 MG TAB PO SCH (10:07)
[2019-02-15] MEDS: Enoxaparin Sodium 40 MG/0.4 ML SYRINGE SC SCH (10:08)
[2019-02-15] MEDS: Folic Acid 1 MG TAB PO SCH (10:08)
[2019-02-15] MEDS ORDERED: Mometasone/Formoterol 120 PUFF INHALER INH SCH ×2 (13:00→18:30)
--- NOTE | 2019-02-15 13:00 | PDOC.HOSPP ---
- Subjective Encounter Date: 02/15/19 Encounter Time: 13:00 Subjective: The patient says he is starting to cough up more but is still not able to bring up any phlegm. Still wheezing significantly. Denies chest pain. He is compliant with symbicort at home but is almost out of it. His last COPD exacerbation was in October Today he is not withdrawing much, yesterday he felt bugs crawling on his legs. - Objective Vital Signs & Weight: Vital Signs (12 hours) Temp Pulse Resp BP BP Pulse Ox 02/15/19 12:20 153/83 H 99 02/15/19 11:43 98.3 F 100 14 153/83 H 99 02/15/19 10:07 158/81 H 02/15/19 08:15 158/81 H 98 02/15/19 07:35 98.2 F 94 16 158/81 H 98 02/15/19 04:00 87 18 166/86 H 99 Weight Weight 185 lb 3.2 oz I&O: 02/14/19 02/15/19 02/16/19 06:59 06:59 06:59 Intake Total 150 1761 480 Output Total 275 Balance 150 1486 480 Result Diagrams: 02/15/19 03:51 02/15/19 03:51 Hospitalist ROS - Review of Systems Constitutional: denies: fever, chills Respiratory: reports: cough Gastrointestinal: denies: nausea, vomiting - Medication Medications: Active Medications Generic Name Dose Route Start Last Admin Trade Name Freq PRN Reason Stop Dose Admin Acetaminophen 650 mg 02/13/19 22:13 02/14/19 09:15 Tylenol PO 650 mg Q4H PRN Administration Headache/Fever/Mild Pain (1-3) Albuterol/Ipratropium 3 ml 02/13/19 22:09 02/14/19 13:34 Duoneb NEB 3 ml [id number] PRN Administration SOB &/or Wheezing Amlodipine Besylate 10 mg 02/15/19 09:00 02/15/19 10:07 Norvasc PO 10 mg DAILY JIM Administration Enoxaparin Sodium 40 mg 02/14/19 09:00 02/15/19 10:08 Lovenox SC 40 mg 0900 JIM Administration Famotidine 20 mg 02/14/19 09:00 02/15/19 10:07 Pepcid PO 20 mg BID JIM Administration Folic Acid 1 mg 02/15/19 09:00 02/15/19 10:08 Folvite PO 1 mg DAILY JIM Administration Guaifenesin 600 mg 02/15/19 09:00 02/15/19 10:07 Mucinex PO 600 mg Q12HR JIM Administration Levofloxacin 750 mg/ Device 150 mls @ 100 mls/hr 02/13/19 23:00 02/14/19 22: 48 IVPB 150 mls 2300 JIM Administration Multivitamins 10 ml/ Folic 1,011.2 mls @ 0 mls/hr 02/14/19 16:30 02/14/19 17: 09 Acid 1 mg/ Thiamine HCl 100 mg IV 1,011.2 mls / Dextrose/Sodium Chloride Q24HR JIM Administration As Directed Lorazepam 2 mg 02/14/19 15:18 02/14/19 17:08 Ativan PO 2 mg Q2H PRN Administration Anxiety/Agitation Thiamine HCl 100 mg 02/15/19 09:00 02/15/19 10:07 Thiamine PO 100 mg DAILY JIM Administration - Exam General Appearance: NAD, awake alert Eye: PERRL, anicteric sclera ENT: normocephalic atraumatic, no oropharyngeal lesions Neck: supple, no JVD Heart: RRR, no murmur, no gallops, no rubs Respiratory: CTAB Respiratory - other findings: diffuse wheezing Gastrointestinal: soft, non-tender, non-distended, normal bowel sounds Extremities: no cyanosis, no clubbing, no edema Skin: normal turgor, no lesions, no rashes Neurological: cranial nerve grossly intact, normal sensation to touch, no focal deficits, no new deficit Musculoskeletal: normal tone, normal strength, no muscle wasting Hosp A/P - Plan CTA chest: no acute PE Chest X ray: no acute disease This is a 58 year old male admitted with COPD exacerbation Acute COPD exacerbation - on IV levaquin, methylprednisolone 40 mg q6 hours. Will increase to 60 mg IV q6 hours. CTA showed no PE, chest X ray showed no acute disease - change duoneb to standing q4, continue albuterol prn, mucinex. Add symbicort - trop negative times three - will get pulm consult - add incentive spirometer q2 hours while awake, flutter valve Euvolemic Hyponatremia - improving. S/p banana bag - serum osmolarity normal, urine osmolarity low, consistent with euvolemic Transaminitis secondary to alcoholism - improving. Recheck today Acute alcohol withdrawal - ativan q2 hours prn - CIWA protocol - thiamine and folic acid daily Hypertension -controlled. BP 153 systolic. Continue amlodipine DVT prophyalxis: enoxaparin Code status: full code
[2019-02-15] MEDS: Ipratropium Bromide 2.5 ml Neb NEB SCH ×3 (13:41→22:22)
[2019-02-15 14:05] LABS: ALT (SGPT) 59 U/L (8-55); AST (SGOT) 57 U/L (5-34); Albumin 3.9 g/dL (3.5-5.0); Alkaline Phosphatase 99 U/L (40-110); Bilirubin, Direct 0.4 mg/dL (0.1-0.3); Bilirubin, Total 0.8 mg/dL (0.2-1.2); Protein, Total 7.2 g/dL (6.0-8.3)
[2019-02-15] MEDS ORDERED: Magnesium 2 GM/50 ML 2 GM in Premix Bag 1 BAG IVPB SCH (15:00)
[2019-02-15] MEDS: Multivitamins, Adult 10 ML, Folic Acid 1 MG, Thiamine HCl 100 MG in Dextrose 5 %-0.45 %... IV SCH (16:34)
[2019-02-15] MEDS: methylPREDNISolone Sod Succ/PF 125 MG/2 ML VIAL IVP SCH ×2 (17:29→23:49)
[2019-02-15] MEDS: Mometasone/Formoterol 120 PUFF INHALER INH SCH (18:50)
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
[2019-02-16] MEDS: Ipratropium Bromide 2.5 ml Neb NEB SCH ×2 (02:14→07:27)
[2019-02-16] MEDS: Lorazepam 1 MG TAB PO PRN (03:25)
[2019-02-16 05:33] LABS: ALT (SGPT) 54 U/L (8-55); AST (SGOT) 51 U/L (5-34); Albumin 3.7 g/dL (3.5-5.0); Alkaline Phosphatase 81 U/L (40-110); Anion Gap 11 mmol/L (10-20); BUN (Urea Nitrogen) 11 mg/dL (8.4-25.7); Bilirubin, Total 0.6 mg/dL (0.2-1.2); Calc. Creatinine Clearance 131 mL/min (70-130); Calcium 8.8 mg/dL (7.8-10.44); Carbon Dioxide 26 mmol/L (22-29); Chloride 98 mmol/L (98-107); Estimated GFR-MDRD Greater than 90; Globulin 2.8 g/dL (2.4-3.5); Glucose 132 mg/dL (70-105); Potassium 3.6 mmol/L (3.5-5.1); Protein, Total 6.5 g/dL (6.0-8.3); Sodium 131 mmol/L (136-145)
[2019-02-16] MEDS: methylPREDNISolone Sod Succ/PF 125 MG/2 ML VIAL IVP SCH ×3 (06:06→18:21)
[2019-02-16] MEDS: Mometasone/Formoterol 120 PUFF INHALER INH SCH ×2 (07:30→19:34)
[2019-02-16] MEDS: guaiFENesin ER 600 MG TAB PO SCH ×2 (09:11→20:17)
[2019-02-16] MEDS: Amlodipine 10 MG TAB PO SCH (09:11)
[2019-02-16] MEDS: Folic Acid 1 MG TAB PO SCH (09:11)
[2019-02-16] MEDS: Enoxaparin Sodium 40 MG/0.4 ML SYRINGE SC SCH (09:11)
[2019-02-16] MEDS: Famotidine 20 MG TAB PO SCH ×2 (09:11→20:17)
[2019-02-16] MEDS: Thiamine 100 MG TAB PO SCH (09:12)
[2019-02-16 09:42] LABS: Magnesium 2.3 mg/dL (1.6-2.6); Phosphorus 2.9 mg/dL (2.3-4.7)
--- NOTE | 2019-02-16 09:48 | PRG ---
DATE OF SERVICE: 02/16/2019 SUBJECTIVE: Pablo Milian this morning is still having difficulty breathing, still coughing and wheezing. OBJECTIVE: VITAL SIGNS: Temperature 97, pulse 105, respiratory rate 16, saturations 100% room air, blood pressure 136/69. CHEST: Diffuse wheezing. CARDIAC: Normal S1, S2. No gallops. ABDOMEN: No masses. ASSESSMENT: Chronic obstructive pulmonary disease and bronchial asthma exacerbation, minimally improved. PLAN: I have added Singulair, Pulmicort to his neb treatment. Otherwise, empiric antibiotics, supportive care. We will follow. Job ID: [id number]
[2019-02-16] MEDS: Doxycycline 100 MG CAP PO SCH ×2 (11:32→20:17)
--- NOTE | 2019-02-16 16:10 | PDOC.HOSPP ---
- Subjective Encounter Date: 02/16/19 Encounter Time: 09:00 Subjective: The patient feels much better today. He walked back and forth to the bathroom without any significant dyspnea. He is still wheezing however. He is still unable to bring up much phlegm. He denies chest pain. He says he had some mild tremors this morning requiring some ativan - Objective Vital Signs & Weight: Vital Signs (12 hours) Temp Pulse Resp BP Pulse Ox 02/16/19 15:30 97.4 F L 110 H 17 127/70 98 02/16/19 14:11 98 20 97 02/16/19 11:52 97.6 F 100 16 118/67 99 02/16/19 08:21 100 02/16/19 08:00 97.5 F L 105 H 16 136/69 100 02/16/19 07:30 95 20 98 Weight Weight 185 lb 3.2 oz I&O: 02/15/19 02/16/19 02/17/19 06:59 06:59 06:59 Intake Total 1761 2232 960 Output Total 275 575 Balance 1486 1657 960 Result Diagrams: 02/15/19 03:51 02/16/19 04:43 Hospitalist ROS - Review of Systems Constitutional: denies: fever, chills Respiratory: denies: dry Cardiovascular: denies: chest pain - Medication Medications: Active Medications Generic Name Dose Route Start Last Admin Trade Name Freq PRN Reason Stop Dose Admin Acetaminophen 650 mg 02/13/19 22:13 02/14/19 09:15 Tylenol PO 650 mg Q4H PRN Administration Headache/Fever/Mild Pain (1-3) Albuterol/Ipratropium 3 ml 02/15/19 18:30 02/16/19 14:11 Duoneb NEB 3 ml [id number] JIM Administration Amlodipine Besylate 10 mg 02/15/19 09:00 02/16/19 09:11 Norvasc PO 10 mg DAILY JIM Administration Doxycycline Hyclate 100 mg 02/16/19 10:00 02/16/19 11:32 Vibramycin PO 100 mg 1000,2200 JIM Administration Enoxaparin Sodium 40 mg 02/14/19 09:00 02/16/19 09:11 Lovenox SC 40 mg 0900 JIM Administration Famotidine 20 mg 02/14/19 09:00 02/16/19 09:11 Pepcid PO 20 mg BID JIM Administration Folic Acid 1 mg 02/15/19 09:00 02/16/19 09:11 Folvite PO 1 mg DAILY JIM Administration Guaifenesin 600 mg 02/15/19 09:00 02/16/19 09:11 Mucinex PO 600 mg Q12HR JIM Administration Multivitamins 10 ml/ Folic 1,011.2 mls @ 0 mls/hr 02/14/19 16:30 02/15/19 16: 34 Acid 1 mg/ Thiamine HCl 100 mg IV 1,011.2 mls / Dextrose/Sodium Chloride Q24HR JIM Administration As Directed Lorazepam 2 mg 02/14/19 15:18 02/16/19 03:25 Ativan PO 2 mg Q2H PRN Administration Anxiety/Agitation Methylprednisolone Sodium Succinate 60 mg 02/15/19 18:00 02/16/19 11:32 Solu-Medrol IVP 60 mg Q6HR JIM Administration Mometasone Furoate/Formoterol Fumar 2 puff 02/15/19 18:30 02/16/19 07:30 Dulera 200 Mcg/5 Mcg Inhaler INH 2 puff BID-RT JIM Administration Thiamine HCl 100 mg 02/15/19 09:00 02/16/19 09:12 Thiamine PO 100 mg DAILY JIM Administration - Exam General Appearance: NAD, awake alert Eye: PERRL, anicteric sclera ENT: normocephalic atraumatic, no oropharyngeal lesions Neck: supple, symmetric, no JVD, no thyromegaly Heart: RRR, no murmur, no gallops, no rubs Respiratory - other findings: diffuse wheezing Gastrointestinal: soft, non-tender, non-distended Extremities: no cyanosis, no clubbing, no edema Skin: normal turgor, no lesions, no rashes Neurological: cranial nerve grossly intact, normal sensation to touch, no focal deficits, no new deficit Musculoskeletal: normal tone, normal strength, no muscle wasting Hosp A/P - Plan CTA chest: no acute PE Chest X ray: no acute disease This is a 58 year old male admitted with COPD exacerbation Acute COPD exacerbation - on IV levaquin, methylprednisolone 60 mg IV q6 hours, increased 02/15. CTA showed no PE, chest X ray showed no acute disease - continue standing duoneb, albuterol prn, mucinex. On dulera and pulmicort added. Continue incentive spirometry every 2 hours - trop negative times three Hyponatremia - improving. S/p banana bag. Stable at 131 - serum osmolarity normal, urine osmolarity low, consistent with euvolemic Transaminitis secondary to alcoholism - improving. AST down to 51, ALT normal ' Acute alcohol withdrawal - ativan q2 hours prn - CIWA protocol - thiamine and folic acid daily Hypertension -controlled. BP 118-127 Continue amlodipine DVT prophyalxis: enoxaparin Code status: full code
[2019-02-16] MEDS: Multivitamins, Adult 10 ML, Folic Acid 1 MG, Thiamine HCl 100 MG in Dextrose 5 %-0.45 %... IV SCH (16:55)
[2019-02-16] MEDS: Budesonide 0.5 MG/2 ML NEB INH SCH (19:32)
[2019-02-16] MEDS: Montelukast Sodium 10 mg Tablet PO SCH (20:17)
[2019-02-17] MEDS: methylPREDNISolone Sod Succ/PF 125 MG/2 ML VIAL IVP SCH ×2 (00:18→05:38)
[2019-02-17 05:18] LABS: Hemoglobin 13.6 g/dL (14.0-18.0); Mean Corpuscular HGB CONC 33.5 g/dL (32.0-36.0); Mean Corpuscular Hemoglobin 33.4 pg (27.0-31.0); Mean Corpuscular Volume 99.7 fL (78.0-98.0); Mean Platelet Volume 7.9 fL (7.4-10.4); Platelet Count 284 thou/uL (130-400); RBC Distribution Width 11.1 % (11.5-14.5); Red Blood Cell (RBC) Count 4.06 mill/uL (4.70-6.10); White Blood Cell (WBC) Count 7.9 thou/uL (4.8-10.8)
[2019-02-17 05:45] LABS: ALT (SGPT) 90 U/L (8-55); AST (SGOT) 92 U/L (5-34); Albumin 3.5 g/dL (3.5-5.0); Alkaline Phosphatase 73 U/L (40-110); Anion Gap 11 mmol/L (10-20); BUN (Urea Nitrogen) 11 mg/dL (8.4-25.7); Bilirubin, Direct 0.4 mg/dL (0.1-0.3); Bilirubin, Total 0.6 mg/dL (0.2-1.2); Calc. Creatinine Clearance 136 mL/min (70-130); Calcium 8.8 mg/dL (7.8-10.44); Carbon Dioxide 26 mmol/L (22-29); Chloride 97 mmol/L (98-107); Estimated GFR-MDRD Greater than 90; Glucose 139 mg/dL (70-105); Potassium 3.8 mmol/L (3.5-5.1); Protein, Total 6.1 g/dL (6.0-8.3); Sodium 130 mmol/L (136-145)
[2019-02-17] MEDS: Mometasone/Formoterol 120 PUFF INHALER INH SCH ×2 (07:44→19:06)
[2019-02-17] MEDS: Budesonide 0.5 MG/2 ML NEB INH SCH ×2 (07:47→19:06)
[2019-02-17] MEDS ORDERED: predniSONE 20 MG TAB PO SCH (09:00)
--- NOTE | 2019-02-17 09:16 | PRG ---
DATE OF SERVICE: 02/17/2019 SUBJECTIVE: This morning, he is better, he is still coughing, still wheezing, but improved. Sputum is relatively clear. OBJECTIVE: VITAL SIGNS: Pulse is 103, temperature 97, blood pressure 130/75, and saturations are 98% on room air. CHEST: Wheezing bilaterally. CARDIAC: Normal S1, S2. No gallops. ABDOMEN: No masses. ASSESSMENT: Asthmatic bronchitis, chronic obstructive pulmonary disease exacerbation, and alcohol abuse. PLAN: Pulmonary alonso, switch him to oral prednisone. Supportive care and PT. Hopefully, disposition in the next several days. We will follow. Job ID: [id number]
[2019-02-17] MEDS: Enoxaparin Sodium 40 MG/0.4 ML SYRINGE SC SCH (09:52)
[2019-02-17] MEDS: Amlodipine 10 MG TAB PO SCH (09:52)
[2019-02-17] MEDS: guaiFENesin/DM ER PO SCH ×2 (09:53→20:56)
[2019-02-17] MEDS: Folic Acid 1 MG TAB PO SCH (09:53)
[2019-02-17] MEDS: Famotidine 20 MG TAB PO SCH ×2 (09:53→20:56)
[2019-02-17] MEDS: Thiamine 100 MG TAB PO SCH (09:53)
[2019-02-17] MEDS: Doxycycline 100 MG CAP PO SCH ×2 (09:53→20:56)
--- NOTE | 2019-02-17 16:05 | PDOC.HOSPP ---
- Subjective Encounter Date: 02/17/19 Encounter Time: 16:03 Subjective: The patient is still unable to bring up any phlegm. He has walked to the bathroom with improved exercise tolerance, but wants to walk down the hallway. He is having less alc withdrawal symptoms. - Objective Vital Signs & Weight: Vital Signs (12 hours) Temp Pulse Resp BP BP Pulse Ox 02/17/19 14:09 112 H 20 98 02/17/19 11:39 98.1 F 106 H 18 131/74 98 02/17/19 10:24 109 H 20 98 02/17/19 09:52 103 H 131/75 02/17/19 07:48 97.4 F L 103 H 18 131/75 99 02/17/19 07:47 118 H 20 98 02/17/19 07:44 118 H 20 98 Weight Weight 185 lb 3.2 oz I&O: 02/16/19 02/17/19 02/18/19 06:59 06:59 06:59 Intake Total 2232 4540 Output Total 575 2500 Balance 1657 2040 Result Diagrams: 02/17/19 04:50 02/17/19 04:50 Hospitalist ROS - Review of Systems Constitutional: denies: fever, chills Respiratory: reports: cough Cardiovascular: denies: chest pain, palpitations, orthopnea - Medication Medications: Active Medications Generic Name Dose Route Start Last Admin Trade Name Freq PRN Reason Stop Dose Admin Acetaminophen 650 mg 02/13/19 22:13 02/14/19 09:15 Tylenol PO 650 mg Q4H PRN Administration Headache/Fever/Mild Pain (1-3) Albuterol/Ipratropium 3 ml 02/15/19 18:30 02/17/19 14:09 Duoneb NEB 3 ml [id number] JIM Administration Amlodipine Besylate 10 mg 02/15/19 09:00 02/17/19 09:52 Norvasc PO 10 mg DAILY JIM Administration Budesonide 0.5 mg 02/16/19 18:30 02/17/19 07:47 Pulmicort Neb Solution INH 0.5 mg BID-RT JIM Administration Doxycycline Hyclate 100 mg 02/16/19 10:00 02/17/19 09:53 Vibramycin PO 100 mg 1000,2200 JIM Administration Enoxaparin Sodium 40 mg 02/14/19 09:00 02/17/19 09:52 Lovenox SC 40 mg 0900 JIM Administration Famotidine 20 mg 02/14/19 09:00 02/17/19 09:53 Pepcid PO 20 mg BID JIM Administration Folic Acid 1 mg 02/15/19 09:00 02/17/19 09:53 Folvite PO 1 mg DAILY JIM Administration Guaifenesin/Dextromethorphan 2 tab 02/17/19 09:00 02/17/19 09:53 Mucinex Dm PO 2 tab Q12HR JIM Administration Multivitamins 10 ml/ Folic 1,011.2 mls @ 0 mls/hr 02/14/19 16:30 02/16/19 16: 55 Acid 1 mg/ Thiamine HCl 100 mg IV 1,011.2 mls / Dextrose/Sodium Chloride Q24HR JIM Administration As Directed Lorazepam 2 mg 02/14/19 15:18 02/16/19 03:25 Ativan PO 2 mg Q2H PRN Administration Anxiety/Agitation Mometasone Furoate/Formoterol Fumar 2 puff 02/15/19 18:30 02/17/19 07:44 Dulera 200 Mcg/5 Mcg Inhaler INH 2 puff BID-RT JIM Administration Montelukast Sodium 10 mg 02/16/19 21:00 02/16/19 20:17 Singulair PO 10 mg QPM JIM Administration Sodium Chloride 10 ml 02/16/19 21:00 02/17/19 09:53 Flush - Normal Saline IVF 10 ml Q12HR JIM Administration Thiamine HCl 100 mg 02/15/19 09:00 02/17/19 09:53 Thiamine PO 100 mg DAILY JIM Administration - Exam General Appearance: NAD, awake alert Eye: PERRL, anicteric sclera ENT: normocephalic atraumatic, no oropharyngeal lesions Neck: supple, symmetric, no JVD, no thyromegaly Heart: RRR, no murmur, no gallops, no rubs Respiratory: CTAB Respiratory - other findings: significant diffuse rhonchi Gastrointestinal: soft, non-tender, non-distended, normal bowel sounds, no palpable masses, no hepatomegaly Extremities: no cyanosis, no clubbing, no edema Skin: normal turgor, no lesions, no rashes Neurological: cranial nerve grossly intact, normal sensation to touch, no focal deficits, no new deficit Hosp A/P - Plan CTA chest: no acute PE Chest X ray: no acute disease This is a 58 year old male admitted with COPD exacerbation Acute COPD exacerbation - on IV levaquin day 3. Continue IV methylprednisolone 60 mg IV q6 hours, increased 02/15. CTA showed no PE, chest X ray showed no acute disease - continue standing duoneb, albuterol prn, mucinex. On dulera and pulmicort, incentive spirometry and acapella - will try to get respiratory to do chest PT - encourage patient to ambulate down the hallway Hyponatremia - improving. S/p banana bag. Sodium 130, continue to monitor - serum osmolarity normal, urine osmolarity low, consistent with euvolemic Transaminitis secondary to alcoholism - worsening again . AST increased to 92 and 90 - check RUQ US tomorrow Acute alcohol withdrawal - ativan q2 hours prn - CIWA protocol - thiamine and folic acid daily Hypertension -controlled. BP 120-130 - Continue amlodipine DVT prophyalxis: enoxaparin Code status: full code
[2019-02-17] MEDS: Multivitamins, Adult 10 ML, Folic Acid 1 MG, Thiamine HCl 100 MG in Dextrose 5 %-0.45 %... IV SCH (17:23)
[2019-02-17] MEDS: predniSONE 20 MG TAB PO SCH (17:23)
[2019-02-17] MEDS: Montelukast Sodium 10 mg Tablet PO SCH (20:56)
[2019-02-17] MEDS: Lorazepam 1 MG TAB PO PRN (21:01)
[2019-02-18 06:09] LABS: Hemoglobin 13.9 g/dL (14.0-18.0); Mean Corpuscular HGB CONC 33.8 g/dL (32.0-36.0); Mean Corpuscular Hemoglobin 33.6 pg (27.0-31.0); Mean Corpuscular Volume 99.4 fL (78.0-98.0); Mean Platelet Volume 7.8 fL (7.4-10.4); Platelet Count 248 thou/uL (130-400); RBC Distribution Width 11.1 % (11.5-14.5); Red Blood Cell (RBC) Count 4.15 mill/uL (4.70-6.10); White Blood Cell (WBC) Count 9.2 thou/uL (4.8-10.8)
[2019-02-18 06:36] LABS: ALT (SGPT) 141 U/L (8-55); AST (SGOT) 119 U/L (5-34); Albumin 3.4 g/dL (3.5-5.0); Alkaline Phosphatase 70 U/L (40-110); Anion Gap 10 mmol/L (10-20); BUN (Urea Nitrogen) 14 mg/dL (8.4-25.7); Bilirubin, Total 0.7 mg/dL (0.2-1.2); Calc. Creatinine Clearance 129 mL/min (70-130); Calcium 8.9 mg/dL (7.8-10.44); Carbon Dioxide 26 mmol/L (22-29); Chloride 101 mmol/L (98-107); Estimated GFR-MDRD Greater than 90; Globulin 2.5 g/dL (2.4-3.5); Glucose 97 mg/dL (70-105); Potassium 3.9 mmol/L (3.5-5.1); Protein, Total 5.9 g/dL (6.0-8.3); Sodium 133 mmol/L (136-145)
[2019-02-18] MEDS: Budesonide 0.5 MG/2 ML NEB INH SCH (07:49)
[2019-02-18] MEDS: Mometasone/Formoterol 120 PUFF INHALER INH SCH (07:49)
[2019-02-18] MEDS: predniSONE 20 MG TAB PO SCH (09:05)
[2019-02-18] MEDS: Famotidine 20 MG TAB PO SCH (09:05)
[2019-02-18] MEDS: Folic Acid 1 MG TAB PO SCH (09:05)
[2019-02-18] MEDS: guaiFENesin/DM ER PO SCH (09:05)
[2019-02-18] MEDS: Amlodipine 10 MG TAB PO SCH (09:05)
[2019-02-18] MEDS: Enoxaparin Sodium 40 MG/0.4 ML SYRINGE SC SCH (09:05)
[2019-02-18] MEDS: Thiamine 100 MG TAB PO SCH (09:06)
[2019-02-18] MEDS: Doxycycline 100 MG CAP PO SCH (09:06)
--- NOTE | 2019-02-18 09:12 | PRG ---
DATE OF SERVICE: 02/18/2019 SUBJECTIVE: Pablo Milian was much improved. Less cough, less shortness of breath. OBJECTIVE: VITAL SIGNS: Saturations are 98% on room air, respiratory rate 20, temperature 98, blood pressure 140/81. CHEST: Minimal wheezing. CARDIAC: Normal S1, S2. No gallops. ABDOMEN: No masses. LABORATORY DATA: Unremarkable. AST 119. IMPRESSION: Alcohol abuse, abnormal LFT, chronic obstructive pulmonary disease exacerbation, asthma, and bronchitis. He was much improved. Pulmonary alonso, he can be discharged to home any time. He needs ongoing counseling for his alcohol abuse. Follow up with his primary care physician. Job ID: [id number]
--- NOTE | 2019-02-18 09:27 | ULT ---
GALLBLADDER ULTRASOUND: Date: 02/18/19 INDICATION: Elevated liver function enzymes, cirrhosis. FINDINGS: There is increased echogenicity diffusely throughout the liver without a discrete lesion evident. The gallbladder wall is thickened and edematous with pericholecystic fluid. Gallbladder wall measures gr eater than 4.0 mm in thickness. Goldman's sign is reported as negative by the mix maker. The common duct is normal in caliber at 4.0 mm. IMPRESSION: 1. Thickened, edematous gallbladder wall with pericholecystic fluid. Recommend clinical correlation for evidence of cholecystitis. No shadowing cholelithiasis visualized. 2. Diffuse increased echogenicity of the liver which may be on the basis of hepatic steatosis and/or hepatocellular disease. POS: OFF
[2019-02-18 15:49] VITALS: BP 164/88; TEMP 97.6
--- NOTE | 2019-02-18 22:30 | DIS ---
DATE OF ADMISSION: 02/13/2019 DATE OF DISCHARGE: 02/18/2019 DISCHARGE DIAGNOSES: 1. Acute chronic obstructive pulmonary disease exacerbation. 2. Hyponatremia. 3. Transaminitis. 4. Acute alcohol withdrawal. 5. Distended gallbladder. 6. Hypertension. CONSULTATIONS: Pulmonary with Franco Pritchett MD PROCEDURES PERFORMED: None. BRIEF HISTORY OF PRESENT ILLNESS: This is a 58-year-old male with past medical history of COPD, who presented to the ER with worsening shortness of breath for the past three days, fatigue, and dyspnea on exertion. The patient was noted to be tachycardic with a heart rate in the low 100s. He had a chest x-ray, which was unremarkable and a CTA of his chest showed no PE. He was admitted for COPD exacerbation. Acute COPD exacerbation: The patient was initially started on DuoNeb p.r.n., albuterol p.r.n., and Mucinex. The patient was noted to have significant wheezing and initially was placed on IV methylprednisolone 40 mg IV q.6 hours. He was also started on IV Levaquin. This was increased to 60 mg IV q6 hours the following day and acapella and incentive spirometry was added. Pulmonary was consulted and added dulera and pulmicort. Levaquin was switched to doxycycline on 02/16. On 02/17 patient was transitioned to oral prednisone 20 mg po bid and chest PT was added. He was monitored for one more day and was felt stable for discharge. He was sent home on a prednisone taper due to persistent wheezing. He will follow up with Dr. Pritchett in 1 week and was advised to follow up with his PCP in a week. The patient will be prescribed doxycycline for an additional two days. The patient was also discharged with Pepcid for GI prophylaxis, as well as Dulera and Singulair which was added by Pulmonary. Acute alcohol withdrawal: The patient reported that he was drinking 32 ounces on a daily basis. He did have a CIWA score of 11 initially and was requiring Ativan p.r.n. On the day of discharge, patient was no longer withdrawing. He was discharged with thiamine and folic acid, and was advised to quit drinking alcohol and consider outpatient rehab. Hyponatremia: The patient had sodium levels of 130-133. He was asymptomatic with this. Serum osmolarity was normal at 284 and urine osmolarity was low at 194, just consistent with beer potomania. The patient can have a repeat sodium drawn as an outpatient. Transaminitis: The patient was noted to have elevated liver function tests with AST of 51 on admission. This increased to 119 on the day of discharge. ALT also increased to 141, but alkaline phosphatase was normal. The patient had an abdominal ultrasound done on 02/18, which showed a distended gallbladder. He also showed evidence of hepatic steatosis. The patient denied any abdominal pain, nausea or vomiting, and did not have any right upper quadrant tenderness. Therefore, he was advised that if he were to have abdominal pain, nausea or vomiting, to come back to the hospital. He was advised to follow up with his PCP and have his liver function tests repeated. Hypertension: The patient will be continued on amlodipine. DISCHARGE PHYSICAL EXAMINATION: VITAL SIGNS: Temperature 97.6, heart rate 113, respiratory rate 17, O2 saturation 97% on room air, and blood pressure 164/88. GENERAL: The patient is alert, awake, and oriented x3, in no acute distress. CVS: Regular rate and rhythm with no murmurs, rubs, or gallops. LUNGS: Persistent wheezing, however, lungs sound much clearer than the day prior. ABDOMEN: Positive bowel sounds, soft, nontender, and nondistended. EXTREMITIES: No edema. PERTINENT LABORATORY DATA: CBC 02/18: Hemoglobin and hematocrit 13.9/41.2, MCV 99.4. BMP 02/18: Sodium was 133. Rest of BMP unremarkable. LFTs 02/18: AST is 119, ALT is 141, alkaline phosphatase is 70. Vitamin B12: 1158. Folate: 17.3. Urine osmolarity 02/14: 194. Serum osmolarity 02/14: 284. PERTINENT IMAGING STUDIES: CTA thorax 02/13: Shows no evidence of PE. Chest x-ray 02/13: No acute disease. Abdominal ultrasound 02/18: Thickened edematous gallbladder with pericholecystic fluid. Diffuse increased echogenicity of the liver, which may represent hepatic steatosis. DISCHARGE CONDITION: Stable. ACTIVITY: As tolerated. DIET: Regular diet. DISCHARGE MEDICATIONS: 1. Pulmicort 2 puffs inhalation b.i.d. 2. Doxycycline 100 mg p.o. b.i.d. for two more days. 3. Famotidine 20 mg p.o. b.i.d. 4. Folic acid 1 mg p.o. daily. 5. Dulera two puffs inhalation b.i.d. 6. Singulair 10 mg p.o. q.p.m. 7. Prednisone 20 mg p.o. b.i.d. 8. Thiamine 100 mg p.o. daily. DISCHARGE INSTRUCTIONS: The patient was advised to follow up with his PCP in a week, Dr. Pritchett in 1-2 weeks and have his liver function tests repeated. He is also advised to come back to the hospital if he has any abdominal pain. Job ID: [id number] [facility]
--- NOTE | 2019-02-20 02:50 | PQF ---
Rukhsana Pablo KELSI, SUSANNA [id number] CLINICAL DOCUMENTATION CLARIFICATION FORM: POST DISCHARGE Addendum to original discharge summary date: ____ Late entry note date: __ DATE: 02/20/19 ATTN: Susanna Payton Please exercise your independent, professional judgment in responding to the clarification form. Clinical indicators are provided on the bottom of this form for your review Please check appropriate box(s): [ ] Acute Respiratory Failure: [ ] with Hypoxia [ ] with Hypercapnia [ ] Acute On Chronic Respiratory Failure: [ ] with Hypoxia [ ] with Hypercapnia [ ] Acute Respiratory Failure due to: (etiology) [ ] ARDS (Acute Respiratory Distress Syndrome) [ ] Chronic Respiratory Failure only [ ] with Hypoxia [ ] with Hypercapnia [ X] Hypoxia [ ] Other diagnosis [ ] Unable to determine In addition, please specify: Present on Admission (POA): [ ] Yes [ ] No [ ] Unable to determine For continuity of documentation, please document condition throughout progress notes and discharge summary. Thank You. CLINICAL INDICATORS - SIGNS / SYMPTOMS / LABS H&P p1 02/13 Dr Mcleod presented to ER with worsening shortness of breath for the last 2 days H&P p1 02/13 Dr Mcleod In ER, the patient's oxygen saturation on room air has been around 88% H&P p1 02/13 Dr Mcleod He has been also tachycardic with heart rate in low 100s Hospitalist PN p1 02/14 Still feels short of breath just walking to the bathroom RISK FACTORS H&P p2 02/13 Acute Exacerbation of COPD H&P p2 02/13 tachycardia Consult p2 02/16 COPD, Chronic Asthma Exacerbation TREATMENTS: H&P p2 02/13 Oxygen to keep saturation more than 92% MAR 02/13 IV Steroid Pulmonary Consult 02/16 Franco Greer (This form is maintained as a part of the permanent medical record) 2014 [employer]. All Rights Reserved [email or web address] [not provided] MTDD
--- NOTE | 2019-02-20 02:51 | PQF ---
Rukhsana Pablo KELSI, SUSANNA [id number] CLINICAL DOCUMENTATION CLARIFICATION FORM: POST DISCHARGE Addendum to original discharge summary date: ____ Late entry note date: __ DATE: 02/20/19 ATTN: Susanna Payton Please exercise your independent, professional judgment in responding to the clarification form. Clinical indicators are provided on the bottom of this form for your review In your clinical opinion based on clinical findings below, can you please identify condition as the reason for Inpatient admission if due to: Please check appropriate box(s): [X ] Acute COPD exacerbation [ ] Asthma Exacerbation [ ] Alcohol Withdrawal [ ] Other condition, please specify For continuity of documentation, please document condition throughout progress notes and discharge summary. Thank You. CLINICAL INDICATORS - SIGNS / SYMPTOMS / LABS H&P p1 02/13 Dr Mcleod presented to ER with worsening shortness of breath for the last 2 days H&P p1 02/13 Dr Mcleod In ER, the patient's oxygen saturation on room air has been around 88% H&P p1 02/13 Dr Mcleod He has been also tachycardic with heart rate in low 100s H&P p1 02/13 Dr Mcleod Social history: Drinks about five drinks a day RISK FACTORS H&P p2 02/13 Acute Exacerbation of COPD H&P p2 02/13 tachycardia H&P p2 02/13 Liver cirrhosis Consult p2 02/16 COPD, Chronic Asthma Exacerbation Hospitalist PN p4 02/14 -Acute alcohol withdrawal TREATMENTS: H&P p2 02/13 Oxygen to keep saturation more than 92% MAR 02/13 IV Steroid Pulmo Consult 02/16 Franco Greer Hospitalist PN p4 02/14 CIWA protocol Hospitalist PN p4 02/14 Ordered ativan q2 hrs PRN (This form is maintained as a part of the permanent medical record) 2014 [employer]. All Rights Reserved [email or web address] [not provided] MTDD
== END 2019-02-18 16:37 | disposition home or self-care (01) | DRG 191 ==
LOC: ERS 17:24 → 2SW 22:00 → OBSVTOIN 22:00
PROVIDERS: ADMIT Internal Medicine; ATTEND Internal Medicine
PROC: HZ2ZZZZ Detoxification Services for Substance Abuse Treatment (ICD-10-PCS; principal; 2019-02-13)
PROC: 3E02340 Introduction of Influenza Vaccine into Muscle, Percutaneous Approach (ICD-10-PCS; 2019-02-14)
DX: J44.1 Chronic obstructive pulmonary disease with (acute) exacerbation (principal); J45.901 Unspecified asthma with (acute) exacerbation; E87.1 Hypo-osmolality and hyponatremia; F10.239 Alcohol dependence with withdrawal, unspecified; R74.0 Nonspecific elevation of levels of transaminase and lactic acid dehydrogenase [LDH]; K82.8 Other specified diseases of gallbladder; I10 Essential (primary) hypertension; K74.60 Unspecified cirrhosis of liver; R09.02 Hypoxemia; Z87.891 Personal history of nicotine dependence; Z88.1 Allergy status to other antibiotic agents; Z88.8 Allergy status to other drugs, medicaments and biological substances; Z23 Encounter for immunization
CPT/HCPCS: 36415; 71045; 71275; 76705; 80048; 80053; 80076; 82550; 82607; 82746; 83735; 83930; 83935; 84100; 84484; 85025; 85027; 90471; 90686; 93005; 94640; 94644; 94667; 94668; 96374; G0008; J1650; J1956; J2920; J2930; J3411; J3475; J7042; J7512; J7611; J7620; J7626; Q9967

== ENCOUNTER 2019-03-10 16:45 | Emergency (ER) | payer SELFPAY ==
--- NOTE | 2019-03-10 17:05 | RAD ---
XR Chest Pa Lat STANDARD HISTORY: Cough COMPARISON: 02/13/2019 FINDINGS: The heart size is normal. The lungs are well expanded without focal areas of consolidation, pneumothorax or large pleural effusions. Chronic changes in the right lung are again seen. IMPRESSION: No radiographic evidence of acute cardiopulmonary process.
[2019-03-10] MEDS ORDERED: predniSONE 20 MG TAB ONE (18:24)
[2019-03-10] MEDS ORDERED: Albuterol Sulfate 2.5 mg/3 ml Neb ONE (18:33)
== END 2019-03-10 19:26 | disposition home or self-care (01) ==
LOC: ERS 16:45
DX: J44.1 Chronic obstructive pulmonary disease with (acute) exacerbation (principal); J06.9 Acute upper respiratory infection, unspecified; I10 Essential (primary) hypertension; Z87.891 Personal history of nicotine dependence; Z79.899 Other long term (current) drug therapy
CPT/HCPCS: 71046; 94640; J7512; J7611; J7620

== ENCOUNTER 2019-05-01 15:40 | Emergency (ER) | payer SELFPAY ==
--- NOTE | 2019-05-01 16:32 | RAD ---
PORTABLE AP CHEST X-RAY: 05/01/19 HISTORY: Patient states chest discomfort and hurting in lungs. Coughing. COMPARISON: 03/10/19. FINDINGS: Cardiac silhouette and pulmonary vasculature are within normal limits. Pleural and parenchymal change s are again seen at the right lung base with scattered linear densities seen in the right mid lung zo ne and right lung base likely related to chronic lung changes with pleural and parenchymal scarring r ight lung base. The left lung remains clear. No area of consolidation or pleural fluid is seen. The m ost inferior aspect left lateral costophrenic angle is excluded from view. There has been no interval change from prior exam. IMPRESSION: 1. No acute cardiopulmonary process. 2. Stable chronic lung changes right hemithorax. POS: [facility]
[2019-05-01] MEDS ORDERED: predniSONE 20 MG TAB ONE (17:04)
== END 2019-05-01 17:10 | disposition home or self-care (01) ==
LOC: ERS 15:40
DX: J44.1 Chronic obstructive pulmonary disease with (acute) exacerbation (principal); I10 Essential (primary) hypertension; Z87.891 Personal history of nicotine dependence
CPT/HCPCS: 71045; 93005; J7512

== ENCOUNTER 2019-06-01 17:55 | Emergency (ER) | payer SELFPAY ==
[2019-06-01 18:47] LABS: #Basophils 0.1 thou/uL (0.0-0.2); #Eosinphils 0.2 thou/uL (0.0-0.7); #Lymphocytes 2.4 thou/uL (1.20-3.40); #Monocytes 0.7 thou/uL (0.11-0.59); #Neutrophils 3.7 thou/uL (1.40-6.50); %Basophils 1.8 % (0.0-1.0); %Eosinophils 2.9 % (0.0-10.0); %Lymphocytes 34.3 % (21.0-51.0); %Monocytes 9.4 % (0.0-10.0); %Neutrophils 51.7 % (42.0-75.0); Hemoglobin 15.9 g/dL (14.0-18.0); Mean Corpuscular Hemoglobin 34.7 pg (27.0-31.0); Mean Corpuscular Volume 99.2 fL (78.0-98.0); Platelet Count 224 thou/uL (130-400); RBC Distribution Width 11.1 % (11.5-14.5); Red Blood Cell (RBC) Count 4.58 mill/uL (4.70-6.10); White Blood Cell (WBC) Count 7.1 thou/uL (4.8-10.8)
--- NOTE | 2019-06-01 18:53 | RAD ---
Portable frontal chest radiograph: 06/01/2019 COMPARISON: 05/01/2019 HISTORY: Dyspnea, COPD FINDINGS: Stable increased linear interstitial density with pulmonary hyperinflation, consistent with the provided history of COPD. Stable scarring of the right lung base with blunting of the right costophrenic angle. IMPRESSION: Stable appearance of the chest as detailed above. No acute findings.
[2019-06-01 19:09] LABS: ALT (SGPT) 87 U/L (8-55); AST (SGOT) 77 U/L (5-34); Albumin 4.4 g/dL (3.5-5.0); Alkaline Phosphatase 107 U/L (40-110); Anion Gap 15 mmol/L (10-20); BUN (Urea Nitrogen) 5 mg/dL (8.4-25.7); Bilirubin, Total 0.6 mg/dL (0.2-1.2); Calc. Creatinine Clearance 0 mL/min (70-130); Calcium 9.2 mg/dL (7.8-10.44); Carbon Dioxide 22 mmol/L (22-29); Chloride 96 mmol/L (98-107); Estimated GFR-MDRD Greater than 90; Globulin 3.3 g/dL (2.4-3.5); Glucose 97 mg/dL (70-105); Protein, Total 7.7 g/dL (6.0-8.3); Sodium 129 mmol/L (136-145)
[2019-06-01] MEDS ORDERED: Dexamethasone 10 MG/ML VIAL ONE (20:59)
[2019-06-01] MEDS ORDERED: Dexamethasone 10 MG/ML VIAL IM SCH (21:15)
== END 2019-06-01 22:17 | disposition left against medical advice (07) ==
LOC: ERS 17:55
DX: Z53.21 Procedure and treatment not carried out due to patient leaving prior to being seen by health care provider (principal)
CPT/HCPCS: 36415; 71045; 80053; 85025; 93005; 94760; J1100; J7620

== ENCOUNTER 2019-07-15 19:55 | Emergency (ER) | payer SELFPAY ==
[2019-07-15 20:26] LABS: #Basophils 0.2 thou/uL (0.0-0.2); #Eosinphils 0.5 thou/uL (0.0-0.7); #Lymphocytes 2.8 thou/uL (1.20-3.40); #Monocytes 0.8 thou/uL (0.11-0.59); #Neutrophils 4.2 thou/uL (1.40-6.50); %Eosinophils 6.1 % (0.0-10.0); %Monocytes 9.5 % (0.0-10.0); %Neutrophils 49.4 % (42.0-75.0); Hemoglobin 15.3 g/dL (14.0-18.0); Mean Corpuscular HGB CONC 34.5 g/dL (32.0-36.0); Mean Corpuscular Hemoglobin 34.2 pg (27.0-31.0); Mean Corpuscular Volume 98.9 fL (78.0-98.0); Mean Platelet Volume 7.7 fL (7.4-10.4); Platelet Count 249 thou/uL (130-400); RBC Distribution Width 11.7 % (11.5-14.5); Red Blood Cell (RBC) Count 4.49 mill/uL (4.70-6.10); White Blood Cell (WBC) Count 8.4 thou/uL (4.8-10.8)
[2019-07-15 20:48] LABS: ALT (SGPT) 59 U/L (8-55); AST (SGOT) 79 U/L (5-34); Albumin 4.1 g/dL (3.5-5.0); Alkaline Phosphatase 118 U/L (40-110); Anion Gap 16 mmol/L (10-20); BUN (Urea Nitrogen) 8 mg/dL (8.4-25.7); Bilirubin, Total 0.6 mg/dL (0.2-1.2); Calc. Creatinine Clearance 0 mL/min (70-130); Calcium 9.1 mg/dL (7.8-10.44); Carbon Dioxide 22 mmol/L (22-29); Chloride 99 mmol/L (98-107); Estimated GFR-MDRD Greater than 90; Globulin 3.5 g/dL (2.4-3.5); Glucose 78 mg/dL (70-105); Protein, Total 7.6 g/dL (6.0-8.3); Sodium 133 mmol/L (136-145)
--- NOTE | 2019-07-15 21:00 | RAD ---
PORTABLE CHEST: 07/15/19 PROVIDED CLINICAL HISTORY: None. FINDINGS: Comparison is made with a study dated 06/01/19. Cardiac and mediastinal silhouette is unchanged in appearance. Blunting of the right costophrenic ang le persists. No focal consolidation, pleural fluid, or pneumothorax apparent. IMPRESSION: Stable radiographic appearance of the chest. POS: [facility]
[2019-07-15] MEDS ORDERED: predniSONE 20 MG TAB ONE (21:20)
[2019-07-15] MEDS ORDERED: Magnesium 2 GM/50 ML BAG (IN WATER) ONE (22:30)
--- NOTE | 2019-07-16 13:14 | EKG ---
Test Reason : SOB Blood Pressure : / mmHG Vent. Rate : 093 BPM Atrial Rate : 093 BPM P-R Int : 168 ms QRS Dur : 084 ms QT Int : 356 ms P-R-T Axes : 107 065 063 degrees QTc Int : 442 ms Normal sinus rhythm Normal ECG Confirmed by RENE TOBIAS DO ([id number]), manager editorial HIWOT MURPHY ([id number]) on 07/16/2019 1:14:30 PM Referred By: MICHELINE Confirmed By:RENE TOBIAS DO
== END 2019-07-15 23:44 | disposition home or self-care (01) ==
LOC: ERS 19:55
DX: J44.1 Chronic obstructive pulmonary disease with (acute) exacerbation (principal); I10 Essential (primary) hypertension; Z87.891 Personal history of nicotine dependence
CPT/HCPCS: 71045; 80053; 84484; 85025; 93005; 96365; J3475; J7512

== ENCOUNTER 2019-08-16 17:49 | Inpatient (IN) | payer OTHER, SELFPAY ==
[2019-08-16] MEDS ORDERED: Magnesium 2 GM/50 ML BAG (IN WATER) ONE (18:40)
[2019-08-16] MEDS ORDERED: methylPREDNISolone Sod Succ/PF 125 MG/2 ML VIAL ONE (18:40)
[2019-08-16] MEDS ORDERED: Albuterol 200 PUFF (6.7GM INHALER) ONE (18:44)
[2019-08-16 18:54] LABS: #Basophils 0.1 thou/uL (0.0-0.2); #Eosinphils 0.5 thou/uL (0.0-0.7); #Lymphocytes 2.3 thou/uL (1.20-3.40); #Monocytes 0.5 thou/uL (0.11-0.59); #Neutrophils 3.1 thou/uL (1.40-6.50); %Basophils 0.8 % (0.0-1.0); %Eosinophils 7.9 % (0.0-10.0); %Lymphocytes 35.9 % (21.0-51.0); %Monocytes 7.5 % (0.0-10.0); %Neutrophils 47.9 % (42.0-75.0); Hemoglobin 14.6 g/dL (14.0-18.0); Mean Corpuscular HGB CONC 34.9 g/dL (32.0-36.0); Mean Corpuscular Hemoglobin 35.1 pg (27.0-31.0); Platelet Count 234 thou/uL (130-400); RBC Distribution Width 11.8 % (11.5-14.5); Red Blood Cell (RBC) Count 4.16 mill/uL (4.70-6.10); White Blood Cell (WBC) Count 6.5 thou/uL (4.8-10.8)
[2019-08-16 19:21] LABS: ALT (SGPT) 91 U/L (8-55); AST (SGOT) 135 U/L (5-34); Albumin 4.1 g/dL (3.5-5.0); Alkaline Phosphatase 121 U/L (40-110); Anion Gap 19 mmol/L (10-20); BUN (Urea Nitrogen) 6 mg/dL (8.4-25.7); Bilirubin, Total 0.6 mg/dL (0.2-1.2); CK (CPK) 164 U/L (30-200); Calc. Creatinine Clearance 0 mL/min (70-130); Calcium 8.7 mg/dL (7.8-10.44); Carbon Dioxide 21 mmol/L (22-29); Chloride 93 mmol/L (98-107); Estimated GFR-MDRD 90; Globulin 2.9 g/dL (2.4-3.5); Glucose 93 mg/dL (70-105); Potassium 4.8 mmol/L (3.5-5.1); Sodium 128 mmol/L (136-145)
--- NOTE | 2019-08-16 19:22 | RAD ---
CHEST ONE VIEW: History: COPD Comparison: 07-15-2019 FINDINGS: Chronic appearing scar and pleural thickening, right lung base, extending to the mediastinum. Volume loss in the right lung base. The left lung is relatively clear. No acute osseous abnormality. IMPRESSION: Chronic findings. No acute intrathoracic abnormality. POS: [facility]
[2019-08-16] MEDS ORDERED: Ketorolac Tromethamine 30 MG/ML VIAL ONE (21:53)
[2019-08-16] MEDS ORDERED: Acetaminophen 325 MG TAB PO PRN (22:15)
[2019-08-16] MEDS ORDERED: Senokot S 8.6-50 MG TAB PO PRN (22:15)
[2019-08-16] MEDS ORDERED: Bisacodyl 10 MG SUPP PR PRN (22:15)
[2019-08-16] MEDS ORDERED: Albuterol Sulfate 2.5 mg/3 ml Neb NEB PRN (22:18)
[2019-08-16] MEDS ORDERED: Lorazepam 1 MG TAB PO PRN (22:18)
[2019-08-16] MEDS ORDERED: cloNIDine 0.1 MG TAB PO PRN (22:22)
[2019-08-16] MEDS ORDERED: Albuterol Sulfate 2.5 mg/3 ml Neb NEB SCH (22:30)
[2019-08-16] MEDS ORDERED: Diazepam 5 MG TAB PO PRN (22:53)
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
[2019-08-16] MEDS ORDERED: Thiamine HCl 200 MG/2 ML VIAL IM SCH (23:00)
[2019-08-16] MEDS ORDERED: Diazepam 5 MG TAB PO SCH (23:00)
[2019-08-16] MEDS ORDERED: Albuterol 200 PUFF (6.7GM INHALER) INH PRN (23:13)
[2019-08-16 23:33] VITALS: BMI 26.2
[2019-08-17] MEDS: methylPREDNISolone Sod Succ 40 MG VIAL IVP SCH ×5 (00:10→23:31)
[2019-08-17] MEDS ORDERED: Albuterol 200 PUFF (6.7GM INHALER) INH SCH (01:00)
[2019-08-17] MEDS: Albuterol 200 PUFF (6.7GM INHALER) INH SCH ×4 (02:28→14:19)
[2019-08-17] MEDS ORDERED: Diazepam 5 MG TAB PO PRN (04:00)
[2019-08-17 06:08] LABS: #Lymphocytes 0.5 thou/uL (1.20-3.40); #Neutrophils 3.1 thou/uL (1.40-6.50); %Lymphocytes 14.8 % (21.0-51.0); %Monocytes 0.4 % (0.0-10.0); %Neutrophils 84.8 % (42.0-75.0); Hemoglobin 15.1 g/dL (14.0-18.0); Mean Corpuscular Hemoglobin 33.4 pg (27.0-31.0); Mean Platelet Volume 8.4 fL (7.4-10.4); Platelet Count 192 thou/uL (130-400); RBC Distribution Width 11.8 % (11.5-14.5); White Blood Cell (WBC) Count 3.6 thou/uL (4.8-10.8)
[2019-08-17 06:20] LABS: ALT (SGPT) 88 U/L (8-55); AST (SGOT) 107 U/L (5-34); Albumin 4.1 g/dL (3.5-5.0); Alkaline Phosphatase 126 U/L (40-110); Anion Gap 15 mmol/L (10-20); BUN (Urea Nitrogen) 8 mg/dL (8.4-25.7); Bilirubin, Total 0.8 mg/dL (0.2-1.2); Calc. Creatinine Clearance 113 mL/min (70-130); Calcium 9.1 mg/dL (7.8-10.44); Carbon Dioxide 21 mmol/L (22-29); Chloride 97 mmol/L (98-107); Estimated GFR-MDRD 86; Globulin 3.4 g/dL (2.4-3.5); Glucose 146 mg/dL (70-105); Potassium 4.8 mmol/L (3.5-5.1); Protein, Total 7.5 g/dL (6.0-8.3); Sodium 128 mmol/L (136-145)
[2019-08-17] MEDS: Famotidine 20 MG TAB PO SCH ×2 (09:09→21:10)
[2019-08-17] MEDS: guaiFENesin ER 600 MG TAB PO SCH ×2 (09:09→21:10)
[2019-08-17] MEDS: Folic Acid 1 MG TAB PO SCH (09:09)
[2019-08-17] MEDS: Saccharomyces boulardii 250 MG CAP PO SCH (09:09)
[2019-08-17] MEDS: Thiamine 100 MG TAB PO SCH (09:09)
[2019-08-17] MEDS: Magnesium Oxide 400 MG TAB PO SCH (09:09)
[2019-08-17] MEDS: Multivitamin W/ Minerals 1 TAB PO SCH (09:09)
[2019-08-17 11:37] LABS: SARS-CoV-2 MS2 Positive; SARS-CoV-2 N Gene Negative; SARS-CoV-2 S Gene Negative; SARS-CoV-2 orf1ab Negative
--- NOTE | 2019-08-17 16:03 | PDOC.HOSPP ---
- Subjective Encounter Date: 08/17/19 Encounter Time: 16:00 Subjective: f/u for COPD exacerbation and ruled out for COVID-19. Receiving Solumedrol/ Duonebs and maintaining O2 sats on RA. - Objective Vital Signs & Weight: Vital Signs (12 hours) Temp Pulse Resp BP BP Pulse Ox 08/17/19 11:00 164/90 H 08/17/19 09:18 185/115 H 08/17/19 08:00 97.9 F 100 18 97 Weight Weight 199 lb I&O: 08/16/19 08/17/19 08/18/19 06:59 06:59 06:59 Output Total 700 Balance -700 Result Diagrams: 08/17/19 05:47 08/17/19 05:47 Additional Labs: Microbiology 08/17/19 01:25 Stool - Pending C. difficile GDH Antigen & Toxins - Final 08/17/19 01:25 Stool Stool Lactoferrin - Final 08/17/19 01:25 Stool Rapid Parasite Screen - Final 08/17/19 01:25 Stool Campylobacter Antigen Assay - Final 08/17/19 01:25 Stool Shiga Toxin Test - Final 08/17/19 01:25 Stool Stool Culture - Preliminary Laboratory Tests 08/16/19 08/16/19 08/16/19 18:41 18:41 21:28 Sodium 128 L AST 135 H ALT 91 H Alkaline Phosphatase 121 H B-Natriuretic Peptide 18.1 COVID-19 PCR Not Detected Hospitalist ROS - Medication Medications: Active Medications Generic Name Dose Route Start Last Admin Trade Name Freq PRN Reason Stop Dose Admin Acetaminophen 650 mg 08/16/19 22:15 08/17/19 09:19 Tylenol PO 650 mg Q4H PRN Administration Headache/Fever/Mild Pain (1-3) Albuterol Sulfate 2 puff 08/17/19 02:30 08/17/19 14:19 Proventil Hfa INH 2 puff [id number] JIM Administration Clonidine 0.1 mg 08/16/19 22:22 08/17/19 09:18 Catapres PO 0.1 mg Q4H PRN Administration SBP Greater Than 180 Famotidine 20 mg 08/17/19 09:00 08/17/19 09:09 Pepcid PO 20 mg BID JIM Administration Folic Acid 1 mg 08/17/19 09:00 08/17/19 09:09 Folvite PO 1 mg DAILY JIM Administration Guaifenesin 600 mg 08/17/19 09:00 08/17/19 09:09 Mucinex PO 600 mg Q12HR JIM Administration Levofloxacin 500 mg/ Device 100 mls @ 100 mls/hr 08/16/19 23:59 08/17/19 00: 11 IVPB 100 mls Q24HR JIM Administration Iron/Minerals/Multivitamins 1 tab 08/17/19 09:00 08/17/19 09:09 Theragran M PO 1 tab DAILY JIM Administration Magnesium Oxide 400 mg 08/17/19 09:00 08/17/19 09:09 Magnesium Oxide PO 400 mg DAILY JIM Administration Methylprednisolone Sodium Succinate 40 mg 08/16/19 23:59 08/17/19 11:15 Solu-Medrol IVP 40 mg Q6HR JIM Administration Saccharomyces Boulardii 250 mg 08/17/19 09:00 08/17/19 09:09 Florastor PO 250 mg DAILY JIM Administration Thiamine HCl 100 mg 08/17/19 09:00 08/17/19 09:09 Thiamine PO 100 mg DAILY JIM Administration - Exam General Appearance: awake alert Eye: PERRL, anicteric sclera ENT: normocephalic atraumatic, no oropharyngeal lesions Neck: supple, symmetric, no JVD, no thyromegaly Heart: RRR, no murmur, no gallops, no rubs, normal peripheral pulses Heart - other findings: S1, S2 Respiratory - other findings: Diminished bilat, I/E wheezes Gastrointestinal: soft, non-tender, non-distended, normal bowel sounds, no palpable masses Extremities: no cyanosis, no clubbing, no edema Skin: normal turgor, no lesions Neurological: cranial nerve grossly intact, no new deficit Musculoskeletal: normal tone, generalized weakness Psychiatric: normal affect, A&O x 3 Hosp A/P (1) Acute exacerbation of chronic obstructive pulmonary disease (COPD) Code(s): J44.1 - CHRONIC OBSTRUCTIVE PULMONARY DISEASE W (ACUTE) EXACERBATION Status: Acute Plan: Continue Solumedrol, Add Duonebs q4h, Add Dulera 2 puffs BID, Levaquin 500mg daily (2) Acute hypoxemic respiratory failure Code(s): J96.01 - ACUTE RESPIRATORY FAILURE WITH HYPOXIA Status: Acute (3) Transaminitis Code(s): R74.0 - NONSPEC ELEV OF LEVELS OF TRANSAMNS & LACTIC ACID DEHYDRGNSE Status: Acute Plan: Secondary to ETOH abuse (4) Acute diarrhea Code(s): R19.7 - DIARRHEA, UNSPECIFIED Status: Acute Plan: Likely functional, no infectious process identified, Imodium PRN (5) Alcohol abuse Code(s): F10.10 - ALCOHOL ABUSE, UNCOMPLICATED Status: Chronic Plan: Chronic alcoholism (6) Hypertension Code(s): I10 - ESSENTIAL (PRIMARY) HYPERTENSION Status: Chronic Qualifiers: Hypertension type: essential hypertension Plan: Uncontrolled, start Amlodipine 10mg daily - Plan continue antibiotics, social insurance specialist, respiratory therapy, out of bed/ambulate , DVT proph w/SCDs Continue pulmonary support Add Dulera 2 puffs BID Continue Solumedrol Add Duonebs q4h ASE protocol Resume Amlodipine 10mg daily AM lab: CMP Convert to inpt status
[2019-08-17] MEDS ORDERED: Loperamide HCl 1 MG/7.5 ML UDCUP PO PRN (16:19)
[2019-08-17] MEDS ORDERED: Amlodipine 10 MG TAB PO SCH (16:30)
[2019-08-17] MEDS ORDERED: Albuterol 200 PUFF (6.7GM INHALER) INH PRN (16:33)
[2019-08-17] MEDS: Mometasone 200 MCG/Formoterol 5 MCG 120 PUFF INHALER INH SCH (18:33)
[2019-08-17] MEDS ORDERED: Enoxaparin Sodium 40 MG/0.4 ML SYRINGE SC SCH (21:00)
[2019-08-18] MEDS: methylPREDNISolone Sod Succ 40 MG VIAL IVP SCH (05:49)
[2019-08-18 06:18] LABS: ALT (SGPT) 66 U/L (8-55); AST (SGOT) 60 U/L (5-34); Albumin 3.8 g/dL (3.5-5.0); Alkaline Phosphatase 108 U/L (40-110); Anion Gap 16 mmol/L (10-20); BUN (Urea Nitrogen) 9 mg/dL (8.4-25.7); Bilirubin, Total 0.8 mg/dL (0.2-1.2); Calc. Creatinine Clearance 130 mL/min (70-130); Carbon Dioxide 20 mmol/L (22-29); Chloride 97 mmol/L (98-107); Estimated GFR-MDRD Greater than 90; Globulin 3.5 g/dL (2.4-3.5); Glucose 150 mg/dL (70-105); Potassium 4.4 mmol/L (3.5-5.1); Protein, Total 7.3 g/dL (6.0-8.3); Sodium 129 mmol/L (136-145)
[2019-08-18] MEDS: Mometasone 200 MCG/Formoterol 5 MCG 120 PUFF INHALER INH SCH (07:18)
[2019-08-18 07:26] VITALS: BP 145/87; TEMP 97.8
[2019-08-18] MEDS: Saccharomyces boulardii 250 MG CAP PO SCH (08:21)
[2019-08-18] MEDS: Magnesium Oxide 400 MG TAB PO SCH (08:21)
[2019-08-18] MEDS: guaiFENesin ER 600 MG TAB PO SCH (08:22)
[2019-08-18] MEDS: Famotidine 20 MG TAB PO SCH (08:22)
[2019-08-18] MEDS: Folic Acid 1 MG TAB PO SCH (08:22)
[2019-08-18] MEDS: Thiamine 100 MG TAB PO SCH (08:22)
[2019-08-18] MEDS: Multivitamin W/ Minerals 1 TAB PO SCH (08:22)
[2019-08-18] MEDS ORDERED: Amlodipine 10 MG TAB PO SCH ×2 (09:00)
--- NOTE | 2019-08-18 12:56 | DIS ---
DATE OF ADMISSION: 08/16/2019 DATE OF DISCHARGE: 08/18/2019 DISCHARGE DIAGNOSIS: 1. Acute exacerbation of chronic obstructive pulmonary disease, resolving. 2. Acute hypoxic respiratory failure, resolved. 3. Transaminitis secondary to alcohol abuse. 4. Acute diarrhea, likely functional. No infectious process identified. 5. Alcohol abuse, chronic. 6. Hypertension, stable. 7. Hyponatremia secondary to alcohol abuse. CONSULTATIONS: None. PERTINENT LABORATORY AND X-RAY FINDINGS: Sodium ranged between 128 to 129. AST ranged between 60 to 135, ALT ranged between 66 to 91, alkaline phosphatase ranged between 108 to 126. BNP 18.1. CBC showed a white blood cell count ranging between 3.6 to 6.5. MCV 101. COVID-19 PCR not detected on 08/16/2019. Stool culture dated 08/17/2019, showed moderate normal enteric sandrine. Campylobacter and Shigella negative on 08/17/2019. GERD. Giardia and Cryptosporidium negative on 08/17/2019. C difficile antigen and toxin dated 08/17/2019 negative. Portable chest x-ray dated 08/16/2019, showed chronic changes without acute infiltrate. HOSPITAL COURSE: The patient was initially admitted to the medical floor after initially presenting with increased shortness of breath in the context of chronic obstructive pulmonary disease and prior tobacco abuse. The patient underwent evaluation and initially placed on oxygen supplementation and given bronchodilator therapy for COPD exacerbation. The patient also received IV Solu-Medrol and DuoNeb. The patient was slow to clinically improved initially with oxygen supplementation and continued on IV Solu-Medrol throughout the hospital course. The patient also received IV fluids and general supportive management including multivitamin and folic acid administration in the context of alcohol abuse. The patient was given resources for alcohol cessation programs on an outpatient basis. Overall, the patient did clinically improve, maintaining O2 saturations on room air in the mid upper 90% range. I have examined the patient at the time of discharge and discussed followup instructions. The patient verbalized understanding and in agreement and ready for discharge on 08/18/2019. DISCHARGE MEDICATIONS: 1. ProAir HFA two puffs inhaled q.4 hours p.r.n. 2. Amlodipine 10 mg p.o. daily. 3. DuoNeb 3 mL nebulized q.i.d. p.r.n. 4. Dulera two puffs inhaled b.i.d. 5. Prednisone 20 mg take two tablets p.o. daily x3 days, followed by one tablet p.o. daily x3 days, followed by half a tablet p.o. daily x3 days. FOLLOWUP: The patient may follow up with Dr. Adolph Lopez within 7 days of discharge. CONDITION ON DISCHARGE: Stable. ACTIVITY: Ad-jamey. DIET: Heart healthy. CODE STATUS: Full. DISPOSITION: Home on 08/18/2019. TIME SPENT: Total time preparing and coordinating discharge, 34 minutes. Job ID: [id number]
== END 2019-08-18 11:50 | disposition home or self-care (01) | DRG 189 ==
LOC: ERS 17:49 → T4-A 21:28 → OBSVTOIN 21:28
PROVIDERS: ADMIT Internal Medicine; ATTEND Internal Medicine
PROC: 8E0ZXY6 Isolation (ICD-10-PCS; principal; 2019-08-16)
DX: J96.01 Acute respiratory failure with hypoxia (principal); J44.1 Chronic obstructive pulmonary disease with (acute) exacerbation; E87.1 Hypo-osmolality and hyponatremia; F10.10 Alcohol abuse, uncomplicated; R74.0 Nonspecific elevation of levels of transaminase and lactic acid dehydrogenase [LDH]; Z20.828 Contact with and (suspected) exposure to other viral communicable diseases; K59.1 Functional diarrhea; I10 Essential (primary) hypertension; K74.60 Unspecified cirrhosis of liver; R94.5 Abnormal results of liver function studies; K21.9 Gastro-esophageal reflux disease without esophagitis; Z89.012 Acquired absence of left thumb; Z87.891 Personal history of nicotine dependence; Z88.1 Allergy status to other antibiotic agents; Z88.6 Allergy status to analgesic agent
CPT/HCPCS: 36415; 36416; 71045; 80053; 82550; 83630; 83880; 83930; 84484; 85025; 87045; 87046; 87324; 87328; 87329; 87427; 87449; 87635; 93005; 94664; 94760; 96365; 96375; J1650; J1885; J1956; J2920; J2930; J3411; J3475; J7611; J7620; U0003

== ENCOUNTER 2019-08-23 17:19 | Emergency (ER) | payer OTHER, SELFPAY ==
[2019-08-23] MEDS ORDERED: Albuterol 200 PUFF (6.7GM INHALER) ONE (17:35)
[2019-08-23 17:49] LABS: Hemoglobin 13.8 g/dL (14.0-18.0); Mean Corpuscular HGB CONC 34.1 g/dL (32.0-36.0); Mean Corpuscular Hemoglobin 34.6 pg (27.0-31.0); Mean Platelet Volume 7.8 fL (7.4-10.4); Platelet Count 238 thou/uL (130-400); RBC Distribution Width 11.6 % (11.5-14.5); Red Blood Cell (RBC) Count 3.98 mill/uL (4.70-6.10); White Blood Cell (WBC) Count 9.5 thou/uL (4.8-10.8)
--- NOTE | 2019-08-23 18:05 | RAD ---
Exam: Chest one view HISTORY:COPD. Bronchitis. Weakness. Comparison: 08/16/2019 FINDINGS: Cardiac silhouette: Normal Aorta: Unremarkable Pulmonary vessels: Normal Costophrenic angles: Clear LUNGS: No masses or consolidation. Chronic changes in the right lung with tenting of the right hemidi aphragm Pneumothorax: None Osseous abnormalities: None IMPRESSION: 1. Chronic changes in the right lung. 2. No acute cardiopulmonary process.
[2019-08-23 18:09] LABS: ALT (SGPT) 106 U/L (8-55); AST (SGOT) 127 U/L (5-34); Albumin 3.9 g/dL (3.5-5.0); Alkaline Phosphatase 116 U/L (40-110); Anion Gap 18 mmol/L (10-20); BUN (Urea Nitrogen) 9 mg/dL (8.4-25.7); Bilirubin, Total 0.5 mg/dL (0.2-1.2); CK (CPK) 67 U/L (30-200); Calc. Creatinine Clearance 0 mL/min (70-130); Calcium 8.2 mg/dL (7.8-10.44); Carbon Dioxide 18 mmol/L (22-29); Chloride 93 mmol/L (98-107); Estimated GFR-MDRD Greater than 90; Globulin 2.8 g/dL (2.4-3.5); Glucose 84 mg/dL (70-105); Potassium 5.1 mmol/L (3.5-5.1); Protein, Total 6.7 g/dL (6.0-8.3); Sodium 124 mmol/L (136-145)
[2019-08-23 18:11] LABS: Band 3 % (5-11); Eosinophils 4 % (0-10); Lymphocytes 28 % (21-51); MDiff Complete? YES; Monocytes 8 % (0-10); Neutrophil 47 % (42-75); Platelet Morphology Comment Appears Adequate; RBC Morphology Normal; Reactive Lymphocytes 9 % (0-10)
--- NOTE | 2019-08-25 16:09 | EKG ---
Test Reason : Blood Pressure : / mmHG Vent. Rate : 096 BPM Atrial Rate : 096 BPM P-R Int : 178 ms QRS Dur : 086 ms QT Int : 334 ms P-R-T Axes : 078 071 071 degrees QTc Int : 421 ms Normal sinus rhythm Normal ECG Confirmed by MONET ACHARYA DO ([id number]), editorial assistant HIWOT MURPHY ([id number]) on 08/25/2019 4:09:09 PM Referred By: Confirmed By:MONET ACHARYA DO
== END 2019-08-23 22:37 | disposition home or self-care (01) ==
LOC: ERS 17:19
DX: F10.129 Alcohol abuse with intoxication, unspecified (principal); J44.9 Chronic obstructive pulmonary disease, unspecified; I10 Essential (primary) hypertension; Z87.891 Personal history of nicotine dependence
CPT/HCPCS: 36415; 71045; 80053; 80307; 82550; 84484; 85025; 93005; 94760

== ENCOUNTER 2020-02-19 17:12 | Inpatient (IN) | payer SELFPAY ==
[2020-02-19] MEDS ORDERED: methylPREDNISolone Sod Succ/PF 125 MG/2 ML VIAL ONE (17:47)
[2020-02-19] MEDS ORDERED: Albuterol 200 PUFF (6.7GM INHALER) ONE (17:48)
--- NOTE | 2020-02-19 17:52 | RAD ---
EXAM: Single view of the chest HISTORY: Asthma and shortness of breath COMPARISON: 10/19/2019; CTA chest 02/13/2019 FINDINGS: Single view of the chest shows an enlarged but stable cardiomediastinal silhouette. Stable blunting of the right costophrenic angle is likely secondary to scarring. There is no evidence of consolidation, mass, or pleural effusion. No acute osseous abnormality. IMPRESSION: No evidence of acute cardiopulmonary disease
[2020-02-19 17:53] LABS: #Basophils 0.2 thou/uL (0.0-0.2); #Eosinphils 0.3 thou/uL (0.0-0.7); #Monocytes 0.5 thou/uL (0.11-0.59); #Neutrophils 4.7 thou/uL (1.40-6.50); %Basophils 1.8 % (0.0-1.0); %Eosinophils 3.1 % (0.0-10.0); %Lymphocytes 34.6 % (21.0-51.0); %Monocytes 5.9 % (0.0-10.0); %Neutrophils 54.6 % (42.0-75.0); Hemoglobin 14.2 g/dL (14.0-18.0); Mean Corpuscular Hemoglobin 35.8 pg (27.0-31.0); Mean Corpuscular Volume 99.4 fL (78.0-98.0); Mean Platelet Volume 7.9 fL (7.4-10.4); Platelet Count 258 thou/uL (130-400); RBC Distribution Width 11.2 % (11.5-14.5); Red Blood Cell (RBC) Count 3.97 mill/uL (4.70-6.10); White Blood Cell (WBC) Count 8.6 thou/uL (4.8-10.8)
[2020-02-19 18:15] LABS: ALT (SGPT) 65 U/L (8-55); AST (SGOT) 91 U/L (5-34); Albumin 3.9 g/dL (3.5-5.0); Alkaline Phosphatase 135 U/L (40-110); Anion Gap 17 mmol/L (10-20); BUN (Urea Nitrogen) 5 mg/dL (8.4-25.7); Bilirubin, Total 0.7 mg/dL (0.2-1.2); Calc. Creatinine Clearance 0 mL/min (70-130); Calcium 8.9 mg/dL (7.8-10.44); Carbon Dioxide 22 mmol/L (22-29); Chloride 89 mmol/L (98-107); Estimated GFR-MDRD Greater than 90; Globulin 3.6 g/dL (2.4-3.5); Glucose 97 mg/dL (70-105); Potassium 4.2 mmol/L (3.5-5.1); Protein, Total 7.5 g/dL (6.0-8.3); Sodium 124 mmol/L (136-145)
[2020-02-19] MEDS ORDERED: Azithromycin 500 MG in Sodium Chloride 0.9% 250 ML 250 ML IVPB SCH (20:15)
[2020-02-19 21:05] LABS: Lactic Acid 1.9 mmol/L (0.5-2.2)
[2020-02-19 21:30] LABS: SARS-CoV-2 NAA Rapid Test Not Detected (NotDetected)
--- NOTE | 2020-02-19 21:47 | PDOC.BPN ---
- Brief Progress Note Encounter Date: 02/19/20 [id number] HP
--- NOTE | 2020-02-19 22:33 | HP ---
CHIEF COMPLAINT: Shortness of breath. HISTORY OF PRESENT ILLNESS: Mr. Milian is a 59-year-old male with past medical history of COPD, liver cirrhosis, hypertension, presents to the emergency room with worsening shortness of breath and cough for the last few days. On presentation, the patient was in respiratory distress, wheezing. The patient was given IV Solu-Medrol, breathing treatments with minimal improvement. Initial workup including chest x-ray, no acute finding. The patient is being admitted to hospital for further management. PAST MEDICAL HISTORY: As mentioned above in the history of present illness. PAST SURGICAL HISTORY: Left thumb reattached. PAST PSYCHIATRIC HISTORY: None. SOCIAL HISTORY: The patient drinks every day 2-3 beers a day. He is a former drug user, had used marijuana in the past. Former tobacco user. Smokes cigarettes, quit less than 10 years ago. Lives at home with family. FAMILY HISTORY: Reviewed and noncontributory. HOME MEDICATIONS: Please see home medication reconciliation form for updated medications. ALLERGIES: ALLERGIC TO ASPIRIN AND CEFTRIAXONE. REVIEW OF SYSTEMS: Review of 14 systems negative except what is mentioned in history of present illness. PHYSICAL EXAMINATION: GENERAL: The patient is awake, alert, in moderate respiratory distress. VITAL SIGNS: Blood pressure is 123/80, pulse is 87, respiratory rate is 22, temperature 97.9, and oxygen saturations 97%. HEAD AND NECK: Normocephalic and atraumatic. Neck is supple. No JVD. CHEST: Diffuse bilateral expiratory wheeze. RESPIRATIONS: Labored. HEART: S1, S2. Regular. ABDOMEN: Soft, nontender. Bowel sounds present. NEUROLOGIC: Awake, alert, oriented, moving extremities. PSYCH: Unable to assess. EXTREMITIES: No clubbing, no cyanosis. GENITOURINARY: No suprapubic tenderness. No flank tenderness. LABORATORY DATA: Sodium is 124, AST is 91, ALT is 65. WBC 8.6, hemoglobin 14.2, platelets 258. COVID-19 not detected. Chest x-ray, no acute findings. ASSESSMENT AND PLAN: 1. Acute exacerbation of chronic obstructive pulmonary disease. 2. Hyponatremia? chronic. 3. Liver cirrhosis. 4. Hypertension. PLAN: 1. Admit. 2. Oxygen to keep saturation more than 92%. 3. Bronchodilators scheduled and as needed. 4. IV steroids. 5. IV antibiotics. 6. Monitor electrolytes. 7. Reconcile home medications. 8. DVT prophylaxis as appropriate. 9. Expected length of stay, 2 midnights or more. Job ID: [id number]
[2020-02-20 02:21] VITALS: BMI 27.1
[2020-02-20] MEDS: methylPREDNISolone Sod Succ 40 MG VIAL IVP SCH ×4 (02:50→17:57)
[2020-02-20] MEDS ORDERED: cloNIDine 0.1 MG TAB PO PRN (05:48)
[2020-02-20] MEDS ORDERED: cloNIDine 0.1 MG TAB PO SCH (06:00)
[2020-02-20 06:19] LABS: #Lymphocytes 0.6 thou/uL (1.20-3.40); #Neutrophils 4.4 thou/uL (1.40-6.50); %Basophils 0.5 % (0.0-1.0); %Eosinophils 0.2 % (0.0-10.0); %Lymphocytes 12.4 % (21.0-51.0); %Monocytes 0.5 % (0.0-10.0); %Neutrophils 86.3 % (42.0-75.0); Hemoglobin 14.9 g/dL (14.0-18.0); Mean Corpuscular HGB CONC 32.8 g/dL (32.0-36.0); Mean Corpuscular Hemoglobin 33.1 pg (27.0-31.0); Mean Platelet Volume 8.8 fL (7.4-10.4); Platelet Count 245 thou/uL (130-400); RBC Distribution Width 11.3 % (11.5-14.5); White Blood Cell (WBC) Count 5.1 thou/uL (4.8-10.8)
[2020-02-20 06:41] LABS: Anion Gap 20 mmol/L (10-20); BUN (Urea Nitrogen) 5 mg/dL (8.4-25.7); Calc. Creatinine Clearance 133 mL/min (70-130); Calcium 8.8 mg/dL (7.8-10.44); Carbon Dioxide 16 mmol/L (22-29); Chloride 96 mmol/L (98-107); Estimated GFR-MDRD Greater than 90; Glucose 164 mg/dL (70-105); Potassium 4.3 mmol/L (3.5-5.1); Sodium 128 mmol/L (136-145)
[2020-02-20] MEDS: Enoxaparin Sodium 30 MG/0.3 ML SYRINGE SC SCH (09:01)
--- NOTE | 2020-02-20 13:37 | PDOC.HOSPP ---
- Subjective Encounter Date: 02/20/20 - Objective Vital Signs & Weight: Vital Signs (12 hours) Temp Pulse Resp BP BP Pulse Ox 02/20/20 11:59 97.8 F 84 16 155/93 H 98 02/20/20 08:27 94 18 95 02/20/20 08:00 95 02/20/20 07:25 97.6 F 94 18 157/95 H 95 02/20/20 06:40 167/93 H 02/20/20 05:52 186/106 H 02/20/20 05:30 186/106 H 02/20/20 05:20 98.0 F 105 H 22 H 186/106 H 98 02/20/20 02:43 97 02/20/20 02:37 92 22 H 97 02/20/20 02:09 97.6 F 95 22 H 179/108 H 96 02/20/20 02:05 96 Weight Weight 205 lb 14.4 oz I&O: 02/19/20 02/20/20 02/21/20 06:59 06:59 06:59 Intake Total 550 Output Total 580 Balance -30 Result Diagrams: 02/20/20 05:38 02/20/20 05:38 Hospitalist ROS - Medication Medications: Active Medications Generic Name Dose Route Start Last Admin Trade Name Freq PRN Reason Stop Dose Admin Albuterol/Ipratropium 3 ml 02/20/20 01:00 02/20/20 08:27 Ipratropium/Albuterol Sulfate 3 Ml Neb NEB 3 ml [id number] JIM Administration Albuterol/Ipratropium 3 ml 02/19/20 20:08 02/20/20 05:54 Ipratropium/Albuterol Sulfate 3 Ml Neb NEB 3 ml [id number] PRN Administration SOB &/or Wheezing Enoxaparin Sodium 30 mg 02/20/20 09:00 02/20/20 09:01 Enoxaparin Sodium 30 Mg/0.3 Ml Syringe SC 30 mg 0900 JIM Administration Levofloxacin 750 mg/ Device 150 mls @ 100 mls/hr 02/19/20 21:00 02/20/20 02:14 IVPB Not Given Q24HR JIM Methylprednisolone Sodium Succinate 40 mg 02/19/20 23:59 02/20/20 11:37 Methylprednisolone Sod Succ 40 Mg Vial IVP 40 mg Q6HR JIM Administration - Exam General Appearance: awake alert ENT: normocephalic atraumatic Neck: supple, no JVD Heart: RRR, no murmur, no gallops Respiratory: no tachypnea, wheezes Extremities: no cyanosis, no clubbing Neurological: cranial nerve grossly intact, no new deficit Hosp A/P (1) Acute and chronic respiratory failure Code(s): J96.20 - ACUTE AND CHR RESP FAILURE, UNSP W HYPOXIA OR HYPERCAPNIA S tatus: Acute (2) Acute exacerbation of chronic obstructive pulmonary disease (COPD) Code(s): J44.1 - CHRONIC OBSTRUCTIVE PULMONARY DISEASE W (ACUTE) EXACERBATION Status: Acute (3) CKD (chronic kidney disease) stage 2, GFR 60-89 ml/min Code(s): N18.2 - CHRONIC KIDNEY DISEASE, STAGE 2 (MILD) Status: Chronic (4) Hypertension Code(s): I10 - ESSENTIAL (PRIMARY) HYPERTENSION Status: Chronic Qualifiers: (5) Hyponatremia Code(s): E87.1 - HYPO-OSMOLALITY AND HYPONATREMIA Status: Chronic - Plan The patient remains in acute exacerbation of COPD. Continue scheduled nebulizer treatments, antibiotics, and corticosteroids
[2020-02-20] MEDS: Acetaminophen 325 MG TAB PO PRN (18:01)
--- NOTE | 2020-02-20 19:09 | CON ---
DATE OF CONSULTATION: 02/20/2020 CHIEF COMPLAINT: Shortness of breath. HISTORY OF PRESENT ILLNESS: Mr. Milian is a 59-year-old gentleman with a long smoking history, having quit approximately 3 years ago. He has had ongoing secondhand smoke exposure through his residence. He states that he had pulmonary function studies done about 10 years ago as part of a disability assessment, but he does not recall the test results and they have not been repeated. He has never been on home oxygen. His bronchodilator regimen is limited to Symbicort b.i.d. plus p.r.n. albuterol via inhaler or nebulizer. He has not required home oxygen. He reports increasing shortness of breath over several days duration. This was not associated with cough or purulent sputum or fever. He has not had any chest discomfort. He has had no hemoptysis. He continued with his regular medications without intensification, but presented to the emergency room because of worsening shortness of breath. He was wheezing in the emergency room. He received nebulizer treatments and steroids without improvement. His chest x-ray did not show consolidation and he was admitted with a diagnosis of COPD exacerbation. SOCIAL HISTORY: The patient is a 59-year-old gentleman. 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 He states he quit smoking about 3 months ago, but has secondhand smoke exposure right now. He has drank as much as six of the large one quart beers per day and states that now he drinks two or three of those large beers daily. He has a past drug use history. ALLERGIES: HE REPORTS ALLERGY TO ASPIRIN AND ROCEPHIN. PAST MEDICAL HISTORY: Remarkable for hypertension for which he is on an unknown medication. He has a diagnosis of COPD and is followed by his primary care doctor. He has never been seen in the Pulmonary Clinic. He does not have a history of previous lung cancer. He denies history of myocardial infarction, diabetes, or heart failure. He does admit to alcoholic liver disease, but unfortunately still smokes. REVIEW OF SYSTEMS: Remarkable as above, otherwise negative. PHYSICAL EXAMINATION: VITAL SIGNS: Blood pressure 155/93, saturation 98% on 2 L oxygen, he is afebrile, heart rate is 84, and respiratory rate is 16. GENERAL: He is a 59-year-old gentleman, who appears slightly older than his stated age. He is not in acute respiratory distress and is not using accessory muscles nor does he have increased work of breathing or shortened sentence length. HEENT: Shows no adenopathy or carotid bruit. LUNGS: Demonstrate end-expiratory wheezes, greater on the right than on the left. I do not hear a pleural friction rub and there are no rales. HEART: Regular rate and rhythm with distant S1 and S2. ABDOMEN: Soft and obese. There is no organomegaly. He has no cyanosis, clubbing, or edema. He does have some dystrophic nails. LABORATORY DATA: Chest x-ray shows hyperinflated lung saldaña, which are otherwise clear. There is no consolidation, effusion, mass, or pneumothorax. White count 5100, it was 8600 in the ER; his hemoglobin is 14.9 with hematocrit of 45.4; and platelet count 245,000. Differential is normal. Electrolytes show mild hyponatremia of 128, this is improved compared to admission of 124; potassium 4.3; chloride 96; CO2 of 16; BUN 5; and creatinine 0.8. His ALT, AST, and alkaline phosphatase were all elevated, but less than two times the upper limits of normal. Bilirubin was normal. His COVID serology was negative. IMPRESSION: 1. Chronic obstructive pulmonary disease exacerbation. The patient has a long smoking history with ongoing secondhand smoke exposure. He is on Symbicort, but has not been on a long-acting . He does not require home oxygen and has not had formal pulmonary function studies in as much as 10 years. I do not see evidence of pneumonia and in fact, he does not even have bronchitic complaint today. 2. Alcohol abuse with underlying cirrhosis. 3. Hypertension. RECOMMENDATIONS: I agree with current medical management. I am going to go ahead and add a long-acting . I would recommend that he follow up with his primary care physician and that he has PFTs when medically stable. If desired, he could be seen in the Pulmonary Clinic. The need to avoid even secondhand smoke exposure is emphasized. He reports that he has had his flu vaccine earlier this year and has already had Pneumovax within the past year or two. I have encouraged him to be active and participate in an exercise program. We have talked about his inhalers and the difference between maintenance and rescue agents. I would anticipate he will be discharged on prednisone taper. Thank you for this consultation. Pulmonary Service will continue to follow and offer additional assistance. Job ID: [id number]
[2020-02-21] MEDS: methylPREDNISolone Sod Succ 40 MG VIAL IVP SCH ×2 (04:26→16:02)
[2020-02-21 06:26] LABS: #Lymphocytes 0.6 thou/uL (1.20-3.40); #Monocytes 0.6 thou/uL (0.11-0.59); #Neutrophils 8.7 thou/uL (1.40-6.50); %Eosinophils 0.1 % (0.0-10.0); %Lymphocytes 6.5 % (21.0-51.0); %Neutrophils 87.4 % (42.0-75.0); Hemoglobin 14.5 g/dL (14.0-18.0); Mean Corpuscular HGB CONC 33.1 g/dL (32.0-36.0); Mean Corpuscular Hemoglobin 33.6 pg (27.0-31.0); Mean Platelet Volume 8.4 fL (7.4-10.4); Platelet Count 234 thou/uL (130-400); RBC Distribution Width 11.4 % (11.5-14.5); Red Blood Cell (RBC) Count 4.32 mill/uL (4.70-6.10); White Blood Cell (WBC) Count 9.9 thou/uL (4.8-10.8)
[2020-02-21 06:45] LABS: Anion Gap 16 mmol/L (10-20); BUN (Urea Nitrogen) 10 mg/dL (8.4-25.7); Calc. Creatinine Clearance 138 mL/min (70-130); Calcium 9.1 mg/dL (7.8-10.44); Carbon Dioxide 21 mmol/L (22-29); Chloride 96 mmol/L (98-107); Estimated GFR-MDRD Greater than 90; Glucose 148 mg/dL (70-105); Potassium 3.9 mmol/L (3.5-5.1); Sodium 129 mmol/L (136-145)
[2020-02-21] MEDS: Enoxaparin Sodium 30 MG/0.3 ML SYRINGE SC SCH (08:00)
--- NOTE | 2020-02-21 11:07 | PRG ---
DATE OF SERVICE: 02/21/2020 SUBJECTIVE: The patient says he feels better than when he was admitted a couple of days ago. He has taken his oxygen off. OBJECTIVE: VITAL SIGNS: Temperature 97.8, pulse 78, respirations 18, O2 saturation 99% on room air, blood pressure 170/91. HEENT: Unremarkable. NECK: No JVD. LUNGS: Diffuse mild end-expiratory wheezing. CARDIAC: S1 and S2, regular. ABDOMEN: Soft. EXTREMITIES: No edema. LABORATORY DATA: White blood cell count 9.9, hematocrit 43, and platelet count 234. Sodium 129, potassium 3.9, BUN 10, creatinine 0.7, and glucose 148. ASSESSMENT: Chronic obstructive pulmonary disease with exacerbation. RECOMMENDATIONS: Would probably go home tomorrow. Continue steroids, nebulization treatments, and antibiotics. Job ID: [id number]
[2020-02-21] MEDS: Acetaminophen 325 MG TAB PO PRN (14:51)
--- NOTE | 2020-02-21 15:52 | PDOC.HOSPP ---
- Subjective Encounter Date: 02/21/20 Subjective: The patient is feeling better. - Objective Vital Signs & Weight: Vital Signs (12 hours) Temp Pulse Resp BP BP Pulse Ox 02/21/20 13:11 98 F 109 H 18 158/88 H 99 02/21/20 08:41 78 18 99 02/21/20 08:00 97 02/21/20 07:46 97.8 F 76 22 H 170/91 H 97 02/21/20 04:32 9.6 F L 72 18 156/95 H 99 Weight Weight 205 lb 14.4 oz I&O: 02/20/20 02/21/20 02/22/20 06:59 06:59 06:59 Intake Total 550 741 Output Total 580 350 Balance -30 391 Result Diagrams: 02/21/20 05:47 02/21/20 05:47 Hospitalist ROS - Medication Medications: Active Medications Generic Name Dose Route Start Last Admin Trade Name Freq PRN Reason Stop Dose Admin Acetaminophen 650 mg 02/19/20 20:08 02/21/20 14:51 Acetaminophen 325 Mg Tab PO 650 mg Q4H PRN Administration Headache/Fever/Mild Pain (1-3) Albuterol/Ipratropium 3 ml 02/20/20 01:00 02/21/20 15:43 Ipratropium/Albuterol Sulfate 3 Ml Neb NEB Not Given [id number] JIM Albuterol/Ipratropium 3 ml 02/19/20 20:08 02/20/20 05:54 Ipratropium/Albuterol Sulfate 3 Ml Neb NEB 3 ml [id number] PRN Administration SOB &/or Wheezing Enoxaparin Sodium 30 mg 02/20/20 09:00 02/21/20 08:00 Enoxaparin Sodium 30 Mg/0.3 Ml Syringe SC 30 mg 0900 JIM Administration Methylprednisolone Sodium Succinate 40 mg 02/20/20 17:00 02/21/20 04:26 Methylprednisolone Sod Succ 40 Mg Vial IVP 40 mg 0500,1700 JIM Administration - Exam General Appearance: awake alert ENT: normocephalic atraumatic Neck: supple, no JVD Heart: RRR Respiratory: no tachypnea, wheezes Extremities: no cyanosis, no clubbing Neurological: cranial nerve grossly intact, no focal deficits Hosp A/P (1) Acute and chronic respiratory failure Code(s): J96.20 - ACUTE AND CHR RESP FAILURE, UNSP W HYPOXIA OR HYPERCAPNIA Status: Acute (2) Acute exacerbation of chronic obstructive pulmonary disease (COPD) Code(s): J44.1 - CHRONIC OBSTRUCTIVE PULMONARY DISEASE W (ACUTE) EXACERBATION Status: Acute (3) CKD (chronic kidney disease) stage 2, GFR 60-89 ml/min Code(s): N18.2 - CHRONIC KIDNEY DISEASE, STAGE 2 (MILD) Status: Chronic (4) Hypertension Code(s): I10 - ESSENTIAL (PRIMARY) HYPERTENSION Status: Chronic Qualifiers: (5) Hyponatremia Code(s): E87.1 - HYPO-OSMOLALITY AND HYPONATREMIA Status: Chronic - Plan Respiratory status improving. Continue scheduled nebulizer treatments, antibiotics, corticosteroids. Add Tessalon Perles and Mucinex to the patient's medications.
[2020-02-21] MEDS: Benzonatate 100 MG CAP PO PRN (16:02)
[2020-02-21] MEDS: guaiFENesin ER 600 MG TAB PO SCH (19:48)
[2020-02-22] MEDS: Benzonatate 100 MG CAP PO PRN (00:38)
[2020-02-22] MEDS: methylPREDNISolone Sod Succ 40 MG VIAL IVP SCH (05:03)
[2020-02-22 06:16] LABS: #Lymphocytes 1.1 thou/uL (1.20-3.40); #Monocytes 1.4 thou/uL (0.11-0.59); #Neutrophils 8.4 thou/uL (1.40-6.50); %Lymphocytes 10.3 % (21.0-51.0); %Monocytes 12.5 % (0.0-10.0); %Neutrophils 77.1 % (42.0-75.0); Hemoglobin 14.1 g/dL (14.0-18.0); Mean Corpuscular HGB CONC 31.6 g/dL (32.0-36.0); Mean Corpuscular Hemoglobin 32.3 pg (27.0-31.0); Mean Platelet Volume 8.7 fL (7.4-10.4); Platelet Count 248 thou/uL (130-400); RBC Distribution Width 11.6 % (11.5-14.5); Red Blood Cell (RBC) Count 4.37 mill/uL (4.70-6.10); White Blood Cell (WBC) Count 10.9 thou/uL (4.8-10.8)
[2020-02-22 06:35] LABS: Anion Gap 17 mmol/L (10-20); BUN (Urea Nitrogen) 13 mg/dL (8.4-25.7); Calc. Creatinine Clearance 131 mL/min (70-130); Carbon Dioxide 20 mmol/L (22-29); Chloride 97 mmol/L (98-107); Estimated GFR-MDRD Greater than 90; Glucose 122 mg/dL (70-105); Potassium 4.1 mmol/L (3.5-5.1); Sodium 130 mmol/L (136-145)
[2020-02-22] MEDS: guaiFENesin ER 600 MG TAB PO SCH (07:57)
[2020-02-22] MEDS: Enoxaparin Sodium 30 MG/0.3 ML SYRINGE SC SCH (07:57)
[2020-02-22] MEDS ORDERED: Amlodipine 10 MG TAB PO SCH (08:45)
[2020-02-22 14:39] VITALS: BP 167/67; TEMP 97.6
--- NOTE | 2020-02-23 02:01 | DIS ---
DATE OF ADMISSION: 02/19/2020 DATE OF DISCHARGE: 02/22/2020 DISCHARGE DIAGNOSES: 1. Chronic obstructive pulmonary disease exacerbation. 2. Acute respiratory failure with hypoxia. 3. Chronic kidney disease, stage 2. 4. Hypertension. 5. Hyponatremia. DISCHARGE MEDICATIONS: 1. Levofloxacin 500 mg orally daily for 4 days. 2. Prednisone 40 mg orally daily for 5 days. 3. Albuterol/ipratropium DuoNeb q.6h. as needed for shortness of breath or wheezing. 4. Mucinex 600 mg orally twice daily for 5 days. HISTORY OF PRESENT ILLNESS AND HOSPITAL COURSE: The patient is a 59-year-old male with past medical history of COPD, who presented to the hospital with complaints of shortness of breath, productive cough and wheezing for the past few days. Chest x-ray did not reveal any acute infiltrates. The patient was found to be in a state of respiratory failure with hypoxia due to COPD exacerbation. He was managed with scheduled nebulized treatments, antibiotics and corticosteroids, which led to resolution of his symptoms within 3 days of hospitalization. Job ID: [id number]
[2020-02-23] MEDS ORDERED: predniSONE 20 MG TAB PO SCH (08:00)
[2020-02-23] MEDS ORDERED: Amlodipine 10 MG TAB PO SCH (09:00)
--- NOTE | 2020-02-26 15:26 | EKG ---
Test Reason : Blood Pressure : / mmHG Vent. Rate : 096 BPM Atrial Rate : 096 BPM P-R Int : 160 ms QRS Dur : 084 ms QT Int : 340 ms P-R-T Axes : 093 071 074 degrees QTc Int : 429 ms Normal sinus rhythm Normal ECG Confirmed by JLUIS BILLY, KAITY Corey ([id number]), art editor COURT [place]ILL ([id number]) on 02/26/2020 3:26:04 PM Referred By: Confirmed By:KAITY BAZZI MD
== END 2020-02-22 14:25 | disposition home or self-care (01) | DRG 189 ==
LOC: ERS 17:12 → T4-B 19:52
PROVIDERS: ADMIT Internal Medicine; ATTEND Internal Medicine
DX: J96.20 Acute and chronic respiratory failure, unspecified whether with hypoxia or hypercapnia (principal); J44.1 Chronic obstructive pulmonary disease with (acute) exacerbation; E87.1 Hypo-osmolality and hyponatremia; Z20.828 Contact with and (suspected) exposure to other viral communicable diseases; N18.2 Chronic kidney disease, stage 2 (mild); I12.9 Hypertensive chronic kidney disease with stage 1 through stage 4 chronic kidney disease, or unspecified chronic kidney disease; K70.30 Alcoholic cirrhosis of liver without ascites; F10.10 Alcohol abuse, uncomplicated; Z88.1 Allergy status to other antibiotic agents; Z88.6 Allergy status to analgesic agent; Z87.891 Personal history of nicotine dependence; Z79.51 Long term (current) use of inhaled steroids; Z79.2 Long term (current) use of antibiotics; Z79.891 Long term (current) use of opiate analgesic; Z85.118 Personal history of other malignant neoplasm of bronchus and lung
CPT/HCPCS: 36415; 71045; 80048; 80053; 83605; 83880; 85025; 86140; 87040; 93005; 94640; 94664; 94760; 96365; 96375; J1650; J1956; J2920; J2930; J7620; U0002

== ENCOUNTER 2020-04-24 15:17 | Inpatient (IN) | payer SELFPAY ==
[2020-04-24] MEDS ORDERED: Pantoprazole 40 MG VIAL ONE (15:41)
[2020-04-24 16:26] LABS: #Basophils 0.1 thou/uL (0.0-0.2); #Eosinphils 0.3 thou/uL (0.0-0.7); #Lymphocytes 2.3 thou/uL (1.20-3.40); #Monocytes 0.8 thou/uL (0.11-0.59); #Neutrophils 4.5 thou/uL (1.40-6.50); %Basophils 1.7 % (0.0-1.0); %Lymphocytes 28.9 % (21.0-51.0); %Monocytes 9.9 % (0.0-10.0); %Neutrophils 55.5 % (42.0-75.0); Hemoglobin 14.3 g/dL (14.0-18.0); Mean Corpuscular HGB CONC 34.1 g/dL (32.0-36.0); Mean Corpuscular Volume 99.8 fL (78.0-98.0); Mean Platelet Volume 7.8 fL (7.4-10.4); Platelet Count 228 thou/uL (130-400); RBC Distribution Width 11.4 % (11.5-14.5); Red Blood Cell (RBC) Count 4.21 mill/uL (4.70-6.10); White Blood Cell (WBC) Count 8.1 thou/uL (4.8-10.8)
[2020-04-24] MEDS ORDERED: Vancomycin 1 GM/200 ML BAG ONE (16:30)
[2020-04-24] MEDS ORDERED: Clindamycin/D5W 900 mg/50 ml Premix Bag ONE (16:30)
[2020-04-24 16:31] LABS: INR-International Normal Ratio 1.1; Prothrombin Time 14.2 sec (12.0-14.7)
[2020-04-24 16:32] LABS: PTT 31.9 sec (22.9-36.1)
--- NOTE | 2020-04-24 16:32 | RAD ---
Chest one view HISTORY: Rectal bleeding. COMPARISON: 04/15/2020. FINDINGS: Cardiac silhouette is magnified by projection. Pulmonary vasculature are unremarkable. Mediastinum remains midline. Blunting of the right lateral costophrenic angle and parenchymal scarrin g at the right base are similar in appearance to the prior study. No lobar consolidation or evidence of pneumothorax. IMPRESSION : No acute abnormalities are demonstrated.
[2020-04-24 16:37] LABS: Bilirubin Negative (Negative); Blood, Urine Negative (Negative); Clarity Clear (Clear); Glucose, Urine (Dipstick) Normal (Negative); Ketone, Urine Negative (Negative); Leukocyte Negative Leu/uL (Negative); Nitrite Negative (Negative); Protein, Urine (Dipstick) Negative (Neg-Trace); Specific Gravity, Urine 1.004 (1.002-1.036); Urobilinogen Normal mg/dL (Less than 2); pH, Urine 5.5 (5.0-9.0)
[2020-04-24] MEDS ORDERED: Albuterol 200 PUFF (6.7GM INHALER) ONE (16:51)
[2020-04-24 16:53] LABS: ALT (SGPT) 58 U/L (8-55); AST (SGOT) 104 U/L (5-34); Albumin 3.8 g/dL (3.5-5.0); Alkaline Phosphatase 152 U/L (40-110); Anion Gap 19 mmol/L (10-20); BUN (Urea Nitrogen) 4 mg/dL (8.4-25.7); Bilirubin, Total 0.5 mg/dL (0.2-1.2); CK (CPK) 66 U/L (30-200); Calc. Creatinine Clearance 0 mL/min (70-130); Calcium 8.4 mg/dL (7.8-10.44); Carbon Dioxide 23 mmol/L (22-29); Chloride 92 mmol/L (98-107); Globulin 3.4 g/dL (2.4-3.5); Glucose 98 mg/dL (70-105); Lipase 46 U/L (8-78); Potassium 4.4 mmol/L (3.5-5.1); Protein, Total 7.2 g/dL (6.0-8.3); Sodium 130 mmol/L (136-145)
[2020-04-24 16:57] LABS: Acetaminophen Less than 6.0 mcg/mL (10.0-30.0); Alcohol 301 mg/dL (Less than 10); Salicylate Less than 8.0 mg/dL (15.0-30.0)
[2020-04-24 17:14] LABS: Amphetamine Not Detected (NotDetected); Barbiturates Screen Not Detected (NotDetected); Benzodiazepine Screen Not Detected (NotDetected); Cocaine Metabolite Screen Not Detected (NotDetected); Medtox Control Line Valid? VALID (VALID); Medtox Reader # READER 4; Methadone Not Detected (NotDetected); Methamphetamine Not Detected (NotDetected); Opiate Screen Not Detected (NotDetected); Oxycodone Screen Not Detected (NotDetected); Phencyclidine (PCP) Not Detected (NotDetected); THC/Cannabinoid Screen Detected (NotDetected); Tricyclic Screen Not Detected (NotDetected)
--- NOTE | 2020-04-24 18:24 | PDOC.HHP ---
Hospitalist HPI - History of Present Illness LLE pain and redness History of Present Illness: PCP: Dr. Almaguer The patient is a poor historian, so the majority of the H&P was from reviewing previous records and the ER notes. The patient is a 59-year-old male with a past medical history significant for psoriasis, alcoholic cirrhosis, COPD/asthma and hypertension that presents to the emergency department for the above complaint. The patient reports developing pain and swelling to his left lower extremity since yesterday. He reports that he has a history of psoriasis, however, the left leg has becomes significantly more painful, red and swollen since yesterday. 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 Tetanus is UTD. He denies any known trauma/fall. He denies any recent fever or chills. Denies any open wounds or purulent drainage to the affected extremities. He denies any abdominal pain, nausea, vomiting or diarrhea. He does report bright red blood per rectum this afternoon. He reports that he had a single, painless stool with red blood in the water and in the stool. He denies any history of diverticulitis and has no history of colon cancer in his family. He cannot tell me if/when he had a colonoscopy. He is NOT on any blood thinners. He denies any lightheadedness, however, he does report some shortness of breath. He has a history of COPD and has recently been out of his albuterol inhaler. He reports wheezing. He denies increased cough or sputum production. Denies any hemoptysis and has never had a history of DVT/PE. He denies any chest pain, heart palpitations or lightheadedness. He denies any dysuria or hematuria. He denies that he uses any illicit drugs and reports that he only drinks 2-3 beers a day. ED Course: VITAL SIGNS FriApr 24, 2020 15:31 OMID Olivera Macie BP: 165/98, Pulse: 89, Resp: 18, Temp: 97.9 (Oral), Pain: 8 CALM, O2 sat: 100 on (Room Air), Time: 04/24/2020 15:31. Medications: vancomycin intravenous 1 g IV Piggy Back Acknowledged 16:15 04/24/2020 Proventil HFA 4 puff(s) Oral Given 16:55 04/24/2020 clindamycin in 5 % dextrose 900 mg IV Piggy Back Given 16:34 04/24/2020 Protonix intravenous 40 mg IV Push Given 16:13 04/24/2020 sodium chloride 0.9 % intravenous 1 L IV Fluid Infusion Given 16:10 04/24/2020 Hospitalist ROS - Review of Systems All other systems reviewed; all pertinent +/- noted in HPI/Subj - Medication Medications: amLODIPine TABLET : Strength - 10 mg : ORAL Patient Dose: 1 tab(s) Oral once a day. albuterol sulfate inhalation 2.5 mg/3 mL (0.083 %) : Strength - solution for nebulization : INHALATION Patient Dose: 2.5 mg INHALATION every 4 hours prn. albuterol sulfate inhalation HFA AEROSOL WITH ADAPTER (GRAM) : Strength - 90 mcg : INHALATION Patient Dose: 1 puff(s) INHALATION every 4 hours prn.AGE APPROPRIATE SPACER 2-3 puffs q 4-6 hours as needed for cough, wheezing 6 refills. Vitamin B-12 oral TABLET, EXTENDED RELEASE : Strength - 1,000 mcg : ORAL Patient Dose: UNK once a day. cloNIDine HCl tablet : Strength - 0.2 mg : ORAL Patient Dose: Unknown. Allergies: aspirin (bulk), aspirin (Unconfirmed), ceftriaxone sodium (Unconfirmed), Rocephin Hospitalist History - Past Medical History Source: patient, RN notes reviewed, old records Cardiac: reports: HTN Pulmonary: reports: asthma, COPD Hepatobiliary: reports: Cirrhosis (Alcoholic) Psych: reports: Addictions (Alcohol abuse, marijuana) Rheumatologic: reports: Other Dermatology: reports: Psoriasis - Past Surgical History Past Surgical History: reports: Other (Left thumb re-attached and right middle finger) - Family History Family History: denies: cancer - Social History Smoking Status: Former smoker (Quit 2 to 3 years ago) Alcohol: reports: Heavy (2-3 quarts of beer a day, admitted to ED it was 4-5 quarts a day of beer.) Drugs: reports: marijuana (Denies using, UDS positive) Living Situation: Friends 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 negative: ill appearing General - other findings: Appears uncomfortable Eye: PERRL, anicteric sclera Eye - other findings: Sclerae injected red ENT: normocephalic atraumatic, dry oral mucosa Neck: supple, no lymphadenopathy Heart: RRR, no murmur, no gallops, no rubs, normal peripheral pulses Respiratory: no tachypnea, rhonchi, wheezes Gastrointestinal: soft, non-tender, no bruit, no guarding, no rigidity, distended Extremities: negative: no edema (Mild swelling left greater than right) Extremities - other findings: Bilateral LEs no drainage, no induration or fluctuance, no open lesions Skin: negative: no rashes (Bilateral lower extremity psoriatic lesions) Neurological: no focal deficits Musculoskeletal: normal tone, normal strength Psychiatric: normal affect, A&O x 3 Hospitalist Results - Labs Result Diagrams: 04/24/20 22:26 04/24/20 16:12 Lab results: WBC 8.1 thou/uL (4.8-10.8) 04/24/20 16:12 Hgb 14.3 g/dL (14.0-18.0) 04/24/20 16:12 Hct 42.0 % (42.0-52.0) 04/24/20 16:12 MCV 99.8 fL (78.0-98.0) H 04/24/20 16:12 Plt Count 228 thou/uL (130-400) 04/24/20 16:12 Neutrophils % 55.5 % (42.0-75.0) 04/24/20 16:12 Sodium 130 mmol/L (136-145) L 04/24/20 16:12 Potassium 4.4 mmol/L (3.5-5.1) 04/24/20 16:12 Chloride 92 mmol/L (98-107) L 04/24/20 16:12 Carbon Dioxide 23 mmol/L (22-29) 04/24/20 16:12 BUN 4 mg/dL (8.4-25.7) L 04/24/20 16:12 Creatinine 0.69 mg/dL (0.7-1.3) L 04/24/20 16:12 Glucose 98 mg/dL (70-105) 04/24/20 16:12 Lactic Acid 2.3 mmol/L (0.5-2.2) H 04/24/20 16:12 Calcium 8.4 mg/dL (7.8-10.44) 04/24/20 16:12 Total Bilirubin 0.5 mg/dL (0.2-1.2) 04/24/20 16:12 AST 104 U/L (5-34) H 04/24/20 16:12 ALT 58 U/L (8-55) H 04/24/20 16:12 Alkaline Phosphatase 152 U/L (40-110) H 04/24/20 16:12 Creatine Kinase 66 U/L (30-200) 04/24/20 16:12 Serum Total Protein 7.2 g/dL (6.0-8.3) 04/24/20 16:12 Albumin 3.8 g/dL (3.5-5.0) 04/24/20 16:12 Lipase 46 U/L (8-78) 04/24/20 16:12 Urine Ketones Negative mg/dL (Negative) 04/24/20 16:26 Urine Blood Negative (Negative) 04/24/20 16:26 Urine Nitrite Negative (Negative) 04/24/20 16:26 Ur Leukocyte Esterase Negative Niko/uL (Negative) 04/24/20 16:26 - EKG Interpretation EKG: Normal sinus rhythm pulse 87 no STEMI - Radiology Interpretation Chest x-ray Status: report reviewed by me Additional Comment: IMPRESSION : No acute abnormalities are demonstrated. Hospitalist H&P A/P - Problem (1) Cellulitis of left lower extremity Code(s): L03.116 - CELLULITIS OF LEFT LOWER LIMB Status: Acute (2) Lower GI bleed Code(s): K92.2 - GASTROINTESTINAL HEMORRHAGE, UNSPECIFIED Status: Acute (3) Alcohol intoxication Status: Acute (4) Hyponatremia Code(s): E87.1 - HYPO-OSMOLALITY AND HYPONATREMIA Status: Acute (5) COPD (chronic obstructive pulmonary disease) Status: Chronic (6) Alcoholic cirrhosis Code(s): K70.30 - ALCOHOLIC CIRRHOSIS OF LIVER WITHOUT ASCITES Status: Chronic (7) Psoriasis Code(s): L40.9 - PSORIASIS, UNSPECIFIED Status: Chronic (8) Hypertension Code(s): I10 - ESSENTIAL (PRIMARY) HYPERTENSION Status: Chronic (9) Marijuana use Code(s): F12.90 - CANNABIS USE, UNSPECIFIED, UNCOMPLICATED Status: Acute - Plan Plan: Patient with [facility] psoriasis and alcoholic cirrhosis presents for left lower extremity pain and swelling and BRBPR. Admit to medical floor, inpatient status. #Cellulitis of left lower extremity WBC 8.1, LA 2.3, repeat pending. Received 1 L NS in ER. Does not meet sepsis criteria. Blood CX pending. A: no pain out of proportion or pain outside erythematous borders. Continue clindamycin due to allergy to Rocephin. No concern for MRSA at this time, D/C vancomycin. Get CRP, repeat CBC in a.m. Venous Doppler. Tetanus is UTD per patient. #Lower GI bleed 1 episode painless BRBPR. FOBT + Hemoglobin 14.3, hematocrit 42, Coags WNL Vital signs within normal limits AA: No obvious signs of external hemorrhoids or fissure. N.p.o. Trend H&H every 6 hours Type and screen Check iron studies Consult GI. Orthostatic vital signs PPI. #Alcohol intoxication Presented EtOH 301. A: A&O x4 Start ASE protocol Check mag level, B12 and folate. #Hyponatremia Mild, Na 130. Likely due to heavy beer ingestion. Check osmolality studies and urine sodium. Received 1 L normal saline in ER. Recheck level in a.m. #COPD Chronic. Reports out of his prescription for albuterol at home. Denies increased cough or sputum or shortness of breath. A: Rhonchi and wheezes, SPO2 WNL, NAD CXR no acute cardiopulmonary process. Start Solu-Medrol, DuoNeb scheduled. Start Dulera. #Alcoholic cirrhosis Chronic, appears stable Presented mildly elevated LFTs. Coags WNL. No concern for SBP at this time. #Psoriasis Chronic. Bilateral lower extremities multiple psoriatic lesions. Likely contributory to problem #1. #Hypertension Presented hypertensive. Restart home dose amlodipine and clonidine BID. Patient does not recall exact dosing of clonidine, so we will start lowest effective dose, 0.1mg. Monitor BP. #Marijuana use Denies using marijuana. UDS positive marijuana. No pharmacological DVT prophylaxis. No SCDs for DVT prophylaxis. PPI for GI prophylaxis. CODE STATUS is full code Discussed the case with attending physician, Dr. Grubbs, who agrees with plan of care.
[2020-04-24] MEDS ORDERED: Amlodipine 5 MG TAB PO PRN (19:13)
[2020-04-24 19:47] LABS: Lactic Acid 2.1 mmol/L (0.5-2.2)
[2020-04-24] MEDS ORDERED: methylPREDNISolone Sod Succ 40 MG VIAL IVP SCH (20:00)
[2020-04-24] MEDS ORDERED: Diazepam 5 MG TAB PO PRN (20:08)
[2020-04-24] MEDS ORDERED: Diazepam 5 MG TAB PO SCH (20:15)
[2020-04-24] MEDS ORDERED: Thiamine HCl 200 MG/2 ML VIAL IM SCH (20:15)
[2020-04-24] MEDS ORDERED: methylPREDNISolone Sod Succ 40 MG VIAL ONE (20:53)
[2020-04-24 22:35] LABS: Hemoglobin 13.9 g/dL (14.0-18.0)
[2020-04-24 23:41] VITALS: BMI 28.3
[2020-04-25] MEDS ORDERED: Diazepam 5 MG TAB PO PRN (04:00)
[2020-04-25] MEDS ORDERED: hydrALAZINE 20 MG/ML VIAL SLOW IVP PRN (06:16)
[2020-04-25 06:20] LABS: #Lymphocytes 0.5 thou/uL (1.20-3.40); #Monocytes 0.1 thou/uL (0.11-0.59); #Neutrophils 3.4 thou/uL (1.40-6.50); %Basophils 0.2 % (0.0-1.0); %Eosinophils 0.4 % (0.0-10.0); %Lymphocytes 12.3 % (21.0-51.0); %Monocytes 1.7 % (0.0-10.0); %Neutrophils 85.5 % (42.0-75.0); Hemoglobin 15.4 g/dL (14.0-18.0); Mean Corpuscular HGB CONC 33.5 g/dL (32.0-36.0); Mean Corpuscular Hemoglobin 33.1 pg (27.0-31.0); Mean Platelet Volume 7.8 fL (7.4-10.4); Platelet Count 237 thou/uL (130-400); RBC Distribution Width 11.4 % (11.5-14.5); Red Blood Cell (RBC) Count 4.64 mill/uL (4.70-6.10); Reticulocyte Count 1.7 % (0.5-1.5)
[2020-04-25] MEDS ORDERED: Mometasone 100 MCG/Formoterol 5 MCG 120 PUFF INHALER INH SCH (06:30)
[2020-04-25 06:37] LABS: Iron 130 ug/dL (65-175); Iron Binding Capacity, Total 299 mcg/dL (261-462)
[2020-04-25 06:38] LABS: ALT (SGPT) 58 U/L (8-55); AST (SGOT) 94 U/L (5-34); Albumin 3.9 g/dL (3.5-5.0); Alkaline Phosphatase 158 U/L (40-110); Anion Gap 18 mmol/L (10-20); BUN (Urea Nitrogen) 4 mg/dL (8.4-25.7); Bilirubin, Total 0.7 mg/dL (0.2-1.2); Calc. Creatinine Clearance 141 mL/min (70-130); Calcium 8.8 mg/dL (7.8-10.44); Carbon Dioxide 23 mmol/L (22-29); Chloride 93 mmol/L (98-107); Globulin 4.1 g/dL (2.4-3.5); Glucose 152 mg/dL (70-105); Iron 132 ug/dL (65-175); Iron Binding Capacity, Total 308 mcg/dL (261-462); Potassium 4.8 mmol/L (3.5-5.1); Sodium 129 mmol/L (136-145)
[2020-04-25 07:03] LABS: Ferritin 858.81 ng/mL (22-322)
--- NOTE | 2020-04-25 07:38 | ULT ---
US Venous Doppler Bilat History: Pain and edema and redness Comparison: None. Findings: Real-time grayscale, color and spectral analysis of the bilateral lower extremity venous sy stem was performed. The common femoral, femoral, proximal portions greater saphenous and deep femoral veins as well as the popliteal and posterior tibial veins were interrogated. Normal flow, augmentation and compression. Left ankle superficial and deep soft tissue swelling. Impression: No deep venous thrombosis.
[2020-04-25] MEDS: Clindamycin/D5W 900 MG in Premix Bag 1 BAG IVPB SCH ×3 (08:05→17:41)
[2020-04-25] MEDS: cloNIDine 0.1 MG TAB PO SCH ×3 (08:05→20:58)
[2020-04-25] MEDS: Folic Acid 1 MG TAB PO SCH (08:05)
[2020-04-25] MEDS: Multivitamin W/ Minerals 1 TAB PO SCH (08:05)
[2020-04-25] MEDS: Thiamine 100 MG TAB PO SCH (08:05)
[2020-04-25] MEDS: Pantoprazole 40 MG VIAL IVP SCH ×3 (08:05→20:59)
[2020-04-25] MEDS: Magnesium Oxide 400 MG TAB PO SCH (08:05)
[2020-04-25] MEDS ORDERED: FLU VACC QS2020-21(6MOS UP)/PF 60 MCG/0.5 ML SYRINGE IM ONE (09:00)
[2020-04-25] MEDS ORDERED: Loratadine 10 MG TAB PO PRN (09:28)
[2020-04-25] MEDS ORDERED: GUAIFENESIN SF SOLN 200 MG/10 ML UDCUP PO PRN (09:28)
[2020-04-25] MEDS ORDERED: Senokot S 8.6-50 MG TAB PO PRN (09:28)
[2020-04-25] MEDS ORDERED: Loperamide HCl 2 MG CAP PO PRN (09:28)
[2020-04-25] MEDS ORDERED: Cepastat Lozenges 1 LOZ PO PRN (09:28)
[2020-04-25] MEDS ORDERED: Sodium Chloride 0.65% Nasal 44 ML BOT EA NARE PRN (09:28)
[2020-04-25] MEDS ORDERED: Ondansetron ODT 4 MG TAB SL PRN (09:28)
[2020-04-25] MEDS ORDERED: Calcium Carbonate 500 MG ChewTAB PO PRN (09:28)
[2020-04-25] MEDS ORDERED: HYDROcodone/Acetaminophen 5/325 mg Tablet PO PRN (09:28)
[2020-04-25] MEDS ORDERED: Ondansetron PF 4 MG/2 ML Vial IVP PRN (09:28)
[2020-04-25] MEDS ORDERED: Benzonatate 100 MG CAP PO PRN (09:28)
[2020-04-25] MEDS ORDERED: Bisacodyl 5 MG TAB PO PRN (09:28)
[2020-04-25] MEDS: Ipratropium/Albuterol Sulfate 4 GM AER IH SCH ×2 (10:14→15:13)
[2020-04-25] MEDS ORDERED: diphenhydrAMINE 25 MG CAP PO PRN (13:58)
--- NOTE | 2020-04-25 14:01 | PDOC.HOSPP ---
- Subjective Encounter Date: 04/25/20 Encounter Time: 10:45 Subjective: Patient seen and examined bedside today, no overnight event, no new complaint, he does not have any melanotic stool today, he does not have any hematemesis, - Objective Vital Signs & Weight: Vital Signs (12 hours) Temp Pulse Resp BP BP BP BP 04/25/20 12:41 98.2 F 111 H 20 149/84 H 112/75 04/25/20 08:05 157/92 H 04/25/20 08:00 98.1 F 106 H 20 162/98 H 04/25/20 06:49 112 H 24 H 04/25/20 06:47 112 H 24 H 04/25/20 05:45 97.7 F 97 18 197/107 H 172/102 H 04/25/20 05:17 98.7 F 85 20 167/101 H 04/25/20 03:25 98.2 F 98 22 H 174/109 H 04/25/20 02:36 84 04/25/20 02:23 179/105 H 165/87 H BP Pulse Ox 04/25/20 12:41 99 04/25/20 08:05 04/25/20 08:00 04/25/20 06:49 98 04/25/20 06:47 98 04/25/20 05:45 189/110 H 97 04/25/20 05:17 97 04/25/20 03:25 97 04/25/20 02:36 04/25/20 02:23 173/103 H Weight Weight 215 lb I&O: 04/24/20 04/25/20 04/26/20 06:59 06:59 06:59 Intake Total 100 Output Total 700 Balance -600 Result Diagrams: 04/25/20 10:11 04/25/20 06:10 Hospitalist ROS - Review of Systems Constitutional: denies: fever, chills, sweats, weakness, malaise, other Respiratory: denies: cough, dry, shortness of breath, hemoptysis, SOB with excertion, pleuritic pain, sputum, wheezing, other Cardiovascular: denies: chest pain, palpitations, orthopnea, paroxysmal noc. dys pnea, edema, light headedness, other Gastrointestinal: denies: nausea, vomiting, abdominal pain, diarrhea, constipation, melena, hematochezia, other Genitourinary: denies: dysuria, frequency, incontinence, hematuria, retention, other Musculoskeletal: denies: neck pain, shoulder pain, arm pain, back pain, hand pain, leg pain, foot pain, other - Medication Medications: Active Medications Generic Name Dose Route Start Last Admin Trade Name Freq PRN Reason Stop Dose Admin Albuterol/Ipratropium 0 gm 04/25/20 10:30 04/25/20 10:14 Ipratropium/Albuterol Sulfate 4 Gm Aer IH 1 inh [id number] JIM Administration Amlodipine Besylate 10 mg 04/24/20 19:13 04/25/20 02:36 Amlodipine 5 Mg Tab PO 10 mg DAILYPRN PRN Administration SBP GREATER THAN 160 Clonidine 0.1 mg 04/24/20 21:00 04/25/20 08:05 Clonidine 0.1 Mg Tab PO 0.1 mg BID JIM Administration Folic Acid 1 mg 04/25/20 09:00 04/25/20 08:05 Folic Acid 1 Mg Tab PO 1 mg DAILY JIM Administration Clindamycin Phosphate/Dextrose 50 mls @ 100 mls/hr 04/25/20 01:00 04/25/20 08:05 900 mg/ Device IVPB 50 mls 0100,0900,1700 JIM Administration Iron/Minerals/Multivitamins 1 tab 04/25/20 09:00 04/25/20 08:05 Multivitamin W/ Minerals 1 Tab PO 1 tab DAILY JIM Administration Magnesium Oxide 400 mg 04/25/20 09:00 04/25/20 08:05 Magnesium Oxide 400 Mg Tab PO 400 mg DAILY JIM Administration Mometasone Furoate/Formoterol Fumar 1 puff 04/25/20 06:30 04/25/20 06:47 Mometasone 100 Mcg/Formoterol 5 Mcg 120 Puff Inhaler INH 1 puff BID-RT JIM Administration Pantoprazole Sodium 40 mg 04/24/20 21:00 04/25/20 08:05 Pantoprazole 40 Mg Vial IVP 40 mg BID JIM Administration Thiamine HCl 100 mg 04/25/20 09:00 04/25/20 08:05 Thiamine 100 Mg Tab PO 100 mg DAILY JIM Administration - Exam General Appearance: NAD, awake alert Eye: PERRL, anicteric sclera ENT: normocephalic atraumatic, no oropharyngeal lesions Neck: supple, symmetric, no JVD, no thyromegaly Heart: RRR, no murmur, no gallops, no rubs Respiratory: no wheezes, no rales, no ronchi Gastrointestinal: soft, non-tender, non-distended, normal bowel sounds Extremities - other findings: Patient has psoriatic rash over his lower extremity, cellulitis left lower Skin: normal turgor, no lesions Neurological: no focal deficits Musculoskeletal: normal tone, normal strength, no muscle wasting Psychiatric: normal affect, normal behavior, A&O x 3 Hosp A/P (1) Alcohol intoxication Status: Acute Qualifiers: Complication of substance-induced condition: uncomplicated Qualified Code(s): F10.920 - Alcohol use, unspecified with intoxication, uncomplicated (2) Cellulitis of left lower extremity Code(s): L03.116 - CELLULITIS OF LEFT LOWER LIMB Status: Acute (3) Hyponatremia Code(s): E87.1 - HYPO-OSMOLALITY AND HYPONATREMIA Status: Acute Plan: Due to beer potomania (4) Marijuana use Code(s): F12.90 - CANNABIS USE, UNSPECIFIED, UNCOMPLICATED Status: Chronic (5) Alcoholic cirrhosis Code(s): K70.30 - ALCOHOLIC CIRRHOSIS OF LIVER WITHOUT ASCITES Status: Chronic Qualifiers: Ascites presence: unspecified Qualified Code(s): K70.30 - Alcoholic cirrhosis of liver without ascites (6) COPD (chronic obstructive pulmonary disease) Status: Chronic Qualifiers: Emphysema type: unspecified (7) Hypertension Code(s): I10 - ESSENTIAL (PRIMARY) HYPERTENSION Status: Chronic Qualifiers: Hypertension type: essential hypertension Qualified Code(s): I10 - Essential (primary) hypertension (8) Psoriasis Code(s): L40.9 - PSORIASIS, UNSPECIFIED Status: Chronic (9) Macrocytosis Code(s): D75.89 - OTHER SPECIFIED DISEASES OF BLOOD AND BLOOD-FORMING ORGANS Status: Chronic (10) Tobacco abuse Code(s): Z72.0 - TOBACCO USE Status: Chronic (11) GI bleed Code(s): K92.2 - GASTROINTESTINAL HEMORRHAGE, UNSPECIFIED Status: Suspected Qualifiers: Gastritis type: alcoholic - Plan old records reviewed/req, continue antibiotics Continue clindamycin Continue IV Protonix Continue ASE protocol for alcohol withdrawal Gastroenterology has been consulted for suspected GI bleed We will start diet given stability, does not have any active bleeding, GI bleed possibly related with Ellen-Goodwin or gastritis. We will repeat labs tomorrow Counseling provided to avoid alcohol abuse, advised to avoid smoking and marijuana use
[2020-04-25 14:50] LABS: SARS-CoV-2 PCR by NAA Not Detected (NotDetected)
[2020-04-25 16:29] LABS: Hemoglobin 14.5 g/dL (14.0-18.0)
[2020-04-25] MEDS: Albuterol 200 PUFF (6.7GM INHALER) INH SCH (21:00)
[2020-04-25] MEDS: Mometasone 200 MCG/Formoterol 5 MCG 120 PUFF INHALER INH SCH (22:46)
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
[2020-04-26] MEDS: Clindamycin/D5W 900 MG in Premix Bag 1 BAG IVPB SCH ×2 (00:52→08:30)
[2020-04-26] MEDS: Albuterol 200 PUFF (6.7GM INHALER) INH SCH ×3 (00:54→14:09)
[2020-04-26] MEDS: Mometasone 200 MCG/Formoterol 5 MCG 120 PUFF INHALER INH SCH (06:12)
[2020-04-26 06:43] LABS: #Basophils 0.1 thou/uL (0.0-0.2); #Eosinphils 0.3 thou/uL (0.0-0.7); #Lymphocytes 1.4 thou/uL (1.20-3.40); #Monocytes 0.7 thou/uL (0.11-0.59); #Neutrophils 3.6 thou/uL (1.40-6.50); %Basophils 1.1 % (0.0-1.0); %Eosinophils 4.8 % (0.0-10.0); %Lymphocytes 22.6 % (21.0-51.0); %Monocytes 11.6 % (0.0-10.0); %Neutrophils 59.9 % (42.0-75.0); Hemoglobin 13.8 g/dL (14.0-18.0); Mean Corpuscular HGB CONC 33.4 g/dL (32.0-36.0); Mean Corpuscular Hemoglobin 33.8 pg (27.0-31.0); Mean Platelet Volume 8.1 fL (7.4-10.4); Platelet Count 207 thou/uL (130-400); RBC Distribution Width 11.3 % (11.5-14.5); Red Blood Cell (RBC) Count 4.07 mill/uL (4.70-6.10)
[2020-04-26 07:01] LABS: ALT (SGPT) 42 U/L (8-55); AST (SGOT) 65 U/L (5-34); Albumin 3.5 g/dL (3.5-5.0); Alkaline Phosphatase 128 U/L (40-110); Anion Gap 15 mmol/L (10-20); BUN (Urea Nitrogen) 9 mg/dL (8.4-25.7); CRP (Inflammatory) 0.57 mg/dL (= or < 0.5); Calc. Creatinine Clearance 132 mL/min (70-130); Calcium 8.3 mg/dL (7.8-10.44); Carbon Dioxide 26 mmol/L (22-29); Chloride 92 mmol/L (98-107); Globulin 3.4 g/dL (2.4-3.5); Glucose 106 mg/dL (70-105); Potassium 3.6 mmol/L (3.5-5.1); Protein, Total 6.9 g/dL (6.0-8.3); Sodium 129 mmol/L (136-145)
[2020-04-26] MEDS: Folic Acid 1 MG TAB PO SCH (08:30)
[2020-04-26] MEDS: Multivitamin W/ Minerals 1 TAB PO SCH (08:30)
[2020-04-26] MEDS: cloNIDine 0.1 MG TAB PO SCH (08:30)
[2020-04-26] MEDS: Magnesium Oxide 400 MG TAB PO SCH (08:30)
[2020-04-26] MEDS: Thiamine 100 MG TAB PO SCH (08:30)
[2020-04-26] MEDS: Pantoprazole 40 MG VIAL IVP SCH (08:31)
[2020-04-26] MEDS ORDERED: Clindamycin/D5W 900 mg/50 ml Premix Bag ONE (08:34)
[2020-04-26] MEDS ORDERED: Clindamycin 150 MG CAP PO SCH (10:00)
[2020-04-26 12:05] VITALS: BP 108/71; TEMP 98
--- NOTE | 2020-04-26 12:10 | PDOC.DS.DS ---
Provider - Provider Date of Admission: 04/24/20 18:15 Date of Discharge: 04/26/20 Admitting Provider: Clark Grubbs MD Consultations: Gastroentrology (Dr. Head) Primary Care Physician: Cande Lundberg NP Course - Hospital Course Hospital Course: Discharge diagnosis: 1. Cellulitis 2. Hyponatremia 3. GI bleed, likely hemorrhoidal 4. Abnormal LFTs 5. Alcohol abuse 6. Urine drug screen positive for cannabinoids 7. COVID-19 PCR test negative Hospital course: Patient is a pleasant 59-year-old gentleman who was admitted to the hospital on April 24, 2020 for left lower extremity cellulitis. He was treated with intravenous antibiotics, subsequently stepdown to oral clindamycin after showing improvement. His hydrochlorothiazide was discontinued because he was hyponatremic. He has been advised to check his blood pressure and heart rate 3 times a day and show the readings to his primary care provider. He was seen by gastroenterology service for bright red blood in stool. It was felt that his hematochezia was more consistent with hemorrhoidal type bleeding. He has been advised to follow-up in GI clinic to schedule colonoscopy and EGD for further evaluation of the mild bleeding. He has also been advised to stop alcohol use. Many thanks for allowing me to participate in your patient's care. Please feel free to contact me with any questions or concerns. Discharge destination: Home Total amount of time spent coordinating this discharge: 32 minutes Resuscitation Status: 04/25/20 09:28 Resuscitation Status Routine Resuscitation Status: FULL: Full Resuscitation - Labs Lab Results: 04/26/20 06:12 04/26/20 06:12 Abnormal Lab Results - Last 48 hrs 04/24/20 16:12: Sodium 130 L, Chloride 92 L, BUN 4 L, Creatinine 0.69 L, AST 104 H, ALT 58 H, Alkaline Phosphatase 152 H, Albumin/Globulin Ratio 1.1 L 04/24/20 16:12: RBC 4.21 L, MCV 99.8 H, MCH 34.0 H, RDW 11.4 L, Basophils % 1.7 H, Monocytes # 0.8 H 04/24/20 16:12: Lactic Acid 2.3 H 04/24/20 16:12: Salicylates Less than 8.0 L, Acetaminophen Less than 6.0 L, Plasma Alcohol 301 H 04/24/20 16:26: U Cannabinoids Screen Detected H 04/24/20 19:02: C-Reactive Protein 0.59 H 04/24/20 19:02: Serum Osmolality 317 H 04/24/20 19:18: Urine Osmolality 192 L 04/24/20 22:26: Hgb 13.9 L, Hct 40.3 L 04/25/20 06:10: Sodium 129 L, Chloride 93 L, BUN 4 L, AST 94 H, ALT 58 H, Alkaline Phosphatase 158 H, Globulin 4.1 H, Albumin/Globulin Ratio 1.0 L 04/25/20 06:10: WBC 4.0 L, RBC 4.64 L, MCV 99.0 H, MCH 33.1 H, RDW 11.4 L, Neutrophils % 85.5 H, Lymphocytes % 12.3 L, Lymphocytes # 0.5 L, Monocytes # 0.1 L 04/25/20 06:10: Ferritin 858.81 H, Vitamin B12 1312 H 04/25/20 06:10: Retic Count 1.7 H, Immature Retic Fraction 0.082 L 04/26/20 06:12: Sodium 129 L, Chloride 92 L, AST 65 H, Alkaline Phosphatase 128 H, C-Reactive Protein 0.57 H, Albumin/Globulin Ratio 1.0 L 04/26/20 06:12: RBC 4.07 L, Hgb 13.8 L, Hct 41.2 L, MCV 101.0 H, MCH 33.8 H, RDW 11.3 L, Monocytes % 11.6 H, Basophils % 1.1 H, Monocytes # 0.7 H Microbiology - Entire Visit 04/24/20 16:12 Venous blood - Right Arm Blood Culture - Preliminary Specimen has been received and culture in progress. No Growth to date. 04/24/20 16:12 Venous blood - Left Arm Blood Culture - Preliminary Specimen has been received and culture in progress. No Growth to date. 04/24/20 Unknown Stool - Pending Stool Occult Blood (JOI) - Final - Physical Exam Vitals: Vital Signs (12 hours) Temp Pulse Resp BP BP BP BP 04/26/20 12:00 98 F 77 17 108/71 04/26/20 08:00 142/89 H 04/26/20 07:01 97.7 F 76 18 142/89 H 04/26/20 06:09 97.8 F 71 20 135/79 119/80 133/77 04/26/20 01:28 97.9 F 79 18 113/75 106/72 111/70 Pulse Ox 04/26/20 12:00 96 04/26/20 08:00 99 04/26/20 07:01 99 04/26/20 06:09 99 04/26/20 01:28 98 Weight Weight 215 lb Physical Exam: The patient was seen and examined on the day of discharge. Patient denies chest pain or shortness of breath. Vital signs are stable. S1 and S2 are heard. Lungs are clear to auscultation bilaterally. Plan - Discharge Medications Prescriptions: Clindamycin HCl 300 mg PO Q6HR #40 capsule Folic Acid [Folvite] 1 mg PO DAILY #30 tab Thiamine 100 mg PO DAILY #30 tab Home Medications: Medication Instructions Recorded Confirmed Type Albuterol Sulfate [Proair HFA] 2 puff INH Q4HR PRN #1 inh 08/18/19 04/24/20 Rx Budesonide-Formoterol [Symbicort 1 puff INH BID 10/20/19 04/24/20 History 160-4.5] Ipratropium/Albuterol Sulfate 3 ml NEB QID PRN #60 neb 02/22/20 04/24/20 Rx [DuoNeb] [id number] ER [Mucinex] 600 mg PO Q12HR #10 tab 02/22/20 04/24/20 Rx Amlodipine [Norvasc] 10 mg PO DAILY #0 04/26/20 04/24/20 Rx Clindamycin HCl 300 mg PO Q6HR #40 capsule 04/26/20 Rx Folic Acid [Folvite] 1 mg PO DAILY #30 tab 04/26/20 Rx Thiamine 100 mg PO DAILY #30 tab 04/26/20 Rx Allergies: aspirin Allergy (Verified 04/24/20 22:40) Hives Per pt ceftriaxone sodium [From Rocephin] Allergy (Verified 04/24/20 22:40) Hives Per pt - Discharge Instructions Discharge Instructions:: Check your blood pressure and heart rate 3 times a day and shows readings to your primary care provider. Activity:: Activity as Tolerated Nourishment:: Heart Healthy Diet - Follow up Plan Referrals: Cande Lundberg NP [Primary Care Provider] - 3 Days Disposition: HOME Quality - Care Measures CORE MEASURES:: N/A
--- NOTE | 2020-05-13 22:50 | EKG ---
Test Reason : Blood Pressure : / mmHG Vent. Rate : 087 BPM Atrial Rate : 087 BPM P-R Int : 182 ms QRS Dur : 084 ms QT Int : 356 ms P-R-T Axes : 074 064 071 degrees QTc Int : 428 ms Normal sinus rhythm Normal ECG Confirmed by KEILA BILLY, MEENU ([id number]), supervising film or videotape editor COURT HILL ([id number]) on 05/13/2020 10:49:45 PM Referred By: Confirmed By:MEENU PEDRAZA MD
== END 2020-04-26 14:44 | disposition home or self-care (01) | DRG 394 ==
LOC: ERS 15:17 → ERHOLD 18:15 → T4-B 23:27
PROVIDERS: ADMIT Internal Medicine; ATTEND Internal Medicine
DX: K64.9 Unspecified hemorrhoids (principal); L03.116 Cellulitis of left lower limb; E87.1 Hypo-osmolality and hyponatremia; K92.2 Gastrointestinal hemorrhage, unspecified; J44.9 Chronic obstructive pulmonary disease, unspecified; I10 Essential (primary) hypertension; L40.9 Psoriasis, unspecified; K70.30 Alcoholic cirrhosis of liver without ascites; F10.10 Alcohol abuse, uncomplicated; F12.10 Cannabis abuse, uncomplicated; F10.129 Alcohol abuse with intoxication, unspecified; D75.89 Other specified diseases of blood and blood-forming organs; K70.10 Alcoholic hepatitis without ascites; Z20.822 Contact with and (suspected) exposure to COVID-19; R94.5 Abnormal results of liver function studies; Z88.6 Allergy status to analgesic agent; Z87.891 Personal history of nicotine dependence; Z98.890 Other specified postprocedural states; Z88.1 Allergy status to other antibiotic agents; Z79.899 Other long term (current) drug therapy; Z79.2 Long term (current) use of antibiotics; Z79.51 Long term (current) use of inhaled steroids
CPT/HCPCS: 36415; 71045; 80053; 80306; 80307; 81003; 82274; 82550; 82607; 82728; 82746; 83540; 83550; 83605; 83690; 83735; 83930; 83935; 84300; 85025; 85046; 85610; 85730; 86140; 86850; 86900; 86901; 87040; 87635; 93005; 93970; 94640; 96365; 96367; 96375; C9113; J2920; J3370; J3411; J3475; J3490; J7620; Q0163; U0003; U0005

== ENCOUNTER 2020-04-29 18:27 | Inpatient (IN) | payer SELFPAY ==
[2020-04-29] MEDS ORDERED: diphenhydrAMINE 50 MG/ML VIAL ONE (18:49)
[2020-04-29] MEDS ORDERED: methylPREDNISolone Sod Succ/PF 125 MG/2 ML VIAL ONE (18:49)
[2020-04-29] MEDS ORDERED: diphenhydrAMINE 50 MG CAP ONE (18:49)
[2020-04-29] MEDS ORDERED: Albuterol 200 PUFF (6.7GM INHALER) ONE (19:18)
[2020-04-29 19:23] LABS: #Basophils 0.1 thou/uL (0.0-0.2); #Lymphocytes 2.4 thou/uL (1.20-3.40); #Monocytes 1.1 thou/uL (0.11-0.59); #Neutrophils 6.3 thou/uL (1.40-6.50); %Basophils 1.3 % (0.0-1.0); %Eosinophils 9.4 % (0.0-10.0); %Lymphocytes 21.5 % (21.0-51.0); %Monocytes 9.8 % (0.0-10.0); Hemoglobin 14.6 g/dL (14.0-18.0); Mean Corpuscular HGB CONC 34.8 g/dL (32.0-36.0); Mean Corpuscular Hemoglobin 35.3 pg (27.0-31.0); Mean Platelet Volume 7.7 fL (7.4-10.4); Platelet Count 219 thou/uL (130-400); RBC Distribution Width 11.5 % (11.5-14.5); Red Blood Cell (RBC) Count 4.13 mill/uL (4.70-6.10); White Blood Cell (WBC) Count 10.9 thou/uL (4.8-10.8)
--- NOTE | 2020-04-29 19:32 | RAD ---
Chest one view HISTORY: Dyspnea. COMPARISON: 04/24/2020. FINDINGS: Cardiac silhouette is midline. Right cardiac margin not well defined. Similar in appearance to prior exams dating back to 2019. Pleural scarring at the right lateral costophrenic angle. Left lung well-inflated. No lobar consolidation or evidence of pneumothorax. IMPRESSION : No acute abnormalities are demonstrated.
[2020-04-29] MEDS ORDERED: Ondansetron PF 4 MG/2 ML Vial ONE (19:45)
[2020-04-29] MEDS ORDERED: Morphine 4 MG/ML VIAL ONE ×2 (19:45→20:45)
[2020-04-29 19:55] LABS: ALT (SGPT) 77 U/L (8-55); AST (SGOT) 117 U/L (5-34); Albumin 3.7 g/dL (3.5-5.0); Alkaline Phosphatase 133 U/L (40-110); Anion Gap 19 mmol/L (10-20); BUN (Urea Nitrogen) Less than 4 mg/dL (8.4-25.7); Bilirubin, Total 0.6 mg/dL (0.2-1.2); CK (CPK) 141 U/L (30-200); Calc. Creatinine Clearance 0 mL/min (70-130); Calcium 8.6 mg/dL (7.8-10.44); Carbon Dioxide 17 mmol/L (22-29); Chloride 95 mmol/L (98-107); Globulin 3.4 g/dL (2.4-3.5); Glucose 87 mg/dL (70-105); Lipase 39 U/L (8-78); Magnesium 1.8 mg/dL (1.6-2.6); Potassium 4.3 mmol/L (3.5-5.1); Protein, Total 7.1 g/dL (6.0-8.3); Sodium 127 mmol/L (136-145)
[2020-04-29 20:03] LABS: Bilirubin Negative (Negative); Blood, Urine Negative (Negative); Clarity Clear (Clear); Glucose, Urine (Dipstick) Normal (Negative); Ketone, Urine Negative (Negative); Leukocyte Negative Leu/uL (Negative); Nitrite Negative (Negative); Protein, Urine (Dipstick) Negative (Neg-Trace); Specific Gravity, Urine 1.002 (1.002-1.036); Urobilinogen Normal mg/dL (Less than 2); pH, Urine 5.5 (5.0-9.0)
[2020-04-29 20:43] LABS: SARS-CoV-2 NAA Rapid Test Not Detected (NotDetected)
[2020-04-29] MEDS ORDERED: Senokot S 8.6-50 MG TAB PO PRN (20:45)
[2020-04-29] MEDS ORDERED: Acetaminophen 325 MG TAB PO PRN (20:45)
[2020-04-29] MEDS ORDERED: Vancomycin 1 GM/200 ML BAG ONE (20:45)
[2020-04-29] MEDS ORDERED: Morphine 2 MG/ML VIAL SLOW IVP PRN (20:59)
[2020-04-29] MEDS ORDERED: cloNIDine 0.1 MG TAB PO PRN (22:15)
[2020-04-29 22:16] VITALS: BMI 28.0
[2020-04-29] MEDS: hydrOXYzine 25 MG TAB PO PRN (22:28)
[2020-04-29] MEDS ORDERED: Oxazepam 10 MG CAP PO PRN (23:09)
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
[2020-04-30] MEDS: Morphine 4 MG/ML VIAL SLOW IVP PRN ×2 (03:10→20:07)
[2020-04-30 06:33] LABS: #Basophils 0.1 thou/uL (0.0-0.2); #Lymphocytes 0.7 thou/uL (1.20-3.40); #Neutrophils 5.6 thou/uL (1.40-6.50); %Basophils 1.4 % (0.0-1.0); %Eosinophils 0.3 % (0.0-10.0); %Lymphocytes 10.2 % (21.0-51.0); %Monocytes 0.6 % (0.0-10.0); %Neutrophils 87.5 % (42.0-75.0); Hemoglobin 14.2 g/dL (14.0-18.0); Mean Corpuscular HGB CONC 33.3 g/dL (32.0-36.0); Mean Corpuscular Hemoglobin 33.6 pg (27.0-31.0); Mean Platelet Volume 7.9 fL (7.4-10.4); Platelet Count 245 thou/uL (130-400); RBC Distribution Width 11.6 % (11.5-14.5); Red Blood Cell (RBC) Count 4.22 mill/uL (4.70-6.10); White Blood Cell (WBC) Count 6.4 thou/uL (4.8-10.8)
[2020-04-30 06:51] LABS: Phosphorus 3.2 mg/dL (2.3-4.7)
[2020-04-30 06:54] LABS: ALT (SGPT) 76 U/L (8-55); AST (SGOT) 94 U/L (5-34); Albumin 3.7 g/dL (3.5-5.0); Alkaline Phosphatase 136 U/L (40-110); Anion Gap 16 mmol/L (10-20); BUN (Urea Nitrogen) 5 mg/dL (8.4-25.7); Bilirubin, Total 0.4 mg/dL (0.2-1.2); Calc. Creatinine Clearance 132 mL/min (70-130); Calcium 8.9 mg/dL (7.8-10.44); Carbon Dioxide 20 mmol/L (22-29); Chloride 97 mmol/L (98-107); Globulin 3.6 g/dL (2.4-3.5); Glucose 202 mg/dL (70-105); Magnesium 1.8 mg/dL (1.6-2.6); Potassium 4.3 mmol/L (3.5-5.1); Protein, Total 7.3 g/dL (6.0-8.3); Sodium 129 mmol/L (136-145)
[2020-04-30] MEDS: Mometasone 200 MCG/Formoterol 5 MCG 120 PUFF INHALER INH SCH ×3 (07:02→19:16)
[2020-04-30] MEDS: hydrOXYzine 25 MG TAB PO PRN (08:47)
[2020-04-30] MEDS: Amlodipine 10 MG TAB PO SCH (08:48)
[2020-04-30] MEDS: Enoxaparin Sodium 40 MG/0.4 ML SYRINGE SC SCH (08:48)
[2020-04-30] MEDS: Folic Acid 1 MG TAB PO SCH (08:48)
[2020-04-30] MEDS: Thiamine 100 MG TAB PO SCH (08:48)
[2020-04-30] MEDS ORDERED: Non-Formulary Item 1 EACH (Albuterol Sulfate [Proair Hfa] 8.5 GM Hfa.Aer.Ad) INH PRN (15:33)
[2020-04-30] MEDS ORDERED: methylPREDNISolone Sod Succ 40 MG VIAL IVP SCH ×2 (15:45→16:15)
[2020-04-30] MEDS ORDERED: diphenhydrAMINE 50 MG/ML VIAL IVP SCH (15:45)
--- NOTE | 2020-04-30 15:51 | PDOC.HOSPP ---
- Subjective Encounter Date: 04/30/20 Encounter Time: 15:45 Subjective: pt up in bed complains of itching all over - Objective Vital Signs & Weight: Vital Signs (12 hours) Temp Pulse Resp BP BP Pulse Ox 04/30/20 12:09 102 H 18 95 04/30/20 11:39 98.0 F 96 18 167/91 H 99 04/30/20 07:15 98.7 F 101 H 16 160/90 H 99 04/30/20 07:02 100 18 96 04/30/20 06:56 101 H 18 96 04/30/20 04:00 98.1 F 101 H 20 132/95 H 162/95 H 96 Weight Weight 212 lb 1.6 oz I&O: 04/29/20 04/30/20 05/01/20 06:59 06:59 06:59 Intake Total 1462 Output Total 1575 Balance -113 Result Diagrams: 04/30/20 05:58 04/30/20 05:58 Hospitalist ROS - Review of Systems Gastrointestinal: denies: nausea, vomiting, abdominal pain, diarrhea, constipation, melena, hematochezia, other Skin: reports: rash - Medication Medications: Active Medications Generic Name Dose Route Start Last Admin Trade Name Freq PRN Reason Stop Dose Admin Albuterol/Ipratropium 3 ml 04/30/20 01:00 04/30/20 12:09 Ipratropium/Albuterol Sulfate 3 Ml Neb NEB 3 ml [id number] JIM Administration Amlodipine Besylate 10 mg 04/30/20 09:00 04/30/20 08:48 Amlodipine 10 Mg Tab PO 10 mg DAILY JIM Administration Enoxaparin Sodium 40 mg 04/30/20 09:00 04/30/20 08:48 Enoxaparin Sodium 40 Mg/0.4 Ml Syringe SC 40 mg 0900 JIM Administration Folic Acid 1 mg 04/30/20 09:00 04/30/20 08:48 Folic Acid 1 Mg Tab PO 1 mg DAILY JIM Administration Hydroxyzine HCl 50 mg 04/29/20 22:10 04/30/20 08:47 Hydroxyzine 25 Mg Tab PO 05/04/20 22:11 50 mg ONE PRN Administration Pruritis Mineral Oil/White Petrolatum 0 gm 04/30/20 09:00 04/30/20 11:04 Aquaphor 99 Gm Jar TOP 1 applic DAILY JIM Administration Mometasone Furoate/Formoterol Fumar 2 puff 04/30/20 06:30 04/30/20 07:02 Mometasone 200 Mcg/Formoterol 5 Mcg 120 Puff Inhaler INH 2 puff BID-RT JIM Administration Morphine Sulfate 4 mg 04/29/20 20:59 04/30/20 03:10 Morphine 4 Mg/Ml Vial SLOW IVP 4 mg Q4H PRN Administration Moderate to Severe Pain (6-10) Pantoprazole Sodium 40 mg 04/30/20 09:00 04/30/20 08:47 Pantoprazole 40 Mg Tab PO 40 mg DAILY JIM Administration Thiamine HCl 100 mg 04/30/20 09:00 04/30/20 08:48 Thiamine 100 Mg Tab PO 100 mg DAILY JIM Administration - Exam Heart: negative: RRR, no murmur, no gallops, no rubs, normal peripheral pulses, irregular, diminshed peripheral pulses, murmur present, II/IV, III/IV Respiratory: negative: CTAB, no wheezes, no rales, no ronchi, normal chest expansion, no tachypnea, normal percussion, rales, rhonchi, tachypneic, wheezes Gastrointestinal: negative: soft, non-tender, non-distended, normal bowel sounds, no palpable masses, no hepatomegaly, no splenomegaly, no bruit, no guarding, no rigidity, tender to palpation, distended, diminished bowl sounds, voluntary guarding Extremities: 1+ LE edema Skin - other findings: rash all over Hosp A/P (1) Dermatitis Code(s): L30.9 - DERMATITIS, UNSPECIFIED Status: Acute (2) COPD exacerbation Code(s): J44.1 - CHRONIC OBSTRUCTIVE PULMONARY DISEASE W (ACUTE) EXACERBATION Status: Acute (3) Chronic alcohol use Code(s): Z72.89 - OTHER PROBLEMS RELATED TO LIFESTYLE Status: Chronic (4) Hypertension Code(s): I10 - ESSENTIAL (PRIMARY) HYPERTENSION Status: Chronic Qualifiers: Hypertension type: essential hypertension Qualified Code(s): I10 - Essential (primary) hypertension (5) Hyponatremia Code(s): E87.1 - HYPO-OSMOLALITY AND HYPONATREMIA Status: Chronic - Plan will stop abx. will start pt on steroids and Benadryl. pt also has some wheezing all over his lungs. His wbc were mildly elevated with no neutrophils.
[2020-04-30] MEDS ORDERED: Bacteriostatic Water 30 ML VIAL FS PRN (16:15)
[2020-04-30] MEDS: guaiFENesin ER 600 MG TAB PO SCH (20:08)
[2020-04-30] MEDS: cloNIDine 0.2 MG TAB PO SCH (20:08)
[2020-04-30] MEDS: diphenhydrAMINE 12.5 MG/5 ML UDCUP PO PRN (20:16)
[2020-04-30] MEDS ORDERED: FLU VACC QS2020-21(6MOS UP)/PF 60 MCG/0.5 ML SYRINGE IM ONE (21:00)
[2020-05-01] MEDS: diphenhydrAMINE 12.5 MG/5 ML UDCUP PO PRN (04:14)
[2020-05-01] MEDS: Mometasone 200 MCG/Formoterol 5 MCG 120 PUFF INHALER INH SCH ×2 (06:55)
--- NOTE | 2020-05-01 07:20 | PDOC.HOSPP ---
- Subjective Encounter Date: 05/01/20 Encounter Time: 09:30 Subjective: Patient reports resolution of swelling in his lower extremities and resolution of pain. He reports that his lower extremities are always red and baseline. He does report the itching has improved with steroids and that the rash on his palms is improved with steroids and stopping the clindamycin. Patient reports that he has wheezing but that this is chronic for him he feels like his respiratory status is at baseline and he is ready to go home. - Objective Vital Signs & Weight: Vital Signs (12 hours) Temp Pulse Resp BP BP Pulse Ox 05/01/20 06:54 73 16 99 05/01/20 04:03 97.7 F 76 16 132/83 100 05/01/20 04:00 132/83 05/01/20 00:56 85 18 99 05/01/20 00:00 127/78 04/30/20 23:32 97.9 F 78 16 127/78 95 04/30/20 20:08 153/90 H 04/30/20 20:00 153/90 H 04/30/20 19:16 97.9 F 83 16 153/90 H 98 04/30/20 19:15 99 20 95 Weight Weight 212 lb 1.6 oz I&O: 04/30/20 05/01/20 05/02/20 06:59 06:59 06:59 Intake Total 1462 3543 Output Total 1575 Balance -113 3543 Result Diagrams: 04/30/20 05:58 04/30/20 05:58 Hospitalist ROS - Review of Systems Constitutional: denies: fever, chills Respiratory: reports: wheezing. denies: cough, shortness of breath Cardiovascular: denies: chest pain, palpitations Gastrointestinal: denies: nausea, vomiting, abdominal pain Skin: reports: rash - Medication Medications: Active Medications Generic Name Dose Route Start Last Admin Trade Name Freq PRN Reason Stop Dose Admin Albuterol/Ipratropium 3 ml 04/30/20 01:00 05/01/20 06:54 Ipratropium/Albuterol Sulfate 3 Ml Neb NEB 3 ml [id number] JIM Administration Amlodipine Besylate 10 mg 04/30/20 09:00 04/30/20 08:48 Amlodipine 10 Mg Tab PO 10 mg DAILY JIM Administration Clonidine 0.2 mg 04/30/20 21:00 04/30/20 20:08 Clonidine 0.2 Mg Tab PO 0.2 mg BID JIM Administration Diphenhydramine HCl 50 mg 04/30/20 15:54 05/01/20 04:14 Diphenhydramine 12.5 Mg/5 Ml Udcup PO 50 mg Q8H PRN Administration Rash/Topical Irritation Enoxaparin Sodium 40 mg 04/30/20 09:00 04/30/20 08:48 Enoxaparin Sodium 40 Mg/0.4 Ml Syringe SC 40 mg 0900 JIM Administration Folic Acid 1 mg 04/30/20 09:00 04/30/20 08:48 Folic Acid 1 Mg Tab PO 1 mg DAILY JIM Administration Guaifenesin 600 mg 04/30/20 21:00 04/30/20 20:08 Guaifenesin Er 600 Mg Tab PO 600 mg Q12HR JIM Administration Hydroxyzine HCl 50 mg 04/29/20 22:10 04/30/20 08:47 Hydroxyzine 25 Mg Tab PO 05/04/20 22:11 50 mg ONE PRN Administration Pruritis Mineral Oil/White Petrolatum 0 gm 04/30/20 09:00 04/30/20 11:04 Aquaphor 99 Gm Jar TOP 1 applic DAILY JIM Administration Mometasone Furoate/Formoterol Fumar 2 puff 04/30/20 06:30 05/01/20 06:55 Mometasone 200 Mcg/Formoterol 5 Mcg 120 Puff Inhaler INH 2 puff BID-RT JIM Administration Mometasone Furoate/Formoterol Fumar 1 puff 04/30/20 18:30 05/01/20 06:55 Mometasone 200 Mcg/Formoterol 5 Mcg 120 Puff Inhaler INH Not Given BID-RT JIM Morphine Sulfate 4 mg 04/29/20 20:59 04/30/20 20:07 Morphine 4 Mg/Ml Vial SLOW IVP 4 mg Q4H PRN Administration Moderate to Severe Pain (6-10) Pantoprazole Sodium 40 mg 04/30/20 09:00 04/30/20 08:47 Pantoprazole 40 Mg Tab PO 40 mg DAILY JIM Administration Thiamine HCl 100 mg 04/30/20 09:00 04/30/20 08:48 Thiamine 100 Mg Tab PO 100 mg DAILY JIM Administration - Exam General Appearance: NAD, awake alert ENT: moist mucosa Heart: RRR, no murmur, no gallops, no rubs Respiratory: no rales, no ronchi, no tachypnea, wheezes (Diffuse) Respiratory - other findings: No increased work of breathing Gastrointestinal: soft, non-tender, non-distended, normal bowel sounds Skin - other findings: Scales and erythema bilateral shins at baseline Psychiatric: normal affect, normal behavior, A&O x 3 Hosp A/P (1) Dermatitis Code(s): L30.9 - DERMATITIS, UNSPECIFIED Status: Acute (2) Acute exacerbation of chronic obstructive pulmonary disease (COPD) Code(s): J44.1 - CHRONIC OBSTRUCTIVE PULMONARY DISEASE W (ACUTE) EXACERBATION Status: Acute (3) Transaminitis Code(s): R74.0 - NONSPEC ELEV OF LEVELS OF TRANSAMNS & LACTIC * DO NOT USE * Status: Acute (4) Alcoholic cirrhosis Code(s): K70.30 - ALCOHOLIC CIRRHOSIS OF LIVER WITHOUT ASCITES Status: Chronic Qualifiers: Ascites presence: unspecified Qualified Code(s): K70.30 - Alcoholic cirrhosis of liver without ascites (5) Chronic alcohol use Code(s): Z72.89 - OTHER PROBLEMS RELATED TO LIFESTYLE Status: Chronic (6) Hypertension Code(s): I10 - ESSENTIAL (PRIMARY) HYPERTENSION Status: Chronic Qualifiers: (7) Hyponatremia Code(s): E87.1 - HYPO-OSMOLALITY AND HYPONATREMIA Status: Chronic (8) Psoriasis Code(s): L40.9 - PSORIASIS, UNSPECIFIED Status: Chronic (9) Tobacco abuse Code(s): Z72.0 - TOBACCO USE Status: Chronic - Plan Patient without evidence of infection. Appears like flair of his psoriasis. Switched to oral steroids. COPD improved. Stable on room air. Will DC home with another 4 days of steroids along with a topical steroid and Aquaphor cream.
[2020-05-01] MEDS ORDERED: predniSONE 20 MG TAB PO SCH (08:00)
[2020-05-01] MEDS: guaiFENesin ER 600 MG TAB PO SCH (08:33)
[2020-05-01] MEDS: Folic Acid 1 MG TAB PO SCH (08:33)
[2020-05-01] MEDS: Thiamine 100 MG TAB PO SCH (08:33)
[2020-05-01] MEDS: cloNIDine 0.2 MG TAB PO SCH (08:33)
[2020-05-01] MEDS: Amlodipine 10 MG TAB PO SCH (08:34)
[2020-05-01] MEDS: Enoxaparin Sodium 40 MG/0.4 ML SYRINGE SC SCH (08:34)
[2020-05-01] MEDS ORDERED: Thiamine 100 MG TAB PO SCH (09:00)
[2020-05-01] MEDS ORDERED: Folic Acid 1 MG TAB PO SCH (09:00)
[2020-05-01] MEDS ORDERED: Spironolactone 25 MG TAB PO SCH (09:00)
[2020-05-01 12:04] VITALS: BP 112/73; TEMP 97.8
--- NOTE | 2020-05-01 12:20 | PDOC.DS.DS ---
Provider - Provider Date of Admission: 04/29/20 20:42 Date of Discharge: 05/01/20 Admitting Provider: Andrew Raymundo Consultations: None Primary Care Physician: Cande Lundberg NP Course - Hospital Course Hospital Course: This is a 59-year-old man with a history of psoriasis and chronic bilateral red rashes to his shins. Patient had been started on clindamycin by his primary care doctor. He states that this actually seemed to make his rash worse and more swelling of his lower extremities and then he started to have some itching of his palms and a diffuse rash over his body. Patient was seen in the emergency room and admitted for worsening cellulitis. However on exam he was found to have worsening inflammatory lesions associated with his psoriasis. He also seems to be having a reaction to the clindamycin. All of his antibiotics were stopped and patient was started on steroids. His symptoms markedly improved and so now he is being discharged home. Patient has chronic COPD with chronic wheezing however he had no worsening of symptoms during his hospitalization and required no oxygen. - Labs Lab Results: 04/30/20 05:58 04/30/20 05:58 Abnormal Lab Results - Last 48 hrs 04/29/20 19:08: Sodium 127 L, Chloride 95 L, Carbon Dioxide 17 L, BUN Less than 4 L, Creatinine 0.69 L, AST 117 H, ALT 77 H, Alkaline Phosphatase 133 H, Albumin/Globulin Ratio 1.1 L 04/29/20 19:12: WBC 10.9 H, RBC 4.13 L, Hct 41.9 L, MCV 101.0 H, MCH 35.3 H, Basophils % 1.3 H, Monocytes # 1.1 H, Eosinophils # 1.0 H 04/29/20 19:19: Lactic Acid 2.6 H 04/30/20 05:58: Sodium 129 L, Chloride 97 L, Carbon Dioxide 20 L, BUN 5 L, AST 94 H, ALT 76 H, Alkaline Phosphatase 136 H, Globulin 3.6 H, Albumin/Globulin Ratio 1.0 L 04/30/20 05:58: RBC 4.22 L, MCV 101.0 H, MCH 33.6 H, Neutrophils % 87.5 H, Lymphocytes % 10.2 L, Basophils % 1.4 H, Lymphocytes # 0.7 L, Monocytes # 0.0 L Microbiology - Entire Visit 04/29/20 19:40 Urine voided Urine Culture - Preliminary NO GROWTH AT 12 HOURS 04/29/20 19:19 Venous blood - Left Hand Blood Culture - Preliminary Specimen has been received and culture in progress. No Growth to date. 04/29/20 19:04 Venous blood - Right Hand Blood Culture - Preliminary Specimen has been received and culture in progress. No Growth to date. - Physical Exam Vitals: Vital Signs (12 hours) Temp Pulse Resp BP BP Pulse Ox 05/01/20 11:58 97.8 F 81 18 112/73 100 05/01/20 08:34 77 137/80 05/01/20 08:33 137/80 05/01/20 07:38 97.7 F 77 18 137/80 99 05/01/20 06:54 73 16 99 05/01/20 04:03 97.7 F 76 16 132/83 100 05/01/20 04:00 132/83 05/01/20 00:56 85 18 99 Weight Weight 212 lb 1.6 oz Physical Exam: The patient was seen and examined on the day of discharge. Problem - Discharge Plan Assessment: Patient with flare of his psoriasis from clindamycin reaction improved with steroids and stopping antibiotics. Plan of Treatment: We will give 4 more days of steroids along with steroid cream and Aquaphor twice a day and have patient follow-up with his primary care physician. - Problem (1) Dermatitis Code(s): L30.9 - DERMATITIS, UNSPECIFIED Status: Acute (2) Acute exacerbation of chronic obstructive pulmonary disease (COPD) Code(s): J44.1 - CHRONIC OBSTRUCTIVE PULMONARY DISEASE W (ACUTE) EXACERBATION Status: Acute (3) Transaminitis Code(s): R74.0 - NONSPEC ELEV OF LEVELS OF TRANSAMNS & LACTIC * DO NOT USE * Status: Acute (4) Alcoholic cirrhosis Code(s): K70.30 - ALCOHOLIC CIRRHOSIS OF LIVER WITHOUT ASCITES Status: Chronic Qualifiers: Ascites presence: unspecified Qualified Code(s): K70.30 - Alcoholic cirrhosis of liver without ascites (5) Chronic alcohol use Code(s): Z72.89 - OTHER PROBLEMS RELATED TO LIFESTYLE Status: Chronic (6) Hypertension Code(s): I10 - ESSENTIAL (PRIMARY) HYPERTENSION Status: Chronic Qualifiers: (7) Hyponatremia Code(s): E87.1 - HYPO-OSMOLALITY AND HYPONATREMIA Status: Chronic (8) Psoriasis Code(s): L40.9 - PSORIASIS, UNSPECIFIED Status: Chronic (9) Tobacco abuse Code(s): Z72.0 - TOBACCO USE Status: Chronic Plan - Discharge Medications Prescriptions: Aquaphor 99 GM 1 gm TOP BID #1 jar predniSONE 40 mg PO QAM-WM 4 Days #8 tab Triamcinolone Acetonide [Triamcinolone Acetonide 0.025% Cream] 1 applic TOP BID #1 tube Home Medications: Medication Instructions Recorded Confirmed Type Albuterol Sulfate [Proair HFA] 2 puff INH Q4HR PRN #1 inh 08/18/19 04/29/20 Rx Budesonide-Formoterol [Symbicort 1 puff INH BID 10/20/19 04/29/20 History 160-4.5] Ipratropium/Albuterol Sulfate 3 ml NEB QID PRN #60 neb 02/22/20 04/29/20 Rx [DuoNeb] guaiFENesin ER [Mucinex] 600 mg PO Q12HR #10 tab 02/22/20 04/29/20 Rx Folic Acid [Folvite] 1 mg PO DAILY #30 tab 04/26/20 04/29/20 Rx Thiamine 100 mg PO DAILY #30 tab 04/26/20 04/29/20 Rx Spironolactone [Aldactone] 25 mg PO DAILY 04/29/20 04/29/20 History cloNIDine [Catapres] 0.2 mg PO BID 04/29/20 04/29/20 History Aquaphor 99 GM 1 gm TOP BID #1 jar 05/01/20 Rx Triamcinolone Acetonide 1 applic TOP BID #1 tube 05/01/20 Rx [Triamcinolone Acetonide 0.025% Cream] predniSONE 40 mg PO QAM-WM 4 Days #8 tab 05/01/20 Rx Allergies: aspirin Allergy (Verified 04/29/20 22:17) Hives Per pt ceftriaxone sodium [From Rocephin] Allergy (Verified 04/29/20 22:17) Hives Per pt clindamycin Allergy (Verified 04/30/20 16:24) Hives - Discharge Instructions Activity:: Activity as Tolerated Nourishment:: Heart Healthy Diet Therapies:: Not Applicable Equipment/Supplies:: Nebulizer Treatments (continue home nebs) IV Therapy:: Not Applicable - Follow up Plan Referrals: Cande Lundberg NP [Primary Care Provider] - 7 Days Disposition: HOME Quality - Care Measures CORE MEASURES:: N/A
== END 2020-05-01 13:03 | disposition home or self-care (01) | DRG 596 ==
LOC: ERS 18:27 → SURG A 20:42
PROVIDERS: ADMIT Internal Medicine; ATTEND Emergency Medicine
DX: L40.9 Psoriasis, unspecified (principal); E87.1 Hypo-osmolality and hyponatremia; J44.1 Chronic obstructive pulmonary disease with (acute) exacerbation; Z20.822 Contact with and (suspected) exposure to COVID-19; Z23 Encounter for immunization; R74.01 Elevation of levels of liver transaminase levels; K70.30 Alcoholic cirrhosis of liver without ascites; I10 Essential (primary) hypertension; I87.8 Other specified disorders of veins; F10.10 Alcohol abuse, uncomplicated; Z87.891 Personal history of nicotine dependence; Z79.899 Other long term (current) drug therapy
CPT/HCPCS: 0240U; 36415; 71045; 80053; 81003; 82550; 83605; 83690; 83735; 83880; 84100; 84484; 85025; 87040; 87086; 90471; 90662; 94640; 94664; 94760; 96365; 96367; 96375; 96376; G0008; J1200; J1650; J1956; J2270; J2405; J2920; J2930; J3370; J7512; J7620; Q0163

== ENCOUNTER 2020-05-16 08:46 | Emergency (ER) | payer SELFPAY ==
--- NOTE | 2020-05-16 09:19 | RAD ---
XR Chest Pa Lat STANDARD History: Lower extremity edema Comparison: Chest radiograph April 29, 2020 Findings: Chronic parenchymal and pleural scarring along the right lower hemithorax is similar. Mild associated volume loss. Left lung is relatively clear. Old left-sided rib fractures. Cardiac silhouette and mediastinal contours are similar. Impression: Similar examination of the chest. No acute intrathoracic abnormality.
[2020-05-16 09:36] LABS: #Basophils 0.1 thou/uL (0.0-0.2); #Eosinphils 0.3 thou/uL (0.0-0.7); #Lymphocytes 1.6 thou/uL (1.20-3.40); #Monocytes 0.6 thou/uL (0.11-0.59); %Basophils 1.3 % (0.0-1.0); %Eosinophils 3.8 % (0.0-10.0); %Lymphocytes 18.6 % (21.0-51.0); %Monocytes 6.5 % (0.0-10.0); %Neutrophils 69.9 % (42.0-75.0); Hemoglobin 14.4 g/dL (14.0-18.0); Mean Corpuscular HGB CONC 32.9 g/dL (32.0-36.0); Mean Corpuscular Hemoglobin 32.7 pg (27.0-31.0); Mean Corpuscular Volume 99.4 fL (78.0-98.0); Mean Platelet Volume 7.6 fL (7.4-10.4); Platelet Count 291 thou/uL (130-400); RBC Distribution Width 11.5 % (11.5-14.5); White Blood Cell (WBC) Count 8.5 thou/uL (4.8-10.8)
[2020-05-16 09:59] LABS: ALT (SGPT) 45 U/L (8-55); AST (SGOT) 60 U/L (5-34); Alkaline Phosphatase 159 U/L (40-110); Anion Gap 18 mmol/L (10-20); BUN (Urea Nitrogen) Less than 4 mg/dL (8.4-25.7); Bilirubin, Total 0.7 mg/dL (0.2-1.2); Calc. Creatinine Clearance 0 mL/min (70-130); Carbon Dioxide 20 mmol/L (22-29); Chloride 98 mmol/L (98-107); Globulin 3.5 g/dL (2.4-3.5); Glucose 112 mg/dL (70-105); Potassium 4.1 mmol/L (3.5-5.1); Protein, Total 7.5 g/dL (6.0-8.3); Sodium 132 mmol/L (136-145)
[2020-05-16] MEDS ORDERED: Ondansetron PF 4 MG/2 ML Vial ONE (11:41)
[2020-05-16] MEDS ORDERED: Morphine 4 MG/ML VIAL ONE (11:41)
[2020-05-16] MEDS ORDERED: predniSONE 20 MG TAB ONE (11:41)
[2020-05-16] MEDS ORDERED: Albuterol 200 PUFF (6.7GM INHALER) ONE (11:53)
[2020-05-16 12:17] LABS: CRP (Inflammatory) 1.36 mg/dL (= or < 0.5)
[2020-05-16] MEDS ORDERED: Albuterol Sulfate 2.5 mg/3 ml Neb ONE (12:25)
[2020-05-16] MEDS ORDERED: Vancomycin 1.5 GRAM/300 ML BAG 1.5 GM in Premix Bag 1 BAG IVPB SCH (13:00)
== END 2020-05-16 15:25 | disposition home or self-care (01) ==
LOC: ERS 08:46
DX: S20.212A Contusion of left front wall of thorax, initial encounter (principal); R60.0 Localized edema; J44.9 Chronic obstructive pulmonary disease, unspecified; I10 Essential (primary) hypertension; J45.909 Unspecified asthma, uncomplicated; Z87.891 Personal history of nicotine dependence; Z86.718 Personal history of other venous thrombosis and embolism; Z79.51 Long term (current) use of inhaled steroids; Z79.899 Other long term (current) drug therapy; W19.XXXA Unspecified fall, initial encounter
CPT/HCPCS: 36415; 71046; 80053; 82550; 83880; 84484; 85025; 86140; 93005; 96365; 96366; 96375; J2270; J2405; J3370; J7512; J7611

== ENCOUNTER 2020-05-26 18:48 | Emergency (ER) | payer SELFPAY ==
[2020-05-26 19:29] LABS: #Basophils 0.1 thou/uL (0.0-0.2); #Eosinphils 0.8 thou/uL (0.0-0.7); #Lymphocytes 2.7 thou/uL (1.20-3.40); #Monocytes 1.2 thou/uL (0.11-0.59); #Neutrophils 7.1 thou/uL (1.40-6.50); %Basophils 0.9 % (0.0-1.0); %Eosinophils 7.1 % (0.0-10.0); %Lymphocytes 22.6 % (21.0-51.0); %Monocytes 9.7 % (0.0-10.0); %Neutrophils 59.7 % (42.0-75.0); Hemoglobin 14.2 g/dL (14.0-18.0); Mean Corpuscular HGB CONC 33.6 g/dL (32.0-36.0); Mean Corpuscular Hemoglobin 33.7 pg (27.0-31.0); Mean Platelet Volume 7.4 fL (7.4-10.4); Platelet Count 266 thou/uL (130-400); RBC Distribution Width 11.6 % (11.5-14.5); Red Blood Cell (RBC) Count 4.23 mill/uL (4.70-6.10); White Blood Cell (WBC) Count 11.9 thou/uL (4.8-10.8)
[2020-05-26 19:49] LABS: ALT (SGPT) 58 U/L (8-55); AST (SGOT) 82 U/L (5-34); Albumin 3.6 g/dL (3.5-5.0); Alkaline Phosphatase 174 U/L (40-110); Anion Gap 17 mmol/L (10-20); BUN (Urea Nitrogen) 6 mg/dL (8.4-25.7); Bilirubin, Total 0.6 mg/dL (0.2-1.2); CK (CPK) 49 U/L (30-200); Calc. Creatinine Clearance 0 mL/min (70-130); Calcium 8.2 mg/dL (7.8-10.44); Carbon Dioxide 20 mmol/L (22-29); Chloride 97 mmol/L (98-107); Globulin 3.2 g/dL (2.4-3.5); Glucose 97 mg/dL (70-105); Potassium 4.5 mmol/L (3.5-5.1); Protein, Total 6.8 g/dL (6.0-8.3); Sodium 129 mmol/L (136-145)
--- NOTE | 2020-05-26 21:07 | RAD ---
CHEST ONE VIEW: 05/26/20 COMPARISON: 04/29/20 and 05/16/20 exams. HISTORY: Leg swelling. Heart size is within normal limits. Chronic appearing changes in the right lung base are again seen. No focal infiltrative process noted. IMPRESSION: Chronic lung change. No acute findings. POS: BONNIE
[2020-05-26] MEDS ORDERED: Furosemide 40 MG/4 ML VIAL ONE (22:05)
== END 2020-05-26 22:16 | disposition home or self-care (01) ==
LOC: ERS 18:48
DX: L40.9 Psoriasis, unspecified (principal); R60.0 Localized edema; J44.9 Chronic obstructive pulmonary disease, unspecified; I10 Essential (primary) hypertension; Z87.891 Personal history of nicotine dependence; Z79.51 Long term (current) use of inhaled steroids; Z79.899 Other long term (current) drug therapy
CPT/HCPCS: 36415; 71045; 80053; 82550; 83880; 84484; 85025; 93005; 96374; J1940

== ENCOUNTER 2020-06-11 19:12 | Inpatient (IN) | payer SELFPAY ==
[2020-06-11] MEDS ORDERED: Piperacillin/Tazobactam 3.375 GM VIAL ONE (20:21)
[2020-06-11] MEDS ORDERED: Vancomycin 1 GM/200 ML BAG ONE (20:21)
[2020-06-11 20:25] LABS: #Basophils 0.1 thou/uL (0.0-0.2); #Eosinphils 1.2 thou/uL (0.0-0.7); #Lymphocytes 2.7 thou/uL (1.20-3.40); #Neutrophils 6.3 thou/uL (1.40-6.50); %Basophils 1.2 % (0.0-1.0); %Eosinophils 10.9 % (0.0-10.0); %Lymphocytes 23.6 % (21.0-51.0); %Monocytes 8.6 % (0.0-10.0); %Neutrophils 55.7 % (42.0-75.0); Hemoglobin 13.9 g/dL (14.0-18.0); Mean Corpuscular HGB CONC 33.4 g/dL (32.0-36.0); Mean Corpuscular Hemoglobin 33.9 pg (27.0-31.0); Mean Platelet Volume 7.3 fL (7.4-10.4); Platelet Count 338 thou/uL (130-400); RBC Distribution Width 11.8 % (11.5-14.5); White Blood Cell (WBC) Count 11.3 thou/uL (4.8-10.8)
[2020-06-11 20:48] LABS: ALT (SGPT) 53 U/L (8-55); AST (SGOT) 123 U/L (5-34); Albumin 3.6 g/dL (3.5-5.0); Alkaline Phosphatase 230 U/L (40-110); Anion Gap 18 mmol/L (10-20); BUN (Urea Nitrogen) Less than 4 mg/dL (8.4-25.7); Bilirubin, Total 0.4 mg/dL (0.2-1.2); Calc. Creatinine Clearance 0 mL/min (70-130); Calcium 8.4 mg/dL (7.8-10.44); Carbon Dioxide 21 mmol/L (22-29); Chloride 99 mmol/L (98-107); Globulin 3.7 g/dL (2.4-3.5); Glucose 97 mg/dL (70-105); Potassium 4.3 mmol/L (3.5-5.1); Protein, Total 7.3 g/dL (6.0-8.3); Sodium 134 mmol/L (136-145)
[2020-06-11] MEDS ORDERED: methylPREDNISolone Sod Succ/PF 125 MG/2 ML VIAL ONE (22:10)
[2020-06-11 23:28] LABS: Lactic Acid 2.5 mmol/L (0.5-2.2)
[2020-06-11] MEDS ORDERED: Morphine 4 MG/ML VIAL ONE (23:43)
[2020-06-12 01:47] LABS: Bilirubin Negative (Negative); Blood, Urine Negative (Negative); Clarity Clear (Clear); Glucose, Urine (Dipstick) Normal (Negative); Ketone, Urine Negative (Negative); Leukocyte Negative Leu/uL (Negative); Nitrite Negative (Negative); Protein, Urine (Dipstick) Negative (Neg-Trace); Specific Gravity, Urine 1.005 (1.002-1.036); Urobilinogen Normal mg/dL (Less than 2); pH, Urine 5.5 (5.0-9.0)
[2020-06-12] MEDS ORDERED: Ondansetron PF 4 MG/2 ML Vial IVP PRN (04:42)
[2020-06-12] MEDS ORDERED: Piperacillin/Tazobactam 3.375 GM VIAL ONE (06:15)
[2020-06-12] MEDS: Piperacillin/Tazobactam 3.375 GM in Sodium Chloride 0.9% 100 ML IVPB SCH ×3 (06:23→21:00)
[2020-06-12] MEDS ORDERED: VANCOMYCIN 2 GRAM/400 ML BAG 2 GM in Premix Bag 1 BAG IVPB SCH (08:00)
[2020-06-12] MEDS ORDERED: methylPREDNISolone Sod Succ/PF 125 MG/2 ML VIAL IVP SCH (08:15)
[2020-06-12] MEDS ORDERED: Furosemide 40 MG/4 ML VIAL SLOW IVP SCH (08:15)
[2020-06-12] MEDS ORDERED: Lorazepam 2 MG/ML VIAL SLOW IVP PRN (08:16)
[2020-06-12] MEDS: methylPREDNISolone Sod Succ 40 MG VIAL IVP SCH ×3 (08:26→23:18)
[2020-06-12 08:45] LABS: SARS-CoV-2 PCR by NAA Not Detected (NotDetected)
[2020-06-12] MEDS ORDERED: Lorazepam 2 MG/ML VIAL ONE (09:21)
[2020-06-12] MEDS ORDERED: Furosemide 20 MG/2 ML VIAL ONE (09:22)
[2020-06-12] MEDS ORDERED: Thiamine 100 MG TAB ONE (09:22)
[2020-06-12] MEDS ORDERED: methylPREDNISolone Sod Succ/PF 125 MG/2 ML VIAL ONE (09:22)
[2020-06-12] MEDS ORDERED: Metoprolol Tartrate 5 MG/5 ML VIAL ONE (09:22)
[2020-06-12] MEDS ORDERED: Enoxaparin Sodium 40 MG/0.4 ML SYRINGE ONE (09:22)
[2020-06-12] MEDS: Thiamine 100 MG TAB PO SCH (09:59)
[2020-06-12] MEDS: Sodium Chloride 0.9% 1,000 ML IV SCH ×2 (10:01→20:53)
[2020-06-12 10:58] VITALS: BMI 33.6
[2020-06-12] MEDS: Multivitamin W/ Minerals 1 TAB PO SCH (11:21)
[2020-06-12] MEDS: Nystatin 500,000 UNITS/5 ML UDCUP SSW SCH ×2 (11:22→20:53)
[2020-06-12] MEDS: Enoxaparin Sodium 40 MG/0.4 ML SYRINGE SC SCH (11:37)
[2020-06-12] MEDS: Metoprolol Tartrate 5 MG/5 ML VIAL IVP PRN ×2 (13:29→20:56)
[2020-06-12] MEDS: diphenhydrAMINE 12.5 MG/5 ML UDCUP PO PRN (20:53)
[2020-06-13 04:38] LABS: #Lymphocytes 0.5 thou/uL (1.20-3.40); #Monocytes 0.3 thou/uL (0.11-0.59); #Neutrophils 7.1 thou/uL (1.40-6.50); %Eosinophils 0.4 % (0.0-10.0); %Lymphocytes 6.3 % (21.0-51.0); %Monocytes 3.3 % (0.0-10.0); %Neutrophils 90.1 % (42.0-75.0); Hemoglobin 12.4 g/dL (14.0-18.0); Mean Corpuscular HGB CONC 33.4 g/dL (32.0-36.0); Mean Corpuscular Hemoglobin 33.9 pg (27.0-31.0); Mean Platelet Volume 7.6 fL (7.4-10.4); Platelet Count 231 thou/uL (130-400); RBC Distribution Width 11.8 % (11.5-14.5); Red Blood Cell (RBC) Count 3.66 mill/uL (4.70-6.10); White Blood Cell (WBC) Count 7.8 thou/uL (4.8-10.8)
[2020-06-13 05:03] LABS: ALT (SGPT) 38 U/L (8-55); AST (SGOT) 54 U/L (5-34); Albumin 3.1 g/dL (3.5-5.0); Alkaline Phosphatase 178 U/L (40-110); Anion Gap 16 mmol/L (10-20); BUN (Urea Nitrogen) 5 mg/dL (8.4-25.7); Bilirubin, Direct 0.4 mg/dL (0.1-0.3); Bilirubin, Total 0.6 mg/dL (0.2-1.2); Calc. Creatinine Clearance 144 mL/min (70-130); Calcium 7.7 mg/dL (7.8-10.44); Carbon Dioxide 26 mmol/L (22-29); Chloride 94 mmol/L (98-107); Glucose 219 mg/dL (70-105); Protein, Total 6.4 g/dL (6.0-8.3); Sodium 133 mmol/L (136-145)
[2020-06-13 05:07] LABS: Potassium 2.9 mmol/L (3.5-5.1)
[2020-06-13] MEDS ORDERED: Potassium Chloride 20 MEQ TAB PO SCH (05:15)
[2020-06-13] MEDS: diphenhydrAMINE 12.5 MG/5 ML UDCUP PO PRN ×2 (06:04→14:26)
[2020-06-13] MEDS: Piperacillin/Tazobactam 3.375 GM in Sodium Chloride 0.9% 100 ML IVPB SCH (06:04)
[2020-06-13] MEDS: Nystatin 500,000 UNITS/5 ML UDCUP SSW SCH ×2 (08:57→20:42)
[2020-06-13] MEDS: methylPREDNISolone Sod Succ 40 MG VIAL IVP SCH ×3 (08:58→23:35)
[2020-06-13] MEDS: Multivitamin W/ Minerals 1 TAB PO SCH (08:58)
[2020-06-13] MEDS: Thiamine 100 MG TAB PO SCH (08:58)
[2020-06-13] MEDS: Enoxaparin Sodium 40 MG/0.4 ML SYRINGE SC SCH (08:58)
[2020-06-13] MEDS ORDERED: FLU VACC QS2020-21(6MOS UP)/PF 60 MCG/0.5 ML SYRINGE IM ONE (09:00)
[2020-06-13 14:21] LABS: Lactic Acid 2.8 mmol/L (0.5-2.2)
[2020-06-13] MEDS: Acetaminophen 325 MG TAB PO PRN (14:26)
[2020-06-13] MEDS: Sodium Chloride 0.9% 1,000 ML IV SCH ×2 (14:26→23:42)
[2020-06-13] MEDS: Mometasone 200 MCG/Formoterol 5 MCG 120 PUFF INHALER INH SCH (19:30)
[2020-06-13] MEDS: cloNIDine 0.2 MG TAB PO SCH (20:41)
[2020-06-14 06:11] LABS: #Lymphocytes 0.5 thou/uL (1.20-3.40); #Monocytes 0.3 thou/uL (0.11-0.59); #Neutrophils 7.3 thou/uL (1.40-6.50); %Eosinophils 0.1 % (0.0-10.0); %Lymphocytes 6.3 % (21.0-51.0); %Monocytes 3.5 % (0.0-10.0); %Neutrophils 90.2 % (42.0-75.0); Mean Corpuscular HGB CONC 32.7 g/dL (32.0-36.0); Mean Corpuscular Hemoglobin 33.3 pg (27.0-31.0); Mean Platelet Volume 7.5 fL (7.4-10.4); Platelet Count 234 thou/uL (130-400); RBC Distribution Width 11.8 % (11.5-14.5); White Blood Cell (WBC) Count 8.1 thou/uL (4.8-10.8)
[2020-06-14 06:30] LABS: Lactic Acid 2.1 mmol/L (0.5-2.2)
[2020-06-14 06:35] LABS: Anion Gap 11 mmol/L (10-20); BUN (Urea Nitrogen) 10 mg/dL (8.4-25.7); Calc. Creatinine Clearance 156 mL/min (70-130); Calcium 8.1 mg/dL (7.8-10.44); Carbon Dioxide 29 mmol/L (22-29); Chloride 97 mmol/L (98-107); Glucose 134 mg/dL (70-105); Potassium 3.4 mmol/L (3.5-5.1); Sodium 134 mmol/L (136-145)
[2020-06-14] MEDS: Mometasone 200 MCG/Formoterol 5 MCG 120 PUFF INHALER INH SCH ×2 (07:45→19:04)
[2020-06-14] MEDS: cloNIDine 0.2 MG TAB PO SCH ×2 (08:44→20:16)
[2020-06-14] MEDS: Thiamine 100 MG TAB PO SCH (08:48)
[2020-06-14] MEDS: Multivitamin W/ Minerals 1 TAB PO SCH (08:48)
[2020-06-14] MEDS: methylPREDNISolone Sod Succ 40 MG VIAL IVP SCH ×2 (08:48→16:20)
[2020-06-14] MEDS: Spironolactone 25 MG TAB PO SCH (08:48)
[2020-06-14] MEDS: Nystatin 500,000 UNITS/5 ML UDCUP SSW SCH ×2 (08:49→20:15)
[2020-06-14] MEDS: Enoxaparin Sodium 40 MG/0.4 ML SYRINGE SC SCH (08:49)
[2020-06-14] MEDS ORDERED: diphenhydrAMINE 25 MG CAP PO PRN (09:04)
[2020-06-14] MEDS: Sodium Chloride 0.9% 1,000 ML IV SCH ×2 (13:19→23:08)
[2020-06-14] MEDS: Acetaminophen 325 MG TAB PO PRN (16:27)
[2020-06-15] MEDS: methylPREDNISolone Sod Succ 40 MG VIAL IVP SCH (00:22)
[2020-06-15] MEDS: Metoprolol Tartrate 5 MG/5 ML VIAL IVP PRN (04:51)
[2020-06-15] MEDS ORDERED: hydrALAZINE 20 MG/ML VIAL SLOW IVP PRN (05:18)
[2020-06-15] MEDS ORDERED: guaiFENesin ER 600 MG TAB PO PRN (05:18)
[2020-06-15 05:40] LABS: #Lymphocytes 0.5 thou/uL (1.20-3.40); #Monocytes 0.4 thou/uL (0.11-0.59); #Neutrophils 7.8 thou/uL (1.40-6.50); %Eosinophils 0.2 % (0.0-10.0); %Lymphocytes 5.4 % (21.0-51.0); %Monocytes 4.3 % (0.0-10.0); %Neutrophils 90.1 % (42.0-75.0); Hemoglobin 12.1 g/dL (14.0-18.0); Mean Corpuscular HGB CONC 32.6 g/dL (32.0-36.0); Mean Corpuscular Hemoglobin 33.6 pg (27.0-31.0); Mean Platelet Volume 7.9 fL (7.4-10.4); Platelet Count 198 thou/uL (130-400); RBC Distribution Width 11.7 % (11.5-14.5); Red Blood Cell (RBC) Count 3.61 mill/uL (4.70-6.10); White Blood Cell (WBC) Count 8.6 thou/uL (4.8-10.8)
[2020-06-15 05:49] LABS: Anion Gap 13 mmol/L (10-20); BUN (Urea Nitrogen) 11 mg/dL (8.4-25.7); Calc. Creatinine Clearance 161 mL/min (70-130); Calcium 8.2 mg/dL (7.8-10.44); Carbon Dioxide 26 mmol/L (22-29); Chloride 99 mmol/L (98-107); Glucose 128 mg/dL (70-105); Potassium 3.6 mmol/L (3.5-5.1); Sodium 134 mmol/L (136-145)
[2020-06-15] MEDS ORDERED: XYLOCAINE 2%-EPI 1:100,000 20 ML VIAL ONE (06:53)
[2020-06-15] MEDS ORDERED: Bupivacaine 0.25% HCL 30 ML VIAL ONE (06:53)
[2020-06-15] MEDS ORDERED: B & O ONE (06:55)
[2020-06-15] MEDS ORDERED: predniSONE 50 MG TAB PO SCH (08:00)
[2020-06-15] MEDS: Mometasone 200 MCG/Formoterol 5 MCG 120 PUFF INHALER INH SCH (08:01)
[2020-06-15] MEDS: hydrALAZINE 25 MG TAB PO SCH ×2 (08:12→16:53)
[2020-06-15] MEDS: Thiamine 100 MG TAB PO SCH (08:12)
[2020-06-15] MEDS: Enoxaparin Sodium 40 MG/0.4 ML SYRINGE SC SCH (08:12)
[2020-06-15] MEDS: Nystatin 500,000 UNITS/5 ML UDCUP SSW SCH (08:12)
[2020-06-15] MEDS: Multivitamin W/ Minerals 1 TAB PO SCH (08:12)
[2020-06-15] MEDS: Spironolactone 25 MG TAB PO SCH (08:12)
[2020-06-15] MEDS: cloNIDine 0.2 MG TAB PO SCH (08:12)
[2020-06-15] MEDS ORDERED: Albumin 5% 500 ML ONE (08:20)
[2020-06-15 16:38] VITALS: BP 175/92; TEMP 98.2
== END 2020-06-15 18:10 | disposition home or self-care (01) | DRG 595 ==
LOC: ERS 19:12 → ERHOLD 06-12 00:54 → OBSVTOIN 06-12 00:54 → 2NO 06-12 17:03 → ONC 06-13 18:09
PROVIDERS: ADMIT Internal Medicine; ATTEND Internal Medicine
DX: L40.9 Psoriasis, unspecified (principal); J96.21 Acute and chronic respiratory failure with hypoxia; J44.1 Chronic obstructive pulmonary disease with (acute) exacerbation; E87.2 Acidosis; B37.0 Candidal stomatitis; Z20.822 Contact with and (suspected) exposure to COVID-19; D70.9 Neutropenia, unspecified; M51.36 Other intervertebral disc degeneration, lumbar region; I10 Essential (primary) hypertension; F17.210 Nicotine dependence, cigarettes, uncomplicated; E87.6 Hypokalemia; F10.10 Alcohol abuse, uncomplicated; K74.60 Unspecified cirrhosis of liver; F12.10 Cannabis abuse, uncomplicated; M48.061 Spinal stenosis, lumbar region without neurogenic claudication; Z28.21 Immunization not carried out because of patient refusal; Z88.1 Allergy status to other antibiotic agents; Z88.8 Allergy status to other drugs, medicaments and biological substances; Z79.899 Other long term (current) drug therapy; Z79.51 Long term (current) use of inhaled steroids; Z79.52 Long term (current) use of systemic steroids; Z83.6 Family history of other diseases of the respiratory system
CPT/HCPCS: 36415; 71045; 72148; 80048; 80053; 80076; 81003; 83605; 83735; 85025; 85652; 86140; 87040; 87086; 87635; 94640; 96365; 96366; 96367; 96375; G0378; J1650; J1940; J2060; J2270; J2543; J2920; J2930; J3370; J3490; J7512; J7620; P9045; Q0163; S0020; U0003; U0005

== ENCOUNTER 2020-06-28 15:59 | Emergency (ER) | payer SELFPAY ==
[2020-06-28] MEDS ORDERED: methylPREDNISolone Sod Succ/PF 125 MG/2 ML VIAL ONE ×2 (18:11→19:14)
[2020-06-28] MEDS ORDERED: Albuterol Sulfate 1.25 MG/3 ML NEB ONE (18:39)
[2020-06-28 18:51] LABS: #Basophils 0.2 thou/uL (0.0-0.2); #Eosinphils 0.5 thou/uL (0.0-0.7); #Lymphocytes 2.6 thou/uL (1.20-3.40); #Monocytes 0.4 thou/uL (0.11-0.59); #Neutrophils 6.1 thou/uL (1.40-6.50); %Basophils 1.6 % (0.0-1.0); %Eosinophils 5.3 % (0.0-10.0); %Lymphocytes 26.6 % (21.0-51.0); %Monocytes 4.5 % (0.0-10.0); Hemoglobin 13.8 g/dL (14.0-18.0); Mean Corpuscular Hemoglobin 33.5 pg (27.0-31.0); Mean Platelet Volume 7.8 fL (7.4-10.4); Platelet Count 243 thou/uL (130-400); RBC Distribution Width 12.2 % (11.5-14.5); Red Blood Cell (RBC) Count 4.13 mill/uL (4.70-6.10); White Blood Cell (WBC) Count 9.8 thou/uL (4.8-10.8)
[2020-06-28 19:07] LABS: ALT (SGPT) 55 U/L (8-55); AST (SGOT) 99 U/L (5-34); Acetaminophen Less than 6.0 mcg/mL (10.0-30.0); Albumin 3.7 g/dL (3.5-5.0); Alcohol 333 mg/dL (Less than 10); Alkaline Phosphatase 227 U/L (40-110); Anion Gap 19 mmol/L (10-20); BUN (Urea Nitrogen) Less than 4 mg/dL (8.4-25.7); Bilirubin, Total 0.6 mg/dL (0.2-1.2); CK (CPK) 40 U/L (30-200); Calc. Creatinine Clearance 0 mL/min (70-130); Calcium 8.5 mg/dL (7.8-10.44); Carbon Dioxide 22 mmol/L (22-29); Chloride 99 mmol/L (98-107); Globulin 3.7 g/dL (2.4-3.5); Glucose 105 mg/dL (70-105); Potassium 4.3 mmol/L (3.5-5.1); Protein, Total 7.4 g/dL (6.0-8.3); Salicylate Less than 8.0 mg/dL (15.0-30.0); Sodium 136 mmol/L (136-145)
== END 2020-06-28 21:05 | disposition home or self-care (01) ==
LOC: ERS 15:59
DX: J44.1 Chronic obstructive pulmonary disease with (acute) exacerbation (principal); F10.10 Alcohol abuse, uncomplicated; I10 Essential (primary) hypertension; Z87.891 Personal history of nicotine dependence; Z79.899 Other long term (current) drug therapy; Y90.8 Blood alcohol level of 240 mg/100 ml or more
CPT/HCPCS: 36415; 71045; 80053; 80307; 82550; 83690; 83735; 84484; 85025; 93005; 96374; J2930; J7620

== ENCOUNTER 2020-08-01 21:08 | Inpatient (IN) | payer SELFPAY ==
[2020-08-01 21:56] LABS: #Basophils 0.1 thou/uL (0.0-0.2); #Eosinphils 0.5 thou/uL (0.0-0.7); #Lymphocytes 2.3 thou/uL (1.20-3.40); #Monocytes 1.5 thou/uL (0.11-0.59); #Neutrophils 7.9 thou/uL (1.40-6.50); %Basophils 0.9 % (0.0-1.0); %Lymphocytes 18.8 % (21.0-51.0); %Monocytes 11.9 % (0.0-10.0); %Neutrophils 64.5 % (42.0-75.0); Hemoglobin 11.6 g/dL (14.0-18.0); Mean Corpuscular HGB CONC 32.2 g/dL (32.0-36.0); Mean Corpuscular Hemoglobin 33.3 pg (27.0-31.0); Mean Platelet Volume 7.6 fL (7.4-10.4); Platelet Count 294 thou/uL (130-400); RBC Distribution Width 12.6 % (11.5-14.5); Red Blood Cell (RBC) Count 3.47 mill/uL (4.70-6.10); White Blood Cell (WBC) Count 12.3 thou/uL (4.8-10.8)
[2020-08-01 22:18] LABS: ALT (SGPT) 45 U/L (8-55); AST (SGOT) 132 U/L (5-34); Albumin 2.9 g/dL (3.5-5.0); Alkaline Phosphatase 255 U/L (40-110); Anion Gap 16 mmol/L (10-20); BUN (Urea Nitrogen) Less than 4 mg/dL (8.4-25.7); Bilirubin, Total 1.5 mg/dL (0.2-1.2); Calc. Creatinine Clearance 0 mL/min (70-130); Calcium 8.3 mg/dL (7.8-10.44); Carbon Dioxide 20 mmol/L (22-29); Chloride 96 mmol/L (98-107); Globulin 3.9 g/dL (2.4-3.5); Glucose 101 mg/dL (70-105); Potassium 4.3 mmol/L (3.5-5.1); Protein, Total 6.8 g/dL (6.0-8.3); Sodium 128 mmol/L (136-145)
[2020-08-01] MEDS ORDERED: Furosemide 20 MG/2 ML VIAL ONE (22:20)
[2020-08-02] MEDS ORDERED: Furosemide 40 MG/4 ML VIAL SLOW IVP SCH ×2 (01:21→09:00)
[2020-08-02] MEDS ORDERED: Ondansetron PF 4 MG/2 ML Vial IVP PRN (01:30)
[2020-08-02] MEDS ORDERED: Acetaminophen 325 MG TAB PO PRN (01:30)
[2020-08-02] MEDS ORDERED: Spironolactone 100 MG TAB PO SCH (01:30)
[2020-08-02] MEDS ORDERED: Ondansetron ODT 4 MG TAB PO PRN (01:30)
[2020-08-02 02:01] LABS: SARS-CoV-2 NAA Rapid Test Not Detected (NotDetected)
[2020-08-02 03:03] VITALS: BMI 29.4
[2020-08-02] MEDS: HYDROcodone/Acetaminophen 5/325 mg Tablet PO PRN (03:41)
[2020-08-02 05:17] LABS: #Basophils 0.1 thou/uL (0.0-0.2); #Eosinphils 0.5 thou/uL (0.0-0.7); #Lymphocytes 1.6 thou/uL (1.20-3.40); #Monocytes 1.2 thou/uL (0.11-0.59); #Neutrophils 6.8 thou/uL (1.40-6.50); %Basophils 1.2 % (0.0-1.0); %Eosinophils 4.8 % (0.0-10.0); %Lymphocytes 15.5 % (21.0-51.0); %Monocytes 11.5 % (0.0-10.0); Hemoglobin 11.5 g/dL (14.0-18.0); Mean Corpuscular HGB CONC 33.9 g/dL (32.0-36.0); Mean Corpuscular Hemoglobin 35.1 pg (27.0-31.0); Mean Platelet Volume 7.5 fL (7.4-10.4); Platelet Count 244 thou/uL (130-400); RBC Distribution Width 12.7 % (11.5-14.5); Red Blood Cell (RBC) Count 3.27 mill/uL (4.70-6.10); White Blood Cell (WBC) Count 10.2 thou/uL (4.8-10.8)
[2020-08-02 05:36] LABS: Anion Gap 15 mmol/L (10-20); BUN (Urea Nitrogen) Less than 4 mg/dL (8.4-25.7); Calc. Creatinine Clearance 163 mL/min (70-130); Calcium 8.3 mg/dL (7.8-10.44); Carbon Dioxide 24 mmol/L (22-29); Chloride 97 mmol/L (98-107); Glucose 100 mg/dL (70-105); Potassium 3.7 mmol/L (3.5-5.1); Sodium 132 mmol/L (136-145)
[2020-08-02 06:08] LABS: INR-International Normal Ratio 1.2; PTT 33.8 sec (22.9-36.1); Prothrombin Time 15.7 sec (12.0-14.7)
[2020-08-02] MEDS: Mometasone 200 MCG/Formoterol 5 MCG 120 PUFF INHALER INH SCH ×2 (07:05→19:58)
[2020-08-02] MEDS: hydrALAZINE 25 MG TAB PO SCH ×3 (08:59→21:46)
[2020-08-02] MEDS ORDERED: Sodium Bicarbonate 2.5 MEQ/5 ML VIAL ONE (09:09)
[2020-08-02] MEDS ORDERED: Lidocaine 1% PF 5 ML VIAL ONE (09:09)
[2020-08-02 11:23] LABS: RBC Count-Automated (BF) 166 /cu.mm; WBC/Nucleated-Auto (BF) 207 uL
[2020-08-02 11:30] LABS: BF Color Yellow; Body Fluid Source Ascites Body Fluid; Clarity Hazy (Clear); Tube # EDTA
[2020-08-02] MEDS ORDERED: predniSONE 50 MG TAB PO SCH (12:45)
[2020-08-02] MEDS: Enoxaparin Sodium 40 MG/0.4 ML SYRINGE SC SCH (12:48)
[2020-08-02 14:31] LABS: BF Segmented Neutrophils 15 %; Cell Count Non Hematic 60 %; Lymphocytes 25 %
[2020-08-03] MEDS: HYDROcodone/Acetaminophen 5/325 mg Tablet PO PRN (05:19)
[2020-08-03] MEDS ORDERED: Furosemide 40 MG TAB PO SCH (07:30)
[2020-08-03] MEDS: Mometasone 200 MCG/Formoterol 5 MCG 120 PUFF INHALER INH SCH (07:41)
[2020-08-03] MEDS ORDERED: Spironolactone 100 MG TAB PO SCH (08:00)
[2020-08-03] MEDS ORDERED: predniSONE 50 MG TAB PO SCH (08:00)
[2020-08-03 08:22] VITALS: BP 157/86; TEMP 98.1
[2020-08-03] MEDS: hydrALAZINE 25 MG TAB PO SCH (08:33)
[2020-08-03] MEDS: Enoxaparin Sodium 40 MG/0.4 ML SYRINGE SC SCH (08:33)
== END 2020-08-03 10:40 | disposition home or self-care (01) | DRG 432 ==
LOC: ERS 21:08 → 2SW 08-02 00:43 → OBSVTOIN 08-02 00:43
PROVIDERS: ADMIT Student in an Organized Health Care Education/Training Program; ATTEND Internal Medicine
PROC: 0W9G3ZZ Drainage of Peritoneal Cavity, Percutaneous Approach (ICD-10-PCS; principal; 2020-08-02)
DX: K70.31 Alcoholic cirrhosis of liver with ascites (principal); J96.01 Acute respiratory failure with hypoxia; J44.1 Chronic obstructive pulmonary disease with (acute) exacerbation; E87.1 Hypo-osmolality and hyponatremia; D53.9 Nutritional anemia, unspecified; I10 Essential (primary) hypertension; Z20.822 Contact with and (suspected) exposure to COVID-19; E88.09 Other disorders of plasma-protein metabolism, not elsewhere classified; G83.9 Paralytic syndrome, unspecified; Z88.1 Allergy status to other antibiotic agents; Z88.8 Allergy status to other drugs, medicaments and biological substances; Z98.890 Other specified postprocedural states; Z79.51 Long term (current) use of inhaled steroids; Z87.891 Personal history of nicotine dependence
CPT/HCPCS: 0240U; 36415; 49083; 71045; 80048; 80053; 83880; 84484; 85025; 85060; 85610; 85730; 87070; 87205; 89051; 93005; 94640; 94760; 96374; 96375; G0378; J1650; J1940; J1956; J7512; J7620; Q0162

== ENCOUNTER 2020-10-04 16:21 | Inpatient (IN) | payer SELFPAY ==
[2020-10-04 22:18] LABS: #Basophils 0.1 thou/uL (0.0-0.2); #Eosinphils 0.2 thou/uL (0.0-0.7); #Lymphocytes 2.6 thou/uL (1.20-3.40); #Monocytes 1.4 thou/uL (0.11-0.59); #Neutrophils 7.8 thou/uL (1.40-6.50); %Basophils 1.1 % (0.0-1.0); %Eosinophils 1.3 % (0.0-10.0); %Lymphocytes 21.4 % (21.0-51.0); %Monocytes 11.9 % (0.0-10.0); %Neutrophils 64.3 % (42.0-75.0); Hemoglobin 13.9 g/dL (14.0-18.0); Mean Corpuscular HGB CONC 33.4 g/dL (32.0-36.0); Mean Corpuscular Hemoglobin 34.2 pg (27.0-31.0); Mean Platelet Volume 5.2 fL (7.4-10.4); Platelet Count 301 thou/uL (130-400); RBC Distribution Width 12.1 % (11.5-14.5); Red Blood Cell (RBC) Count 4.07 mill/uL (4.70-6.10); White Blood Cell (WBC) Count 12.1 thou/uL (4.8-10.8)
[2020-10-04] MEDS ORDERED: Magnesium 2 GM/50 ML BAG (IN WATER) ONE (22:32)
[2020-10-04] MEDS ORDERED: Azithromycin 500 MG VIAL ONE (22:32)
[2020-10-04 23:30] LABS: Bilirubin Negative (Negative); Blood, Urine Negative (Negative); Clarity Clear (Clear); Glucose, Urine (Dipstick) Normal (Negative); Ketone, Urine Negative (Negative); Leukocyte Negative Leu/uL (Negative); Nitrite Negative (Negative); Protein, Urine (Dipstick) Negative (Neg-Trace); Specific Gravity, Urine 1.005 (1.002-1.036); Urobilinogen Normal mg/dL (Less than 2)
[2020-10-04 23:31] LABS: INR-International Normal Ratio 1.3; Prothrombin Time 16.4 sec (12.0-14.7)
[2020-10-04 23:37] LABS: Calcium 8.4 mg/dL (7.8-10.44); Glucose 98 mg/dL (70-105)
[2020-10-04 23:38] LABS: Carbon Dioxide 21 mmol/L (22-29); Globulin 4.5 g/dL (2.4-3.5); Protein, Total 7.5 g/dL (6.0-8.3)
[2020-10-04 23:39] LABS: Bilirubin, Total 1.1 mg/dL (0.2-1.2)
[2020-10-04 23:40] LABS: Alkaline Phosphatase 238 U/L (40-110); Calc. Creatinine Clearance 0 mL/min (70-130)
[2020-10-04 23:41] LABS: BUN (Urea Nitrogen) Less than 4 mg/dL (8.4-25.7)
[2020-10-04 23:42] LABS: AST (SGOT) 110 U/L (5-34)
[2020-10-04 23:43] LABS: ALT (SGPT) 29 U/L (8-55)
[2020-10-05 00:02] LABS: Chloride 95 mmol/L (98-107); Potassium 4.8 mmol/L (3.5-5.1); Sodium 127 mmol/L (136-145)
[2020-10-05 00:05] LABS: Anion Gap 18 mmol/L (10-20)
[2020-10-05] MEDS ORDERED: Furosemide 20 MG/2 ML VIAL ONE (01:07)
[2020-10-05] MEDS ORDERED: Ondansetron ODT 4 MG TAB SL PRN (07:45)
[2020-10-05] MEDS ORDERED: Acetaminophen 325 MG TAB PO PRN (07:45)
[2020-10-05] MEDS ORDERED: Ondansetron PF 4 MG/2 ML Vial IVP PRN (07:45)
[2020-10-05] MEDS ORDERED: Furosemide 40 MG/4 ML VIAL SLOW IVP SCH (11:00)
[2020-10-05] MEDS ORDERED: Spironolactone 25 MG TAB PO SCH (11:00)
[2020-10-05 11:28] LABS: SARS-CoV-2 PCR by NAA Not Detected (NotDetected)
[2020-10-05] MEDS ORDERED: Furosemide 40 MG/4 ML VIAL ONE (12:41)
[2020-10-05] MEDS ORDERED: hydrALAZINE 25 MG TAB ONE (16:22)
[2020-10-05] MEDS: hydrALAZINE 25 MG TAB PO SCH ×2 (16:26→21:52)
[2020-10-05] MEDS: Mometasone 200 MCG/Formoterol 5 MCG 120 PUFF INHALER INH SCH (18:17)
[2020-10-05 21:19] VITALS: BMI 29.2
[2020-10-06 05:41] LABS: Hemoglobin 13.4 g/dL (14.0-18.0); Mean Corpuscular HGB CONC 32.5 g/dL (32.0-36.0); Mean Corpuscular Hemoglobin 33.2 pg (27.0-31.0); Mean Platelet Volume 7.2 fL (7.4-10.4); Platelet Count 253 thou/uL (130-400); Red Blood Cell (RBC) Count 4.05 mill/uL (4.70-6.10); White Blood Cell (WBC) Count 11.7 thou/uL (4.8-10.8)
[2020-10-06 05:43] LABS: ALT (SGPT) 22 U/L (8-55); AST (SGOT) 68 U/L (5-34); Albumin 2.4 g/dL (3.5-5.0); Alkaline Phosphatase 180 U/L (40-110); Anion Gap 14 mmol/L (10-20); BUN (Urea Nitrogen) 4 mg/dL (8.4-25.7); Bilirubin, Total 1.1 mg/dL (0.2-1.2); Calc. Creatinine Clearance 159 mL/min (70-130); Calcium 7.7 mg/dL (7.8-10.44); Carbon Dioxide 18 mmol/L (22-29); Chloride 94 mmol/L (98-107); Globulin 4.2 g/dL (2.4-3.5); Glucose 106 mg/dL (70-105); Potassium 3.3 mmol/L (3.5-5.1); Protein, Total 6.6 g/dL (6.0-8.3); Sodium 123 mmol/L (136-145)
[2020-10-06] MEDS: Mometasone 200 MCG/Formoterol 5 MCG 120 PUFF INHALER INH SCH ×2 (06:15→17:39)
[2020-10-06 06:28] LABS: Band 15 % (5-11); Lymphocytes 20 % (21-51); MDiff Complete? YES; Monocytes 11 % (0-10); Neutrophil 54 % (42-75)
[2020-10-06] MEDS ORDERED: Spironolactone 25 MG TAB PO SCH (08:00)
[2020-10-06] MEDS ORDERED: Spironolactone 100 MG TAB PO SCH (09:00)
[2020-10-06] MEDS ORDERED: Furosemide 40 MG/4 ML VIAL SLOW IVP SCH (09:00)
[2020-10-06] MEDS: hydrALAZINE 25 MG TAB PO SCH ×3 (09:41→19:49)
[2020-10-06] MEDS ORDERED: Sodium Chloride 0.9% 1,000 ML IV SCH (10:15)
[2020-10-06] MEDS: Albumin 25% 25 GM/100 ML BOT IVPB SCH ×3 (10:58→19:49)
[2020-10-06] MEDS: traMADol HCl 50 MG TAB PO PRN (16:56)
[2020-10-06] MEDS ORDERED: HYDROcodone/Acetaminophen 5/325 mg Tablet PO SCH (18:00)
[2020-10-06] MEDS ORDERED: Sucralfate 1 GM TAB PO SCH (18:30)
[2020-10-06] MEDS: methylPREDNISolone Sod Succ 40 MG VIAL IVP SCH (20:04)
[2020-10-06] MEDS: Sucralfate 1 GM TAB PO SCH (21:09)
[2020-10-07] MEDS: methylPREDNISolone Sod Succ 40 MG VIAL IVP SCH (05:49)
[2020-10-07 06:11] LABS: #Lymphocytes 0.9 thou/uL (1.20-3.40); #Monocytes 0.3 thou/uL (0.11-0.59); #Neutrophils 7.5 thou/uL (1.40-6.50); %Basophils 0.1 % (0.0-1.0); %Eosinophils 0.1 % (0.0-10.0); %Lymphocytes 10.1 % (21.0-51.0); %Monocytes 3.8 % (0.0-10.0); %Neutrophils 85.9 % (42.0-75.0); Hemoglobin 12.8 g/dL (14.0-18.0); Mean Corpuscular HGB CONC 34.4 g/dL (32.0-36.0); Mean Platelet Volume 7.3 fL (7.4-10.4); Platelet Count 263 thou/uL (130-400); Red Blood Cell (RBC) Count 3.66 mill/uL (4.70-6.10); White Blood Cell (WBC) Count 8.8 thou/uL (4.8-10.8)
[2020-10-07 06:29] LABS: Anion Gap 15 mmol/L (10-20); BUN (Urea Nitrogen) 4 mg/dL (8.4-25.7); Calc. Creatinine Clearance 157 mL/min (70-130); Carbon Dioxide 21 mmol/L (22-29); Chloride 96 mmol/L (98-107); Glucose 154 mg/dL (70-105); Potassium 3.2 mmol/L (3.5-5.1); Sodium 129 mmol/L (136-145)
[2020-10-07] MEDS: Mometasone 200 MCG/Formoterol 5 MCG 120 PUFF INHALER INH SCH ×2 (06:42→19:27)
[2020-10-07] MEDS: Furosemide 40 MG TAB PO SCH (07:38)
[2020-10-07] MEDS: traMADol HCl 50 MG TAB PO PRN (07:38)
[2020-10-07] MEDS: Sucralfate 1 GM TAB PO SCH ×4 (07:38→20:20)
[2020-10-07] MEDS: hydrALAZINE 25 MG TAB PO SCH ×3 (08:46→20:19)
[2020-10-07] MEDS: Spironolactone 100 MG TAB PO SCH (08:46)
[2020-10-07] MEDS: Albumin 25% 25 GM/100 ML BOT IVPB SCH (08:46)
[2020-10-07] MEDS ORDERED: Potassium Chloride 20 MEQ TAB PO SCH (10:45)
[2020-10-07] MEDS: Simethicone Chewable 80 MG TAB PO SCH ×2 (11:05→17:12)
[2020-10-07] MEDS ORDERED: Folic Acid 1 MG TAB PO SCH (18:00)
[2020-10-07] MEDS ORDERED: Thiamine 100 MG TAB PO SCH (18:00)
[2020-10-07] MEDS ORDERED: predniSONE 20 MG TAB PO SCH (21:00)
[2020-10-07] MEDS ORDERED: diphenhydrAMINE 25 MG CAP PO SCH (21:45)
[2020-10-08 05:10] LABS: Anion Gap 12 mmol/L (10-20); BUN (Urea Nitrogen) 5 mg/dL (8.4-25.7); Calc. Creatinine Clearance 155 mL/min (70-130); Calcium 8.5 mg/dL (7.8-10.44); Carbon Dioxide 24 mmol/L (22-29); Chloride 98 mmol/L (98-107); Glucose 177 mg/dL (70-105); Potassium 3.1 mmol/L (3.5-5.1); Sodium 131 mmol/L (136-145)
[2020-10-08] MEDS: Mometasone 200 MCG/Formoterol 5 MCG 120 PUFF INHALER INH SCH (07:47)
[2020-10-08] MEDS ORDERED: Potassium Chloride 20 MEQ TAB PO SCH ×3 (08:30→13:15)
[2020-10-08] MEDS: Furosemide 40 MG TAB PO SCH (08:40)
[2020-10-08] MEDS: Simethicone Chewable 80 MG TAB PO SCH ×2 (08:40→11:39)
[2020-10-08] MEDS: Sucralfate 1 GM TAB PO SCH ×2 (08:40→11:39)
[2020-10-08] MEDS: Spironolactone 100 MG TAB PO SCH (08:41)
[2020-10-08] MEDS: hydrALAZINE 25 MG TAB PO SCH ×2 (08:41→14:07)
[2020-10-08 11:33] LABS: Potassium 3.2 mmol/L (3.5-5.1)
[2020-10-08 12:00] VITALS: BP 145/85; TEMP 98.4
[2020-10-08] MEDS ORDERED: predniSONE 20 MG TAB PO SCH (21:00)
== END 2020-10-08 14:48 | disposition home or self-care (01) | DRG 432 ==
LOC: ERS 16:21 → ERHOLD 10-05 01:10 → 2SE 10-05 20:52
PROVIDERS: ADMIT Internal Medicine; ATTEND Internal Medicine
DX: K70.31 Alcoholic cirrhosis of liver with ascites (principal); J96.20 Acute and chronic respiratory failure, unspecified whether with hypoxia or hypercapnia; E87.1 Hypo-osmolality and hyponatremia; J44.1 Chronic obstructive pulmonary disease with (acute) exacerbation; K76.6 Portal hypertension; Z20.822 Contact with and (suspected) exposure to COVID-19; F10.10 Alcohol abuse, uncomplicated; I10 Essential (primary) hypertension; F12.11 Cannabis abuse, in remission; L40.9 Psoriasis, unspecified; K64.4 Residual hemorrhoidal skin tags; E87.6 Hypokalemia; Z87.891 Personal history of nicotine dependence; Z88.6 Allergy status to analgesic agent; Z88.1 Allergy status to other antibiotic agents; Z79.899 Other long term (current) drug therapy; Z79.51 Long term (current) use of inhaled steroids; Z71.41 Alcohol abuse counseling and surveillance of alcoholic
CPT/HCPCS: 36415; 71045; 76705; 80048; 80053; 81003; 83735; 83880; 84484; 85007; 85025; 85027; 85610; 85730; 87040; 87086; 93005; 93306; 94640; J0456; J1940; J2920; J3475; J7512; J7620; P9047; Q0163; U0003; U0005

== ENCOUNTER 2020-12-06 16:21 | Inpatient (IN) | payer SELFPAY ==
[2020-12-06 17:24] LABS: #Basophils 0.1 thou/uL (0.0-0.2); #Eosinphils 0.3 thou/uL (0.0-0.7); #Lymphocytes 1.4 thou/uL (1.20-3.40); %Basophils 0.6 % (0.0-1.0); %Lymphocytes 13.3 % (21.0-51.0); %Neutrophils 74.2 % (42.0-75.0); Hemoglobin 12.4 g/dL (14.0-18.0); Mean Corpuscular HGB CONC 34.5 g/dL (32.0-36.0); Mean Corpuscular Hemoglobin 35.4 pg (27.0-31.0); Mean Platelet Volume 6.9 fL (7.4-10.4); Platelet Count 304 thou/uL (130-400); RBC Distribution Width 12.4 % (11.5-14.5); Red Blood Cell (RBC) Count 3.51 mill/uL (4.70-6.10); White Blood Cell (WBC) Count 10.8 thou/uL (4.8-10.8)
[2020-12-06 18:04] LABS: ALT (SGPT) 24 U/L (8-55); AST (SGOT) 58 U/L (5-34); Albumin 2.8 g/dL (3.5-5.0); Alkaline Phosphatase 178 U/L (40-110); Anion Gap 14 mmol/L (10-20); BUN (Urea Nitrogen) Less than 4 mg/dL (8.4-25.7); Bilirubin, Total 1.7 mg/dL (0.2-1.2); Calc. Creatinine Clearance 0 mL/min (70-130); Calcium 8.8 mg/dL (7.8-10.44); Carbon Dioxide 22 mmol/L (22-29); Chloride 94 mmol/L (98-107); Globulin 4.1 g/dL (2.4-3.5); Glucose 85 mg/dL (70-105); Potassium 3.7 mmol/L (3.5-5.1); Protein, Total 6.9 g/dL (6.0-8.3); Sodium 126 mmol/L (136-145)
[2020-12-06 22:38] VITALS: BMI 29.3
[2020-12-06] MEDS ORDERED: Acetaminophen 650 MG Suppository PR PRN (23:03)
[2020-12-06] MEDS ORDERED: Ondansetron ODT 4 MG TAB PO PRN (23:03)
[2020-12-06] MEDS ORDERED: Ondansetron PF 4 MG/2 ML Vial IVP PRN (23:03)
[2020-12-06] MEDS ORDERED: Acetaminophen 325 MG TAB PO PRN (23:03)
[2020-12-06] MEDS ORDERED: Furosemide 40 MG/4 ML VIAL SLOW IVP SCH (23:15)
[2020-12-06 23:51] LABS: Anion Gap 14 mmol/L (10-20); BUN (Urea Nitrogen) Less than 4 mg/dL (8.4-25.7); Calc. Creatinine Clearance 165 mL/min (70-130); Calcium 8.9 mg/dL (7.8-10.44); Carbon Dioxide 24 mmol/L (22-29); Chloride 94 mmol/L (98-107); Glucose 101 mg/dL (70-105); Sodium 128 mmol/L (136-145)
[2020-12-07 03:01] LABS: Fluid, Protein 2.3 g/dL (Not Available)
[2020-12-07 03:18] LABS: RBC Count-Automated (BF) 215 /cu.mm; WBC/Nucleated-Auto (BF) 304 uL
[2020-12-07 03:21] LABS: BF Color Yellow; Body Fluid Source Ascites Body Fluid; Clarity Clear (Clear); Tube # 1
[2020-12-07 04:21] LABS: BF Segmented Neutrophils 16 %; Cell Count Non Hematic 43 %; Lymphocytes 40 %
[2020-12-07 05:53] LABS: #Basophils 0.1 thou/uL (0.0-0.2); #Eosinphils 0.2 thou/uL (0.0-0.7); #Lymphocytes 1.4 thou/uL (1.20-3.40); #Monocytes 1.3 thou/uL (0.11-0.59); %Basophils 0.5 % (0.0-1.0); %Eosinophils 2.5 % (0.0-10.0); %Lymphocytes 14.2 % (21.0-51.0); %Monocytes 12.5 % (0.0-10.0); %Neutrophils 70.3 % (42.0-75.0); Hemoglobin 12.7 g/dL (14.0-18.0); Mean Corpuscular HGB CONC 33.5 g/dL (32.0-36.0); Mean Corpuscular Hemoglobin 34.5 pg (27.0-31.0); Mean Platelet Volume 7.3 fL (7.4-10.4); Platelet Count 286 thou/uL (130-400); RBC Distribution Width 12.3 % (11.5-14.5)
[2020-12-07 05:58] LABS: Anion Gap 9 mmol/L (10-20); BUN (Urea Nitrogen) 4 mg/dL (8.4-25.7); Calc. Creatinine Clearance 151 mL/min (70-130); Calcium 8.7 mg/dL (7.8-10.44); Carbon Dioxide 27 mmol/L (22-29); Chloride 96 mmol/L (98-107); Glucose 88 mg/dL (70-105); Potassium 3.9 mmol/L (3.5-5.1); Sodium 128 mmol/L (136-145)
[2020-12-07] MEDS: Enoxaparin Sodium 40 MG/0.4 ML SYRINGE SC SCH (09:17)
[2020-12-07] MEDS: Spironolactone 100 MG TAB PO SCH (09:17)
[2020-12-07] MEDS: Furosemide 40 MG/4 ML VIAL SLOW IVP SCH (09:18)
[2020-12-07] MEDS: Albumin 25% 25 GM/100 ML BOT IVPB SCH ×2 (13:27→21:26)
[2020-12-07] MEDS: predniSONE 20 MG TAB PO SCH (17:38)
[2020-12-07] MEDS: Mometasone 200 MCG/Formoterol 5 MCG 120 PUFF INHALER INH SCH (18:56)
[2020-12-07] MEDS: Morphine 2 MG/ML VIAL SLOW IVP PRN (23:19)
[2020-12-08 03:44] LABS: SARS-CoV-2 PCR by NAA Not Detected (NotDetected)
[2020-12-08 05:34] LABS: #Lymphocytes 1.3 thou/uL (1.20-3.40); #Monocytes 0.6 thou/uL (0.11-0.59); #Neutrophils 5.5 thou/uL (1.40-6.50); %Basophils 0.3 % (0.0-1.0); %Eosinophils 0.2 % (0.0-10.0); %Lymphocytes 17.2 % (21.0-51.0); %Neutrophils 74.3 % (42.0-75.0); Mean Platelet Volume 7.2 fL (7.4-10.4); Platelet Count 266 thou/uL (130-400); RBC Distribution Width 12.3 % (11.5-14.5); Red Blood Cell (RBC) Count 3.44 mill/uL (4.70-6.10); White Blood Cell (WBC) Count 7.4 thou/uL (4.8-10.8)
[2020-12-08] MEDS: Albumin 25% 25 GM/100 ML BOT IVPB SCH ×2 (05:42→14:58)
[2020-12-08 05:44] LABS: INR-International Normal Ratio 1.4; Prothrombin Time 16.8 sec (12.0-14.7)
[2020-12-08 06:03] LABS: ALT (SGPT) 20 U/L (8-55); AST (SGOT) 47 U/L (5-34); Albumin 2.9 g/dL (3.5-5.0); Alkaline Phosphatase 134 U/L (40-110); Anion Gap 11 mmol/L (10-20); BUN (Urea Nitrogen) 4 mg/dL (8.4-25.7); Bilirubin, Total 1.2 mg/dL (0.2-1.2); Calc. Creatinine Clearance 162 mL/min (70-130); Calcium 8.8 mg/dL (7.8-10.44); Carbon Dioxide 25 mmol/L (22-29); Chloride 99 mmol/L (98-107); Globulin 3.6 g/dL (2.4-3.5); Glucose 130 mg/dL (70-105); Potassium 3.4 mmol/L (3.5-5.1); Protein, Total 6.5 g/dL (6.0-8.3); Sodium 132 mmol/L (136-145)
[2020-12-08] MEDS: Morphine 2 MG/ML VIAL SLOW IVP PRN ×2 (08:09→16:40)
[2020-12-08] MEDS: cloNIDine 0.2 MG TAB PO SCH (08:09)
[2020-12-08] MEDS: predniSONE 20 MG TAB PO SCH ×2 (08:09→16:41)
[2020-12-08] MEDS: Thiamine 100 MG TAB PO SCH (08:09)
[2020-12-08] MEDS: Spironolactone 100 MG TAB PO SCH (08:09)
[2020-12-08] MEDS: Furosemide 40 MG/4 ML VIAL SLOW IVP SCH (08:10)
[2020-12-08] MEDS: Folic Acid 1 MG TAB PO SCH (08:10)
[2020-12-08] MEDS: Enoxaparin Sodium 40 MG/0.4 ML SYRINGE SC SCH (08:25)
[2020-12-08] MEDS ORDERED: Spironolactone 100 MG TAB PO SCH (09:00)
[2020-12-08] MEDS: Mometasone 200 MCG/Formoterol 5 MCG 120 PUFF INHALER INH SCH ×2 (13:59→19:24)
[2020-12-09 08:56] LABS: AST (SGOT) 45 U/L (5-34); Albumin 3.2 g/dL (3.5-5.0); Alkaline Phosphatase 111 U/L (40-110); Anion Gap 18 mmol/L (10-20); BUN (Urea Nitrogen) 8 mg/dL (8.4-25.7); Bilirubin, Total 0.6 mg/dL (0.2-1.2); Calc. Creatinine Clearance 146 mL/min (70-130); Calcium 9.4 mg/dL (7.8-10.44); Carbon Dioxide 18 mmol/L (22-29); Chloride 103 mmol/L (98-107); Globulin 3.8 g/dL (2.4-3.5); Glucose 134 mg/dL (70-105); Sodium 134 mmol/L (136-145)
[2020-12-09] MEDS: Mometasone 200 MCG/Formoterol 5 MCG 120 PUFF INHALER INH SCH ×2 (09:02→18:51)
[2020-12-09] MEDS: Spironolactone 100 MG TAB PO SCH (09:10)
[2020-12-09] MEDS: cloNIDine 0.2 MG TAB PO SCH (09:10)
[2020-12-09] MEDS: predniSONE 20 MG TAB PO SCH ×2 (09:11→17:50)
[2020-12-09] MEDS: Furosemide 40 MG/4 ML VIAL SLOW IVP SCH (09:11)
[2020-12-09] MEDS: Thiamine 100 MG TAB PO SCH (09:11)
[2020-12-09] MEDS: Enoxaparin Sodium 40 MG/0.4 ML SYRINGE SC SCH (09:11)
[2020-12-09] MEDS: Folic Acid 1 MG TAB PO SCH (09:11)
[2020-12-09 10:02] LABS: ALT (SGPT) 18 U/L (8-55)
[2020-12-09] MEDS ORDERED: Torsemide 10 MG TAB PO SCH (17:30)
[2020-12-09] MEDS: Sodium Bicarbonate Tab 325 MG TAB PO SCH (21:02)
[2020-12-10 05:21] LABS: #Lymphocytes 0.9 thou/uL (1.20-3.40); #Monocytes 0.6 thou/uL (0.11-0.59); #Neutrophils 7.5 thou/uL (1.40-6.50); %Basophils 0.3 % (0.0-1.0); %Monocytes 6.9 % (0.0-10.0); %Neutrophils 82.7 % (42.0-75.0); Hemoglobin 12.8 g/dL (14.0-18.0); Mean Corpuscular HGB CONC 32.4 g/dL (32.0-36.0); Mean Corpuscular Hemoglobin 33.9 pg (27.0-31.0); Mean Platelet Volume 7.2 fL (7.4-10.4); Platelet Count 301 thou/uL (130-400); RBC Distribution Width 12.3 % (11.5-14.5); Red Blood Cell (RBC) Count 3.79 mill/uL (4.70-6.10)
[2020-12-10 05:38] LABS: Anion Gap 12 mmol/L (10-20); BUN (Urea Nitrogen) 12 mg/dL (8.4-25.7); Calc. Creatinine Clearance 149 mL/min (70-130); Calcium 8.9 mg/dL (7.8-10.44); Carbon Dioxide 29 mmol/L (22-29); Chloride 99 mmol/L (98-107); Glucose 119 mg/dL (70-105); Potassium 3.5 mmol/L (3.5-5.1); Sodium 136 mmol/L (136-145)
[2020-12-10 05:43] LABS: Lipase-Fluid 9 U/L (.)
[2020-12-10] MEDS: cloNIDine 0.1 MG TAB PO SCH ×2 (07:55→20:48)
[2020-12-10] MEDS: Spironolactone 100 MG TAB PO SCH (07:55)
[2020-12-10] MEDS: Sodium Bicarbonate Tab 325 MG TAB PO SCH ×2 (07:55→20:48)
[2020-12-10] MEDS: predniSONE 20 MG TAB PO SCH ×2 (07:56→18:02)
[2020-12-10] MEDS: Folic Acid 1 MG TAB PO SCH (07:56)
[2020-12-10] MEDS: Thiamine 100 MG TAB PO SCH (07:56)
[2020-12-10] MEDS: Enoxaparin Sodium 40 MG/0.4 ML SYRINGE SC SCH (07:57)
[2020-12-10] MEDS: Torsemide 20 MG TAB PO SCH (07:57)
[2020-12-10] MEDS: Morphine 2 MG/ML VIAL SLOW IVP PRN (08:10)
[2020-12-10] MEDS ORDERED: Potassium Chloride 20 MEQ TAB PO SCH (09:30)
[2020-12-10] MEDS: Mometasone 200 MCG/Formoterol 5 MCG 120 PUFF INHALER INH SCH ×2 (13:33→18:02)
[2020-12-10] MEDS: VANCOMYCIN 2 GRAM/400 ML BAG 2 GM in Premix Bag 1 BAG IVPB SCH (18:41)
[2020-12-10] MEDS ORDERED: Vancomycin 1 GM in Premix Bag 1 BAG IVPB SCH (21:00)
[2020-12-11] MEDS: VANCOMYCIN 2 GRAM/400 ML BAG 2 GM in Premix Bag 1 BAG IVPB SCH (05:32)
[2020-12-11 06:05] VITALS: TEMP 97.8
[2020-12-11 06:06] LABS: #Basophils 0.1 thou/uL (0.0-0.2); #Lymphocytes 1.3 thou/uL (1.20-3.40); #Monocytes 0.7 thou/uL (0.11-0.59); #Neutrophils 7.3 thou/uL (1.40-6.50); %Basophils 0.7 % (0.0-1.0); %Eosinophils 0.2 % (0.0-10.0); %Lymphocytes 13.6 % (21.0-51.0); %Monocytes 7.2 % (0.0-10.0); %Neutrophils 78.4 % (42.0-75.0); Hemoglobin 13.1 g/dL (14.0-18.0); Mean Corpuscular HGB CONC 34.2 g/dL (32.0-36.0); Mean Corpuscular Hemoglobin 35.9 pg (27.0-31.0); Mean Platelet Volume 7.3 fL (7.4-10.4); Platelet Count 263 thou/uL (130-400); RBC Distribution Width 12.3 % (11.5-14.5); Red Blood Cell (RBC) Count 3.65 mill/uL (4.70-6.10); White Blood Cell (WBC) Count 9.3 thou/uL (4.8-10.8)
[2020-12-11 06:16] LABS: INR-International Normal Ratio 1.2; Prothrombin Time 14.7 sec (12.0-14.7)
[2020-12-11 06:35] LABS: ALT (SGPT) 25 U/L (8-55); AST (SGOT) 54 U/L (5-34); Alkaline Phosphatase 109 U/L (40-110); Anion Gap 12 mmol/L (10-20); BUN (Urea Nitrogen) 15 mg/dL (8.4-25.7); Bilirubin, Total 0.5 mg/dL (0.2-1.2); CRP (Inflammatory) 0.56 mg/dL (= or < 0.5); Calc. Creatinine Clearance 151 mL/min (70-130); Calcium 9.2 mg/dL (7.8-10.44); Carbon Dioxide 30 mmol/L (22-29); Chloride 100 mmol/L (98-107); Globulin 3.6 g/dL (2.4-3.5); Glucose 106 mg/dL (70-105); Potassium 3.6 mmol/L (3.5-5.1); Protein, Total 6.6 g/dL (6.0-8.3); Sodium 138 mmol/L (136-145)
[2020-12-11] MEDS: Mometasone 200 MCG/Formoterol 5 MCG 120 PUFF INHALER INH SCH (07:04)
[2020-12-11] MEDS: Spironolactone 100 MG TAB PO SCH (09:03)
[2020-12-11] MEDS: Sodium Bicarbonate Tab 325 MG TAB PO SCH (09:03)
[2020-12-11] MEDS: predniSONE 20 MG TAB PO SCH (09:03)
[2020-12-11] MEDS: Enoxaparin Sodium 40 MG/0.4 ML SYRINGE SC SCH (09:03)
[2020-12-11] MEDS: Thiamine 100 MG TAB PO SCH (09:03)
[2020-12-11] MEDS: Folic Acid 1 MG TAB PO SCH (09:03)
[2020-12-11] MEDS: cloNIDine 0.1 MG TAB PO SCH (09:03)
[2020-12-11] MEDS: Torsemide 20 MG TAB PO SCH (09:03)
[2020-12-11 11:38] VITALS: BP 103/65
== END 2020-12-11 14:45 | disposition home or self-care (01) | DRG 433 ==
LOC: ERS 16:21 → SJJU 20:58
PROVIDERS: ADMIT Student in an Organized Health Care Education/Training Program; ATTEND Internal Medicine
PROC: 0W9G3ZZ Drainage of Peritoneal Cavity, Percutaneous Approach (ICD-10-PCS; principal; 2020-12-07)
DX: K70.31 Alcoholic cirrhosis of liver with ascites (principal); E22.2 Syndrome of inappropriate secretion of antidiuretic hormone; E87.2 Acidosis; L03.311 Cellulitis of abdominal wall; Z20.822 Contact with and (suspected) exposure to COVID-19; J44.9 Chronic obstructive pulmonary disease, unspecified; I10 Essential (primary) hypertension; F12.10 Cannabis abuse, uncomplicated; T50.1X5A Adverse effect of loop [high-ceiling] diuretics, initial encounter; F10.10 Alcohol abuse, uncomplicated; E87.6 Hypokalemia; Z88.1 Allergy status to other antibiotic agents; Z88.8 Allergy status to other drugs, medicaments and biological substances; Z87.891 Personal history of nicotine dependence; Z79.52 Long term (current) use of systemic steroids; Z79.899 Other long term (current) drug therapy; Z71.41 Alcohol abuse counseling and surveillance of alcoholic; Z79.51 Long term (current) use of inhaled steroids
CPT/HCPCS: 36415; 36416; 71045; 76705; 80048; 80053; 82040; 82042; 82150; 82945; 83615; 83690; 83880; 84157; 84484; 85025; 85060; 85610; 86140; 87070; 87205; 88112; 89051; 93005; 94640; J1650; J1940; J1956; J2270; J3370; J7512; J7620; P9047; U0003; U0005

== ENCOUNTER 2020-12-12 22:25 | Inpatient (IN) | payer SELFPAY ==
[2020-12-12] MEDS ORDERED: Dexamethasone 10 MG/ML VIAL ONE (23:14)
[2020-12-12 23:36] LABS: #Basophils 0.1 thou/uL (0.0-0.2); #Eosinphils 0.2 thou/uL (0.0-0.7); #Lymphocytes 3.4 thou/uL (1.20-3.40); #Monocytes 1.5 thou/uL (0.11-0.59); #Neutrophils 8.2 thou/uL (1.40-6.50); %Basophils 0.7 % (0.0-1.0); %Eosinophils 1.4 % (0.0-10.0); %Lymphocytes 25.4 % (21.0-51.0); %Monocytes 11.2 % (0.0-10.0); %Neutrophils 61.3 % (42.0-75.0); Hemoglobin 14.5 g/dL (14.0-18.0); Mean Corpuscular HGB CONC 32.3 g/dL (32.0-36.0); Mean Corpuscular Hemoglobin 33.3 pg (27.0-31.0); Mean Platelet Volume 7.5 fL (7.4-10.4); Platelet Count 297 thou/uL (130-400); RBC Distribution Width 12.4 % (11.5-14.5); Red Blood Cell (RBC) Count 4.37 mill/uL (4.70-6.10); White Blood Cell (WBC) Count 13.3 thou/uL (4.8-10.8)
[2020-12-12 23:50] LABS: ALT (SGPT) 72 U/L (8-55); AST (SGOT) 134 U/L (5-34); Albumin 3.5 g/dL (3.5-5.0); Alkaline Phosphatase 124 U/L (40-110); Anion Gap 18 mmol/L (10-20); BUN (Urea Nitrogen) 18 mg/dL (8.4-25.7); Bilirubin, Total 0.9 mg/dL (0.2-1.2); Calc. Creatinine Clearance 0 mL/min (70-130); Calcium 9.6 mg/dL (7.8-10.44); Carbon Dioxide 28 mmol/L (22-29); Chloride 92 mmol/L (98-107); Globulin 3.8 g/dL (2.4-3.5); Glucose 89 mg/dL (70-105); Potassium 3.5 mmol/L (3.5-5.1); Protein, Total 7.3 g/dL (6.0-8.3); Sodium 134 mmol/L (136-145)
[2020-12-13 04:03] LABS: SARS-CoV-2 NAA Rapid Test Not Detected (NotDetected)
== END 2020-12-13 12:23 | disposition home or self-care (01) | DRG 202 ==
LOC: ERS 22:25 → ERHOLD 12-13 02:03
PROVIDERS: ADMIT Student in an Organized Health Care Education/Training Program; ATTEND Student in an Organized Health Care Education/Training Program
DX: J20.9 Acute bronchitis, unspecified (principal); J44.1 Chronic obstructive pulmonary disease with (acute) exacerbation; J90 Pleural effusion, not elsewhere classified; Z20.822 Contact with and (suspected) exposure to COVID-19; K70.30 Alcoholic cirrhosis of liver without ascites; I10 Essential (primary) hypertension; F10.10 Alcohol abuse, uncomplicated; Z87.891 Personal history of nicotine dependence; Z88.6 Allergy status to analgesic agent; Z88.1 Allergy status to other antibiotic agents; Z79.899 Other long term (current) drug therapy; Z79.51 Long term (current) use of inhaled steroids
CPT/HCPCS: 0240U; 36415; 71045; 80053; 83880; 84484; 85025; 93005; 94644; 96374; J1100; J7620

== ENCOUNTER 2021-01-03 16:27 | Inpatient (IN) | payer SELFPAY ==
[2021-01-03 18:09] LABS: #Basophils 0.1 thou/uL (0.0-0.2); #Eosinphils 0.2 thou/uL (0.0-0.7); #Lymphocytes 1.7 thou/uL (1.20-3.40); #Monocytes 0.8 thou/uL (0.11-0.59); #Neutrophils 5.2 thou/uL (1.40-6.50); %Basophils 0.9 % (0.0-1.0); %Eosinophils 2.5 % (0.0-10.0); %Lymphocytes 21.9 % (21.0-51.0); %Monocytes 9.4 % (0.0-10.0); %Neutrophils 65.2 % (42.0-75.0); Hemoglobin 13.8 g/dL (14.0-18.0); Mean Corpuscular HGB CONC 33.4 g/dL (32.0-36.0); Mean Corpuscular Volume 98.8 fL (78.0-98.0); Mean Platelet Volume 7.2 fL (7.4-10.4); Platelet Count 211 thou/uL (130-400); RBC Distribution Width 11.9 % (11.5-14.5); Red Blood Cell (RBC) Count 4.19 mill/uL (4.70-6.10); White Blood Cell (WBC) Count 7.9 thou/uL (4.8-10.8)
[2021-01-03 18:31] LABS: ALT (SGPT) 21 U/L (8-55); AST (SGOT) 49 U/L (5-34); Albumin 3.3 g/dL (3.5-5.0); Alkaline Phosphatase 195 U/L (40-110); Anion Gap 15 mmol/L (10-20); BUN (Urea Nitrogen) Less than 4 mg/dL (8.4-25.7); Bilirubin, Total 1.4 mg/dL (0.2-1.2); Calc. Creatinine Clearance 0 mL/min (70-130); Calcium 8.6 mg/dL (7.8-10.44); Carbon Dioxide 21 mmol/L (22-29); Chloride 90 mmol/L (98-107); Globulin 3.6 g/dL (2.4-3.5); Glucose 83 mg/dL (70-105); Potassium 4.1 mmol/L (3.5-5.1); Protein, Total 6.9 g/dL (6.0-8.3); Sodium 122 mmol/L (136-145)
[2021-01-03] MEDS ORDERED: predniSONE 20 MG TAB ONE (18:40)
[2021-01-03] MEDS ORDERED: PROVENTIL INHALER 6.7 G (200 INHALATIONS) ONE (18:40)
[2021-01-03] MEDS ORDERED: Albuterol 200 PUFF (6.7GM INHALER) ONE (18:42)
[2021-01-03 21:18] VITALS: BMI 27.0
[2021-01-03] MEDS ORDERED: Ondansetron ODT 4 MG TAB PO PRN (21:58)
[2021-01-03] MEDS ORDERED: Ondansetron PF 4 MG/2 ML Vial IVP PRN (21:58)
[2021-01-03] MEDS ORDERED: Acetaminophen 325 MG TAB PO PRN (21:58)
[2021-01-03] MEDS ORDERED: Acetaminophen 650 MG Suppository PR PRN (21:58)
[2021-01-03] MEDS ORDERED: Bacteriostatic Water 30 ML VIAL FS PRN (22:15)
[2021-01-03] MEDS ORDERED: methylPREDNISolone Sod Succ 40 MG VIAL IVP SCH (22:15)
[2021-01-03 22:23] LABS: Anion Gap 15 mmol/L (10-20); BUN (Urea Nitrogen) Less than 4 mg/dL (8.4-25.7); Calc. Creatinine Clearance 143 mL/min (70-130); Calcium 8.9 mg/dL (7.8-10.44); Carbon Dioxide 21 mmol/L (22-29); Chloride 91 mmol/L (98-107); Glucose 115 mg/dL (70-105); Potassium 4.5 mmol/L (3.5-5.1); Sodium 122 mmol/L (136-145)
[2021-01-04 02:51] LABS: Anion Gap 12 mmol/L (10-20); BUN (Urea Nitrogen) 4 mg/dL (8.4-25.7); Calc. Creatinine Clearance 141 mL/min (70-130); Calcium 8.9 mg/dL (7.8-10.44); Carbon Dioxide 20 mmol/L (22-29); Chloride 97 mmol/L (98-107); Glucose 165 mg/dL (70-105); Potassium 4.5 mmol/L (3.5-5.1); Sodium 124 mmol/L (136-145)
[2021-01-04] MEDS ORDERED: hydrALAZINE 20 MG/ML VIAL SLOW IVP PRN (06:40)
[2021-01-04] MEDS ORDERED: Morphine 4 MG/ML VIAL SLOW IVP SCH (06:45)
[2021-01-04 08:37] LABS: Anion Gap 11 mmol/L (10-20); BUN (Urea Nitrogen) 4 mg/dL (8.4-25.7); Calc. Creatinine Clearance 143 mL/min (70-130); Carbon Dioxide 22 mmol/L (22-29); Chloride 99 mmol/L (98-107); Glucose 152 mg/dL (70-105); Potassium 4.3 mmol/L (3.5-5.1); Sodium 128 mmol/L (136-145)
[2021-01-04] MEDS: Enoxaparin Sodium 40 MG/0.4 ML SYRINGE SC SCH (08:46)
[2021-01-04] MEDS: methylPREDNISolone Sod Succ 40 MG VIAL IVP SCH (08:46)
[2021-01-04] MEDS ORDERED: Torsemide 10 MG TAB PO SCH (11:45)
[2021-01-04] MEDS ORDERED: Spironolactone 100 MG TAB PO SCH (11:45)
[2021-01-04 12:58] LABS: SARS-CoV-2 PCR by NAA Not Detected (NotDetected)
[2021-01-04] MEDS ORDERED: Lidocaine 1% PF 5 ML VIAL ONE (13:03)
[2021-01-04] MEDS ORDERED: Sodium Bicarbonate 2.5 MEQ/5 ML VIAL ONE (13:03)
[2021-01-04 14:38] LABS: RBC Count-Automated (BF) 494 /cu.mm; WBC/Nucleated-Auto (BF) 306 uL
[2021-01-04 14:58] LABS: BF Color Yellow; Body Fluid Source Ascites Body Fluid; Clarity Hazy (Clear); Tube # EDTA
[2021-01-04 15:22] LABS: BF Segmented Neutrophils 10 %; Cell Count Non Hematic 60 %; Lymphocytes 29 %
[2021-01-04 15:22] LABS: Anion Gap 12 mmol/L (10-20); BUN (Urea Nitrogen) 5 mg/dL (8.4-25.7); Calc. Creatinine Clearance 139 mL/min (70-130); Calcium 9.3 mg/dL (7.8-10.44); Carbon Dioxide 23 mmol/L (22-29); Chloride 99 mmol/L (98-107); Glucose 163 mg/dL (70-105); Potassium 4.1 mmol/L (3.5-5.1); Sodium 130 mmol/L (136-145)
[2021-01-04] MEDS ORDERED: Furosemide 40 MG/4 ML VIAL SLOW IVP SCH (19:30)
[2021-01-04 20:33] LABS: Anion Gap 12 mmol/L (10-20); BUN (Urea Nitrogen) 7 mg/dL (8.4-25.7); Calc. Creatinine Clearance 107 mL/min (70-130); Calcium 9.1 mg/dL (7.8-10.44); Carbon Dioxide 22 mmol/L (22-29); Chloride 100 mmol/L (98-107); Glucose 138 mg/dL (70-105); Potassium 4.1 mmol/L (3.5-5.1); Sodium 130 mmol/L (136-145)
[2021-01-05] MEDS: Spironolactone 100 MG TAB PO SCH (08:55)
[2021-01-05] MEDS: Enoxaparin Sodium 40 MG/0.4 ML SYRINGE SC SCH (08:55)
[2021-01-05] MEDS: Torsemide 10 MG TAB PO SCH (08:55)
[2021-01-05] MEDS: methylPREDNISolone Sod Succ 40 MG VIAL IVP SCH (08:56)
[2021-01-05 11:06] LABS: ALT (SGPT) 21 U/L (8-55); AST (SGOT) 32 U/L (5-34); Albumin 3.2 g/dL (3.5-5.0); Alkaline Phosphatase 152 U/L (40-110); Anion Gap 15 mmol/L (10-20); BUN (Urea Nitrogen) 10 mg/dL (8.4-25.7); Bilirubin, Total 0.5 mg/dL (0.2-1.2); Calc. Creatinine Clearance 105 mL/min (70-130); Carbon Dioxide 25 mmol/L (22-29); Chloride 100 mmol/L (98-107); Globulin 3.6 g/dL (2.4-3.5); Glucose 104 mg/dL (70-105); Potassium 3.7 mmol/L (3.5-5.1); Protein, Total 6.8 g/dL (6.0-8.3); Sodium 136 mmol/L (136-145)
[2021-01-05] MEDS ORDERED: Bisacodyl 5 MG TAB PO SCH (21:00)
[2021-01-06] MEDS: Enoxaparin Sodium 40 MG/0.4 ML SYRINGE SC SCH (09:12)
[2021-01-06] MEDS: methylPREDNISolone Sod Succ 40 MG VIAL IVP SCH (09:13)
[2021-01-06] MEDS: Torsemide 10 MG TAB PO SCH (09:25)
[2021-01-06] MEDS: Spironolactone 100 MG TAB PO SCH (09:25)
[2021-01-06 12:05] LABS: #Basophils 0.1 thou/uL (0.0-0.2); #Lymphocytes 1.1 thou/uL (1.20-3.40); #Monocytes 0.6 thou/uL (0.11-0.59); %Basophils 0.5 % (0.0-1.0); %Eosinophils 0.3 % (0.0-10.0); %Lymphocytes 10.2 % (21.0-51.0); %Monocytes 5.8 % (0.0-10.0); %Neutrophils 83.2 % (42.0-75.0); Hemoglobin 14.4 g/dL (14.0-18.0); Mean Corpuscular HGB CONC 34.4 g/dL (32.0-36.0); Mean Corpuscular Hemoglobin 34.8 pg (27.0-31.0); Mean Platelet Volume 7.2 fL (7.4-10.4); Platelet Count 235 thou/uL (130-400); RBC Distribution Width 12.4 % (11.5-14.5); Red Blood Cell (RBC) Count 4.12 mill/uL (4.70-6.10); White Blood Cell (WBC) Count 10.9 thou/uL (4.8-10.8)
[2021-01-06 12:30] LABS: ALT (SGPT) 27 U/L (8-55); AST (SGOT) 61 U/L (5-34); Albumin 3.2 g/dL (3.5-5.0); Alkaline Phosphatase 152 U/L (40-110); Anion Gap 12 mmol/L (10-20); BUN (Urea Nitrogen) 14 mg/dL (8.4-25.7); Bilirubin, Total 0.7 mg/dL (0.2-1.2); Calc. Creatinine Clearance 131 mL/min (70-130); Calcium 9.1 mg/dL (7.8-10.44); Carbon Dioxide 24 mmol/L (22-29); Chloride 99 mmol/L (98-107); Globulin 3.8 g/dL (2.4-3.5); Glucose 115 mg/dL (70-105); Potassium 4.4 mmol/L (3.5-5.1); Sodium 131 mmol/L (136-145)
[2021-01-06 17:09] VITALS: BP 142/89; TEMP 98
== END 2021-01-06 18:15 | disposition home or self-care (01) | DRG 433 ==
LOC: ERS 16:27 → T4-B 18:47 → OBSVTOIN 01-04 19:30
PROVIDERS: ADMIT Internal Medicine; ATTEND Internal Medicine
PROC: 0W9G3ZX Drainage of Peritoneal Cavity, Percutaneous Approach, Diagnostic (ICD-10-PCS; principal; 2021-01-04)
DX: K70.31 Alcoholic cirrhosis of liver with ascites (principal); J44.1 Chronic obstructive pulmonary disease with (acute) exacerbation; E22.2 Syndrome of inappropriate secretion of antidiuretic hormone; Z20.822 Contact with and (suspected) exposure to COVID-19; I10 Essential (primary) hypertension; F12.10 Cannabis abuse, uncomplicated; N62 Hypertrophy of breast; K59.00 Constipation, unspecified; F10.10 Alcohol abuse, uncomplicated; Z71.41 Alcohol abuse counseling and surveillance of alcoholic; Z88.1 Allergy status to other antibiotic agents; Z88.8 Allergy status to other drugs, medicaments and biological substances; Z87.891 Personal history of nicotine dependence; Z79.899 Other long term (current) drug therapy
CPT/HCPCS: 36415; 49083; 71045; 80048; 80053; 83735; 83880; 84484; 85025; 85060; 89051; 93005; 96372; 96374; 96375; 96376; G0378; J1650; J1940; J1956; J2270; J2920; J7512; J7620; U0003; U0005

== ENCOUNTER 2021-02-02 18:49 | Inpatient (IN) | payer SELFPAY ==
[2021-02-02 19:26] LABS: #Basophils 0.1 thou/uL (0.0-0.2); #Eosinphils 0.3 thou/uL (0.0-0.7); #Lymphocytes 2.2 thou/uL (1.20-3.40); #Monocytes 0.9 thou/uL (0.11-0.59); #Neutrophils 5.3 thou/uL (1.40-6.50); %Basophils 1.3 % (0.0-1.0); %Eosinophils 2.9 % (0.0-10.0); %Lymphocytes 25.2 % (21.0-51.0); %Monocytes 10.1 % (0.0-10.0); %Neutrophils 60.4 % (42.0-75.0); Hemoglobin 14.2 g/dL (14.0-18.0); Mean Corpuscular HGB CONC 34.2 g/dL (32.0-36.0); Mean Corpuscular Hemoglobin 33.8 pg (27.0-31.0); Mean Corpuscular Volume 98.9 fL (78.0-98.0); Mean Platelet Volume 6.4 fL (7.4-10.4); Platelet Count 255 thou/uL (130-400); RBC Distribution Width 11.9 % (11.5-14.5); White Blood Cell (WBC) Count 8.8 thou/uL (4.8-10.8)
[2021-02-02 19:49] LABS: Bilirubin Negative (Negative); Blood, Urine Negative (Negative); Clarity Clear (Clear); Glucose, Urine (Dipstick) Normal (Negative); Ketone, Urine Negative (Negative); Leukocyte Negative Leu/uL (Negative); Nitrite Negative (Negative); Protein, Urine (Dipstick) Negative (Neg-Trace); Specific Gravity, Urine 1.002 (1.002-1.036); Urobilinogen Normal mg/dL (Less than 2); pH, Urine 5.5 (5.0-9.0)
[2021-02-02 19:49] LABS: ALT (SGPT) 22 U/L (8-55); AST (SGOT) 56 U/L (5-34); Albumin 3.3 g/dL (3.5-5.0); Alkaline Phosphatase 200 U/L (40-110); Anion Gap 13 mmol/L (10-20); BUN (Urea Nitrogen) Less than 4 mg/dL (8.4-25.7); Bilirubin, Total 1.2 mg/dL (0.2-1.2); Calc. Creatinine Clearance 0 mL/min (70-130); Calcium 8.4 mg/dL (7.8-10.44); Carbon Dioxide 22 mmol/L (22-29); Chloride 90 mmol/L (98-107); Globulin 3.9 g/dL (2.4-3.5); Glucose 91 mg/dL (70-105); Lipase 46 U/L (8-78); Potassium 4.4 mmol/L (3.5-5.1); Protein, Total 7.2 g/dL (6.0-8.3); Sodium 121 mmol/L (136-145)
[2021-02-02 20:09] LABS: Acetaminophen Less than 6.0 mcg/mL (10.0-30.0); Alcohol 227 mg/dL (Less than 10); Salicylate Less than 8.0 mg/dL (15.0-30.0)
[2021-02-02 20:13] LABS: INR-International Normal Ratio 1.2; Prothrombin Time 15.5 sec (12.0-14.7)
[2021-02-02 20:15] LABS: PTT 35.8 sec (22.9-36.1)
[2021-02-02] MEDS ORDERED: Octreotide Acetate 100 MCG/ML VIAL ONE (20:16)
[2021-02-02] MEDS ORDERED: Pantoprazole 40 MG VIAL ONE (20:21)
[2021-02-02] MEDS ORDERED: Fentanyl 100 MCG/2 ML VIAL ONE (20:21)
[2021-02-02] MEDS ORDERED: Octreotide Acetate 1,250 MCG in Sodium Chloride 0.9% 250 ML 250 ML IVPB SCH (20:30)
[2021-02-02] MEDS ORDERED: Promethazine HCl 25 MG/ML VIAL ONE (21:04)
[2021-02-02 23:04] LABS: Amphetamine Not Detected (NotDetected); Barbiturates Screen Not Detected (NotDetected); Benzodiazepine Screen Not Detected (NotDetected); Cocaine Metabolite Screen Not Detected (NotDetected); Methadone Not Detected (NotDetected); Methamphetamine Not Detected (NotDetected); Opiate Screen Not Detected (NotDetected); Oxycodone Screen Not Detected (NotDetected); Phencyclidine (PCP) Not Detected (NotDetected); THC/Cannabinoid Screen Not Detected (NotDetected); Tricyclic Screen Not Detected (NotDetected)
[2021-02-03] MEDS ORDERED: Ondansetron PF 4 MG/2 ML Vial IVP PRN (00:15)
[2021-02-03] MEDS ORDERED: Acetaminophen 325 MG TAB PO PRN (00:15)
[2021-02-03] MEDS ORDERED: Ondansetron ODT 4 MG TAB SL PRN (00:15)
[2021-02-03] MEDS: Sodium Chloride 0.9% 1,000 ML IV SCH ×2 (00:24→20:34)
[2021-02-03] MEDS ORDERED: Lorazepam 1 MG TAB PO PRN (03:18)
[2021-02-03] MEDS ORDERED: Ondansetron ODT 4 MG TAB PO PRN (03:18)
[2021-02-03] MEDS ORDERED: Lorazepam 2 MG/ML VIAL IM PRN (03:18)
[2021-02-03] MEDS ORDERED: Electrolyte Replacement Protocol 1 EACH FS SCH (03:30)
[2021-02-03] MEDS: Thiamine HCl 200 MG/2 ML VIAL SLOW IVP SCH (04:11)
[2021-02-03] MEDS: Lorazepam 1 MG TAB PO SCH ×4 (05:31→23:18)
[2021-02-03 06:28] LABS: #Basophils 0.1 thou/uL (0.0-0.2); #Eosinphils 0.2 thou/uL (0.0-0.7); #Lymphocytes 1.6 thou/uL (1.20-3.40); #Monocytes 0.8 thou/uL (0.11-0.59); #Neutrophils 4.2 thou/uL (1.40-6.50); %Basophils 1.3 % (0.0-1.0); %Eosinophils 3.3 % (0.0-10.0); %Lymphocytes 23.3 % (21.0-51.0); %Monocytes 11.6 % (0.0-10.0); %Neutrophils 60.5 % (42.0-75.0); Hemoglobin 12.9 g/dL (14.0-18.0); Mean Corpuscular Hemoglobin 33.8 pg (27.0-31.0); Mean Corpuscular Volume 99.5 fL (78.0-98.0); Mean Platelet Volume 6.7 fL (7.4-10.4); Platelet Count 249 thou/uL (130-400); Red Blood Cell (RBC) Count 3.82 mill/uL (4.70-6.10); White Blood Cell (WBC) Count 6.9 thou/uL (4.8-10.8)
[2021-02-03 06:48] LABS: Anion Gap 15 mmol/L (10-20); BUN (Urea Nitrogen) Less than 4 mg/dL (8.4-25.7); Calc. Creatinine Clearance 134 mL/min (70-130); Calcium 8.4 mg/dL (7.8-10.44); Carbon Dioxide 19 mmol/L (22-29); Chloride 96 mmol/L (98-107); Glucose 151 mg/dL (70-105); Phosphorus 4.2 mg/dL (2.3-4.7); Potassium 4.9 mmol/L (3.5-5.1); Sodium 125 mmol/L (136-145)
[2021-02-03 06:49] LABS: Anion Gap 12 mmol/L (10-20); BUN (Urea Nitrogen) Less than 4 mg/dL (8.4-25.7); Calc. Creatinine Clearance 134 mL/min (70-130); Calcium 8.7 mg/dL (7.8-10.44); Carbon Dioxide 22 mmol/L (22-29); Chloride 97 mmol/L (98-107); Glucose 157 mg/dL (70-105); Magnesium 1.7 mg/dL (1.6-2.6); Potassium 4.9 mmol/L (3.5-5.1); Sodium 126 mmol/L (136-145)
[2021-02-03] MEDS ORDERED: Sodium Chloride 0.9% (PF) 10 ML VIAL FS PRN (07:00)
[2021-02-03] MEDS: Multivit, Therapeutic 1 TAB PO SCH (08:39)
[2021-02-03] MEDS: Enoxaparin Sodium 40 MG/0.4 ML SYRINGE SC SCH (08:39)
[2021-02-03] MEDS ORDERED: Magnesium 2 GM/50 ML 2 GM in Premix Bag 1 BAG IVPB SCH (09:00)
[2021-02-03] MEDS ORDERED: Pantoprazole 40 MG VIAL IVP SCH (09:00)
[2021-02-03] MEDS ORDERED: Folic Acid 1 MG TAB PO SCH (09:00)
[2021-02-03 14:26] LABS: Anion Gap 15 mmol/L (10-20); BUN (Urea Nitrogen) 4 mg/dL (8.4-25.7); Calc. Creatinine Clearance 130 mL/min (70-130); Calcium 8.6 mg/dL (7.8-10.44); Carbon Dioxide 22 mmol/L (22-29); Chloride 96 mmol/L (98-107); Glucose 172 mg/dL (70-105); Potassium 4.6 mmol/L (3.5-5.1); Sodium 128 mmol/L (136-145)
[2021-02-03 18:57] LABS: SARS-CoV-2 PCR by NAA Not Detected (NotDetected)
[2021-02-03 19:17] LABS: Anion Gap 13 mmol/L (10-20); BUN (Urea Nitrogen) 4 mg/dL (8.4-25.7); Calc. Creatinine Clearance 125 mL/min (70-130); Carbon Dioxide 22 mmol/L (22-29); Chloride 97 mmol/L (98-107); Glucose 120 mg/dL (70-105); Potassium 4.5 mmol/L (3.5-5.1); Sodium 127 mmol/L (136-145)
[2021-02-03] MEDS: Mometasone 200 MCG/Formoterol 5 MCG 120 PUFF INHALER INH SCH (19:42)
[2021-02-03 22:21] LABS: Anion Gap 12 mmol/L (10-20); BUN (Urea Nitrogen) 4 mg/dL (8.4-25.7); Calc. Creatinine Clearance 122 mL/min (70-130); Calcium 8.3 mg/dL (7.8-10.44); Carbon Dioxide 22 mmol/L (22-29); Chloride 96 mmol/L (98-107); Glucose 142 mg/dL (70-105); Potassium 4.3 mmol/L (3.5-5.1); Sodium 126 mmol/L (136-145)
[2021-02-04] MEDS ORDERED: Lorazepam 1 MG TAB PO PRN (03:18)
[2021-02-04] MEDS: Thiamine HCl 200 MG/2 ML VIAL SLOW IVP SCH (03:44)
[2021-02-04 04:17] LABS: #Basophils 0.1 thou/uL (0.0-0.2); #Eosinphils 0.2 thou/uL (0.0-0.7); #Neutrophils 5.2 thou/uL (1.40-6.50); %Basophils 1.1 % (0.0-1.0); %Eosinophils 2.9 % (0.0-10.0); %Lymphocytes 23.2 % (21.0-51.0); %Neutrophils 60.8 % (42.0-75.0); Hemoglobin 12.6 g/dL (14.0-18.0); Mean Corpuscular HGB CONC 34.2 g/dL (32.0-36.0); Mean Corpuscular Volume 99.5 fL (78.0-98.0); Mean Platelet Volume 6.7 fL (7.4-10.4); Platelet Count 232 thou/uL (130-400); Red Blood Cell (RBC) Count 3.69 mill/uL (4.70-6.10); White Blood Cell (WBC) Count 8.5 thou/uL (4.8-10.8)
[2021-02-04 04:53] LABS: Phosphorus 3.4 mg/dL (2.3-4.7)
[2021-02-04 04:54] LABS: ALT (SGPT) 19 U/L (8-55); AST (SGOT) 42 U/L (5-34); Albumin 2.7 g/dL (3.5-5.0); Alkaline Phosphatase 150 U/L (40-110); Anion Gap 11 mmol/L (10-20); BUN (Urea Nitrogen) 4 mg/dL (8.4-25.7); Bilirubin, Total 1.2 mg/dL (0.2-1.2); Calc. Creatinine Clearance 133 mL/min (70-130); Calcium 8.5 mg/dL (7.8-10.44); Carbon Dioxide 23 mmol/L (22-29); Chloride 98 mmol/L (98-107); Globulin 3.3 g/dL (2.4-3.5); Glucose 124 mg/dL (70-105); Magnesium 1.8 mg/dL (1.6-2.6); Potassium 4.2 mmol/L (3.5-5.1); Sodium 128 mmol/L (136-145)
[2021-02-04] MEDS: Lorazepam 1 MG TAB PO SCH ×4 (05:52→22:27)
[2021-02-04] MEDS: Mometasone 200 MCG/Formoterol 5 MCG 120 PUFF INHALER INH SCH ×2 (06:40→19:23)
[2021-02-04] MEDS: Multivit, Therapeutic 1 TAB PO SCH (07:57)
[2021-02-04] MEDS: Spironolactone 100 MG TAB PO SCH (07:57)
[2021-02-04] MEDS: Nadolol 40 MG TAB PO SCH (07:57)
[2021-02-04] MEDS: Folic Acid 1 MG TAB PO SCH (07:57)
[2021-02-04] MEDS: Enoxaparin Sodium 40 MG/0.4 ML SYRINGE SC SCH (07:58)
[2021-02-04] MEDS ORDERED: Torsemide 20 MG TAB PO SCH (09:00)
[2021-02-04] MEDS ORDERED: Magnesium 2 GM/50 ML 2 GM in Premix Bag 1 BAG IVPB SCH (15:00)
[2021-02-05] MEDS ORDERED: Lorazepam 1 MG TAB PO PRN (03:18)
[2021-02-05] MEDS: Thiamine HCl 200 MG/2 ML VIAL SLOW IVP SCH (04:00)
[2021-02-05] MEDS: Lorazepam 0.5 MG TAB PO SCH ×4 (05:34→18:44)
[2021-02-05 07:32] LABS: Magnesium 1.7 mg/dL (1.6-2.6)
[2021-02-05 08:09] LABS: #Basophils 0.1 thou/uL (0.0-0.2); #Eosinphils 0.5 thou/uL (0.0-0.7); #Lymphocytes 1.9 thou/uL (1.20-3.40); #Neutrophils 5.3 thou/uL (1.40-6.50); %Basophils 1.1 % (0.0-1.0); %Eosinophils 5.7 % (0.0-10.0); %Lymphocytes 21.9 % (21.0-51.0); %Monocytes 11.4 % (0.0-10.0); %Neutrophils 59.9 % (42.0-75.0); Hemoglobin 13.4 g/dL (14.0-18.0); Mean Corpuscular HGB CONC 33.9 g/dL (32.0-36.0); Mean Corpuscular Hemoglobin 33.9 pg (27.0-31.0); Mean Corpuscular Volume 99.9 fL (78.0-98.0); Mean Platelet Volume 7.3 fL (7.4-10.4); Platelet Count 249 thou/uL (130-400); Red Blood Cell (RBC) Count 3.95 mill/uL (4.70-6.10); White Blood Cell (WBC) Count 8.8 thou/uL (4.8-10.8)
[2021-02-05] MEDS ORDERED: Magnesium 2 GM/50 ML 2 GM in Premix Bag 1 BAG IVPB SCH (08:15)
[2021-02-05] MEDS: Mometasone 200 MCG/Formoterol 5 MCG 120 PUFF INHALER INH SCH ×2 (08:15→18:35)
[2021-02-05 08:24] LABS: ALT (SGPT) 16 U/L (8-55); AST (SGOT) 41 U/L (5-34); Albumin 2.6 g/dL (3.5-5.0); Alkaline Phosphatase 149 U/L (40-110); Anion Gap 10 mmol/L (10-20); BUN (Urea Nitrogen) 4 mg/dL (8.4-25.7); Bilirubin, Total 0.8 mg/dL (0.2-1.2); Calc. Creatinine Clearance 140 mL/min (70-130); Calcium 8.5 mg/dL (7.8-10.44); Carbon Dioxide 26 mmol/L (22-29); Chloride 99 mmol/L (98-107); Globulin 3.3 g/dL (2.4-3.5); Glucose 95 mg/dL (70-105); Potassium 4.4 mmol/L (3.5-5.1); Protein, Total 5.9 g/dL (6.0-8.3); Sodium 131 mmol/L (136-145)
[2021-02-05] MEDS: Nadolol 40 MG TAB PO SCH (08:47)
[2021-02-05] MEDS: Enoxaparin Sodium 40 MG/0.4 ML SYRINGE SC SCH (08:48)
[2021-02-05] MEDS: Multivit, Therapeutic 1 TAB PO SCH (08:48)
[2021-02-05] MEDS: Folic Acid 1 MG TAB PO SCH (08:49)
[2021-02-05] MEDS: Spironolactone 100 MG TAB PO SCH (08:50)
[2021-02-06] MEDS: Lorazepam 0.5 MG TAB PO SCH (00:23)
[2021-02-06] MEDS ORDERED: Lorazepam 0.5 MG TAB PO PRN (03:18)
[2021-02-06 05:20] VITALS: BMI 28.6
[2021-02-06 07:27] LABS: #Basophils 0.1 thou/uL (0.0-0.2); #Eosinphils 0.4 thou/uL (0.0-0.7); #Lymphocytes 2.1 thou/uL (1.20-3.40); #Neutrophils 3.9 thou/uL (1.40-6.50); %Basophils 1.3 % (0.0-1.0); %Eosinophils 5.3 % (0.0-10.0); %Lymphocytes 27.8 % (21.0-51.0); %Monocytes 13.8 % (0.0-10.0); %Neutrophils 51.8 % (42.0-75.0); Hemoglobin 12.7 g/dL (14.0-18.0); Mean Corpuscular HGB CONC 34.5 g/dL (32.0-36.0); Mean Corpuscular Hemoglobin 34.5 pg (27.0-31.0); Mean Platelet Volume 6.9 fL (7.4-10.4); Platelet Count 278 thou/uL (130-400); Red Blood Cell (RBC) Count 3.67 mill/uL (4.70-6.10); White Blood Cell (WBC) Count 7.5 thou/uL (4.8-10.8)
[2021-02-06 07:41] VITALS: BP 120/81; TEMP 97.8
[2021-02-06 07:46] LABS: ALT (SGPT) 20 U/L (8-55); AST (SGOT) 48 U/L (5-34); Albumin 2.6 g/dL (3.5-5.0); Alkaline Phosphatase 164 U/L (40-110); Anion Gap 11 mmol/L (10-20); BUN (Urea Nitrogen) 7 mg/dL (8.4-25.7); Bilirubin, Total 0.9 mg/dL (0.2-1.2); Calc. Creatinine Clearance 137 mL/min (70-130); Calcium 8.1 mg/dL (7.8-10.44); Carbon Dioxide 24 mmol/L (22-29); Chloride 98 mmol/L (98-107); Glucose 99 mg/dL (70-105); Potassium 4.3 mmol/L (3.5-5.1); Protein, Total 5.6 g/dL (6.0-8.3); Sodium 129 mmol/L (136-145)
[2021-02-06] MEDS: Mometasone 200 MCG/Formoterol 5 MCG 120 PUFF INHALER INH SCH (07:57)
[2021-02-06] MEDS: Nadolol 40 MG TAB PO SCH (08:52)
[2021-02-06] MEDS: Enoxaparin Sodium 40 MG/0.4 ML SYRINGE SC SCH (08:52)
[2021-02-06] MEDS: Spironolactone 100 MG TAB PO SCH (08:52)
[2021-02-06] MEDS: Folic Acid 1 MG TAB PO SCH (08:52)
[2021-02-06] MEDS: Multivit, Therapeutic 1 TAB PO SCH (08:52)
[2021-02-06] MEDS ORDERED: FLU VACC QS2021-22(6MOS UP)/PF 60 MCG/0.5 ML SYRINGE IM ONE (09:00)
[2021-02-06] MEDS ORDERED: Thiamine 100 MG TAB PO SCH (09:00)
[2021-02-06] MEDS ORDERED: Torsemide 10 MG TAB PO SCH (11:30)
[2021-02-07] MEDS ORDERED: Torsemide 10 MG TAB PO SCH (09:00)
== END 2021-02-06 11:53 | disposition home or self-care (01) | DRG 433 ==
LOC: ERS 18:49 → T4-B 21:30
PROVIDERS: ADMIT Student in an Organized Health Care Education/Training Program; ATTEND Internal Medicine
DX: K70.31 Alcoholic cirrhosis of liver with ascites (principal); E22.2 Syndrome of inappropriate secretion of antidiuretic hormone; E72.20 Disorder of urea cycle metabolism, unspecified; K64.9 Unspecified hemorrhoids; F10.129 Alcohol abuse with intoxication, unspecified; Y90.7 Blood alcohol level of 200-239 mg/100 ml; J44.9 Chronic obstructive pulmonary disease, unspecified; I10 Essential (primary) hypertension; F12.10 Cannabis abuse, uncomplicated; F17.210 Nicotine dependence, cigarettes, uncomplicated; K72.90 Hepatic failure, unspecified without coma; Z79.51 Long term (current) use of inhaled steroids; Z79.899 Other long term (current) drug therapy
CPT/HCPCS: 36415; 74018; 80048; 80053; 80306; 80307; 81003; 82140; 83690; 83735; 83930; 83935; 84100; 85025; 85610; 85730; 86850; 86900; 86901; 93005; 94640; 94760; 96365; 96367; 96375; 96376; C9113; J1650; J1956; J2354; J2550; J3010; J3411; J3475; J7050; J7620; U0003; U0005

== ENCOUNTER 2021-02-08 12:43 | Emergency (ER) | payer SELFPAY ==
[2021-02-08] MEDS ORDERED: Furosemide 40 MG/4 ML VIAL ONE (13:34)
[2021-02-08] MEDS ORDERED: Ondansetron ODT 8 MG TAB ONE (13:34)
[2021-02-08] MEDS ORDERED: Albuterol 200 PUFF (6.7GM INHALER) ONE (13:45)
[2021-02-08 13:59] LABS: #Basophils 0.1 thou/uL (0.0-0.2); #Eosinphils 0.3 thou/uL (0.0-0.7); #Lymphocytes 1.9 thou/uL (1.20-3.40); #Monocytes 0.9 thou/uL (0.11-0.59); #Neutrophils 5.1 thou/uL (1.40-6.50); %Basophils 1.2 % (0.0-1.0); %Eosinophils 3.4 % (0.0-10.0); %Lymphocytes 22.8 % (21.0-51.0); %Monocytes 10.5 % (0.0-10.0); Hemoglobin 14.3 g/dL (14.0-18.0); Mean Corpuscular HGB CONC 33.9 g/dL (32.0-36.0); Mean Corpuscular Hemoglobin 33.8 pg (27.0-31.0); Mean Corpuscular Volume 99.7 fL (78.0-98.0); Platelet Count 360 thou/uL (130-400); RBC Distribution Width 12.2 % (11.5-14.5); Red Blood Cell (RBC) Count 4.24 mill/uL (4.70-6.10); White Blood Cell (WBC) Count 8.1 thou/uL (4.8-10.8)
[2021-02-08 14:47] LABS: ALT (SGPT) 23 U/L (8-55); AST (SGOT) 55 U/L (5-34); Alkaline Phosphatase 183 U/L (40-110); Anion Gap 11 mmol/L (10-20); BUN (Urea Nitrogen) 5 mg/dL (8.4-25.7); Bilirubin, Total 1.2 mg/dL (0.2-1.2); Calc. Creatinine Clearance 0 mL/min (70-130); Carbon Dioxide 29 mmol/L (22-29); Chloride 91 mmol/L (98-107); Globulin 3.9 g/dL (2.4-3.5); Glucose 99 mg/dL (70-105); Potassium 4.4 mmol/L (3.5-5.1); Protein, Total 6.9 g/dL (6.0-8.3); Sodium 127 mmol/L (136-145)
[2021-02-08 15:26] LABS: RBC Count-Automated (BF) 472 /cu.mm; WBC/Nucleated-Auto (BF) 381 /cu.mm
[2021-02-08 15:35] LABS: BF Color Yellow; Body Fluid Source Paracentesis Fluid; Clarity Cloudy/Turbid (Clear); Tube # EDTA
[2021-02-08 15:42] LABS: BF Segmented Neutrophils 8 %; Cell Count Non Hematic 60 %; Lymphocytes 32 %
== END 2021-02-08 15:00 | disposition home or self-care (01) ==
LOC: ERS 12:43
DX: K74.60 Unspecified cirrhosis of liver (principal); R18.8 Other ascites; I10 Essential (primary) hypertension; J44.9 Chronic obstructive pulmonary disease, unspecified; Z79.899 Other long term (current) drug therapy; Z87.891 Personal history of nicotine dependence
CPT/HCPCS: 49082; 80053; 85025; 85060; 89051; 96372; J1940; Q0162

== ENCOUNTER 2021-02-13 17:30 | Inpatient (IN) | payer SELFPAY ==
[2021-02-13] MEDS ORDERED: Dexamethasone 10 MG/ML VIAL ONE (19:58)
[2021-02-13] MEDS ORDERED: Magnesium 2 GM/50 ML BAG (IN WATER) ONE (19:59)
[2021-02-13] MEDS ORDERED: Albuterol Sulfate 2.5 mg/3 ml Neb ONE (20:01)
[2021-02-13 21:30] LABS: #Basophils 0.1 thou/uL (0.0-0.2); #Eosinphils 0.4 thou/uL (0.0-0.7); #Lymphocytes 1.9 thou/uL (1.20-3.40); #Monocytes 0.6 thou/uL (0.11-0.59); #Neutrophils 5.4 thou/uL (1.40-6.50); %Basophils 1.6 % (0.0-1.0); %Lymphocytes 22.9 % (21.0-51.0); %Monocytes 6.9 % (0.0-10.0); %Neutrophils 63.7 % (42.0-75.0); Hemoglobin 13.9 g/dL (14.0-18.0); Mean Corpuscular HGB CONC 34.3 g/dL (32.0-36.0); Mean Corpuscular Hemoglobin 33.5 pg (27.0-31.0); Mean Corpuscular Volume 97.8 fL (78.0-98.0); Platelet Count 329 thou/uL (130-400); RBC Distribution Width 12.1 % (11.5-14.5); Red Blood Cell (RBC) Count 4.15 mill/uL (4.70-6.10); White Blood Cell (WBC) Count 8.5 thou/uL (4.8-10.8)
[2021-02-13 21:47] LABS: ALT (SGPT) 20 U/L (8-55); AST (SGOT) 55 U/L (5-34); Albumin 3.1 g/dL (3.5-5.0); Alkaline Phosphatase 173 U/L (40-110); Anion Gap 14 mmol/L (10-20); BUN (Urea Nitrogen) 5 mg/dL (8.4-25.7); Bilirubin, Total 1.1 mg/dL (0.2-1.2); Calc. Creatinine Clearance 0 mL/min (70-130); Carbon Dioxide 21 mmol/L (22-29); Chloride 90 mmol/L (98-107); Globulin 4.1 g/dL (2.4-3.5); Glucose 117 mg/dL (70-105); Potassium 4.3 mmol/L (3.5-5.1); Protein, Total 7.2 g/dL (6.0-8.3); Sodium 121 mmol/L (136-145)
[2021-02-13 23:44] LABS: SARS-CoV-2 NAA Rapid Test Not Detected (NotDetected)
[2021-02-14] MEDS ORDERED: Ondansetron PF 4 MG/2 ML Vial IVP PRN (01:00)
[2021-02-14] MEDS ORDERED: Ondansetron ODT 4 MG TAB SL PRN (01:00)
[2021-02-14] MEDS ORDERED: Benzonatate 100 MG CAP PO PRN (01:21)
[2021-02-14] MEDS ORDERED: Albuterol Sulfate 2.5 mg/3 ml Neb NEB PRN (01:24)
[2021-02-14 01:25] LABS: Troponin I Less than 0.010 ng/mL (< 0.028)
[2021-02-14] MEDS: Sodium Chloride 0.9% 1,000 ML IV SCH ×2 (01:38→14:44)
[2021-02-14] MEDS: traMADol HCl 50 MG TAB PO PRN ×2 (01:39→12:06)
[2021-02-14 02:27] VITALS: BMI 27.4
[2021-02-14] MEDS ORDERED: Lorazepam 2 MG/ML VIAL SLOW IVP PRN (02:51)
[2021-02-14] MEDS ORDERED: Electrolyte Replacement Protocol 1 EACH FS SCH (03:00)
[2021-02-14 04:18] LABS: Phosphorus 3.5 mg/dL (2.3-4.7)
[2021-02-14 04:47] LABS: Bacteria/HPF None Seen HPF (None Seen); Bilirubin Negative (Negative); Blood, Urine Negative (Negative); Clarity Clear (Clear); Glucose, Urine (Dipstick) 100 mg/dL (Negative); Ketone, Urine Negative (Negative); Leukocyte Negative Leu/uL (Negative); Nitrite Negative (Negative); Protein, Urine (Dipstick) Negative (Neg-Trace); RBC/HPF 0-3 HPF (0-3); Specific Gravity, Urine 1.004 (1.002-1.036); Squamous Epithelial None Seen HPF (0-3); Urobilinogen Normal mg/dL (Less than 2); WBC/HPF 0-3 HPF (0-3); pH, Urine 6.5 (5.0-9.0)
[2021-02-14 05:03] LABS: #Lymphocytes 0.5 thou/uL (1.20-3.40); #Monocytes 0.1 thou/uL (0.11-0.59); #Neutrophils 3.8 thou/uL (1.40-6.50); %Eosinophils 0.1 % (0.0-10.0); %Lymphocytes 10.5 % (21.0-51.0); %Monocytes 2.1 % (0.0-10.0); %Neutrophils 87.3 % (42.0-75.0); Hemoglobin 13.4 g/dL (14.0-18.0); Mean Corpuscular HGB CONC 34.3 g/dL (32.0-36.0); Mean Corpuscular Hemoglobin 33.7 pg (27.0-31.0); Mean Corpuscular Volume 98.2 fL (78.0-98.0); Mean Platelet Volume 6.8 fL (7.4-10.4); Platelet Count 309 thou/uL (130-400); Red Blood Cell (RBC) Count 3.96 mill/uL (4.70-6.10); White Blood Cell (WBC) Count 4.3 thou/uL (4.8-10.8)
[2021-02-14] MEDS: methylPREDNISolone Sod Succ 40 MG VIAL IVP SCH ×4 (05:07→23:44)
[2021-02-14 05:16] LABS: INR-International Normal Ratio 1.2; PTT 35.4 sec (22.9-36.1); Prothrombin Time 15.8 sec (12.0-14.7)
[2021-02-14 05:47] LABS: Anion Gap 14 mmol/L (10-20); BUN (Urea Nitrogen) 7 mg/dL (8.4-25.7); Calc. Creatinine Clearance 0 mL/min (70-130); Calcium 8.9 mg/dL (7.8-10.44); Carbon Dioxide 24 mmol/L (22-29); Chloride 94 mmol/L (98-107); Glucose 162 mg/dL (70-105); Potassium 4.7 mmol/L (3.5-5.1); Sodium 127 mmol/L (136-145)
[2021-02-14 05:52] LABS: Troponin I Less than 0.010 ng/mL (< 0.028)
[2021-02-14 07:33] LABS: Anion Gap 12 mmol/L (10-20); BUN (Urea Nitrogen) 6 mg/dL (8.4-25.7); Calc. Creatinine Clearance 0 mL/min (70-130); Calcium 9.5 mg/dL (7.8-10.44); Carbon Dioxide 24 mmol/L (22-29); Chloride 97 mmol/L (98-107); Glucose 135 mg/dL (70-105); Potassium 4.6 mmol/L (3.5-5.1); Sodium 128 mmol/L (136-145)
[2021-02-14] MEDS: Thiamine 100 MG TAB PO SCH (08:55)
[2021-02-14] MEDS: Folic Acid 1 MG TAB PO SCH (08:55)
[2021-02-14] MEDS: Famotidine 20 MG TAB PO SCH ×2 (08:55→20:20)
[2021-02-14] MEDS: Multivit, Therapeutic 1 TAB PO SCH (08:55)
[2021-02-14] MEDS ORDERED: FLU VACC QS2021-22(6MOS UP)/PF 60 MCG/0.5 ML SYRINGE IM ONE (09:00)
[2021-02-14 12:16] LABS: Anion Gap 14 mmol/L (10-20); BUN (Urea Nitrogen) 7 mg/dL (8.4-25.7); Calc. Creatinine Clearance 0 mL/min (70-130); Calcium 9.1 mg/dL (7.8-10.44); Carbon Dioxide 22 mmol/L (22-29); Chloride 98 mmol/L (98-107); Glucose 130 mg/dL (70-105); Potassium 4.4 mmol/L (3.5-5.1); Sodium 130 mmol/L (136-145)
[2021-02-14] MEDS ORDERED: Furosemide 40 MG/4 ML VIAL SLOW IVP SCH ×2 (13:45→15:00)
[2021-02-14] MEDS ORDERED: Nadolol 40 MG TAB PO SCH (18:15)
[2021-02-14 19:00] LABS: Anion Gap 14 mmol/L (10-20); BUN (Urea Nitrogen) 8 mg/dL (8.4-25.7); Calc. Creatinine Clearance 0 mL/min (70-130); Calcium 9.2 mg/dL (7.8-10.44); Carbon Dioxide 21 mmol/L (22-29); Chloride 96 mmol/L (98-107); Glucose 147 mg/dL (70-105); Potassium 4.2 mmol/L (3.5-5.1); Sodium 127 mmol/L (136-145)
[2021-02-15] MEDS ORDERED: Lorazepam 1 MG TAB PO PRN (02:48)
[2021-02-15] MEDS: methylPREDNISolone Sod Succ 40 MG VIAL IVP SCH ×4 (05:26→23:30)
[2021-02-15 06:46] LABS: #Lymphocytes 0.7 thou/uL (1.20-3.40); #Monocytes 0.3 thou/uL (0.11-0.59); #Neutrophils 12.3 thou/uL (1.40-6.50); %Basophils 0.3 % (0.0-1.0); %Lymphocytes 5.6 % (21.0-51.0); %Monocytes 2.3 % (0.0-10.0); %Neutrophils 91.8 % (42.0-75.0); Hemoglobin 13.9 g/dL (14.0-18.0); Mean Corpuscular HGB CONC 32.8 g/dL (32.0-36.0); Mean Corpuscular Hemoglobin 32.9 pg (27.0-31.0); Mean Platelet Volume 6.8 fL (7.4-10.4); Platelet Count 352 thou/uL (130-400); Red Blood Cell (RBC) Count 4.24 mill/uL (4.70-6.10); White Blood Cell (WBC) Count 13.4 thou/uL (4.8-10.8)
[2021-02-15 07:06] LABS: ALT (SGPT) 18 U/L (8-55); AST (SGOT) 37 U/L (5-34); Albumin 3.1 g/dL (3.5-5.0); Alkaline Phosphatase 153 U/L (40-110); Anion Gap 13 mmol/L (10-20); BUN (Urea Nitrogen) 10 mg/dL (8.4-25.7); Bilirubin, Total 0.6 mg/dL (0.2-1.2); Calc. Creatinine Clearance 0 mL/min (70-130); Calcium 9.4 mg/dL (7.8-10.44); Carbon Dioxide 24 mmol/L (22-29); Chloride 98 mmol/L (98-107); Globulin 4.3 g/dL (2.4-3.5); Glucose 132 mg/dL (70-105); Potassium 4.5 mmol/L (3.5-5.1); Protein, Total 7.4 g/dL (6.0-8.3); Sodium 130 mmol/L (136-145)
[2021-02-15] MEDS ORDERED: Nadolol 40 MG TAB PO SCH (09:00)
[2021-02-15] MEDS: Folic Acid 1 MG TAB PO SCH (09:08)
[2021-02-15] MEDS: Thiamine 100 MG TAB PO SCH (09:08)
[2021-02-15] MEDS: Famotidine 20 MG TAB PO SCH ×2 (09:08→20:42)
[2021-02-15] MEDS: Torsemide 10 MG TAB PO SCH (09:08)
[2021-02-15] MEDS: Spironolactone 100 MG TAB PO SCH (09:08)
[2021-02-15] MEDS: Multivit, Therapeutic 1 TAB PO SCH (09:08)
[2021-02-15] MEDS: traMADol HCl 50 MG TAB PO PRN (09:15)
[2021-02-15] MEDS ORDERED: predniSONE 20 MG TAB PO SCH (17:00)
[2021-02-16] MEDS: methylPREDNISolone Sod Succ 40 MG VIAL IVP SCH ×4 (04:46→21:21)
[2021-02-16] MEDS: Senokot S 8.6-50 MG TAB PO PRN ×2 (04:46→20:50)
[2021-02-16 07:49] LABS: #Lymphocytes 0.7 thou/uL (1.20-3.40); #Monocytes 0.6 thou/uL (0.11-0.59); #Neutrophils 11.8 thou/uL (1.40-6.50); %Lymphocytes 5.7 % (21.0-51.0); %Monocytes 4.2 % (0.0-10.0); %Neutrophils 90.1 % (42.0-75.0); Hemoglobin 13.2 g/dL (14.0-18.0); Mean Corpuscular HGB CONC 32.8 g/dL (32.0-36.0); Mean Corpuscular Hemoglobin 33.4 pg (27.0-31.0); Platelet Count 384 thou/uL (130-400); Red Blood Cell (RBC) Count 3.94 mill/uL (4.70-6.10); White Blood Cell (WBC) Count 13.1 thou/uL (4.8-10.8)
[2021-02-16 07:52] LABS: ALT (SGPT) 22 U/L (8-55); AST (SGOT) 41 U/L (5-34); Albumin 3.1 g/dL (3.5-5.0); Alkaline Phosphatase 130 U/L (40-110); Anion Gap 8 mmol/L (10-20); BUN (Urea Nitrogen) 16 mg/dL (8.4-25.7); Bilirubin, Total 0.5 mg/dL (0.2-1.2); Calc. Creatinine Clearance 131 mL/min (70-130); Calcium 9.5 mg/dL (7.8-10.44); Carbon Dioxide 29 mmol/L (22-29); Chloride 98 mmol/L (98-107); Globulin 3.9 g/dL (2.4-3.5); Glucose 115 mg/dL (70-105); Magnesium 2.2 mg/dL (1.6-2.6); Potassium 4.4 mmol/L (3.5-5.1); Sodium 131 mmol/L (136-145)
[2021-02-16] MEDS: traMADol HCl 50 MG TAB PO PRN (08:23)
[2021-02-16] MEDS: Torsemide 10 MG TAB PO SCH (08:26)
[2021-02-16] MEDS: Spironolactone 100 MG TAB PO SCH (08:27)
[2021-02-16] MEDS: Nadolol 40 MG TAB PO SCH (08:27)
[2021-02-16] MEDS: Folic Acid 1 MG TAB PO SCH (08:28)
[2021-02-16] MEDS: Multivit, Therapeutic 1 TAB PO SCH (08:28)
[2021-02-16] MEDS: Famotidine 20 MG TAB PO SCH ×2 (08:28→20:51)
[2021-02-16] MEDS: Thiamine 100 MG TAB PO SCH (08:29)
[2021-02-16] MEDS ORDERED: Amlodipine 5 MG TAB PO SCH (09:00)
[2021-02-16] MEDS ORDERED: methylPREDNISolone Sod Succ 40 MG VIAL IVP SCH (22:00)
[2021-02-17] MEDS: methylPREDNISolone Sod Succ 40 MG VIAL IVP SCH ×3 (05:31→22:10)
[2021-02-17 08:03] LABS: #Lymphocytes 0.7 thou/uL (1.20-3.40); #Monocytes 0.9 thou/uL (0.11-0.59); #Neutrophils 9.2 thou/uL (1.40-6.50); %Basophils 0.1 % (0.0-1.0); %Lymphocytes 6.3 % (21.0-51.0); %Neutrophils 85.6 % (42.0-75.0); Hemoglobin 13.9 g/dL (14.0-18.0); Mean Corpuscular HGB CONC 33.1 g/dL (32.0-36.0); Mean Corpuscular Hemoglobin 33.6 pg (27.0-31.0); Platelet Count 374 thou/uL (130-400); RBC Distribution Width 11.9 % (11.5-14.5); Red Blood Cell (RBC) Count 4.15 mill/uL (4.70-6.10); White Blood Cell (WBC) Count 10.7 thou/uL (4.8-10.8)
[2021-02-17 08:10] LABS: ALT (SGPT) 33 U/L (8-55); AST (SGOT) 57 U/L (5-34); Albumin 3.1 g/dL (3.5-5.0); Alkaline Phosphatase 128 U/L (40-110); Anion Gap 9 mmol/L (10-20); BUN (Urea Nitrogen) 18 mg/dL (8.4-25.7); Bilirubin, Total 0.5 mg/dL (0.2-1.2); Calc. Creatinine Clearance 131 mL/min (70-130); Calcium 9.5 mg/dL (7.8-10.44); Carbon Dioxide 28 mmol/L (22-29); Chloride 101 mmol/L (98-107); Globulin 3.9 g/dL (2.4-3.5); Glucose 112 mg/dL (70-105); Potassium 4.3 mmol/L (3.5-5.1); Sodium 134 mmol/L (136-145)
[2021-02-17] MEDS: Folic Acid 1 MG TAB PO SCH (08:39)
[2021-02-17] MEDS: Thiamine 100 MG TAB PO SCH (08:40)
[2021-02-17] MEDS: Famotidine 20 MG TAB PO SCH ×2 (08:40→19:49)
[2021-02-17] MEDS: Multivit, Therapeutic 1 TAB PO SCH (08:40)
[2021-02-17] MEDS: Senokot S 8.6-50 MG TAB PO PRN (08:40)
[2021-02-17] MEDS: Torsemide 10 MG TAB PO SCH (08:40)
[2021-02-17] MEDS: Nadolol 40 MG TAB PO SCH (08:40)
[2021-02-17] MEDS: Spironolactone 100 MG TAB PO SCH (08:40)
[2021-02-17] MEDS: Amlodipine 5 MG TAB PO SCH (08:54)
[2021-02-17] MEDS ORDERED: guaiFENesin/DM ER PO SCH (12:00)
[2021-02-17] MEDS ORDERED: Mometasone 200 MCG/Formoterol 5 MCG 120 PUFF INHALER INH SCH (13:00)
[2021-02-17] MEDS: Mometasone 200 MCG/Formoterol 5 MCG 120 PUFF INHALER INH SCH (18:24)
[2021-02-17] MEDS: guaiFENesin/DM ER PO SCH (19:50)
[2021-02-17 20:25] VITALS: TEMP 97.8
[2021-02-18] MEDS: methylPREDNISolone Sod Succ 40 MG VIAL IVP SCH (06:05)
[2021-02-18] MEDS: Mometasone 200 MCG/Formoterol 5 MCG 120 PUFF INHALER INH SCH (06:58)
[2021-02-18] MEDS: Amlodipine 5 MG TAB PO SCH (08:00)
[2021-02-18] MEDS: Nadolol 40 MG TAB PO SCH (08:00)
[2021-02-18] MEDS: Folic Acid 1 MG TAB PO SCH (08:00)
[2021-02-18] MEDS: Thiamine 100 MG TAB PO SCH (08:01)
[2021-02-18] MEDS: guaiFENesin/DM ER PO SCH (08:01)
[2021-02-18] MEDS: Famotidine 20 MG TAB PO SCH (08:01)
[2021-02-18] MEDS: Torsemide 10 MG TAB PO SCH (08:01)
[2021-02-18] MEDS: Multivit, Therapeutic 1 TAB PO SCH (08:01)
[2021-02-18] MEDS: Spironolactone 100 MG TAB PO SCH (08:01)
[2021-02-18] MEDS ORDERED: Nadolol 40 MG TAB PO SCH (09:00)
[2021-02-18 10:32] VITALS: BP 162/88
[2021-02-19] MEDS ORDERED: Nadolol 40 MG TAB PO SCH (09:00)
== END 2021-02-18 11:02 | disposition home or self-care (01) | DRG 432 ==
LOC: ERS 17:30 → T4-A 22:54
PROVIDERS: ADMIT Student in an Organized Health Care Education/Training Program; ATTEND Family Medicine
DX: K70.31 Alcoholic cirrhosis of liver with ascites (principal); J96.01 Acute respiratory failure with hypoxia; E22.2 Syndrome of inappropriate secretion of antidiuretic hormone; J44.1 Chronic obstructive pulmonary disease with (acute) exacerbation; Z20.822 Contact with and (suspected) exposure to COVID-19; I10 Essential (primary) hypertension; F12.10 Cannabis abuse, uncomplicated; K21.9 Gastro-esophageal reflux disease without esophagitis; Y90.0 Blood alcohol level of less than 20 mg/100 ml; F10.10 Alcohol abuse, uncomplicated; Z28.21 Immunization not carried out because of patient refusal; Z87.891 Personal history of nicotine dependence; Z88.6 Allergy status to analgesic agent; Z88.1 Allergy status to other antibiotic agents; Z79.899 Other long term (current) drug therapy; Z79.51 Long term (current) use of inhaled steroids; Z98.890 Other specified postprocedural states
CPT/HCPCS: 36415; 71046; 74177; 76705; 80048; 80053; 80307; 81001; 82140; 83735; 84100; 84484; 85025; 85610; 85730; 93005; 94640; 96365; 96375; J1100; J1940; J1956; J2920; J3475; J7050; J7611; J7620; U0002

== ENCOUNTER 2021-03-06 17:10 | Inpatient (IN) | payer SELFPAY ==
[2021-03-06 18:36] LABS: #Basophils 0.1 thou/uL (0.0-0.2); #Eosinphils 0.5 thou/uL (0.0-0.7); #Lymphocytes 2.4 thou/uL (1.20-3.40); #Monocytes 1.3 thou/uL (0.11-0.59); #Neutrophils 7.7 thou/uL (1.40-6.50); %Basophils 0.7 % (0.0-1.0); %Eosinophils 4.1 % (0.0-10.0); %Monocytes 10.6 % (0.0-10.0); %Neutrophils 64.6 % (42.0-75.0); Hemoglobin 14.3 g/dL (14.0-18.0); Mean Corpuscular HGB CONC 34.8 g/dL (32.0-36.0); Mean Corpuscular Hemoglobin 33.9 pg (27.0-31.0); Mean Corpuscular Volume 97.4 fL (78.0-98.0); Mean Platelet Volume 7.4 fL (7.4-10.4); Platelet Count 236 thou/uL (130-400); RBC Distribution Width 12.5 % (11.5-14.5); Red Blood Cell (RBC) Count 4.23 mill/uL (4.70-6.10); White Blood Cell (WBC) Count 11.8 thou/uL (4.8-10.8)
[2021-03-06 18:47] LABS: INR-International Normal Ratio 1.2
[2021-03-06 18:48] LABS: PTT 34.8 sec (22.9-36.1)
[2021-03-06 19:00] LABS: ALT (SGPT) 25 U/L (8-55); AST (SGOT) 35 U/L (5-34); Albumin 3.6 g/dL (3.5-5.0); Alkaline Phosphatase 145 U/L (40-110); Anion Gap 11 mmol/L (10-20); BUN (Urea Nitrogen) 9 mg/dL (8.4-25.7); Bilirubin, Total 1.7 mg/dL (0.2-1.2); Calc. Creatinine Clearance 0 mL/min (70-130); Calcium 9.2 mg/dL (7.8-10.44); Carbon Dioxide 25 mmol/L (22-29); Chloride 90 mmol/L (98-107); Globulin 4.1 g/dL (2.4-3.5); Glucose 98 mg/dL (70-105); Potassium 4.4 mmol/L (3.5-5.1); Protein, Total 7.7 g/dL (6.0-8.3); Sodium 122 mmol/L (136-145)
[2021-03-06] MEDS ORDERED: methylPREDNISolone Sod Succ/PF 125 MG/2 ML VIAL ONE ×2 (19:20→20:13)
[2021-03-06] MEDS ORDERED: Furosemide 20 MG/2 ML VIAL ONE ×2 (19:20→20:13)
[2021-03-06] MEDS ORDERED: Magnesium 2 GM/50 ML BAG (IN WATER) ONE ×2 (19:20→20:13)
[2021-03-07 00:43] LABS: SARS-CoV-2 NAA Rapid Test Not Detected (NotDetected)
[2021-03-07] MEDS ORDERED: Ondansetron PF 4 MG/2 ML Vial IVP PRN (01:22)
[2021-03-07] MEDS ORDERED: Acetaminophen 325 MG TAB PO PRN (01:22)
[2021-03-07 04:40] LABS: #Lymphocytes 0.6 thou/uL (1.20-3.40); #Neutrophils 4.4 thou/uL (1.40-6.50); %Basophils 0.2 % (0.0-1.0); %Eosinophils 0.1 % (0.0-10.0); %Lymphocytes 11.2 % (21.0-51.0); %Monocytes 0.8 % (0.0-10.0); %Neutrophils 87.6 % (42.0-75.0); Hemoglobin 14.4 g/dL (14.0-18.0); Mean Corpuscular HGB CONC 33.6 g/dL (32.0-36.0); Mean Corpuscular Hemoglobin 32.6 pg (27.0-31.0); Mean Platelet Volume 7.4 fL (7.4-10.4); Platelet Count 210 thou/uL (130-400); RBC Distribution Width 12.4 % (11.5-14.5); Red Blood Cell (RBC) Count 4.41 mill/uL (4.70-6.10)
[2021-03-07 05:00] LABS: Anion Gap 10 mmol/L (10-20); BUN (Urea Nitrogen) 11 mg/dL (8.4-25.7); Calc. Creatinine Clearance 147 mL/min (70-130); Calcium 9.4 mg/dL (7.8-10.44); Carbon Dioxide 26 mmol/L (22-29); Chloride 92 mmol/L (98-107); Glucose 156 mg/dL (70-105); Potassium 4.2 mmol/L (3.5-5.1); Sodium 124 mmol/L (136-145)
[2021-03-07] MEDS ORDERED: methylPREDNISolone Sod Succ 40 MG VIAL ONE ×2 (06:23→08:37)
[2021-03-07] MEDS ORDERED: Spironolactone 100 MG TAB PO SCH (08:00)
[2021-03-07] MEDS: methylPREDNISolone Sod Succ 40 MG VIAL IVP SCH ×4 (08:48→23:09)
[2021-03-07] MEDS ORDERED: Albuterol 200 PUFF (6.7GM INHALER) INH PRN (18:10)
[2021-03-07 18:11] VITALS: BMI 25.2
[2021-03-07] MEDS: Mometasone 200 MCG/Formoterol 5 MCG 120 PUFF INHALER INH SCH (19:02)
[2021-03-08] MEDS: methylPREDNISolone Sod Succ 40 MG VIAL IVP SCH ×2 (05:07→12:38)
[2021-03-08] MEDS: Mometasone 200 MCG/Formoterol 5 MCG 120 PUFF INHALER INH SCH ×2 (06:41→19:02)
[2021-03-08 07:53] LABS: #Lymphocytes 0.8 thou/uL (1.20-3.40); #Monocytes 0.8 thou/uL (0.11-0.59); #Neutrophils 13.8 thou/uL (1.40-6.50); %Basophils 0.1 % (0.0-1.0); %Eosinophils 0.1 % (0.0-10.0); %Neutrophils 89.8 % (42.0-75.0); Hemoglobin 14.1 g/dL (14.0-18.0); Mean Corpuscular HGB CONC 32.7 g/dL (32.0-36.0); Mean Corpuscular Hemoglobin 32.1 pg (27.0-31.0); Mean Corpuscular Volume 98.1 fL (78.0-98.0); Mean Platelet Volume 7.7 fL (7.4-10.4); Platelet Count 206 thou/uL (130-400); RBC Distribution Width 12.5 % (11.5-14.5); Red Blood Cell (RBC) Count 4.39 mill/uL (4.70-6.10); White Blood Cell (WBC) Count 15.4 thou/uL (4.8-10.8)
[2021-03-08 07:58] LABS: Anion Gap 12 mmol/L (10-20); BUN (Urea Nitrogen) 13 mg/dL (8.4-25.7); Calc. Creatinine Clearance 132 mL/min (70-130); Calcium 9.5 mg/dL (7.8-10.44); Carbon Dioxide 21 mmol/L (22-29); Chloride 99 mmol/L (98-107); Glucose 152 mg/dL (70-105); Potassium 4.4 mmol/L (3.5-5.1); Sodium 128 mmol/L (136-145)
[2021-03-08] MEDS: Nadolol 40 MG TAB PO SCH (09:07)
[2021-03-08] MEDS: Amlodipine 5 MG TAB PO SCH (09:07)
[2021-03-08] MEDS: Thiamine 100 MG TAB PO SCH (09:07)
[2021-03-08] MEDS: Spironolactone 100 MG TAB PO SCH (09:07)
[2021-03-08] MEDS: Folic Acid 1 MG TAB PO SCH (09:07)
[2021-03-08] MEDS: Torsemide 20 MG TAB PO SCH (09:07)
[2021-03-08] MEDS: predniSONE 20 MG TAB PO SCH (17:28)
[2021-03-08] MEDS: Doxycycline 100 MG CAP PO SCH (20:12)
[2021-03-08] MEDS: Famotidine 20 MG TAB PO SCH (20:12)
[2021-03-09 06:58] LABS: Anion Gap 13 mmol/L (10-20); BUN (Urea Nitrogen) 19 mg/dL (8.4-25.7); Calc. Creatinine Clearance 123 mL/min (70-130); Calcium 9.6 mg/dL (7.8-10.44); Carbon Dioxide 22 mmol/L (22-29); Chloride 103 mmol/L (98-107); Glucose 107 mg/dL (70-105); Magnesium 2.1 mg/dL (1.6-2.6); Potassium 4.7 mmol/L (3.5-5.1); Sodium 133 mmol/L (136-145)
[2021-03-09] MEDS: Mometasone 200 MCG/Formoterol 5 MCG 120 PUFF INHALER INH SCH (07:07)
[2021-03-09 07:35] VITALS: BP 143/94; TEMP 97.9
[2021-03-09] MEDS: Nadolol 40 MG TAB PO SCH (08:16)
[2021-03-09] MEDS: Torsemide 20 MG TAB PO SCH (08:16)
[2021-03-09] MEDS: Spironolactone 100 MG TAB PO SCH (08:16)
[2021-03-09] MEDS: Doxycycline 100 MG CAP PO SCH (08:16)
[2021-03-09] MEDS: Famotidine 20 MG TAB PO SCH (08:16)
[2021-03-09] MEDS: Folic Acid 1 MG TAB PO SCH (08:16)
[2021-03-09] MEDS: predniSONE 20 MG TAB PO SCH (08:16)
[2021-03-09] MEDS: Thiamine 100 MG TAB PO SCH (08:16)
[2021-03-09] MEDS: Amlodipine 5 MG TAB PO SCH (08:17)
[2021-03-09] MEDS ORDERED: Multivit, Therapeutic 1 TAB PO SCH (09:00)
== END 2021-03-09 11:42 | disposition home or self-care (01) | DRG 644 ==
LOC: ERS 17:10 → ERHOLD 20:46 → OBSVTOIN 03-07 10:47 → T4-A 03-07 15:57
PROVIDERS: ADMIT Internal Medicine; ATTEND Internal Medicine
DX: E22.2 Syndrome of inappropriate secretion of antidiuretic hormone (principal); J44.1 Chronic obstructive pulmonary disease with (acute) exacerbation; K70.31 Alcoholic cirrhosis of liver with ascites; F10.20 Alcohol dependence, uncomplicated; K21.9 Gastro-esophageal reflux disease without esophagitis; D53.9 Nutritional anemia, unspecified; I12.9 Hypertensive chronic kidney disease with stage 1 through stage 4 chronic kidney disease, or unspecified chronic kidney disease; N18.2 Chronic kidney disease, stage 2 (mild); Z20.822 Contact with and (suspected) exposure to COVID-19; Z88.1 Allergy status to other antibiotic agents; Z88.8 Allergy status to other drugs, medicaments and biological substances; Z79.899 Other long term (current) drug therapy; Z79.51 Long term (current) use of inhaled steroids
CPT/HCPCS: 36415; 71045; 80048; 80053; 83735; 85025; 85610; 85730; 93005; 94640; J1940; J2920; J2930; J3475; J7512; J7620; U0002

== ENCOUNTER 2021-03-18 12:19 | Inpatient (IN) | payer SELFPAY ==
[2021-03-18] MEDS ORDERED: methylPREDNISolone Sod Succ/PF 125 MG/2 ML VIAL ONE (13:08)
[2021-03-18] MEDS ORDERED: Azithromycin 500 MG VIAL ONE (13:08)
[2021-03-18 13:51] LABS: Bilirubin Negative (Negative); Blood, Urine Negative (Negative); Clarity Clear (Clear); Glucose, Urine (Dipstick) Normal (Negative); Ketone, Urine Negative (Negative); Leukocyte Negative Leu/uL (Negative); Nitrite Negative (Negative); Protein, Urine (Dipstick) Negative (Neg-Trace); Specific Gravity, Urine 1.009 (1.002-1.036); Urobilinogen Normal mg/dL (Less than 2)
[2021-03-18 14:08] LABS: Hemoglobin 14.7 g/dL (14.0-18.0); Mean Corpuscular Hemoglobin 33.7 pg (27.0-31.0); Mean Corpuscular Volume 96.3 fL (78.0-98.0); Mean Platelet Volume 6.8 fL (7.4-10.4); Platelet Count 256 thou/uL (130-400); RBC Distribution Width 12.9 % (11.5-14.5); Red Blood Cell (RBC) Count 4.35 mill/uL (4.70-6.10); White Blood Cell (WBC) Count 10.5 thou/uL (4.8-10.8)
[2021-03-18 14:24] LABS: ALT (SGPT) 28 U/L (8-55); AST (SGOT) 35 U/L (5-34); Albumin 3.5 g/dL (3.5-5.0); Alkaline Phosphatase 141 U/L (40-110); Anion Gap 14 mmol/L (10-20); BUN (Urea Nitrogen) 5 mg/dL (8.4-25.7); Bilirubin, Total 0.9 mg/dL (0.2-1.2); Calc. Creatinine Clearance 0 mL/min (70-130); Calcium 9.2 mg/dL (7.8-10.44); Carbon Dioxide 20 mmol/L (22-29); Chloride 89 mmol/L (98-107); Globulin 3.8 g/dL (2.4-3.5); Glucose 92 mg/dL (70-105); Magnesium 1.7 mg/dL (1.6-2.6); Potassium 5.3 mmol/L (3.5-5.1); Protein, Total 7.3 g/dL (6.0-8.3)
[2021-03-18 14:27] LABS: Band 10 % (5-11); Eosinophils 1 % (0-10); Lymphocytes 9 % (21-51); MDiff Complete? YES; Monocytes 5 % (0-10); Neutrophil 67 % (42-75); Platelet Morphology Comment Appears Adequate; RBC Morphology Normal; Reactive Lymphocytes 6 % (0-10)
[2021-03-18 14:33] LABS: Sodium 118 mmol/L (136-145)
[2021-03-18 15:44] LABS: Anion Gap 13 mmol/L (10-20); BUN (Urea Nitrogen) 5 mg/dL (8.4-25.7); Calc. Creatinine Clearance 0 mL/min (70-130); Calcium 9.3 mg/dL (7.8-10.44); Carbon Dioxide 22 mmol/L (22-29); Chloride 90 mmol/L (98-107); Glucose 100 mg/dL (70-105); Potassium 5.4 mmol/L (3.5-5.1); Sodium 120 mmol/L (136-145)
[2021-03-18 17:55] LABS: Troponin I 0.026 ng/mL (< 0.028)
[2021-03-18 18:13] LABS: SARS-CoV-2 NAA Rapid Test Not Detected (NotDetected)
[2021-03-18 20:30] LABS: Troponin I Less than 0.010 ng/mL (< 0.028)
[2021-03-18] MEDS ORDERED: Ondansetron ODT 4 MG TAB SL PRN (21:00)
[2021-03-18] MEDS ORDERED: Ondansetron PF 4 MG/2 ML Vial IVP PRN (21:00)
[2021-03-18] MEDS ORDERED: Acetaminophen 325 MG TAB PO PRN (21:00)
[2021-03-18 22:56] VITALS: BMI 27.2
[2021-03-19] MEDS ORDERED: hydrALAZINE 20 MG/ML VIAL SLOW IVP PRN (04:10)
[2021-03-19] MEDS ORDERED: Ondansetron ODT 4 MG TAB PO PRN (04:10)
[2021-03-19] MEDS ORDERED: Benzonatate 100 MG CAP PO PRN (04:10)
[2021-03-19] MEDS ORDERED: Ondansetron PF 4 MG/2 ML Vial IVP PRN (04:10)
[2021-03-19] MEDS ORDERED: Acetaminophen 500 MG TAB PO PRN (04:10)
[2021-03-19] MEDS ORDERED: Famotidine 20 MG TAB PO SCH (04:15)
[2021-03-19] MEDS ORDERED: cloNIDine 0.2 MG TAB PO SCH (04:15)
[2021-03-19] MEDS ORDERED: methylPREDNISolone Sod Succ 40 MG VIAL IVP SCH (04:30)
[2021-03-19] MEDS ORDERED: guaiFENesin/DM ER PO SCH (08:45)
[2021-03-19] MEDS ORDERED: Furosemide 40 MG/4 ML VIAL SLOW IVP SCH (09:00)
[2021-03-19] MEDS: Thiamine 100 MG TAB PO SCH (09:03)
[2021-03-19] MEDS: Multivit, Therapeutic 1 TAB PO SCH (09:03)
[2021-03-19] MEDS: Amlodipine 5 MG TAB PO SCH (09:03)
[2021-03-19] MEDS: guaiFENesin/DM ER PO SCH ×2 (09:04→20:50)
[2021-03-19] MEDS: methylPREDNISolone Sod Succ 40 MG VIAL IVP SCH ×2 (11:50→19:11)
[2021-03-19 12:53] LABS: Anion Gap 12 mmol/L (10-20); BUN (Urea Nitrogen) 10 mg/dL (8.4-25.7); Calc. Creatinine Clearance 138 mL/min (70-130); Calcium 9.5 mg/dL (7.8-10.44); Carbon Dioxide 24 mmol/L (22-29); Chloride 97 mmol/L (98-107); Glucose 143 mg/dL (70-105); Potassium 4.3 mmol/L (3.5-5.1); Sodium 129 mmol/L (136-145)
[2021-03-19] MEDS: Mometasone 200 MCG/Formoterol 5 MCG 120 PUFF INHALER INH SCH (18:33)
[2021-03-19] MEDS: cloNIDine 0.2 MG TAB PO SCH (20:50)
[2021-03-19] MEDS: Famotidine 20 MG TAB PO SCH (20:50)
[2021-03-20] MEDS: methylPREDNISolone Sod Succ 40 MG VIAL IVP SCH ×4 (01:15→18:11)
[2021-03-20 05:09] LABS: #Lymphocytes 0.7 thou/uL (1.20-3.40); #Monocytes 0.3 thou/uL (0.11-0.59); #Neutrophils 11.5 thou/uL (1.40-6.50); %Eosinophils 0.1 % (0.0-10.0); %Lymphocytes 5.8 % (21.0-51.0); %Monocytes 2.5 % (0.0-10.0); %Neutrophils 91.7 % (42.0-75.0); Hemoglobin 13.1 g/dL (14.0-18.0); Mean Corpuscular HGB CONC 33.8 g/dL (32.0-36.0); Mean Corpuscular Hemoglobin 33.6 pg (27.0-31.0); Mean Corpuscular Volume 99.3 fL (78.0-98.0); Mean Platelet Volume 6.8 fL (7.4-10.4); Platelet Count 250 thou/uL (130-400); RBC Distribution Width 13.1 % (11.5-14.5); White Blood Cell (WBC) Count 12.5 thou/uL (4.8-10.8)
[2021-03-20 05:36] LABS: ALT (SGPT) 23 U/L (8-55); AST (SGOT) 23 U/L (5-34); Albumin 3.3 g/dL (3.5-5.0); Alkaline Phosphatase 114 U/L (40-110); Anion Gap 11 mmol/L (10-20); BUN (Urea Nitrogen) 13 mg/dL (8.4-25.7); Bilirubin, Total 0.3 mg/dL (0.2-1.2); Calc. Creatinine Clearance 137 mL/min (70-130); Calcium 9.4 mg/dL (7.8-10.44); Carbon Dioxide 24 mmol/L (22-29); Chloride 98 mmol/L (98-107); Globulin 3.6 g/dL (2.4-3.5); Glucose 199 mg/dL (70-105); Potassium 4.3 mmol/L (3.5-5.1); Protein, Total 6.9 g/dL (6.0-8.3); Sodium 129 mmol/L (136-145)
[2021-03-20] MEDS: Mometasone 200 MCG/Formoterol 5 MCG 120 PUFF INHALER INH SCH ×2 (07:02→19:23)
[2021-03-20] MEDS: Furosemide 20 MG TAB PO SCH (09:30)
[2021-03-20] MEDS: Multivit, Therapeutic 1 TAB PO SCH (09:30)
[2021-03-20] MEDS: Amlodipine 5 MG TAB PO SCH (09:30)
[2021-03-20] MEDS: Famotidine 20 MG TAB PO SCH ×2 (09:30→20:59)
[2021-03-20] MEDS: guaiFENesin/DM ER PO SCH ×2 (09:30→20:59)
[2021-03-20] MEDS: cloNIDine 0.2 MG TAB PO SCH ×2 (09:30→20:58)
[2021-03-20] MEDS: Thiamine 100 MG TAB PO SCH (09:31)
[2021-03-20] MEDS: Nadolol 40 MG TAB PO SCH (09:31)
[2021-03-21] MEDS: methylPREDNISolone Sod Succ 40 MG VIAL IVP SCH ×3 (00:34→11:31)
[2021-03-21 06:08] LABS: Anion Gap 12 mmol/L (10-20); BUN (Urea Nitrogen) 15 mg/dL (8.4-25.7); Calc. Creatinine Clearance 138 mL/min (70-130); Calcium 9.7 mg/dL (7.8-10.44); Carbon Dioxide 27 mmol/L (22-29); Chloride 98 mmol/L (98-107); Glucose 123 mg/dL (70-105); Potassium 4.5 mmol/L (3.5-5.1); Sodium 132 mmol/L (136-145)
[2021-03-21] MEDS: Mometasone 200 MCG/Formoterol 5 MCG 120 PUFF INHALER INH SCH (07:03)
[2021-03-21] MEDS: Amlodipine 5 MG TAB PO SCH (09:12)
[2021-03-21] MEDS: Thiamine 100 MG TAB PO SCH (09:12)
[2021-03-21] MEDS: Nadolol 40 MG TAB PO SCH (09:12)
[2021-03-21] MEDS: Famotidine 20 MG TAB PO SCH (09:12)
[2021-03-21] MEDS: guaiFENesin/DM ER PO SCH (09:12)
[2021-03-21] MEDS: Multivit, Therapeutic 1 TAB PO SCH (09:12)
[2021-03-21] MEDS: cloNIDine 0.2 MG TAB PO SCH (09:12)
[2021-03-21] MEDS: Furosemide 20 MG TAB PO SCH (09:12)
[2021-03-21 11:33] VITALS: BP 128/68; TEMP 97.8
== END 2021-03-21 14:35 | disposition home or self-care (01) | DRG 643 ==
LOC: ERS 12:19 → 2NO 16:44 → OBSVTOIN 03-19 04:10
PROVIDERS: ADMIT Family Medicine; ATTEND Family Medicine
DX: E22.2 Syndrome of inappropriate secretion of antidiuretic hormone (principal); J96.21 Acute and chronic respiratory failure with hypoxia; J44.1 Chronic obstructive pulmonary disease with (acute) exacerbation; I10 Essential (primary) hypertension; E87.5 Hyperkalemia; E87.70 Fluid overload, unspecified; K70.31 Alcoholic cirrhosis of liver with ascites; Z98.890 Other specified postprocedural states; Z88.1 Allergy status to other antibiotic agents; Z88.6 Allergy status to analgesic agent; Z87.891 Personal history of nicotine dependence; Z79.51 Long term (current) use of inhaled steroids; Z79.52 Long term (current) use of systemic steroids; Z79.899 Other long term (current) drug therapy
CPT/HCPCS: 36415; 71045; 80048; 80053; 81003; 82140; 83735; 83880; 84484; 85025; 93005; 94640; 96365; 96372; G0378; J0456; J1940; J2920; J2930; J7620; U0002

== ENCOUNTER 2021-03-22 07:46 | Inpatient (IN) | payer SELFPAY ==
[2021-03-22 08:40] LABS: Actual Bicarbonate (HCO3a) 25.7 mEq/L (22-28); Analyzer IN Cardio ER; Base Excess (BEa) 0.9 mEq/L (-2.0 to +3.0); CO2 Tension 41.8 mmHg (35.0-45.0); Calcium, Ionized (arterial) 1.19 mmol/L (1.12-1.30); Carboxyhemoglobin (COHb) 0.7 gm% (0.0-3.0); Hemoglobin (Hb) 14.5 g/dL (14.0-18.0); O2 Tension (PaO2), arterial 98.9 mmHg (80.0-100.0); Potassium - ABG Lab 4.22 mmol/L (3.70-5.30); pH, Arterial 7.41 (7.35-7.45)
[2021-03-22 08:42] LABS: #Lymphocytes 1.2 thou/uL (1.20-3.40); #Monocytes 1.9 thou/uL (0.11-0.59); #Neutrophils 15.4 thou/uL (1.40-6.50); %Basophils 0.1 % (0.0-1.0); %Eosinophils 0.2 % (0.0-10.0); %Lymphocytes 6.7 % (21.0-51.0); %Neutrophils 83.1 % (42.0-75.0); Hemoglobin 14.9 g/dL (14.0-18.0); Mean Corpuscular HGB CONC 32.1 g/dL (32.0-36.0); Mean Corpuscular Hemoglobin 31.9 pg (27.0-31.0); Mean Corpuscular Volume 99.3 fL (78.0-98.0); Mean Platelet Volume 7.1 fL (7.4-10.4); Platelet Count 271 thou/uL (130-400); Red Blood Cell (RBC) Count 4.66 mill/uL (4.70-6.10); White Blood Cell (WBC) Count 18.6 thou/uL (4.8-10.8)
[2021-03-22 08:44] LABS: Puncture Site LRA
[2021-03-22 09:06] LABS: ALT (SGPT) 53 U/L (8-55); AST (SGOT) 60 U/L (5-34); Albumin 3.6 g/dL (3.5-5.0); Alkaline Phosphatase 109 U/L (40-110); Anion Gap 13 mmol/L (10-20); BUN (Urea Nitrogen) 19 mg/dL (8.4-25.7); Bilirubin, Total 0.5 mg/dL (0.2-1.2); Calc. Creatinine Clearance 0 mL/min (70-130); Calcium 9.6 mg/dL (7.8-10.44); Carbon Dioxide 26 mmol/L (22-29); Chloride 95 mmol/L (98-107); Globulin 3.7 g/dL (2.4-3.5); Glucose 95 mg/dL (70-105); Potassium 4.6 mmol/L (3.5-5.1); Protein, Total 7.3 g/dL (6.0-8.3); Sodium 129 mmol/L (136-145)
[2021-03-22] MEDS ORDERED: Clopidogrel Bisulfate 75 MG TAB ONE (10:19)
[2021-03-22] MEDS ORDERED: Acetaminophen 500 MG TAB PO PRN (12:15)
[2021-03-22] MEDS ORDERED: Furosemide 40 MG/4 ML VIAL SLOW IVP SCH (12:15)
[2021-03-22] MEDS ORDERED: Ondansetron ODT 4 MG TAB PO PRN (12:15)
[2021-03-22] MEDS ORDERED: Benzonatate 100 MG CAP PO PRN (12:15)
[2021-03-22] MEDS ORDERED: Ondansetron PF 4 MG/2 ML Vial IVP PRN (12:15)
[2021-03-22] MEDS ORDERED: hydrALAZINE 20 MG/ML VIAL SLOW IVP PRN (12:15)
[2021-03-22] MEDS ORDERED: methylPREDNISolone Sod Succ 40 MG VIAL IVP SCH (12:30)
[2021-03-22 12:58] LABS: Troponin I 0.032 ng/mL (< 0.028)
[2021-03-22] MEDS ORDERED: methylPREDNISolone Sod Succ 40 MG VIAL ONE (14:27)
[2021-03-22] MEDS ORDERED: Furosemide 40 MG/4 ML VIAL ONE (14:27)
[2021-03-22 16:14] LABS: Troponin I 0.028 ng/mL (< 0.028)
[2021-03-22 17:22] VITALS: BMI 27.1
[2021-03-22] MEDS: methylPREDNISolone Sod Succ 40 MG VIAL IVP SCH (18:15)
[2021-03-22] MEDS: Furosemide 40 MG/4 ML VIAL SLOW IVP SCH (18:15)
[2021-03-22] MEDS: guaiFENesin/DM ER PO SCH (21:52)
[2021-03-22] MEDS: Famotidine 20 MG TAB PO SCH (21:52)
[2021-03-22] MEDS: Mometasone 200 MCG/Formoterol 5 MCG 120 PUFF INHALER INH SCH (23:09)
[2021-03-23] MEDS: methylPREDNISolone Sod Succ 40 MG VIAL IVP SCH ×5 (00:44→20:13)
[2021-03-23 05:21] LABS: #Lymphocytes 0.7 thou/uL (1.20-3.40); #Monocytes 1.1 thou/uL (0.11-0.59); #Neutrophils 8.1 thou/uL (1.40-6.50); %Eosinophils 0.1 % (0.0-10.0); %Lymphocytes 7.3 % (21.0-51.0); %Monocytes 11.4 % (0.0-10.0); %Neutrophils 81.2 % (42.0-75.0); Hemoglobin 13.8 g/dL (14.0-18.0); Mean Corpuscular HGB CONC 34.3 g/dL (32.0-36.0); Mean Corpuscular Volume 99.2 fL (78.0-98.0); Platelet Count 233 thou/uL (130-400); Red Blood Cell (RBC) Count 4.05 mill/uL (4.70-6.10)
[2021-03-23 05:40] LABS: ALT (SGPT) 44 U/L (8-55); AST (SGOT) 41 U/L (5-34); Albumin 3.2 g/dL (3.5-5.0); Alkaline Phosphatase 94 U/L (40-110); Anion Gap 9 mmol/L (10-20); BUN (Urea Nitrogen) 25 mg/dL (8.4-25.7); Bilirubin, Total 0.3 mg/dL (0.2-1.2); Calc. Creatinine Clearance 140 mL/min (70-130); Calcium 9.2 mg/dL (7.8-10.44); Carbon Dioxide 30 mmol/L (22-29); Chloride 95 mmol/L (98-107); Globulin 3.5 g/dL (2.4-3.5); Glucose 154 mg/dL (70-105); Potassium 3.8 mmol/L (3.5-5.1); Protein, Total 6.7 g/dL (6.0-8.3); Sodium 130 mmol/L (136-145)
[2021-03-23] MEDS: Furosemide 40 MG/4 ML VIAL SLOW IVP SCH ×2 (07:09→14:37)
[2021-03-23] MEDS: Mometasone 200 MCG/Formoterol 5 MCG 120 PUFF INHALER INH SCH ×2 (07:39→19:08)
[2021-03-23] MEDS: Famotidine 20 MG TAB PO SCH ×2 (09:16→20:13)
[2021-03-23] MEDS: guaiFENesin/DM ER PO SCH ×2 (09:16→20:13)
[2021-03-23] MEDS: Amlodipine 5 MG TAB PO SCH (09:16)
[2021-03-23] MEDS: Nadolol 40 MG TAB PO SCH (09:17)
[2021-03-24 04:49] LABS: #Lymphocytes 0.7 thou/uL (1.20-3.40); #Monocytes 0.7 thou/uL (0.11-0.59); %Basophils 0.1 % (0.0-1.0); %Eosinophils 0.1 % (0.0-10.0); %Lymphocytes 6.3 % (21.0-51.0); %Monocytes 5.9 % (0.0-10.0); %Neutrophils 87.6 % (42.0-75.0); Hemoglobin 14.7 g/dL (14.0-18.0); Mean Corpuscular HGB CONC 33.4 g/dL (32.0-36.0); Mean Corpuscular Hemoglobin 33.2 pg (27.0-31.0); Mean Corpuscular Volume 99.4 fL (78.0-98.0); Mean Platelet Volume 7.4 fL (7.4-10.4); Platelet Count 241 thou/uL (130-400); RBC Distribution Width 12.9 % (11.5-14.5); Red Blood Cell (RBC) Count 4.44 mill/uL (4.70-6.10); White Blood Cell (WBC) Count 11.4 thou/uL (4.8-10.8)
[2021-03-24 05:23] LABS: ALT (SGPT) 61 U/L (8-55); AST (SGOT) 61 U/L (5-34); Albumin 3.2 g/dL (3.5-5.0); Alkaline Phosphatase 102 U/L (40-110); Anion Gap 12 mmol/L (10-20); BUN (Urea Nitrogen) 24 mg/dL (8.4-25.7); Bilirubin, Total 0.3 mg/dL (0.2-1.2); Calc. Creatinine Clearance 124 mL/min (70-130); Calcium 9.8 mg/dL (7.8-10.44); Carbon Dioxide 31 mmol/L (22-29); Chloride 98 mmol/L (98-107); Globulin 4.1 g/dL (2.4-3.5); Glucose 196 mg/dL (70-105); Protein, Total 7.3 g/dL (6.0-8.3); Sodium 137 mmol/L (136-145)
[2021-03-24] MEDS: methylPREDNISolone Sod Succ 40 MG VIAL IVP SCH ×3 (06:39→15:01)
[2021-03-24] MEDS: Furosemide 40 MG/4 ML VIAL SLOW IVP SCH ×2 (06:39→13:11)
[2021-03-24] MEDS: Mometasone 200 MCG/Formoterol 5 MCG 120 PUFF INHALER INH SCH ×2 (07:05→19:21)
[2021-03-24] MEDS: Amlodipine 5 MG TAB PO SCH (08:20)
[2021-03-24] MEDS: guaiFENesin/DM ER PO SCH ×2 (08:21→20:47)
[2021-03-24] MEDS: Famotidine 20 MG TAB PO SCH ×2 (08:21→20:42)
[2021-03-24] MEDS: Nadolol 40 MG TAB PO SCH (08:22)
[2021-03-25] MEDS: Mometasone 200 MCG/Formoterol 5 MCG 120 PUFF INHALER INH SCH ×2 (06:59→18:34)
[2021-03-25] MEDS: predniSONE 20 MG TAB PO SCH (08:49)
[2021-03-25] MEDS: Spironolactone 100 MG TAB PO SCH (08:49)
[2021-03-25] MEDS: Amlodipine 5 MG TAB PO SCH (08:50)
[2021-03-25] MEDS: Nadolol 40 MG TAB PO SCH (08:51)
[2021-03-25] MEDS: Torsemide 20 MG TAB PO SCH (08:51)
[2021-03-25] MEDS: Famotidine 20 MG TAB PO SCH ×2 (08:51→20:45)
[2021-03-25] MEDS: guaiFENesin/DM ER PO SCH ×2 (08:52→20:46)
[2021-03-25 17:04] LABS: Anion Gap 12 mmol/L (10-20); BUN (Urea Nitrogen) 25 mg/dL (8.4-25.7); Calc. Creatinine Clearance 121 mL/min (70-130); Calcium 9.5 mg/dL (7.8-10.44); Carbon Dioxide 35 mmol/L (22-29); Chloride 96 mmol/L (98-107); Glucose 135 mg/dL (70-105); Potassium 3.5 mmol/L (3.5-5.1); Sodium 139 mmol/L (136-145)
[2021-03-25] MEDS: cloNIDine 0.2 MG TAB PO SCH (20:45)
[2021-03-26 05:20] LABS: Anion Gap 7 mmol/L (10-20); BUN (Urea Nitrogen) 25 mg/dL (8.4-25.7); Calc. Creatinine Clearance 144 mL/min (70-130); Calcium 9.3 mg/dL (7.8-10.44); Carbon Dioxide 35 mmol/L (22-29); Chloride 98 mmol/L (98-107); Glucose 86 mg/dL (70-105); Potassium 3.4 mmol/L (3.5-5.1); Sodium 137 mmol/L (136-145)
[2021-03-26] MEDS: Mometasone 200 MCG/Formoterol 5 MCG 120 PUFF INHALER INH SCH ×2 (07:59→18:30)
[2021-03-26] MEDS ORDERED: Potassium Chloride 20 MEQ TAB PO SCH (08:30)
[2021-03-26] MEDS: predniSONE 20 MG TAB PO SCH ×3 (08:32→20:15)
[2021-03-26] MEDS: guaiFENesin/DM ER PO SCH ×2 (08:33→20:15)
[2021-03-26] MEDS: Spironolactone 100 MG TAB PO SCH (08:33)
[2021-03-26] MEDS: Nadolol 40 MG TAB PO SCH (08:33)
[2021-03-26] MEDS: Amlodipine 5 MG TAB PO SCH (08:33)
[2021-03-26] MEDS: Famotidine 20 MG TAB PO SCH ×2 (08:33→20:15)
[2021-03-26] MEDS: Torsemide 20 MG TAB PO SCH (08:33)
[2021-03-26] MEDS: cloNIDine 0.2 MG TAB PO SCH ×2 (08:33→20:15)
[2021-03-26] MEDS ORDERED: Enoxaparin Sodium 40 MG/0.4 ML SYRINGE SC SCH (13:45)
[2021-03-27] MEDS: Mometasone 200 MCG/Formoterol 5 MCG 120 PUFF INHALER INH SCH ×2 (07:52→18:13)
[2021-03-27] MEDS: Enoxaparin Sodium 40 MG/0.4 ML SYRINGE SC SCH (09:24)
[2021-03-27] MEDS: Spironolactone 100 MG TAB PO SCH (09:24)
[2021-03-27] MEDS: Amlodipine 5 MG TAB PO SCH (09:24)
[2021-03-27] MEDS: Famotidine 20 MG TAB PO SCH ×2 (09:24→20:20)
[2021-03-27] MEDS: predniSONE 20 MG TAB PO SCH ×3 (09:24→20:20)
[2021-03-27] MEDS: Nadolol 40 MG TAB PO SCH (09:24)
[2021-03-27] MEDS: cloNIDine 0.2 MG TAB PO SCH ×2 (09:24→20:19)
[2021-03-27] MEDS: guaiFENesin/DM ER PO SCH ×2 (09:25→20:20)
[2021-03-27] MEDS: Torsemide 20 MG TAB PO SCH (09:25)
[2021-03-27 15:45] LABS: SARS-CoV-2 PCR by NAA Not Detected (NotDetected)
[2021-03-28] MEDS: Mometasone 200 MCG/Formoterol 5 MCG 120 PUFF INHALER INH SCH (08:02)
[2021-03-28] MEDS: Enoxaparin Sodium 40 MG/0.4 ML SYRINGE SC SCH (08:24)
[2021-03-28] MEDS: predniSONE 20 MG TAB PO SCH ×3 (08:24→21:55)
[2021-03-28] MEDS: Torsemide 20 MG TAB PO SCH (08:25)
[2021-03-28] MEDS: Famotidine 20 MG TAB PO SCH ×2 (08:25→21:54)
[2021-03-28] MEDS: Spironolactone 100 MG TAB PO SCH (08:25)
[2021-03-28] MEDS: Nadolol 40 MG TAB PO SCH (08:25)
[2021-03-28] MEDS: guaiFENesin/DM ER PO SCH ×2 (08:25→21:59)
[2021-03-28] MEDS: Amlodipine 5 MG TAB PO SCH (08:25)
[2021-03-28] MEDS: cloNIDine 0.2 MG TAB PO SCH ×2 (08:36→21:53)
[2021-03-28 11:05] LABS: #Eosinphils 0.1 thou/uL (0.0-0.7); #Lymphocytes 1.7 thou/uL (1.20-3.40); #Monocytes 1.4 thou/uL (0.11-0.59); #Neutrophils 15.3 thou/uL (1.40-6.50); %Basophils 0.1 % (0.0-1.0); %Eosinophils 0.3 % (0.0-10.0); %Lymphocytes 9.3 % (21.0-51.0); %Monocytes 7.4 % (0.0-10.0); %Neutrophils 82.9 % (42.0-75.0); Hemoglobin 14.3 g/dL (14.0-18.0); Mean Corpuscular HGB CONC 32.7 g/dL (32.0-36.0); Mean Corpuscular Hemoglobin 32.5 pg (27.0-31.0); Mean Corpuscular Volume 99.5 fL (78.0-98.0); Platelet Count 260 thou/uL (130-400); RBC Distribution Width 12.9 % (11.5-14.5); Red Blood Cell (RBC) Count 4.39 mill/uL (4.70-6.10); White Blood Cell (WBC) Count 18.5 thou/uL (4.8-10.8)
[2021-03-28 11:19] LABS: Anion Gap 9 mmol/L (10-20); BUN (Urea Nitrogen) 22 mg/dL (8.4-25.7); Calc. Creatinine Clearance 134 mL/min (70-130); Calcium 9.4 mg/dL (7.8-10.44); Carbon Dioxide 32 mmol/L (22-29); Chloride 103 mmol/L (98-107); Glucose 131 mg/dL (70-105); Potassium 3.5 mmol/L (3.5-5.1); Sodium 140 mmol/L (136-145)
[2021-03-28] MEDS: Arformoterol 15 MCG/2 ML NEB NEB SCH (18:08)
[2021-03-28] MEDS: Budesonide 0.5 MG/2 ML NEB NEB SCH (18:08)
[2021-03-28] MEDS: Montelukast Sodium 10 mg Tablet PO SCH (21:54)
[2021-03-29] MEDS: Budesonide 0.5 MG/2 ML NEB NEB SCH ×2 (08:17→19:02)
[2021-03-29] MEDS: Arformoterol 15 MCG/2 ML NEB NEB SCH ×2 (08:17→19:01)
[2021-03-29] MEDS: cloNIDine 0.2 MG TAB PO SCH ×2 (10:56→20:29)
[2021-03-29] MEDS: Spironolactone 100 MG TAB PO SCH (10:56)
[2021-03-29] MEDS: Nadolol 40 MG TAB PO SCH (10:56)
[2021-03-29] MEDS: predniSONE 20 MG TAB PO SCH ×3 (10:57→20:29)
[2021-03-29] MEDS: Torsemide 20 MG TAB PO SCH (10:57)
[2021-03-29] MEDS: Amlodipine 5 MG TAB PO SCH (10:57)
[2021-03-29] MEDS: Enoxaparin Sodium 40 MG/0.4 ML SYRINGE SC SCH (10:57)
[2021-03-29] MEDS: guaiFENesin/DM ER PO SCH ×2 (10:57→20:30)
[2021-03-29] MEDS: Famotidine 20 MG TAB PO SCH ×2 (10:57→20:29)
[2021-03-29] MEDS: Montelukast Sodium 10 mg Tablet PO SCH (20:29)
[2021-03-30] MEDS: Arformoterol 15 MCG/2 ML NEB NEB SCH (06:34)
[2021-03-30] MEDS: Budesonide 0.5 MG/2 ML NEB NEB SCH (06:37)
[2021-03-30 07:38] VITALS: BP 157/77; TEMP 97.5
[2021-03-30] MEDS: predniSONE 20 MG TAB PO SCH (07:43)
[2021-03-30] MEDS: cloNIDine 0.2 MG TAB PO SCH (07:43)
[2021-03-30] MEDS: Torsemide 20 MG TAB PO SCH (07:43)
[2021-03-30] MEDS: Spironolactone 100 MG TAB PO SCH (07:43)
[2021-03-30] MEDS: guaiFENesin/DM ER PO SCH (07:44)
[2021-03-30] MEDS: Amlodipine 5 MG TAB PO SCH (07:44)
[2021-03-30] MEDS: Famotidine 20 MG TAB PO SCH (07:44)
[2021-03-30] MEDS: Nadolol 40 MG TAB PO SCH (07:46)
[2021-03-30] MEDS: Enoxaparin Sodium 40 MG/0.4 ML SYRINGE SC SCH (07:47)
[2021-03-30 14:56] LABS: Reference Lab Name LABCORP
[2021-03-30 14:57] LABS: Ref Lab Test Ordered RESP PROFILE
== END 2021-03-30 10:14 | disposition home or self-care (01) | DRG 291 ==
LOC: ERS 07:46 → ERHOLD 11:38 → 2SW 17:30 → OBSVTOIN 03-23 10:18
PROVIDERS: ADMIT Family Medicine; ATTEND Internal Medicine
DX: I11.0 Hypertensive heart disease with heart failure (principal); J96.21 Acute and chronic respiratory failure with hypoxia; I50.33 Acute on chronic diastolic (congestive) heart failure; J44.1 Chronic obstructive pulmonary disease with (acute) exacerbation; E87.1 Hypo-osmolality and hyponatremia; K70.30 Alcoholic cirrhosis of liver without ascites; Z20.822 Contact with and (suspected) exposure to COVID-19; Z98.890 Other specified postprocedural states; Z79.51 Long term (current) use of inhaled steroids; Z79.899 Other long term (current) drug therapy; Z88.1 Allergy status to other antibiotic agents; Z88.8 Allergy status to other drugs, medicaments and biological substances; Z87.891 Personal history of nicotine dependence
CPT/HCPCS: 36415; 36600; 71045; 71046; 76700; 80048; 80053; 82805; 83880; 84484; 85025; 87040; 87633; 93005; 94640; 94660; J1650; J1940; J1956; J2920; J7512; J7620; J7626; U0003; U0005

== ENCOUNTER 2021-03-31 21:02 | Emergency (ER) | payer SELFPAY ==
[2021-03-31] MEDS ORDERED: Orphenadrine Citrate 60 MG/2 ML VIAL IM SCH (22:15)
== END 2021-03-31 22:54 | disposition home or self-care (01) ==
LOC: ERS 21:02
DX: M54.50 Low back pain, unspecified (principal); I10 Essential (primary) hypertension; J45.909 Unspecified asthma, uncomplicated; Z87.891 Personal history of nicotine dependence; Z79.899 Other long term (current) drug therapy
CPT/HCPCS: 71045; 93005; 94640; 96372; J2360; J7620

== ENCOUNTER 2021-04-01 16:55 | Emergency (ER) | payer SELFPAY ==
[2021-04-01] MEDS ORDERED: Ketorolac Tromethamine 30 MG/ML VIAL ONE (17:38)
[2021-04-01] MEDS ORDERED: Orphenadrine Citrate 60 MG/2 ML VIAL IM SCH (18:00)
== END 2021-04-01 18:35 | disposition home or self-care (01) ==
LOC: ERS 16:55
DX: M54.41 Lumbago with sciatica, right side (principal); M54.42 Lumbago with sciatica, left side; I10 Essential (primary) hypertension; J44.9 Chronic obstructive pulmonary disease, unspecified; Z87.891 Personal history of nicotine dependence; Z79.52 Long term (current) use of systemic steroids; Z79.899 Other long term (current) drug therapy
CPT/HCPCS: 96372; 99282; J1885; J2360

== ENCOUNTER 2021-04-14 18:08 | Emergency (ER) | payer SELFPAY ==
[2021-04-14] MEDS ORDERED: methylPREDNISolone Sod Succ/PF 125 MG/2 ML VIAL ONE (19:18)
[2021-04-14] MEDS ORDERED: Albuterol 200 PUFF (6.7GM INHALER) ONE (19:53)
[2021-04-14 19:58] LABS: #Lymphocytes 1.9 thou/uL (1.20-3.40); #Monocytes 1.2 thou/uL (0.11-0.59); #Neutrophils 12.2 thou/uL (1.40-6.50); %Basophils 0.1 % (0.0-1.0); %Eosinophils 0.2 % (0.0-10.0); %Lymphocytes 12.2 % (21.0-51.0); %Monocytes 7.7 % (0.0-10.0); %Neutrophils 79.9 % (42.0-75.0); Hemoglobin 12.9 g/dL (14.0-18.0); Mean Corpuscular HGB CONC 35.2 g/dL (32.0-36.0); Mean Corpuscular Volume 96.5 fL (78.0-98.0); Mean Platelet Volume 7.1 fL (7.4-10.4); Platelet Count 142 thou/uL (130-400); RBC Distribution Width 13.5 % (11.5-14.5); White Blood Cell (WBC) Count 15.2 thou/uL (4.8-10.8)
[2021-04-14 20:41] LABS: Chloride 95 mmol/L (98-107); Potassium 4.1 mmol/L (3.5-5.1); Sodium 129 mmol/L (136-145)
[2021-04-14 20:42] LABS: Calcium 8.7 mg/dL (7.8-10.44); Glucose 75 mg/dL (70-105)
[2021-04-14 20:43] LABS: Globulin 3.9 g/dL (2.4-3.5); Protein, Total 6.9 g/dL (6.0-8.3)
[2021-04-14 20:44] LABS: Anion Gap 11 mmol/L (10-20); Bilirubin, Total 0.7 mg/dL (0.2-1.2); Carbon Dioxide 27 mmol/L (22-29)
[2021-04-14 20:45] LABS: Alkaline Phosphatase 128 U/L (40-110)
[2021-04-14 20:46] LABS: Calc. Creatinine Clearance 0 mL/min (70-130)
[2021-04-14 20:47] LABS: BUN (Urea Nitrogen) 8 mg/dL (8.4-25.7)
[2021-04-14 20:48] LABS: ALT (SGPT) 85 U/L (8-55); AST (SGOT) 80 U/L (5-34)
== END 2021-04-14 23:35 | disposition home or self-care (01) ==
LOC: ERS 18:08
DX: J44.1 Chronic obstructive pulmonary disease with (acute) exacerbation (principal); I11.0 Hypertensive heart disease with heart failure; I50.9 Heart failure, unspecified; Z87.891 Personal history of nicotine dependence; Z79.899 Other long term (current) drug therapy
CPT/HCPCS: 71045; 80053; 85025; 93005; 94760; 96374; J2930

== ENCOUNTER 2021-05-30 16:13 | Inpatient (IN) | payer SELFPAY ==
[~2021-05-30 16:13] MED LIST changes: +Iopamidol 370 76% 100 ML VIAL ONE; -Iopamidol-370 76% 500 ML 1 ML ONE
[2021-05-30 16:48] LABS: #Basophils 0.1 thou/uL (0.0-0.2); #Eosinphils 0.1 thou/uL (0.0-0.7); #Lymphocytes 3.8 thou/uL (1.20-3.40); #Monocytes 0.9 thou/uL (0.11-0.59); #Neutrophils 10.9 thou/uL (1.40-6.50); %Basophils 0.6 % (0.0-1.0); %Eosinophils 0.4 % (0.0-10.0); %Lymphocytes 23.9 % (21.0-51.0); %Neutrophils 69.1 % (42.0-75.0); Hemoglobin 12.7 g/dL (14.0-18.0); Mean Corpuscular HGB CONC 32.8 g/dL (32.0-36.0); Mean Corpuscular Hemoglobin 33.2 pg (27.0-31.0); Platelet Count 368 thou/uL (130-400); RBC Distribution Width 14.1 % (11.5-14.5); Red Blood Cell (RBC) Count 3.81 mill/uL (4.70-6.10); White Blood Cell (WBC) Count 15.7 thou/uL (4.8-10.8)
[2021-05-30 17:10] LABS: ALT (SGPT) 26 U/L (8-55); AST (SGOT) 25 U/L (5-34); Albumin 3.8 g/dL (3.5-5.0); Alkaline Phosphatase 130 U/L (40-110); Anion Gap 17 mmol/L (10-20); BUN (Urea Nitrogen) 8 mg/dL (8.4-25.7); Bilirubin, Total 0.9 mg/dL (0.2-1.2); Calc. Creatinine Clearance 0 mL/min (70-130); Calcium 9.3 mg/dL (7.8-10.44); Carbon Dioxide 25 mmol/L (22-29); Chloride 96 mmol/L (98-107); Globulin 3.8 g/dL (2.4-3.5); Glucose 93 mg/dL (70-105); Potassium 3.6 mmol/L (3.5-5.1); Protein, Total 7.6 g/dL (6.0-8.3); Sodium 134 mmol/L (136-145)
[2021-05-30] MEDS ORDERED: Magnesium 2 GM/50 ML BAG (IN WATER) ONE (17:21)
[2021-05-30] MEDS ORDERED: Furosemide 40 MG/4 ML VIAL ONE (17:21)
[2021-05-30] MEDS ORDERED: predniSONE 20 MG TAB ONE (17:21)
[2021-05-30] MEDS ORDERED: Nitroglycerin 50 MG/250 ML BOT 250 ML ONE (17:21)
[2021-05-30] MEDS ORDERED: Albuterol 200 PUFF (6.7GM INHALER) ONE (17:22)
[2021-05-30 17:38] LABS: Magnesium 1.6 mg/dL (1.6-2.6)
[2021-05-30] MEDS ORDERED: Diltiazem 125 MG/25 ML ONE (17:52)
[2021-05-30 18:06] LABS: PTT 32.2 sec (22.9-36.1); Prothrombin Time 13.7 sec (12.0-14.7)
[2021-05-30] MEDS ORDERED: Heparin 25,000 units/D5W 500 ML ONE (18:19)
[2021-05-30] MEDS ORDERED: Heparin 10,000 UNITS/ 10 ML VIAL ONE (18:30)
[2021-05-30] MEDS ORDERED: Doxycycline 100 MG CAP PO SCH (19:00)
[2021-05-30 19:09] LABS: SARS-CoV-2 NAA Rapid Test Not Detected (NotDetected)
[2021-05-30] MEDS ORDERED: Heparin 10,000 UNITS/ 10 ML VIAL SLOW IVP SCH (19:45)
[2021-05-30] MEDS ORDERED: Ondansetron ODT 4 MG TAB SL PRN (19:45)
[2021-05-30] MEDS ORDERED: Heparin 25,000 units/D5W 500 ML IV SCH (19:45)
[2021-05-30] MEDS ORDERED: Acetaminophen 325 MG TAB PO PRN (19:45)
[2021-05-30] MEDS ORDERED: Ondansetron PF 4 MG/2 ML Vial IVP PRN ×2 (19:45→23:49)
[2021-05-30 20:29] LABS: Troponin I Less than 0.010 ng/mL (< 0.028)
[2021-05-30 23:45] LABS: Troponin I Less than 0.010 ng/mL (< 0.028)
[2021-05-30] MEDS ORDERED: Magnesium Oxide 400 MG TAB PO SCH (23:45)
[2021-05-31 02:06] LABS: PTT 192.2 sec (22.9-36.1)
[2021-05-31 03:58] LABS: #Lymphocytes 1.5 thou/uL (1.20-3.40); #Monocytes 0.3 thou/uL (0.11-0.59); %Basophils 0.1 % (0.0-1.0); %Eosinophils 0.5 % (0.0-10.0); %Lymphocytes 22.1 % (21.0-51.0); %Monocytes 3.9 % (0.0-10.0); %Neutrophils 73.5 % (42.0-75.0); Hemoglobin 10.8 g/dL (14.0-18.0); Mean Corpuscular HGB CONC 32.8 g/dL (32.0-36.0); Mean Corpuscular Hemoglobin 33.2 pg (27.0-31.0); Mean Platelet Volume 7.2 fL (7.4-10.4); Platelet Count 290 thou/uL (130-400); RBC Distribution Width 13.9 % (11.5-14.5); Red Blood Cell (RBC) Count 3.25 mill/uL (4.70-6.10); White Blood Cell (WBC) Count 6.8 thou/uL (4.8-10.8)
[2021-05-31 04:21] LABS: Anion Gap 12 mmol/L (10-20); BUN (Urea Nitrogen) 8 mg/dL (8.4-25.7); Calc. Creatinine Clearance 148 mL/min (70-130); Calcium 8.6 mg/dL (7.8-10.44); Carbon Dioxide 27 mmol/L (22-29); Chloride 95 mmol/L (98-107); Glucose 159 mg/dL (70-105); Magnesium 1.8 mg/dL (1.6-2.6); Potassium 3.4 mmol/L (3.5-5.1); Sodium 131 mmol/L (136-145)
[2021-05-31 05:03] VITALS: BMI 31.0
[2021-05-31] MEDS ORDERED: Magnesium Sulfate 1 GM/2 ML VIAL IM SCH (05:15)
[2021-05-31] MEDS ORDERED: Potassium Chloride 20 MEQ in Premix Bag 1 BAG IVPB SCH (05:15)
[2021-05-31] MEDS: Furosemide 20 MG/2 ML VIAL SLOW IVP SCH (05:35)
[2021-05-31] MEDS ORDERED: Electrolyte Replacement Protocol 1 EACH FS SCH (08:15)
[2021-05-31] MEDS: predniSONE 20 MG TAB PO SCH (08:28)
[2021-05-31] MEDS ORDERED: Electrolyte Replacement Protocol FS PRN (08:30)
[2021-05-31] MEDS ORDERED: Potassium Bicarbonate/Cit Ac 20 MEQ TAB PER TUBE SCH (08:30)
[2021-05-31] MEDS: Spironolactone 100 MG TAB PO SCH (08:34)
[2021-05-31] MEDS: Nadolol 40 MG TAB PO SCH (08:59)
[2021-05-31] MEDS: Nystatin 500,000 UNITS/5 ML UDCUP SSW SCH ×4 (08:59→21:21)
[2021-05-31] MEDS ORDERED: FLU VACC QS2021-22(6MOS UP)/PF 60 MCG/0.5 ML SYRINGE IM ONE (09:00)
[2021-05-31] MEDS ORDERED: cloNIDine 0.2 MG TAB PO SCH (09:00)
[2021-05-31] MEDS: Montelukast Sodium 10 mg Tablet PO SCH (09:00)
[2021-05-31] MEDS ORDERED: Amlodipine 5 MG TAB PO SCH (09:00)
[2021-05-31] MEDS ORDERED: Magnesium 2 GM/50 ML(in water) 2 GM in Premix Bag 1 BAG IVPB SCH (09:00)
[2021-05-31 12:32] LABS: Anion Gap 12 mmol/L (10-20); BUN (Urea Nitrogen) 9 mg/dL (8.4-25.7); Calc. Creatinine Clearance 144 mL/min (70-130); Calcium 8.6 mg/dL (7.8-10.44); Carbon Dioxide 27 mmol/L (22-29); Chloride 96 mmol/L (98-107); Glucose 109 mg/dL (70-105); Potassium 3.5 mmol/L (3.5-5.1); Sodium 131 mmol/L (136-145)
[2021-05-31] MEDS ORDERED: Sodium Chloride 0.9% 500 ML IV SCH (12:45)
[2021-05-31 17:31] LABS: PTT 145.9 sec (22.9-36.1)
[2021-05-31] MEDS: Mometasone 200 MCG/Formoterol 5 MCG 120 PUFF INHALER INH SCH (18:56)
[2021-05-31] MEDS: Apixaban 5 MG TAB PO SCH (21:20)
[2021-06-01 04:30] LABS: #Basophils 0.1 thou/uL (0.0-0.2); #Eosinphils 0.1 thou/uL (0.0-0.7); #Lymphocytes 2.7 thou/uL (1.20-3.40); #Neutrophils 8.4 thou/uL (1.40-6.50); %Basophils 0.5 % (0.0-1.0); %Eosinophils 0.8 % (0.0-10.0); %Lymphocytes 22.1 % (21.0-51.0); %Monocytes 8.1 % (0.0-10.0); %Neutrophils 68.5 % (42.0-75.0); Hemoglobin 12.5 g/dL (14.0-18.0); Mean Corpuscular HGB CONC 33.1 g/dL (32.0-36.0); Mean Platelet Volume 7.3 fL (7.4-10.4); Platelet Count 307 thou/uL (130-400); Red Blood Cell (RBC) Count 3.66 mill/uL (4.70-6.10); White Blood Cell (WBC) Count 12.2 thou/uL (4.8-10.8)
[2021-06-01 04:54] LABS: Anion Gap 12 mmol/L (10-20); BUN (Urea Nitrogen) 13 mg/dL (8.4-25.7); Calc. Creatinine Clearance 132 mL/min (70-130); Carbon Dioxide 26 mmol/L (22-29); Chloride 99 mmol/L (98-107); Glucose 68 mg/dL (70-105); Magnesium 2.2 mg/dL (1.6-2.6); Potassium 3.7 mmol/L (3.5-5.1); Sodium 133 mmol/L (136-145)
[2021-06-01] MEDS: Mometasone 200 MCG/Formoterol 5 MCG 120 PUFF INHALER INH SCH ×2 (07:23→18:42)
[2021-06-01] MEDS: Nystatin 500,000 UNITS/5 ML UDCUP SSW SCH ×4 (09:14→21:07)
[2021-06-01] MEDS: predniSONE 20 MG TAB PO SCH (09:15)
[2021-06-01] MEDS: Apixaban 5 MG TAB PO SCH ×2 (09:15→21:07)
[2021-06-01] MEDS: Montelukast Sodium 10 mg Tablet PO SCH (09:15)
[2021-06-01] MEDS: Nadolol 40 MG TAB PO SCH (09:15)
[2021-06-01] MEDS: Spironolactone 100 MG TAB PO SCH (09:15)
[2021-06-01] MEDS: Furosemide 20 MG/2 ML VIAL SLOW IVP SCH (15:00)
[2021-06-02 04:24] LABS: #Eosinphils 0.1 thou/uL (0.0-0.7); #Lymphocytes 2.1 thou/uL (1.20-3.40); #Monocytes 0.8 thou/uL (0.11-0.59); #Neutrophils 7.3 thou/uL (1.40-6.50); %Basophils 0.3 % (0.0-1.0); %Eosinophils 0.7 % (0.0-10.0); %Lymphocytes 20.5 % (21.0-51.0); %Monocytes 7.7 % (0.0-10.0); %Neutrophils 70.9 % (42.0-75.0); Hemoglobin 11.8 g/dL (14.0-18.0); Mean Corpuscular HGB CONC 32.3 g/dL (32.0-36.0); Mean Corpuscular Hemoglobin 33.3 pg (27.0-31.0); Mean Platelet Volume 7.3 fL (7.4-10.4); Platelet Count 301 thou/uL (130-400); RBC Distribution Width 13.8 % (11.5-14.5); Red Blood Cell (RBC) Count 3.53 mill/uL (4.70-6.10); White Blood Cell (WBC) Count 10.3 thou/uL (4.8-10.8)
[2021-06-02 04:50] LABS: Anion Gap 12 mmol/L (10-20); BUN (Urea Nitrogen) 13 mg/dL (8.4-25.7); Calc. Creatinine Clearance 139 mL/min (70-130); Calcium 8.8 mg/dL (7.8-10.44); Carbon Dioxide 23 mmol/L (22-29); Chloride 103 mmol/L (98-107); Glucose 95 mg/dL (70-105); Potassium 3.7 mmol/L (3.5-5.1); Sodium 134 mmol/L (136-145)
[2021-06-02] MEDS: Furosemide 20 MG/2 ML VIAL SLOW IVP SCH (05:55)
[2021-06-02] MEDS ORDERED: Magnesium 2 GM/50 ML(in water) 2 GM in Premix Bag 1 BAG IVPB SCH (06:15)
[2021-06-02] MEDS: Mometasone 200 MCG/Formoterol 5 MCG 120 PUFF INHALER INH SCH (07:32)
[2021-06-02] MEDS: Nadolol 40 MG TAB PO SCH (09:25)
[2021-06-02] MEDS: Apixaban 5 MG TAB PO SCH (09:25)
[2021-06-02] MEDS: Montelukast Sodium 10 mg Tablet PO SCH (09:25)
[2021-06-02] MEDS: predniSONE 20 MG TAB PO SCH (09:25)
[2021-06-02] MEDS: Spironolactone 100 MG TAB PO SCH (09:25)
[2021-06-02] MEDS: Nystatin 500,000 UNITS/5 ML UDCUP SSW SCH (09:26)
[2021-06-02] MEDS ORDERED: methylPREDNISolone Sod Succ/PF 125 MG/2 ML VIAL IVP SCH (10:45)
[2021-06-02 12:17] VITALS: BP 134/74; TEMP 97.5
[2021-06-07] MEDS ORDERED: Apixaban 5 MG TAB PO SCH (21:00)
== END 2021-06-02 12:50 | disposition home or self-care (01) | DRG 299 ==
LOC: ERS 16:13 → CCU 18:07 → 2NO 06-01 04:25
PROVIDERS: ADMIT Internal Medicine; ATTEND Internal Medicine
DX: I82.412 Acute embolism and thrombosis of left femoral vein (principal); I26.99 Other pulmonary embolism without acute cor pulmonale; I50.32 Chronic diastolic (congestive) heart failure; B37.89 Other sites of candidiasis; J44.1 Chronic obstructive pulmonary disease with (acute) exacerbation; E87.1 Hypo-osmolality and hyponatremia; I47.1 Supraventricular tachycardia; J44.0 Chronic obstructive pulmonary disease with (acute) lower respiratory infection; K70.31 Alcoholic cirrhosis of liver with ascites; D72.829 Elevated white blood cell count, unspecified; T38.0X5A Adverse effect of glucocorticoids and synthetic analogues, initial encounter; I48.0 Paroxysmal atrial fibrillation; E87.6 Hypokalemia; U09.9 Post COVID-19 condition, unspecified; J20.9 Acute bronchitis, unspecified; J92.0 Pleural plaque with presence of asbestos; I11.0 Hypertensive heart disease with heart failure; Z20.822 Contact with and (suspected) exposure to COVID-19; Z87.891 Personal history of nicotine dependence; Z88.1 Allergy status to other antibiotic agents; Z88.8 Allergy status to other drugs, medicaments and biological substances; Z79.51 Long term (current) use of inhaled steroids; Z79.899 Other long term (current) drug therapy; Y92.9 Unspecified place or not applicable; Z72.89 Other problems related to lifestyle
CPT/HCPCS: 36415; 36416; 71045; 71275; 80048; 80053; 83735; 83880; 84484; 85025; 85379; 85610; 85730; 93005; 93010; 93306; 93970; 94640; 96365; 96366; 96368; 96375; J1644; J1940; J2930; J3475; J3480; J3490; J7050; J7512; J7620; Q9967; U0002

== ENCOUNTER 2021-07-13 18:34 | Inpatient (IN) | payer OTHER, SELFPAY ==
[~2021-07-13 18:34] MED LIST changes: -Iopamidol 370 76% 100 ML VIAL ONE; +Iopamidol-370 76% 500 ML 1 ML ONE
[2021-07-13] MEDS ORDERED: methylPREDNISolone Sod Succ/PF 125 MG/2 ML VIAL ONE (19:28)
[2021-07-13] MEDS ORDERED: Fentanyl 100 MCG/2 ML VIAL ONE (19:28)
[2021-07-13 19:37] LABS: Hemoglobin 13.5 g/dL (14.0-18.0); Mean Corpuscular HGB CONC 33.5 g/dL (32.0-36.0); Mean Corpuscular Hemoglobin 32.4 pg (27.0-31.0); Mean Corpuscular Volume 96.7 fL (78.0-98.0); Platelet Count 328 thou/uL (130-400); RBC Distribution Width 13.2 % (11.5-14.5); Red Blood Cell (RBC) Count 4.16 mill/uL (4.70-6.10); White Blood Cell (WBC) Count 23.2 thou/uL (4.8-10.8)
[2021-07-13 19:56] LABS: ALT (SGPT) 59 U/L (8-55); AST (SGOT) 45 U/L (5-34); Albumin 3.8 g/dL (3.5-5.0); Alkaline Phosphatase 106 U/L (40-110); Anion Gap 18 mmol/L (10-20); BUN (Urea Nitrogen) 11 mg/dL (8.4-25.7); Bilirubin, Total 0.6 mg/dL (0.2-1.2); Calc. Creatinine Clearance 0 mL/min (70-130); Calcium 9.1 mg/dL (7.8-10.44); Carbon Dioxide 29 mmol/L (22-29); Chloride 87 mmol/L (98-107); Globulin 2.9 g/dL (2.4-3.5); Glucose 81 mg/dL (70-105); Lipase 29 U/L (8-78); Protein, Total 6.7 g/dL (6.0-8.3); Sodium 131 mmol/L (136-145)
[2021-07-13 20:00] LABS: Band 4 % (5-11); Lymphocytes 21 % (21-51); MDiff Complete? YES; Metamyelocyte 1 % (0-0); Monocytes 2 % (0-10); Myelocyte 1 % (0-0); Neutrophil 71 % (42-75)
[2021-07-13] MEDS ORDERED: Albuterol 200 PUFF (6.7GM INHALER) ONE (20:00)
[2021-07-13 20:08] LABS: Potassium 2.9 mmol/L (3.5-5.1)
[2021-07-13] MEDS ORDERED: Piperacillin/Tazobactam 4.5 GM VIAL ONE (20:23)
[2021-07-13 20:43] LABS: PTT 28.3 sec (22.9-36.1); Prothrombin Time 13.7 sec (12.0-14.7)
[2021-07-13 20:56] LABS: Bilirubin Negative (Negative); Blood, Urine Negative (Negative); Clarity Clear (Clear); Glucose, Urine (Dipstick) Normal (Negative); Ketone, Urine Negative (Negative); Leukocyte Negative Leu/uL (Negative); Nitrite Negative (Negative); Protein, Urine (Dipstick) Negative (Neg-Trace); Specific Gravity, Urine 1.019 (1.002-1.036); Urobilinogen Normal mg/dL (Less than 2); pH, Urine 6.5 (5.0-9.0)
[2021-07-13 21:14] LABS: SARS-CoV-2 NAA Rapid Test Not Detected (NotDetected)
[2021-07-13] MEDS ORDERED: Vancomycin 1 GM in Premix Bag 1 BAG IVPB SCH (21:45)
[2021-07-13] MEDS ORDERED: Potassium Chloride 20 MEQ TAB ONE (21:59)
[2021-07-13 22:30] LABS: Lactic Acid 1.8 mmol/L (0.5-2.2)
[2021-07-13 22:38] LABS: Magnesium 1.9 mg/dL (1.6-2.6)
[2021-07-14] MEDS ORDERED: Ondansetron PF 4 MG/2 ML Vial IVP PRN (00:27)
[2021-07-14] MEDS: Piperacillin/Tazobactam 3.375 GM in Sodium Chloride 0.9% 100 ML IVPB SCH ×3 (01:41→17:30)
[2021-07-14] MEDS: Vancomycin 1.5 GRAM/300 ML BAG 1.5 GM in Premix Bag 1 BAG IVPB SCH ×3 (03:33→21:51)
[2021-07-14 05:16] LABS: ALT (SGPT) 53 U/L (8-55); AST (SGOT) 38 U/L (5-34); Albumin 3.1 g/dL (3.5-5.0); Alkaline Phosphatase 109 U/L (40-110); Bilirubin, Direct 0.2 mg/dL (0.1-0.3); Bilirubin, Total 0.4 mg/dL (0.2-1.2); Protein, Total 5.6 g/dL (6.0-8.3)
[2021-07-14 05:20] LABS: Anion Gap 16 mmol/L (10-20); BUN (Urea Nitrogen) 13 mg/dL (8.4-25.7); Calc. Creatinine Clearance 150 mL/min (70-130); Calcium 8.2 mg/dL (7.8-10.44); Carbon Dioxide 25 mmol/L (22-29); Chloride 93 mmol/L (98-107); Glucose 199 mg/dL (70-105); Magnesium 2.1 mg/dL (1.6-2.6); Sodium 130 mmol/L (136-145)
[2021-07-14 05:28] LABS: Mean Corpuscular HGB CONC 32.6 g/dL (32.0-36.0); Mean Corpuscular Hemoglobin 31.7 pg (27.0-31.0); Mean Corpuscular Volume 97.3 fL (78.0-98.0); Mean Platelet Volume 7.2 fL (7.4-10.4); Platelet Count 260 thou/uL (130-400); RBC Distribution Width 13.1 % (11.5-14.5); Red Blood Cell (RBC) Count 3.78 mill/uL (4.70-6.10); White Blood Cell (WBC) Count 16.6 thou/uL (4.8-10.8)
[2021-07-14 05:59] LABS: Band 6 % (5-11); Lymphocytes 8 % (21-51); MDiff Complete? YES; Myelocyte 1 % (0-0); Neutrophil 85 % (42-75)
[2021-07-14] MEDS: methylPREDNISolone Sod Succ/PF 125 MG/2 ML VIAL IVP SCH ×3 (06:21→21:51)
[2021-07-14] MEDS: Mometasone 200 MCG/Formoterol 5 MCG 120 PUFF INHALER INH SCH ×2 (07:34→19:01)
[2021-07-14] MEDS: Thiamine 100 MG TAB PO SCH (09:43)
[2021-07-14] MEDS: Spironolactone 25 MG TAB PO SCH (09:43)
[2021-07-14] MEDS: Apixaban 5 MG TAB PO SCH (09:43)
[2021-07-14] MEDS: Amlodipine 5 MG TAB PO SCH (09:43)
[2021-07-14] MEDS: Torsemide 20 MG TAB PO SCH (09:44)
[2021-07-15] MEDS: Piperacillin/Tazobactam 3.375 GM in Sodium Chloride 0.9% 100 ML IVPB SCH ×3 (02:29→17:25)
[2021-07-15 03:26] LABS: Vancomycin, Trough 25.5 ug/mL
[2021-07-15 03:35] LABS: Anion Gap 19 mmol/L (10-20); BUN (Urea Nitrogen) 12 mg/dL (8.4-25.7); Calc. Creatinine Clearance 140 mL/min (70-130); Calcium 8.7 mg/dL (7.8-10.44); Carbon Dioxide 24 mmol/L (22-29); Chloride 95 mmol/L (98-107); Glucose 234 mg/dL (70-105); Magnesium 2.4 mg/dL (1.6-2.6); Potassium 3.4 mmol/L (3.5-5.1); Sodium 135 mmol/L (136-145)
[2021-07-15] MEDS ORDERED: Vancomycin 1.5 GRAM/300 ML BAG 1.5 GM in Premix Bag 1 BAG IVPB SCH (04:00)
[2021-07-15 05:33] LABS: Troponin I Less than 0.010 ng/mL (< 0.028)
[2021-07-15] MEDS: methylPREDNISolone Sod Succ/PF 125 MG/2 ML VIAL IVP SCH ×3 (06:24→23:02)
[2021-07-15] MEDS: Mometasone 200 MCG/Formoterol 5 MCG 120 PUFF INHALER INH SCH ×2 (06:47→18:39)
[2021-07-15 06:49] LABS: Band 15 % (5-11); Hemoglobin 12.5 g/dL (14.0-18.0); Lymphocytes 4 % (21-51); MDiff Complete? YES; Mean Corpuscular HGB CONC 31.8 g/dL (32.0-36.0); Mean Corpuscular Hemoglobin 31.5 pg (27.0-31.0); Mean Corpuscular Volume 99.1 fL (78.0-98.0); Mean Platelet Volume 7.5 fL (7.4-10.4); Monocytes 2 % (0-10); Neutrophil 79 % (42-75); Platelet Count 262 thou/uL (130-400); RBC Distribution Width 13.1 % (11.5-14.5); Red Blood Cell (RBC) Count 3.96 mill/uL (4.70-6.10); White Blood Cell (WBC) Count 21.7 thou/uL (4.8-10.8)
[2021-07-15] MEDS ORDERED: Potassium Chloride 20 MEQ TAB PO SCH (07:15)
[2021-07-15] MEDS: Spironolactone 25 MG TAB PO SCH (08:23)
[2021-07-15] MEDS: Apixaban 5 MG TAB PO SCH (08:23)
[2021-07-15] MEDS: Thiamine 100 MG TAB PO SCH (08:23)
[2021-07-15] MEDS: Amlodipine 5 MG TAB PO SCH (08:23)
[2021-07-15] MEDS: Torsemide 20 MG TAB PO SCH (08:23)
[2021-07-15] MEDS: Acetaminophen 500 MG TAB PO PRN (12:24)
[2021-07-15] MEDS ORDERED: Metoprolol Tartrate 5 MG/5 ML VIAL ONE (21:25)
[2021-07-15] MEDS ORDERED: Diltiazem HCl SR 60 mg Capsule PO SCH (22:00)
[2021-07-15] MEDS ORDERED: Metoprolol Tartrate 5 MG/5 ML VIAL IVP PRN (23:27)
[2021-07-15] MEDS ORDERED: Metoprolol Tartrate 5 MG/5 ML VIAL IVP SCH (23:30)
[2021-07-16] MEDS: Acetaminophen 500 MG TAB PO PRN ×2 (00:45→16:30)
[2021-07-16] MEDS: Piperacillin/Tazobactam 3.375 GM in Sodium Chloride 0.9% 100 ML IVPB SCH ×3 (02:07→19:24)
[2021-07-16 04:03] LABS: #Lymphocytes 0.5 thou/uL (1.20-3.40); #Neutrophils 22.4 thou/uL (1.40-6.50); %Eosinophils 0.1 % (0.0-10.0); %Monocytes 4.2 % (0.0-10.0); %Neutrophils 93.6 % (42.0-75.0); Hemoglobin 11.4 g/dL (14.0-18.0); Mean Corpuscular HGB CONC 31.9 g/dL (32.0-36.0); Mean Corpuscular Hemoglobin 31.8 pg (27.0-31.0); Mean Corpuscular Volume 99.8 fL (78.0-98.0); Mean Platelet Volume 7.3 fL (7.4-10.4); Platelet Count 263 thou/uL (130-400); RBC Distribution Width 13.2 % (11.5-14.5); Red Blood Cell (RBC) Count 3.57 mill/uL (4.70-6.10); White Blood Cell (WBC) Count 23.9 thou/uL (4.8-10.8)
[2021-07-16 04:30] LABS: Anion Gap 12 mmol/L (10-20); BUN (Urea Nitrogen) 16 mg/dL (8.4-25.7); Calc. Creatinine Clearance 152 mL/min (70-130); Calcium 8.6 mg/dL (7.8-10.44); Carbon Dioxide 29 mmol/L (22-29); Chloride 98 mmol/L (98-107); Glucose 255 mg/dL (70-105); Magnesium 2.1 mg/dL (1.6-2.6); Potassium 3.8 mmol/L (3.5-5.1); Sodium 135 mmol/L (136-145)
[2021-07-16] MEDS ORDERED: methylPREDNISolone Sod Succ 40 MG VIAL IVP SCH (06:00)
[2021-07-16] MEDS: Mometasone 200 MCG/Formoterol 5 MCG 120 PUFF INHALER INH SCH ×2 (06:52→18:54)
[2021-07-16] MEDS ORDERED: Lidocaine 1% PF 5 ML VIAL ONE ×2 (08:08→12:05)
[2021-07-16] MEDS ORDERED: Sodium Bicarbonate 2.5 MEQ/5 ML VIAL ONE ×2 (08:08→12:05)
[2021-07-16] MEDS: Thiamine 100 MG TAB PO SCH (09:41)
[2021-07-16] MEDS: Spironolactone 25 MG TAB PO SCH (09:41)
[2021-07-16] MEDS: Apixaban 5 MG TAB PO SCH (09:41)
[2021-07-16] MEDS: Torsemide 20 MG TAB PO SCH (09:41)
[2021-07-16] MEDS: Diltiazem HCl SR 60 mg Capsule PO SCH ×2 (09:42→21:27)
[2021-07-16 13:59] LABS: RBC Count-Automated (BF) 197 /cu.mm; WBC/Nucleated-Auto (BF) 94 /cu.mm
[2021-07-16 14:26] LABS: BF Color Colorless; Body Fluid Source Ascites Body Fluid; Clarity Hazy (Clear); Tube # EDTA
[2021-07-16 14:29] LABS: BF Segmented Neutrophils 16 %; Cell Count Non Hematic 30 %; Lymphocytes 54 %
[2021-07-17] MEDS: Acetaminophen 500 MG TAB PO PRN (00:59)
[2021-07-17] MEDS: Piperacillin/Tazobactam 3.375 GM in Sodium Chloride 0.9% 100 ML IVPB SCH ×2 (01:01→09:07)
[2021-07-17 04:36] LABS: Anion Gap 14 mmol/L (10-20); BUN (Urea Nitrogen) 13 mg/dL (8.4-25.7); Calc. Creatinine Clearance 145 mL/min (70-130); Carbon Dioxide 30 mmol/L (22-29); Chloride 98 mmol/L (98-107); Glucose 174 mg/dL (70-105); Potassium 3.5 mmol/L (3.5-5.1); Sodium 138 mmol/L (136-145)
[2021-07-17 07:21] LABS: #Lymphocytes 1.2 thou/uL (1.20-3.40); #Monocytes 2.2 thou/uL (0.11-0.59); #Neutrophils 15.3 thou/uL (1.40-6.50); %Basophils 0.1 % (0.0-1.0); %Eosinophils 0.3 % (0.0-10.0); %Lymphocytes 6.3 % (21.0-51.0); %Monocytes 11.5 % (0.0-10.0); %Neutrophils 81.8 % (42.0-75.0); Hemoglobin 12.3 g/dL (14.0-18.0); Mean Corpuscular HGB CONC 32.2 g/dL (32.0-36.0); Mean Corpuscular Hemoglobin 32.6 pg (27.0-31.0); Mean Platelet Volume 7.7 fL (7.4-10.4); Platelet Count 222 thou/uL (130-400); RBC Distribution Width 13.2 % (11.5-14.5); Red Blood Cell (RBC) Count 3.76 mill/uL (4.70-6.10); White Blood Cell (WBC) Count 18.7 thou/uL (4.8-10.8)
[2021-07-17] MEDS: Mometasone 200 MCG/Formoterol 5 MCG 120 PUFF INHALER INH SCH ×2 (07:37→18:58)
[2021-07-17] MEDS ORDERED: methylPREDNISolone Sod Succ 40 MG VIAL IVP SCH (09:00)
[2021-07-17] MEDS: Apixaban 5 MG TAB PO SCH (09:05)
[2021-07-17] MEDS: Thiamine 100 MG TAB PO SCH (09:05)
[2021-07-17] MEDS: Diltiazem HCl SR 60 mg Capsule PO SCH (09:05)
[2021-07-17] MEDS: Torsemide 20 MG TAB PO SCH (09:05)
[2021-07-17] MEDS: Spironolactone 25 MG TAB PO SCH (09:06)
[2021-07-17] MEDS ORDERED: Diltiazem HCl SR 60 mg Capsule PO SCH (11:30)
[2021-07-17] MEDS ORDERED: Diltiazem HCl SR 90 mg Capsule PO SCH (13:00)
[2021-07-17] MEDS: Bumetanide 1 MG/4 ML VIAL IVP SCH (13:48)
[2021-07-17] MEDS: Ipratropium Bromide 2.5 ml Neb NEB SCH ×2 (14:35→18:58)
[2021-07-17] MEDS: Diltiazem HCl SR 90 mg Capsule PO SCH (21:37)
[2021-07-18] MEDS: Ipratropium Bromide 2.5 ml Neb NEB SCH ×5 (02:04→21:38)
[2021-07-18 05:09] LABS: Anion Gap 13 mmol/L (10-20); BUN (Urea Nitrogen) 15 mg/dL (8.4-25.7); Calc. Creatinine Clearance 146 mL/min (70-130); Calcium 8.4 mg/dL (7.8-10.44); Carbon Dioxide 30 mmol/L (22-29); Chloride 96 mmol/L (98-107); Glucose 175 mg/dL (70-105); Potassium 3.2 mmol/L (3.5-5.1); Sodium 136 mmol/L (136-145)
[2021-07-18 05:15] LABS: Hemoglobin 11.4 g/dL (14.0-18.0); Mean Corpuscular HGB CONC 32.5 g/dL (32.0-36.0); Mean Corpuscular Hemoglobin 32.2 pg (27.0-31.0); Mean Platelet Volume 7.4 fL (7.4-10.4); Platelet Count 244 thou/uL (130-400); RBC Distribution Width 13.2 % (11.5-14.5); Red Blood Cell (RBC) Count 3.55 mill/uL (4.70-6.10); White Blood Cell (WBC) Count 18.8 thou/uL (4.8-10.8)
[2021-07-18 05:54] LABS: Band 8 % (5-11); Lymphocytes 7 % (21-51); MDiff Complete? YES; Monocytes 6 % (0-10); Myelocyte 1 % (0-0); Neutrophil 78 % (42-75)
[2021-07-18] MEDS: Bumetanide 1 MG/4 ML VIAL IVP SCH ×2 (06:12→13:38)
[2021-07-18] MEDS: Mometasone 200 MCG/Formoterol 5 MCG 120 PUFF INHALER INH SCH ×2 (07:33→18:48)
[2021-07-18] MEDS: Diltiazem HCl SR 90 mg Capsule PO SCH ×2 (09:39→20:35)
[2021-07-18] MEDS: Apixaban 5 MG TAB PO SCH (09:39)
[2021-07-18] MEDS: Spironolactone 25 MG TAB PO SCH (09:39)
[2021-07-18] MEDS: Thiamine 100 MG TAB PO SCH (09:44)
[2021-07-18] MEDS: methylPREDNISolone Sod Succ 40 MG VIAL IVP SCH ×2 (13:38→22:21)
[2021-07-19] MEDS: Ipratropium Bromide 2.5 ml Neb NEB SCH ×6 (02:01→21:41)
[2021-07-19 04:18] LABS: Anion Gap 14 mmol/L (10-20); BUN (Urea Nitrogen) 15 mg/dL (8.4-25.7); Calc. Creatinine Clearance 141 mL/min (70-130); Calcium 8.5 mg/dL (7.8-10.44); Carbon Dioxide 28 mmol/L (22-29); Chloride 96 mmol/L (98-107); Glucose 258 mg/dL (70-105); Potassium 3.6 mmol/L (3.5-5.1); Sodium 134 mmol/L (136-145)
[2021-07-19] MEDS: Bumetanide 1 MG/4 ML VIAL IVP SCH ×2 (05:25→13:45)
[2021-07-19] MEDS: Acetaminophen 500 MG TAB PO PRN (05:25)
[2021-07-19] MEDS: methylPREDNISolone Sod Succ 40 MG VIAL IVP SCH ×3 (05:26→21:28)
[2021-07-19 05:27] LABS: Band 9 % (5-11); Lymphocytes 4 % (21-51); MDiff Complete? YES; Mean Corpuscular HGB CONC 32.8 g/dL (32.0-36.0); Mean Corpuscular Hemoglobin 32.7 pg (27.0-31.0); Mean Corpuscular Volume 99.9 fL (78.0-98.0); Mean Platelet Volume 7.5 fL (7.4-10.4); Neutrophil 87 % (42-75); Platelet Count 239 thou/uL (130-400); Red Blood Cell (RBC) Count 3.65 mill/uL (4.70-6.10)
[2021-07-19] MEDS: Mometasone 200 MCG/Formoterol 5 MCG 120 PUFF INHALER INH SCH ×2 (07:39→18:15)
[2021-07-19] MEDS: Apixaban 5 MG TAB PO SCH (08:34)
[2021-07-19] MEDS: Spironolactone 25 MG TAB PO SCH (08:34)
[2021-07-19] MEDS: Thiamine 100 MG TAB PO SCH (08:34)
[2021-07-19] MEDS: Diltiazem HCl SR 90 mg Capsule PO SCH ×2 (08:34→21:28)
[2021-07-19 18:07] LABS: Actual Bicarbonate (HCO3a) 30.4 mEq/L (22-28); Base Excess (BEa) 6.6 mEq/L (-2.0 to +3.0); CO2 Tension 40.5 mmHg (35.0-45.0); Calcium, Ionized (arterial) 1.16 mmol/L (1.12-1.30); Carboxyhemoglobin (COHb) 0.5 gm% (0.0-3.0); pH, Arterial 7.49 (7.35-7.45)
[2021-07-19 18:11] LABS: O2 Tension (PaO2), arterial 46.7 mmHg (> 80.0); Puncture Site RRA
[2021-07-20] MEDS: Ipratropium Bromide 2.5 ml Neb NEB SCH ×6 (01:50→22:20)
[2021-07-20 04:39] LABS: Anion Gap 13 mmol/L (10-20); BUN (Urea Nitrogen) 15 mg/dL (8.4-25.7); Band 7 % (5-11); Calc. Creatinine Clearance 152 mL/min (70-130); Calcium 8.9 mg/dL (7.8-10.44); Carbon Dioxide 30 mmol/L (22-29); Chloride 96 mmol/L (98-107); Glucose 232 mg/dL (70-105); Hemoglobin 11.9 g/dL (14.0-18.0); Hypochromia SLIGHT = 6-15 cells (100X) (0-5/hpf); Lymphocytes 2 % (21-51); MDiff Complete? YES; Mean Corpuscular Hemoglobin 31.7 pg (27.0-31.0); Mean Corpuscular Volume 99.1 fL (78.0-98.0); Mean Platelet Volume 7.4 fL (7.4-10.4); Monocytes 9 % (0-10); Neutrophil 82 % (42-75); Platelet Count 226 thou/uL (130-400); Platelet Morphology Comment Appears Adequate; Potassium 3.6 mmol/L (3.5-5.1); RBC Distribution Width 13.2 % (11.5-14.5); Red Blood Cell (RBC) Count 3.75 mill/uL (4.70-6.10); Sodium 135 mmol/L (136-145); White Blood Cell (WBC) Count 20.9 thou/uL (4.8-10.8)
[2021-07-20] MEDS: methylPREDNISolone Sod Succ 40 MG VIAL IVP SCH ×3 (05:16→21:15)
[2021-07-20] MEDS: Bumetanide 1 MG/4 ML VIAL IVP SCH ×2 (05:16→15:36)
[2021-07-20] MEDS: Acetaminophen 500 MG TAB PO PRN (06:11)
[2021-07-20] MEDS: Mometasone 200 MCG/Formoterol 5 MCG 120 PUFF INHALER INH SCH ×2 (07:08→18:38)
[2021-07-20] MEDS: Spironolactone 25 MG TAB PO SCH (09:02)
[2021-07-20] MEDS: Thiamine 100 MG TAB PO SCH (09:02)
[2021-07-20] MEDS: Diltiazem HCl SR 90 mg Capsule PO SCH ×2 (09:02→21:12)
[2021-07-20] MEDS: Apixaban 5 MG TAB PO SCH (09:02)
[2021-07-20] MEDS: Morphine 2 MG/ML VIAL SLOW IVP PRN (16:31)
[2021-07-20 16:37] LABS: SARS-CoV-2 PCR by NAA Not Detected (NotDetected)
[2021-07-21] MEDS: Ipratropium Bromide 2.5 ml Neb NEB SCH ×6 (02:54→23:08)
[2021-07-21] MEDS: Morphine 2 MG/ML VIAL SLOW IVP PRN ×4 (04:30→19:57)
[2021-07-21 05:00] LABS: Anion Gap 13 mmol/L (10-20); BUN (Urea Nitrogen) 16 mg/dL (8.4-25.7); Calc. Creatinine Clearance 145 mL/min (70-130); Calcium 8.9 mg/dL (7.8-10.44); Carbon Dioxide 31 mmol/L (22-29); Chloride 92 mmol/L (98-107); Glucose 274 mg/dL (70-105); Potassium 3.9 mmol/L (3.5-5.1); Sodium 132 mmol/L (136-145)
[2021-07-21 05:16] LABS: Band 3 % (5-11); Hemoglobin 11.9 g/dL (14.0-18.0); Lymphocytes 1 % (21-51); MDiff Complete? YES; Mean Corpuscular HGB CONC 33.4 g/dL (32.0-36.0); Mean Corpuscular Hemoglobin 32.7 pg (27.0-31.0); Mean Corpuscular Volume 98.1 fL (78.0-98.0); Mean Platelet Volume 7.4 fL (7.4-10.4); Metamyelocyte 1 % (0-0); Monocytes 2 % (0-10); Myelocyte 2 % (0-0); Neutrophil 91 % (42-75); Nucleated RBC 1 % (0); Platelet Count 221 thou/uL (130-400); Platelet Morphology Comment Appears Adequate; RBC Distribution Width 13.2 % (11.5-14.5); RBC Morphology Normal; Red Blood Cell (RBC) Count 3.62 mill/uL (4.70-6.10); White Blood Cell (WBC) Count 21.6 thou/uL (4.8-10.8)
[2021-07-21] MEDS: Bumetanide 1 MG/4 ML VIAL IVP SCH ×2 (06:14→14:07)
[2021-07-21] MEDS: methylPREDNISolone Sod Succ 40 MG VIAL IVP SCH ×3 (06:19→21:29)
[2021-07-21] MEDS: Mometasone 200 MCG/Formoterol 5 MCG 120 PUFF INHALER INH SCH ×2 (07:34→19:10)
[2021-07-21] MEDS: Thiamine 100 MG TAB PO SCH (09:15)
[2021-07-21] MEDS: Spironolactone 25 MG TAB PO SCH (09:15)
[2021-07-21] MEDS: Diltiazem HCl SR 90 mg Capsule PO SCH ×2 (09:15→19:57)
[2021-07-21] MEDS: Apixaban 5 MG TAB PO SCH (09:15)
[2021-07-22] MEDS: Morphine 2 MG/ML VIAL SLOW IVP PRN ×3 (00:02→09:12)
[2021-07-22] MEDS ORDERED: Morphine 2 MG/ML VIAL SLOW IVP SCH (00:14)
[2021-07-22] MEDS: Ipratropium Bromide 2.5 ml Neb NEB SCH (03:13)
[2021-07-22 04:47] LABS: Anion Gap 16 mmol/L (10-20); BUN (Urea Nitrogen) 17 mg/dL (8.4-25.7); Calc. Creatinine Clearance 130 mL/min (70-130); Calcium 9.5 mg/dL (7.8-10.44); Carbon Dioxide 31 mmol/L (22-29); Chloride 94 mmol/L (98-107); Glucose 241 mg/dL (70-105); Potassium 3.7 mmol/L (3.5-5.1); Sodium 137 mmol/L (136-145)
[2021-07-22 04:49] LABS: Band 9 % (5-11); Hemoglobin 12.5 g/dL (14.0-18.0); Hypochromia SLIGHT = 6-15 cells (100X) (0-5/hpf); Lymphocytes 4 % (21-51); MDiff Complete? YES; Mean Corpuscular HGB CONC 32.3 g/dL (32.0-36.0); Mean Corpuscular Hemoglobin 31.8 pg (27.0-31.0); Mean Corpuscular Volume 98.3 fL (78.0-98.0); Mean Platelet Volume 7.2 fL (7.4-10.4); Monocytes 5 % (0-10); Neutrophil 82 % (42-75); Platelet Count 250 thou/uL (130-400); Platelet Morphology Comment Appears Adequate; RBC Distribution Width 13.3 % (11.5-14.5); Red Blood Cell (RBC) Count 3.93 mill/uL (4.70-6.10); White Blood Cell (WBC) Count 30.3 thou/uL (4.8-10.8)
[2021-07-22] MEDS: Bumetanide 1 MG/4 ML VIAL IVP SCH ×2 (04:53→14:05)
[2021-07-22] MEDS: methylPREDNISolone Sod Succ 40 MG VIAL IVP SCH ×2 (05:00→09:55)
[2021-07-22] MEDS: Mometasone 200 MCG/Formoterol 5 MCG 120 PUFF INHALER INH SCH ×2 (07:13→19:20)
[2021-07-22] MEDS: Diltiazem HCl SR 90 mg Capsule PO SCH ×2 (09:02→21:30)
[2021-07-22] MEDS: Spironolactone 25 MG TAB PO SCH (09:02)
[2021-07-22] MEDS: Thiamine 100 MG TAB PO SCH (09:03)
[2021-07-22] MEDS: Apixaban 5 MG TAB PO SCH ×2 (09:53→21:30)
[2021-07-22] MEDS ORDERED: Mineral Oil ENEMA PR SCH (10:15)
[2021-07-23] MEDS: Morphine 2 MG/ML VIAL SLOW IVP PRN (02:23)
[2021-07-23] MEDS: Bumetanide 1 MG/4 ML VIAL IVP SCH ×2 (05:31→16:05)
[2021-07-23] MEDS: Mometasone 200 MCG/Formoterol 5 MCG 120 PUFF INHALER INH SCH ×2 (06:58→18:26)
[2021-07-23 07:01] LABS: Mean Corpuscular HGB CONC 32.4 g/dL (32.0-36.0); Mean Corpuscular Volume 98.7 fL (78.0-98.0); Mean Platelet Volume 7.9 fL (7.4-10.4); Platelet Count 168 thou/uL (130-400); RBC Distribution Width 13.4 % (11.5-14.5); Red Blood Cell (RBC) Count 4.05 mill/uL (4.70-6.10); White Blood Cell (WBC) Count 35.1 thou/uL (4.8-10.8)
[2021-07-23 07:23] LABS: Anion Gap 20 mmol/L (10-20); BUN (Urea Nitrogen) 25 mg/dL (8.4-25.7); Calc. Creatinine Clearance 149 mL/min (70-130); Calcium 9.4 mg/dL (7.8-10.44); Carbon Dioxide 27 mmol/L (22-29); Chloride 96 mmol/L (98-107); Glucose 192 mg/dL (70-105); Potassium 4.2 mmol/L (3.5-5.1); Sodium 139 mmol/L (136-145)
[2021-07-23 07:29] LABS: Band 8 % (5-11); Lymphocytes 4 % (21-51); MDiff Complete? YES; Monocytes 5 % (0-10); Neutrophil 83 % (42-75); Platelet Morphology Comment Appears Adequate; RBC Morphology Normal
[2021-07-23] MEDS ORDERED: HYDROmorphone 0.5 MG/0.5 ML SYRINGE SLOW IVP SCH (10:15)
[2021-07-23] MEDS: Diltiazem HCl SR 90 mg Capsule PO SCH ×2 (10:20→20:23)
[2021-07-23] MEDS: Thiamine 100 MG TAB PO SCH (10:20)
[2021-07-23] MEDS: Apixaban 5 MG TAB PO SCH ×2 (10:20→20:23)
[2021-07-23] MEDS: methylPREDNISolone Sod Succ 40 MG VIAL IVP SCH (10:21)
[2021-07-23] MEDS: Spironolactone 25 MG TAB PO SCH (10:25)
[2021-07-23] MEDS ORDERED: Iopamidol 370 76% 100 ML VIAL ONE (14:03)
[2021-07-23] MEDS ORDERED: Bisacodyl 10 MG SUPP PR SCH (18:30)
[2021-07-23] MEDS: Rifaximin 550 MG TAB PO SCH (20:25)
[2021-07-24] MEDS: Bisacodyl 10 MG SUPP PR SCH ×3 (03:11→18:09)
[2021-07-24 05:20] LABS: Anion Gap 17 mmol/L (10-20); BUN (Urea Nitrogen) 27 mg/dL (8.4-25.7); Calc. Creatinine Clearance 159 mL/min (70-130); Calcium 9.3 mg/dL (7.8-10.44); Carbon Dioxide 31 mmol/L (22-29); Chloride 93 mmol/L (98-107); Glucose 137 mg/dL (70-105); Sodium 137 mmol/L (136-145)
[2021-07-24 05:51] LABS: Band 15 % (5-11); Hemoglobin 11.9 g/dL (14.0-18.0); Lymphocytes 5 % (21-51); MDiff Complete? YES; Mean Corpuscular HGB CONC 32.3 g/dL (32.0-36.0); Mean Corpuscular Hemoglobin 31.8 pg (27.0-31.0); Mean Corpuscular Volume 98.2 fL (78.0-98.0); Mean Platelet Volume 7.5 fL (7.4-10.4); Monocytes 5 % (0-10); Neutrophil 75 % (42-75); Platelet Count 217 thou/uL (130-400); Platelet Morphology Comment Appears Adequate; RBC Distribution Width 13.4 % (11.5-14.5); RBC Morphology Normal; Red Blood Cell (RBC) Count 3.75 mill/uL (4.70-6.10); White Blood Cell (WBC) Count 33.4 thou/uL (4.8-10.8)
[2021-07-24] MEDS: Bumetanide 1 MG/4 ML VIAL IVP SCH ×2 (05:54→14:58)
[2021-07-24] MEDS: Mometasone 200 MCG/Formoterol 5 MCG 120 PUFF INHALER INH SCH ×2 (07:30→18:13)
[2021-07-24] MEDS: Spironolactone 100 MG TAB PO SCH (10:04)
[2021-07-24] MEDS: Apixaban 5 MG TAB PO SCH ×2 (10:04→20:46)
[2021-07-24] MEDS: Diltiazem HCl SR 90 mg Capsule PO SCH ×2 (10:04→20:48)
[2021-07-24] MEDS: Rifaximin 550 MG TAB PO SCH ×2 (10:04→20:48)
[2021-07-24] MEDS: methylPREDNISolone Sod Succ 40 MG VIAL IVP SCH (10:05)
[2021-07-24] MEDS: Thiamine 100 MG TAB PO SCH (10:05)
[2021-07-24] MEDS: Polyethylene Glycol 3350 17 GM Packet PO SCH (10:08)
[2021-07-24] MEDS: Morphine 2 MG/ML VIAL SLOW IVP PRN ×2 (10:16→20:50)
[2021-07-24] MEDS ORDERED: Sodium Bicarbonate 2.5 MEQ/5 ML VIAL ONE (11:33)
[2021-07-24] MEDS ORDERED: Lidocaine 1% PF 5 ML VIAL ONE (11:33)
[2021-07-24] MEDS ORDERED: hydrOXYzine 25 MG TAB PO SCH (22:43)
[2021-07-24] MEDS ORDERED: methylPREDNISolone Sod Succ 40 MG VIAL IVP SCH (23:00)
[2021-07-25] MEDS: Bisacodyl 10 MG SUPP PR SCH ×3 (02:51→17:32)
[2021-07-25 04:36] LABS: Anion Gap 15 mmol/L (10-20); BUN (Urea Nitrogen) 24 mg/dL (8.4-25.7); Calc. Creatinine Clearance 154 mL/min (70-130); Calcium 8.5 mg/dL (7.8-10.44); Carbon Dioxide 30 mmol/L (22-29); Chloride 94 mmol/L (98-107); Glucose 186 mg/dL (70-105); Potassium 3.7 mmol/L (3.5-5.1); Sodium 135 mmol/L (136-145)
[2021-07-25 04:50] LABS: Band 6 % (5-11); Hemoglobin 10.5 g/dL (14.0-18.0); Lymphocytes 3 % (21-51); MDiff Complete? YES; Mean Platelet Volume 7.4 fL (7.4-10.4); Monocytes 1 % (0-10); Neutrophil 90 % (42-75); Platelet Count 169 thou/uL (130-400); Platelet Morphology Comment Appears Adequate; RBC Distribution Width 13.5 % (11.5-14.5); RBC Morphology Normal; Red Blood Cell (RBC) Count 3.29 mill/uL (4.70-6.10); White Blood Cell (WBC) Count 18.4 thou/uL (4.8-10.8)
[2021-07-25] MEDS: Morphine 2 MG/ML VIAL SLOW IVP PRN (06:06)
[2021-07-25] MEDS: Bumetanide 1 MG/4 ML VIAL IVP SCH ×2 (06:06→14:37)
[2021-07-25] MEDS: Mometasone 200 MCG/Formoterol 5 MCG 120 PUFF INHALER INH SCH ×2 (07:17→18:59)
[2021-07-25] MEDS: Diltiazem HCl SR 90 mg Capsule PO SCH ×2 (08:41→21:15)
[2021-07-25] MEDS: Rifaximin 550 MG TAB PO SCH ×2 (08:42→21:16)
[2021-07-25] MEDS: Spironolactone 100 MG TAB PO SCH (08:42)
[2021-07-25] MEDS: Apixaban 5 MG TAB PO SCH ×2 (08:42→21:14)
[2021-07-25] MEDS: Thiamine 100 MG TAB PO SCH (08:42)
[2021-07-25] MEDS: methylPREDNISolone Sod Succ 40 MG VIAL IVP SCH (08:42)
[2021-07-25] MEDS: Polyethylene Glycol 3350 17 GM Packet PO SCH (08:44)
[2021-07-26] MEDS: Morphine 2 MG/ML VIAL SLOW IVP PRN ×2 (01:09→22:02)
[2021-07-26] MEDS: Bisacodyl 10 MG SUPP PR SCH ×3 (02:01→17:31)
[2021-07-26 04:41] LABS: Anion Gap 14 mmol/L (10-20); BUN (Urea Nitrogen) 23 mg/dL (8.4-25.7); Calc. Creatinine Clearance 136 mL/min (70-130); Calcium 8.9 mg/dL (7.8-10.44); Carbon Dioxide 31 mmol/L (22-29); Chloride 95 mmol/L (98-107); Glucose 205 mg/dL (70-105); Potassium 3.6 mmol/L (3.5-5.1); Sodium 136 mmol/L (136-145)
[2021-07-26 04:47] LABS: Band 6 % (5-11); Hemoglobin 11.3 g/dL (14.0-18.0); Hypochromia SLIGHT = 6-15 cells (100X) (0-5/hpf); Lymphocytes 2 % (21-51); MDiff Complete? YES; Mean Corpuscular HGB CONC 33.8 g/dL (32.0-36.0); Mean Corpuscular Hemoglobin 32.8 pg (27.0-31.0); Mean Platelet Volume 7.5 fL (7.4-10.4); Monocytes 5 % (0-10); Neutrophil 86 % (42-75); Platelet Count 188 thou/uL (130-400); Platelet Morphology Comment Appears Adequate; RBC Distribution Width 13.5 % (11.5-14.5); Reactive Lymphocytes 1 % (0-10); Red Blood Cell (RBC) Count 3.45 mill/uL (4.70-6.10); White Blood Cell (WBC) Count 21.9 thou/uL (4.8-10.8)
[2021-07-26] MEDS: Bumetanide 1 MG/4 ML VIAL IVP SCH ×2 (05:58→14:57)
[2021-07-26] MEDS: Polyethylene Glycol 3350 17 GM Packet PO SCH (09:57)
[2021-07-26] MEDS: Rifaximin 550 MG TAB PO SCH ×2 (09:57→20:47)
[2021-07-26] MEDS: methylPREDNISolone Sod Succ 40 MG VIAL IVP SCH (09:57)
[2021-07-26] MEDS: Apixaban 5 MG TAB PO SCH ×2 (09:58→20:47)
[2021-07-26] MEDS: Spironolactone 100 MG TAB PO SCH (09:58)
[2021-07-26] MEDS: Thiamine 100 MG TAB PO SCH (09:58)
[2021-07-26] MEDS: Diltiazem HCl SR 90 mg Capsule PO SCH ×2 (09:58→20:48)
[2021-07-26] MEDS: Mometasone 200 MCG/Formoterol 5 MCG 120 PUFF INHALER INH SCH ×2 (10:20→19:17)
[2021-07-27] MEDS: Bisacodyl 10 MG SUPP PR SCH ×3 (01:16→17:00)
[2021-07-27 04:36] LABS: Hemoglobin 10.7 g/dL (14.0-18.0); Mean Corpuscular HGB CONC 32.8 g/dL (32.0-36.0); Mean Corpuscular Hemoglobin 32.1 pg (27.0-31.0); Mean Corpuscular Volume 97.7 fL (78.0-98.0); Mean Platelet Volume 7.7 fL (7.4-10.4); Platelet Count 191 thou/uL (130-400); RBC Distribution Width 13.5 % (11.5-14.5); Red Blood Cell (RBC) Count 3.35 mill/uL (4.70-6.10); White Blood Cell (WBC) Count 18.9 thou/uL (4.8-10.8)
[2021-07-27 04:46] LABS: Anion Gap 13 mmol/L (10-20); BUN (Urea Nitrogen) 23 mg/dL (8.4-25.7); Calc. Creatinine Clearance 138 mL/min (70-130); Calcium 8.8 mg/dL (7.8-10.44); Carbon Dioxide 30 mmol/L (22-29); Chloride 98 mmol/L (98-107); Glucose 240 mg/dL (70-105); Potassium 3.3 mmol/L (3.5-5.1); Sodium 138 mmol/L (136-145)
[2021-07-27] MEDS: Bumetanide 1 MG/4 ML VIAL IVP SCH ×2 (05:07→15:17)
[2021-07-27 05:32] LABS: Band 7 % (5-11); Lymphocytes 4 % (21-51); MDiff Complete? YES; Metamyelocyte 1 % (0-0); Monocytes 7 % (0-10); Myelocyte 1 % (0-0); Neutrophil 80 % (42-75)
[2021-07-27] MEDS: Mometasone 200 MCG/Formoterol 5 MCG 120 PUFF INHALER INH SCH ×2 (07:49→18:35)
[2021-07-27] MEDS: Spironolactone 100 MG TAB PO SCH (09:39)
[2021-07-27] MEDS: Apixaban 5 MG TAB PO SCH ×2 (09:39→20:05)
[2021-07-27] MEDS: Diltiazem HCl SR 90 mg Capsule PO SCH ×2 (09:39→20:05)
[2021-07-27] MEDS: predniSONE 20 MG TAB PO SCH (09:39)
[2021-07-27] MEDS: Polyethylene Glycol 3350 17 GM Packet PO SCH (09:40)
[2021-07-27] MEDS: Thiamine 100 MG TAB PO SCH (09:40)
[2021-07-27] MEDS: Rifaximin 550 MG TAB PO SCH ×2 (09:40→20:06)
[2021-07-27] MEDS: Morphine 2 MG/ML VIAL SLOW IVP PRN (15:18)
[2021-07-28] MEDS: Bisacodyl 10 MG SUPP PR SCH ×3 (01:00→17:02)
[2021-07-28] MEDS: Morphine 2 MG/ML VIAL SLOW IVP PRN (01:26)
[2021-07-28 05:09] LABS: Anion Gap 13 mmol/L (10-20); BUN (Urea Nitrogen) 23 mg/dL (8.4-25.7); Calc. Creatinine Clearance 132 mL/min (70-130); Calcium 8.9 mg/dL (7.8-10.44); Carbon Dioxide 32 mmol/L (22-29); Chloride 98 mmol/L (98-107); Glucose 173 mg/dL (70-105); Potassium 3.2 mmol/L (3.5-5.1); Sodium 140 mmol/L (136-145)
[2021-07-28] MEDS: Bumetanide 1 MG/4 ML VIAL IVP SCH ×2 (05:09→15:06)
[2021-07-28 05:42] LABS: Band 11 % (5-11); Hemoglobin 11.5 g/dL (14.0-18.0); Lymphocytes 15 % (21-51); MDiff Complete? YES; Mean Corpuscular HGB CONC 33.1 g/dL (32.0-36.0); Mean Corpuscular Hemoglobin 32.5 pg (27.0-31.0); Mean Corpuscular Volume 98.2 fL (78.0-98.0); Mean Platelet Volume 7.7 fL (7.4-10.4); Monocytes 8 % (0-10); Neutrophil 66 % (42-75); Platelet Count 217 thou/uL (130-400); RBC Distribution Width 13.5 % (11.5-14.5); Red Blood Cell (RBC) Count 3.53 mill/uL (4.70-6.10)
[2021-07-28] MEDS: Mometasone 200 MCG/Formoterol 5 MCG 120 PUFF INHALER INH SCH ×2 (07:04→19:00)
[2021-07-28] MEDS: Diltiazem HCl SR 90 mg Capsule PO SCH ×2 (08:45→20:22)
[2021-07-28] MEDS ORDERED: Potassium Chloride 20 MEQ TAB PO SCH (08:45)
[2021-07-28] MEDS: Rifaximin 550 MG TAB PO SCH ×2 (08:45→20:22)
[2021-07-28] MEDS: Apixaban 5 MG TAB PO SCH ×2 (08:45→20:22)
[2021-07-28] MEDS: Thiamine 100 MG TAB PO SCH (08:45)
[2021-07-28] MEDS: predniSONE 20 MG TAB PO SCH (08:45)
[2021-07-28] MEDS: Polyethylene Glycol 3350 17 GM Packet PO SCH (08:45)
[2021-07-28] MEDS: Spironolactone 100 MG TAB PO SCH (08:49)
[2021-07-29] MEDS: Morphine 2 MG/ML VIAL SLOW IVP PRN ×2 (01:02→21:11)
[2021-07-29] MEDS: Bisacodyl 10 MG SUPP PR SCH ×3 (01:04→18:04)
[2021-07-29 04:49] LABS: Hemoglobin 10.7 g/dL (14.0-18.0); Mean Corpuscular HGB CONC 32.6 g/dL (32.0-36.0); Mean Corpuscular Hemoglobin 32.1 pg (27.0-31.0); Mean Corpuscular Volume 98.6 fL (78.0-98.0); Mean Platelet Volume 7.9 fL (7.4-10.4); Platelet Count 209 thou/uL (130-400); RBC Distribution Width 13.7 % (11.5-14.5); Red Blood Cell (RBC) Count 3.33 mill/uL (4.70-6.10); White Blood Cell (WBC) Count 14.8 thou/uL (4.8-10.8)
[2021-07-29 04:54] LABS: Anion Gap 12 mmol/L (10-20); BUN (Urea Nitrogen) 21 mg/dL (8.4-25.7); Calc. Creatinine Clearance 144 mL/min (70-130); Calcium 8.6 mg/dL (7.8-10.44); Carbon Dioxide 33 mmol/L (22-29); Chloride 101 mmol/L (98-107); Glucose 182 mg/dL (70-105); Potassium 3.6 mmol/L (3.5-5.1); Sodium 142 mmol/L (136-145)
[2021-07-29 05:09] LABS: Band 9 % (5-11); Lymphocytes 16 % (21-51); MDiff Complete? YES; Monocytes 6 % (0-10); Myelocyte 1 % (0-0); Neutrophil 68 % (42-75)
[2021-07-29] MEDS: Bumetanide 1 MG/4 ML VIAL IVP SCH ×2 (05:53→14:52)
[2021-07-29] MEDS: Mometasone 200 MCG/Formoterol 5 MCG 120 PUFF INHALER INH SCH ×2 (07:22→18:58)
[2021-07-29] MEDS: Diltiazem HCl SR 90 mg Capsule PO SCH ×2 (09:00→21:11)
[2021-07-29] MEDS: Polyethylene Glycol 3350 17 GM Packet PO SCH (09:00)
[2021-07-29] MEDS: Rifaximin 550 MG TAB PO SCH ×2 (09:00→21:11)
[2021-07-29] MEDS: Thiamine 100 MG TAB PO SCH (09:00)
[2021-07-29] MEDS: Spironolactone 100 MG TAB PO SCH (09:00)
[2021-07-29] MEDS: Apixaban 5 MG TAB PO SCH ×2 (09:00→21:10)
[2021-07-29] MEDS: predniSONE 20 MG TAB PO SCH (09:00)
[2021-07-29 16:11] LABS: SARS-CoV-2 PCR by NAA Not Detected (NotDetected)
[2021-07-30] MEDS: Bisacodyl 10 MG SUPP PR SCH ×3 (02:35→17:48)
[2021-07-30 02:39] LABS: Anion Gap 14 mmol/L (10-20); BUN (Urea Nitrogen) 21 mg/dL (8.4-25.7); Calc. Creatinine Clearance 128 mL/min (70-130); Calcium 8.6 mg/dL (7.8-10.44); Carbon Dioxide 29 mmol/L (22-29); Chloride 99 mmol/L (98-107); Glucose 236 mg/dL (70-105); Magnesium 2.2 mg/dL (1.6-2.6); Potassium 3.1 mmol/L (3.5-5.1); Sodium 139 mmol/L (136-145)
[2021-07-30 02:50] LABS: Band 17 % (5-11); Hemoglobin 10.9 g/dL (14.0-18.0); Lymphocytes 13 % (21-51); MDiff Complete? YES; Mean Corpuscular HGB CONC 33.6 g/dL (32.0-36.0); Mean Corpuscular Volume 98.2 fL (78.0-98.0); Mean Platelet Volume 7.6 fL (7.4-10.4); Monocytes 3 % (0-10); Neutrophil 67 % (42-75); Platelet Count 228 thou/uL (130-400); RBC Distribution Width 13.8 % (11.5-14.5); Red Blood Cell (RBC) Count 3.31 mill/uL (4.70-6.10); White Blood Cell (WBC) Count 15.9 thou/uL (4.8-10.8)
[2021-07-30] MEDS ORDERED: Electrolyte Replacement Protocol 1 EACH FS SCH (03:45)
[2021-07-30] MEDS ORDERED: Potassium Chloride 20 MEQ TAB PO SCH (06:00)
[2021-07-30] MEDS: Bumetanide 1 MG/4 ML VIAL IVP SCH ×2 (06:01→17:47)
[2021-07-30] MEDS: Morphine 2 MG/ML VIAL SLOW IVP PRN ×2 (06:04→21:58)
[2021-07-30] MEDS: Mometasone 200 MCG/Formoterol 5 MCG 120 PUFF INHALER INH SCH ×2 (07:01→18:29)
[2021-07-30] MEDS: Polyethylene Glycol 3350 17 GM Packet PO SCH (09:51)
[2021-07-30] MEDS: predniSONE 20 MG TAB PO SCH (09:51)
[2021-07-30] MEDS: Diltiazem HCl SR 90 mg Capsule PO SCH ×2 (09:51→21:58)
[2021-07-30] MEDS: Spironolactone 100 MG TAB PO SCH (09:51)
[2021-07-30] MEDS: Thiamine 100 MG TAB PO SCH (09:51)
[2021-07-30] MEDS: Apixaban 5 MG TAB PO SCH ×2 (09:51→21:58)
[2021-07-30] MEDS: Rifaximin 550 MG TAB PO SCH ×2 (09:51→21:58)
[2021-07-30] MEDS ORDERED: Sodium Bicarbonate 2.5 MEQ/5 ML VIAL ONE (14:27)
[2021-07-30] MEDS ORDERED: Lidocaine 1% PF 5 ML VIAL ONE (14:27)
[2021-07-31] MEDS: Bisacodyl 10 MG SUPP PR SCH ×3 (01:32→17:48)
[2021-07-31 05:05] LABS: #Eosinphils 0.1 thou/uL (0.0-0.7); #Lymphocytes 1.5 thou/uL (1.20-3.40); #Monocytes 1.2 thou/uL (0.11-0.59); #Neutrophils 11.3 thou/uL (1.40-6.50); %Basophils 0.1 % (0.0-1.0); %Eosinophils 0.7 % (0.0-10.0); %Lymphocytes 10.8 % (21.0-51.0); %Monocytes 8.7 % (0.0-10.0); %Neutrophils 79.8 % (42.0-75.0); Hemoglobin 10.3 g/dL (14.0-18.0); Mean Corpuscular HGB CONC 32.8 g/dL (32.0-36.0); Mean Corpuscular Hemoglobin 32.5 pg (27.0-31.0); Mean Corpuscular Volume 99.2 fL (78.0-98.0); Mean Platelet Volume 7.7 fL (7.4-10.4); Platelet Count 233 thou/uL (130-400); RBC Distribution Width 13.8 % (11.5-14.5); Red Blood Cell (RBC) Count 3.15 mill/uL (4.70-6.10); White Blood Cell (WBC) Count 14.2 thou/uL (4.8-10.8)
[2021-07-31 05:32] LABS: Anion Gap 13 mmol/L (10-20); BUN (Urea Nitrogen) 21 mg/dL (8.4-25.7); Calc. Creatinine Clearance 150 mL/min (70-130); Calcium 8.4 mg/dL (7.8-10.44); Carbon Dioxide 29 mmol/L (22-29); Chloride 101 mmol/L (98-107); Glucose 146 mg/dL (70-105); Potassium 3.4 mmol/L (3.5-5.1); Sodium 140 mmol/L (136-145)
[2021-07-31] MEDS: Bumetanide 1 MG/4 ML VIAL IVP SCH ×2 (06:13→13:57)
[2021-07-31] MEDS: Morphine 2 MG/ML VIAL SLOW IVP PRN ×3 (06:14→20:59)
[2021-07-31] MEDS ORDERED: Potassium Chloride 20 MEQ TAB PO SCH (06:30)
[2021-07-31] MEDS: Mometasone 200 MCG/Formoterol 5 MCG 120 PUFF INHALER INH SCH ×2 (07:21→18:43)
[2021-07-31] MEDS: predniSONE 20 MG TAB PO SCH (08:41)
[2021-07-31] MEDS: Thiamine 100 MG TAB PO SCH (08:41)
[2021-07-31] MEDS: Apixaban 5 MG TAB PO SCH ×2 (08:42→20:59)
[2021-07-31] MEDS: Polyethylene Glycol 3350 17 GM Packet PO SCH (08:42)
[2021-07-31] MEDS: Diltiazem HCl SR 90 mg Capsule PO SCH ×2 (08:42→20:59)
[2021-07-31] MEDS: Rifaximin 550 MG TAB PO SCH ×2 (08:42→20:59)
[2021-07-31] MEDS: Spironolactone 100 MG TAB PO SCH (08:42)
[2021-07-31] MEDS: Albumin 25% 25 GM/100 ML BOT IVPB SCH ×3 (13:57→20:59)
[2021-07-31 16:17] VITALS: BMI 29.0
[2021-08-01] MEDS: Bisacodyl 10 MG SUPP PR SCH ×4 (01:19→19:41)
[2021-08-01 04:58] LABS: #Eosinphils 0.1 thou/uL (0.0-0.7); #Lymphocytes 1.3 thou/uL (1.20-3.40); #Monocytes 0.9 thou/uL (0.11-0.59); #Neutrophils 10.4 thou/uL (1.40-6.50); %Basophils 0.1 % (0.0-1.0); %Eosinophils 0.9 % (0.0-10.0); %Lymphocytes 10.3 % (21.0-51.0); %Neutrophils 81.8 % (42.0-75.0); Hemoglobin 9.8 g/dL (14.0-18.0); Mean Corpuscular Hemoglobin 33.4 pg (27.0-31.0); Mean Corpuscular Volume 98.3 fL (78.0-98.0); Mean Platelet Volume 7.6 fL (7.4-10.4); Platelet Count 192 thou/uL (130-400); RBC Distribution Width 13.6 % (11.5-14.5); Red Blood Cell (RBC) Count 2.93 mill/uL (4.70-6.10); White Blood Cell (WBC) Count 12.8 thou/uL (4.8-10.8)
[2021-08-01] MEDS: Albumin 25% 25 GM/100 ML BOT IVPB SCH ×3 (05:11→14:04)
[2021-08-01] MEDS: Morphine 2 MG/ML VIAL SLOW IVP PRN ×3 (05:11→21:40)
[2021-08-01 05:20] LABS: Anion Gap 15 mmol/L (10-20); BUN (Urea Nitrogen) 18 mg/dL (8.4-25.7); Calc. Creatinine Clearance 150 mL/min (70-130); Calcium 9.2 mg/dL (7.8-10.44); Carbon Dioxide 27 mmol/L (22-29); Chloride 101 mmol/L (98-107); Glucose 143 mg/dL (70-105); Potassium 4.1 mmol/L (3.5-5.1); Sodium 139 mmol/L (136-145)
[2021-08-01] MEDS: Mometasone 200 MCG/Formoterol 5 MCG 120 PUFF INHALER INH SCH ×2 (06:53→18:23)
[2021-08-01] MEDS: Spironolactone 100 MG TAB PO SCH (08:28)
[2021-08-01] MEDS: Bumetanide 1 MG TAB PO SCH ×2 (08:28→15:35)
[2021-08-01] MEDS: predniSONE 20 MG TAB PO SCH (08:28)
[2021-08-01] MEDS: Polyethylene Glycol 3350 17 GM Packet PO SCH (08:29)
[2021-08-01] MEDS: Rifaximin 550 MG TAB PO SCH ×2 (08:29→20:07)
[2021-08-01] MEDS: Thiamine 100 MG TAB PO SCH (08:29)
[2021-08-01] MEDS: Diltiazem HCl SR 90 mg Capsule PO SCH ×2 (08:29→20:07)
[2021-08-01] MEDS: Apixaban 5 MG TAB PO SCH ×2 (08:29→20:07)
[2021-08-01] MEDS ORDERED: Spironolactone 25 MG TAB PO SCH (10:30)
[2021-08-02] MEDS: Morphine 2 MG/ML VIAL SLOW IVP PRN ×2 (03:10→14:41)
[2021-08-02 04:35] LABS: #Eosinphils 0.1 thou/uL (0.0-0.7); #Lymphocytes 1.2 thou/uL (1.20-3.40); #Monocytes 0.9 thou/uL (0.11-0.59); #Neutrophils 10.1 thou/uL (1.40-6.50); %Basophils 0.1 % (0.0-1.0); %Eosinophils 0.7 % (0.0-10.0); %Lymphocytes 9.5 % (21.0-51.0); %Neutrophils 82.8 % (42.0-75.0); Hemoglobin 9.6 g/dL (14.0-18.0); Mean Corpuscular HGB CONC 33.4 g/dL (32.0-36.0); Mean Corpuscular Hemoglobin 32.7 pg (27.0-31.0); Mean Corpuscular Volume 97.9 fL (78.0-98.0); Mean Platelet Volume 7.5 fL (7.4-10.4); Platelet Count 204 thou/uL (130-400); RBC Distribution Width 13.8 % (11.5-14.5); Red Blood Cell (RBC) Count 2.93 mill/uL (4.70-6.10); White Blood Cell (WBC) Count 12.2 thou/uL (4.8-10.8)
[2021-08-02 04:51] LABS: Anion Gap 14 mmol/L (10-20); BUN (Urea Nitrogen) 17 mg/dL (8.4-25.7); Calc. Creatinine Clearance 132 mL/min (70-130); Calcium 9.1 mg/dL (7.8-10.44); Carbon Dioxide 27 mmol/L (22-29); Chloride 103 mmol/L (98-107); Glucose 177 mg/dL (70-105); Potassium 3.7 mmol/L (3.5-5.1); Sodium 140 mmol/L (136-145)
[2021-08-02] MEDS: Mometasone 200 MCG/Formoterol 5 MCG 120 PUFF INHALER INH SCH (06:48)
[2021-08-02] MEDS ORDERED: Spironolactone 100 MG TAB PO SCH (08:00)
[2021-08-02] MEDS: Bumetanide 1 MG TAB PO SCH (08:21)
[2021-08-02] MEDS: predniSONE 20 MG TAB PO SCH (08:22)
[2021-08-02] MEDS: Thiamine 100 MG TAB PO SCH (08:25)
[2021-08-02] MEDS: Diltiazem HCl SR 90 mg Capsule PO SCH (08:25)
[2021-08-02] MEDS: Apixaban 5 MG TAB PO SCH (08:26)
[2021-08-02] MEDS: Rifaximin 550 MG TAB PO SCH (08:27)
[2021-08-02] MEDS: Polyethylene Glycol 3350 17 GM Packet PO SCH (08:27)
[2021-08-02] MEDS: Bisacodyl 10 MG SUPP PR SCH (10:01)
[2021-08-02 13:55] VITALS: BP 150/74; TEMP 98.3
== END 2021-08-02 17:54 | disposition home or self-care (01) | DRG 871 ==
LOC: ERS 18:34 → 2NO 22:29
PROVIDERS: ADMIT Internal Medicine; ATTEND Hospitalist
PROC: 0W9G3ZZ Drainage of Peritoneal Cavity, Percutaneous Approach (ICD-10-PCS; principal; 2021-07-16)
PROC: 0W9G3ZZ Drainage of Peritoneal Cavity, Percutaneous Approach (ICD-10-PCS; 2021-07-24)
PROC: 0HQ7XZZ Repair Abdomen Skin, External Approach (ICD-10-PCS; 2021-07-31)
DX: A41.9 Sepsis, unspecified organism (principal); J96.21 Acute and chronic respiratory failure with hypoxia; I50.32 Chronic diastolic (congestive) heart failure; E87.2 Acidosis; J44.1 Chronic obstructive pulmonary disease with (acute) exacerbation; E87.1 Hypo-osmolality and hyponatremia; K56.7 Ileus, unspecified; K76.6 Portal hypertension; I47.2 Ventricular tachycardia; K42.9 Umbilical hernia without obstruction or gangrene; Z20.822 Contact with and (suspected) exposure to COVID-19; E87.6 Hypokalemia; I48.0 Paroxysmal atrial fibrillation; K70.31 Alcoholic cirrhosis of liver with ascites; E88.01 Alpha-1-antitrypsin deficiency; I11.0 Hypertensive heart disease with heart failure; Z86.718 Personal history of other venous thrombosis and embolism; Z79.01 Long term (current) use of anticoagulants; Z88.1 Allergy status to other antibiotic agents; Z88.8 Allergy status to other drugs, medicaments and biological substances; Z79.899 Other long term (current) drug therapy; Z87.891 Personal history of nicotine dependence; Z91.14 Patient's other noncompliance with medication regimen
CPT/HCPCS: 36415; 36416; 36600; 49083; 71045; 71275; 74018; 74176; 74177; 76705; 80048; 80053; 80076; 80202; 81003; 82805; 83605; 83690; 83735; 83880; 84484; 85025; 85060; 85610; 85730; 87040; 87070; 87086; 87205; 87324; 87449; 89051; 93005; 93010; 93306; 94640; 94760; 96365; 96367; 96375; J1170; J1956; J2270; J2405; J2543; J2920; J2930; J3010; J3370; J3490; J7512; J7620; P9047; Q9967; U0002; U0003; U0005

== ENCOUNTER 2021-08-03 12:06 | Emergency (ER) | payer OTHER, SELFPAY ==
[2021-08-03] MEDS ORDERED: Ondansetron PF 4 MG/2 ML Vial ONE (13:54)
[2021-08-03] MEDS ORDERED: Morphine 4 MG/ML VIAL ONE (13:54)
[2021-08-03 14:10] LABS: Mean Corpuscular Volume 97.1 fL (78.0-98.0); Platelet Count 210 thou/uL (130-400); RBC Distribution Width 13.9 % (11.5-14.5); Red Blood Cell (RBC) Count 3.44 mill/uL (4.70-6.10); White Blood Cell (WBC) Count 16.1 thou/uL (4.8-10.8)
[2021-08-03 14:26] LABS: Band 17 % (5-11); Lymphocytes 4 % (21-51); MDiff Complete? YES; Monocytes 1 % (0-10); Neutrophil 78 % (42-75); Platelet Morphology Comment Appears Adequate; Polychromasia SLIGHT = 2-3 cells (100X) (0-2/hpf)
[2021-08-03 14:33] LABS: ALT (SGPT) 65 U/L (8-55); AST (SGOT) 49 U/L (5-34); Albumin 4.1 g/dL (3.5-5.0); Alkaline Phosphatase 113 U/L (40-110); Anion Gap 18 mmol/L (10-20); BUN (Urea Nitrogen) 22 mg/dL (8.4-25.7); Bilirubin, Total 0.6 mg/dL (0.2-1.2); Calc. Creatinine Clearance 0 mL/min (70-130); Calcium 9.6 mg/dL (7.8-10.44); Carbon Dioxide 25 mmol/L (22-29); Chloride 97 mmol/L (98-107); Glucose 200 mg/dL (70-105); Potassium 4.8 mmol/L (3.5-5.1); Protein, Total 7.1 g/dL (6.0-8.3); Sodium 135 mmol/L (136-145)
[2021-08-03 14:44] LABS: Bilirubin Negative (Negative); Blood, Urine Negative (Negative); Clarity Clear (Clear); Glucose, Urine (Dipstick) Normal (Negative); Ketone, Urine Negative (Negative); Leukocyte Negative Leu/uL (Negative); Nitrite Negative (Negative); Protein, Urine (Dipstick) Negative (Neg-Trace); Specific Gravity, Urine 1.012 (1.002-1.036); Urobilinogen Normal mg/dL (Less than 2)
[2021-08-03] MEDS ORDERED: Levofloxacin 500 mg/D5W 100 ml Premix Bag ONE (16:22)
[2021-08-03] MEDS ORDERED: Meropenem 1 GM in Sodium Chloride 0.9% 100 ML IVPB SCH (16:45)
[2021-08-03 16:53] LABS: Lactic Acid 1.9 mmol/L (0.5-2.2)
[2021-08-03 20:07] LABS: SARS-CoV-2 NAA Rapid Test Not Detected (NotDetected)
== END 2021-08-03 22:00 | disposition short-term general hospital (02) ==
LOC: ERS 12:06
DX: A41.9 Sepsis, unspecified organism (principal); K65.2 Spontaneous bacterial peritonitis; K42.9 Umbilical hernia without obstruction or gangrene; K74.60 Unspecified cirrhosis of liver; Z20.822 Contact with and (suspected) exposure to COVID-19; J44.9 Chronic obstructive pulmonary disease, unspecified; I50.9 Heart failure, unspecified; I11.0 Hypertensive heart disease with heart failure; Z87.891 Personal history of nicotine dependence; Z79.899 Other long term (current) drug therapy
CPT/HCPCS: 36415; 71046; 80053; 81003; 83605; 83880; 84484; 85025; 87040; 93005; 96365; 96367; 96375; J1956; J2185; J2270; J2405; J3490; U0002

== ENCOUNTER 2021-08-21 17:27 | Inpatient (IN) | payer OTHER ==
[~2021-08-21 17:27] MED LIST changes: +Iopamidol 370 76% 100 ML VIAL ONE; -Iopamidol-370 76% 500 ML 1 ML ONE
[2021-08-21 18:19] LABS: Actual Bicarbonate (HCO3v) 24 mEq/L (22-28); Analyzer IN Cardio ER; Base Excess 0.2 mEq/L (-2.0 to +3.0); Calcium, Ionized (venous) 1.07 mmol/L (1.16-1.32); Chloride (VBG) 96 mmol/L (98-106); Hemoglobin (Hb) 9.1 g/dL (13.1-17.2); Potassium (VBG) 3.87 mmol/L (3.70-5.30); Sodium 129.3 mmol/L (133-146); pH (venous) 7.46 (7.32-7.43)
[2021-08-21 18:20] LABS: #Basophils 0.1 thou/uL (0.0-0.2); #Eosinphils 0.2 thou/uL (0.0-0.7); #Lymphocytes 2.5 thou/uL (1.20-3.40); #Monocytes 1.2 thou/uL (0.11-0.59); #Neutrophils 6.9 thou/uL (1.40-6.50); %Basophils 1.1 % (0.0-1.0); %Eosinophils 1.9 % (0.0-10.0); %Lymphocytes 22.7 % (21.0-51.0); %Monocytes 10.7 % (0.0-10.0); %Neutrophils 63.7 % (42.0-75.0); Hemoglobin 8.3 g/dL (14.0-18.0); Mean Corpuscular HGB CONC 31.8 g/dL (32.0-36.0); Mean Corpuscular Hemoglobin 30.6 pg (27.0-31.0); Mean Corpuscular Volume 96.5 fL (78.0-98.0); Mean Platelet Volume 6.9 fL (7.4-10.4); Platelet Count 512 thou/uL (130-400); RBC Distribution Width 15.8 % (11.5-14.5); Red Blood Cell (RBC) Count 2.72 mill/uL (4.70-6.10); White Blood Cell (WBC) Count 10.8 thou/uL (4.8-10.8)
[2021-08-21 18:36] LABS: ALT (SGPT) 35 U/L (8-55); AST (SGOT) 55 U/L (5-34); Albumin 3.7 g/dL (3.5-5.0); Alkaline Phosphatase 185 U/L (40-110); Anion Gap 14 mmol/L (10-20); BUN (Urea Nitrogen) 18 mg/dL (8.4-25.7); Bilirubin, Total 0.5 mg/dL (0.2-1.2); Calc. Creatinine Clearance 0 mL/min (70-130); Calcium 9.2 mg/dL (7.8-10.44); Carbon Dioxide 24 mmol/L (22-29); Chloride 96 mmol/L (98-107); Globulin 2.9 g/dL (2.4-3.5); Glucose 98 mg/dL (70-105); Lipase 72 U/L (8-78); Magnesium 1.7 mg/dL (1.6-2.6); Potassium 3.9 mmol/L (3.5-5.1); Protein, Total 6.6 g/dL (6.0-8.3); Sodium 130 mmol/L (136-145)
[2021-08-21] MEDS ORDERED: methylPREDNISolone Sod Succ 40 MG VIAL ONE (20:26)
[2021-08-21 20:43] LABS: Acetaminophen Less than 10.0 mcg/mL (10.0-30.0); Alcohol Less than 10 mg/dL (Less than 10); Salicylate Less than 8.0 mg/dL (15.0-30.0)
[2021-08-21 22:47] LABS: Amphetamine Not Detected (NotDetected); Barbiturates Screen Not Detected (NotDetected); Benzodiazepine Screen Not Detected (NotDetected); Cocaine Metabolite Screen Not Detected (NotDetected); Methadone Not Detected (NotDetected); Methamphetamine Not Detected (NotDetected); Opiate Screen Not Detected (NotDetected); Oxycodone Screen Not Detected (NotDetected); Phencyclidine (PCP) Not Detected (NotDetected); THC/Cannabinoid Screen Not Detected (NotDetected); Tricyclic Screen Not Detected (NotDetected)
[2021-08-21 23:13] VITALS: BMI 29.4
[2021-08-21 23:53] LABS: Troponin I Less than 0.010 ng/mL (< 0.028)
[2021-08-22 01:20] LABS: Troponin I Less than 0.010 ng/mL (< 0.028)
[2021-08-22] MEDS ORDERED: Ondansetron PF 4 MG/2 ML Vial IVP PRN (03:00)
[2021-08-22 04:52] LABS: #Eosinphils 0.1 thou/uL (0.0-0.7); #Lymphocytes 0.9 thou/uL (1.20-3.40); #Neutrophils 6.2 thou/uL (1.40-6.50); %Basophils 0.1 % (0.0-1.0); %Eosinophils 0.8 % (0.0-10.0); %Lymphocytes 12.1 % (21.0-51.0); %Monocytes 0.6 % (0.0-10.0); %Neutrophils 86.4 % (42.0-75.0); Hemoglobin 8.8 g/dL (14.0-18.0); Mean Corpuscular HGB CONC 32.4 g/dL (32.0-36.0); Mean Corpuscular Hemoglobin 31.2 pg (27.0-31.0); Mean Corpuscular Volume 96.1 fL (78.0-98.0); Mean Platelet Volume 6.7 fL (7.4-10.4); Platelet Count 449 thou/uL (130-400); RBC Distribution Width 15.5 % (11.5-14.5); Red Blood Cell (RBC) Count 2.82 mill/uL (4.70-6.10); White Blood Cell (WBC) Count 7.2 thou/uL (4.8-10.8)
[2021-08-22 05:15] LABS: Anion Gap 14 mmol/L (10-20); BUN (Urea Nitrogen) 16 mg/dL (8.4-25.7); Calc. Creatinine Clearance 124 mL/min (70-130); Carbon Dioxide 23 mmol/L (22-29); Chloride 99 mmol/L (98-107); Glucose 258 mg/dL (70-105); Potassium 4.4 mmol/L (3.5-5.1); Sodium 132 mmol/L (136-145)
[2021-08-22] MEDS ORDERED: Ipratropium Bromide 2.5 ml Neb NEB SCH (07:00)
[2021-08-22] MEDS: Mometasone 200 MCG/Formoterol 5 MCG 120 PUFF INHALER INH SCH ×2 (07:10→19:07)
[2021-08-22] MEDS ORDERED: Polyethylene Glycol 3350 17 GM Packet PO PRN (07:30)
[2021-08-22] MEDS: Diltiazem HCl SR 90 mg Capsule PO SCH ×2 (08:22→20:03)
[2021-08-22] MEDS: Bumetanide 1 MG TAB PO SCH ×2 (08:22→16:22)
[2021-08-22] MEDS: cloNIDine 0.2 MG TAB PO SCH (08:22)
[2021-08-22] MEDS: Thiamine 100 MG TAB PO SCH (08:22)
[2021-08-22] MEDS: predniSONE 20 MG TAB PO SCH (08:22)
[2021-08-22] MEDS: Spironolactone 100 MG TAB PO SCH (08:22)
[2021-08-22] MEDS: Amlodipine 5 MG TAB PO SCH (08:22)
[2021-08-22] MEDS: Apixaban 5 MG TAB PO SCH ×2 (08:22→20:03)
[2021-08-22] MEDS: Cyanocobalamin (Vitamin B-12) 1,000 MCG TAB PO SCH (08:23)
[2021-08-22] MEDS: Acetaminophen 325 MG TAB PO PRN (11:32)
[2021-08-22 15:31] LABS: SARS-CoV-2 PCR by NAA Not Detected (NotDetected)
[2021-08-23 05:00] LABS: Anion Gap 14 mmol/L (10-20); BUN (Urea Nitrogen) 18 mg/dL (8.4-25.7); Calc. Creatinine Clearance 135 mL/min (70-130); Calcium 9.1 mg/dL (7.8-10.44); Carbon Dioxide 23 mmol/L (22-29); Chloride 103 mmol/L (98-107); Glucose 152 mg/dL (70-105); Potassium 3.8 mmol/L (3.5-5.1); Sodium 136 mmol/L (136-145)
[2021-08-23] MEDS: Mometasone 200 MCG/Formoterol 5 MCG 120 PUFF INHALER INH SCH ×2 (06:43→19:14)
[2021-08-23 07:07] LABS: Hemoglobin 8.3 g/dL (14.0-18.0); Mean Corpuscular HGB CONC 31.9 g/dL (32.0-36.0); Platelet Count 557 thou/uL (130-400); RBC Distribution Width 15.4 % (11.5-14.5); Red Blood Cell (RBC) Count 2.69 mill/uL (4.70-6.10); White Blood Cell (WBC) Count 17.8 thou/uL (4.8-10.8)
[2021-08-23] MEDS: Thiamine 100 MG TAB PO SCH (08:03)
[2021-08-23] MEDS: Bumetanide 1 MG TAB PO SCH ×2 (08:03→18:17)
[2021-08-23] MEDS: Apixaban 5 MG TAB PO SCH ×2 (08:04→21:04)
[2021-08-23] MEDS: cloNIDine 0.2 MG TAB PO SCH (08:04)
[2021-08-23] MEDS: Spironolactone 100 MG TAB PO SCH (08:04)
[2021-08-23] MEDS: Amlodipine 5 MG TAB PO SCH (08:04)
[2021-08-23] MEDS: Diltiazem HCl SR 90 mg Capsule PO SCH ×2 (08:04→21:12)
[2021-08-23] MEDS: Cyanocobalamin (Vitamin B-12) 1,000 MCG TAB PO SCH (08:04)
[2021-08-23] MEDS: predniSONE 20 MG TAB PO SCH (08:04)
[2021-08-23] MEDS: Acetaminophen 325 MG TAB PO PRN (18:21)
[2021-08-24 06:44] LABS: Anion Gap 13 mmol/L (10-20); BUN (Urea Nitrogen) 17 mg/dL (8.4-25.7); Calc. Creatinine Clearance 135 mL/min (70-130); Carbon Dioxide 26 mmol/L (22-29); Chloride 102 mmol/L (98-107); Glucose 122 mg/dL (70-105); Potassium 3.1 mmol/L (3.5-5.1); Sodium 138 mmol/L (136-145)
[2021-08-24] MEDS: Mometasone 200 MCG/Formoterol 5 MCG 120 PUFF INHALER INH SCH ×2 (06:51→18:37)
[2021-08-24] MEDS: Spironolactone 100 MG TAB PO SCH (08:21)
[2021-08-24] MEDS: Bumetanide 1 MG TAB PO SCH ×2 (08:21→17:22)
[2021-08-24] MEDS: predniSONE 20 MG TAB PO SCH (08:21)
[2021-08-24] MEDS: Apixaban 5 MG TAB PO SCH ×2 (08:21→22:07)
[2021-08-24] MEDS: Cyanocobalamin (Vitamin B-12) 1,000 MCG TAB PO SCH (08:22)
[2021-08-24] MEDS: Thiamine 100 MG TAB PO SCH (08:22)
[2021-08-24] MEDS: Acetaminophen 325 MG TAB PO PRN (14:27)
[2021-08-24] MEDS: Amlodipine 5 MG TAB PO SCH (14:29)
[2021-08-24] MEDS: cloNIDine 0.2 MG TAB PO SCH (14:29)
[2021-08-24] MEDS: Diltiazem HCl SR 90 mg Capsule PO SCH ×2 (14:30→22:40)
[2021-08-24] MEDS ORDERED: Potassium Chloride 20 MEQ TAB PO SCH (17:15)
[2021-08-25] MEDS: HYDROcodone/Acetaminophen 5/325 mg Tablet PO PRN ×2 (00:28→11:53)
[2021-08-25 04:27] LABS: Anion Gap 11 mmol/L (10-20); BUN (Urea Nitrogen) 19 mg/dL (8.4-25.7); Calc. Creatinine Clearance 146 mL/min (70-130); Calcium 9.1 mg/dL (7.8-10.44); Carbon Dioxide 30 mmol/L (22-29); Chloride 101 mmol/L (98-107); Glucose 82 mg/dL (70-105); Potassium 3.7 mmol/L (3.5-5.1); Sodium 138 mmol/L (136-145)
[2021-08-25 05:33] LABS: Anisocytosis SLIGHT = 6-15 cells (100X) (0-5/hpf); Band 10 % (5-11); Hemoglobin 8.3 g/dL (14.0-18.0); Lymphocytes 20 % (21-51); MDiff Complete? YES; Mean Corpuscular HGB CONC 32.2 g/dL (32.0-36.0); Mean Corpuscular Hemoglobin 31.2 pg (27.0-31.0); Mean Corpuscular Volume 96.8 fL (78.0-98.0); Mean Platelet Volume 6.5 fL (7.4-10.4); Monocytes 5 % (0-10); Neutrophil 65 % (42-75); Platelet Count 516 thou/uL (130-400); Platelet Morphology Comment Appears Increased; Red Blood Cell (RBC) Count 2.65 mill/uL (4.70-6.10); White Blood Cell (WBC) Count 15.4 thou/uL (4.8-10.8)
[2021-08-25] MEDS: Mometasone 200 MCG/Formoterol 5 MCG 120 PUFF INHALER INH SCH (07:13)
[2021-08-25] MEDS ORDERED: Potassium Chloride 20 MEQ TAB PO SCH (08:00)
[2021-08-25] MEDS: Apixaban 5 MG TAB PO SCH (09:55)
[2021-08-25] MEDS: Diltiazem HCl SR 90 mg Capsule PO SCH (09:56)
[2021-08-25] MEDS: cloNIDine 0.2 MG TAB PO SCH (09:56)
[2021-08-25] MEDS: Spironolactone 100 MG TAB PO SCH (09:56)
[2021-08-25] MEDS: Bumetanide 1 MG TAB PO SCH (09:56)
[2021-08-25] MEDS: Cyanocobalamin (Vitamin B-12) 1,000 MCG TAB PO SCH (09:57)
[2021-08-25] MEDS: predniSONE 20 MG TAB PO SCH (09:58)
[2021-08-25] MEDS: Thiamine 100 MG TAB PO SCH (09:58)
[2021-08-25 11:58] VITALS: BP 158/67; TEMP 97.6
== END 2021-08-25 15:30 | disposition home or self-care (01) | DRG 189 ==
LOC: ERS 17:27 → 2SW 21:52 → OBSVTOIN 08-22 15:41 → T4-B 08-23 13:17 → 2NO 08-24 18:09
PROVIDERS: ADMIT Internal Medicine; ATTEND Internal Medicine
DX: J96.21 Acute and chronic respiratory failure with hypoxia (principal); I50.32 Chronic diastolic (congestive) heart failure; J98.11 Atelectasis; J44.1 Chronic obstructive pulmonary disease with (acute) exacerbation; K76.6 Portal hypertension; E87.1 Hypo-osmolality and hyponatremia; I48.0 Paroxysmal atrial fibrillation; K70.31 Alcoholic cirrhosis of liver with ascites; Z20.822 Contact with and (suspected) exposure to COVID-19; E87.6 Hypokalemia; I11.0 Hypertensive heart disease with heart failure; Z86.718 Personal history of other venous thrombosis and embolism; Z86.711 Personal history of pulmonary embolism; Z79.01 Long term (current) use of anticoagulants; Z88.8 Allergy status to other drugs, medicaments and biological substances; Z88.1 Allergy status to other antibiotic agents; Z79.899 Other long term (current) drug therapy; Z79.51 Long term (current) use of inhaled steroids; Z87.891 Personal history of nicotine dependence
CPT/HCPCS: 36415; 71045; 71275; 74177; 80048; 80053; 80306; 80307; 82805; 83605; 83690; 83735; 83880; 84443; 84484; 85025; 85027; 87040; 93005; 93010; 94640; 96374; G0378; J2920; J7512; J7620; Q9967; U0003; U0005

== ENCOUNTER 2021-08-27 16:20 | Emergency (ER) | payer OTHER ==
[~2021-08-27 16:20] MED LIST changes: -Iopamidol 370 76% 100 ML VIAL ONE; +Iopamidol-370 76% 500 ML 1 ML ONE
[2021-08-27 16:51] LABS: Hemoglobin 9.6 g/dL (14.0-18.0); Mean Corpuscular HGB CONC 32.6 g/dL (32.0-36.0); Mean Corpuscular Hemoglobin 30.4 pg (27.0-31.0); Mean Corpuscular Volume 93.4 fL (78.0-98.0); Mean Platelet Volume 6.5 fL (7.4-10.4); Platelet Count 677 thou/uL (130-400); RBC Distribution Width 15.3 % (11.5-14.5); Red Blood Cell (RBC) Count 3.17 mill/uL (4.70-6.10); White Blood Cell (WBC) Count 20.6 thou/uL (4.8-10.8)
[2021-08-27 17:10] LABS: Band 4 % (5-11); Eosinophils 2 % (0-10); Lymphocytes 17 % (21-51); MDiff Complete? YES; Monocytes 7 % (0-10); Myelocyte 2 % (0-0); Neutrophil 61 % (42-75); Platelet Morphology Comment Appears Increased; Polychromasia SLIGHT = 2-3 cells (100X) (0-2/hpf); Reactive Lymphocytes 6 % (0-10); Stomatocytes SLIGHT = 2-5 cells (100X) (0-1/hpf)
[2021-08-27 17:20] LABS: ALT (SGPT) 56 U/L (8-55); AST (SGOT) 51 U/L (5-34); Alkaline Phosphatase 205 U/L (40-110); Anion Gap 15 mmol/L (10-20); BUN (Urea Nitrogen) 17 mg/dL (8.4-25.7); Bilirubin, Total 0.5 mg/dL (0.2-1.2); Calc. Creatinine Clearance 0 mL/min (70-130); Calcium 9.2 mg/dL (7.8-10.44); Carbon Dioxide 27 mmol/L (22-29); Chloride 96 mmol/L (98-107); Globulin 3.2 g/dL (2.4-3.5); Glucose 79 mg/dL (70-105); Potassium 4.2 mmol/L (3.5-5.1); Protein, Total 7.2 g/dL (6.0-8.3); Sodium 134 mmol/L (136-145)
[2021-08-27] MEDS ORDERED: Vancomycin 1 GM/200 ML BAG ONE (17:41)
[2021-08-27] MEDS ORDERED: Aztreonam 1 GM in Sodium Chloride 0.9% 100 ML IVPB SCH (18:00)
[2021-08-27] MEDS ORDERED: Morphine 4 MG/ML VIAL ONE (18:49)
[2021-08-27 19:53] LABS: Bilirubin Negative (Negative); Blood, Urine Negative (Negative); Clarity Clear (Clear); Glucose, Urine (Dipstick) Normal (Negative); Ketone, Urine Negative (Negative); Leukocyte Negative Leu/uL (Negative); Nitrite Negative (Negative); Protein, Urine (Dipstick) Negative (Neg-Trace); Specific Gravity, Urine 1.026 (1.002-1.036); Urobilinogen Normal mg/dL (Less than 2); pH, Urine 7.5 (5.0-9.0)
[2021-08-27 22:45] LABS: SARS-CoV-2 NAA Rapid Test Not Detected (NotDetected)
== END 2021-08-27 22:18 | disposition short-term general hospital (02) ==
LOC: ERS 16:20
DX: T81.40XA Infection following a procedure, unspecified, initial encounter (principal); L03.311 Cellulitis of abdominal wall; A41.9 Sepsis, unspecified organism; D72.829 Elevated white blood cell count, unspecified; R00.0 Tachycardia, unspecified; I11.0 Hypertensive heart disease with heart failure; I50.9 Heart failure, unspecified; I49.3 Ventricular premature depolarization; J45.909 Unspecified asthma, uncomplicated; Z20.822 Contact with and (suspected) exposure to COVID-19; Z87.891 Personal history of nicotine dependence; Z86.718 Personal history of other venous thrombosis and embolism; Z86.711 Personal history of pulmonary embolism; Z79.01 Long term (current) use of anticoagulants; Z79.899 Other long term (current) drug therapy
CPT/HCPCS: 36415; 71045; 74177; 80053; 81003; 83605; 84484; 85025; 87040; 87086; 93005; 96361; 96365; 96367; 96375; J2270; J3370; J3490; Q9967; U0002

== ENCOUNTER 2021-09-16 17:00 | Inpatient (IN) | payer OTHER, SELFPAY ==
[2021-09-16 17:56] LABS: #Basophils 0.1 thou/uL (0.0-0.2); #Eosinphils 0.2 thou/uL (0.0-0.7); #Lymphocytes 2.6 thou/uL (1.20-3.40); #Monocytes 1.1 thou/uL (0.11-0.59); %Basophils 0.7 % (0.0-1.0); %Eosinophils 1.8 % (0.0-10.0); %Lymphocytes 18.3 % (21.0-51.0); %Monocytes 7.7 % (0.0-10.0); %Neutrophils 71.5 % (42.0-75.0); Hemoglobin 9.3 g/dL (14.0-18.0); Mean Corpuscular HGB CONC 32.2 g/dL (32.0-36.0); Mean Corpuscular Hemoglobin 29.1 pg (27.0-31.0); Mean Corpuscular Volume 90.4 fL (78.0-98.0); Mean Platelet Volume 7.8 fL (7.4-10.4); Platelet Count 346 thou/uL (130-400); RBC Distribution Width 16.2 % (11.5-14.5); Red Blood Cell (RBC) Count 3.18 mill/uL (4.70-6.10)
[2021-09-16 17:57] LABS: Actual Bicarbonate (HCO3v) 24 mEq/L (22-28); Analyzer IN Cardio ER; Base Excess 0.1 mEq/L (-2.0 to +3.0); Calcium, Ionized (venous) 1.08 mmol/L (1.16-1.32); Chloride (VBG) 99 mmol/L (98-106); Hemoglobin (Hb) 10.2 g/dL (13.1-17.2); Potassium (VBG) 3.19 mmol/L (3.70-5.30); Sodium 135.1 mmol/L (133-146); pH (venous) 7.43 (7.32-7.43)
[2021-09-16 18:07] LABS: ALT (SGPT) 51 U/L (8-55); AST (SGOT) 37 U/L (5-34); Albumin 3.8 g/dL (3.5-5.0); Alkaline Phosphatase 185 U/L (40-110); Anion Gap 18 mmol/L (10-20); BUN (Urea Nitrogen) 16 mg/dL (8.4-25.7); Bilirubin, Total 0.7 mg/dL (0.2-1.2); Calc. Creatinine Clearance 0 mL/min (70-130); Calcium 9.5 mg/dL (7.8-10.44); Carbon Dioxide 22 mmol/L (22-29); Chloride 100 mmol/L (98-107); Globulin 3.5 g/dL (2.4-3.5); Glucose 83 mg/dL (70-105); Potassium 3.2 mmol/L (3.5-5.1); Protein, Total 7.3 g/dL (6.0-8.3); Sodium 137 mmol/L (136-145)
[2021-09-16] MEDS ORDERED: Magnesium 2 GM/50 ML BAG (IN WATER) ONE (18:35)
[2021-09-16] MEDS ORDERED: VANCOMYCIN 2 GRAM/500 ML BAG 2 GM in Premix Bag 1 BAG IVPB SCH (18:45)
[2021-09-16] MEDS ORDERED: predniSONE 20 MG TAB ONE (18:49)
[2021-09-16 20:49] LABS: Lactic Acid 1.6 mmol/L (0.5-2.2)
[2021-09-16 20:58] LABS: Troponin I Less than 0.010 ng/mL (< 0.028)
[2021-09-16] MEDS ORDERED: Ondansetron PF 4 MG/2 ML Vial IVP PRN (22:10)
[2021-09-16] MEDS ORDERED: Ondansetron ODT 4 MG TAB PO PRN (22:10)
[2021-09-16] MEDS ORDERED: Albuterol Sulfate 2.5 mg/3 ml Neb NEB PRN (22:14)
[2021-09-16] MEDS ORDERED: Sodium Chloride 0.9% 1,000 ML IV SCH (22:15)
[2021-09-16] MEDS ORDERED: Electrolyte Replacement Protocol 1 EACH FS SCH (22:15)
[2021-09-16 22:42] VITALS: BMI 28.5
[2021-09-16] MEDS: methylPREDNISolone Sod Succ 40 MG VIAL IVP SCH (23:06)
[2021-09-16] MEDS ORDERED: Potassium Chloride 20 MEQ TAB PO SCH (23:15)
[2021-09-17 00:01] LABS: Troponin I Less than 0.010 ng/mL (< 0.028)
[2021-09-17 01:10] LABS: Potassium 3.3 mmol/L (3.5-5.1)
[2021-09-17] MEDS: Bumetanide 1 MG TAB PO SCH ×2 (05:55→17:19)
[2021-09-17] MEDS: methylPREDNISolone Sod Succ 40 MG VIAL IVP SCH ×4 (05:55→20:52)
[2021-09-17 07:05] LABS: #Lymphocytes 0.8 thou/uL (1.20-3.40); #Monocytes 0.1 thou/uL (0.11-0.59); #Neutrophils 6.1 thou/uL (1.40-6.50); %Eosinophils 0.2 % (0.0-10.0); %Lymphocytes 11.3 % (21.0-51.0); %Monocytes 1.8 % (0.0-10.0); %Neutrophils 86.7 % (42.0-75.0); Hemoglobin 9.2 g/dL (14.0-18.0); Mean Corpuscular HGB CONC 31.9 g/dL (32.0-36.0); Mean Corpuscular Hemoglobin 28.8 pg (27.0-31.0); Mean Corpuscular Volume 90.1 fL (78.0-98.0); Mean Platelet Volume 7.8 fL (7.4-10.4); Platelet Count 288 thou/uL (130-400); RBC Distribution Width 15.9 % (11.5-14.5); Red Blood Cell (RBC) Count 3.21 mill/uL (4.70-6.10)
[2021-09-17] MEDS: Mometasone 200 MCG/Formoterol 5 MCG 120 PUFF INHALER INH SCH ×2 (07:23→19:31)
[2021-09-17 07:24] LABS: Anion Gap 15 mmol/L (10-20); BUN (Urea Nitrogen) 12 mg/dL (8.4-25.7); Calc. Creatinine Clearance 136 mL/min (70-130); Calcium 9.4 mg/dL (7.8-10.44); Carbon Dioxide 21 mmol/L (22-29); Chloride 105 mmol/L (98-107); Glucose 155 mg/dL (70-105); Magnesium 2.2 mg/dL (1.6-2.6); Potassium 3.8 mmol/L (3.5-5.1); Sodium 137 mmol/L (136-145)
[2021-09-17] MEDS ORDERED: Vancomycin 1.5 GRAM/300 ML BAG 1.5 GM in Premix Bag 1 BAG IVPB SCH (08:00)
[2021-09-17] MEDS ORDERED: Amlodipine 5 MG TAB PO SCH (09:00)
[2021-09-17] MEDS ORDERED: Vancomycin 1 GM in Premix Bag 1 BAG IVPB SCH (09:00)
[2021-09-17] MEDS: Polyethylene Glycol 3350 17 GM Packet PO SCH (09:15)
[2021-09-17] MEDS: Cyanocobalamin (Vitamin B-12) 1,000 MCG TAB PO SCH (09:16)
[2021-09-17] MEDS: Diltiazem HCl SR 90 mg Capsule PO SCH ×2 (09:16→20:52)
[2021-09-17] MEDS: Spironolactone 100 MG TAB PO SCH (09:16)
[2021-09-17] MEDS: Thiamine 100 MG TAB PO SCH (09:16)
[2021-09-17] MEDS: Apixaban 5 MG TAB PO SCH ×2 (09:16→20:51)
[2021-09-17] MEDS: traMADol HCl 50 MG TAB PO PRN ×2 (17:24→23:36)
[2021-09-17] MEDS: Acetaminophen 325 MG TAB PO PRN (17:24)
[2021-09-17] MEDS: guaiFENesin ER 600 MG TAB PO SCH (20:52)
[2021-09-17] MEDS: Zolpidem Tartrate 5 MG TAB PO PRN (23:36)
[2021-09-18 04:01] LABS: #Basophils 0.1 thou/uL (0.0-0.2); #Lymphocytes 0.5 thou/uL (1.20-3.40); #Monocytes 0.4 thou/uL (0.11-0.59); #Neutrophils 14.6 thou/uL (1.40-6.50); %Basophils 0.4 % (0.0-1.0); %Eosinophils 0.1 % (0.0-10.0); %Lymphocytes 2.9 % (21.0-51.0); %Monocytes 2.8 % (0.0-10.0); %Neutrophils 93.9 % (42.0-75.0); Hemoglobin 8.8 g/dL (14.0-18.0); Mean Corpuscular HGB CONC 32.5 g/dL (32.0-36.0); Mean Corpuscular Hemoglobin 29.3 pg (27.0-31.0); Mean Corpuscular Volume 90.4 fL (78.0-98.0); Mean Platelet Volume 7.8 fL (7.4-10.4); Platelet Count 342 thou/uL (130-400); RBC Distribution Width 15.9 % (11.5-14.5); White Blood Cell (WBC) Count 15.5 thou/uL (4.8-10.8)
[2021-09-18 04:23] LABS: Anion Gap 16 mmol/L (10-20); BUN (Urea Nitrogen) 15 mg/dL (8.4-25.7); Calc. Creatinine Clearance 118 mL/min (70-130); Calcium 9.2 mg/dL (7.8-10.44); Carbon Dioxide 20 mmol/L (22-29); Chloride 105 mmol/L (98-107); Glucose 192 mg/dL (70-105); Potassium 3.8 mmol/L (3.5-5.1); Sodium 137 mmol/L (136-145)
[2021-09-18] MEDS: methylPREDNISolone Sod Succ 40 MG VIAL IVP SCH ×3 (06:19→21:30)
[2021-09-18 07:14] LABS: Lactic Acid 2.4 mmol/L (0.5-2.2)
[2021-09-18] MEDS: Mometasone 200 MCG/Formoterol 5 MCG 120 PUFF INHALER INH SCH ×2 (07:22→19:21)
[2021-09-18] MEDS: Cyanocobalamin (Vitamin B-12) 1,000 MCG TAB PO SCH (11:33)
[2021-09-18] MEDS: Apixaban 5 MG TAB PO SCH ×2 (11:33→21:30)
[2021-09-18] MEDS: Diltiazem HCl SR 90 mg Capsule PO SCH ×2 (11:34→21:30)
[2021-09-18] MEDS: Spironolactone 100 MG TAB PO SCH (11:34)
[2021-09-18] MEDS: guaiFENesin ER 600 MG TAB PO SCH ×2 (11:34→21:30)
[2021-09-18] MEDS: Thiamine 100 MG TAB PO SCH (11:34)
[2021-09-18] MEDS: Bumetanide 1 MG TAB PO SCH ×2 (11:34→17:47)
[2021-09-18] MEDS: Polyethylene Glycol 3350 17 GM Packet PO SCH (11:37)
[2021-09-18] MEDS: traMADol HCl 50 MG TAB PO PRN ×2 (11:39→17:49)
[2021-09-18] MEDS: Acetaminophen 325 MG TAB PO PRN ×2 (11:40→17:50)
[2021-09-18] MEDS: Zolpidem Tartrate 5 MG TAB PO PRN (21:30)
[2021-09-19 04:56] LABS: Anion Gap 14 mmol/L (10-20); BUN (Urea Nitrogen) 17 mg/dL (8.4-25.7); Calc. Creatinine Clearance 129 mL/min (70-130); Calcium 9.3 mg/dL (7.8-10.44); Carbon Dioxide 23 mmol/L (22-29); Chloride 104 mmol/L (98-107); Glucose 150 mg/dL (70-105); Magnesium 2.1 mg/dL (1.6-2.6); Potassium 3.7 mmol/L (3.5-5.1); Sodium 137 mmol/L (136-145)
[2021-09-19] MEDS: methylPREDNISolone Sod Succ 40 MG VIAL IVP SCH (05:10)
[2021-09-19] MEDS: Mometasone 200 MCG/Formoterol 5 MCG 120 PUFF INHALER INH SCH ×2 (06:48→18:59)
[2021-09-19] MEDS ORDERED: predniSONE 20 MG TAB PO SCH (08:15)
[2021-09-19] MEDS: Diltiazem HCl SR 90 mg Capsule PO SCH ×2 (10:27→20:58)
[2021-09-19] MEDS: Apixaban 5 MG TAB PO SCH ×2 (10:27→20:58)
[2021-09-19] MEDS: Cyanocobalamin (Vitamin B-12) 1,000 MCG TAB PO SCH (10:28)
[2021-09-19] MEDS: Bumetanide 1 MG TAB PO SCH ×2 (10:28→16:44)
[2021-09-19] MEDS: guaiFENesin ER 600 MG TAB PO SCH ×2 (10:29→20:59)
[2021-09-19] MEDS: Spironolactone 100 MG TAB PO SCH (10:29)
[2021-09-19] MEDS: Thiamine 100 MG TAB PO SCH (10:29)
[2021-09-19] MEDS: traMADol HCl 50 MG TAB PO PRN ×2 (10:30→20:59)
[2021-09-19] MEDS: Polyethylene Glycol 3350 17 GM Packet PO SCH (10:30)
[2021-09-19] MEDS: predniSONE 20 MG TAB PO SCH (16:44)
[2021-09-19] MEDS: Zolpidem Tartrate 5 MG TAB PO PRN (20:59)
[2021-09-20] MEDS: traMADol HCl 50 MG TAB PO PRN (05:56)
[2021-09-20] MEDS: Mometasone 200 MCG/Formoterol 5 MCG 120 PUFF INHALER INH SCH (07:10)
[2021-09-20 07:54] VITALS: TEMP 97.5
[2021-09-20] MEDS: Diltiazem HCl SR 90 mg Capsule PO SCH (10:07)
[2021-09-20] MEDS: guaiFENesin ER 600 MG TAB PO SCH (10:07)
[2021-09-20] MEDS: Spironolactone 100 MG TAB PO SCH (10:07)
[2021-09-20] MEDS: Bumetanide 1 MG TAB PO SCH (10:07)
[2021-09-20] MEDS: Apixaban 5 MG TAB PO SCH (10:07)
[2021-09-20] MEDS: Polyethylene Glycol 3350 17 GM Packet PO SCH (10:08)
[2021-09-20] MEDS: Thiamine 100 MG TAB PO SCH (10:08)
[2021-09-20] MEDS: Cyanocobalamin (Vitamin B-12) 1,000 MCG TAB PO SCH (10:08)
[2021-09-20] MEDS: predniSONE 20 MG TAB PO SCH (10:08)
[2021-09-20 12:09] VITALS: BP 143/72
== END 2021-09-20 13:40 | disposition home or self-care (01) | DRG 191 ==
LOC: ERS 17:00 → 2NO 19:21
PROVIDERS: ADMIT Internal Medicine; ATTEND Internal Medicine
DX: J44.1 Chronic obstructive pulmonary disease with (acute) exacerbation (principal); I50.32 Chronic diastolic (congestive) heart failure; E87.2 Acidosis; I48.92 Unspecified atrial flutter; Z20.822 Contact with and (suspected) exposure to COVID-19; Z51.5 Encounter for palliative care; K70.30 Alcoholic cirrhosis of liver without ascites; I11.0 Hypertensive heart disease with heart failure; E87.6 Hypokalemia; D72.829 Elevated white blood cell count, unspecified; T38.0X5A Adverse effect of glucocorticoids and synthetic analogues, initial encounter; D63.8 Anemia in other chronic diseases classified elsewhere; I48.0 Paroxysmal atrial fibrillation; Z86.718 Personal history of other venous thrombosis and embolism; Z86.711 Personal history of pulmonary embolism; Z98.890 Other specified postprocedural states; Z87.891 Personal history of nicotine dependence; Z88.1 Allergy status to other antibiotic agents; Z88.8 Allergy status to other drugs, medicaments and biological substances; Z79.899 Other long term (current) drug therapy; Z79.01 Long term (current) use of anticoagulants; Z79.52 Long term (current) use of systemic steroids; Z79.51 Long term (current) use of inhaled steroids; Z83.6 Family history of other diseases of the respiratory system
CPT/HCPCS: 36415; 71045; 80048; 80053; 82805; 83605; 83735; 83880; 84484; 85025; 87040; 87070; 87205; 93005; 94640; 96365; 96366; 96367; 97139; J1956; J2920; J3370; J3475; J7050; J7512; J7620; U0003; U0005

== ENCOUNTER 2021-09-23 07:13 | Inpatient (IN) | payer SELFPAY ==
[2021-09-23 07:54] LABS: Mean Corpuscular HGB CONC 32.4 g/dL (32.0-36.0); Mean Corpuscular Hemoglobin 28.6 pg (27.0-31.0); Mean Corpuscular Volume 88.1 fL (78.0-98.0); Mean Platelet Volume 8.4 fL (7.4-10.4); Platelet Count 247 thou/uL (130-400); RBC Distribution Width 16.2 % (11.5-14.5); White Blood Cell (WBC) Count 14.2 thou/uL (4.8-10.8)
[2021-09-23 08:13] LABS: ALT (SGPT) 93 U/L (8-55); AST (SGOT) 53 U/L (5-34); Albumin 3.4 g/dL (3.5-5.0); Alkaline Phosphatase 186 U/L (40-110); Anion Gap 13 mmol/L (10-20); BUN (Urea Nitrogen) 16 mg/dL (8.4-25.7); Bilirubin, Total 0.6 mg/dL (0.2-1.2); Calc. Creatinine Clearance 0 mL/min (70-130); Calcium 8.9 mg/dL (7.8-10.44); Carbon Dioxide 29 mmol/L (22-29); Chloride 101 mmol/L (98-107); Globulin 2.5 g/dL (2.4-3.5); Glucose 98 mg/dL (70-105); Lipase 112 U/L (8-78); Potassium 3.6 mmol/L (3.5-5.1); Protein, Total 5.9 g/dL (6.0-8.3); Sodium 139 mmol/L (136-145)
[2021-09-23 08:14] LABS: Band 2 % (5-11); Eosinophils 1 % (0-10); Hypochromia SLIGHT = 6-15 cells (100X) (0-5/hpf); Lymphocytes 16 % (21-51); MDiff Complete? YES; Monocytes 5 % (0-10); Neutrophil 75 % (42-75); Platelet Morphology Comment Appears Adequate; Polychromasia SLIGHT = 2-3 cells (100X) (0-2/hpf); Reactive Lymphocytes 1 % (0-10)
[2021-09-23] MEDS ORDERED: Morphine 4 MG/ML VIAL ONE (09:03)
[2021-09-23] MEDS ORDERED: Magnesium 2 GM/50 ML BAG (IN WATER) ONE (10:02)
[2021-09-23] MEDS ORDERED: Senokot S 8.6-50 MG TAB PO PRN (13:04)
[2021-09-23] MEDS ORDERED: Bisacodyl 5 MG TAB PO PRN (13:04)
[2021-09-23] MEDS ORDERED: Ondansetron ODT 4 MG TAB PO PRN (13:04)
[2021-09-23] MEDS ORDERED: Acetaminophen 325 MG TAB PO PRN (13:04)
[2021-09-23] MEDS ORDERED: Ondansetron PF 4 MG/2 ML Vial IVP PRN (13:04)
[2021-09-23] MEDS ORDERED: Bisacodyl 10 MG SUPP PR PRN (13:04)
[2021-09-23 13:32] VITALS: BMI 28.9
[2021-09-23] MEDS ORDERED: ISOVUE-370 76%-LOCM 1 ML ONE (13:48)
[2021-09-23] MEDS ORDERED: predniSONE 20 MG TAB PO SCH (14:00)
[2021-09-23 14:52] LABS: Hemoglobin A1c 5.4 % (4.0-6.0)
[2021-09-23] MEDS: Lidocaine 5% Patch TD SCH (15:35)
[2021-09-23] MEDS: Bumetanide 1 MG TAB PO SCH (16:09)
[2021-09-23 16:44] LABS: SARS-CoV-2 NAA Rapid Test Not Detected (NotDetected)
[2021-09-23 19:21] LABS: Legionella Urinary Ag Negative (Negative); Strep pneumo Urine Ag NEGATIVE (NEGATIVE)
[2021-09-23 19:27] LABS: Lactic Acid 2.6 mmol/L (0.5-2.2)
[2021-09-23] MEDS: Mometasone/Formoterol 200/5 60 PUFF INH SCH (19:33)
[2021-09-23] MEDS: HYDROcodone/Acetaminophen 5/325 mg Tablet PO PRN (20:20)
[2021-09-23] MEDS: Apixaban 5 MG TAB PO SCH (20:20)
[2021-09-23] MEDS: Diltiazem HCl SR 90 mg Capsule PO SCH (20:20)
[2021-09-23] MEDS: Famotidine 20 MG TAB PO SCH (20:20)
[2021-09-24] MEDS: Transdermal Patch Removal TOP SCH (04:29)
[2021-09-24 05:29] LABS: ALT (SGPT) 83 U/L (8-55); AST (SGOT) 43 U/L (5-34); Albumin 3.4 g/dL (3.5-5.0); Alkaline Phosphatase 201 U/L (40-110); Anion Gap 13 mmol/L (10-20); BUN (Urea Nitrogen) 15 mg/dL (8.4-25.7); Bilirubin, Total 0.3 mg/dL (0.2-1.2); Calc. Creatinine Clearance 138 mL/min (70-130); Carbon Dioxide 25 mmol/L (22-29); Cardiac Risk 2.2 (Less than 4.5); Chloride 103 mmol/L (98-107); Cholesterol 134 mg/dl (< 200 Desired); Globulin 2.9 g/dL (2.4-3.5); Glucose 207 mg/dL (70-105); HDL Cholesterol 61 mg/dL (>60 Neg Risk); LDL Cholesterol, Calculated 65 mg/dL; Lipase 75 U/L (8-78); Magnesium 2.2 mg/dL (1.6-2.6); Potassium 3.9 mmol/L (3.5-5.1); Protein, Total 6.3 g/dL (6.0-8.3); Sodium 137 mmol/L (136-145); Triglycerides 39 mg/dL (Less than 150)
[2021-09-24 05:51] LABS: Band 13 % (5-11); Hemoglobin 9.1 g/dL (14.0-18.0); Lymphocytes 6 % (21-51); MDiff Complete? YES; Mean Corpuscular HGB CONC 31.9 g/dL (32.0-36.0); Mean Corpuscular Hemoglobin 28.2 pg (27.0-31.0); Mean Corpuscular Volume 88.5 fL (78.0-98.0); Monocytes 4 % (0-10); Neutrophil 77 % (42-75); Platelet Count 233 thou/uL (130-400); RBC Distribution Width 16.5 % (11.5-14.5); Red Blood Cell (RBC) Count 3.24 mill/uL (4.70-6.10)
[2021-09-24] MEDS: Mometasone/Formoterol 200/5 60 PUFF INH SCH ×2 (06:43→18:34)
[2021-09-24] MEDS: Polyethylene Glycol 3350 17 GM Packet PO SCH (08:56)
[2021-09-24] MEDS: predniSONE 20 MG TAB PO SCH (08:57)
[2021-09-24] MEDS: Famotidine 20 MG TAB PO SCH ×2 (08:57→21:18)
[2021-09-24] MEDS: Thiamine 100 MG TAB PO SCH (08:57)
[2021-09-24] MEDS: Cyanocobalamin (Vitamin B-12) 1,000 MCG TAB PO SCH (08:57)
[2021-09-24] MEDS: cloNIDine 0.2 MG TAB PO SCH (08:58)
[2021-09-24] MEDS: Diltiazem HCl SR 90 mg Capsule PO SCH ×2 (08:58→21:18)
[2021-09-24] MEDS: Spironolactone 100 MG TAB PO SCH (08:58)
[2021-09-24] MEDS: Apixaban 5 MG TAB PO SCH ×2 (08:58→21:18)
[2021-09-24] MEDS: Bumetanide 1 MG TAB PO SCH ×2 (08:58→15:06)
[2021-09-24] MEDS ORDERED: Non-Formulary Item 1 EACH (Tiotropium Bromide [Spiriva] 18 MCG Cap.W.Dev) IH SCH (09:00)
[2021-09-24] MEDS: HYDROcodone/Acetaminophen 5/325 mg Tablet PO PRN ×3 (10:14→21:34)
[2021-09-24] MEDS: Lidocaine 5% Patch TD SCH (15:03)
[2021-09-24] MEDS ORDERED: Diltiazem 125 MG in Sodium Chloride 0.9% 100 ML IVPB SCH (18:45)
[2021-09-24] MEDS ORDERED: Diltiazem HCl 125 MG in Premix Bag 1 BAG IVPB SCH (19:00)
[2021-09-25] MEDS ORDERED: diphenhydrAMINE 25 MG CAP PO SCH (00:15)
[2021-09-25] MEDS: Transdermal Patch Removal TOP SCH (02:45)
[2021-09-25] MEDS: HYDROcodone/Acetaminophen 5/325 mg Tablet PO PRN ×2 (03:57→11:16)
[2021-09-25 05:23] LABS: Band 4 % (5-11); Eosinophils 1 % (0-10); Hemoglobin 9.2 g/dL (14.0-18.0); Lymphocytes 17 % (21-51); MDiff Complete? YES; Mean Corpuscular HGB CONC 31.5 g/dL (32.0-36.0); Mean Corpuscular Hemoglobin 28.5 pg (27.0-31.0); Mean Corpuscular Volume 90.4 fL (78.0-98.0); Mean Platelet Volume 8.4 fL (7.4-10.4); Monocytes 8 % (0-10); Myelocyte 1 % (0-0); Neutrophil 68 % (42-75); Platelet Count 243 thou/uL (130-400); RBC Distribution Width 16.7 % (11.5-14.5); Reactive Lymphocytes 1 % (0-10); Red Blood Cell (RBC) Count 3.24 mill/uL (4.70-6.10); White Blood Cell (WBC) Count 17.3 thou/uL (4.8-10.8)
[2021-09-25 05:52] LABS: ALT (SGPT) 73 U/L (8-55); AST (SGOT) 43 U/L (5-34); Albumin 3.3 g/dL (3.5-5.0); Alkaline Phosphatase 175 U/L (40-110); Anion Gap 14 mmol/L (10-20); BUN (Urea Nitrogen) 11 mg/dL (8.4-25.7); Bilirubin, Total 0.3 mg/dL (0.2-1.2); Calc. Creatinine Clearance 144 mL/min (70-130); Calcium 8.9 mg/dL (7.8-10.44); Carbon Dioxide 26 mmol/L (22-29); Chloride 100 mmol/L (98-107); Globulin 3.1 g/dL (2.4-3.5); Glucose 129 mg/dL (70-105); Magnesium 2.1 mg/dL (1.6-2.6); Potassium 3.8 mmol/L (3.5-5.1); Protein, Total 6.4 g/dL (6.0-8.3); Sodium 136 mmol/L (136-145)
[2021-09-25] MEDS: Mometasone/Formoterol 200/5 60 PUFF INH SCH ×2 (06:35→18:33)
[2021-09-25] MEDS: Spironolactone 100 MG TAB PO SCH (07:22)
[2021-09-25] MEDS: Bumetanide 1 MG TAB PO SCH ×2 (07:22→17:33)
[2021-09-25] MEDS: Polyethylene Glycol 3350 17 GM Packet PO SCH (08:27)
[2021-09-25] MEDS: Thiamine 100 MG TAB PO SCH (08:28)
[2021-09-25] MEDS: cloNIDine 0.2 MG TAB PO SCH (08:28)
[2021-09-25] MEDS: Apixaban 5 MG TAB PO SCH ×2 (08:28→20:26)
[2021-09-25] MEDS: Diltiazem HCl SR 90 mg Capsule PO SCH ×2 (08:28→20:26)
[2021-09-25] MEDS: predniSONE 20 MG TAB PO SCH (08:28)
[2021-09-25] MEDS: Famotidine 20 MG TAB PO SCH ×2 (08:28→20:26)
[2021-09-25] MEDS: Cyanocobalamin (Vitamin B-12) 1,000 MCG TAB PO SCH (08:28)
[2021-09-25] MEDS: Lidocaine 5% Patch TD SCH (17:33)
[2021-09-26] MEDS: Transdermal Patch Removal TOP SCH (04:54)
[2021-09-26 05:26] LABS: Mean Corpuscular HGB CONC 32.4 g/dL (32.0-36.0); Mean Corpuscular Hemoglobin 28.9 pg (27.0-31.0); Mean Corpuscular Volume 89.2 fL (78.0-98.0); Mean Platelet Volume 8.3 fL (7.4-10.4); Platelet Count 240 thou/uL (130-400); RBC Distribution Width 16.8 % (11.5-14.5); Red Blood Cell (RBC) Count 3.12 mill/uL (4.70-6.10); White Blood Cell (WBC) Count 16.8 thou/uL (4.8-10.8)
[2021-09-26 05:40] LABS: ALT (SGPT) 71 U/L (8-55); AST (SGOT) 39 U/L (5-34); Albumin 3.4 g/dL (3.5-5.0); Alkaline Phosphatase 179 U/L (40-110); Anion Gap 14 mmol/L (10-20); BUN (Urea Nitrogen) 13 mg/dL (8.4-25.7); Bilirubin, Total 0.2 mg/dL (0.2-1.2); Calc. Creatinine Clearance 133 mL/min (70-130); Calcium 8.9 mg/dL (7.8-10.44); Carbon Dioxide 28 mmol/L (22-29); Chloride 100 mmol/L (98-107); Globulin 2.8 g/dL (2.4-3.5); Glucose 115 mg/dL (70-105); Potassium 3.5 mmol/L (3.5-5.1); Protein, Total 6.2 g/dL (6.0-8.3); Sodium 138 mmol/L (136-145)
[2021-09-26 06:09] LABS: Band 13 % (5-11); Lymphocytes 15 % (21-51); MDiff Complete? YES; Monocytes 7 % (0-10); Neutrophil 65 % (42-75)
[2021-09-26] MEDS: Mometasone/Formoterol 200/5 60 PUFF INH SCH ×2 (07:08→19:46)
[2021-09-26] MEDS: Bumetanide 1 MG TAB PO SCH ×2 (09:15→18:34)
[2021-09-26] MEDS: Spironolactone 100 MG TAB PO SCH (09:15)
[2021-09-26] MEDS: cloNIDine 0.2 MG TAB PO SCH (09:17)
[2021-09-26] MEDS: Apixaban 5 MG TAB PO SCH ×2 (09:17→20:55)
[2021-09-26] MEDS: predniSONE 20 MG TAB PO SCH (09:18)
[2021-09-26] MEDS: Thiamine 100 MG TAB PO SCH (09:18)
[2021-09-26] MEDS: Polyethylene Glycol 3350 17 GM Packet PO SCH (09:20)
[2021-09-26] MEDS: Famotidine 20 MG TAB PO SCH ×2 (09:21→20:56)
[2021-09-26] MEDS: Diltiazem HCl SR 90 mg Capsule PO SCH ×2 (09:21→20:56)
[2021-09-26] MEDS: Cyanocobalamin (Vitamin B-12) 1,000 MCG TAB PO SCH (09:21)
[2021-09-26] MEDS: HYDROcodone/Acetaminophen 5/325 mg Tablet PO PRN (09:25)
[2021-09-26] MEDS: Lidocaine 5% Patch TD SCH (14:00)
[2021-09-27] MEDS: Transdermal Patch Removal TOP SCH (02:48)
[2021-09-27 04:29] LABS: #Eosinphils 0.1 thou/uL (0.0-0.7); #Lymphocytes 2.1 thou/uL (1.20-3.40); #Monocytes 1.7 thou/uL (0.11-0.59); #Neutrophils 13.5 thou/uL (1.40-6.50); %Basophils 0.1 % (0.0-1.0); %Eosinophils 0.8 % (0.0-10.0); %Monocytes 9.8 % (0.0-10.0); %Neutrophils 77.3 % (42.0-75.0); Hemoglobin 8.9 g/dL (14.0-18.0); Mean Corpuscular HGB CONC 31.1 g/dL (32.0-36.0); Mean Corpuscular Volume 89.8 fL (78.0-98.0); Mean Platelet Volume 8.3 fL (7.4-10.4); Platelet Count 228 thou/uL (130-400); RBC Distribution Width 16.9 % (11.5-14.5); Red Blood Cell (RBC) Count 3.18 mill/uL (4.70-6.10); White Blood Cell (WBC) Count 17.5 thou/uL (4.8-10.8)
[2021-09-27 04:52] LABS: ALT (SGPT) 69 U/L (8-55); AST (SGOT) 35 U/L (5-34); Albumin 3.4 g/dL (3.5-5.0); Alkaline Phosphatase 167 U/L (40-110); Anion Gap 12 mmol/L (10-20); BUN (Urea Nitrogen) 17 mg/dL (8.4-25.7); Bilirubin, Total 0.3 mg/dL (0.2-1.2); Calc. Creatinine Clearance 132 mL/min (70-130); Calcium 8.8 mg/dL (7.8-10.44); Carbon Dioxide 28 mmol/L (22-29); Chloride 100 mmol/L (98-107); Globulin 2.8 g/dL (2.4-3.5); Glucose 122 mg/dL (70-105); Protein, Total 6.2 g/dL (6.0-8.3); Sodium 136 mmol/L (136-145)
[2021-09-27] MEDS: Mometasone/Formoterol 200/5 60 PUFF INH SCH (07:32)
[2021-09-27] MEDS: HYDROcodone/Acetaminophen 5/325 mg Tablet PO PRN (09:07)
[2021-09-27] MEDS: Spironolactone 100 MG TAB PO SCH (09:08)
[2021-09-27] MEDS: Bumetanide 1 MG TAB PO SCH (09:08)
[2021-09-27] MEDS: Apixaban 5 MG TAB PO SCH (09:08)
[2021-09-27] MEDS: cloNIDine 0.2 MG TAB PO SCH (09:08)
[2021-09-27] MEDS: Cyanocobalamin (Vitamin B-12) 1,000 MCG TAB PO SCH (09:09)
[2021-09-27] MEDS: Famotidine 20 MG TAB PO SCH (09:09)
[2021-09-27] MEDS: Diltiazem HCl SR 90 mg Capsule PO SCH (09:09)
[2021-09-27] MEDS: predniSONE 20 MG TAB PO SCH (09:10)
[2021-09-27] MEDS: Polyethylene Glycol 3350 17 GM Packet PO SCH (09:10)
[2021-09-27] MEDS: Thiamine 100 MG TAB PO SCH (09:11)
[2021-09-27 11:11] VITALS: BP 118/64; TEMP 98
== END 2021-09-27 12:52 | disposition home or self-care (01) | DRG 189 ==
LOC: ERS 07:13 → SUATTDRO 07:13 → 2SW 12:02 → OBSVTOIN 09-25 09:13
PROVIDERS: ADMIT Internal Medicine; ATTEND Internal Medicine
DX: J96.21 Acute and chronic respiratory failure with hypoxia (principal); J44.1 Chronic obstructive pulmonary disease with (acute) exacerbation; I50.32 Chronic diastolic (congestive) heart failure; M48.56XA Collapsed vertebra, not elsewhere classified, lumbar region, initial encounter for fracture; Z20.822 Contact with and (suspected) exposure to COVID-19; K74.60 Unspecified cirrhosis of liver; I48.0 Paroxysmal atrial fibrillation; D63.8 Anemia in other chronic diseases classified elsewhere; I11.0 Hypertensive heart disease with heart failure; Z86.718 Personal history of other venous thrombosis and embolism; Z79.01 Long term (current) use of anticoagulants; Z86.711 Personal history of pulmonary embolism; Z87.891 Personal history of nicotine dependence; Z88.6 Allergy status to analgesic agent; Z88.1 Allergy status to other antibiotic agents
CPT/HCPCS: 36415; 71045; 74177; 80053; 80061; 83036; 83605; 83690; 83735; 83880; 84145; 84443; 84484; 85025; 87040; 87081; 87449; 87899; 93005; 93010; 94640; 96365; 96366; 96367; 96375; G0378; J1956; J2270; J3475; J7512; J7620; Q9966

== ENCOUNTER 2021-09-30 16:20 | Emergency (ER) | payer OTHER, SELFPAY ==
[2021-09-30] MEDS ORDERED: Ketorolac Tromethamine 30 MG/ML VIAL ONE (16:44)
== END 2021-09-30 17:52 | disposition home or self-care (01) ==
LOC: ERS 16:20
DX: J44.1 Chronic obstructive pulmonary disease with (acute) exacerbation (principal); M54.50 Low back pain, unspecified; Z87.891 Personal history of nicotine dependence; I11.0 Hypertensive heart disease with heart failure; I50.9 Heart failure, unspecified; Z86.711 Personal history of pulmonary embolism; Z86.718 Personal history of other venous thrombosis and embolism; Z79.01 Long term (current) use of anticoagulants; Z79.899 Other long term (current) drug therapy
CPT/HCPCS: 94640; 96372; J1885; J7620

== ENCOUNTER 2021-10-20 21:24 | Emergency (ER) | payer MEDICAID, OTHER, SELFPAY ==
[2021-10-20 22:20] LABS: #Basophils 0.1 thou/uL (0.0-0.2); #Eosinphils 0.3 thou/uL (0.0-0.7); #Lymphocytes 2.3 thou/uL (1.20-3.40); #Monocytes 0.8 thou/uL (0.11-0.59); #Neutrophils 4.4 thou/uL (1.40-6.50); %Basophils 1.2 % (0.0-1.0); %Eosinophils 3.5 % (0.0-10.0); %Lymphocytes 29.5 % (21.0-51.0); %Monocytes 9.6 % (0.0-10.0); %Neutrophils 56.4 % (42.0-75.0); Hemoglobin 10.1 g/dL (14.0-18.0); Mean Corpuscular HGB CONC 32.3 g/dL (32.0-36.0); Mean Corpuscular Hemoglobin 27.2 pg (27.0-31.0); Mean Corpuscular Volume 84.2 fL (78.0-98.0); Mean Platelet Volume 8.3 fL (7.4-10.4); Platelet Count 336 thou/uL (130-400); RBC Distribution Width 16.1 % (11.5-14.5); Red Blood Cell (RBC) Count 3.71 mill/uL (4.70-6.10); White Blood Cell (WBC) Count 7.9 thou/uL (4.8-10.8)
[2021-10-20 22:43] LABS: ALT (SGPT) 13 U/L (8-55); AST (SGOT) 24 U/L (5-34); Albumin 3.5 g/dL (3.5-5.0); Alkaline Phosphatase 175 U/L (40-110); Anion Gap 18 mmol/L (10-20); BUN (Urea Nitrogen) 8 mg/dL (8.4-25.7); Bilirubin, Total 0.6 mg/dL (0.2-1.2); Calc. Creatinine Clearance 0 mL/min (70-130); Calcium 8.9 mg/dL (7.8-10.44); Carbon Dioxide 25 mmol/L (22-29); Chloride 95 mmol/L (98-107); Estimated GFR 75; Globulin 3.1 g/dL (2.4-3.5); Glucose 105 mg/dL (70-105); Protein, Total 6.6 g/dL (6.0-8.3); Sodium 135 mmol/L (136-145)
[2021-10-20 22:46] LABS: CKMB 1.2 ng/mL (0-6.6)
[2021-10-21] MEDS ORDERED: methylPREDNISolone Sod Succ/PF 125 MG/2 ML VIAL ONE (00:29)
== END 2021-10-21 03:52 | disposition home or self-care (01) ==
LOC: ERS 21:24
DX: U07.1 COVID-19 (principal); J44.1 Chronic obstructive pulmonary disease with (acute) exacerbation; I11.0 Hypertensive heart disease with heart failure; I50.9 Heart failure, unspecified; Z86.711 Personal history of pulmonary embolism; Z86.718 Personal history of other venous thrombosis and embolism; Z87.891 Personal history of nicotine dependence; Z79.01 Long term (current) use of anticoagulants; Z79.899 Other long term (current) drug therapy
CPT/HCPCS: 36415; 71045; 80053; 82553; 83880; 84484; 85025; 93005; 94640; 96374; J2930; J7620; U0003; U0005

== ENCOUNTER 2021-10-21 21:04 | Inpatient (IN) | payer MEDICAID ==
[2021-10-21 21:45] LABS: #Lymphocytes 0.9 thou/uL (1.20-3.40); #Monocytes 0.2 thou/uL (0.11-0.59); #Neutrophils 4.6 thou/uL (1.40-6.50); %Lymphocytes 15.1 % (21.0-51.0); %Monocytes 3.2 % (0.0-10.0); %Neutrophils 81.7 % (42.0-75.0); Hemoglobin 9.2 g/dL (14.0-18.0); Mean Corpuscular HGB CONC 33.2 g/dL (32.0-36.0); Mean Corpuscular Hemoglobin 27.5 pg (27.0-31.0); Mean Corpuscular Volume 82.9 fL (78.0-98.0); Mean Platelet Volume 8.4 fL (7.4-10.4); Platelet Count 346 thou/uL (130-400); RBC Distribution Width 16.1 % (11.5-14.5); Red Blood Cell (RBC) Count 3.35 mill/uL (4.70-6.10); White Blood Cell (WBC) Count 5.7 thou/uL (4.8-10.8)
[2021-10-21] MEDS ORDERED: Furosemide 20 MG/2 ML VIAL ONE (21:45)
[2021-10-21 22:06] LABS: ALT (SGPT) 12 U/L (8-55); AST (SGOT) 17 U/L (5-34); Albumin 3.5 g/dL (3.5-5.0); Alkaline Phosphatase 151 U/L (40-110); Anion Gap 23 mmol/L (10-20); BUN (Urea Nitrogen) 11 mg/dL (8.4-25.7); Bilirubin, Total 0.5 mg/dL (0.2-1.2); Calc. Creatinine Clearance 0 mL/min (70-130); Calcium 8.9 mg/dL (7.8-10.44); Carbon Dioxide 19 mmol/L (22-29); Chloride 93 mmol/L (98-107); Estimated GFR 62; Globulin 3.7 g/dL (2.4-3.5); Glucose 132 mg/dL (70-105); Protein, Total 7.2 g/dL (6.0-8.3); Sodium 132 mmol/L (136-145)
[2021-10-21 22:09] LABS: Potassium 2.9 mmol/L (3.5-5.1)
[2021-10-21] MEDS ORDERED: Magnesium 2 GM/50 ML BAG (IN WATER) ONE (23:02)
[2021-10-21] MEDS ORDERED: Potassium Chloride 20 MEQ TAB ONE (23:02)
[2021-10-22] MEDS ORDERED: Acetaminophen 650 MG Suppository PR PRN (00:07)
[2021-10-22] MEDS ORDERED: Ondansetron PF 4 MG/2 ML Vial IVP PRN (00:07)
[2021-10-22] MEDS ORDERED: Acetaminophen 325 MG TAB PO PRN (00:07)
[2021-10-22] MEDS ORDERED: Ondansetron ODT 4 MG TAB PO PRN (00:07)
[2021-10-22] MEDS ORDERED: methylPREDNISolone Sod Succ 40 MG VIAL IVP SCH (00:15)
[2021-10-22] MEDS ORDERED: Electrolyte Replacement Protocol 1 EACH FS SCH (00:30)
[2021-10-22] MEDS: Azithromycin 500 MG in Sodium Chloride 0.9% 250 ML 250 ML IVPB SCH (01:05)
[2021-10-22] MEDS ORDERED: Albuterol 200 PUFF (6.7GM INHALER) INH PRN (01:30)
[2021-10-22 01:37] LABS: Troponin I Less than 0.010 ng/mL (< 0.028)
[2021-10-22 01:52] LABS: Lactic Acid 3.1 mmol/L (0.5-2.2)
[2021-10-22 01:55] LABS: Anion Gap 19 mmol/L (10-20); BUN (Urea Nitrogen) 12 mg/dL (8.4-25.7); Calc. Creatinine Clearance 85 mL/min (70-130); Calcium 8.9 mg/dL (7.8-10.44); Carbon Dioxide 23 mmol/L (22-29); Chloride 94 mmol/L (98-107); Estimated GFR 67; Glucose 161 mg/dL (70-105); Sodium 133 mmol/L (136-145)
[2021-10-22 01:59] LABS: Potassium 2.9 mmol/L (3.5-5.1)
[2021-10-22] MEDS ORDERED: Albuterol 200 PUFF (6.7GM INHALER) INH SCH (02:00)
[2021-10-22] MEDS: Potassium Chloride 20 MEQ in Premix Bag 1 BAG IVPB SCH ×3 (02:31→04:44)
[2021-10-22 04:36] LABS: #Lymphocytes 0.7 thou/uL (1.20-3.40); #Monocytes 0.5 thou/uL (0.11-0.59); #Neutrophils 6.3 thou/uL (1.40-6.50); %Basophils 0.3 % (0.0-1.0); %Eosinophils 0.1 % (0.0-10.0); %Lymphocytes 9.1 % (21.0-51.0); %Monocytes 6.3 % (0.0-10.0); %Neutrophils 84.2 % (42.0-75.0); Hemoglobin 8.2 g/dL (14.0-18.0); Mean Corpuscular HGB CONC 32.6 g/dL (32.0-36.0); Mean Corpuscular Hemoglobin 27.2 pg (27.0-31.0); Mean Corpuscular Volume 83.4 fL (78.0-98.0); Mean Platelet Volume 8.5 fL (7.4-10.4); Platelet Count 306 thou/uL (130-400); RBC Distribution Width 16.3 % (11.5-14.5); White Blood Cell (WBC) Count 7.5 thou/uL (4.8-10.8)
[2021-10-22 04:50] LABS: Anion Gap 16 mmol/L (10-20); BUN (Urea Nitrogen) 13 mg/dL (8.4-25.7); Calc. Creatinine Clearance 97 mL/min (70-130); Calcium 8.3 mg/dL (7.8-10.44); Carbon Dioxide 24 mmol/L (22-29); Chloride 100 mmol/L (98-107); Estimated GFR 79; Glucose 162 mg/dL (70-105); Potassium 3.1 mmol/L (3.5-5.1); Sodium 137 mmol/L (136-145)
[2021-10-22 04:52] LABS: Troponin I Less than 0.010 ng/mL (< 0.028)
[2021-10-22] MEDS ORDERED: Magnesium 2 GM/50 ML(in water) 2 GM in Premix Bag 1 BAG IVPB SCH (05:00)
[2021-10-22] MEDS ORDERED: Potassium Chloride 20 MEQ TAB PO SCH ×3 (05:00→14:45)
[2021-10-22] MEDS: Albuterol 200 PUFF (6.7GM INHALER) INH SCH ×3 (05:23→21:48)
[2021-10-22] MEDS ORDERED: Potassium Chloride 20 MEQ in Premix Bag 1 BAG IVPB SCH (06:30)
[2021-10-22] MEDS: Ascorbic Acid 500 mg Chewable Tablet PO SCH (08:51)
[2021-10-22] MEDS: Zinc Sulfate 220 MG CAP PO SCH (08:52)
[2021-10-22] MEDS: Furosemide 40 MG/4 ML VIAL SLOW IVP SCH (08:52)
[2021-10-22] MEDS: methylPREDNISolone Sod Succ 40 MG VIAL IVP SCH (08:52)
[2021-10-22 10:39] VITALS: BMI 28.0
[2021-10-22] MEDS: HYDROcodone/Acetaminophen 5/325 mg Tablet PO PRN ×2 (13:06→21:48)
[2021-10-22] MEDS: Cholecalciferol (Vitamin D3) 400 UNITS TAB PO SCH (13:06)
[2021-10-22 13:20] LABS: Potassium 3.4 mmol/L (3.5-5.1)
[2021-10-22 19:34] LABS: Potassium 3.9 mmol/L (3.5-5.1)
[2021-10-22] MEDS: Apixaban 5 MG TAB PO SCH (21:47)
[2021-10-23] MEDS: Azithromycin 500 MG in Sodium Chloride 0.9% 250 ML 250 ML IVPB SCH (02:03)
[2021-10-23] MEDS: Albuterol 200 PUFF (6.7GM INHALER) INH SCH ×4 (02:44→20:14)
[2021-10-23 05:08] LABS: #Basophils 0.1 thou/uL (0.0-0.2); #Lymphocytes 0.7 thou/uL (1.20-3.40); #Monocytes 1.1 thou/uL (0.11-0.59); #Neutrophils 10.8 thou/uL (1.40-6.50); %Basophils 0.5 % (0.0-1.0); %Eosinophils 0.1 % (0.0-10.0); %Lymphocytes 5.9 % (21.0-51.0); %Monocytes 8.6 % (0.0-10.0); Hemoglobin 8.7 g/dL (14.0-18.0); Mean Corpuscular HGB CONC 31.4 g/dL (32.0-36.0); Mean Corpuscular Hemoglobin 26.7 pg (27.0-31.0); Mean Platelet Volume 8.5 fL (7.4-10.4); Platelet Count 358 thou/uL (130-400); RBC Distribution Width 16.1 % (11.5-14.5); Red Blood Cell (RBC) Count 3.27 mill/uL (4.70-6.10); White Blood Cell (WBC) Count 12.7 thou/uL (4.8-10.8)
[2021-10-23 05:29] LABS: Anion Gap 12 mmol/L (10-20); BUN (Urea Nitrogen) 16 mg/dL (8.4-25.7); Calc. Creatinine Clearance 116 mL/min (70-130); Calcium 8.5 mg/dL (7.8-10.44); Carbon Dioxide 28 mmol/L (22-29); Chloride 105 mmol/L (98-107); Estimated GFR 98; Glucose 148 mg/dL (70-105); Potassium 4.1 mmol/L (3.5-5.1); Sodium 141 mmol/L (136-145)
[2021-10-23 08:16] LABS: Magnesium 2.5 mg/dL (1.6-2.6)
[2021-10-23] MEDS: HYDROcodone/Acetaminophen 5/325 mg Tablet PO PRN ×2 (09:23→20:18)
[2021-10-23] MEDS: Cholecalciferol (Vitamin D3) 400 UNITS TAB PO SCH (09:25)
[2021-10-23] MEDS: Ascorbic Acid 500 mg Chewable Tablet PO SCH (09:25)
[2021-10-23] MEDS: Benzonatate 100 MG CAP PO PRN (09:25)
[2021-10-23] MEDS: Zinc Sulfate 220 MG CAP PO SCH (09:25)
[2021-10-23] MEDS: Spironolactone 100 MG TAB PO SCH (09:25)
[2021-10-23] MEDS: Apixaban 5 MG TAB PO SCH ×2 (09:27→20:13)
[2021-10-23] MEDS: Furosemide 40 MG/4 ML VIAL SLOW IVP SCH (09:27)
[2021-10-23] MEDS: methylPREDNISolone Sod Succ 40 MG VIAL IVP SCH (09:30)
[2021-10-23] MEDS: Mometasone 200 MCG/Formoterol 5 MCG 120 PUFF INHALER INH SCH (20:13)
[2021-10-23] MEDS: cloNIDine 0.2 MG TAB PO SCH (20:18)
[2021-10-24] MEDS: Azithromycin 500 MG in Sodium Chloride 0.9% 250 ML 250 ML IVPB SCH (00:13)
[2021-10-24] MEDS: Albuterol 200 PUFF (6.7GM INHALER) INH SCH ×3 (00:18→13:52)
[2021-10-24] MEDS: Mometasone 200 MCG/Formoterol 5 MCG 120 PUFF INHALER INH SCH (05:57)
[2021-10-24 06:45] LABS: #Lymphocytes 1.1 thou/uL (1.20-3.40); #Monocytes 1.1 thou/uL (0.11-0.59); #Neutrophils 8.3 thou/uL (1.40-6.50); %Basophils 0.1 % (0.0-1.0); %Eosinophils 0.1 % (0.0-10.0); %Lymphocytes 10.6 % (21.0-51.0); %Monocytes 10.5 % (0.0-10.0); %Neutrophils 78.7 % (42.0-75.0); Hemoglobin 8.8 g/dL (14.0-18.0); Mean Corpuscular HGB CONC 31.6 g/dL (32.0-36.0); Mean Corpuscular Hemoglobin 26.9 pg (27.0-31.0); Mean Corpuscular Volume 85.3 fL (78.0-98.0); Mean Platelet Volume 8.2 fL (7.4-10.4); Platelet Count 330 thou/uL (130-400); Red Blood Cell (RBC) Count 3.27 mill/uL (4.70-6.10); White Blood Cell (WBC) Count 10.6 thou/uL (4.8-10.8)
[2021-10-24 06:49] LABS: Anion Gap 11 mmol/L (10-20); BUN (Urea Nitrogen) 14 mg/dL (8.4-25.7); Calc. Creatinine Clearance 144 mL/min (70-130); Calcium 8.7 mg/dL (7.8-10.44); Carbon Dioxide 30 mmol/L (22-29); Chloride 105 mmol/L (98-107); Estimated GFR 103; Glucose 128 mg/dL (70-105); Potassium 3.5 mmol/L (3.5-5.1); Sodium 142 mmol/L (136-145)
[2021-10-24] MEDS ORDERED: Potassium Chloride 20 MEQ TAB PO SCH (08:00)
[2021-10-24] MEDS: methylPREDNISolone Sod Succ 40 MG VIAL IVP SCH (08:32)
[2021-10-24] MEDS: Cholecalciferol (Vitamin D3) 400 UNITS TAB PO SCH (08:32)
[2021-10-24] MEDS: cloNIDine 0.2 MG TAB PO SCH (08:34)
[2021-10-24] MEDS: Ascorbic Acid 500 mg Chewable Tablet PO SCH (08:34)
[2021-10-24] MEDS: Spironolactone 100 MG TAB PO SCH (08:36)
[2021-10-24] MEDS: Zinc Sulfate 220 MG CAP PO SCH (08:37)
[2021-10-24] MEDS: Apixaban 5 MG TAB PO SCH (08:37)
[2021-10-24] MEDS: Benzonatate 100 MG CAP PO PRN (08:39)
[2021-10-24] MEDS: HYDROcodone/Acetaminophen 5/325 mg Tablet PO PRN (08:44)
[2021-10-24] MEDS ORDERED: Bumetanide 1 MG TAB PO SCH (09:00)
[2021-10-24 11:54] VITALS: BP 117/74; TEMP 98.4
== END 2021-10-24 15:19 | disposition home or self-care (01) | DRG 291 ==
LOC: ERS 21:04 → NEURO 23:00 → OBSVTOIN 10-22 13:49
PROVIDERS: ADMIT Student in an Organized Health Care Education/Training Program; ATTEND Internal Medicine
PROC: 8E0ZXY6 Isolation (ICD-10-PCS; principal; 2021-10-22)
DX: I11.0 Hypertensive heart disease with heart failure (principal); U07.1 COVID-19; J96.01 Acute respiratory failure with hypoxia; I50.33 Acute on chronic diastolic (congestive) heart failure; J44.1 Chronic obstructive pulmonary disease with (acute) exacerbation; I48.91 Unspecified atrial fibrillation; E87.6 Hypokalemia; D63.8 Anemia in other chronic diseases classified elsewhere; K74.60 Unspecified cirrhosis of liver; Z88.1 Allergy status to other antibiotic agents; Z88.8 Allergy status to other drugs, medicaments and biological substances; Z79.01 Long term (current) use of anticoagulants; Z79.899 Other long term (current) drug therapy; Z79.51 Long term (current) use of inhaled steroids; Z86.718 Personal history of other venous thrombosis and embolism; Z86.711 Personal history of pulmonary embolism; Z98.890 Other specified postprocedural states; Z87.891 Personal history of nicotine dependence
CPT/HCPCS: 36415; 71045; 80048; 80053; 83605; 83735; 83880; 84484; 85025; 93005; 93798; 94640; 96374; 96375; 96376; G0378; J0456; J1940; J2920; J3475; J3480; J7050; J7620

== ENCOUNTER 2021-11-23 18:53 | Emergency (ER) | payer MEDICAID ==
[2021-11-23] MEDS ORDERED: predniSONE 20 MG TAB ONE (19:04)
[2021-11-23 20:02] LABS: #Eosinphils 0.1 thou/uL (0.0-0.7); #Lymphocytes 3.1 thou/uL (1.20-3.40); #Monocytes 0.8 thou/uL (0.11-0.59); #Neutrophils 5.2 thou/uL (1.40-6.50); %Basophils 0.4 % (0.0-1.0); %Eosinophils 1.2 % (0.0-10.0); %Lymphocytes 33.4 % (21.0-51.0); %Monocytes 8.4 % (0.0-10.0); %Neutrophils 56.8 % (42.0-75.0); Hemoglobin 10.7 g/dL (14.0-18.0); Mean Corpuscular Hemoglobin 25.1 pg (27.0-31.0); Mean Corpuscular Volume 78.5 fL (78.0-98.0); Mean Platelet Volume 8.5 fL (7.4-10.4); Platelet Count 240 thou/uL (130-400); RBC Distribution Width 16.7 % (11.5-14.5); Red Blood Cell (RBC) Count 4.26 mill/uL (4.70-6.10); White Blood Cell (WBC) Count 9.2 thou/uL (4.8-10.8)
[2021-11-23] MEDS ORDERED: Magnesium 2 GM/50 ML BAG (IN WATER) ONE (20:17)
[2021-11-23 20:25] LABS: ALT (SGPT) 20 U/L (8-55); AST (SGOT) 21 U/L (5-34); Albumin 4.1 g/dL (3.5-5.0); Alkaline Phosphatase 197 U/L (40-110); Anion Gap 17 mmol/L (10-20); BUN (Urea Nitrogen) 6 mg/dL (8.4-25.7); Bilirubin, Total 0.6 mg/dL (0.2-1.2); Calc. Creatinine Clearance 0 mL/min (70-130); Calcium 9.4 mg/dL (7.8-10.44); Carbon Dioxide 25 mmol/L (22-29); Chloride 100 mmol/L (98-107); Estimated GFR 100; Globulin 3.1 g/dL (2.4-3.5); Glucose 70 mg/dL (70-105); Potassium 4.1 mmol/L (3.5-5.1); Protein, Total 7.2 g/dL (6.0-8.3); Sodium 138 mmol/L (136-145)
== END 2021-11-23 22:10 | disposition home or self-care (01) ==
LOC: ERS 18:53
DX: J44.1 Chronic obstructive pulmonary disease with (acute) exacerbation (principal); R91.8 Other nonspecific abnormal finding of lung field; I11.0 Hypertensive heart disease with heart failure; I50.9 Heart failure, unspecified; Z87.891 Personal history of nicotine dependence; Z79.899 Other long term (current) drug therapy
CPT/HCPCS: 71045; 71275; 80053; 83880; 84484; 85025; 93005; 96365; J3475; J7512; J7620; Q9967

== ENCOUNTER 2021-12-03 15:58 | Emergency (ER) | payer MEDICAID ==
[2021-12-03] MEDS ORDERED: Furosemide 40 MG/4 ML VIAL ONE (17:38)
[2021-12-03] MEDS ORDERED: methylPREDNISolone Sod Succ/PF 125 MG/2 ML VIAL ONE (17:38)
[2021-12-03 17:44] LABS: #Eosinphils 0.1 thou/uL (0.0-0.7); #Lymphocytes 2.1 thou/uL (1.20-3.40); #Monocytes 0.8 thou/uL (0.11-0.59); #Neutrophils 5.1 thou/uL (1.40-6.50); %Basophils 0.6 % (0.0-1.0); %Eosinophils 0.9 % (0.0-10.0); %Lymphocytes 25.6 % (21.0-51.0); %Monocytes 10.2 % (0.0-10.0); %Neutrophils 62.7 % (42.0-75.0); Hemoglobin 10.1 g/dL (14.0-18.0); Mean Corpuscular HGB CONC 31.7 g/dL (32.0-36.0); Mean Corpuscular Hemoglobin 24.5 pg (27.0-31.0); Mean Corpuscular Volume 77.2 fL (78.0-98.0); Mean Platelet Volume 8.7 fL (7.4-10.4); Platelet Count 259 thou/uL (130-400); RBC Distribution Width 16.7 % (11.5-14.5); Red Blood Cell (RBC) Count 4.13 mill/uL (4.70-6.10); White Blood Cell (WBC) Count 8.2 thou/uL (4.8-10.8)
[2021-12-03 18:05] LABS: ALT (SGPT) 17 U/L (8-55); AST (SGOT) 18 U/L (5-34); Albumin 3.9 g/dL (3.5-5.0); Alkaline Phosphatase 139 U/L (40-110); Anion Gap 12 mmol/L (10-20); BUN (Urea Nitrogen) 5 mg/dL (8.4-25.7); Bilirubin, Total 0.6 mg/dL (0.2-1.2); Calc. Creatinine Clearance 0 mL/min (70-130); Calcium 9.4 mg/dL (7.8-10.44); Carbon Dioxide 26 mmol/L (22-29); Chloride 101 mmol/L (98-107); Estimated GFR 100; Globulin 3.1 g/dL (2.4-3.5); Glucose 81 mg/dL (70-105); Lipase 35 U/L (8-78); Magnesium 1.8 mg/dL (1.6-2.6); Potassium 3.7 mmol/L (3.5-5.1); Sodium 135 mmol/L (136-145)
[2021-12-03] MEDS ORDERED: Morphine 4 MG/ML VIAL ONE (18:27)
== END 2021-12-03 19:33 | disposition home or self-care (01) ==
LOC: ERS 15:58
DX: J44.1 Chronic obstructive pulmonary disease with (acute) exacerbation (principal); I11.0 Hypertensive heart disease with heart failure; I50.9 Heart failure, unspecified; Z86.711 Personal history of pulmonary embolism; Z86.718 Personal history of other venous thrombosis and embolism; Z87.891 Personal history of nicotine dependence
CPT/HCPCS: 71045; 80053; 83690; 83735; 83880; 84484; 85025; 93005; 96374; 96375; J1940; J2270; J2930; J7620

== ENCOUNTER 2021-12-08 20:30 | Inpatient (IN) | payer MEDICAID, OTHER ==
[2021-12-08] MEDS ORDERED: Magnesium 2 GM/50 ML BAG (IN WATER) ONE (20:58)
[2021-12-08] MEDS ORDERED: methylPREDNISolone Sod Succ/PF 125 MG/2 ML VIAL ONE (20:58)
[2021-12-08] MEDS ORDERED: Albuterol Sulfate 2.5 mg/0.5 ml Neb ONE ×2 (20:58→21:07)
[2021-12-08 21:16] LABS: #Lymphocytes 1.1 thou/uL (1.20-3.40); #Monocytes 0.5 thou/uL (0.11-0.59); #Neutrophils 9.2 thou/uL (1.40-6.50); %Basophils 0.1 % (0.0-1.0); %Eosinophils 0.1 % (0.0-10.0); %Lymphocytes 10.5 % (21.0-51.0); %Monocytes 4.3 % (0.0-10.0); Hemoglobin 9.9 g/dL (14.0-18.0); Mean Corpuscular HGB CONC 32.2 g/dL (32.0-36.0); Mean Corpuscular Hemoglobin 25.6 pg (27.0-31.0); Mean Corpuscular Volume 79.3 fL (78.0-98.0); Mean Platelet Volume 8.3 fL (7.4-10.4); Platelet Count 305 thou/uL (130-400); RBC Distribution Width 16.9 % (11.5-14.5); Red Blood Cell (RBC) Count 3.88 mill/uL (4.70-6.10); White Blood Cell (WBC) Count 10.8 thou/uL (4.8-10.8)
[2021-12-08 21:39] LABS: ALT (SGPT) 21 U/L (8-55); AST (SGOT) 20 U/L (5-34); Albumin 3.9 g/dL (3.5-5.0); Alkaline Phosphatase 113 U/L (40-110); Anion Gap 20 mmol/L (10-20); BUN (Urea Nitrogen) 9 mg/dL (8.4-25.7); Bilirubin, Total 0.2 mg/dL (0.2-1.2); Calc. Creatinine Clearance 0 mL/min (70-130); Carbon Dioxide 17 mmol/L (22-29); Chloride 102 mmol/L (98-107); Estimated GFR 100; Globulin 2.7 g/dL (2.4-3.5); Glucose 158 mg/dL (70-105); Protein, Total 6.6 g/dL (6.0-8.3); Sodium 135 mmol/L (136-145)
[2021-12-08] MEDS ORDERED: Ondansetron PF 4 MG/2 ML Vial IVP PRN (23:38)
[2021-12-09 00:18] LABS: Lactic Acid 2.9 mmol/L (0.5-2.2)
[2021-12-09 00:51] VITALS: BMI 26.6
[2021-12-09] MEDS: methylPREDNISolone Sod Succ 40 MG VIAL IVP SCH ×3 (05:25→21:12)
[2021-12-09 06:55] LABS: #Lymphocytes 0.5 thou/uL (1.20-3.40); #Monocytes 0.1 thou/uL (0.11-0.59); %Eosinophils 0.1 % (0.0-10.0); %Lymphocytes 8.1 % (21.0-51.0); %Monocytes 1.2 % (0.0-10.0); %Neutrophils 90.7 % (42.0-75.0); Hemoglobin 8.9 g/dL (14.0-18.0); Mean Corpuscular Hemoglobin 24.8 pg (27.0-31.0); Mean Corpuscular Volume 77.7 fL (78.0-98.0); Mean Platelet Volume 8.6 fL (7.4-10.4); Platelet Count 273 thou/uL (130-400); Red Blood Cell (RBC) Count 3.58 mill/uL (4.70-6.10); White Blood Cell (WBC) Count 6.6 thou/uL (4.8-10.8)
[2021-12-09] MEDS: Mometasone 200 MCG/Formoterol 5 MCG 120 PUFF INHALER INH SCH ×2 (07:03→19:07)
[2021-12-09 07:13] LABS: Lactic Acid 3.1 mmol/L (0.5-2.2)
[2021-12-09 07:16] LABS: Anion Gap 15 mmol/L (10-20); BUN (Urea Nitrogen) 9 mg/dL (8.4-25.7); Calc. Creatinine Clearance 132 mL/min (70-130); Carbon Dioxide 22 mmol/L (22-29); Chloride 106 mmol/L (98-107); Estimated GFR 102; Glucose 176 mg/dL (70-105); Potassium 3.8 mmol/L (3.5-5.1); Sodium 139 mmol/L (136-145)
[2021-12-09] MEDS: Amlodipine 5 MG TAB PO SCH (08:41)
[2021-12-09] MEDS: Acetaminophen 500 MG TAB PO PRN (08:41)
[2021-12-09] MEDS: Spironolactone 100 MG TAB PO SCH (08:42)
[2021-12-09] MEDS: Apixaban 5 MG TAB PO SCH ×2 (08:42→21:06)
[2021-12-09] MEDS: traMADol HCl 50 MG TAB PO PRN ×2 (12:09→21:10)
[2021-12-09] MEDS ORDERED: Benzonatate 100 MG CAP PO PRN (12:49)
[2021-12-10] MEDS: VANCOMYCIN 2 GRAM/500 ML BAG 2 GM in Premix Bag 1 BAG IVPB SCH ×2 (00:40→12:49)
[2021-12-10] MEDS: methylPREDNISolone Sod Succ 40 MG VIAL IVP SCH ×2 (06:09→21:05)
[2021-12-10] MEDS: Mometasone 200 MCG/Formoterol 5 MCG 120 PUFF INHALER INH SCH ×2 (06:41→18:13)
[2021-12-10 06:54] LABS: #Lymphocytes 0.5 thou/uL (1.20-3.40); #Monocytes 0.4 thou/uL (0.11-0.59); #Neutrophils 11.5 thou/uL (1.40-6.50); %Eosinophils 0.1 % (0.0-10.0); %Lymphocytes 4.1 % (21.0-51.0); %Monocytes 3.4 % (0.0-10.0); %Neutrophils 92.5 % (42.0-75.0); Hemoglobin 9.2 g/dL (14.0-18.0); Mean Corpuscular HGB CONC 31.3 g/dL (32.0-36.0); Mean Corpuscular Hemoglobin 24.7 pg (27.0-31.0); Mean Platelet Volume 7.9 fL (7.4-10.4); Platelet Count 316 thou/uL (130-400); Red Blood Cell (RBC) Count 3.71 mill/uL (4.70-6.10); White Blood Cell (WBC) Count 12.4 thou/uL (4.8-10.8)
[2021-12-10 07:19] LABS: Anion Gap 16 mmol/L (10-20); BUN (Urea Nitrogen) 13 mg/dL (8.4-25.7); Calc. Creatinine Clearance 136 mL/min (70-130); Calcium 9.1 mg/dL (7.8-10.44); Carbon Dioxide 20 mmol/L (22-29); Chloride 106 mmol/L (98-107); Estimated GFR 103; Glucose 142 mg/dL (70-105); Sodium 138 mmol/L (136-145)
[2021-12-10] MEDS ORDERED: Vancomycin 1 GM in Premix Bag 1 BAG IVPB SCH (09:00)
[2021-12-10] MEDS: Apixaban 5 MG TAB PO SCH ×2 (09:11→21:05)
[2021-12-10] MEDS: Amlodipine 5 MG TAB PO SCH (09:11)
[2021-12-10] MEDS: Spironolactone 100 MG TAB PO SCH (09:12)
[2021-12-10] MEDS ORDERED: methylPREDNISolone Sod Succ 40 MG VIAL IVP SCH (13:00)
[2021-12-10] MEDS: traMADol HCl 50 MG TAB PO PRN (21:20)
[2021-12-11] MEDS: VANCOMYCIN 2 GRAM/500 ML BAG 2 GM in Premix Bag 1 BAG IVPB SCH (01:15)
[2021-12-11] MEDS: Mometasone 200 MCG/Formoterol 5 MCG 120 PUFF INHALER INH SCH ×2 (07:08→19:20)
[2021-12-11 07:37] LABS: #Lymphocytes 0.7 thou/uL (1.20-3.40); #Monocytes 0.6 thou/uL (0.11-0.59); #Neutrophils 14.3 thou/uL (1.40-6.50); %Basophils 0.1 % (0.0-1.0); %Eosinophils 0.2 % (0.0-10.0); %Lymphocytes 4.3 % (21.0-51.0); %Monocytes 3.7 % (0.0-10.0); %Neutrophils 91.7 % (42.0-75.0); Hemoglobin 9.4 g/dL (14.0-18.0); Mean Corpuscular HGB CONC 32.1 g/dL (32.0-36.0); Mean Corpuscular Hemoglobin 25.4 pg (27.0-31.0); Mean Corpuscular Volume 79.1 fL (78.0-98.0); Mean Platelet Volume 8.2 fL (7.4-10.4); Platelet Count 296 thou/uL (130-400); RBC Distribution Width 16.8 % (11.5-14.5); Red Blood Cell (RBC) Count 3.68 mill/uL (4.70-6.10); White Blood Cell (WBC) Count 15.6 thou/uL (4.8-10.8)
[2021-12-11 07:53] LABS: Anion Gap 15 mmol/L (10-20); BUN (Urea Nitrogen) 14 mg/dL (8.4-25.7); Calc. Creatinine Clearance 140 mL/min (70-130); Calcium 8.9 mg/dL (7.8-10.44); Carbon Dioxide 19 mmol/L (22-29); Chloride 105 mmol/L (98-107); Estimated GFR 104; Glucose 128 mg/dL (70-105); Potassium 4.4 mmol/L (3.5-5.1); Sodium 135 mmol/L (136-145)
[2021-12-11] MEDS: Spironolactone 100 MG TAB PO SCH (08:20)
[2021-12-11] MEDS: Amlodipine 5 MG TAB PO SCH (08:21)
[2021-12-11] MEDS: methylPREDNISolone Sod Succ 40 MG VIAL IVP SCH ×2 (08:24→21:49)
[2021-12-11] MEDS: Apixaban 5 MG TAB PO SCH ×2 (08:24→21:47)
[2021-12-11] MEDS ORDERED: guaiFENesin/DM ER PO SCH ×2 (11:30)
[2021-12-11 11:48] LABS: Vancomycin, Trough 28.2 ug/mL
[2021-12-11] MEDS: traMADol HCl 50 MG TAB PO PRN (21:46)
[2021-12-11] MEDS: Montelukast Sodium 10 mg Tablet PO SCH (21:46)
[2021-12-11] MEDS: guaiFENesin/DM ER PO SCH (21:47)
[2021-12-12] MEDS: Mometasone 200 MCG/Formoterol 5 MCG 120 PUFF INHALER INH SCH ×2 (07:32→18:47)
[2021-12-12] MEDS: Amlodipine 5 MG TAB PO SCH (08:47)
[2021-12-12] MEDS: Spironolactone 100 MG TAB PO SCH (08:47)
[2021-12-12] MEDS: Apixaban 5 MG TAB PO SCH ×2 (08:48→20:29)
[2021-12-12] MEDS: traMADol HCl 50 MG TAB PO PRN ×3 (08:48→21:54)
[2021-12-12] MEDS: guaiFENesin/DM ER PO SCH ×2 (08:49→20:30)
[2021-12-12] MEDS: methylPREDNISolone Sod Succ 40 MG VIAL IVP SCH ×2 (08:49→20:29)
[2021-12-12] MEDS: Montelukast Sodium 10 mg Tablet PO SCH (20:30)
[2021-12-13] MEDS: Mometasone 200 MCG/Formoterol 5 MCG 120 PUFF INHALER INH SCH ×2 (06:38→19:21)
[2021-12-13] MEDS: Amlodipine 5 MG TAB PO SCH (07:58)
[2021-12-13] MEDS: guaiFENesin/DM ER PO SCH ×2 (07:59→20:54)
[2021-12-13] MEDS: Apixaban 5 MG TAB PO SCH ×2 (07:59→20:54)
[2021-12-13] MEDS: Spironolactone 100 MG TAB PO SCH (07:59)
[2021-12-13] MEDS: methylPREDNISolone Sod Succ 40 MG VIAL IVP SCH ×2 (08:03→20:54)
[2021-12-13] MEDS ORDERED: Digoxin 0.5 MG/2 ML AMP SLOW IVP SCH (09:15)
[2021-12-13 10:08] LABS: Anion Gap 14 mmol/L (10-20); BUN (Urea Nitrogen) 17 mg/dL (8.4-25.7); Calc. Creatinine Clearance 124 mL/min (70-130); Calcium 9.3 mg/dL (7.8-10.44); Carbon Dioxide 23 mmol/L (22-29); Chloride 101 mmol/L (98-107); Estimated GFR 101; Glucose 196 mg/dL (70-105); Magnesium 2.5 mg/dL (1.6-2.6); Potassium 4.3 mmol/L (3.5-5.1); Sodium 134 mmol/L (136-145)
[2021-12-13 10:12] LABS: Troponin I Less than 0.010 ng/mL (< 0.028)
[2021-12-13 13:01] LABS: Troponin I Less than 0.010 ng/mL (< 0.028)
[2021-12-13 15:30] LABS: Troponin I Less than 0.010 ng/mL (< 0.028)
[2021-12-13] MEDS: Montelukast Sodium 10 mg Tablet PO SCH (20:53)
[2021-12-13] MEDS: traMADol HCl 50 MG TAB PO PRN (21:06)
[2021-12-14] MEDS: Mometasone 200 MCG/Formoterol 5 MCG 120 PUFF INHALER INH SCH ×2 (07:09→18:31)
[2021-12-14] MEDS: Spironolactone 100 MG TAB PO SCH (09:38)
[2021-12-14] MEDS: Amlodipine 5 MG TAB PO SCH (09:39)
[2021-12-14] MEDS: Apixaban 5 MG TAB PO SCH ×2 (09:39→22:15)
[2021-12-14] MEDS: guaiFENesin/DM ER PO SCH ×2 (09:40→22:16)
[2021-12-14] MEDS: traMADol HCl 50 MG TAB PO PRN ×2 (09:41→22:19)
[2021-12-14] MEDS ORDERED: predniSONE 20 MG TAB PO SCH (09:45)
[2021-12-14] MEDS: methylPREDNISolone Sod Succ 40 MG VIAL IVP SCH (09:49)
[2021-12-14] MEDS: Montelukast Sodium 10 mg Tablet PO SCH (22:16)
[2021-12-15 04:51] LABS: Phosphorus 2.7 mg/dL (2.3-4.7)
[2021-12-15 04:56] LABS: Anion Gap 13 mmol/L (10-20); BUN (Urea Nitrogen) 18 mg/dL (8.4-25.7); Calc. Creatinine Clearance 138 mL/min (70-130); Calcium 8.7 mg/dL (7.8-10.44); Carbon Dioxide 22 mmol/L (22-29); Chloride 100 mmol/L (98-107); Estimated GFR 104; Glucose 115 mg/dL (70-105); Magnesium 2.6 mg/dL (1.6-2.6); Potassium 4.2 mmol/L (3.5-5.1); Sodium 131 mmol/L (136-145)
[2021-12-15] MEDS: Mometasone 200 MCG/Formoterol 5 MCG 120 PUFF INHALER INH SCH (07:19)
[2021-12-15] MEDS ORDERED: predniSONE 20 MG TAB PO SCH (08:00)
[2021-12-15 08:37] VITALS: TEMP 98.8
[2021-12-15] MEDS: guaiFENesin/DM ER PO SCH (10:16)
[2021-12-15] MEDS: Apixaban 5 MG TAB PO SCH (10:16)
[2021-12-15] MEDS: Spironolactone 100 MG TAB PO SCH (10:16)
[2021-12-15] MEDS: Amlodipine 5 MG TAB PO SCH (10:16)
[2021-12-15 12:00] VITALS: BP 134/64
[2021-12-15] MEDS ORDERED: Bisacodyl 10 MG SUPP PR PRN (13:04)
[2021-12-15] MEDS ORDERED: Bisacodyl 5 MG TAB PO PRN (13:04)
[2021-12-15] MEDS ORDERED: Senokot S 8.6-50 MG TAB PO PRN (13:04)
[2021-12-15] MEDS: traMADol HCl 50 MG TAB PO PRN (14:48)
[2021-12-15] MEDS: Acetaminophen 500 MG TAB PO PRN (14:48)
== END 2021-12-15 16:30 | disposition home or self-care (01) | DRG 871 ==
LOC: ERS 20:30 → T4-B 23:01 → 2NO 12-13 12:03
PROVIDERS: ADMIT Family Medicine; ATTEND Family Medicine
DX: A41.9 Sepsis, unspecified organism (principal); J96.21 Acute and chronic respiratory failure with hypoxia; J44.1 Chronic obstructive pulmonary disease with (acute) exacerbation; E87.2 Acidosis; I50.32 Chronic diastolic (congestive) heart failure; I47.1 Supraventricular tachycardia; Z20.822 Contact with and (suspected) exposure to COVID-19; K70.30 Alcoholic cirrhosis of liver without ascites; D64.9 Anemia, unspecified; I48.0 Paroxysmal atrial fibrillation; I11.0 Hypertensive heart disease with heart failure; F10.10 Alcohol abuse, uncomplicated; Z28.82 Immunization not carried out because of caregiver refusal; Z86.718 Personal history of other venous thrombosis and embolism; Z86.711 Personal history of pulmonary embolism; Z87.891 Personal history of nicotine dependence; Z88.6 Allergy status to analgesic agent; Z88.1 Allergy status to other antibiotic agents; Z79.01 Long term (current) use of anticoagulants; Z79.51 Long term (current) use of inhaled steroids; Z79.899 Other long term (current) drug therapy
CPT/HCPCS: 36415; 36416; 71045; 76705; 80048; 80053; 80202; 83605; 83735; 83880; 84100; 84443; 84484; 85025; 87040; 87077; 87186; 93005; 93010; 94640; 94664; 96361; 96365; 96366; 96375; J1160; J1956; J2405; J2920; J2930; J3370; J3475; J7512; J7611; J7620; U0003; U0005

== ENCOUNTER 2021-12-24 19:29 | Observation (INO) | payer OTHER ==
[2021-12-24 20:19] LABS: #Lymphocytes 0.9 thou/uL (1.20-3.40); #Monocytes 0.5 thou/uL (0.11-0.59); #Neutrophils 9.8 thou/uL (1.40-6.50); %Eosinophils 0.2 % (0.0-10.0); %Lymphocytes 7.8 % (21.0-51.0); %Monocytes 4.7 % (0.0-10.0); %Neutrophils 87.3 % (42.0-75.0); Hemoglobin 9.7 g/dL (14.0-18.0); Mean Corpuscular HGB CONC 32.5 g/dL (32.0-36.0); Mean Corpuscular Hemoglobin 25.1 pg (27.0-31.0); Mean Corpuscular Volume 77.3 fL (78.0-98.0); Mean Platelet Volume 8.9 fL (7.4-10.4); Platelet Count 215 thou/uL (130-400); RBC Distribution Width 18.3 % (11.5-14.5); Red Blood Cell (RBC) Count 3.88 mill/uL (4.70-6.10); White Blood Cell (WBC) Count 11.3 thou/uL (4.8-10.8)
[2021-12-24 20:39] LABS: ALT (SGPT) 49 U/L (8-55); AST (SGOT) 28 U/L (5-34); Albumin 3.7 g/dL (3.5-5.0); Alkaline Phosphatase 154 U/L (40-110); Anion Gap 16 mmol/L (10-20); BUN (Urea Nitrogen) 9 mg/dL (8.4-25.7); Bilirubin, Total 0.6 mg/dL (0.2-1.2); Calc. Creatinine Clearance 0 mL/min (70-130); Carbon Dioxide 19 mmol/L (22-29); Chloride 103 mmol/L (98-107); Estimated GFR 98; Globulin 2.9 g/dL (2.4-3.5); Glucose 113 mg/dL (70-105); Potassium 4.2 mmol/L (3.5-5.1); Protein, Total 6.6 g/dL (6.0-8.3); Sodium 134 mmol/L (136-145)
[2021-12-24] MEDS ORDERED: Acetaminophen 325 MG TAB PO PRN (23:30)
[2021-12-24] MEDS ORDERED: Ondansetron PF 4 MG/2 ML Vial IVP PRN (23:30)
[2021-12-24] MEDS ORDERED: Senokot S 8.6-50 MG TAB PO PRN (23:30)
[2021-12-24] MEDS ORDERED: Calcium Carbonate 500 MG ChewTAB PO PRN (23:30)
[2021-12-24] MEDS ORDERED: Bisacodyl 5 MG TAB PO PRN (23:30)
[2021-12-24] MEDS ORDERED: Bisacodyl 10 MG SUPP PR PRN (23:30)
[2021-12-25] MEDS ORDERED: methylPREDNISolone Sod Succ/PF 125 MG/2 ML VIAL ONE (00:02)
[2021-12-25] MEDS ORDERED: Morphine 4 MG/ML VIAL SLOW IVP PRN (00:51)
[2021-12-25] MEDS: Lidocaine 5% Patch TD SCH (02:34)
[2021-12-25 03:05] LABS: SARS-CoV-2 NAA Rapid Test Not Detected (NotDetected)
[2021-12-25] MEDS ORDERED: Ondansetron PF 4 MG/2 ML Vial ONE (04:14)
[2021-12-25] MEDS: Mometasone 200 MCG/Formoterol 5 MCG 120 PUFF INHALER INH SCH ×3 (07:08→19:03)
[2021-12-25 07:21] LABS: #Lymphocytes 0.3 thou/uL (1.20-3.40); #Monocytes 0.1 thou/uL (0.11-0.59); #Neutrophils 8.3 thou/uL (1.40-6.50); %Eosinophils 0.2 % (0.0-10.0); %Lymphocytes 3.4 % (21.0-51.0); %Neutrophils 95.4 % (42.0-75.0); Hemoglobin 9.2 g/dL (14.0-18.0); Mean Corpuscular HGB CONC 31.1 g/dL (32.0-36.0); Mean Corpuscular Hemoglobin 24.3 pg (27.0-31.0); Mean Platelet Volume 8.7 fL (7.4-10.4); Platelet Count 191 thou/uL (130-400); RBC Distribution Width 18.2 % (11.5-14.5); White Blood Cell (WBC) Count 8.7 thou/uL (4.8-10.8)
[2021-12-25 07:37] LABS: INR-International Normal Ratio 1.1; Prothrombin Time 14.2 sec (12.0-14.7)
[2021-12-25] MEDS ORDERED: Albuterol 200 PUFF (6.7GM INHALER) INH PRN (07:37)
[2021-12-25] MEDS ORDERED: Benzonatate 100 MG CAP PO PRN (07:37)
[2021-12-25 07:38] LABS: PTT 29.4 sec (22.9-36.1)
[2021-12-25 07:43] LABS: ALT (SGPT) 46 U/L (8-55); AST (SGOT) 24 U/L (5-34); Albumin 3.5 g/dL (3.5-5.0); Alkaline Phosphatase 136 U/L (40-110); Anion Gap 13 mmol/L (10-20); BUN (Urea Nitrogen) 13 mg/dL (8.4-25.7); Bilirubin, Direct 0.2 mg/dL (0.1-0.3); Bilirubin, Total 0.3 mg/dL (0.2-1.2); Calc. Creatinine Clearance 0 mL/min (70-130); Calcium 8.9 mg/dL (7.8-10.44); Carbon Dioxide 21 mmol/L (22-29); Cardiac Risk 2.3 (Less than 4.5); Chloride 100 mmol/L (98-107); Cholesterol 166 mg/dl (< 200 Desired); Estimated GFR 101; Glucose 179 mg/dL (70-105); HDL Cholesterol 72 mg/dL (>60 Neg Risk); LDL Cholesterol, Calculated 86 mg/dL; Magnesium 1.9 mg/dL (1.6-2.6); Potassium 4.1 mmol/L (3.5-5.1); Protein, Total 6.2 g/dL (6.0-8.3); Sodium 130 mmol/L (136-145); Triglycerides 38 mg/dL (Less than 150)
[2021-12-25] MEDS ORDERED: Albuterol Sulfate 2.5 mg/3 ml Neb NEB PRN (07:49)
[2021-12-25 07:52] LABS: Hemoglobin A1c 5.6 % (4.0-6.0)
[2021-12-25 07:55] LABS: Thyroid Stimulating Hormone 0.209 uIU/mL (0.35-4.94)
[2021-12-25] MEDS ORDERED: Amlodipine 5 MG TAB ONE (08:19)
[2021-12-25] MEDS ORDERED: Diltiazem 125 MG/25 ML ONE (08:20)
[2021-12-25] MEDS ORDERED: Famotidine 20 MG TAB ONE (08:20)
[2021-12-25] MEDS ORDERED: predniSONE 20 MG TAB ONE (08:21)
[2021-12-25] MEDS ORDERED: Morphine 4 MG/ML VIAL ONE (08:40)
[2021-12-25] MEDS: Spironolactone 100 MG TAB PO SCH (08:48)
[2021-12-25] MEDS: Amlodipine 5 MG TAB PO SCH (08:48)
[2021-12-25] MEDS: Famotidine 20 MG TAB PO SCH ×2 (08:49→20:18)
[2021-12-25] MEDS: predniSONE 20 MG TAB PO SCH (08:50)
[2021-12-25] MEDS: Famotidine/PF 20 mg/2ml Vial SLOW IVP SCH ×2 (08:57→20:18)
[2021-12-25 09:59] VITALS: BMI 26.4
[2021-12-25 10:29] LABS: Legionella Urinary Ag Negative (Negative)
[2021-12-25 10:30] LABS: Strep pneumo Urine Ag NEGATIVE (NEGATIVE)
[2021-12-25] MEDS: Apixaban 5 MG TAB PO SCH ×2 (11:01→20:18)
[2021-12-25] MEDS: Transdermal Patch Removal TOP SCH (15:04)
[2021-12-25] MEDS: traMADol HCl 50 MG TAB PO PRN (15:10)
[2021-12-25 19:28] LABS: SARS-CoV-2 NAA Rapid Test Not Detected (NotDetected)
[2021-12-25] MEDS ORDERED: Montelukast Sodium 10 mg Tablet PO SCH (21:00)
[2021-12-26] MEDS: Lidocaine 5% Patch TD SCH ×2 (01:19→14:16)
[2021-12-26] MEDS: traMADol HCl 50 MG TAB PO PRN (04:23)
[2021-12-26] MEDS: Mometasone 200 MCG/Formoterol 5 MCG 120 PUFF INHALER INH SCH ×2 (06:49→06:50)
[2021-12-26 07:03] LABS: #Lymphocytes 0.9 thou/uL (1.20-3.40); #Monocytes 0.9 thou/uL (0.11-0.59); #Neutrophils 13.3 thou/uL (1.40-6.50); %Basophils 0.2 % (0.0-1.0); %Eosinophils 0.2 % (0.0-10.0); %Lymphocytes 5.7 % (21.0-51.0); %Monocytes 5.8 % (0.0-10.0); Hemoglobin 9.7 g/dL (14.0-18.0); Mean Corpuscular HGB CONC 31.4 g/dL (32.0-36.0); Mean Corpuscular Hemoglobin 24.8 pg (27.0-31.0); Mean Corpuscular Volume 78.7 fL (78.0-98.0); Mean Platelet Volume 8.4 fL (7.4-10.4); Platelet Count 221 thou/uL (130-400); RBC Distribution Width 18.4 % (11.5-14.5); Red Blood Cell (RBC) Count 3.91 mill/uL (4.70-6.10); White Blood Cell (WBC) Count 15.1 thou/uL (4.8-10.8)
[2021-12-26 07:26] LABS: Anion Gap 13 mmol/L (10-20); BUN (Urea Nitrogen) 15 mg/dL (8.4-25.7); Calc. Creatinine Clearance 138 mL/min (70-130); Calcium 9.3 mg/dL (7.8-10.44); Carbon Dioxide 22 mmol/L (22-29); Chloride 102 mmol/L (98-107); Estimated GFR 104; Glucose 87 mg/dL (70-105); Potassium 4.3 mmol/L (3.5-5.1); Sodium 133 mmol/L (136-145)
[2021-12-26] MEDS: Amlodipine 5 MG TAB PO SCH (08:02)
[2021-12-26] MEDS: Apixaban 5 MG TAB PO SCH (08:02)
[2021-12-26] MEDS: Famotidine/PF 20 mg/2ml Vial SLOW IVP SCH (08:03)
[2021-12-26] MEDS: Spironolactone 100 MG TAB PO SCH (08:03)
[2021-12-26] MEDS: Famotidine 20 MG TAB PO SCH (08:03)
[2021-12-26] MEDS: predniSONE 20 MG TAB PO SCH (08:03)
[2021-12-26] MEDS: Transdermal Patch Removal TOP SCH (14:22)
[2021-12-26 15:52] VITALS: BP 129/61; TEMP 97.4
== END 2021-12-26 18:30 | disposition home or self-care (01) ==
LOC: ERS 19:29 → ERHOLD 23:36 → 2SW 12-25 14:55
PROVIDERS: ADMIT Family Medicine; ATTEND Nurse Practitioner Acute Care
DX: J44.1 Chronic obstructive pulmonary disease with (acute) exacerbation (principal); S32.010A Wedge compression fracture of first lumbar vertebra, initial encounter for closed fracture; S32.040A Wedge compression fracture of fourth lumbar vertebra, initial encounter for closed fracture; R78.81 Bacteremia; K74.60 Unspecified cirrhosis of liver; I11.0 Hypertensive heart disease with heart failure; I50.32 Chronic diastolic (congestive) heart failure; E05.90 Thyrotoxicosis, unspecified without thyrotoxic crisis or storm; I48.91 Unspecified atrial fibrillation; M51.34 Other intervertebral disc degeneration, thoracic region; M51.36 Other intervertebral disc degeneration, lumbar region; M81.0 Age-related osteoporosis without current pathological fracture; J61 Pneumoconiosis due to asbestos and other mineral fibers; F12.11 Cannabis abuse, in remission; Z86.711 Personal history of pulmonary embolism; Z86.718 Personal history of other venous thrombosis and embolism; Z87.891 Personal history of nicotine dependence; Z79.01 Long term (current) use of anticoagulants; Z79.899 Other long term (current) drug therapy; Z88.1 Allergy status to other antibiotic agents; Z88.8 Allergy status to other drugs, medicaments and biological substances; Z20.822 Contact with and (suspected) exposure to COVID-19; W19.XXXA Unspecified fall, initial encounter
CPT/HCPCS: 36415; 70450; 71045; 71275; 72125; 74177; 80048; 80053; 80061; 80076; 83036; 83735; 83880; 84439; 84443; 84481; 84484; 85025; 85610; 85730; 87040; 87077; 87081; 87149; 87186; 87449; 87899; 93005; 96366; 96374; 96375; G0378; J1956; J2270; J2405; J2930; J7512; J7620; Q9967; S0028; U0002

== ENCOUNTER 2022-01-14 23:48 | Inpatient (IN) | payer OTHER ==
[2022-01-15 01:24] LABS: #Basophils 0.1 thou/uL (0.0-0.2); #Eosinphils 0.1 thou/uL (0.0-0.7); #Lymphocytes 2.4 thou/uL (1.20-3.40); #Monocytes 1.3 thou/uL (0.11-0.59); #Neutrophils 12.5 thou/uL (1.40-6.50); %Basophils 0.4 % (0.0-1.0); %Eosinophils 0.6 % (0.0-10.0); %Lymphocytes 14.6 % (21.0-51.0); %Monocytes 7.7 % (0.0-10.0); %Neutrophils 76.6 % (42.0-75.0); Mean Corpuscular HGB CONC 31.7 g/dL (32.0-36.0); Mean Corpuscular Hemoglobin 24.7 pg (27.0-31.0); Mean Corpuscular Volume 77.8 fL (78.0-98.0); Mean Platelet Volume 8.8 fL (7.4-10.4); Platelet Count 234 thou/uL (130-400); RBC Distribution Width 17.8 % (11.5-14.5); Red Blood Cell (RBC) Count 4.46 mill/uL (4.70-6.10); White Blood Cell (WBC) Count 16.3 thou/uL (4.8-10.8)
[2022-01-15 01:36] LABS: ALT (SGPT) 26 U/L (8-55); AST (SGOT) 19 U/L (5-34); Albumin 4.2 g/dL (3.5-5.0); Alkaline Phosphatase 112 U/L (40-110); Anion Gap 16 mmol/L (10-20); BUN (Urea Nitrogen) 8 mg/dL (8.4-25.7); Bilirubin, Total 0.5 mg/dL (0.2-1.2); Calc. Creatinine Clearance 0 mL/min (70-130); Calcium 9.4 mg/dL (7.8-10.44); Carbon Dioxide 20 mmol/L (22-29); Chloride 101 mmol/L (98-107); Estimated GFR 100; Glucose 68 mg/dL (70-105); Potassium 3.8 mmol/L (3.5-5.1); Protein, Total 7.2 g/dL (6.0-8.3); Sodium 133 mmol/L (136-145)
[2022-01-15] MEDS ORDERED: Magnesium 2 GM/50 ML BAG (IN WATER) ONE (04:33)
[2022-01-15] MEDS ORDERED: methylPREDNISolone Sod Succ/PF 125 MG/2 ML VIAL ONE (04:33)
[2022-01-15] MEDS ORDERED: Acetaminophen 325 MG TAB PO PRN (05:31)
[2022-01-15] MEDS ORDERED: Acetaminophen 650 MG Suppository PR PRN (05:31)
[2022-01-15] MEDS ORDERED: Ondansetron ODT 4 MG TAB PO PRN (05:31)
[2022-01-15] MEDS ORDERED: Ondansetron PF 4 MG/2 ML Vial IVP PRN (05:31)
[2022-01-15] MEDS ORDERED: Furosemide 40 MG/4 ML VIAL SLOW IVP SCH (06:15)
[2022-01-15] MEDS ORDERED: Electrolyte Replacement Protocol 1 EACH FS SCH (06:15)
[2022-01-15] MEDS ORDERED: traMADol HCl 50 MG TAB PO PRN (08:00)
[2022-01-15] MEDS ORDERED: Enoxaparin Sodium 40 MG/0.4 ML SYRINGE SC SCH (09:00)
[2022-01-15] MEDS ORDERED: Spironolactone 100 MG TAB PO SCH (09:00)
[2022-01-15] MEDS ORDERED: DILTIAZEM HCL 120 MG PO SCH (09:00)
[2022-01-15] MEDS: Apixaban 5 MG TAB PO SCH ×2 (09:27→20:22)
[2022-01-15] MEDS: Amlodipine 5 MG TAB PO SCH (09:27)
[2022-01-15 09:58] VITALS: BMI 26.2
[2022-01-15] MEDS ORDERED: Spironolactone 25 MG TAB PO SCH (12:15)
[2022-01-15] MEDS: traMADol HCl 50 MG TAB PO PRN ×2 (12:54→20:23)
[2022-01-15] MEDS: Mometasone 200 MCG/Formoterol 5 MCG 120 PUFF INHALER INH SCH (19:03)
[2022-01-15] MEDS: Montelukast Sodium 10 mg Tablet PO SCH (20:22)
[2022-01-16 06:54] LABS: Calcium 9.2 mg/dL (7.8-10.44); Chloride 103 mmol/L (98-107); Potassium 5.3 mmol/L (3.5-5.1); Sodium 131 mmol/L (136-145)
[2022-01-16 06:55] LABS: Glucose 116 mg/dL (70-105)
[2022-01-16 06:56] LABS: Carbon Dioxide 15 mmol/L (22-29)
[2022-01-16 06:58] LABS: Calc. Creatinine Clearance 130 mL/min (70-130); Estimated GFR 102
[2022-01-16 06:59] LABS: BUN (Urea Nitrogen) 14 mg/dL (8.4-25.7)
[2022-01-16 07:00] LABS: Magnesium 2.2 mg/dL (1.6-2.6)
[2022-01-16 07:17] LABS: #Lymphocytes 0.8 thou/uL (1.20-3.40); #Monocytes 0.6 thou/uL (0.11-0.59); #Neutrophils 14.2 thou/uL (1.40-6.50); %Eosinophils 0.2 % (0.0-10.0); %Lymphocytes 4.9 % (21.0-51.0); %Monocytes 4.1 % (0.0-10.0); %Neutrophils 90.8 % (42.0-75.0); Hemoglobin 9.8 g/dL (14.0-18.0); Mean Corpuscular HGB CONC 30.9 g/dL (32.0-36.0); Mean Corpuscular Hemoglobin 24.1 pg (27.0-31.0); Mean Platelet Volume 8.9 fL (7.4-10.4); Platelet Count 224 thou/uL (130-400); RBC Distribution Width 18.1 % (11.5-14.5); Red Blood Cell (RBC) Count 4.08 mill/uL (4.70-6.10); White Blood Cell (WBC) Count 15.6 thou/uL (4.8-10.8)
[2022-01-16 07:27] LABS: Anion Gap 18 mmol/L (10-20)
[2022-01-16] MEDS: Mometasone 200 MCG/Formoterol 5 MCG 120 PUFF INHALER INH SCH ×2 (07:29→18:27)
[2022-01-16] MEDS: Apixaban 5 MG TAB PO SCH (08:35)
[2022-01-16] MEDS: Spironolactone 100 MG TAB PO SCH (08:35)
[2022-01-16] MEDS: Amlodipine 5 MG TAB PO SCH (08:35)
[2022-01-16] MEDS: traMADol HCl 50 MG TAB PO PRN ×2 (08:46→18:06)
[2022-01-16] MEDS ORDERED: methylPREDNISolone Sod Succ 40 MG VIAL IVP SCH (09:00)
[2022-01-16 11:58] LABS: Anion Gap 16 mmol/L (10-20); BUN (Urea Nitrogen) 13 mg/dL (8.4-25.7); Calc. Creatinine Clearance 127 mL/min (70-130); Calcium 9.5 mg/dL (7.8-10.44); Carbon Dioxide 22 mmol/L (22-29); Chloride 101 mmol/L (98-107); Estimated GFR 102; Glucose 98 mg/dL (70-105); Potassium 4.7 mmol/L (3.5-5.1); Sodium 134 mmol/L (136-145)
[2022-01-16] MEDS ORDERED: Polyethylene Glycol 3350 17 GM Packet PO SCH (12:00)
[2022-01-16] MEDS ORDERED: Pantoprazole 40 MG VIAL IVP SCH (12:15)
[2022-01-16] MEDS ORDERED: Octreotide Acetate 50 MCG in Sodium Chloride 0.9% 50 ML IVPB SCH ×2 (12:15→12:45)
[2022-01-16] MEDS ORDERED: Octreotide Acetate 1,250 MCG in Sodium Chloride 0.9% 250 ML 250 ML IVPB SCH (12:15)
[2022-01-16 15:47] LABS: Legionella Urinary Ag Negative (Negative)
[2022-01-16 15:48] LABS: Strep pneumo Urine Ag NEGATIVE (NEGATIVE)
[2022-01-16 18:21] LABS: Hemoglobin 10.8 g/dL (14.0-18.0)
[2022-01-16 18:40] LABS: INR-International Normal Ratio 1.2; PTT 29.7 sec (22.9-36.1); Prothrombin Time 15.2 sec (12.0-14.7)
[2022-01-16] MEDS: Pantoprazole 40 MG VIAL IVP SCH (20:15)
[2022-01-16] MEDS: Senokot S 8.6-50 MG TAB PO SCH (20:16)
[2022-01-16] MEDS: Montelukast Sodium 10 mg Tablet PO SCH (20:16)
[2022-01-16] MEDS: methylPREDNISolone Sod Succ 40 MG VIAL IVP SCH (20:16)
[2022-01-17] MEDS: traMADol HCl 50 MG TAB PO PRN ×2 (05:28→20:31)
[2022-01-17] MEDS: Mometasone 200 MCG/Formoterol 5 MCG 120 PUFF INHALER INH SCH ×2 (06:58→18:34)
[2022-01-17 07:01] LABS: Anion Gap 17 mmol/L (10-20); BUN (Urea Nitrogen) 13 mg/dL (8.4-25.7); Calc. Creatinine Clearance 117 mL/min (70-130); Calcium 9.6 mg/dL (7.8-10.44); Carbon Dioxide 19 mmol/L (22-29); Chloride 99 mmol/L (98-107); Estimated GFR 99; Glucose 181 mg/dL (70-105); Magnesium 2.1 mg/dL (1.6-2.6); Sodium 130 mmol/L (136-145)
[2022-01-17 07:28] LABS: #Lymphocytes 0.5 thou/uL (1.20-3.40); #Monocytes 0.5 thou/uL (0.11-0.59); #Neutrophils 15.6 thou/uL (1.40-6.50); %Basophils 0.1 % (0.0-1.0); %Eosinophils 0.1 % (0.0-10.0); %Lymphocytes 3.1 % (21.0-51.0); %Monocytes 2.9 % (0.0-10.0); %Neutrophils 93.8 % (42.0-75.0); Hemoglobin 10.5 g/dL (14.0-18.0); Mean Corpuscular HGB CONC 32.2 g/dL (32.0-36.0); Mean Corpuscular Hemoglobin 25.5 pg (27.0-31.0); Mean Corpuscular Volume 79.2 fL (78.0-98.0); Mean Platelet Volume 8.8 fL (7.4-10.4); Platelet Count 278 thou/uL (130-400); RBC Distribution Width 18.4 % (11.5-14.5); Red Blood Cell (RBC) Count 4.11 mill/uL (4.70-6.10); White Blood Cell (WBC) Count 16.6 thou/uL (4.8-10.8)
[2022-01-17 07:48] LABS: INR-International Normal Ratio 1.1; Prothrombin Time 13.9 sec (12.0-14.7)
[2022-01-17 07:49] LABS: PTT 28.9 sec (22.9-36.1)
[2022-01-17] MEDS: Amlodipine 5 MG TAB PO SCH (09:19)
[2022-01-17] MEDS: Senokot S 8.6-50 MG TAB PO SCH ×2 (09:19→20:31)
[2022-01-17] MEDS: methylPREDNISolone Sod Succ 40 MG VIAL IVP SCH ×2 (09:19→20:31)
[2022-01-17] MEDS: Spironolactone 100 MG TAB PO SCH (09:20)
[2022-01-17] MEDS: Pantoprazole 40 MG VIAL IVP SCH (09:20)
[2022-01-17] MEDS: Polyethylene Glycol 3350 17 GM Packet PO SCH (09:20)
[2022-01-17] MEDS ORDERED: Apixaban 5 MG TAB PO SCH ×2 (11:10→11:15)
[2022-01-17] MEDS: Apixaban 5 MG TAB PO SCH (20:31)
[2022-01-17] MEDS: Montelukast Sodium 10 mg Tablet PO SCH (20:31)
[2022-01-18 06:34] LABS: #Lymphocytes 0.6 thou/uL (1.20-3.40); #Monocytes 0.5 thou/uL (0.11-0.59); #Neutrophils 13.8 thou/uL (1.40-6.50); %Eosinophils 0.1 % (0.0-10.0); %Lymphocytes 4.2 % (21.0-51.0); %Monocytes 3.3 % (0.0-10.0); %Neutrophils 92.4 % (42.0-75.0); Hemoglobin 9.7 g/dL (14.0-18.0); Mean Corpuscular HGB CONC 30.9 g/dL (32.0-36.0); Mean Corpuscular Volume 77.8 fL (78.0-98.0); Platelet Count 276 thou/uL (130-400); RBC Distribution Width 18.1 % (11.5-14.5); Red Blood Cell (RBC) Count 4.02 mill/uL (4.70-6.10); White Blood Cell (WBC) Count 14.9 thou/uL (4.8-10.8)
[2022-01-18 06:46] LABS: Anion Gap 15 mmol/L (10-20); BUN (Urea Nitrogen) 15 mg/dL (8.4-25.7); Calc. Creatinine Clearance 127 mL/min (70-130); Calcium 9.5 mg/dL (7.8-10.44); Carbon Dioxide 22 mmol/L (22-29); Chloride 99 mmol/L (98-107); Estimated GFR 102; Glucose 150 mg/dL (70-105); Magnesium 2.1 mg/dL (1.6-2.6); Potassium 4.9 mmol/L (3.5-5.1); Sodium 131 mmol/L (136-145)
[2022-01-18] MEDS: Mometasone 200 MCG/Formoterol 5 MCG 120 PUFF INHALER INH SCH ×2 (07:31→18:39)
[2022-01-18] MEDS: Apixaban 5 MG TAB PO SCH ×2 (08:33→19:42)
[2022-01-18] MEDS: Amlodipine 5 MG TAB PO SCH (08:33)
[2022-01-18] MEDS: Senokot S 8.6-50 MG TAB PO SCH ×2 (08:33→19:42)
[2022-01-18] MEDS: Spironolactone 100 MG TAB PO SCH (08:33)
[2022-01-18] MEDS: methylPREDNISolone Sod Succ 40 MG VIAL IVP SCH (08:34)
[2022-01-18] MEDS: Polyethylene Glycol 3350 17 GM Packet PO SCH (08:34)
[2022-01-18] MEDS: traMADol HCl 50 MG TAB PO PRN ×2 (08:40→19:47)
[2022-01-18] MEDS: Montelukast Sodium 10 mg Tablet PO SCH (19:42)
[2022-01-19] MEDS: traMADol HCl 50 MG TAB PO PRN ×2 (05:09→19:56)
[2022-01-19 06:58] LABS: #Monocytes 1.2 thou/uL (0.11-0.59); #Neutrophils 14.3 thou/uL (1.40-6.50); %Eosinophils 0.2 % (0.0-10.0); %Lymphocytes 6.1 % (21.0-51.0); %Monocytes 7.4 % (0.0-10.0); %Neutrophils 86.3 % (42.0-75.0); Hemoglobin 10.2 g/dL (14.0-18.0); Mean Corpuscular HGB CONC 30.4 g/dL (32.0-36.0); Mean Corpuscular Hemoglobin 24.1 pg (27.0-31.0); Mean Corpuscular Volume 79.4 fL (78.0-98.0); Mean Platelet Volume 8.7 fL (7.4-10.4); Platelet Count 294 thou/uL (130-400); RBC Distribution Width 18.4 % (11.5-14.5); Red Blood Cell (RBC) Count 4.24 mill/uL (4.70-6.10); White Blood Cell (WBC) Count 16.6 thou/uL (4.8-10.8)
[2022-01-19 06:59] LABS: Anion Gap 13 mmol/L (10-20); BUN (Urea Nitrogen) 17 mg/dL (8.4-25.7); Calc. Creatinine Clearance 132 mL/min (70-130); Calcium 9.5 mg/dL (7.8-10.44); Carbon Dioxide 24 mmol/L (22-29); Chloride 98 mmol/L (98-107); Estimated GFR 103; Glucose 112 mg/dL (70-105); Magnesium 2.1 mg/dL (1.6-2.6); Potassium 4.3 mmol/L (3.5-5.1); Sodium 131 mmol/L (136-145)
[2022-01-19] MEDS: Mometasone 200 MCG/Formoterol 5 MCG 120 PUFF INHALER INH SCH ×2 (07:48→18:51)
[2022-01-19] MEDS: predniSONE 50 MG TAB PO SCH (08:22)
[2022-01-19] MEDS: Amlodipine 5 MG TAB PO SCH (08:23)
[2022-01-19] MEDS: Spironolactone 100 MG TAB PO SCH (08:23)
[2022-01-19] MEDS: Polyethylene Glycol 3350 17 GM Packet PO SCH (08:23)
[2022-01-19] MEDS: Apixaban 5 MG TAB PO SCH ×2 (08:23→19:56)
[2022-01-19] MEDS: Senokot S 8.6-50 MG TAB PO SCH ×2 (08:24→19:57)
[2022-01-19] MEDS ORDERED: guaiFENesin/DM ER PO SCH (13:00)
[2022-01-19] MEDS: guaiFENesin/DM ER PO SCH (19:57)
[2022-01-19] MEDS: Montelukast Sodium 10 mg Tablet PO SCH (19:58)
[2022-01-20] MEDS: traMADol HCl 50 MG TAB PO PRN ×2 (05:36→20:09)
[2022-01-20] MEDS: Mometasone 200 MCG/Formoterol 5 MCG 120 PUFF INHALER INH SCH ×2 (07:32→18:49)
[2022-01-20] MEDS: Apixaban 5 MG TAB PO SCH ×2 (08:38→20:09)
[2022-01-20] MEDS: predniSONE 50 MG TAB PO SCH (08:38)
[2022-01-20] MEDS: Spironolactone 100 MG TAB PO SCH (08:38)
[2022-01-20] MEDS: guaiFENesin/DM ER PO SCH ×2 (08:38→20:10)
[2022-01-20] MEDS: Amlodipine 5 MG TAB PO SCH (08:38)
[2022-01-20] MEDS: Polyethylene Glycol 3350 17 GM Packet PO SCH (08:39)
[2022-01-20] MEDS: Senokot S 8.6-50 MG TAB PO SCH ×2 (08:39→20:09)
[2022-01-20] MEDS ORDERED: ALPRAZolam 0.25 MG TAB PO SCH (14:45)
[2022-01-20 15:14] VITALS: TEMP 97.6
[2022-01-20] MEDS: ALPRAZolam 0.25 MG TAB PO SCH (20:09)
[2022-01-20] MEDS: Montelukast Sodium 10 mg Tablet PO SCH (20:10)
[2022-01-21] MEDS: traMADol HCl 50 MG TAB PO PRN (05:44)
[2022-01-21] MEDS: Mometasone 200 MCG/Formoterol 5 MCG 120 PUFF INHALER INH SCH (06:41)
[2022-01-21 07:59] VITALS: BP 130/81
[2022-01-21] MEDS: Apixaban 5 MG TAB PO SCH (08:39)
[2022-01-21] MEDS: Senokot S 8.6-50 MG TAB PO SCH (08:39)
[2022-01-21] MEDS: Spironolactone 100 MG TAB PO SCH (08:40)
[2022-01-21] MEDS: Amlodipine 5 MG TAB PO SCH (08:42)
[2022-01-21] MEDS: predniSONE 50 MG TAB PO SCH (08:42)
[2022-01-21] MEDS: ALPRAZolam 0.25 MG TAB PO SCH (08:42)
[2022-01-21] MEDS: Polyethylene Glycol 3350 17 GM Packet PO SCH (08:43)
[2022-01-21] MEDS: guaiFENesin/DM ER PO SCH (08:43)
== END 2022-01-21 11:47 | disposition home or self-care (01) | DRG 189 ==
LOC: ERS 23:48 → T4-B 01-15 05:39 → OBSVTOIN 01-16 12:27
PROVIDERS: ADMIT Student in an Organized Health Care Education/Training Program; ATTEND Family Medicine
DX: J96.21 Acute and chronic respiratory failure with hypoxia (principal); J44.1 Chronic obstructive pulmonary disease with (acute) exacerbation; E87.1 Hypo-osmolality and hyponatremia; K92.2 Gastrointestinal hemorrhage, unspecified; F41.9 Anxiety disorder, unspecified; I10 Essential (primary) hypertension; Z87.891 Personal history of nicotine dependence; K70.31 Alcoholic cirrhosis of liver with ascites; Z86.718 Personal history of other venous thrombosis and embolism; Z79.01 Long term (current) use of anticoagulants; I48.0 Paroxysmal atrial fibrillation; Z86.711 Personal history of pulmonary embolism
CPT/HCPCS: 36415; 36416; 71045; 80048; 80053; 82274; 83735; 83880; 84484; 85025; 85610; 85730; 86850; 86900; 86901; 87040; 87070; 87081; 87205; 87449; 87899; 93005; 93970; 94640; 94667; 94668; 96365; 96374; 96375; 96376; C9113; G0378; J1940; J1956; J2354; J2405; J2920; J2930; J3475; J7050; J7512; J7620; Q0162; U0003; U0005

== ENCOUNTER 2022-01-30 13:04 | Emergency (ER) | payer OTHER ==
[2022-01-30] MEDS ORDERED: Magnesium 2 GM/50 ML BAG (IN WATER) ONE (14:24)
[2022-01-30] MEDS ORDERED: Dexamethasone 4 mg/ml Vial ONE (14:24)
[2022-01-30] MEDS ORDERED: Albuterol Sulfate 2.5 mg/0.5 ml Neb ONE (14:24)
[2022-01-30 15:18] LABS: #Basophils 0.2 thou/uL (0.0-0.2); #Eosinphils 0.1 thou/uL (0.0-0.7); #Lymphocytes 1.8 thou/uL (1.20-3.40); #Monocytes 1.1 thou/uL (0.11-0.59); %Basophils 1.2 % (0.0-1.0); %Eosinophils 0.4 % (0.0-10.0); %Neutrophils 80.4 % (42.0-75.0); Hemoglobin 11.6 g/dL (14.0-18.0); Mean Corpuscular Hemoglobin 24.5 pg (27.0-31.0); Mean Corpuscular Volume 79.2 fl (78.0-98.0); Platelet Count 216 thou/uL (130-400); RBC Distribution Width 18.6 % (11.5-14.5); Red Blood Cell (RBC) Count 4.75 mill/uL (4.70-6.10); White Blood Cell (WBC) Count 16.2 thou/uL (4.8-10.8)
[2022-01-30 15:32] LABS: ALT (SGPT) 73 U/L (8-55); AST (SGOT) 28 U/L (5-34); Albumin 3.9 g/dL (3.5-5.0); Alkaline Phosphatase 122 U/L (40-110); Anion Gap 16 mmol/L (10-20); BUN (Urea Nitrogen) 11 mg/dL (8.4-25.7); Bilirubin, Total 0.9 mg/dL (0.2-1.2); CK (CPK) 25 U/L (30-200); Calc. Creatinine Clearance 0 mL/min (70-130); Calcium 8.7 mg/dL (7.8-10.44); Carbon Dioxide 21 mmol/L (22-29); Chloride 99 mmol/L (98-107); Estimated GFR 102; Globulin 2.2 g/dL (2.4-3.5); Glucose 75 mg/dL (70-105); Lipase 38 U/L (8-78); Potassium 3.6 mmol/L (3.5-5.1); Protein, Total 6.1 g/dL (6.0-8.3); Sodium 132 mmol/L (136-145)
[2022-01-30 15:53] LABS: SARS-CoV-2 NAA Rapid Test Not Detected (NotDetected)
== END 2022-01-30 17:01 | disposition home or self-care (01) ==
LOC: ERS 13:04
DX: J44.9 Chronic obstructive pulmonary disease, unspecified (principal); I50.9 Heart failure, unspecified; I11.0 Hypertensive heart disease with heart failure; Z87.891 Personal history of nicotine dependence; Z79.01 Long term (current) use of anticoagulants; Z79.899 Other long term (current) drug therapy
CPT/HCPCS: 36415; 71045; 80053; 82550; 83690; 83880; 84484; 85025; 93005; 96374; 96375; J1100; J3475; J7611; J7620

== ENCOUNTER 2022-02-08 11:12 | Inpatient (IN) | payer OTHER ==
[2022-02-08] MEDS ORDERED: Magnesium 2 GM/50 ML BAG (IN WATER) ONE (12:16)
[2022-02-08] MEDS ORDERED: predniSONE 20 MG TAB ONE (12:16)
[2022-02-08 12:58] LABS: Hemoglobin 10.2 g/dL (14.0-18.0); Mean Corpuscular HGB CONC 29.8 g/dL (32.0-36.0); Mean Corpuscular Hemoglobin 21.6 pg (27.0-31.0); Mean Corpuscular Volume 72.4 fl (78.0-98.0); Platelet Count 277 thou/uL (130-400); RBC Distribution Width 16.8 % (11.5-14.5); Red Blood Cell (RBC) Count 4.72 mill/uL (4.70-6.10); White Blood Cell (WBC) Count 7.2 thou/uL (4.8-10.8)
[2022-02-08 12:59] LABS: #Eosinphils 0.1 thou/uL (0.0-0.7); #Lymphocytes 1.7 thou/uL (1.20-3.40); #Monocytes 0.8 thou/uL (0.11-0.59); #Neutrophils 4.6 thou/uL (1.40-6.50); %Basophils 0.5 % (0.0-1.0); %Lymphocytes 23.4 % (21.0-51.0); %Monocytes 10.6 % (0.0-10.0); %Neutrophils 64.5 % (42.0-75.0)
[2022-02-08 13:14] LABS: ALT (SGPT) 18 U/L (8-55); AST (SGOT) 25 U/L (5-34); Albumin 4.1 g/dL (3.5-5.0); Alkaline Phosphatase 59 U/L (40-110); Anion Gap 10 mmol/L (10-20); BUN (Urea Nitrogen) 8 mg/dL (8.4-25.7); Bilirubin, Total 0.6 mg/dL (0.2-1.2); Calc. Creatinine Clearance 0 mL/min (70-130); Calcium 9.1 mg/dL (7.8-10.44); Carbon Dioxide 25 mmol/L (22-29); Chloride 106 mmol/L (98-107); Estimated GFR 100; Globulin 2.6 g/dL (2.4-3.5); Glucose 102 mg/dL (70-105); Potassium 4.5 mmol/L (3.5-5.1); Protein, Total 6.7 g/dL (6.0-8.3); Sodium 136 mmol/L (136-145)
[2022-02-08 13:57] LABS: Anisocytosis SLIGHT = 6-15 cells (100X) (0-5/hpf); Hypochromia MODERATE=16-30 cells (100X) (0-5/hpf); MDiff Complete? YES; Microcytosis SLIGHT = 6-15 cells (100X) (0-5/hpf); Platelet Morphology Comment Appears Adequate; Target Cells SLIGHT = 2-5 cells (100X) (0-1/hpf)
[2022-02-08] MEDS ORDERED: Doxycycline 100 MG CAP PO SCH ×2 (14:15→21:00)
[2022-02-08] MEDS ORDERED: Ondansetron PF 4 MG/2 ML Vial IVP PRN (15:31)
[2022-02-08 15:42] VITALS: BMI 25.7
[2022-02-08] MEDS: methylPREDNISolone Sod Succ 40 MG VIAL IVP SCH (21:22)
[2022-02-08] MEDS: Apixaban 5 MG TAB PO SCH (21:22)
[2022-02-08] MEDS: traMADol HCl 50 MG TAB PO PRN (21:33)
[2022-02-08] MEDS ORDERED: guaiFENesin ER 600 MG TAB PO SCH (22:00)
[2022-02-09] MEDS: methylPREDNISolone Sod Succ 40 MG VIAL IVP SCH ×3 (05:25→22:02)
[2022-02-09] MEDS: Furosemide 40 MG/4 ML VIAL SLOW IVP SCH ×2 (05:25→15:07)
[2022-02-09 07:42] LABS: #Lymphocytes 0.4 thou/uL (1.20-3.40); #Monocytes 0.3 thou/uL (0.11-0.59); #Neutrophils 10.4 thou/uL (1.40-6.50); %Eosinophils 0.3 % (0.0-10.0); %Lymphocytes 3.4 % (21.0-51.0); %Monocytes 2.6 % (0.0-10.0); %Neutrophils 93.7 % (42.0-75.0); Mean Corpuscular HGB CONC 31.1 g/dL (32.0-36.0); Mean Corpuscular Hemoglobin 25.6 pg (27.0-31.0); Mean Corpuscular Volume 82.4 fl (78.0-98.0); Mean Platelet Volume 7.3 fL (7.4-10.4); Platelet Count 230 thou/uL (130-400); RBC Distribution Width 18.4 % (11.5-14.5); Red Blood Cell (RBC) Count 3.89 mill/uL (4.70-6.10); White Blood Cell (WBC) Count 11.1 thou/uL (4.8-10.8)
[2022-02-09 07:52] LABS: Anion Gap 9 mmol/L (10-20); BUN (Urea Nitrogen) 15 mg/dL (8.4-25.7); Calc. Creatinine Clearance 129 mL/min (70-130); Calcium 8.9 mg/dL (7.8-10.44); Carbon Dioxide 30 mmol/L (22-29); Chloride 101 mmol/L (98-107); Estimated GFR 103; Glucose 150 mg/dL (70-105); Sodium 136 mmol/L (136-145)
[2022-02-09] MEDS: Amlodipine 5 MG TAB PO SCH (08:30)
[2022-02-09] MEDS ORDERED: Mometasone 100 MCG/Formoterol 5 MCG 120 PUFF INHALER INH SCH (08:30)
[2022-02-09] MEDS: guaiFENesin ER 600 MG TAB PO SCH ×2 (08:30→20:28)
[2022-02-09] MEDS: Spironolactone 100 MG TAB PO SCH (08:32)
[2022-02-09] MEDS: Apixaban 5 MG TAB PO SCH ×2 (08:32→20:28)
[2022-02-09] MEDS: traMADol HCl 50 MG TAB PO PRN ×2 (08:37→15:15)
[2022-02-09] MEDS: Mometasone 100 MCG/Formoterol 5 MCG 120 PUFF INHALER INH SCH (18:39)
[2022-02-10] MEDS: traMADol HCl 50 MG TAB PO PRN ×2 (01:57→15:05)
[2022-02-10] MEDS ORDERED: Senokot S 8.6-50 MG TAB PO PRN (02:05)
[2022-02-10] MEDS ORDERED: Senokot S 8.6-50 MG TAB PO SCH (02:15)
[2022-02-10] MEDS: methylPREDNISolone Sod Succ 40 MG VIAL IVP SCH ×3 (05:29→21:51)
[2022-02-10] MEDS: Mometasone 100 MCG/Formoterol 5 MCG 120 PUFF INHALER INH SCH ×2 (06:54→18:11)
[2022-02-10] MEDS: guaiFENesin ER 600 MG TAB PO SCH ×2 (08:44→21:51)
[2022-02-10] MEDS: Amlodipine 5 MG TAB PO SCH (08:44)
[2022-02-10] MEDS: Docusate 100 MG CAP PO PRN (08:45)
[2022-02-10] MEDS: Apixaban 5 MG TAB PO SCH ×2 (08:45→21:51)
[2022-02-10] MEDS: Furosemide 40 MG TAB PO SCH (08:45)
[2022-02-10] MEDS: Spironolactone 100 MG TAB PO SCH (08:45)
[2022-02-10] MEDS: Polyethylene Glycol 3350 17 GM Packet PO PRN (08:45)
[2022-02-11] MEDS ORDERED: Melatonin 3 MG TAB PO SCH (01:00)
[2022-02-11] MEDS: Mometasone 100 MCG/Formoterol 5 MCG 120 PUFF INHALER INH SCH ×2 (06:32→18:57)
[2022-02-11] MEDS: Furosemide 40 MG TAB PO SCH (09:30)
[2022-02-11] MEDS: guaiFENesin ER 600 MG TAB PO SCH ×2 (09:31→20:39)
[2022-02-11] MEDS: traMADol HCl 50 MG TAB PO PRN ×2 (09:31→20:50)
[2022-02-11] MEDS: methylPREDNISolone Sod Succ 40 MG VIAL IVP SCH ×2 (09:32→20:39)
[2022-02-11] MEDS: Spironolactone 100 MG TAB PO SCH (09:32)
[2022-02-11] MEDS: Amlodipine 5 MG TAB PO SCH (09:32)
[2022-02-11] MEDS: Apixaban 5 MG TAB PO SCH ×2 (09:32→20:39)
[2022-02-11] MEDS: Docusate 100 MG CAP PO PRN (20:39)
[2022-02-11] MEDS: Polyethylene Glycol 3350 17 GM Packet PO PRN (20:45)
[2022-02-11] MEDS: Melatonin 3 MG TAB PO PRN (20:45)
[2022-02-12] MEDS: Mometasone 100 MCG/Formoterol 5 MCG 120 PUFF INHALER INH SCH ×2 (07:00→19:04)
[2022-02-12] MEDS: Spironolactone 100 MG TAB PO SCH (08:17)
[2022-02-12] MEDS: Amlodipine 5 MG TAB PO SCH (08:17)
[2022-02-12] MEDS: Apixaban 5 MG TAB PO SCH ×2 (08:18→20:58)
[2022-02-12] MEDS: Furosemide 40 MG TAB PO SCH (08:18)
[2022-02-12] MEDS: methylPREDNISolone Sod Succ 40 MG VIAL IVP SCH ×2 (08:18→20:59)
[2022-02-12] MEDS: guaiFENesin ER 600 MG TAB PO SCH ×2 (08:21→20:59)
[2022-02-12] MEDS: Bisacodyl 10 MG SUPP PR PRN (08:22)
[2022-02-12] MEDS: Polyethylene Glycol 3350 17 GM Packet PO PRN (08:22)
[2022-02-12] MEDS: traMADol HCl 50 MG TAB PO PRN ×2 (08:26→17:07)
[2022-02-12 10:26] LABS: Hemoglobin 9.1 g/dL (14.0-18.0); Mean Corpuscular HGB CONC 30.9 g/dL (32.0-36.0); Mean Corpuscular Hemoglobin 24.9 pg (27.0-31.0); Mean Corpuscular Volume 80.5 fl (78.0-98.0); Mean Platelet Volume 7.5 fL (7.4-10.4); Platelet Count 276 thou/uL (130-400); Red Blood Cell (RBC) Count 3.64 mill/uL (4.70-6.10); White Blood Cell (WBC) Count 20.2 thou/uL (4.8-10.8)
[2022-02-12 11:00] LABS: Anion Gap 13 mmol/L (10-20); BUN (Urea Nitrogen) 17 mg/dL (8.4-25.7); Calc. Creatinine Clearance 133 mL/min (70-130); Carbon Dioxide 24 mmol/L (22-29); Chloride 95 mmol/L (98-107); Potassium 4.7 mmol/L (3.5-5.1); Sodium 127 mmol/L (136-145)
[2022-02-12 11:01] LABS: Calcium 9.1 mg/dL (7.8-10.44); Estimated GFR 104; Glucose 190 mg/dL (70-105)
[2022-02-12] MEDS: Melatonin 3 MG TAB PO PRN (20:59)
[2022-02-13 07:18] LABS: Hemoglobin 9.7 g/dL (14.0-18.0); Mean Corpuscular HGB CONC 31.3 g/dL (32.0-36.0); Mean Corpuscular Hemoglobin 25.4 pg (27.0-31.0); Mean Corpuscular Volume 81.1 fl (78.0-98.0); Mean Platelet Volume 7.4 fL (7.4-10.4); Platelet Count 290 10x3/uL (130-400); Red Blood Cell (RBC) Count 3.81 mill/uL (4.70-6.10); White Blood Cell (WBC) Count 19.9 10x3/uL (4.8-10.8)
[2022-02-13 07:20] LABS: Anion Gap 14 mmol/L (10-20); BUN (Urea Nitrogen) 18 mg/dL (8.4-25.7); Calc. Creatinine Clearance 128 mL/min (70-130); Carbon Dioxide 25 mmol/L (22-29); Chloride 96 mmol/L (98-107); Estimated GFR 102; Glucose 188 mg/dL (70-105); Potassium 4.8 mmol/L (3.5-5.1); Sodium 130 mmol/L (136-145)
[2022-02-13] MEDS: Mometasone 100 MCG/Formoterol 5 MCG 120 PUFF INHALER INH SCH ×2 (07:20→18:30)
[2022-02-13] MEDS: Amlodipine 5 MG TAB PO SCH (10:05)
[2022-02-13] MEDS: predniSONE 20 MG TAB PO SCH (10:06)
[2022-02-13] MEDS: Spironolactone 100 MG TAB PO SCH (10:07)
[2022-02-13] MEDS: Apixaban 5 MG TAB PO SCH ×2 (10:07→21:16)
[2022-02-13] MEDS: guaiFENesin ER 600 MG TAB PO SCH ×2 (10:07→21:16)
[2022-02-13] MEDS: traMADol HCl 50 MG TAB PO PRN ×2 (10:10→21:17)
[2022-02-13] MEDS: Docusate 100 MG CAP PO PRN (10:14)
[2022-02-13] MEDS: Polyethylene Glycol 3350 17 GM Packet PO PRN (10:14)
[2022-02-13 10:32] LABS: Anisocytosis SLIGHT = 6-15 cells (100X) (0-5/hpf); Band 2 % (5-11); Hypochromia SLIGHT = 6-15 cells (100X) (0-5/hpf); Lymphocytes 4 % (21-51); MDiff Complete? YES; Monocytes 4 % (0-10); Myelocyte 2 % (0-0); Neutrophil 88 % (42-75); Platelet Morphology Comment Appears Adequate; Polychromasia SLIGHT = 2-3 cells (100X) (0-2/hpf)
[2022-02-13] MEDS: Bisacodyl 10 MG SUPP PR PRN (18:26)
[2022-02-14] MEDS: Mometasone 100 MCG/Formoterol 5 MCG 120 PUFF INHALER INH SCH ×2 (07:29→18:36)
[2022-02-14] MEDS: traMADol HCl 50 MG TAB PO PRN (08:33)
[2022-02-14] MEDS: Apixaban 5 MG TAB PO SCH ×2 (08:34→21:54)
[2022-02-14] MEDS: Spironolactone 100 MG TAB PO SCH (08:34)
[2022-02-14] MEDS: guaiFENesin ER 600 MG TAB PO SCH ×2 (08:35→21:54)
[2022-02-14] MEDS: Amlodipine 5 MG TAB PO SCH (08:35)
[2022-02-14] MEDS: Docusate 100 MG CAP PO PRN (08:35)
[2022-02-14] MEDS: predniSONE 20 MG TAB PO SCH (08:36)
[2022-02-14] MEDS: Polyethylene Glycol 3350 17 GM Packet PO PRN (08:36)
[2022-02-14] MEDS: Bisacodyl 10 MG SUPP PR PRN (12:31)
[2022-02-14 15:40] LABS: Anion Gap 18 mmol/L (10-20); BUN (Urea Nitrogen) 18 mg/dL (8.4-25.7); Calc. Creatinine Clearance 120 mL/min (70-130); Calcium 9.7 mg/dL (7.8-10.44); Carbon Dioxide 23 mmol/L (22-29); Chloride 95 mmol/L (98-107); Estimated GFR 101; Glucose 121 mg/dL (70-105); Magnesium 2.5 mg/dL (1.6-2.6); Potassium 5.4 mmol/L (3.5-5.1); Sodium 131 mmol/L (136-145)
[2022-02-14 20:49] LABS: Hemoglobin 9.2 g/dL (14.0-18.0); Mean Corpuscular HGB CONC 32.1 g/dL (32.0-36.0); Mean Corpuscular Hemoglobin 25.6 pg (27.0-31.0); Mean Corpuscular Volume 79.7 fl (78.0-98.0); Mean Platelet Volume 7.5 fL (7.4-10.4); Platelet Count 270 10x3/uL (130-400); RBC Distribution Width 18.2 % (11.5-14.5); Red Blood Cell (RBC) Count 3.58 mill/uL (4.70-6.10); White Blood Cell (WBC) Count 21.4 10x3/uL (4.8-10.8)
[2022-02-14 21:09] LABS: Band 10 % (5-11); Hypochromia SLIGHT = 6-15 cells (100X) (0-5/hpf); Lymphocytes 7 % (21-51); MDiff Complete? YES; Monocytes 12 % (0-10); Neutrophil 69 % (42-75); Platelet Morphology Comment Appears Adequate; Reactive Lymphocytes 2 % (0-10)
[2022-02-14 21:32] LABS: Anion Gap 13 mmol/L (10-20); BUN (Urea Nitrogen) 19 mg/dL (8.4-25.7); Calc. Creatinine Clearance 114 mL/min (70-130); Carbon Dioxide 25 mmol/L (22-29); Chloride 98 mmol/L (98-107); Estimated GFR 99; Glucose 173 mg/dL (70-105); Potassium 4.9 mmol/L (3.5-5.1); Sodium 131 mmol/L (136-145)
[2022-02-14 21:56] LABS: Calcium 9.3 mg/dL (7.8-10.44)
[2022-02-14] MEDS: Melatonin 3 MG TAB PO PRN (21:57)
[2022-02-15] MEDS: Mometasone 100 MCG/Formoterol 5 MCG 120 PUFF INHALER INH SCH ×2 (07:04→18:31)
[2022-02-15] MEDS: predniSONE 20 MG TAB PO SCH (09:32)
[2022-02-15] MEDS: Apixaban 5 MG TAB PO SCH ×2 (09:32→20:26)
[2022-02-15] MEDS: guaiFENesin ER 600 MG TAB PO SCH ×2 (09:32→20:26)
[2022-02-15] MEDS: Amlodipine 5 MG TAB PO SCH (09:32)
[2022-02-15] MEDS: traMADol HCl 50 MG TAB PO PRN ×2 (09:34→20:27)
[2022-02-15] MEDS: Melatonin 3 MG TAB PO PRN (20:43)
[2022-02-16] MEDS: traMADol HCl 50 MG TAB PO PRN ×3 (05:18→22:14)
[2022-02-16] MEDS: Acetaminophen 325 MG TAB PO PRN ×2 (05:19→22:13)
[2022-02-16] MEDS: Mometasone 100 MCG/Formoterol 5 MCG 120 PUFF INHALER INH SCH ×2 (06:44→19:32)
[2022-02-16 07:00] LABS: Anisocytosis SLIGHT = 6-15 cells (100X) (0-5/hpf); Band 3 % (5-11); Hemoglobin 9.9 g/dL (14.0-18.0); Hypochromia SLIGHT = 6-15 cells (100X) (0-5/hpf); Lymphocytes 15 % (21-51); MDiff Complete? YES; Mean Corpuscular HGB CONC 31.3 g/dL (32.0-36.0); Mean Corpuscular Hemoglobin 25.3 pg (27.0-31.0); Mean Corpuscular Volume 80.7 fl (78.0-98.0); Mean Platelet Volume 7.2 fL (7.4-10.4); Monocytes 8 % (0-10); Myelocyte 2 % (0-0); Neutrophil 72 % (42-75); Platelet Count 299 10x3/uL (130-400); Platelet Morphology Comment Appears Adequate; Polychromasia SLIGHT = 2-3 cells (100X) (0-2/hpf); RBC Distribution Width 18.2 % (11.5-14.5)
[2022-02-16 07:02] LABS: Anion Gap 10 mmol/L (10-20); BUN (Urea Nitrogen) 15 mg/dL (8.4-25.7); Calc. Creatinine Clearance 145 mL/min (70-130); Calcium 8.9 mg/dL (7.8-10.44); Carbon Dioxide 27 mmol/L (22-29); Chloride 98 mmol/L (98-107); Estimated GFR 106; Glucose 72 mg/dL (70-105); Magnesium 2.2 mg/dL (1.6-2.6); Potassium 4.4 mmol/L (3.5-5.1); Sodium 131 mmol/L (136-145)
[2022-02-16] MEDS: guaiFENesin ER 600 MG TAB PO SCH ×2 (09:12→22:11)
[2022-02-16] MEDS: predniSONE 20 MG TAB PO SCH (09:12)
[2022-02-16] MEDS: Spironolactone 100 MG TAB PO SCH (09:12)
[2022-02-16] MEDS: Apixaban 5 MG TAB PO SCH ×3 (09:12→22:15)
[2022-02-16] MEDS: Amlodipine 5 MG TAB PO SCH (09:12)
[2022-02-16] MEDS: Docusate 100 MG CAP PO PRN (09:15)
[2022-02-16] MEDS: Polyethylene Glycol 3350 17 GM Packet PO PRN (09:15)
[2022-02-16] MEDS ORDERED: Proctozone-HC 30 GM TUBE TOP PRN (18:25)
[2022-02-16] MEDS ORDERED: Magnesium Citrate 300 ML BOT PO SCH (19:15)
[2022-02-16] MEDS ORDERED: Albuterol 200 PUFF (6.7GM INHALER) INH PRN (19:21)
[2022-02-16] MEDS ORDERED: Furosemide 20 MG/2 ML VIAL SLOW IVP SCH (19:30)
[2022-02-16] MEDS: Montelukast Sodium 10 mg Tablet PO SCH (22:11)
[2022-02-16] MEDS: Melatonin 3 MG TAB PO PRN (22:14)
[2022-02-17] MEDS: Mometasone 100 MCG/Formoterol 5 MCG 120 PUFF INHALER INH SCH ×2 (06:17→18:58)
[2022-02-17] MEDS: Spironolactone 100 MG TAB PO SCH (08:59)
[2022-02-17] MEDS: predniSONE 20 MG TAB PO SCH (08:59)
[2022-02-17] MEDS: Apixaban 5 MG TAB PO SCH ×2 (08:59→20:46)
[2022-02-17] MEDS: guaiFENesin ER 600 MG TAB PO SCH ×2 (08:59→20:45)
[2022-02-17] MEDS: Amlodipine 5 MG TAB PO SCH (08:59)
[2022-02-17] MEDS ORDERED: Mineral Oil ENEMA PR SCH (12:00)
[2022-02-17] MEDS: traMADol HCl 50 MG TAB PO PRN (18:14)
[2022-02-17] MEDS: Montelukast Sodium 10 mg Tablet PO SCH (20:46)
[2022-02-17] MEDS: Melatonin 3 MG TAB PO PRN (20:56)
[2022-02-18] MEDS: Polyethylene Glycol 3350 17 GM Packet PO PRN (00:29)
[2022-02-18] MEDS: Mometasone 100 MCG/Formoterol 5 MCG 120 PUFF INHALER INH SCH ×3 (07:20→19:13)
[2022-02-18] MEDS: guaiFENesin ER 600 MG TAB PO SCH ×2 (09:07→20:52)
[2022-02-18] MEDS: Apixaban 5 MG TAB PO SCH ×2 (09:08→20:52)
[2022-02-18] MEDS: predniSONE 20 MG TAB PO SCH (09:08)
[2022-02-18] MEDS: Spironolactone 100 MG TAB PO SCH (09:08)
[2022-02-18] MEDS: Amlodipine 5 MG TAB PO SCH (09:08)
[2022-02-18] MEDS: traMADol HCl 50 MG TAB PO PRN ×2 (11:59→20:52)
[2022-02-18] MEDS: Acetaminophen 325 MG TAB PO PRN (11:59)
[2022-02-18] MEDS: Melatonin 3 MG TAB PO PRN (20:52)
[2022-02-18] MEDS: Montelukast Sodium 10 mg Tablet PO SCH (20:52)
[2022-02-19] MEDS: Mometasone 100 MCG/Formoterol 5 MCG 120 PUFF INHALER INH SCH (06:54)
[2022-02-19] MEDS: Spironolactone 100 MG TAB PO SCH (08:37)
[2022-02-19] MEDS: Amlodipine 5 MG TAB PO SCH (08:37)
[2022-02-19] MEDS: Apixaban 5 MG TAB PO SCH (08:38)
[2022-02-19] MEDS: predniSONE 20 MG TAB PO SCH (08:38)
[2022-02-19] MEDS: guaiFENesin ER 600 MG TAB PO SCH (08:38)
[2022-02-19] MEDS: Docusate 100 MG CAP PO PRN (08:44)
[2022-02-19] MEDS: traMADol HCl 50 MG TAB PO PRN (08:52)
[2022-02-19 12:19] VITALS: BP 144/73; TEMP 98.3
== END 2022-02-19 12:29 | disposition home or self-care (01) | DRG 189 ==
LOC: ERS 11:12 → OBSVTOIN 15:22 → T4-B 15:22 → T4-A 02-09 12:50 → T4-B 02-09 12:51
PROVIDERS: ADMIT Family Medicine; ATTEND Family Medicine
DX: J96.21 Acute and chronic respiratory failure with hypoxia (principal); Z20.822 Contact with and (suspected) exposure to COVID-19; I50.33 Acute on chronic diastolic (congestive) heart failure; J44.1 Chronic obstructive pulmonary disease with (acute) exacerbation; E87.1 Hypo-osmolality and hyponatremia; I11.0 Hypertensive heart disease with heart failure; K70.31 Alcoholic cirrhosis of liver with ascites; F41.9 Anxiety disorder, unspecified; I48.91 Unspecified atrial fibrillation; K59.01 Slow transit constipation; Z86.718 Personal history of other venous thrombosis and embolism; Z86.711 Personal history of pulmonary embolism; Z98.890 Other specified postprocedural states; Z87.891 Personal history of nicotine dependence; Z88.6 Allergy status to analgesic agent; Z88.1 Allergy status to other antibiotic agents; Z79.899 Other long term (current) drug therapy; Z79.01 Long term (current) use of anticoagulants; Z79.52 Long term (current) use of systemic steroids
CPT/HCPCS: 36415; 71045; 74018; 76705; 80048; 80053; 83735; 83880; 83935; 84300; 84484; 85025; 85027; 87811; 93005; 94640; 94667; 94668; 96365; G0378; J1940; J1956; J2405; J2920; J3475; J7512; J7620; U0003; U0005

== ENCOUNTER 2022-02-22 19:07 | Inpatient (IN) | payer OTHER ==
[2022-02-22 21:04] LABS: Hemoglobin 10.2 g/dL (14.0-18.0); Mean Corpuscular HGB CONC 31.7 g/dL (32.0-36.0); Mean Corpuscular Hemoglobin 26.2 pg (27.0-31.0); Mean Corpuscular Volume 82.7 fl (78.0-98.0); Mean Platelet Volume 7.5 fL (7.4-10.4); Platelet Count 294 10x3/uL (130-400); Red Blood Cell (RBC) Count 3.91 mill/uL (4.70-6.10); White Blood Cell (WBC) Count 24.7 10x3/uL (4.8-10.8)
[2022-02-22 21:09] LABS: #Eosinphils 0.1 thou/uL (0.0-0.7); #Lymphocytes 0.8 thou/uL (1.20-3.40); #Monocytes 1.1 thou/uL (0.11-0.59); #Neutrophils 23.1 thou/uL (1.40-6.50); %Basophils 0.1 % (0.0-1.0); %Eosinophils 0.3 % (0.0-10.0); %Lymphocytes 3.4 % (21.0-51.0); %Monocytes 4.5 % (0.0-10.0); %Neutrophils 91.8 % (42.0-75.0)
[2022-02-22 21:22] LABS: ALT (SGPT) 87 U/L (8-55); AST (SGOT) 28 U/L (5-34); Alkaline Phosphatase 136 U/L (40-110); Anion Gap 16 mmol/L (10-20); BUN (Urea Nitrogen) 15 mg/dL (8.4-25.7); Bilirubin, Total 0.6 mg/dL (0.2-1.2); Calc. Creatinine Clearance 0 mL/min (70-130); Calcium 8.8 mg/dL (7.8-10.44); Carbon Dioxide 21 mmol/L (22-29); Chloride 98 mmol/L (98-107); Estimated GFR 103; Globulin 2.5 g/dL (2.4-3.5); Glucose 141 mg/dL (70-105); Protein, Total 6.5 g/dL (6.0-8.3); Sodium 131 mmol/L (136-145)
[2022-02-22] MEDS ORDERED: Cefepime 2 GM VIAL ONE (21:43)
[2022-02-22] MEDS ORDERED: Acetaminophen 500 MG TAB ONE (21:43)
[2022-02-22] MEDS ORDERED: Morphine 4 MG/ML VIAL ONE (22:18)
[2022-02-22] MEDS ORDERED: Ondansetron PF 4 MG/2 ML Vial ONE (22:44)
[2022-02-22] MEDS ORDERED: Acetaminophen 325 MG TAB PO PRN (23:04)
[2022-02-22] MEDS ORDERED: Ondansetron PF 4 MG/2 ML Vial IVP PRN (23:04)
[2022-02-22 23:14] LABS: SARS-CoV-2 NAA Rapid Test Not Detected (NotDetected)
[2022-02-22] MEDS ORDERED: Mometasone 100 MCG/Formoterol 5 MCG 120 PUFF INHALER INH SCH (23:59)
[2022-02-23 00:02] VITALS: BMI 25.7
[2022-02-23] MEDS: methylPREDNISolone Sod Succ 40 MG VIAL IVP SCH ×4 (00:34→20:56)
[2022-02-23 00:49] LABS: Lactic Acid 1.8 mmol/L (0.5-2.2)
[2022-02-23 03:05] LABS: Troponin I Less than 0.010 ng/mL (< 0.028)
[2022-02-23] MEDS: Acetaminophen/Codeine 30-300mg Tablet PO PRN (05:34)
[2022-02-23] MEDS ORDERED: Mometasone 100 MCG/Formoterol 5 MCG 120 PUFF INHALER INH SCH (06:30)
[2022-02-23] MEDS: Mometasone 200 MCG/Formoterol 5 MCG 120 PUFF INHALER INH SCH ×2 (07:25→19:31)
[2022-02-23 08:15] LABS: #Eosinphils 0.1 thou/uL (0.0-0.7); #Lymphocytes 0.5 thou/uL (1.20-3.40); #Monocytes 0.2 thou/uL (0.11-0.59); #Neutrophils 17.8 thou/uL (1.40-6.50); %Eosinophils 0.3 % (0.0-10.0); %Lymphocytes 2.4 % (21.0-51.0); %Monocytes 1.3 % (0.0-10.0); Mean Corpuscular HGB CONC 29.8 g/dL (32.0-36.0); Mean Corpuscular Hemoglobin 24.4 pg (27.0-31.0); Mean Corpuscular Volume 81.9 fl (78.0-98.0); Mean Platelet Volume 7.6 fL (7.4-10.4); Platelet Count 239 10x3/uL (130-400); RBC Distribution Width 18.8 % (11.5-14.5); Red Blood Cell (RBC) Count 3.68 mill/uL (4.70-6.10); White Blood Cell (WBC) Count 18.6 10x3/uL (4.8-10.8)
[2022-02-23 08:19] LABS: Anion Gap 15 mmol/L (10-20); BUN (Urea Nitrogen) 12 mg/dL (8.4-25.7); Calc. Creatinine Clearance 129 mL/min (70-130); Calcium 8.7 mg/dL (7.8-10.44); Carbon Dioxide 21 mmol/L (22-29); Chloride 101 mmol/L (98-107); Estimated GFR 103; Glucose 132 mg/dL (70-105); Potassium 4.6 mmol/L (3.5-5.1); Sodium 132 mmol/L (136-145)
[2022-02-23 08:20] LABS: ALT (SGPT) 78 U/L (8-55); AST (SGOT) 26 U/L (5-34); Albumin 3.6 g/dL (3.5-5.0); Alkaline Phosphatase 125 U/L (40-110); Bilirubin, Direct 0.2 mg/dL (0.1-0.3); Bilirubin, Total 0.5 mg/dL (0.2-1.2); Protein, Total 6.3 g/dL (6.0-8.3)
[2022-02-23] MEDS: Amlodipine 10 MG TAB PO SCH (08:44)
[2022-02-23] MEDS: Spironolactone 25 MG TAB PO SCH (08:44)
[2022-02-23] MEDS: Nystatin 500,000 UNITS/5 ML UDCUP SSW SCH ×4 (08:44→20:57)
[2022-02-23] MEDS: Apixaban 5 MG TAB PO SCH ×2 (08:44→20:55)
[2022-02-23] MEDS ORDERED: Enoxaparin Sodium 40 MG/0.4 ML SYRINGE SC SCH (09:00)
[2022-02-23] MEDS: Morphine 4 MG/ML VIAL SLOW IVP PRN ×2 (12:35→20:58)
[2022-02-23] MEDS ORDERED: Doxycycline 100 MG CAP PO SCH (14:00)
[2022-02-23] MEDS: Doxycycline 100 MG CAP PO SCH (20:56)
[2022-02-23] MEDS: Montelukast Sodium 10 mg Tablet PO SCH (20:56)
[2022-02-24 06:14] LABS: ALT (SGPT) 69 U/L (8-55); AST (SGOT) 22 U/L (5-34); Albumin 3.6 g/dL (3.5-5.0); Alkaline Phosphatase 111 U/L (40-110); Anion Gap 12 mmol/L (10-20); BUN (Urea Nitrogen) 18 mg/dL (8.4-25.7); Bilirubin, Total 0.3 mg/dL (0.2-1.2); Calc. Creatinine Clearance 135 mL/min (70-130); Calcium 8.8 mg/dL (7.8-10.44); Carbon Dioxide 26 mmol/L (22-29); Chloride 102 mmol/L (98-107); Estimated GFR 104; Globulin 2.5 g/dL (2.4-3.5); Glucose 134 mg/dL (70-105); Magnesium 2.2 mg/dL (1.6-2.6); Potassium 4.6 mmol/L (3.5-5.1); Protein, Total 6.1 g/dL (6.0-8.3); Sodium 135 mmol/L (136-145)
[2022-02-24 06:44] LABS: Band 9 % (5-11); Hemoglobin 9.4 g/dL (14.0-18.0); Lymphocytes 3 % (21-51); MDiff Complete? YES; Mean Corpuscular HGB CONC 34.4 g/dL (32.0-36.0); Mean Corpuscular Hemoglobin 27.9 pg (27.0-31.0); Mean Platelet Volume 7.6 fL (7.4-10.4); Monocytes 3 % (0-10); Neutrophil 85 % (42-75); Platelet Count 215 10x3/uL (130-400); RBC Distribution Width 18.7 % (11.5-14.5); Red Blood Cell (RBC) Count 3.39 mill/uL (4.70-6.10); White Blood Cell (WBC) Count 16.8 10x3/uL (4.8-10.8)
[2022-02-24] MEDS: Mometasone 200 MCG/Formoterol 5 MCG 120 PUFF INHALER INH SCH ×2 (07:47→18:19)
[2022-02-24] MEDS: Apixaban 5 MG TAB PO SCH ×2 (10:01→20:39)
[2022-02-24] MEDS: Doxycycline 100 MG CAP PO SCH ×2 (10:01→20:38)
[2022-02-24] MEDS: Amlodipine 10 MG TAB PO SCH (10:01)
[2022-02-24] MEDS: Spironolactone 25 MG TAB PO SCH (10:01)
[2022-02-24] MEDS: methylPREDNISolone Sod Succ 40 MG VIAL IVP SCH ×3 (10:02→20:38)
[2022-02-24] MEDS: Morphine 4 MG/ML VIAL SLOW IVP PRN ×3 (10:02→23:23)
[2022-02-24] MEDS: Nystatin 500,000 UNITS/5 ML UDCUP SSW SCH ×4 (10:03→20:38)
[2022-02-24] MEDS ORDERED: guaiFENesin/Codeine 200 mg/20 mg 10 ml Cup PO PRN (11:24)
[2022-02-24] MEDS ORDERED: Bisacodyl 5 MG TAB PO PRN (11:25)
[2022-02-24] MEDS: Benzonatate 100 MG CAP PO SCH ×2 (15:21→20:38)
[2022-02-24] MEDS: Montelukast Sodium 10 mg Tablet PO SCH (20:39)
[2022-02-25 05:32] LABS: #Eosinphils 0.1 thou/uL (0.0-0.7); #Lymphocytes 0.3 thou/uL (1.20-3.40); #Monocytes 0.7 thou/uL (0.11-0.59); #Neutrophils 16.6 thou/uL (1.40-6.50); %Eosinophils 0.3 % (0.0-10.0); %Lymphocytes 1.7 % (21.0-51.0); %Monocytes 4.1 % (0.0-10.0); %Neutrophils 93.8 % (42.0-75.0); Hemoglobin 8.9 g/dL (14.0-18.0); Mean Corpuscular HGB CONC 30.2 g/dL (32.0-36.0); Mean Corpuscular Hemoglobin 25.2 pg (27.0-31.0); Mean Corpuscular Volume 83.5 fl (78.0-98.0); Mean Platelet Volume 7.6 fL (7.4-10.4); Platelet Count 234 10x3/uL (130-400); RBC Distribution Width 18.9 % (11.5-14.5); Red Blood Cell (RBC) Count 3.51 mill/uL (4.70-6.10); White Blood Cell (WBC) Count 17.7 10x3/uL (4.8-10.8)
[2022-02-25 05:41] LABS: Anion Gap 13 mmol/L (10-20); BUN (Urea Nitrogen) 16 mg/dL (8.4-25.7); Calc. Creatinine Clearance 151 mL/min (70-130); Calcium 8.9 mg/dL (7.8-10.44); Carbon Dioxide 20 mmol/L (22-29); Chloride 100 mmol/L (98-107); Estimated GFR 108; Glucose 224 mg/dL (70-105); Potassium 4.4 mmol/L (3.5-5.1); Sodium 129 mmol/L (136-145)
[2022-02-25] MEDS: Morphine 4 MG/ML VIAL SLOW IVP PRN ×2 (05:56→20:51)
[2022-02-25] MEDS: Mometasone 200 MCG/Formoterol 5 MCG 120 PUFF INHALER INH SCH ×2 (06:55→18:26)
[2022-02-25] MEDS: Spironolactone 25 MG TAB PO SCH (09:30)
[2022-02-25] MEDS: Nystatin 500,000 UNITS/5 ML UDCUP SSW SCH ×4 (09:30→20:43)
[2022-02-25] MEDS: methylPREDNISolone Sod Succ 40 MG VIAL IVP SCH ×3 (09:30→20:44)
[2022-02-25] MEDS: Lidocaine 5% Patch TD SCH (09:30)
[2022-02-25] MEDS: Benzonatate 100 MG CAP PO SCH ×3 (09:30→20:43)
[2022-02-25] MEDS: Doxycycline 100 MG CAP PO SCH ×2 (09:30→20:43)
[2022-02-25] MEDS: Polyethylene Glycol 3350 17 GM Packet PO SCH (09:30)
[2022-02-25] MEDS: Amlodipine 10 MG TAB PO SCH (09:30)
[2022-02-25] MEDS: Apixaban 5 MG TAB PO SCH ×2 (09:30→20:43)
[2022-02-25] MEDS: Acetaminophen/Codeine 30-300mg Tablet PO PRN (17:14)
[2022-02-25] MEDS: Transdermal Patch Removal TOP SCH (20:44)
[2022-02-25] MEDS: Metoprolol Tartrate 25 MG TAB PO SCH (20:44)
[2022-02-25] MEDS: Montelukast Sodium 10 mg Tablet PO SCH (20:44)
[2022-02-26] MEDS: Acetaminophen/Codeine 30-300mg Tablet PO PRN ×2 (04:20→09:50)
[2022-02-26] MEDS: Mometasone 200 MCG/Formoterol 5 MCG 120 PUFF INHALER INH SCH ×2 (07:36→18:46)
[2022-02-26] MEDS: predniSONE 5 MG TAB PO SCH (09:36)
[2022-02-26] MEDS: Benzonatate 100 MG CAP PO SCH ×3 (09:37→21:11)
[2022-02-26] MEDS: Spironolactone 25 MG TAB PO SCH (09:37)
[2022-02-26] MEDS: Apixaban 5 MG TAB PO SCH ×2 (09:37→21:11)
[2022-02-26] MEDS: Doxycycline 100 MG CAP PO SCH ×2 (09:38→21:11)
[2022-02-26] MEDS: Metoprolol Tartrate 25 MG TAB PO SCH ×2 (09:39→21:12)
[2022-02-26] MEDS: Lidocaine 5% Patch TD SCH (09:39)
[2022-02-26] MEDS: Polyethylene Glycol 3350 17 GM Packet PO SCH (09:40)
[2022-02-26] MEDS: Nystatin 500,000 UNITS/5 ML UDCUP SSW SCH ×4 (09:40→21:12)
[2022-02-26] MEDS: Morphine 4 MG/ML VIAL SLOW IVP PRN (21:02)
[2022-02-26] MEDS: Montelukast Sodium 10 mg Tablet PO SCH (21:12)
[2022-02-26] MEDS: Transdermal Patch Removal TOP SCH (21:12)
[2022-02-26] MEDS: Morphine 4 MG/ML VIAL SLOW IVP SCH (21:30)
[2022-02-26 21:58] LABS: Troponin I Less than 0.010 ng/mL (< 0.028)
[2022-02-27 00:20] LABS: CKMB 2.8 ng/mL (0-6.6)
[2022-02-27] MEDS: Acetaminophen/Codeine 30-300mg Tablet PO PRN (04:13)
[2022-02-27] MEDS: Morphine 4 MG/ML VIAL SLOW IVP PRN ×2 (05:07→09:22)
[2022-02-27] MEDS ORDERED: Morphine 4 MG/ML VIAL SLOW IVP SCH (05:45)
[2022-02-27 05:57] LABS: Troponin I Less than 0.010 ng/mL (< 0.028)
[2022-02-27] MEDS: Mometasone 200 MCG/Formoterol 5 MCG 120 PUFF INHALER INH SCH ×2 (07:24→18:38)
[2022-02-27 07:30] LABS: Anion Gap 17 mmol/L (10-20); BUN (Urea Nitrogen) 17 mg/dL (8.4-25.7); Calc. Creatinine Clearance 135 mL/min (70-130); Calcium 8.9 mg/dL (7.8-10.44); Carbon Dioxide 21 mmol/L (22-29); Chloride 101 mmol/L (98-107); Estimated GFR 104; Glucose 112 mg/dL (70-105); Sodium 135 mmol/L (136-145)
[2022-02-27] MEDS: Spironolactone 25 MG TAB PO SCH (08:53)
[2022-02-27] MEDS: Metoprolol Tartrate 25 MG TAB PO SCH ×2 (08:53→19:50)
[2022-02-27] MEDS: Doxycycline 100 MG CAP PO SCH ×2 (08:53→19:50)
[2022-02-27] MEDS: predniSONE 5 MG TAB PO SCH (08:53)
[2022-02-27] MEDS: Apixaban 5 MG TAB PO SCH ×2 (08:53→19:50)
[2022-02-27] MEDS: Benzonatate 100 MG CAP PO SCH ×3 (08:54→19:50)
[2022-02-27] MEDS: Nystatin 500,000 UNITS/5 ML UDCUP SSW SCH ×4 (08:54→19:51)
[2022-02-27] MEDS: Polyethylene Glycol 3350 17 GM Packet PO SCH (08:55)
[2022-02-27] MEDS: Lidocaine 5% Patch TD SCH (08:55)
[2022-02-27] MEDS ORDERED: HYDROcodone/Acetaminophen 5/325 mg Tablet PO PRN (09:25)
[2022-02-27] MEDS: HYDROcodone/Acetaminophen 5/325 mg Tablet PO PRN ×2 (17:04→19:51)
[2022-02-27] MEDS: Montelukast Sodium 10 mg Tablet PO SCH (19:50)
[2022-02-27] MEDS: Transdermal Patch Removal TOP SCH (20:00)
[2022-02-28] MEDS: HYDROcodone/Acetaminophen 5/325 mg Tablet PO PRN ×2 (03:40→08:40)
[2022-02-28 05:26] LABS: Anion Gap 13 mmol/L (10-20); BUN (Urea Nitrogen) 18 mg/dL (8.4-25.7); Calc. Creatinine Clearance 138 mL/min (70-130); Calcium 8.5 mg/dL (7.8-10.44); Carbon Dioxide 26 mmol/L (22-29); Chloride 100 mmol/L (98-107); Estimated GFR 105; Glucose 131 mg/dL (70-105); Potassium 3.9 mmol/L (3.5-5.1); Sodium 135 mmol/L (136-145)
[2022-02-28 05:47] LABS: Anisocytosis SLIGHT = 6-15 cells (100X) (0-5/hpf); Band 9 % (5-11); Eosinophils 2 % (0-10); Hemoglobin 9.8 g/dL (14.0-18.0); Hypochromia SLIGHT = 6-15 cells (100X) (0-5/hpf); Lymphocytes 12 % (21-51); MDiff Complete? YES; Mean Corpuscular HGB CONC 30.6 g/dL (32.0-36.0); Mean Corpuscular Hemoglobin 25.7 pg (27.0-31.0); Mean Platelet Volume 9.3 fL (7.4-10.4); Monocytes 6 % (0-10); Myelocyte 2 % (0-0); Neutrophil 69 % (42-75); Platelet Count 190 10x3/uL (130-400); Platelet Morphology Comment Appears Adequate; Polychromasia SLIGHT = 2-3 cells (100X) (0-2/hpf); RBC Distribution Width 18.3 % (11.5-14.5); Red Blood Cell (RBC) Count 3.81 mill/uL (4.70-6.10); White Blood Cell (WBC) Count 16.5 10x3/uL (4.8-10.8)
[2022-02-28] MEDS: Mometasone 200 MCG/Formoterol 5 MCG 120 PUFF INHALER INH SCH (07:10)
[2022-02-28] MEDS ORDERED: Lorazepam 2 MG/ML VIAL SLOW IVP SCH (07:45)
[2022-02-28] MEDS: Polyethylene Glycol 3350 17 GM Packet PO SCH (08:34)
[2022-02-28] MEDS: Doxycycline 100 MG CAP PO SCH (08:35)
[2022-02-28] MEDS: Benzonatate 100 MG CAP PO SCH (08:36)
[2022-02-28] MEDS: Apixaban 5 MG TAB PO SCH (08:36)
[2022-02-28] MEDS: Spironolactone 25 MG TAB PO SCH (08:36)
[2022-02-28] MEDS: predniSONE 5 MG TAB PO SCH (08:36)
[2022-02-28] MEDS: Metoprolol Tartrate 25 MG TAB PO SCH (08:36)
[2022-02-28] MEDS: Nystatin 500,000 UNITS/5 ML UDCUP SSW SCH (09:29)
[2022-02-28] MEDS: Lidocaine 5% Patch TD SCH (09:30)
[2022-02-28 11:47] VITALS: BP 152/70; TEMP 98.5
== END 2022-02-28 14:15 | disposition home or self-care (01) | DRG 190 ==
LOC: ERS 19:07 → 2SW 22:27 → OBSVTOIN 02-23 17:02
PROVIDERS: ADMIT Hospitalist; ATTEND Hospitalist
DX: J44.1 Chronic obstructive pulmonary disease with (acute) exacerbation (principal); J18.9 Pneumonia, unspecified organism; I50.32 Chronic diastolic (congestive) heart failure; M48.54XA Collapsed vertebra, not elsewhere classified, thoracic region, initial encounter for fracture; M48.56XA Collapsed vertebra, not elsewhere classified, lumbar region, initial encounter for fracture; Z20.822 Contact with and (suspected) exposure to COVID-19; I11.0 Hypertensive heart disease with heart failure; D64.9 Anemia, unspecified; J44.0 Chronic obstructive pulmonary disease with (acute) lower respiratory infection; G89.29 Other chronic pain; M54.9 Dorsalgia, unspecified; R07.89 Other chest pain; I48.0 Paroxysmal atrial fibrillation; K70.31 Alcoholic cirrhosis of liver with ascites; Z86.718 Personal history of other venous thrombosis and embolism; Z86.711 Personal history of pulmonary embolism; Z98.890 Other specified postprocedural states; Z83.6 Family history of other diseases of the respiratory system
CPT/HCPCS: 36415; 36416; 71045; 71275; 72148; 74174; 80048; 80053; 80076; 82553; 83605; 83735; 83880; 84484; 85025; 87040; 87149; 93005; 93010; 94640; 94664; 96365; 96367; 96375; J0692; J1956; J2060; J2270; J2405; J2920; J7512; J7620; Q9967

== ENCOUNTER 2022-03-14 15:17 | Inpatient (IN) | payer OTHER ==
[2022-03-14 16:51] LABS: Hemoglobin 9.2 g/dL (14.0-18.0); Mean Corpuscular HGB CONC 32.8 g/dL (32.0-36.0); Mean Corpuscular Hemoglobin 26.9 pg (27.0-31.0); Mean Corpuscular Volume 81.9 fl (78.0-98.0); Platelet Count 211 10x3/uL (130-400); RBC Distribution Width 18.7 % (11.5-14.5); Red Blood Cell (RBC) Count 3.43 mill/uL (4.70-6.10); White Blood Cell (WBC) Count 17.2 10x3/uL (4.8-10.8)
[2022-03-14 17:15] LABS: ALT (SGPT) 47 U/L (8-55); AST (SGOT) 22 U/L (5-34); Albumin 3.4 g/dL (3.5-5.0); Alkaline Phosphatase 135 U/L (40-110); Anion Gap 14 mmol/L (10-20); BUN (Urea Nitrogen) 16 mg/dL (8.4-25.7); Bilirubin, Total 0.7 mg/dL (0.2-1.2); Calc. Creatinine Clearance 0 mL/min (70-130); Calcium 8.2 mg/dL (7.8-10.44); Carbon Dioxide 24 mmol/L (22-29); Chloride 94 mmol/L (98-107); Estimated GFR 89; Glucose 84 mg/dL (70-105); Potassium 4.1 mmol/L (3.5-5.1); Protein, Total 6.4 g/dL (6.0-8.3); Sodium 128 mmol/L (136-145)
[2022-03-14 17:32] LABS: Band 6 % (5-11); Hypochromia SLIGHT = 6-15 cells (100X) (0-5/hpf); Lymphocytes 5 % (21-51); MDiff Complete? YES; Microcytosis SLIGHT = 6-15 cells (100X) (0-5/hpf); Monocytes 4 % (0-10); Neutrophil 85 % (42-75); Platelet Morphology Comment Appears Adequate
[2022-03-14] MEDS ORDERED: Morphine 4 MG/ML VIAL ONE (18:27)
[2022-03-14 20:06] LABS: Troponin I Less than 0.010 ng/mL (< 0.028)
[2022-03-14] MEDS ORDERED: Acetaminophen 650 MG Suppository PR PRN (20:21)
[2022-03-14] MEDS ORDERED: Furosemide 40 MG/4 ML VIAL SLOW IVP SCH (20:30)
[2022-03-14] MEDS ORDERED: Ipratropium/Albuterol 3 ML NEB NEB PRN (21:08)
[2022-03-14] MEDS ORDERED: Spironolactone 100 MG TAB PO SCH (21:30)
[2022-03-14] MEDS: Acetaminophen 325 MG TAB PO PRN (21:58)
[2022-03-14 23:06] LABS: Troponin I 0.011 ng/mL (< 0.028)
[2022-03-14] MEDS: Ipratropium/Albuterol 3 ML NEB NEB SCH (23:07)
[2022-03-15] MEDS: Ipratropium/Albuterol 3 ML NEB NEB SCH ×6 (03:53→23:00)
[2022-03-15] MEDS ORDERED: Furosemide 40 MG/4 ML VIAL SLOW IVP SCH ×2 (04:45→09:00)
[2022-03-15 06:17] LABS: #Eosinphils 0.1 thou/uL (0.0-0.7); #Lymphocytes 1.1 thou/uL (1.20-3.40); #Monocytes 1.3 thou/uL (0.11-0.59); #Neutrophils 12.9 thou/uL (1.40-6.50); %Basophils 0.2 % (0.0-1.0); %Eosinophils 0.8 % (0.0-10.0); %Lymphocytes 7.1 % (21.0-51.0); %Monocytes 8.3 % (0.0-10.0); %Neutrophils 83.6 % (42.0-75.0); Hemoglobin 9.5 g/dL (14.0-18.0); Mean Corpuscular HGB CONC 31.4 g/dL (32.0-36.0); Mean Corpuscular Volume 82.9 fl (78.0-98.0); Mean Platelet Volume 7.9 fL (7.4-10.4); Platelet Count 219 10x3/uL (130-400); RBC Distribution Width 18.8 % (11.5-14.5); Red Blood Cell (RBC) Count 3.67 mill/uL (4.70-6.10); White Blood Cell (WBC) Count 15.4 10x3/uL (4.8-10.8)
[2022-03-15 06:43] LABS: Anion Gap 13 mmol/L (10-20); BUN (Urea Nitrogen) 15 mg/dL (8.4-25.7); Calc. Creatinine Clearance 122 mL/min (70-130); Calcium 8.2 mg/dL (7.8-10.44); Carbon Dioxide 23 mmol/L (22-29); Chloride 99 mmol/L (98-107); Estimated GFR 100; Glucose 89 mg/dL (70-105); Potassium 3.5 mmol/L (3.5-5.1); Sodium 131 mmol/L (136-145)
[2022-03-15] MEDS ORDERED: Piperacillin/Tazobactam 3.375 GM in Sodium Chloride 0.9% 100 ML IVPB SCH (08:00)
[2022-03-15] MEDS: Spironolactone 100 MG TAB PO SCH (08:52)
[2022-03-15 11:21] LABS: PTT 28.6 sec (22.9-36.1); Prothrombin Time 14.1 sec (12.0-14.7)
[2022-03-15] MEDS: Piperacillin/Tazobactam 3.375 GM in Sodium Chloride 0.9% 100 ML IVPB SCH ×2 (12:04→21:09)
[2022-03-15] MEDS: methylPREDNISolone Sod Succ 40 MG VIAL IVP SCH ×2 (12:04→17:15)
[2022-03-15] MEDS ORDERED: Lidocaine 2% PF 5 ML VIAL ONE (13:11)
[2022-03-15] MEDS ORDERED: Sodium Bicarbonate 2.5 MEQ/5 ML VIAL ONE (13:11)
[2022-03-15] MEDS: Furosemide 40 MG/4 ML VIAL SLOW IVP SCH (15:18)
[2022-03-15] MEDS: Acetaminophen 325 MG TAB PO PRN (15:29)
[2022-03-15] MEDS: cloNIDine 0.2 MG TAB PO SCH (21:10)
[2022-03-15] MEDS: Montelukast Sodium 10 mg Tablet PO SCH (21:10)
[2022-03-16] MEDS: Ondansetron ODT 4 MG TAB PO PRN (00:32)
[2022-03-16] MEDS: Acetaminophen 325 MG TAB PO PRN (00:33)
[2022-03-16] MEDS: methylPREDNISolone Sod Succ 40 MG VIAL IVP SCH ×5 (01:12→23:24)
[2022-03-16] MEDS: Ipratropium/Albuterol 3 ML NEB NEB SCH ×6 (02:49→22:07)
[2022-03-16] MEDS: Piperacillin/Tazobactam 3.375 GM in Sodium Chloride 0.9% 100 ML IVPB SCH ×2 (04:48→11:57)
[2022-03-16] MEDS: traMADol HCl 50 MG TAB PO PRN ×2 (04:49→16:07)
[2022-03-16 05:24] LABS: #Eosinphils 0.1 thou/uL (0.0-0.7); #Lymphocytes 0.2 thou/uL (1.20-3.40); #Monocytes 0.3 thou/uL (0.11-0.59); #Neutrophils 9.3 thou/uL (1.40-6.50); %Eosinophils 0.7 % (0.0-10.0); %Lymphocytes 2.4 % (21.0-51.0); %Monocytes 2.9 % (0.0-10.0); Hemoglobin 7.9 g/dL (14.0-18.0); Mean Corpuscular HGB CONC 31.4 g/dL (32.0-36.0); Mean Corpuscular Hemoglobin 26.3 pg (27.0-31.0); Mean Corpuscular Volume 83.6 fl (78.0-98.0); Platelet Count 184 10x3/uL (130-400); RBC Distribution Width 18.6 % (11.5-14.5); Red Blood Cell (RBC) Count 2.99 mill/uL (4.70-6.10); White Blood Cell (WBC) Count 9.9 10x3/uL (4.8-10.8)
[2022-03-16 05:45] LABS: Anion Gap 12 mmol/L (10-20); BUN (Urea Nitrogen) 17 mg/dL (8.4-25.7); Calc. Creatinine Clearance 122 mL/min (70-130); Carbon Dioxide 24 mmol/L (22-29); Chloride 98 mmol/L (98-107); Estimated GFR 100; Glucose 225 mg/dL (70-105); Potassium 4.4 mmol/L (3.5-5.1); Sodium 130 mmol/L (136-145)
[2022-03-16] MEDS: Amlodipine 10 MG TAB PO SCH (08:53)
[2022-03-16] MEDS: Spironolactone 100 MG TAB PO SCH (08:53)
[2022-03-16] MEDS: cloNIDine 0.2 MG TAB PO SCH ×2 (08:53→21:20)
[2022-03-16] MEDS ORDERED: Dextrose 5% in Water 1,000 ML IV PRN (13:48)
[2022-03-16] MEDS ORDERED: Dextrose 50% Abboject 50 ML SYRINGE SLOW IVP PRN (13:48)
[2022-03-16] MEDS: Furosemide 40 MG/4 ML VIAL SLOW IVP SCH (14:32)
[2022-03-16] MEDS: HumaLOG 300 UNITS/3 ML VIAL SC PRN (17:11)
[2022-03-16] MEDS: Mometasone 200 MCG/Formoterol 5 MCG 120 PUFF INHALER INH SCH (19:27)
[2022-03-16] MEDS: Nystatin 500,000 UNITS/5 ML UDCUP SSW SCH ×2 (19:35→21:20)
[2022-03-16] MEDS: Montelukast Sodium 10 mg Tablet PO SCH (23:25)
[2022-03-17] MEDS: Ipratropium/Albuterol 3 ML NEB NEB SCH ×6 (02:38→23:22)
[2022-03-17 04:05] LABS: #Lymphocytes 0.4 thou/uL (1.20-3.40); #Monocytes 0.4 thou/uL (0.11-0.59); #Neutrophils 13.4 thou/uL (1.40-6.50); %Eosinophils 0.1 % (0.0-10.0); %Lymphocytes 2.6 % (21.0-51.0); %Monocytes 2.8 % (0.0-10.0); %Neutrophils 94.5 % (42.0-75.0); Hemoglobin 8.3 g/dL (14.0-18.0); Mean Corpuscular Hemoglobin 26.3 pg (27.0-31.0); Mean Corpuscular Volume 84.8 fl (78.0-98.0); Mean Platelet Volume 8.1 fL (7.4-10.4); Platelet Count 198 10x3/uL (130-400); Red Blood Cell (RBC) Count 3.15 mill/uL (4.70-6.10); White Blood Cell (WBC) Count 14.2 10x3/uL (4.8-10.8)
[2022-03-17 04:22] LABS: Anion Gap 15 mmol/L (10-20); BUN (Urea Nitrogen) 20 mg/dL (8.4-25.7); Calc. Creatinine Clearance 116 mL/min (70-130); Calcium 8.5 mg/dL (7.8-10.44); Carbon Dioxide 21 mmol/L (22-29); Chloride 96 mmol/L (98-107); Estimated GFR 99; Glucose 229 mg/dL (70-105); Potassium 4.1 mmol/L (3.5-5.1); Sodium 128 mmol/L (136-145)
[2022-03-17] MEDS ORDERED: Guaifenesin DM 100-10/5 ML UDCUP PO PRN (04:58)
[2022-03-17] MEDS: traMADol HCl 50 MG TAB PO PRN ×2 (05:15→21:36)
[2022-03-17] MEDS: HumaLOG 300 UNITS/3 ML VIAL SC PRN ×2 (05:18→12:40)
[2022-03-17] MEDS: methylPREDNISolone Sod Succ 40 MG VIAL IVP SCH ×4 (05:18→23:22)
[2022-03-17] MEDS: Mometasone 200 MCG/Formoterol 5 MCG 120 PUFF INHALER INH SCH ×2 (07:35→18:30)
[2022-03-17] MEDS: Nystatin 500,000 UNITS/5 ML UDCUP SSW SCH ×4 (09:28→21:33)
[2022-03-17] MEDS: cloNIDine 0.2 MG TAB PO SCH ×2 (09:29→21:33)
[2022-03-17] MEDS: Spironolactone 100 MG TAB PO SCH (09:29)
[2022-03-17] MEDS: Amlodipine 10 MG TAB PO SCH (09:29)
[2022-03-17] MEDS: Furosemide 40 MG/4 ML VIAL SLOW IVP SCH (12:39)
[2022-03-17] MEDS ORDERED: Insulin Glargine 30 UNITS/0.3 ML VIAL SC SCH (21:00)
[2022-03-17] MEDS: Montelukast Sodium 10 mg Tablet PO SCH (21:33)
[2022-03-17] MEDS: Melatonin 3 MG TAB PO PRN (23:22)
[2022-03-18] MEDS: Ipratropium/Albuterol 3 ML NEB NEB SCH ×6 (02:14→22:18)
[2022-03-18] MEDS: methylPREDNISolone Sod Succ 40 MG VIAL IVP SCH ×4 (05:07→23:35)
[2022-03-18 06:01] LABS: #Lymphocytes 0.3 thou/uL (1.20-3.40); #Monocytes 0.4 thou/uL (0.11-0.59); #Neutrophils 12.9 thou/uL (1.40-6.50); %Eosinophils 0.2 % (0.0-10.0); %Lymphocytes 2.4 % (21.0-51.0); %Monocytes 3.1 % (0.0-10.0); %Neutrophils 94.3 % (42.0-75.0); Hemoglobin 8.3 g/dL (14.0-18.0); Mean Corpuscular Hemoglobin 26.3 pg (27.0-31.0); Mean Corpuscular Volume 84.7 fl (78.0-98.0); Mean Platelet Volume 7.8 fL (7.4-10.4); Platelet Count 208 10x3/uL (130-400); RBC Distribution Width 18.9 % (11.5-14.5); Red Blood Cell (RBC) Count 3.18 mill/uL (4.70-6.10); White Blood Cell (WBC) Count 13.7 10x3/uL (4.8-10.8)
[2022-03-18 06:31] LABS: Anion Gap 14 mmol/L (10-20); BUN (Urea Nitrogen) 22 mg/dL (8.4-25.7); Calc. Creatinine Clearance 121 mL/min (70-130); Calcium 8.8 mg/dL (7.8-10.44); Carbon Dioxide 25 mmol/L (22-29); Chloride 95 mmol/L (98-107); Estimated GFR 100; Glucose 277 mg/dL (70-105); Potassium 4.2 mmol/L (3.5-5.1); Sodium 130 mmol/L (136-145)
[2022-03-18] MEDS: Nystatin 500,000 UNITS/5 ML UDCUP SSW SCH ×4 (09:09→20:28)
[2022-03-18] MEDS: Spironolactone 100 MG TAB PO SCH (09:09)
[2022-03-18] MEDS: cloNIDine 0.2 MG TAB PO SCH ×2 (09:09→20:29)
[2022-03-18] MEDS: Amlodipine 10 MG TAB PO SCH (09:09)
[2022-03-18] MEDS ORDERED: Furosemide 40 MG/4 ML VIAL SLOW IVP SCH (09:15)
[2022-03-18] MEDS: Insulin Glargine 30 UNITS/0.3 ML VIAL SC SCH (09:23)
[2022-03-18] MEDS: traMADol HCl 50 MG TAB PO PRN ×2 (09:27→20:28)
[2022-03-18] MEDS: Mometasone 200 MCG/Formoterol 5 MCG 120 PUFF INHALER INH SCH ×2 (09:45→19:26)
[2022-03-18] MEDS: HumaLOG 300 UNITS/3 ML VIAL SC PRN ×2 (12:08→18:13)
[2022-03-18] MEDS: Furosemide 40 MG/4 ML VIAL SLOW IVP SCH (15:31)
[2022-03-18] MEDS: Montelukast Sodium 10 mg Tablet PO SCH (20:29)
[2022-03-19] MEDS: Ipratropium/Albuterol 3 ML NEB NEB SCH ×6 (02:17→23:11)
[2022-03-19] MEDS: methylPREDNISolone Sod Succ 40 MG VIAL IVP SCH ×3 (05:23→21:16)
[2022-03-19] MEDS: Furosemide 40 MG/4 ML VIAL SLOW IVP SCH (05:23)
[2022-03-19] MEDS: HumaLOG 300 UNITS/3 ML VIAL SC PRN ×3 (05:30→18:26)
[2022-03-19 06:09] LABS: #Lymphocytes 0.3 thou/uL (1.20-3.40); #Monocytes 0.5 thou/uL (0.11-0.59); #Neutrophils 12.8 thou/uL (1.40-6.50); %Eosinophils 0.1 % (0.0-10.0); %Lymphocytes 1.9 % (21.0-51.0); %Monocytes 3.7 % (0.0-10.0); %Neutrophils 94.4 % (42.0-75.0); Hemoglobin 8.6 g/dL (14.0-18.0); Mean Corpuscular HGB CONC 30.9 g/dL (32.0-36.0); Mean Corpuscular Hemoglobin 25.5 pg (27.0-31.0); Mean Corpuscular Volume 82.7 fl (78.0-98.0); Mean Platelet Volume 8.1 fL (7.4-10.4); Platelet Count 205 10x3/uL (130-400); RBC Distribution Width 18.6 % (11.5-14.5); Red Blood Cell (RBC) Count 3.36 mill/uL (4.70-6.10); White Blood Cell (WBC) Count 13.5 10x3/uL (4.8-10.8)
[2022-03-19 06:34] LABS: Anion Gap 14 mmol/L (10-20); BUN (Urea Nitrogen) 26 mg/dL (8.4-25.7); Calc. Creatinine Clearance 121 mL/min (70-130); Calcium 8.9 mg/dL (7.8-10.44); Carbon Dioxide 28 mmol/L (22-29); Chloride 95 mmol/L (98-107); Estimated GFR 100; Glucose 244 mg/dL (70-105); Potassium 4.2 mmol/L (3.5-5.1); Sodium 133 mmol/L (136-145)
[2022-03-19] MEDS: Mometasone 200 MCG/Formoterol 5 MCG 120 PUFF INHALER INH SCH ×2 (08:12→19:51)
[2022-03-19] MEDS: cloNIDine 0.2 MG TAB PO SCH ×2 (09:40→21:15)
[2022-03-19] MEDS: Nystatin 500,000 UNITS/5 ML UDCUP SSW SCH ×4 (09:40→21:15)
[2022-03-19] MEDS: Insulin Glargine 30 UNITS/0.3 ML VIAL SC SCH (09:40)
[2022-03-19] MEDS: Spironolactone 100 MG TAB PO SCH (09:40)
[2022-03-19] MEDS: Amlodipine 10 MG TAB PO SCH (09:41)
[2022-03-19] MEDS ORDERED: guaiFENesin 200 MG TAB PO PRN (10:20)
[2022-03-19] MEDS ORDERED: Benzonatate 100 MG CAP PO SCH (15:00)
[2022-03-19] MEDS ORDERED: Magnesium Sulfate 3 GM in Sodium Chloride 0.9% 100 ML IVPB SCH (16:15)
[2022-03-19] MEDS: traMADol HCl 50 MG TAB PO PRN (18:23)
[2022-03-19] MEDS: Montelukast Sodium 10 mg Tablet PO SCH (21:15)
[2022-03-19] MEDS: Melatonin 3 MG TAB PO PRN (21:15)
[2022-03-19] MEDS: guaiFENesin ER 600 MG TAB PO SCH (21:15)
[2022-03-19] MEDS: Benzonatate 100 MG CAP PO SCH (21:16)
[2022-03-20] MEDS: traMADol HCl 50 MG TAB PO PRN (00:30)
[2022-03-20] MEDS: Ipratropium/Albuterol 3 ML NEB NEB SCH ×6 (02:32→22:38)
[2022-03-20 05:37] LABS: #Lymphocytes 0.2 thou/uL (1.20-3.40); #Monocytes 0.5 thou/uL (0.11-0.59); #Neutrophils 11.4 thou/uL (1.40-6.50); %Eosinophils 0.3 % (0.0-10.0); %Monocytes 4.2 % (0.0-10.0); %Neutrophils 93.5 % (42.0-75.0); Hemoglobin 7.9 g/dL (14.0-18.0); Mean Corpuscular HGB CONC 31.1 g/dL (32.0-36.0); Mean Corpuscular Volume 83.7 fl (78.0-98.0); Platelet Count 190 10x3/uL (130-400); RBC Distribution Width 18.5 % (11.5-14.5); Red Blood Cell (RBC) Count 3.03 mill/uL (4.70-6.10); White Blood Cell (WBC) Count 12.1 10x3/uL (4.8-10.8)
[2022-03-20 06:00] LABS: Anion Gap 12 mmol/L (10-20); BUN (Urea Nitrogen) 28 mg/dL (8.4-25.7); Calc. Creatinine Clearance 137 mL/min (70-130); Calcium 8.5 mg/dL (7.8-10.44); Carbon Dioxide 30 mmol/L (22-29); Chloride 97 mmol/L (98-107); Estimated GFR 104; Glucose 235 mg/dL (70-105); Potassium 4.6 mmol/L (3.5-5.1); Sodium 134 mmol/L (136-145)
[2022-03-20] MEDS: methylPREDNISolone Sod Succ 40 MG VIAL IVP SCH ×3 (06:09→21:05)
[2022-03-20] MEDS: HumaLOG 300 UNITS/3 ML VIAL SC PRN ×4 (06:09→21:05)
[2022-03-20] MEDS: Mometasone 200 MCG/Formoterol 5 MCG 120 PUFF INHALER INH SCH ×2 (08:09→19:44)
[2022-03-20] MEDS: Spironolactone 100 MG TAB PO SCH (08:38)
[2022-03-20] MEDS: Amlodipine 10 MG TAB PO SCH (08:38)
[2022-03-20] MEDS: Benzonatate 100 MG CAP PO SCH ×3 (08:39→21:05)
[2022-03-20] MEDS: cloNIDine 0.2 MG TAB PO SCH ×2 (08:39→21:10)
[2022-03-20] MEDS: guaiFENesin ER 600 MG TAB PO SCH ×2 (08:39→21:05)
[2022-03-20] MEDS: Nystatin 500,000 UNITS/5 ML UDCUP SSW SCH ×4 (08:40→21:05)
[2022-03-20] MEDS: Insulin Glargine 30 UNITS/0.3 ML VIAL SC SCH (08:40)
[2022-03-20] MEDS ORDERED: Furosemide 40 MG/4 ML VIAL SLOW IVP SCH (09:00)
[2022-03-20 14:33] VITALS: BMI 27.3
[2022-03-20] MEDS: HYDROcodone/Acetaminophen 5/325 mg Tablet PO PRN (21:05)
[2022-03-20] MEDS: Montelukast Sodium 10 mg Tablet PO SCH (21:05)
[2022-03-20] MEDS: Melatonin 3 MG TAB PO PRN (21:05)
[2022-03-21] MEDS: Ipratropium/Albuterol 3 ML NEB NEB SCH ×6 (02:22→21:57)
[2022-03-21] MEDS: methylPREDNISolone Sod Succ 40 MG VIAL IVP SCH ×3 (05:28→21:58)
[2022-03-21] MEDS: HumaLOG 300 UNITS/3 ML VIAL SC PRN ×4 (05:28→21:57)
[2022-03-21] MEDS: HYDROcodone/Acetaminophen 5/325 mg Tablet PO PRN ×2 (05:33→22:06)
[2022-03-21] MEDS: Mometasone 200 MCG/Formoterol 5 MCG 120 PUFF INHALER INH SCH ×2 (08:17→18:57)
[2022-03-21] MEDS: Amlodipine 10 MG TAB PO SCH (09:35)
[2022-03-21] MEDS: Insulin Glargine 30 UNITS/0.3 ML VIAL SC SCH (09:35)
[2022-03-21] MEDS: Furosemide 40 MG TAB PO SCH (09:35)
[2022-03-21] MEDS: Nystatin 500,000 UNITS/5 ML UDCUP SSW SCH ×4 (09:35→21:55)
[2022-03-21] MEDS: Spironolactone 100 MG TAB PO SCH (09:36)
[2022-03-21] MEDS: guaiFENesin ER 600 MG TAB PO SCH ×2 (09:36→21:56)
[2022-03-21] MEDS: cloNIDine 0.2 MG TAB PO SCH ×2 (09:36→21:57)
[2022-03-21] MEDS: Benzonatate 100 MG CAP PO SCH ×3 (09:36→21:56)
[2022-03-21] MEDS ORDERED: Guaifenesin DM 100-10/5 ML UDCUP PO PRN (12:17)
[2022-03-21] MEDS: Melatonin 3 MG TAB PO PRN (21:57)
[2022-03-21] MEDS: Montelukast Sodium 10 mg Tablet PO SCH (21:57)
[2022-03-22] MEDS: Melatonin 3 MG TAB PO PRN ×2 (01:20→21:36)
[2022-03-22] MEDS: Ipratropium/Albuterol 3 ML NEB NEB SCH ×3 (01:51→10:52)
[2022-03-22 06:26] LABS: Hemoglobin 7.9 g/dL (14.0-18.0); Mean Corpuscular HGB CONC 31.9 g/dL (32.0-36.0); Mean Corpuscular Hemoglobin 26.5 pg (27.0-31.0); Mean Corpuscular Volume 83.1 fl (78.0-98.0); Mean Platelet Volume 7.7 fL (7.4-10.4); Platelet Count 189 10x3/uL (130-400); RBC Distribution Width 18.1 % (11.5-14.5); Red Blood Cell (RBC) Count 2.97 mill/uL (4.70-6.10); White Blood Cell (WBC) Count 15.6 10x3/uL (4.8-10.8)
[2022-03-22] MEDS: HYDROcodone/Acetaminophen 5/325 mg Tablet PO PRN ×2 (06:34→21:34)
[2022-03-22] MEDS: methylPREDNISolone Sod Succ 40 MG VIAL IVP SCH ×2 (06:34→17:01)
[2022-03-22] MEDS: HumaLOG 300 UNITS/3 ML VIAL SC PRN ×3 (06:36→20:23)
[2022-03-22 06:46] LABS: Anion Gap 11 mmol/L (10-20); BUN (Urea Nitrogen) 31 mg/dL (8.4-25.7); Calc. Creatinine Clearance 127 mL/min (70-130); Calcium 8.7 mg/dL (7.8-10.44); Carbon Dioxide 30 mmol/L (22-29); Chloride 98 mmol/L (98-107); Estimated GFR 101; Glucose 269 mg/dL (70-105); Potassium 4.7 mmol/L (3.5-5.1); Sodium 134 mmol/L (136-145)
[2022-03-22] MEDS: Mometasone 200 MCG/Formoterol 5 MCG 120 PUFF INHALER INH SCH ×2 (08:22→19:07)
[2022-03-22] MEDS ORDERED: methylPREDNISolone Sod Succ 40 MG VIAL IVP SCH (09:00)
[2022-03-22] MEDS: Nystatin 500,000 UNITS/5 ML UDCUP SSW SCH ×4 (09:19→20:23)
[2022-03-22] MEDS: Benzonatate 100 MG CAP PO SCH ×3 (09:19→20:21)
[2022-03-22] MEDS: Insulin Glargine 30 UNITS/0.3 ML VIAL SC SCH (09:19)
[2022-03-22] MEDS: Furosemide 40 MG TAB PO SCH (09:20)
[2022-03-22] MEDS: guaiFENesin ER 600 MG TAB PO SCH ×2 (09:20→20:21)
[2022-03-22] MEDS: Spironolactone 100 MG TAB PO SCH (09:20)
[2022-03-22] MEDS: Amlodipine 10 MG TAB PO SCH (09:21)
[2022-03-22] MEDS: cloNIDine 0.2 MG TAB PO SCH ×2 (09:21→20:20)
[2022-03-22] MEDS: Ipratropium/Albuterol 3 ML NEB EZPAP SCH ×3 (15:22→22:14)
[2022-03-22] MEDS: Acetaminophen 325 MG TAB PO PRN (20:21)
[2022-03-22] MEDS: Montelukast Sodium 10 mg Tablet PO SCH (20:23)
[2022-03-23] MEDS ORDERED: Furosemide 20 MG/2 ML VIAL SLOW IVP SCH (02:30)
[2022-03-23] MEDS: Ipratropium/Albuterol 3 ML NEB EZPAP SCH ×6 (03:09→21:48)
[2022-03-23] MEDS: methylPREDNISolone Sod Succ 40 MG VIAL IVP SCH (06:25)
[2022-03-23] MEDS: HYDROcodone/Acetaminophen 5/325 mg Tablet PO PRN ×2 (06:31→19:32)
[2022-03-23] MEDS: HumaLOG 300 UNITS/3 ML VIAL SC PRN ×2 (06:37→11:13)
[2022-03-23] MEDS: Mometasone 200 MCG/Formoterol 5 MCG 120 PUFF INHALER INH SCH ×2 (08:41→19:22)
[2022-03-23] MEDS: Insulin Glargine 30 UNITS/0.3 ML VIAL SC SCH (08:57)
[2022-03-23] MEDS: Nystatin 500,000 UNITS/5 ML UDCUP SSW SCH ×4 (08:57→21:56)
[2022-03-23] MEDS: Benzonatate 100 MG CAP PO SCH ×3 (08:57→21:56)
[2022-03-23] MEDS: Amlodipine 10 MG TAB PO SCH (08:58)
[2022-03-23] MEDS: Furosemide 40 MG TAB PO SCH ×2 (08:58→14:20)
[2022-03-23] MEDS: guaiFENesin ER 600 MG TAB PO SCH ×2 (08:58→21:57)
[2022-03-23] MEDS: cloNIDine 0.2 MG TAB PO SCH ×2 (08:58→21:57)
[2022-03-23] MEDS: Spironolactone 100 MG TAB PO SCH (08:58)
[2022-03-23] MEDS: Montelukast Sodium 10 mg Tablet PO SCH (21:57)
[2022-03-23] MEDS: Melatonin 3 MG TAB PO PRN (22:06)
[2022-03-24] MEDS: Ipratropium/Albuterol 3 ML NEB EZPAP SCH ×6 (01:26→22:04)
[2022-03-24] MEDS: HYDROcodone/Acetaminophen 5/325 mg Tablet PO PRN ×3 (03:04→21:29)
[2022-03-24] MEDS: Furosemide 40 MG/4 ML VIAL SLOW IVP SCH ×2 (05:33→14:02)
[2022-03-24] MEDS: Mometasone 200 MCG/Formoterol 5 MCG 120 PUFF INHALER INH SCH ×2 (08:03→18:30)
[2022-03-24] MEDS: Nystatin 500,000 UNITS/5 ML UDCUP SSW SCH ×4 (09:15→21:33)
[2022-03-24] MEDS: Benzonatate 100 MG CAP PO SCH ×3 (09:16→21:28)
[2022-03-24] MEDS: guaiFENesin ER 600 MG TAB PO SCH ×2 (09:16→21:32)
[2022-03-24] MEDS: Insulin Glargine 30 UNITS/0.3 ML VIAL SC SCH (09:16)
[2022-03-24] MEDS: Amlodipine 10 MG TAB PO SCH (09:17)
[2022-03-24] MEDS: Morphine 4 MG/ML VIAL SLOW IVP PRN ×3 (09:17→21:23)
[2022-03-24] MEDS: Spironolactone 100 MG TAB PO SCH (09:17)
[2022-03-24] MEDS: cloNIDine 0.2 MG TAB PO SCH ×2 (09:17→21:30)
[2022-03-24] MEDS: predniSONE 20 MG TAB PO SCH (09:17)
[2022-03-24] MEDS: metroNIDAZOLE 500 MG in Premix Bag 1 BAG IVPB SCH (16:12)
[2022-03-24] MEDS: Melatonin 3 MG TAB PO PRN (21:28)
[2022-03-24] MEDS: Montelukast Sodium 10 mg Tablet PO SCH (21:30)
[2022-03-25] MEDS: metroNIDAZOLE 500 MG in Premix Bag 1 BAG IVPB SCH ×4 (00:01→23:36)
[2022-03-25] MEDS: Morphine 4 MG/ML VIAL SLOW IVP PRN ×4 (00:02→23:36)
[2022-03-25] MEDS: Ondansetron PF 4 MG/2 ML Vial IVP PRN ×2 (00:17→23:56)
[2022-03-25] MEDS ORDERED: Furosemide 20 MG/2 ML VIAL SLOW IVP SCH (01:00)
[2022-03-25] MEDS: Ipratropium/Albuterol 3 ML NEB EZPAP SCH ×6 (02:12→22:25)
[2022-03-25] MEDS: HYDROcodone/Acetaminophen 5/325 mg Tablet PO PRN ×2 (05:36→19:30)
[2022-03-25] MEDS: Furosemide 40 MG/4 ML VIAL SLOW IVP SCH ×2 (05:38→14:54)
[2022-03-25 07:34] LABS: Hemoglobin 9.5 g/dL (14.0-18.0); Mean Corpuscular HGB CONC 31.9 g/dL (32.0-36.0); Mean Corpuscular Volume 84.6 fl (78.0-98.0); Mean Platelet Volume 8.2 fL (7.4-10.4); Platelet Count 234 10x3/uL (130-400); RBC Distribution Width 18.2 % (11.5-14.5); Red Blood Cell (RBC) Count 3.53 mill/uL (4.70-6.10); White Blood Cell (WBC) Count 23.6 10x3/uL (4.8-10.8)
[2022-03-25 08:00] LABS: Anion Gap 19 mmol/L (10-20); BUN (Urea Nitrogen) 24 mg/dL (8.4-25.7); Calc. Creatinine Clearance 115 mL/min (70-130); Carbon Dioxide 19 mmol/L (22-29); Chloride 97 mmol/L (98-107); Estimated GFR 98; Glucose 68 mg/dL (70-105); Magnesium 2.2 mg/dL (1.6-2.6); Phosphorus 4.5 mg/dL (2.3-4.7); Sodium 129 mmol/L (136-145)
[2022-03-25 08:07] LABS: Potassium 6.1 mmol/L (3.5-5.1)
[2022-03-25] MEDS ORDERED: LOKELMA 10 GM PACKET PO SCH (08:30)
[2022-03-25] MEDS: Mometasone 200 MCG/Formoterol 5 MCG 120 PUFF INHALER INH SCH ×2 (08:41→19:20)
[2022-03-25] MEDS ORDERED: Dextrose 10% in Water 250 ML IV SCH ×2 (08:45→09:00)
[2022-03-25] MEDS: predniSONE 20 MG TAB PO SCH (08:56)
[2022-03-25] MEDS: Spironolactone 100 MG TAB PO SCH ×2 (08:56→09:02)
[2022-03-25] MEDS: Amlodipine 10 MG TAB PO SCH (08:56)
[2022-03-25] MEDS: cloNIDine 0.2 MG TAB PO SCH ×2 (08:57→20:32)
[2022-03-25] MEDS: Benzonatate 100 MG CAP PO SCH ×3 (08:57→20:32)
[2022-03-25] MEDS: Nystatin 500,000 UNITS/5 ML UDCUP SSW SCH ×4 (08:57→20:35)
[2022-03-25] MEDS: guaiFENesin ER 600 MG TAB PO SCH ×2 (08:57→20:31)
[2022-03-25 10:31] LABS: Band 45 % (5-11); MDiff Complete? YES; Monocytes 4 % (0-10); Neutrophil 51 % (42-75); Platelet Morphology Comment Appears Adequate; Polychromasia SLIGHT = 2-3 cells (100X) (0-2/hpf)
[2022-03-25 12:39] LABS: Potassium 5.1 mmol/L (3.5-5.1)
[2022-03-25] MEDS ORDERED: Lidocaine 1% PF 5 ML VIAL ONE (13:06)
[2022-03-25] MEDS ORDERED: Sodium Bicarbonate 2.5 MEQ/5 ML VIAL ONE (13:06)
[2022-03-25 16:09] LABS: RBC Count-Automated (BF) 3761 /cu.mm; WBC/Nucleated-Auto (BF) 13538 /cu.mm
[2022-03-25 16:34] LABS: Body Fluid Source Peritoneal Fluid; Clarity Cloudy/Turbid (Clear); Tube # EDTA
[2022-03-25 16:35] LABS: BF Color Yellow
[2022-03-25 16:40] LABS: BF Segmented Neutrophils 75 %; Cell Count Non Hematic 20 %; Lymphocytes 5 %
[2022-03-25 17:08] LABS: Anion Gap 19 mmol/L (10-20); Carbon Dioxide 21 mmol/L (22-29); Chloride 92 mmol/L (98-107); Potassium 4.9 mmol/L (3.5-5.1); Sodium 127 mmol/L (136-145)
[2022-03-25] MEDS: Montelukast Sodium 10 mg Tablet PO SCH (20:31)
[2022-03-25] MEDS: Melatonin 3 MG TAB PO PRN (23:33)
[2022-03-26] MEDS: HYDROcodone/Acetaminophen 5/325 mg Tablet PO PRN (03:21)
[2022-03-26] MEDS: Ipratropium/Albuterol 3 ML NEB EZPAP SCH ×6 (03:50→23:08)
[2022-03-26] MEDS ORDERED: Promethazine HCl 12.5 MG in Sodium Chloride 0.9% 50 ML IVPB SCH (04:30)
[2022-03-26] MEDS: Morphine 4 MG/ML VIAL SLOW IVP PRN (06:18)
[2022-03-26] MEDS: Mometasone 200 MCG/Formoterol 5 MCG 120 PUFF INHALER INH SCH ×2 (08:32→19:09)
[2022-03-26] MEDS: metroNIDAZOLE 500 MG in Premix Bag 1 BAG IVPB SCH ×2 (08:55→17:56)
[2022-03-26] MEDS ORDERED: Furosemide 40 MG/4 ML VIAL SLOW IVP SCH (10:00)
[2022-03-26] MEDS: Amlodipine 10 MG TAB PO SCH (11:08)
[2022-03-26] MEDS: predniSONE 20 MG TAB PO SCH (11:08)
[2022-03-26] MEDS: Benzonatate 100 MG CAP PO SCH ×3 (11:08→20:40)
[2022-03-26] MEDS: guaiFENesin ER 600 MG TAB PO SCH ×2 (11:09→20:41)
[2022-03-26] MEDS: Nystatin 500,000 UNITS/5 ML UDCUP SSW SCH ×4 (11:09→20:41)
[2022-03-26] MEDS: cloNIDine 0.2 MG TAB PO SCH ×2 (11:09→20:41)
[2022-03-26] MEDS: Furosemide 40 MG TAB PO SCH (12:40)
[2022-03-26] MEDS ORDERED: Meropenem 1 GM in Sodium Chloride 0.9% 100 ML IVPB SCH ×2 (14:00→15:30)
[2022-03-26 14:27] LABS: Anion Gap 14 mmol/L (10-20); BUN (Urea Nitrogen) 36 mg/dL (8.4-25.7); Calc. Creatinine Clearance 104 mL/min (70-130); Calcium 8.7 mg/dL (7.8-10.44); Carbon Dioxide 28 mmol/L (22-29); Chloride 89 mmol/L (98-107); Estimated GFR 88; Glucose 118 mg/dL (70-105); Potassium 4.8 mmol/L (3.5-5.1); Sodium 126 mmol/L (136-145)
[2022-03-26 14:31] LABS: Hemoglobin 8.8 g/dL (14.0-18.0); Mean Corpuscular HGB CONC 31.4 g/dL (32.0-36.0); Mean Corpuscular Hemoglobin 26.1 pg (27.0-31.0); Mean Corpuscular Volume 83.1 fl (78.0-98.0); Mean Platelet Volume 8.3 fL (7.4-10.4); Platelet Count 367 10x3/uL (130-400); RBC Distribution Width 17.9 % (11.5-14.5); Red Blood Cell (RBC) Count 3.37 mill/uL (4.70-6.10); White Blood Cell (WBC) Count 32.2 10x3/uL (4.8-10.8)
[2022-03-26 14:48] LABS: Band 21 % (5-11); Lymphocytes 1 % (21-51); MDiff Complete? YES; Metamyelocyte 1 % (0-0); Monocytes 15 % (0-10); Myelocyte 4 % (0-0); Neutrophil 58 % (42-75); Platelet Morphology Comment Appears Adequate; Polychromasia SLIGHT = 2-3 cells (100X) (0-2/hpf)
[2022-03-26] MEDS: Furosemide 40 MG/4 ML VIAL SLOW IVP SCH (15:29)
[2022-03-26 15:55] LABS: Lactic Acid 2.2 mmol/L (0.5-2.2)
[2022-03-26] MEDS: Chloraseptic Spray 180 ml Bottle PO PRN (17:10)
[2022-03-26] MEDS: Pantoprazole 40 MG VIAL IVP SCH (20:48)
[2022-03-26] MEDS: Montelukast Sodium 10 mg Tablet PO SCH (20:48)
[2022-03-26] MEDS: Albumin 25% 25 GM/100 ML BOT IVPB SCH (20:48)
[2022-03-27] MEDS: metroNIDAZOLE 500 MG in Premix Bag 1 BAG IVPB SCH ×4 (00:02→23:26)
[2022-03-27] MEDS: Meropenem 1 GM in Sodium Chloride 0.9% 100 ML IVPB SCH ×3 (00:10→18:24)
[2022-03-27] MEDS: Morphine 4 MG/ML VIAL SLOW IVP PRN ×2 (03:14→23:32)
[2022-03-27] MEDS: Ipratropium/Albuterol 3 ML NEB EZPAP SCH ×6 (03:49→22:49)
[2022-03-27 06:00] LABS: Hemoglobin 7.7 g/dL (14.0-18.0); Mean Corpuscular HGB CONC 30.8 g/dL (32.0-36.0); Mean Corpuscular Hemoglobin 25.5 pg (27.0-31.0); Mean Corpuscular Volume 82.8 fl (78.0-98.0); Mean Platelet Volume 8.6 fL (7.4-10.4); Platelet Count 352 10x3/uL (130-400); RBC Distribution Width 18.3 % (11.5-14.5); Red Blood Cell (RBC) Count 3.02 mill/uL (4.70-6.10)
[2022-03-27 06:22] LABS: ALT (SGPT) 60 U/L (8-55); AST (SGOT) 54 U/L (5-34); Albumin 2.9 g/dL (3.5-5.0); Alkaline Phosphatase 131 U/L (40-110); Anion Gap 21 mmol/L (10-20); BUN (Urea Nitrogen) 48 mg/dL (8.4-25.7); Bilirubin, Total 0.6 mg/dL (0.2-1.2); Calc. Creatinine Clearance 70 mL/min (70-130); Carbon Dioxide 24 mmol/L (22-29); Chloride 90 mmol/L (98-107); Estimated GFR 55; Globulin 3.1 g/dL (2.4-3.5); Glucose 95 mg/dL (70-105); Potassium 4.7 mmol/L (3.5-5.1); Sodium 130 mmol/L (136-145)
[2022-03-27 06:33] LABS: Band 17 % (5-11); Lymphocytes 3 % (21-51); MDiff Complete? YES; Monocytes 4 % (0-10); Myelocyte 4 % (0-0); Neutrophil 72 % (42-75)
[2022-03-27] MEDS: Furosemide 40 MG/4 ML VIAL SLOW IVP SCH (06:34)
[2022-03-27] MEDS: Mometasone 200 MCG/Formoterol 5 MCG 120 PUFF INHALER INH SCH ×2 (06:49→19:23)
[2022-03-27] MEDS ORDERED: Labetalol HCl 100 MG/20 ML VIAL SLOW IVP PRN (09:21)
[2022-03-27] MEDS: Pantoprazole 40 MG VIAL IVP SCH ×2 (09:22→20:29)
[2022-03-27] MEDS: Sodium Chloride 0.9% 1,000 ML IV SCH (09:36)
[2022-03-27] MEDS: Albumin 25% 25 GM/100 ML BOT IVPB SCH ×3 (11:42→20:27)
[2022-03-27] MEDS: predniSONE 20 MG TAB PO SCH (11:49)
[2022-03-27] MEDS: Benzonatate 100 MG CAP PO SCH ×3 (11:50→22:05)
[2022-03-27] MEDS: Amlodipine 10 MG TAB PO SCH (11:50)
[2022-03-27] MEDS: Spironolactone 100 MG TAB PO SCH (11:50)
[2022-03-27] MEDS: cloNIDine 0.2 MG TAB PO SCH ×2 (11:51→22:05)
[2022-03-27] MEDS: Nystatin 500,000 UNITS/5 ML UDCUP SSW SCH ×4 (11:52→20:27)
[2022-03-27] MEDS: guaiFENesin ER 600 MG TAB PO SCH ×2 (11:52→22:06)
[2022-03-27] MEDS ORDERED: Octreotide Acetate 1,250 MCG in Sodium Chloride 0.9% 250 ML 250 ML IVPB SCH (13:15)
[2022-03-27] MEDS: Chloraseptic Spray 180 ml Bottle PO PRN (20:30)
[2022-03-27] MEDS: Montelukast Sodium 10 mg Tablet PO SCH (22:06)
[2022-03-28] MEDS: Meropenem 1 GM in Sodium Chloride 0.9% 100 ML IVPB SCH ×3 (00:38→16:42)
[2022-03-28] MEDS: HumaLOG 300 UNITS/3 ML VIAL SC PRN (01:00)
[2022-03-28] MEDS: Ipratropium/Albuterol 3 ML NEB EZPAP SCH ×6 (03:45→23:34)
[2022-03-28] MEDS ORDERED: Furosemide 40 MG/4 ML VIAL SLOW IVP SCH (06:00)
[2022-03-28] MEDS: Sodium Chloride 0.9% 1,000 ML IV SCH ×2 (06:02→15:29)
[2022-03-28 07:22] LABS: ALT (SGPT) 44 U/L (8-55); AST (SGOT) 35 U/L (5-34); Albumin 3.3 g/dL (3.5-5.0); Alkaline Phosphatase 98 U/L (40-110); Anion Gap 15 mmol/L (10-20); BUN (Urea Nitrogen) 35 mg/dL (8.4-25.7); Calc. Creatinine Clearance 105 mL/min (70-130); Calcium 8.6 mg/dL (7.8-10.44); Carbon Dioxide 23 mmol/L (22-29); Chloride 94 mmol/L (98-107); Estimated GFR 89; Globulin 2.5 g/dL (2.4-3.5); Glucose 135 mg/dL (70-105); Potassium 3.9 mmol/L (3.5-5.1); Protein, Total 5.8 g/dL (6.0-8.3); Sodium 128 mmol/L (136-145)
[2022-03-28 07:28] LABS: INR-International Normal Ratio 1.4; Prothrombin Time 17.9 sec (12.0-14.7)
[2022-03-28 07:39] LABS: Hemoglobin 7.6 g/dL (14.0-18.0); Mean Corpuscular HGB CONC 32.3 g/dL (32.0-36.0); Mean Corpuscular Hemoglobin 26.9 pg (27.0-31.0); Mean Corpuscular Volume 83.2 fl (78.0-98.0); Mean Platelet Volume 7.9 fL (7.4-10.4); Platelet Count 238 10x3/uL (130-400); RBC Distribution Width 17.2 % (11.5-14.5); Red Blood Cell (RBC) Count 2.82 mill/uL (4.70-6.10); White Blood Cell (WBC) Count 18.8 10x3/uL (4.8-10.8)
[2022-03-28] MEDS: Mometasone 200 MCG/Formoterol 5 MCG 120 PUFF INHALER INH SCH ×2 (08:22→19:40)
[2022-03-28 08:26] LABS: Band 21 % (5-11); Hypochromia SLIGHT = 6-15 cells (100X) (0-5/hpf); Lymphocytes 3 % (21-51); MDiff Complete? YES; Metamyelocyte 6 % (0-0); Monocytes 6 % (0-10); Myelocyte 7 % (0-0); Neutrophil 56 % (42-75); Platelet Morphology Comment Appears Adequate; Polychromasia MODERATE = 3-4 cells (100X) (0-2/hpf); Reactive Lymphocytes 1 % (0-10)
[2022-03-28] MEDS: Pantoprazole 40 MG VIAL IVP SCH ×2 (08:55→20:06)
[2022-03-28] MEDS: metroNIDAZOLE 500 MG in Premix Bag 1 BAG IVPB SCH ×3 (08:55→23:13)
[2022-03-28] MEDS: predniSONE 20 MG TAB PO SCH (08:55)
[2022-03-28] MEDS: guaiFENesin ER 600 MG TAB PO SCH ×2 (08:56→20:05)
[2022-03-28] MEDS: Benzonatate 100 MG CAP PO SCH ×3 (08:56→20:05)
[2022-03-28] MEDS: cloNIDine 0.2 MG TAB PO SCH ×2 (08:57→20:12)
[2022-03-28] MEDS: Nystatin 500,000 UNITS/5 ML UDCUP SSW SCH ×4 (08:57→20:06)
[2022-03-28] MEDS: Amlodipine 10 MG TAB PO SCH (09:58)
[2022-03-28] MEDS: Chloraseptic Spray 180 ml Bottle PO PRN ×2 (10:01→22:46)
[2022-03-28] MEDS: Morphine 4 MG/ML VIAL SLOW IVP PRN ×2 (14:18→18:14)
[2022-03-28] MEDS: Montelukast Sodium 10 mg Tablet PO SCH (20:06)
[2022-03-29] MEDS: Meropenem 1 GM in Sodium Chloride 0.9% 100 ML IVPB SCH ×3 (00:16→17:14)
[2022-03-29] MEDS: Morphine 4 MG/ML VIAL SLOW IVP PRN ×2 (02:15→21:21)
[2022-03-29] MEDS: Ipratropium/Albuterol 3 ML NEB EZPAP SCH ×4 (06:57→23:11)
[2022-03-29] MEDS: Mometasone 200 MCG/Formoterol 5 MCG 120 PUFF INHALER INH SCH ×2 (06:57→18:56)
[2022-03-29] MEDS: Benzonatate 100 MG CAP PO SCH ×3 (08:35→21:18)
[2022-03-29] MEDS: Pantoprazole 40 MG VIAL IVP SCH ×2 (08:35→21:16)
[2022-03-29] MEDS: predniSONE 20 MG TAB PO SCH (08:35)
[2022-03-29] MEDS: Nystatin 500,000 UNITS/5 ML UDCUP SSW SCH ×4 (08:35→21:17)
[2022-03-29] MEDS: guaiFENesin ER 600 MG TAB PO SCH ×2 (08:35→21:17)
[2022-03-29] MEDS: Amlodipine 10 MG TAB PO SCH (08:36)
[2022-03-29] MEDS: cloNIDine 0.2 MG TAB PO SCH ×2 (08:36→21:18)
[2022-03-29] MEDS: metroNIDAZOLE 500 MG in Premix Bag 1 BAG IVPB SCH (08:36)
[2022-03-29 10:00] LABS: Hemoglobin 8.2 g/dL (14.0-18.0); Mean Corpuscular HGB CONC 31.3 g/dL (32.0-36.0); Mean Corpuscular Hemoglobin 26.6 pg (27.0-31.0); Platelet Count 225 10x3/uL (130-400); RBC Distribution Width 17.7 % (11.5-14.5); Red Blood Cell (RBC) Count 3.07 mill/uL (4.70-6.10); White Blood Cell (WBC) Count 22.9 10x3/uL (4.8-10.8)
[2022-03-29 10:17] LABS: ALT (SGPT) 45 U/L (8-55); AST (SGOT) 32 U/L (5-34); Alkaline Phosphatase 109 U/L (40-110); Anion Gap 11 mmol/L (10-20); BUN (Urea Nitrogen) 17 mg/dL (8.4-25.7); Bilirubin, Total 0.6 mg/dL (0.2-1.2); Calc. Creatinine Clearance 141 mL/min (70-130); Calcium 8.3 mg/dL (7.8-10.44); Carbon Dioxide 25 mmol/L (22-29); Chloride 97 mmol/L (98-107); Estimated GFR 105; Globulin 2.7 g/dL (2.4-3.5); Glucose 133 mg/dL (70-105); Potassium 4.2 mmol/L (3.5-5.1); Protein, Total 5.7 g/dL (6.0-8.3); Sodium 129 mmol/L (136-145)
[2022-03-29 10:36] LABS: Band 13 % (5-11); Hypochromia SLIGHT = 6-15 cells (100X) (0-5/hpf); MDiff Complete? YES; Metamyelocyte 7 % (0-0); Monocytes 6 % (0-10); Myelocyte 4 % (0-0); Neutrophil 70 % (42-75); Platelet Morphology Comment Appears Adequate; Polychromasia SLIGHT = 2-3 cells (100X) (0-2/hpf)
[2022-03-29] MEDS: Sodium Chloride 0.9% 1,000 ML IV SCH ×2 (14:11→17:14)
[2022-03-29] MEDS: Chloraseptic Spray 180 ml Bottle PO PRN (21:17)
[2022-03-29] MEDS: Montelukast Sodium 10 mg Tablet PO SCH (21:18)
[2022-03-30] MEDS: Meropenem 1 GM in Sodium Chloride 0.9% 100 ML IVPB SCH ×4 (00:17→23:21)
[2022-03-30] MEDS: Melatonin 3 MG TAB PO PRN ×2 (00:18→20:29)
[2022-03-30] MEDS: Ondansetron PF 4 MG/2 ML Vial IVP PRN (01:54)
[2022-03-30] MEDS: Sodium Chloride 0.9% 1,000 ML IV SCH ×2 (05:23→12:05)
[2022-03-30] MEDS: HumaLOG 300 UNITS/3 ML VIAL SC PRN (06:21)
[2022-03-30] MEDS: Mometasone 200 MCG/Formoterol 5 MCG 120 PUFF INHALER INH SCH ×2 (08:27→18:48)
[2022-03-30] MEDS: Ipratropium/Albuterol 3 ML NEB EZPAP SCH ×3 (08:28→18:48)
[2022-03-30] MEDS: Pantoprazole 40 MG VIAL IVP SCH ×2 (11:56→20:17)
[2022-03-30] MEDS: Benzonatate 100 MG CAP PO SCH ×4 (11:56→20:16)
[2022-03-30] MEDS: Nystatin 500,000 UNITS/5 ML UDCUP SSW SCH ×5 (11:56→20:16)
[2022-03-30] MEDS: cloNIDine 0.2 MG TAB PO SCH ×2 (11:57→20:16)
[2022-03-30] MEDS: Amlodipine 10 MG TAB PO SCH (11:57)
[2022-03-30] MEDS: guaiFENesin ER 600 MG TAB PO SCH ×2 (11:57→20:16)
[2022-03-30] MEDS: predniSONE 20 MG TAB PO SCH (11:57)
[2022-03-30] MEDS: Morphine 4 MG/ML VIAL SLOW IVP PRN (17:26)
[2022-03-30] MEDS: Montelukast Sodium 10 mg Tablet PO SCH (20:16)
[2022-03-31] MEDS: Ipratropium/Albuterol 3 ML NEB EZPAP SCH ×4 (00:43→19:30)
[2022-03-31] MEDS: Morphine 4 MG/ML VIAL SLOW IVP PRN ×5 (04:55→22:45)
[2022-03-31 06:21] LABS: Anisocytosis SLIGHT = 6-15 cells (100X) (0-5/hpf); Band 11 % (5-11); Hemoglobin 9.2 g/dL (14.0-18.0); Lymphocytes 5 % (21-51); MDiff Complete? YES; Mean Corpuscular HGB CONC 32.6 g/dL (32.0-36.0); Mean Corpuscular Hemoglobin 27.8 pg (27.0-31.0); Mean Corpuscular Volume 85.4 fl (78.0-98.0); Monocytes 2 % (0-10); Myelocyte 1 % (0-0); Neutrophil 81 % (42-75); Platelet Count 226 10x3/uL (130-400); Platelet Morphology Comment Appears Adequate; RBC Distribution Width 18.3 % (11.5-14.5); Red Blood Cell (RBC) Count 3.29 mill/uL (4.70-6.10); White Blood Cell (WBC) Count 25.7 10x3/uL (4.8-10.8)
[2022-03-31] MEDS: Mometasone 200 MCG/Formoterol 5 MCG 120 PUFF INHALER INH SCH ×2 (06:45→19:31)
[2022-03-31] MEDS: Nystatin 500,000 UNITS/5 ML UDCUP SSW SCH ×4 (08:59→21:03)
[2022-03-31] MEDS: Meropenem 1 GM in Sodium Chloride 0.9% 100 ML IVPB SCH ×2 (08:59→14:47)
[2022-03-31] MEDS: Pantoprazole 40 MG VIAL IVP SCH ×2 (09:00→20:50)
[2022-03-31] MEDS: guaiFENesin ER 600 MG TAB PO SCH ×2 (09:00→21:03)
[2022-03-31] MEDS: predniSONE 20 MG TAB PO SCH (09:00)
[2022-03-31] MEDS: Furosemide 40 MG/4 ML VIAL SLOW IVP SCH (09:00)
[2022-03-31] MEDS: cloNIDine 0.2 MG TAB PO SCH ×2 (09:02→21:04)
[2022-03-31] MEDS: Amlodipine 10 MG TAB PO SCH (09:02)
[2022-03-31] MEDS: Benzonatate 100 MG CAP PO SCH ×3 (09:02→21:04)
[2022-03-31] MEDS: Sodium Chloride 0.9% 1,000 ML IV SCH (11:51)
[2022-03-31] MEDS ORDERED: predniSONE 20 MG TAB PO SCH (14:45)
[2022-03-31] MEDS: Bisacodyl 10 MG SUPP PR SCH (18:25)
[2022-03-31] MEDS: Melatonin 3 MG TAB PO PRN (21:04)
[2022-03-31] MEDS: Montelukast Sodium 10 mg Tablet PO SCH (21:04)
[2022-04-01] MEDS: Ipratropium/Albuterol 3 ML NEB EZPAP SCH ×4 (00:53→19:43)
[2022-04-01] MEDS: Meropenem 1 GM in Sodium Chloride 0.9% 100 ML IVPB SCH ×4 (00:55→23:59)
[2022-04-01] MEDS: Bisacodyl 10 MG SUPP PR SCH ×2 (01:00→09:19)
[2022-04-01 06:24] LABS: Hemoglobin 9.8 g/dL (14.0-18.0); Mean Corpuscular HGB CONC 32.6 g/dL (32.0-36.0); Mean Corpuscular Hemoglobin 27.5 pg (27.0-31.0); Mean Corpuscular Volume 84.2 fl (78.0-98.0); Mean Platelet Volume 9.9 fL (7.4-10.4); Platelet Count 151 10x3/uL (130-400); RBC Distribution Width 19.1 % (11.5-14.5); Red Blood Cell (RBC) Count 3.57 mill/uL (4.70-6.10); White Blood Cell (WBC) Count 31.9 10x3/uL (4.8-10.8)
[2022-04-01 06:36] LABS: Anion Gap 14 mmol/L (10-20); BUN (Urea Nitrogen) 12 mg/dL (8.4-25.7); Calc. Creatinine Clearance 172 mL/min (70-130); Calcium 7.9 mg/dL (7.8-10.44); Carbon Dioxide 20 mmol/L (22-29); Chloride 101 mmol/L (98-107); Estimated GFR 111; Glucose 102 mg/dL (70-105); Potassium 4.7 mmol/L (3.5-5.1); Sodium 130 mmol/L (136-145)
[2022-04-01] MEDS: Mometasone 200 MCG/Formoterol 5 MCG 120 PUFF INHALER INH SCH ×2 (08:20→19:45)
[2022-04-01] MEDS: predniSONE 20 MG TAB PO SCH (08:55)
[2022-04-01] MEDS: Pantoprazole 40 MG VIAL IVP SCH ×2 (09:15→20:43)
[2022-04-01] MEDS: Benzonatate 100 MG CAP PO SCH ×3 (09:15→20:44)
[2022-04-01] MEDS: Amlodipine 10 MG TAB PO SCH (09:15)
[2022-04-01] MEDS: guaiFENesin ER 600 MG TAB PO SCH ×2 (09:16→20:43)
[2022-04-01] MEDS: cloNIDine 0.2 MG TAB PO SCH ×2 (09:19→20:43)
[2022-04-01] MEDS: Nystatin 500,000 UNITS/5 ML UDCUP SSW SCH ×4 (09:19→22:03)
[2022-04-01 13:19] LABS: RBC Count-Automated (BF) 1950 /cu.mm; WBC/Nucleated-Auto (BF) 260 /cu.mm
[2022-04-01 13:50] LABS: BF Color Yellow; Body Fluid Source Ascites Body Fluid; Clarity Hazy (Clear); Tube # EDTA
[2022-04-01 14:14] LABS: BF Segmented Neutrophils 39 %; Cell Count Non Hematic 18 %; Lymphocytes 43 %
[2022-04-01] MEDS: Melatonin 3 MG TAB PO PRN (20:43)
[2022-04-01] MEDS: Montelukast Sodium 10 mg Tablet PO SCH (20:43)
[2022-04-01] MEDS: Morphine 4 MG/ML VIAL SLOW IVP PRN (21:01)
[2022-04-01] MEDS: Chloraseptic Spray 180 ml Bottle PO PRN (21:01)
[2022-04-02] MEDS: Ipratropium/Albuterol 3 ML NEB EZPAP SCH ×4 (00:45→19:43)
[2022-04-02] MEDS: Morphine 4 MG/ML VIAL SLOW IVP PRN ×2 (00:57→20:57)
[2022-04-02] MEDS: Mometasone 200 MCG/Formoterol 5 MCG 120 PUFF INHALER INH SCH ×2 (07:33→19:43)
[2022-04-02 08:26] LABS: Hemoglobin 9.6 g/dL (14.0-18.0); Mean Corpuscular HGB CONC 31.4 g/dL (32.0-36.0); Mean Platelet Volume 8.5 fL (7.4-10.4); Platelet Count 234 10x3/uL (130-400); RBC Distribution Width 18.6 % (11.5-14.5); Red Blood Cell (RBC) Count 3.57 mill/uL (4.70-6.10); White Blood Cell (WBC) Count 21.4 10x3/uL (4.8-10.8)
[2022-04-02] MEDS: Meropenem 1 GM in Sodium Chloride 0.9% 100 ML IVPB SCH ×3 (09:09→23:03)
[2022-04-02] MEDS: Nystatin 500,000 UNITS/5 ML UDCUP SSW SCH ×4 (09:10→20:36)
[2022-04-02] MEDS: Amlodipine 10 MG TAB PO SCH (09:10)
[2022-04-02] MEDS: guaiFENesin ER 600 MG TAB PO SCH ×2 (09:10→20:35)
[2022-04-02] MEDS: Benzonatate 100 MG CAP PO SCH ×3 (09:10→20:34)
[2022-04-02] MEDS: Pantoprazole 40 MG VIAL IVP SCH ×2 (09:10→20:34)
[2022-04-02] MEDS: Furosemide 40 MG/4 ML VIAL SLOW IVP SCH (09:10)
[2022-04-02] MEDS: cloNIDine 0.2 MG TAB PO SCH ×2 (09:11→20:35)
[2022-04-02] MEDS: predniSONE 20 MG TAB PO SCH (09:11)
[2022-04-02 10:07] LABS: Band 12 % (5-11); Lymphocytes 7 % (21-51); MDiff Complete? YES; Metamyelocyte 1 % (0-0); Monocytes 2 % (0-10); Myelocyte 5 % (0-0); Neutrophil 73 % (42-75); Platelet Morphology Comment Appears Adequate; Polychromasia SLIGHT = 2-3 cells (100X) (0-2/hpf)
[2022-04-02] MEDS: HumaLOG 300 UNITS/3 ML VIAL SC PRN (18:48)
[2022-04-02] MEDS: Montelukast Sodium 10 mg Tablet PO SCH (20:35)
[2022-04-02] MEDS: Melatonin 3 MG TAB PO PRN (20:58)
[2022-04-03] MEDS: Ipratropium/Albuterol 3 ML NEB EZPAP SCH ×5 (00:31→23:44)
[2022-04-03] MEDS: Morphine 4 MG/ML VIAL SLOW IVP PRN ×4 (04:24→20:44)
[2022-04-03 05:46] LABS: Hemoglobin 9.3 g/dL (14.0-18.0); Mean Corpuscular HGB CONC 31.8 g/dL (32.0-36.0); Mean Corpuscular Hemoglobin 27.4 pg (27.0-31.0); Mean Corpuscular Volume 85.9 fl (78.0-98.0); Mean Platelet Volume 8.8 fL (7.4-10.4); Platelet Count 251 10x3/uL (130-400); RBC Distribution Width 19.1 % (11.5-14.5); Red Blood Cell (RBC) Count 3.38 mill/uL (4.70-6.10)
[2022-04-03 06:18] LABS: Hypochromia SLIGHT = 6-15 cells (100X) (0-5/hpf); Lymphocytes 23 % (21-51); MDiff Complete? YES; Monocytes 6 % (0-10); Neutrophil 71 % (42-75); Platelet Morphology Comment Appears Decreased; White Blood Cell (WBC) Count 16.3 10x3/uL (4.8-10.8)
[2022-04-03] MEDS: Meropenem 1 GM in Sodium Chloride 0.9% 100 ML IVPB SCH ×3 (08:48→23:52)
[2022-04-03] MEDS: Amlodipine 10 MG TAB PO SCH (08:48)
[2022-04-03] MEDS: guaiFENesin ER 600 MG TAB PO SCH ×2 (08:49→20:30)
[2022-04-03] MEDS: predniSONE 20 MG TAB PO SCH (08:49)
[2022-04-03] MEDS: Furosemide 40 MG/4 ML VIAL SLOW IVP SCH (08:50)
[2022-04-03] MEDS: Benzonatate 100 MG CAP PO SCH ×3 (08:50→20:32)
[2022-04-03] MEDS: Nystatin 500,000 UNITS/5 ML UDCUP SSW SCH ×4 (08:50→20:32)
[2022-04-03] MEDS: cloNIDine 0.2 MG TAB PO SCH ×2 (08:50→20:31)
[2022-04-03] MEDS: Pantoprazole 40 MG VIAL IVP SCH (08:51)
[2022-04-03] MEDS: Mometasone 200 MCG/Formoterol 5 MCG 120 PUFF INHALER INH SCH ×2 (09:01→19:14)
[2022-04-03] MEDS: Rifaximin 550 MG TAB PO SCH (20:31)
[2022-04-03] MEDS: Montelukast Sodium 10 mg Tablet PO SCH (20:31)
[2022-04-03] MEDS: Melatonin 3 MG TAB PO PRN (20:31)
[2022-04-03] MEDS: Apixaban 5 MG TAB PO SCH (20:32)
[2022-04-04 05:51] LABS: Hemoglobin 8.6 g/dL (14.0-18.0); Mean Corpuscular HGB CONC 31.7 g/dL (32.0-36.0); Mean Corpuscular Hemoglobin 26.9 pg (27.0-31.0); Mean Corpuscular Volume 84.8 fl (78.0-98.0); Mean Platelet Volume 9.1 fL (7.4-10.4); Platelet Count 249 10x3/uL (130-400); RBC Distribution Width 18.6 % (11.5-14.5); Red Blood Cell (RBC) Count 3.18 mill/uL (4.70-6.10)
[2022-04-04 06:26] LABS: Anisocytosis SLIGHT = 6-15 cells (100X) (0-5/hpf); Band 5 % (5-11); Lymphocytes 9 % (21-51); MDiff Complete? YES; Metamyelocyte 2 % (0-0); Monocytes 7 % (0-10); Myelocyte 3 % (0-0); Neutrophil 74 % (42-75); Platelet Morphology Comment Appears Adequate; White Blood Cell (WBC) Count 13.1 10x3/uL (4.8-10.8)
[2022-04-04] MEDS: Ipratropium/Albuterol 3 ML NEB EZPAP SCH ×3 (06:45→19:16)
[2022-04-04] MEDS: Mometasone 200 MCG/Formoterol 5 MCG 120 PUFF INHALER INH SCH ×2 (06:45→19:21)
[2022-04-04] MEDS: predniSONE 20 MG TAB PO SCH (07:30)
[2022-04-04] MEDS: Furosemide 40 MG TAB PO SCH (07:30)
[2022-04-04] MEDS: Meropenem 1 GM in Sodium Chloride 0.9% 100 ML IVPB SCH ×2 (07:31→15:16)
[2022-04-04] MEDS: Acetaminophen 325 MG TAB PO PRN ×2 (07:34→20:36)
[2022-04-04] MEDS: Nystatin 500,000 UNITS/5 ML UDCUP SSW SCH ×4 (09:01→20:34)
[2022-04-04] MEDS: Rifaximin 550 MG TAB PO SCH ×2 (09:03→20:36)
[2022-04-04] MEDS: Amlodipine 10 MG TAB PO SCH (09:03)
[2022-04-04] MEDS: cloNIDine 0.2 MG TAB PO SCH ×2 (09:03→22:42)
[2022-04-04] MEDS: Benzonatate 100 MG CAP PO SCH ×3 (09:03→20:35)
[2022-04-04] MEDS: Apixaban 5 MG TAB PO SCH ×2 (09:03→20:35)
[2022-04-04] MEDS: guaiFENesin ER 600 MG TAB PO SCH ×2 (09:03→20:34)
[2022-04-04] MEDS ORDERED: Polyethylene Glycol 3350 17 GM Packet PO SCH (17:15)
[2022-04-04] MEDS: NEOMYCIN-POLYMYXIN-HC EAR SUSP 200 DROP/10 ML BOT EA EAR SCH (20:34)
[2022-04-04] MEDS: Montelukast Sodium 10 mg Tablet PO SCH (20:35)
[2022-04-04] MEDS: Melatonin 3 MG TAB PO PRN (20:36)
[2022-04-05] MEDS: Ipratropium/Albuterol 3 ML NEB EZPAP SCH ×5 (01:21→23:26)
[2022-04-05] MEDS ORDERED: Bisacodyl 10 MG SUPP PR SCH (02:00)
[2022-04-05] MEDS ORDERED: Milk Of Magnesia 30 ML UDCUP PO SCH (02:00)
[2022-04-05] MEDS ORDERED: Fleet Enema 133 ML BOT PR SCH (02:15)
[2022-04-05] MEDS: Nystatin Powder 15 GM BOT TOP PRN (06:34)
[2022-04-05] MEDS: Mometasone 200 MCG/Formoterol 5 MCG 120 PUFF INHALER INH SCH ×2 (07:22→18:50)
[2022-04-05] MEDS: Polyethylene Glycol 3350 17 GM Packet PO SCH (09:00)
[2022-04-05] MEDS: Nystatin 500,000 UNITS/5 ML UDCUP SSW SCH ×4 (09:00→20:54)
[2022-04-05] MEDS: guaiFENesin ER 600 MG TAB PO SCH ×2 (09:00→20:58)
[2022-04-05] MEDS: Benzonatate 100 MG CAP PO SCH ×3 (09:00→20:55)
[2022-04-05] MEDS: cloNIDine 0.2 MG TAB PO SCH ×2 (09:01→20:57)
[2022-04-05] MEDS: Amlodipine 10 MG TAB PO SCH (09:01)
[2022-04-05] MEDS: NEOMYCIN-POLYMYXIN-HC EAR SUSP 200 DROP/10 ML BOT EA EAR SCH ×3 (09:01→20:54)
[2022-04-05] MEDS: Furosemide 40 MG TAB PO SCH (09:01)
[2022-04-05] MEDS: predniSONE 20 MG TAB PO SCH (09:01)
[2022-04-05] MEDS: Rifaximin 550 MG TAB PO SCH ×2 (09:01→20:58)
[2022-04-05] MEDS: Apixaban 5 MG TAB PO SCH ×2 (09:01→20:58)
[2022-04-05] MEDS: Morphine 4 MG/ML VIAL SLOW IVP PRN ×2 (09:24→20:58)
[2022-04-05] MEDS: Melatonin 3 MG TAB PO PRN (20:57)
[2022-04-05] MEDS: Montelukast Sodium 10 mg Tablet PO SCH (20:58)
[2022-04-06] MEDS: Mometasone 200 MCG/Formoterol 5 MCG 120 PUFF INHALER INH SCH ×2 (06:35→19:21)
[2022-04-06] MEDS: Ipratropium/Albuterol 3 ML NEB EZPAP SCH ×4 (06:35→23:45)
[2022-04-06] MEDS: Ciprofloxacin 500 MG TAB PO SCH (09:04)
[2022-04-06] MEDS: Nystatin 500,000 UNITS/5 ML UDCUP SSW SCH ×4 (09:04→20:50)
[2022-04-06] MEDS: guaiFENesin ER 600 MG TAB PO SCH ×2 (09:04→20:50)
[2022-04-06] MEDS: Polyethylene Glycol 3350 17 GM Packet PO SCH (09:04)
[2022-04-06] MEDS: Rifaximin 550 MG TAB PO SCH ×2 (09:04→20:52)
[2022-04-06] MEDS: cloNIDine 0.2 MG TAB PO SCH ×2 (09:04→20:48)
[2022-04-06] MEDS: Apixaban 5 MG TAB PO SCH ×2 (09:04→20:52)
[2022-04-06] MEDS: predniSONE 20 MG TAB PO SCH (09:05)
[2022-04-06] MEDS: Furosemide 40 MG TAB PO SCH (09:05)
[2022-04-06] MEDS: NEOMYCIN-POLYMYXIN-HC EAR SUSP 200 DROP/10 ML BOT EA EAR SCH ×3 (09:05→20:53)
[2022-04-06] MEDS: Benzonatate 100 MG CAP PO SCH ×3 (09:05→20:51)
[2022-04-06] MEDS: Amlodipine 10 MG TAB PO SCH (09:05)
[2022-04-06] MEDS: Morphine 4 MG/ML VIAL SLOW IVP PRN (12:28)
[2022-04-06 12:45] LABS: #Eosinphils 0.1 thou/uL (0.0-0.7); #Lymphocytes 1.5 thou/uL (1.20-3.40); #Monocytes 0.9 thou/uL (0.11-0.59); #Neutrophils 9.9 thou/uL (1.40-6.50); %Basophils 0.2 % (0.0-1.0); %Eosinophils 0.7 % (0.0-10.0); %Lymphocytes 12.3 % (21.0-51.0); %Monocytes 7.2 % (0.0-10.0); %Neutrophils 79.7 % (42.0-75.0); Hemoglobin 9.5 g/dL (14.0-18.0); Mean Corpuscular HGB CONC 32.5 g/dL (32.0-36.0); Mean Corpuscular Hemoglobin 27.8 pg (27.0-31.0); Mean Corpuscular Volume 85.3 fl (78.0-98.0); Mean Platelet Volume 7.7 fL (7.4-10.4); Platelet Count 451 10x3/uL (130-400); RBC Distribution Width 18.9 % (11.5-14.5); Red Blood Cell (RBC) Count 3.41 mill/uL (4.70-6.10); White Blood Cell (WBC) Count 12.4 10x3/uL (4.8-10.8)
[2022-04-06 13:10] LABS: ALT (SGPT) 23 U/L (8-55); AST (SGOT) 27 U/L (5-34); Albumin 2.5 g/dL (3.5-5.0); Alkaline Phosphatase 265 U/L (40-110); Anion Gap 11 mmol/L (10-20); BUN (Urea Nitrogen) 13 mg/dL (8.4-25.7); Bilirubin, Total 0.3 mg/dL (0.2-1.2); Calc. Creatinine Clearance 178 mL/min (70-130); Calcium 7.7 mg/dL (7.8-10.44); Carbon Dioxide 23 mmol/L (22-29); Estimated GFR 112; Globulin 3.2 g/dL (2.4-3.5); Glucose 105 mg/dL (70-105); Protein, Total 5.7 g/dL (6.0-8.3)
[2022-04-06 13:24] LABS: Chloride 97 mmol/L (98-107); Potassium 4.8 mmol/L (3.5-5.1); Sodium 126 mmol/L (136-145)
[2022-04-06] MEDS: Nystatin Powder 15 GM BOT TOP PRN (15:12)
[2022-04-06] MEDS: Montelukast Sodium 10 mg Tablet PO SCH (20:50)
[2022-04-06] MEDS: Melatonin 3 MG TAB PO PRN (20:52)
[2022-04-06] MEDS ORDERED: Ketorolac Tromethamine 30 MG/ML VIAL IVP SCH (22:00)
[2022-04-07] MEDS: Ipratropium/Albuterol 3 ML NEB EZPAP SCH ×3 (06:44→19:56)
[2022-04-07] MEDS: Mometasone 200 MCG/Formoterol 5 MCG 120 PUFF INHALER INH SCH ×2 (06:44→19:56)
[2022-04-07] MEDS: Nystatin 500,000 UNITS/5 ML UDCUP SSW SCH ×4 (08:36→20:22)
[2022-04-07] MEDS: Polyethylene Glycol 3350 17 GM Packet PO SCH (08:36)
[2022-04-07] MEDS: NEOMYCIN-POLYMYXIN-HC EAR SUSP 200 DROP/10 ML BOT EA EAR SCH ×3 (08:37→20:22)
[2022-04-07] MEDS: Benzonatate 100 MG CAP PO SCH ×3 (08:37→20:23)
[2022-04-07] MEDS: guaiFENesin ER 600 MG TAB PO SCH ×2 (08:37→20:24)
[2022-04-07] MEDS: Apixaban 5 MG TAB PO SCH ×2 (08:37→20:23)
[2022-04-07] MEDS: Amlodipine 10 MG TAB PO SCH (08:37)
[2022-04-07] MEDS: Rifaximin 550 MG TAB PO SCH ×2 (08:37→20:24)
[2022-04-07] MEDS: Furosemide 40 MG TAB PO SCH (08:38)
[2022-04-07] MEDS: cloNIDine 0.2 MG TAB PO SCH ×2 (08:38→20:25)
[2022-04-07] MEDS: predniSONE 20 MG TAB PO SCH (08:38)
[2022-04-07] MEDS: Spironolactone 100 MG TAB PO SCH (08:38)
[2022-04-07] MEDS: Ciprofloxacin 500 MG TAB PO SCH (08:38)
[2022-04-07] MEDS ORDERED: Fleet Enema 133 ML BOT PR SCH (16:00)
[2022-04-07] MEDS ORDERED: Ipratropium Bromide 2.5 ml Neb ONE (18:29)
[2022-04-07] MEDS: Melatonin 3 MG TAB PO PRN (20:23)
[2022-04-07] MEDS: Morphine 4 MG/ML VIAL SLOW IVP PRN (20:25)
[2022-04-07] MEDS: Montelukast Sodium 10 mg Tablet PO SCH (20:25)
[2022-04-08] MEDS ORDERED: Ipratropium Bromide 2.5 ml Neb ONE (00:08)
[2022-04-08] MEDS: Ipratropium/Albuterol 3 ML NEB EZPAP SCH ×3 (00:28→14:00)
[2022-04-08] MEDS: Morphine 4 MG/ML VIAL SLOW IVP PRN ×3 (03:22→20:10)
[2022-04-08] MEDS: Amlodipine 10 MG TAB PO SCH (08:18)
[2022-04-08] MEDS: Ciprofloxacin 500 MG TAB PO SCH (08:18)
[2022-04-08] MEDS: Nystatin 500,000 UNITS/5 ML UDCUP SSW SCH ×4 (08:18→20:21)
[2022-04-08] MEDS: Furosemide 40 MG TAB PO SCH (08:18)
[2022-04-08] MEDS: Benzonatate 100 MG CAP PO SCH ×3 (08:18→20:19)
[2022-04-08] MEDS: Apixaban 5 MG TAB PO SCH ×2 (08:18→20:19)
[2022-04-08] MEDS: predniSONE 20 MG TAB PO SCH (08:19)
[2022-04-08] MEDS: Spironolactone 100 MG TAB PO SCH (08:19)
[2022-04-08] MEDS: Rifaximin 550 MG TAB PO SCH ×2 (08:19→20:18)
[2022-04-08] MEDS: guaiFENesin ER 600 MG TAB PO SCH ×2 (08:19→20:18)
[2022-04-08] MEDS: cloNIDine 0.2 MG TAB PO SCH ×2 (08:20→20:22)
[2022-04-08] MEDS: Polyethylene Glycol 3350 17 GM Packet PO SCH (08:22)
[2022-04-08] MEDS: NEOMYCIN-POLYMYXIN-HC EAR SUSP 200 DROP/10 ML BOT EA EAR SCH ×3 (08:30→20:21)
[2022-04-08] MEDS: Mometasone 200 MCG/Formoterol 5 MCG 120 PUFF INHALER INH SCH ×2 (08:52→19:39)
[2022-04-08] MEDS: Albuterol 200 PUFF (6.7GM INHALER) INH SCH (19:39)
[2022-04-08] MEDS: Ipratropium Oral Inhaler INH SCH (19:40)
[2022-04-08] MEDS: Montelukast Sodium 10 mg Tablet PO SCH (20:18)
[2022-04-08] MEDS: Melatonin 3 MG TAB PO PRN (20:21)
[2022-04-09] MEDS: Morphine 4 MG/ML VIAL SLOW IVP PRN ×2 (01:37→23:40)
[2022-04-09] MEDS: Nystatin 500,000 UNITS/5 ML UDCUP SSW SCH ×4 (08:47→20:39)
[2022-04-09] MEDS: Polyethylene Glycol 3350 17 GM Packet PO SCH ×2 (08:47→08:50)
[2022-04-09] MEDS: Rifaximin 550 MG TAB PO SCH ×2 (08:48→20:36)
[2022-04-09] MEDS: cloNIDine 0.2 MG TAB PO SCH ×2 (08:48→20:35)
[2022-04-09] MEDS: Ciprofloxacin 500 MG TAB PO SCH (08:48)
[2022-04-09] MEDS: Benzonatate 100 MG CAP PO SCH ×3 (08:48→20:36)
[2022-04-09] MEDS: guaiFENesin ER 600 MG TAB PO SCH ×2 (08:48→20:36)
[2022-04-09] MEDS: Furosemide 40 MG TAB PO SCH (08:48)
[2022-04-09] MEDS: Spironolactone 100 MG TAB PO SCH (08:48)
[2022-04-09] MEDS: Apixaban 5 MG TAB PO SCH ×2 (08:48→20:36)
[2022-04-09] MEDS: NEOMYCIN-POLYMYXIN-HC EAR SUSP 200 DROP/10 ML BOT EA EAR SCH ×3 (08:49→20:39)
[2022-04-09] MEDS: Albuterol 200 PUFF (6.7GM INHALER) INH SCH ×4 (13:10→19:43)
[2022-04-09] MEDS: Mometasone 200 MCG/Formoterol 5 MCG 120 PUFF INHALER INH SCH ×2 (13:10→19:42)
[2022-04-09] MEDS: Ipratropium Oral Inhaler INH SCH ×3 (13:11→19:43)
[2022-04-09 17:48] LABS: Anion Gap 11 mmol/L (10-20); BUN (Urea Nitrogen) 14 mg/dL (8.4-25.7); Calc. Creatinine Clearance 181 mL/min (70-130); Calcium 7.8 mg/dL (7.8-10.44); Carbon Dioxide 23 mmol/L (22-29); Chloride 97 mmol/L (98-107); Estimated GFR 113; Glucose 104 mg/dL (70-105); Potassium 4.1 mmol/L (3.5-5.1); Sodium 127 mmol/L (136-145)
[2022-04-09 18:32] LABS: Band 6 % (5-11); Hemoglobin 8.8 g/dL (14.0-18.0); Lymphocytes 17 % (21-51); MDiff Complete? YES; Mean Corpuscular HGB CONC 32.3 g/dL (32.0-36.0); Mean Corpuscular Hemoglobin 27.7 pg (27.0-31.0); Mean Corpuscular Volume 85.7 fl (78.0-98.0); Mean Platelet Volume 7.3 fL (7.4-10.4); Monocytes 8 % (0-10); Myelocyte 7 % (0-0); Neutrophil 61 % (42-75); Platelet Count 434 10x3/uL (130-400); Platelet Morphology Comment Appears Increased; RBC Distribution Width 18.3 % (11.5-14.5); RBC Morphology Normal; Reactive Lymphocytes 1 % (0-10); Red Blood Cell (RBC) Count 3.18 mill/uL (4.70-6.10); White Blood Cell (WBC) Count 12.1 10x3/uL (4.8-10.8)
[2022-04-09] MEDS: Ketorolac Tromethamine 30 MG/ML VIAL IVP SCH (20:34)
[2022-04-09] MEDS: Melatonin 3 MG TAB PO PRN (20:35)
[2022-04-09] MEDS: Montelukast Sodium 10 mg Tablet PO SCH (20:36)
[2022-04-10] MEDS: Albuterol 200 PUFF (6.7GM INHALER) INH SCH ×4 (06:44→19:11)
[2022-04-10] MEDS: Mometasone 200 MCG/Formoterol 5 MCG 120 PUFF INHALER INH SCH ×2 (06:44→19:12)
[2022-04-10] MEDS: Ipratropium Oral Inhaler INH SCH ×4 (06:44→19:12)
[2022-04-10] MEDS: Rifaximin 550 MG TAB PO SCH ×2 (08:43→20:01)
[2022-04-10] MEDS: Nystatin 500,000 UNITS/5 ML UDCUP SSW SCH ×4 (08:43→20:00)
[2022-04-10] MEDS: Furosemide 40 MG TAB PO SCH (08:44)
[2022-04-10] MEDS: Apixaban 5 MG TAB PO SCH ×2 (08:44→20:01)
[2022-04-10] MEDS: Benzonatate 100 MG CAP PO SCH ×3 (08:44→20:01)
[2022-04-10] MEDS: cloNIDine 0.2 MG TAB PO SCH ×3 (08:44→21:00)
[2022-04-10] MEDS: Ciprofloxacin 500 MG TAB PO SCH (08:44)
[2022-04-10] MEDS: Spironolactone 100 MG TAB PO SCH (08:44)
[2022-04-10] MEDS: guaiFENesin ER 600 MG TAB PO SCH ×2 (08:44→20:00)
[2022-04-10] MEDS: NEOMYCIN-POLYMYXIN-HC EAR SUSP 200 DROP/10 ML BOT EA EAR SCH ×3 (08:45→20:04)
[2022-04-10] MEDS ORDERED: Polyethylene Glycol 3350 17 GM Packet PO PRN (09:00)
[2022-04-10] MEDS: Morphine 4 MG/ML VIAL SLOW IVP PRN ×2 (15:08→20:11)
[2022-04-10] MEDS: Montelukast Sodium 10 mg Tablet PO SCH (20:01)
[2022-04-10] MEDS: Melatonin 3 MG TAB PO PRN (20:01)
[2022-04-10] MEDS: Ketorolac Tromethamine 30 MG/ML VIAL IVP SCH (21:21)
[2022-04-11] MEDS: Morphine 4 MG/ML VIAL SLOW IVP PRN ×2 (05:05→20:27)
[2022-04-11 05:51] LABS: Hemoglobin 8.4 g/dL (14.0-18.0); Mean Corpuscular HGB CONC 31.4 g/dL (32.0-36.0); Mean Corpuscular Hemoglobin 26.8 pg (27.0-31.0); Mean Corpuscular Volume 85.2 fl (78.0-98.0); Mean Platelet Volume 7.3 fL (7.4-10.4); Platelet Count 403 10x3/uL (130-400); RBC Distribution Width 18.4 % (11.5-14.5); Red Blood Cell (RBC) Count 3.15 mill/uL (4.70-6.10); White Blood Cell (WBC) Count 13.1 10x3/uL (4.8-10.8)
[2022-04-11 06:06] LABS: Anion Gap 12 mmol/L (10-20); BUN (Urea Nitrogen) 14 mg/dL (8.4-25.7); Calc. Creatinine Clearance 159 mL/min (70-130); Calcium 7.9 mg/dL (7.8-10.44); Carbon Dioxide 23 mmol/L (22-29); Chloride 96 mmol/L (98-107); Estimated GFR 108; Glucose 83 mg/dL (70-105); Potassium 4.3 mmol/L (3.5-5.1); Sodium 127 mmol/L (136-145)
[2022-04-11 06:13] LABS: Band 13 % (5-11); Eosinophils 1 % (0-10); Lymphocytes 18 % (21-51); MDiff Complete? YES; Metamyelocyte 2 % (0-0); Monocytes 4 % (0-10); Myelocyte 19 % (0-0); Neutrophil 43 % (42-75)
[2022-04-11] MEDS ORDERED: Ipratropium/Albuterol 3 ML NEB ONE (07:13)
[2022-04-11] MEDS: Mometasone 200 MCG/Formoterol 5 MCG 120 PUFF INHALER INH SCH ×2 (07:16→18:20)
[2022-04-11] MEDS: Ipratropium/Albuterol 3 ML NEB NEB SCH ×5 (07:17→18:20)
[2022-04-11] MEDS: Apixaban 5 MG TAB PO SCH ×2 (08:51→20:24)
[2022-04-11] MEDS: Tamsulosin HCl 0.4 MG CAP PO SCH (08:51)
[2022-04-11] MEDS: Nystatin 500,000 UNITS/5 ML UDCUP SSW SCH ×4 (08:51→20:21)
[2022-04-11] MEDS: NEOMYCIN-POLYMYXIN-HC EAR SUSP 200 DROP/10 ML BOT EA EAR SCH ×3 (08:51→20:23)
[2022-04-11] MEDS: guaiFENesin ER 600 MG TAB PO SCH ×2 (08:51→20:24)
[2022-04-11] MEDS: Benzonatate 100 MG CAP PO SCH ×3 (08:52→20:25)
[2022-04-11] MEDS: Rifaximin 550 MG TAB PO SCH ×2 (08:52→20:24)
[2022-04-11] MEDS: Furosemide 40 MG TAB PO SCH (08:52)
[2022-04-11] MEDS: Spironolactone 100 MG TAB PO SCH (08:52)
[2022-04-11] MEDS: cloNIDine 0.2 MG TAB PO SCH ×2 (08:52→20:26)
[2022-04-11] MEDS: Ciprofloxacin 500 MG TAB PO SCH (08:52)
[2022-04-11 12:24] LABS: INR-International Normal Ratio 1.2
[2022-04-11] MEDS ORDERED: Sodium Bicarbonate 2.5 MEQ/5 ML VIAL ONE (14:19)
[2022-04-11] MEDS ORDERED: Lidocaine 1% PF 5 ML VIAL ONE (14:19)
[2022-04-11] MEDS: Melatonin 3 MG TAB PO PRN (20:25)
[2022-04-11] MEDS: Montelukast Sodium 10 mg Tablet PO SCH (20:25)
[2022-04-12] MEDS: Morphine 4 MG/ML VIAL SLOW IVP PRN ×3 (02:03→20:52)
[2022-04-12] MEDS ORDERED: Ipratropium Bromide 2.5 ml Neb ONE (06:50)
[2022-04-12] MEDS: Ipratropium/Albuterol 3 ML NEB NEB SCH ×4 (06:52→19:53)
[2022-04-12] MEDS: Mometasone 200 MCG/Formoterol 5 MCG 120 PUFF INHALER INH SCH ×2 (06:54→19:54)
[2022-04-12] MEDS: Apixaban 5 MG TAB PO SCH ×2 (09:02→20:50)
[2022-04-12] MEDS: Ciprofloxacin 500 MG TAB PO SCH (09:02)
[2022-04-12] MEDS: Benzonatate 100 MG CAP PO SCH ×3 (09:02→20:50)
[2022-04-12] MEDS: Nystatin 500,000 UNITS/5 ML UDCUP SSW SCH ×4 (09:02→20:51)
[2022-04-12] MEDS: cloNIDine 0.2 MG TAB PO SCH ×2 (09:03→20:50)
[2022-04-12] MEDS: Furosemide 40 MG TAB PO SCH (09:03)
[2022-04-12] MEDS: Spironolactone 100 MG TAB PO SCH (09:03)
[2022-04-12] MEDS: Tamsulosin HCl 0.4 MG CAP PO SCH (09:03)
[2022-04-12] MEDS: guaiFENesin ER 600 MG TAB PO SCH ×2 (09:03→20:51)
[2022-04-12] MEDS: NEOMYCIN-POLYMYXIN-HC EAR SUSP 200 DROP/10 ML BOT EA EAR SCH ×4 (09:04→20:51)
[2022-04-12] MEDS: Rifaximin 550 MG TAB PO SCH ×2 (12:40→20:50)
[2022-04-12] MEDS: Ondansetron ODT 4 MG TAB PO PRN (17:17)
[2022-04-12] MEDS: Melatonin 3 MG TAB PO PRN (20:50)
[2022-04-12] MEDS: Montelukast Sodium 10 mg Tablet PO SCH (20:51)
[2022-04-13] MEDS: Morphine 4 MG/ML VIAL SLOW IVP PRN ×2 (03:23→12:50)
[2022-04-13] MEDS: Ipratropium/Albuterol 3 ML NEB NEB SCH ×4 (06:58→19:07)
[2022-04-13] MEDS: Mometasone 200 MCG/Formoterol 5 MCG 120 PUFF INHALER INH SCH ×2 (07:00→19:09)
[2022-04-13] MEDS: Ciprofloxacin 500 MG TAB PO SCH (08:38)
[2022-04-13] MEDS: Tamsulosin HCl 0.4 MG CAP PO SCH (08:38)
[2022-04-13] MEDS: cloNIDine 0.2 MG TAB PO SCH ×2 (08:38→21:01)
[2022-04-13] MEDS: Benzonatate 100 MG CAP PO SCH ×2 (08:38→14:34)
[2022-04-13] MEDS: guaiFENesin ER 600 MG TAB PO SCH (08:38)
[2022-04-13] MEDS: Nystatin 500,000 UNITS/5 ML UDCUP SSW SCH ×3 (08:40→16:06)
[2022-04-13] MEDS: Apixaban 5 MG TAB PO SCH ×2 (08:40→21:01)
[2022-04-13] MEDS: Spironolactone 100 MG TAB PO SCH (08:40)
[2022-04-13] MEDS: Furosemide 40 MG TAB PO SCH (08:40)
[2022-04-13] MEDS: Rifaximin 550 MG TAB PO SCH ×2 (08:40→21:01)
[2022-04-13] MEDS: NEOMYCIN-POLYMYXIN-HC EAR SUSP 200 DROP/10 ML BOT EA EAR SCH ×3 (08:41→21:03)
[2022-04-13] MEDS ORDERED: Benzonatate 100 MG CAP PO PRN (17:30)
[2022-04-13] MEDS: Melatonin 3 MG TAB PO PRN (21:01)
[2022-04-13] MEDS: Montelukast Sodium 10 mg Tablet PO SCH (21:01)
[2022-04-13] MEDS ORDERED: tiZANidine HCl 4 MG TAB PO SCH (22:00)
[2022-04-13] MEDS: HYDROcodone/Acetaminophen 5/325 mg Tablet PO PRN (22:54)
[2022-04-14 06:06] LABS: #Eosinphils 0.2 thou/uL (0.0-0.7); #Lymphocytes 2.1 thou/uL (1.20-3.40); #Monocytes 1.4 thou/uL (0.11-0.59); #Neutrophils 7.5 thou/uL (1.40-6.50); %Basophils 0.4 % (0.0-1.0); %Eosinophils 1.4 % (0.0-10.0); %Lymphocytes 18.8 % (21.0-51.0); %Monocytes 12.4 % (0.0-10.0); Hemoglobin 7.6 g/dL (14.0-18.0); Mean Corpuscular HGB CONC 31.9 g/dL (32.0-36.0); Mean Corpuscular Hemoglobin 26.8 pg (27.0-31.0); Mean Corpuscular Volume 84.1 fl (78.0-98.0); Mean Platelet Volume 7.3 fL (7.4-10.4); Platelet Count 364 10x3/uL (130-400); RBC Distribution Width 18.3 % (11.5-14.5); Red Blood Cell (RBC) Count 2.82 mill/uL (4.70-6.10); White Blood Cell (WBC) Count 11.2 10x3/uL (4.8-10.8)
[2022-04-14 06:22] LABS: Anion Gap 9 mmol/L (10-20); BUN (Urea Nitrogen) 9 mg/dL (8.4-25.7); Calc. Creatinine Clearance 161 mL/min (70-130); Calcium 7.9 mg/dL (7.8-10.44); Carbon Dioxide 25 mmol/L (22-29); Chloride 94 mmol/L (98-107); Estimated GFR 109; Glucose 102 mg/dL (70-105); Potassium 3.9 mmol/L (3.5-5.1); Sodium 124 mmol/L (136-145)
[2022-04-14] MEDS: Ipratropium/Albuterol 3 ML NEB NEB SCH ×4 (07:02→18:57)
[2022-04-14] MEDS: Mometasone 200 MCG/Formoterol 5 MCG 120 PUFF INHALER INH SCH ×2 (07:04→18:59)
[2022-04-14] MEDS: HYDROcodone/Acetaminophen 5/325 mg Tablet PO PRN ×2 (08:16→20:27)
[2022-04-14] MEDS: Spironolactone 100 MG TAB PO SCH (08:17)
[2022-04-14] MEDS: Tamsulosin HCl 0.4 MG CAP PO SCH (08:18)
[2022-04-14] MEDS: Apixaban 5 MG TAB PO SCH ×2 (08:18→20:20)
[2022-04-14] MEDS: Ciprofloxacin 500 MG TAB PO SCH (08:18)
[2022-04-14] MEDS: Furosemide 40 MG TAB PO SCH (08:18)
[2022-04-14] MEDS: Nystatin Powder 15 GM BOT TOP PRN (08:19)
[2022-04-14] MEDS: cloNIDine 0.2 MG TAB PO SCH (08:19)
[2022-04-14] MEDS ORDERED: Rifaximin 550 MG TAB PO SCH (11:00)
[2022-04-14] MEDS: NEOMYCIN-POLYMYXIN-HC EAR SUSP 200 DROP/10 ML BOT EA EAR SCH ×3 (12:16→20:21)
[2022-04-14] MEDS: Methocarbamol 500 MG TAB PO PRN ×2 (15:14→20:22)
[2022-04-14] MEDS: Montelukast Sodium 10 mg Tablet PO SCH (20:20)
[2022-04-14] MEDS: Rifaximin 550 MG TAB PO SCH (20:21)
[2022-04-14] MEDS: Melatonin 3 MG TAB PO PRN (20:26)
[2022-04-15] MEDS: HYDROcodone/Acetaminophen 5/325 mg Tablet PO PRN ×3 (03:22→20:29)
[2022-04-15] MEDS: Methocarbamol 500 MG TAB PO PRN ×2 (03:23→21:12)
[2022-04-15] MEDS: Boudreaux's Butt Paste 60 GM TUBE TOP PRN ×2 (06:08→20:30)
[2022-04-15 06:33] LABS: INR-International Normal Ratio 1.5; Prothrombin Time 18.4 sec (12.0-14.7)
[2022-04-15 06:47] LABS: ALT (SGPT) 23 U/L (8-55); AST (SGOT) 25 U/L (5-34); Albumin 2.6 g/dL (3.5-5.0); Alkaline Phosphatase 295 U/L (40-110); Bilirubin, Direct 0.2 mg/dL (0.1-0.3); Bilirubin, Total 0.4 mg/dL (0.2-1.2); Protein, Total 6.2 g/dL (6.0-8.3)
[2022-04-15 07:05] LABS: Hemoglobin 8.8 g/dL (14.0-18.0); Mean Corpuscular HGB CONC 33.1 g/dL (32.0-36.0); Mean Corpuscular Hemoglobin 28.2 pg (27.0-31.0); Mean Corpuscular Volume 85.1 fl (78.0-98.0); Mean Platelet Volume 7.4 fL (7.4-10.4); Platelet Count 397 10x3/uL (130-400); RBC Distribution Width 18.4 % (11.5-14.5); Red Blood Cell (RBC) Count 3.13 mill/uL (4.70-6.10); White Blood Cell (WBC) Count 13.4 10x3/uL (4.8-10.8)
[2022-04-15 07:23] LABS: Anion Gap 13 mmol/L (10-20); BUN (Urea Nitrogen) 7 mg/dL (8.4-25.7); Calc. Creatinine Clearance 166 mL/min (70-130); Calcium 8.1 mg/dL (7.8-10.44); Carbon Dioxide 23 mmol/L (22-29); Chloride 94 mmol/L (98-107); Estimated GFR 110; Glucose 77 mg/dL (70-105); Potassium 4.7 mmol/L (3.5-5.1); Sodium 125 mmol/L (136-145)
[2022-04-15] MEDS: Ondansetron PF 4 MG/2 ML Vial IVP PRN (07:56)
[2022-04-15] MEDS: Mometasone 200 MCG/Formoterol 5 MCG 120 PUFF INHALER INH SCH ×2 (08:26→19:35)
[2022-04-15] MEDS: Ipratropium/Albuterol 3 ML NEB NEB SCH ×4 (08:27→19:34)
[2022-04-15 08:47] LABS: Band 8 % (5-11); Eosinophils 3 % (0-10); Lymphocytes 19 % (21-51); MDiff Complete? YES; Metamyelocyte 5 % (0-0); Monocytes 13 % (0-10); Myelocyte 8 % (0-0); Neutrophil 44 % (42-75); Platelet Morphology Comment Appears Adequate; Polychromasia SLIGHT = 2-3 cells (100X) (0-2/hpf)
[2022-04-15] MEDS: Spironolactone 100 MG TAB PO SCH (10:03)
[2022-04-15] MEDS: Furosemide 40 MG TAB PO SCH (10:03)
[2022-04-15] MEDS: Ciprofloxacin 500 MG TAB PO SCH (10:06)
[2022-04-15] MEDS: Apixaban 5 MG TAB PO SCH ×2 (10:06→20:28)
[2022-04-15] MEDS: Rifaximin 550 MG TAB PO SCH ×2 (10:07→20:28)
[2022-04-15] MEDS: Tamsulosin HCl 0.4 MG CAP PO SCH (10:07)
[2022-04-15] MEDS: Montelukast Sodium 10 mg Tablet PO SCH (20:28)
[2022-04-16] MEDS: Methocarbamol 500 MG TAB PO PRN ×2 (02:03→21:32)
[2022-04-16] MEDS: HYDROcodone/Acetaminophen 5/325 mg Tablet PO PRN ×3 (02:03→21:31)
[2022-04-16] MEDS: Mometasone 200 MCG/Formoterol 5 MCG 120 PUFF INHALER INH SCH ×2 (07:47→18:52)
[2022-04-16] MEDS: Ipratropium/Albuterol 3 ML NEB NEB SCH ×4 (07:47→18:51)
[2022-04-16] MEDS: Spironolactone 100 MG TAB PO SCH (08:49)
[2022-04-16] MEDS: Ciprofloxacin 500 MG TAB PO SCH (08:49)
[2022-04-16] MEDS: Apixaban 5 MG TAB PO SCH ×2 (08:49→21:30)
[2022-04-16] MEDS: Tamsulosin HCl 0.4 MG CAP PO SCH (08:49)
[2022-04-16] MEDS: Rifaximin 550 MG TAB PO SCH ×2 (08:50→21:30)
[2022-04-16] MEDS: Furosemide 40 MG TAB PO SCH (08:51)
[2022-04-16] MEDS: Metoprolol Tartrate 25 MG TAB PO SCH (18:05)
[2022-04-16] MEDS: Melatonin 3 MG TAB PO PRN (21:29)
[2022-04-16] MEDS: Montelukast Sodium 10 mg Tablet PO SCH (21:30)
[2022-04-17] MEDS: Metoprolol Tartrate 25 MG TAB PO SCH ×4 (02:01→20:17)
[2022-04-17] MEDS: HYDROcodone/Acetaminophen 5/325 mg Tablet PO PRN ×2 (02:01→20:19)
[2022-04-17 05:55] LABS: Hemoglobin 8.5 g/dL (14.0-18.0); Mean Corpuscular HGB CONC 30.1 g/dL (32.0-36.0); Mean Corpuscular Hemoglobin 26.6 pg (27.0-31.0); Mean Corpuscular Volume 88.4 fl (78.0-98.0); Mean Platelet Volume 7.7 fL (7.4-10.4); Platelet Count 398 10x3/uL (130-400); RBC Distribution Width 18.4 % (11.5-14.5); Red Blood Cell (RBC) Count 3.21 mill/uL (4.70-6.10); White Blood Cell (WBC) Count 12.5 10x3/uL (4.8-10.8)
[2022-04-17 06:29] LABS: ALT (SGPT) 21 U/L (8-55); AST (SGOT) 44 U/L (5-34); Albumin 2.5 g/dL (3.5-5.0); Alkaline Phosphatase 307 U/L (40-110); Anion Gap 13 mmol/L (10-20); BUN (Urea Nitrogen) 8 mg/dL (8.4-25.7); Bilirubin, Total 0.3 mg/dL (0.2-1.2); CRP (Inflammatory) 10.74 mg/dL (= or < 0.5); Calc. Creatinine Clearance 135 mL/min (70-130); Calcium 8.5 mg/dL (7.8-10.44); Carbon Dioxide 23 mmol/L (22-29); Chloride 97 mmol/L (98-107); Estimated GFR 103; Globulin 3.9 g/dL (2.4-3.5); Glucose 99 mg/dL (70-105); Potassium 4.9 mmol/L (3.5-5.1); Protein, Total 6.4 g/dL (6.0-8.3); Sodium 128 mmol/L (136-145)
[2022-04-17 06:54] LABS: Anisocytosis SLIGHT = 6-15 cells (100X) (0-5/hpf); Band 4 % (5-11); Eosinophils 1 % (0-10); Lymphocytes 24 % (21-51); MDiff Complete? YES; Metamyelocyte 1 % (0-0); Monocytes 6 % (0-10); Myelocyte 2 % (0-0); Neutrophil 62 % (42-75); Platelet Morphology Comment Appears Adequate; Polychromasia SLIGHT = 2-3 cells (100X) (0-2/hpf)
[2022-04-17] MEDS: Mometasone 200 MCG/Formoterol 5 MCG 120 PUFF INHALER INH SCH ×2 (08:35→18:47)
[2022-04-17] MEDS: Ipratropium/Albuterol 3 ML NEB NEB SCH ×4 (08:35→18:46)
[2022-04-17] MEDS: Spironolactone 100 MG TAB PO SCH (08:43)
[2022-04-17] MEDS: Ciprofloxacin 500 MG TAB PO SCH (08:43)
[2022-04-17] MEDS: Apixaban 5 MG TAB PO SCH ×2 (08:43→20:19)
[2022-04-17] MEDS: Rifaximin 550 MG TAB PO SCH ×2 (08:43→20:18)
[2022-04-17] MEDS: Tamsulosin HCl 0.4 MG CAP PO SCH (08:43)
[2022-04-17] MEDS: Furosemide 40 MG TAB PO SCH (08:43)
[2022-04-17] MEDS: Montelukast Sodium 10 mg Tablet PO SCH (20:18)
[2022-04-17] MEDS: Melatonin 3 MG TAB PO PRN (20:18)
[2022-04-18] MEDS: Methocarbamol 500 MG TAB PO PRN ×2 (00:22→06:39)
[2022-04-18] MEDS: Metoprolol Tartrate 25 MG TAB PO SCH ×5 (00:22→23:30)
[2022-04-18] MEDS: Mometasone 200 MCG/Formoterol 5 MCG 120 PUFF INHALER INH SCH ×2 (07:21→18:21)
[2022-04-18] MEDS: Ipratropium/Albuterol 3 ML NEB NEB SCH ×4 (07:22→18:20)
[2022-04-18] MEDS ORDERED: Furosemide 40 MG/4 ML VIAL SLOW IVP SCH (09:00)
[2022-04-18] MEDS: Tamsulosin HCl 0.4 MG CAP PO SCH (09:03)
[2022-04-18] MEDS: Rifaximin 550 MG TAB PO SCH ×2 (09:03→22:31)
[2022-04-18] MEDS: Apixaban 5 MG TAB PO SCH ×2 (09:03→22:30)
[2022-04-18] MEDS: Ciprofloxacin 500 MG TAB PO SCH (09:03)
[2022-04-18] MEDS: Spironolactone 100 MG TAB PO SCH (09:03)
[2022-04-18] MEDS: HYDROcodone/Acetaminophen 5/325 mg Tablet PO PRN ×3 (09:06→22:32)
[2022-04-18] MEDS ORDERED: Sodium Bicarbonate 2.5 MEQ/5 ML VIAL ONE (10:53)
[2022-04-18] MEDS ORDERED: Lidocaine 1% PF 5 ML VIAL ONE (10:53)
[2022-04-18] MEDS ORDERED: Albumin 25% 25 GM/100 ML BOT IVPB SCH (13:15)
[2022-04-18] MEDS: Melatonin 3 MG TAB PO PRN (22:31)
[2022-04-18] MEDS: Montelukast Sodium 10 mg Tablet PO SCH (22:32)
[2022-04-19] MEDS: HYDROcodone/Acetaminophen 5/325 mg Tablet PO PRN ×2 (03:49→21:02)
[2022-04-19 05:12] LABS: #Basophils 0.1 thou/uL (0.0-0.2); #Eosinphils 0.5 thou/uL (0.0-0.7); #Lymphocytes 2.5 thou/uL (1.20-3.40); #Monocytes 1.3 thou/uL (0.11-0.59); #Neutrophils 8.5 thou/uL (1.40-6.50); %Basophils 0.8 % (0.0-1.0); %Eosinophils 3.5 % (0.0-10.0); %Lymphocytes 19.8 % (21.0-51.0); %Monocytes 9.9 % (0.0-10.0); Hemoglobin 8.2 g/dL (14.0-18.0); Mean Corpuscular Hemoglobin 26.1 pg (27.0-31.0); Mean Corpuscular Volume 84.4 fl (78.0-98.0); Mean Platelet Volume 7.1 fL (7.4-10.4); Platelet Count 467 10x3/uL (130-400); RBC Distribution Width 18.3 % (11.5-14.5); Red Blood Cell (RBC) Count 3.15 mill/uL (4.70-6.10); White Blood Cell (WBC) Count 12.8 10x3/uL (4.8-10.8)
[2022-04-19 05:30] LABS: Albumin 2.5 g/dL (3.5-5.0); Anion Gap 11 mmol/L (10-20); BUN (Urea Nitrogen) 8 mg/dL (8.4-25.7); BUN/Creatinine Ratio 12.12; Calc. Creatinine Clearance 154 mL/min (70-130); Calcium 8.1 mg/dL (7.8-10.44); Carbon Dioxide 22 mmol/L (22-29); Chloride 98 mmol/L (98-107); Estimated GFR 107; Glucose 108 mg/dL (70-105); Phosphorus 3.3 mg/dL (2.3-4.7); Potassium 4.2 mmol/L (3.5-5.1); Sodium 127 mmol/L (136-145)
[2022-04-19] MEDS: Metoprolol Tartrate 25 MG TAB PO SCH ×3 (06:32→19:22)
[2022-04-19] MEDS: Methocarbamol 500 MG TAB PO PRN (06:52)
[2022-04-19] MEDS: Ipratropium/Albuterol 3 ML NEB NEB SCH ×4 (07:54→18:57)
[2022-04-19] MEDS: Mometasone 200 MCG/Formoterol 5 MCG 120 PUFF INHALER INH SCH ×2 (08:04→18:59)
[2022-04-19] MEDS: Tamsulosin HCl 0.4 MG CAP PO SCH (09:01)
[2022-04-19] MEDS: Ciprofloxacin 500 MG TAB PO SCH (09:01)
[2022-04-19] MEDS: Apixaban 5 MG TAB PO SCH ×2 (09:01→21:04)
[2022-04-19] MEDS: Rifaximin 550 MG TAB PO SCH ×2 (09:01→21:03)
[2022-04-19] MEDS: Spironolactone 100 MG TAB PO SCH (10:14)
[2022-04-19] MEDS: Ondansetron ODT 4 MG TAB PO PRN (16:58)
[2022-04-19] MEDS: Melatonin 3 MG TAB PO PRN (21:03)
[2022-04-19] MEDS: Montelukast Sodium 10 mg Tablet PO SCH (21:04)
[2022-04-19] MEDS: Boudreaux's Butt Paste 60 GM TUBE TOP PRN (21:06)
[2022-04-20] MEDS ORDERED: Mupirocin 2% Ointment 22 GM Tube TOP SCH (00:45)
[2022-04-20] MEDS ORDERED: Bacitracin 1 PK TOP SCH (01:00)
[2022-04-20] MEDS: Metoprolol Tartrate 25 MG TAB PO SCH ×4 (01:43→18:04)
[2022-04-20] MEDS: HYDROcodone/Acetaminophen 5/325 mg Tablet PO PRN ×3 (02:55→18:03)
[2022-04-20] MEDS: Methocarbamol 500 MG TAB PO PRN (04:59)
[2022-04-20] MEDS: Furosemide 40 MG TAB PO SCH (07:18)
[2022-04-20] MEDS: Ipratropium/Albuterol 3 ML NEB NEB SCH ×4 (07:53→18:46)
[2022-04-20] MEDS: Mometasone 200 MCG/Formoterol 5 MCG 120 PUFF INHALER INH SCH ×2 (07:58→18:48)
[2022-04-20] MEDS: Ciprofloxacin 500 MG TAB PO SCH (09:57)
[2022-04-20] MEDS: Spironolactone 100 MG TAB PO SCH (09:57)
[2022-04-20] MEDS: Rifaximin 550 MG TAB PO SCH ×2 (09:57→20:45)
[2022-04-20] MEDS: Apixaban 5 MG TAB PO SCH ×2 (09:57→20:45)
[2022-04-20] MEDS: Tamsulosin HCl 0.4 MG CAP PO SCH (09:57)
[2022-04-20] MEDS: Mupirocin 2% Ointment 22 GM Tube TOP SCH ×3 (09:59→20:45)
[2022-04-20] MEDS: Ondansetron ODT 4 MG TAB PO PRN (18:01)
[2022-04-20] MEDS: Montelukast Sodium 10 mg Tablet PO SCH (20:45)
[2022-04-20] MEDS: Melatonin 3 MG TAB PO PRN (20:45)
[2022-04-21] MEDS: HYDROcodone/Acetaminophen 5/325 mg Tablet PO PRN ×4 (00:24→21:39)
[2022-04-21] MEDS: Metoprolol Tartrate 25 MG TAB PO SCH ×4 (00:26→17:35)
[2022-04-21] MEDS: Ipratropium/Albuterol 3 ML NEB NEB SCH ×4 (07:53→19:04)
[2022-04-21] MEDS: Mometasone 200 MCG/Formoterol 5 MCG 120 PUFF INHALER INH SCH ×2 (07:55→19:04)
[2022-04-21] MEDS: Ciprofloxacin 500 MG TAB PO SCH (08:34)
[2022-04-21] MEDS: Tamsulosin HCl 0.4 MG CAP PO SCH (08:34)
[2022-04-21] MEDS: Spironolactone 100 MG TAB PO SCH (08:34)
[2022-04-21] MEDS: Rifaximin 550 MG TAB PO SCH ×2 (08:34→20:29)
[2022-04-21] MEDS: Furosemide 40 MG TAB PO SCH (08:34)
[2022-04-21] MEDS: Apixaban 5 MG TAB PO SCH ×2 (08:34→20:29)
[2022-04-21] MEDS: Mupirocin 2% Ointment 22 GM Tube TOP SCH ×3 (08:35→20:29)
[2022-04-21] MEDS: Melatonin 3 MG TAB PO PRN (20:29)
[2022-04-21] MEDS: Montelukast Sodium 10 mg Tablet PO SCH (20:29)
[2022-04-22] MEDS: Metoprolol Tartrate 25 MG TAB PO SCH ×5 (00:18→17:55)
[2022-04-22] MEDS ORDERED: Ipratropium/Albuterol 3 ML NEB ONE (01:01)
[2022-04-22] MEDS: Ipratropium/Albuterol 3 ML NEB NEB SCH ×4 (08:37→19:46)
[2022-04-22] MEDS: Mometasone 200 MCG/Formoterol 5 MCG 120 PUFF INHALER INH SCH ×2 (08:38→19:47)
[2022-04-22] MEDS: Tamsulosin HCl 0.4 MG CAP PO SCH (08:48)
[2022-04-22] MEDS: Apixaban 5 MG TAB PO SCH ×2 (08:48→20:05)
[2022-04-22] MEDS: Rifaximin 550 MG TAB PO SCH ×2 (08:48→20:05)
[2022-04-22] MEDS: Furosemide 40 MG TAB PO SCH (08:49)
[2022-04-22] MEDS: Mupirocin 2% Ointment 22 GM Tube TOP SCH ×3 (08:49→20:06)
[2022-04-22] MEDS: Ciprofloxacin 500 MG TAB PO SCH (08:49)
[2022-04-22] MEDS: Spironolactone 100 MG TAB PO SCH (08:49)
[2022-04-22] MEDS: HYDROcodone/Acetaminophen 5/325 mg Tablet PO PRN ×3 (08:52→20:05)
[2022-04-22] MEDS: Montelukast Sodium 10 mg Tablet PO SCH (20:04)
[2022-04-22] MEDS: Melatonin 3 MG TAB PO PRN (20:04)
[2022-04-22] MEDS: Methocarbamol 500 MG TAB PO PRN (20:04)
[2022-04-23] MEDS: Metoprolol Tartrate 25 MG TAB PO SCH ×5 (00:01→23:45)
[2022-04-23] MEDS: Ipratropium/Albuterol 3 ML NEB NEB SCH ×5 (00:13→23:35)
[2022-04-23] MEDS: Mometasone 200 MCG/Formoterol 5 MCG 120 PUFF INHALER INH SCH ×2 (08:21→19:09)
[2022-04-23] MEDS: Furosemide 40 MG TAB PO SCH (09:52)
[2022-04-23] MEDS: Ciprofloxacin 500 MG TAB PO SCH (09:52)
[2022-04-23] MEDS: Apixaban 5 MG TAB PO SCH ×2 (09:52→20:27)
[2022-04-23] MEDS: Tamsulosin HCl 0.4 MG CAP PO SCH (09:52)
[2022-04-23] MEDS: Rifaximin 550 MG TAB PO SCH ×2 (09:52→20:26)
[2022-04-23] MEDS: Spironolactone 100 MG TAB PO SCH (09:52)
[2022-04-23] MEDS: HYDROcodone/Acetaminophen 5/325 mg Tablet PO PRN ×3 (10:00→20:26)
[2022-04-23] MEDS: Mupirocin 2% Ointment 22 GM Tube TOP SCH ×3 (10:04→20:25)
[2022-04-23] MEDS: Melatonin 3 MG TAB PO PRN (20:27)
[2022-04-23] MEDS: Montelukast Sodium 10 mg Tablet PO SCH (20:28)
[2022-04-23] MEDS: Methocarbamol 500 MG TAB PO PRN (21:02)
[2022-04-24] MEDS: Boudreaux's Butt Paste 60 GM TUBE TOP PRN (05:53)
[2022-04-24] MEDS: Metoprolol Tartrate 25 MG TAB PO SCH ×3 (05:55→18:34)
[2022-04-24] MEDS: HYDROcodone/Acetaminophen 5/325 mg Tablet PO PRN ×3 (06:06→21:03)
[2022-04-24] MEDS: Ipratropium/Albuterol 3 ML NEB NEB SCH ×4 (07:45→23:20)
[2022-04-24] MEDS: Mometasone 200 MCG/Formoterol 5 MCG 120 PUFF INHALER INH SCH ×2 (07:45→19:21)
[2022-04-24] MEDS: Furosemide 40 MG TAB PO SCH (08:02)
[2022-04-24] MEDS: Tamsulosin HCl 0.4 MG CAP PO SCH (08:02)
[2022-04-24] MEDS: Ciprofloxacin 500 MG TAB PO SCH (08:02)
[2022-04-24] MEDS: Apixaban 5 MG TAB PO SCH ×2 (08:02→21:02)
[2022-04-24] MEDS: Rifaximin 550 MG TAB PO SCH ×2 (08:02→21:02)
[2022-04-24] MEDS: Spironolactone 100 MG TAB PO SCH (08:03)
[2022-04-24] MEDS: Mupirocin 2% Ointment 22 GM Tube TOP SCH ×3 (08:04→21:07)
[2022-04-24] MEDS: Melatonin 3 MG TAB PO PRN (21:02)
[2022-04-24] MEDS: Methocarbamol 500 MG TAB PO PRN (21:02)
[2022-04-24] MEDS: Montelukast Sodium 10 mg Tablet PO SCH (21:02)
[2022-04-25] MEDS: Metoprolol Tartrate 25 MG TAB PO SCH ×4 (01:50→18:11)
[2022-04-25 05:51] LABS: #Basophils 0.1 thou/uL (0.0-0.2); #Eosinphils 0.1 thou/uL (0.0-0.7); #Lymphocytes 2.6 thou/uL (1.20-3.40); #Monocytes 1.2 thou/uL (0.11-0.59); #Neutrophils 8.9 thou/uL (1.40-6.50); %Basophils 0.8 % (0.0-1.0); %Eosinophils 1.1 % (0.0-10.0); %Lymphocytes 20.1 % (21.0-51.0); %Monocytes 9.2 % (0.0-10.0); %Neutrophils 68.8 % (42.0-75.0); Hemoglobin 8.7 g/dL (14.0-18.0); Mean Corpuscular HGB CONC 31.6 g/dL (32.0-36.0); Mean Corpuscular Hemoglobin 26.3 pg (27.0-31.0); Mean Corpuscular Volume 83.2 fl (78.0-98.0); Mean Platelet Volume 6.9 fL (7.4-10.4); Platelet Count 535 10x3/uL (130-400); RBC Distribution Width 17.5 % (11.5-14.5); White Blood Cell (WBC) Count 12.9 10x3/uL (4.8-10.8)
[2022-04-25 06:15] LABS: Anion Gap 14 mmol/L (10-20); BUN (Urea Nitrogen) 8 mg/dL (8.4-25.7); Calc. Creatinine Clearance 132 mL/min (70-130); Calcium 8.6 mg/dL (7.8-10.44); Carbon Dioxide 21 mmol/L (22-29); Chloride 96 mmol/L (98-107); Estimated GFR 102; Glucose 96 mg/dL (70-105); Potassium 4.1 mmol/L (3.5-5.1); Sodium 127 mmol/L (136-145)
[2022-04-25] MEDS: Ipratropium/Albuterol 3 ML NEB NEB SCH ×3 (08:02→19:01)
[2022-04-25] MEDS: Mometasone 200 MCG/Formoterol 5 MCG 120 PUFF INHALER INH SCH ×2 (08:02→19:03)
[2022-04-25] MEDS: Apixaban 5 MG TAB PO SCH ×2 (09:23→21:37)
[2022-04-25] MEDS: Spironolactone 100 MG TAB PO SCH (09:23)
[2022-04-25] MEDS: Tamsulosin HCl 0.4 MG CAP PO SCH (09:23)
[2022-04-25] MEDS: Furosemide 40 MG TAB PO SCH (09:24)
[2022-04-25] MEDS: Mupirocin 2% Ointment 22 GM Tube TOP SCH ×3 (09:24→21:38)
[2022-04-25] MEDS: HYDROcodone/Acetaminophen 5/325 mg Tablet PO PRN ×2 (12:59→21:39)
[2022-04-25] MEDS: Melatonin 3 MG TAB PO PRN (21:37)
[2022-04-25] MEDS: Montelukast Sodium 10 mg Tablet PO SCH (21:37)
[2022-04-25] MEDS: Rifaximin 550 MG TAB PO SCH (21:37)
[2022-04-26] MEDS: Boudreaux's Butt Paste 60 GM TUBE TOP PRN (00:17)
[2022-04-26] MEDS: Metoprolol Tartrate 25 MG TAB PO SCH ×3 (00:17→20:21)
[2022-04-26] MEDS: Ipratropium/Albuterol 3 ML NEB NEB SCH ×4 (00:45→19:11)
[2022-04-26] MEDS: Mometasone 200 MCG/Formoterol 5 MCG 120 PUFF INHALER INH SCH ×2 (07:36→19:11)
[2022-04-26] MEDS: Furosemide 40 MG TAB PO SCH (09:44)
[2022-04-26] MEDS: Apixaban 5 MG TAB PO SCH ×2 (09:44→20:31)
[2022-04-26] MEDS: Ciprofloxacin 500 MG TAB PO SCH (09:44)
[2022-04-26] MEDS: Spironolactone 100 MG TAB PO SCH (09:44)
[2022-04-26] MEDS: Rifaximin 550 MG TAB PO SCH ×2 (09:46→20:31)
[2022-04-26] MEDS: Tamsulosin HCl 0.4 MG CAP PO SCH (09:46)
[2022-04-26] MEDS: Mupirocin 2% Ointment 22 GM Tube TOP SCH ×3 (09:46→20:32)
[2022-04-26] MEDS: HYDROcodone/Acetaminophen 5/325 mg Tablet PO PRN ×2 (09:58→20:30)
[2022-04-26] MEDS: Montelukast Sodium 10 mg Tablet PO SCH (20:31)
[2022-04-26] MEDS: Melatonin 3 MG TAB PO PRN (20:31)
[2022-04-27] MEDS: Metoprolol Tartrate 25 MG TAB PO SCH ×3 (00:03→11:39)
[2022-04-27] MEDS: Ipratropium/Albuterol 3 ML NEB NEB SCH ×3 (00:51→12:56)
[2022-04-27] MEDS: Mometasone 200 MCG/Formoterol 5 MCG 120 PUFF INHALER INH SCH (07:07)
[2022-04-27] MEDS: Spironolactone 100 MG TAB PO SCH (08:41)
[2022-04-27] MEDS: Furosemide 40 MG TAB PO SCH (08:41)
[2022-04-27] MEDS: Apixaban 5 MG TAB PO SCH (08:41)
[2022-04-27] MEDS: Rifaximin 550 MG TAB PO SCH (08:42)
[2022-04-27] MEDS: Tamsulosin HCl 0.4 MG CAP PO SCH (08:42)
[2022-04-27] MEDS: HYDROcodone/Acetaminophen 5/325 mg Tablet PO PRN (08:43)
[2022-04-27 09:16] VITALS: BP 101/68; TEMP 97.1
[2022-04-27] MEDS: Ciprofloxacin 500 MG TAB PO SCH (09:52)
[2022-04-27] MEDS: Mupirocin 2% Ointment 22 GM Tube TOP SCH (11:42)
== END 2022-04-27 14:42 | disposition home or self-care (01) | DRG 432 ==
LOC: ERS 15:17 → NEURO 18:41 → OBSVTOIN 03-15 12:04 → MSONC 03-20 14:52
PROVIDERS: ADMIT Internal Medicine; ATTEND Internal Medicine
PROC: 0W9G3ZZ Drainage of Peritoneal Cavity, Percutaneous Approach (ICD-10-PCS; principal; 2022-03-25)
PROC: 0D9670Z Drainage of Stomach with Drainage Device, Via Natural or Artificial Opening (ICD-10-PCS; 2022-03-25)
PROC: 30233N1 Transfusion of Nonautologous Red Blood Cells into Peripheral Vein, Percutaneous Approach (ICD-10-PCS; 2022-03-27)
PROC: 0W9G3ZZ Drainage of Peritoneal Cavity, Percutaneous Approach (ICD-10-PCS; 2022-04-01)
PROC: 0W9G3ZZ Drainage of Peritoneal Cavity, Percutaneous Approach (ICD-10-PCS; 2022-04-11)
PROC: 0W9G3ZZ Drainage of Peritoneal Cavity, Percutaneous Approach (ICD-10-PCS; 2022-04-18)
DX: K70.31 Alcoholic cirrhosis of liver with ascites (principal); J96.21 Acute and chronic respiratory failure with hypoxia; K65.2 Spontaneous bacterial peritonitis; E87.1 Hypo-osmolality and hyponatremia; I50.32 Chronic diastolic (congestive) heart failure; K56.7 Ileus, unspecified; N17.9 Acute kidney failure, unspecified; J98.11 Atelectasis; Z20.822 Contact with and (suspected) exposure to COVID-19; J43.9 Emphysema, unspecified; E88.01 Alpha-1-antitrypsin deficiency; K21.9 Gastro-esophageal reflux disease without esophagitis; D63.8 Anemia in other chronic diseases classified elsewhere; I11.0 Hypertensive heart disease with heart failure; E66.9 Obesity, unspecified; F10.10 Alcohol abuse, uncomplicated; G89.29 Other chronic pain; R33.9 Retention of urine, unspecified; H60.501 Unspecified acute noninfective otitis externa, right ear; E11.65 Type 2 diabetes mellitus with hyperglycemia; T38.0X5A Adverse effect of glucocorticoids and synthetic analogues, initial encounter; K59.00 Constipation, unspecified; B96.5 Pseudomonas (aeruginosa) (mallei) (pseudomallei) as the cause of diseases classified elsewhere; E87.5 Hyperkalemia; R45.1 Restlessness and agitation; Z88.1 Allergy status to other antibiotic agents; Z88.8 Allergy status to other drugs, medicaments and biological substances; Z86.718 Personal history of other venous thrombosis and embolism; Z86.711 Personal history of pulmonary embolism; Z79.899 Other long term (current) drug therapy; Z79.01 Long term (current) use of anticoagulants; Z98.890 Other specified postprocedural states; Z87.891 Personal history of nicotine dependence; Z91.199 Patient's noncompliance with other medical treatment and regimen due to unspecified reason; Z68.27 Body mass index [BMI] 27.0-27.9, adult
CPT/HCPCS: 36415; 36416; 36430; 49083; 71045; 71046; 74018; 74019; 74178; 76705; 80048; 80053; 80069; 80076; 82042; 82140; 83605; 83735; 83880; 84100; 84157; 84484; 85025; 85027; 85060; 85610; 85730; 86140; 86850; 86900; 86901; 87070; 87077; 87186; 87205; 87811; 89051; 93005; 93010; 93306; 94640; 96374; 97139; C9113; G0378; J0744; J1650; J1815; J1885; J1940; J2001; J2185; J2270; J2354; J2405; J2543; J2550; J2920; J3475; J3490; J7050; J7060; J7512; J7611; J7620; P9016; P9047; Q0162; U0003; U0005

== ENCOUNTER 2022-05-06 07:48 | Inpatient (IN) | payer OTHER ==
[2022-05-06] MEDS ORDERED: Ipratropium Bromide 2.5 ml Neb ONE (08:28)
[2022-05-06] MEDS ORDERED: methylPREDNISolone Sod Succ/PF 125 MG/2 ML VIAL ONE (08:30)
[2022-05-06] MEDS ORDERED: Hydrocortisone Sod Succ/PF 100 mg/2 ml Vial ONE (08:30)
[2022-05-06] MEDS ORDERED: VANCOMYCIN 2 GRAM/500 ML BAG 2 GM in Premix Bag 1 BAG IVPB SCH (08:45)
[2022-05-06 08:58] LABS: #Basophils 0.1 thou/uL (0.0-0.2); #Eosinphils 0.3 thou/uL (0.0-0.7); #Lymphocytes 3.6 thou/uL (1.20-3.40); #Monocytes 1.4 thou/uL (0.11-0.59); #Neutrophils 7.3 thou/uL (1.40-6.50); %Eosinophils 2.5 % (0.0-10.0); %Lymphocytes 28.4 % (21.0-51.0); %Monocytes 10.7 % (0.0-10.0); %Neutrophils 57.4 % (42.0-75.0); Hemoglobin 8.4 g/dL (14.0-18.0); Mean Corpuscular HGB CONC 30.9 g/dL (32.0-36.0); Mean Corpuscular Hemoglobin 25.6 pg (27.0-31.0); Mean Corpuscular Volume 82.9 fl (78.0-98.0); Mean Platelet Volume 6.8 fL (7.4-10.4); Platelet Count 553 10x3/uL (130-400); RBC Distribution Width 16.9 % (11.5-14.5); Red Blood Cell (RBC) Count 3.27 mill/uL (4.70-6.10); White Blood Cell (WBC) Count 12.8 10x3/uL (4.8-10.8)
[2022-05-06] MEDS ORDERED: Piperacillin/Tazobactam 4.5 GM VIAL ONE (09:11)
[2022-05-06 09:33] LABS: ALT (SGPT) 12 U/L (8-55); AST (SGOT) 21 U/L (5-34); Albumin 2.7 g/dL (3.5-5.0); Alkaline Phosphatase 162 U/L (40-110); Anion Gap 17 mmol/L (10-20); BUN (Urea Nitrogen) 27 mg/dL (8.4-25.7); Bilirubin, Total 0.4 mg/dL (0.2-1.2); Calc. Creatinine Clearance 0 mL/min (70-130); Calcium 8.1 mg/dL (7.8-10.44); Carbon Dioxide 19 mmol/L (22-29); Chloride 98 mmol/L (98-107); Estimated GFR 34; Globulin 3.7 g/dL (2.4-3.5); Glucose 91 mg/dL (70-105); Potassium 4.1 mmol/L (3.5-5.1); Protein, Total 6.4 g/dL (6.0-8.3); Sodium 130 mmol/L (136-145)
[2022-05-06] MEDS ORDERED: Fentanyl 100 MCG/2 ML VIAL ONE (12:06)
[2022-05-06 12:10] LABS: Lactic Acid 2.8 mmol/L (0.5-2.2)
[2022-05-06 12:50] LABS: SARS-CoV-2 NAA Rapid Test Not Detected (NotDetected)
[2022-05-06] MEDS ORDERED: Senokot S 8.6-50 MG TAB PO PRN (13:12)
[2022-05-06] MEDS ORDERED: Polyethylene Glycol 3350 17 GM Packet PO PRN (13:56)
[2022-05-06] MEDS ORDERED: Acetaminophen 500 MG TAB ONE ×3 (14:30→14:41)
[2022-05-06] MEDS: Acetaminophen 500 MG TAB PO SCH ×3 (14:37→20:25)
[2022-05-06] MEDS: Ipratropium Bromide 2.5 ml Neb NEB PRN (17:25)
[2022-05-06] MEDS: Albumin 25% 25 GM/100 ML BOT IVPB SCH ×2 (18:16→23:04)
[2022-05-06] MEDS: Mometasone 200 MCG/Formoterol 5 MCG 120 PUFF INHALER INH SCH (19:29)
[2022-05-06 20:19] VITALS: BMI 25.3
[2022-05-06] MEDS: Apixaban 5 MG TAB PO SCH (20:25)
[2022-05-06] MEDS ORDERED: tiZANidine HCl 4 MG TAB PO SCH (20:45)
[2022-05-06] MEDS ORDERED: traMADol HCl 50 MG TAB PO PRN (20:45)
[2022-05-06] MEDS ORDERED: Vancomycin 1 GM in Premix Bag 1 BAG IVPB SCH (21:00)
[2022-05-06] MEDS: Melatonin 3 MG TAB PO PRN (21:19)
[2022-05-06] MEDS: traMADol HCl 50 MG TAB PO PRN (21:20)
[2022-05-07 04:57] LABS: #Lymphocytes 0.6 thou/uL (1.20-3.40); #Monocytes 0.2 thou/uL (0.11-0.59); #Neutrophils 5.6 thou/uL (1.40-6.50); %Basophils 0.3 % (0.0-1.0); %Eosinophils 0.2 % (0.0-10.0); %Lymphocytes 9.5 % (21.0-51.0); %Monocytes 3.4 % (0.0-10.0); %Neutrophils 86.6 % (42.0-75.0); Hemoglobin 7.1 g/dL (14.0-18.0); Mean Corpuscular HGB CONC 31.7 g/dL (32.0-36.0); Mean Corpuscular Hemoglobin 25.6 pg (27.0-31.0); Mean Corpuscular Volume 80.6 fl (78.0-98.0); Platelet Count 418 10x3/uL (130-400); RBC Distribution Width 16.7 % (11.5-14.5); Red Blood Cell (RBC) Count 2.77 mill/uL (4.70-6.10); White Blood Cell (WBC) Count 6.5 10x3/uL (4.8-10.8)
[2022-05-07 05:14] LABS: Anion Gap 16 mmol/L (10-20); BUN (Urea Nitrogen) 28 mg/dL (8.4-25.7); Calc. Creatinine Clearance 68 mL/min (70-130); Calcium 8.3 mg/dL (7.8-10.44); Carbon Dioxide 18 mmol/L (22-29); Chloride 104 mmol/L (98-107); Estimated GFR 57; Glucose 134 mg/dL (70-105); Potassium 3.6 mmol/L (3.5-5.1); Sodium 134 mmol/L (136-145)
[2022-05-07] MEDS: Albumin 25% 25 GM/100 ML BOT IVPB SCH ×2 (05:44→17:00)
[2022-05-07] MEDS: Mometasone 200 MCG/Formoterol 5 MCG 120 PUFF INHALER INH SCH ×2 (06:57→18:47)
[2022-05-07] MEDS: Ipratropium Bromide 2.5 ml Neb NEB PRN ×2 (08:05→18:50)
[2022-05-07] MEDS ORDERED: Famotidine 20 MG TAB PO SCH (09:00)
[2022-05-07] MEDS: traMADol HCl 50 MG TAB PO PRN ×2 (09:54→20:31)
[2022-05-07] MEDS: Azithromycin 250 MG TAB PO SCH (09:55)
[2022-05-07] MEDS: Apixaban 5 MG TAB PO SCH ×2 (09:56→20:25)
[2022-05-07] MEDS: Polyethylene Glycol 3350 17 GM Packet PO SCH (09:56)
[2022-05-07] MEDS: Acetaminophen 500 MG TAB PO SCH ×3 (09:56→20:24)
[2022-05-07] MEDS: Tamsulosin HCl 0.4 MG CAP PO SCH (09:56)
[2022-05-07] MEDS: VANCOMYCIN 1.75 GM/500 ML BAG 1.75 GM in Premix Bag 1 BAG IVPB SCH (10:42)
[2022-05-07] MEDS: Famotidine 20 MG TAB PO SCH (20:25)
[2022-05-07] MEDS: Melatonin 3 MG TAB PO PRN (20:31)
[2022-05-08] MEDS: Albumin 25% 25 GM/100 ML BOT IVPB SCH ×3 (00:54→14:07)
[2022-05-08] MEDS: traMADol HCl 50 MG TAB PO PRN ×3 (03:25→21:59)
[2022-05-08 05:31] LABS: #Lymphocytes 1.3 thou/uL (1.20-3.40); #Monocytes 0.7 thou/uL (0.11-0.59); #Neutrophils 5.4 thou/uL (1.40-6.50); %Basophils 0.1 % (0.0-1.0); %Eosinophils 0.5 % (0.0-10.0); %Lymphocytes 17.2 % (21.0-51.0); %Monocytes 9.7 % (0.0-10.0); %Neutrophils 72.5 % (42.0-75.0); Hemoglobin 6.9 g/dL (14.0-18.0); Mean Corpuscular Hemoglobin 25.4 pg (27.0-31.0); Mean Corpuscular Volume 81.8 fl (78.0-98.0); Mean Platelet Volume 6.7 fL (7.4-10.4); Platelet Count 426 10x3/uL (130-400); RBC Distribution Width 16.5 % (11.5-14.5); Red Blood Cell (RBC) Count 2.72 mill/uL (4.70-6.10); White Blood Cell (WBC) Count 7.4 10x3/uL (4.8-10.8)
[2022-05-08 05:47] LABS: Anion Gap 11 mmol/L (10-20); BUN (Urea Nitrogen) 20 mg/dL (8.4-25.7); Calc. Creatinine Clearance 118 mL/min (70-130); Calcium 8.5 mg/dL (7.8-10.44); Carbon Dioxide 22 mmol/L (22-29); Chloride 106 mmol/L (98-107); Estimated GFR 101; Glucose 95 mg/dL (70-105); Potassium 3.3 mmol/L (3.5-5.1); Sodium 136 mmol/L (136-145)
[2022-05-08] MEDS: Mometasone 200 MCG/Formoterol 5 MCG 120 PUFF INHALER INH SCH ×2 (07:16→19:01)
[2022-05-08] MEDS: Ipratropium Bromide 2.5 ml Neb NEB PRN ×2 (07:20→18:58)
[2022-05-08] MEDS ORDERED: predniSONE 50 MG TAB PO SCH (08:00)
[2022-05-08] MEDS ORDERED: Electrolyte Replacement Protocol 1 EACH FS SCH (08:30)
[2022-05-08] MEDS ORDERED: Potassium Chloride 20 MEQ TAB PO SCH (08:45)
[2022-05-08 09:05] LABS: Magnesium 1.8 mg/dL (1.6-2.6)
[2022-05-08] MEDS: Apixaban 5 MG TAB PO SCH (10:07)
[2022-05-08] MEDS: Azithromycin 250 MG TAB PO SCH (10:07)
[2022-05-08] MEDS: Tamsulosin HCl 0.4 MG CAP PO SCH (10:07)
[2022-05-08] MEDS: Acetaminophen 500 MG TAB PO SCH ×2 (10:07→14:06)
[2022-05-08] MEDS: Famotidine 20 MG TAB PO SCH (10:07)
[2022-05-08] MEDS: Polyethylene Glycol 3350 17 GM Packet PO SCH (10:09)
[2022-05-08] MEDS ORDERED: Magnesium 2 GM/50 ML(in water) 2 GM in Premix Bag 1 BAG IVPB SCH (10:15)
[2022-05-08 10:47] LABS: Vancomycin, Trough 15.3 ug/mL
[2022-05-08] MEDS: VANCOMYCIN 1.75 GM/500 ML BAG 1.75 GM in Premix Bag 1 BAG IVPB SCH (11:10)
[2022-05-08 21:53] LABS: Hemoglobin 8.2 g/dL (14.0-18.0); Platelet Count 393 10x3/uL (130-400)
[2022-05-08] MEDS: Melatonin 3 MG TAB PO PRN (21:58)
[2022-05-09] MEDS: Ipratropium Bromide 2.5 ml Neb NEB PRN (02:26)
[2022-05-09] MEDS: Mometasone 200 MCG/Formoterol 5 MCG 120 PUFF INHALER INH SCH ×2 (07:40→18:48)
[2022-05-09] MEDS: predniSONE 20 MG TAB PO SCH (08:34)
[2022-05-09] MEDS: Tamsulosin HCl 0.4 MG CAP PO SCH (08:34)
[2022-05-09] MEDS: traMADol HCl 50 MG TAB PO PRN ×2 (08:35→21:05)
[2022-05-09] MEDS: Polyethylene Glycol 3350 17 GM Packet PO SCH (08:41)
[2022-05-09] MEDS ORDERED: Sodium Bicarbonate 2.5 MEQ/5 ML VIAL ONE (11:50)
[2022-05-09] MEDS ORDERED: Lidocaine 1% PF 5 ML VIAL ONE (11:50)
[2022-05-09 13:25] LABS: RBC Count-Automated (BF) 9222 /cu.mm; WBC/Nucleated-Auto (BF) 626 /cu.mm
[2022-05-09 13:55] LABS: BF Color Yellow; Body Fluid Source Ascites Body Fluid; Clarity Hazy (Clear); Tube # EDTA
[2022-05-09 14:13] LABS: BF Segmented Neutrophils 4 %; Cell Count Non Hematic 32 %; Lymphocytes 63 %
[2022-05-09] MEDS ORDERED: HYDROcodone/Acetaminophen 5/325 mg Tablet PO SCH (15:15)
[2022-05-09] MEDS ORDERED: Albumin 25% 25 GM/100 ML BOT IVPB SCH (15:15)
[2022-05-09] MEDS ORDERED: Ipratropium/Albuterol 3 ML NEB NEB PRN (15:19)
[2022-05-09] MEDS ORDERED: Albuterol 200 PUFF (6.7GM INHALER) INH PRN (15:22)
[2022-05-09] MEDS: Lidocaine 5% Patch TD SCH (16:43)
[2022-05-09] MEDS: Ipratropium/Albuterol 3 ML NEB NEB SCH ×2 (18:47→22:37)
[2022-05-09] MEDS: Melatonin 3 MG TAB PO PRN (21:05)
[2022-05-10] MEDS: Ipratropium/Albuterol 3 ML NEB NEB SCH ×6 (02:17→22:29)
[2022-05-10] MEDS ORDERED: Electrolyte Replacement Protocol 1 EACH FS SCH (04:00)
[2022-05-10 04:27] LABS: #Lymphocytes 1.6 thou/uL (1.20-3.40); #Monocytes 0.9 thou/uL (0.11-0.59); #Neutrophils 7.3 thou/uL (1.40-6.50); %Basophils 0.2 % (0.0-1.0); %Eosinophils 0.5 % (0.0-10.0); %Monocytes 8.9 % (0.0-10.0); %Neutrophils 74.4 % (42.0-75.0); Hemoglobin 8.2 g/dL (14.0-18.0); Mean Corpuscular HGB CONC 31.1 g/dL (32.0-36.0); Mean Corpuscular Hemoglobin 25.6 pg (27.0-31.0); Mean Corpuscular Volume 82.4 fl (78.0-98.0); Mean Platelet Volume 6.7 fL (7.4-10.4); Platelet Count 377 10x3/uL (130-400); RBC Distribution Width 16.1 % (11.5-14.5); White Blood Cell (WBC) Count 9.8 10x3/uL (4.8-10.8)
[2022-05-10 04:44] LABS: Anion Gap 10 mmol/L (10-20); BUN (Urea Nitrogen) 15 mg/dL (8.4-25.7); Calc. Creatinine Clearance 161 mL/min (70-130); Calcium 8.4 mg/dL (7.8-10.44); Carbon Dioxide 25 mmol/L (22-29); Chloride 101 mmol/L (98-107); Estimated GFR 111; Glucose 98 mg/dL (70-105); Magnesium 1.4 mg/dL (1.6-2.6); Potassium 3.6 mmol/L (3.5-5.1); Sodium 132 mmol/L (136-145)
[2022-05-10] MEDS: Transdermal Patch Removal TOP SCH (05:09)
[2022-05-10] MEDS ORDERED: Magnesium Sulfate In Water 4 GM in Premix Bag 1 BAG IVPB SCH (08:00)
[2022-05-10] MEDS: predniSONE 20 MG TAB PO SCH (08:31)
[2022-05-10] MEDS: traMADol HCl 50 MG TAB PO PRN ×3 (08:33→20:13)
[2022-05-10] MEDS: Tamsulosin HCl 0.4 MG CAP PO SCH (08:33)
[2022-05-10] MEDS ORDERED: Spironolactone 25 MG TAB PO SCH (09:15)
[2022-05-10] MEDS ORDERED: Furosemide 20 MG TAB PO SCH (09:15)
[2022-05-10] MEDS ORDERED: Metoprolol Tartrate 25 MG TAB PO SCH (09:15)
[2022-05-10] MEDS ORDERED: Furosemide 40 MG TAB PO SCH (09:30)
[2022-05-10] MEDS: Apixaban 5 MG TAB PO SCH ×2 (10:05→20:10)
[2022-05-10] MEDS: Mometasone 200 MCG/Formoterol 5 MCG 120 PUFF INHALER INH SCH ×2 (10:50→18:25)
[2022-05-10] MEDS: Furosemide 20 MG TAB PO SCH (13:45)
[2022-05-10] MEDS: Lidocaine 5% Patch TD SCH (15:37)
[2022-05-10] MEDS: Metoprolol Tartrate 25 MG TAB PO SCH (20:10)
[2022-05-10] MEDS: Melatonin 3 MG TAB PO PRN (20:11)
[2022-05-11] MEDS: Ipratropium/Albuterol 3 ML NEB NEB SCH ×6 (02:12→22:28)
[2022-05-11] MEDS: Transdermal Patch Removal TOP SCH (05:54)
[2022-05-11 06:04] LABS: #Eosinphils 0.1 thou/uL (0.0-0.7); #Lymphocytes 2.2 thou/uL (1.20-3.40); #Monocytes 1.1 thou/uL (0.11-0.59); #Neutrophils 8.5 thou/uL (1.40-6.50); %Basophils 0.4 % (0.0-1.0); %Eosinophils 1.1 % (0.0-10.0); %Lymphocytes 18.3 % (21.0-51.0); %Neutrophils 71.3 % (42.0-75.0); Hemoglobin 8.2 g/dL (14.0-18.0); Mean Corpuscular HGB CONC 31.4 g/dL (32.0-36.0); Mean Corpuscular Hemoglobin 26.2 pg (27.0-31.0); Mean Corpuscular Volume 83.5 fl (78.0-98.0); Platelet Count 346 10x3/uL (130-400); RBC Distribution Width 16.3 % (11.5-14.5); Red Blood Cell (RBC) Count 3.12 mill/uL (4.70-6.10); White Blood Cell (WBC) Count 11.9 10x3/uL (4.8-10.8)
[2022-05-11 06:31] LABS: Anion Gap 11 mmol/L (10-20); BUN (Urea Nitrogen) 18 mg/dL (8.4-25.7); Calc. Creatinine Clearance 159 mL/min (70-130); Calcium 8.3 mg/dL (7.8-10.44); Carbon Dioxide 28 mmol/L (22-29); Chloride 99 mmol/L (98-107); Estimated GFR 110; Glucose 93 mg/dL (70-105); Magnesium 1.6 mg/dL (1.6-2.6); Potassium 3.7 mmol/L (3.5-5.1); Sodium 134 mmol/L (136-145)
[2022-05-11] MEDS: Mometasone 200 MCG/Formoterol 5 MCG 120 PUFF INHALER INH SCH ×2 (07:18→18:20)
[2022-05-11] MEDS ORDERED: Magnesium 2 GM/50 ML(in water) 2 GM in Premix Bag 1 BAG IVPB SCH (08:00)
[2022-05-11] MEDS: Apixaban 5 MG TAB PO SCH ×2 (09:32→19:50)
[2022-05-11] MEDS: Metoprolol Tartrate 25 MG TAB PO SCH ×2 (09:32→19:51)
[2022-05-11] MEDS: Ciprofloxacin 500 MG TAB PO SCH (09:32)
[2022-05-11] MEDS: Furosemide 20 MG TAB PO SCH ×2 (09:32→15:20)
[2022-05-11] MEDS: Spironolactone 25 MG TAB PO SCH (09:33)
[2022-05-11] MEDS: predniSONE 20 MG TAB PO SCH (09:33)
[2022-05-11] MEDS: Tamsulosin HCl 0.4 MG CAP PO SCH (09:33)
[2022-05-11] MEDS: traMADol HCl 50 MG TAB PO PRN ×3 (09:44→21:25)
[2022-05-11] MEDS: Lidocaine 5% Patch TD SCH (15:20)
[2022-05-11] MEDS: Melatonin 3 MG TAB PO PRN (19:51)
[2022-05-12] MEDS: Ipratropium/Albuterol 3 ML NEB NEB SCH ×6 (02:17→22:31)
[2022-05-12] MEDS: traMADol HCl 50 MG TAB PO PRN ×2 (06:20→17:31)
[2022-05-12] MEDS: Transdermal Patch Removal TOP SCH (06:35)
[2022-05-12 06:36] LABS: #Eosinphils 0.1 thou/uL (0.0-0.7); #Lymphocytes 1.8 thou/uL (1.20-3.40); #Monocytes 0.8 thou/uL (0.11-0.59); #Neutrophils 9.2 thou/uL (1.40-6.50); %Eosinophils 1.2 % (0.0-10.0); %Monocytes 6.8 % (0.0-10.0); Hemoglobin 8.3 g/dL (14.0-18.0); Mean Corpuscular HGB CONC 30.3 g/dL (32.0-36.0); Mean Corpuscular Hemoglobin 25.6 pg (27.0-31.0); Mean Corpuscular Volume 84.6 fl (78.0-98.0); Platelet Count 356 10x3/uL (130-400); RBC Distribution Width 16.6 % (11.5-14.5); Red Blood Cell (RBC) Count 3.24 mill/uL (4.70-6.10)
[2022-05-12 07:03] LABS: Anion Gap 12 mmol/L (10-20); BUN (Urea Nitrogen) 20 mg/dL (8.4-25.7); Calc. Creatinine Clearance 164 mL/min (70-130); Calcium 8.5 mg/dL (7.8-10.44); Carbon Dioxide 27 mmol/L (22-29); Chloride 98 mmol/L (98-107); Estimated GFR 111; Glucose 108 mg/dL (70-105); Potassium 3.3 mmol/L (3.5-5.1); Sodium 134 mmol/L (136-145)
[2022-05-12] MEDS: Mometasone 200 MCG/Formoterol 5 MCG 120 PUFF INHALER INH SCH ×2 (07:53→18:30)
[2022-05-12] MEDS ORDERED: Potassium Chloride 20 MEQ TAB PO SCH (08:00)
[2022-05-12] MEDS: Metoprolol Tartrate 25 MG TAB PO SCH ×2 (08:13→20:22)
[2022-05-12] MEDS: Furosemide 20 MG TAB PO SCH ×2 (08:13→14:07)
[2022-05-12] MEDS: Ciprofloxacin 500 MG TAB PO SCH (08:14)
[2022-05-12] MEDS: predniSONE 20 MG TAB PO SCH (08:14)
[2022-05-12] MEDS: Spironolactone 25 MG TAB PO SCH (08:15)
[2022-05-12] MEDS: Tamsulosin HCl 0.4 MG CAP PO SCH (08:15)
[2022-05-12] MEDS: Apixaban 5 MG TAB PO SCH ×2 (08:15→20:20)
[2022-05-12] MEDS: Lidocaine 5% Patch TD SCH (17:30)
[2022-05-12] MEDS: Melatonin 3 MG TAB PO PRN (20:30)
[2022-05-13] MEDS: Ipratropium/Albuterol 3 ML NEB NEB SCH ×3 (02:20→11:24)
[2022-05-13] MEDS: traMADol HCl 50 MG TAB PO PRN (03:47)
[2022-05-13] MEDS: Transdermal Patch Removal TOP SCH (03:56)
[2022-05-13 07:18] LABS: Hemoglobin 8.1 g/dL (14.0-18.0); Mean Corpuscular HGB CONC 31.2 g/dL (32.0-36.0); Mean Corpuscular Hemoglobin 26.2 pg (27.0-31.0); Mean Corpuscular Volume 83.9 fl (78.0-98.0); Mean Platelet Volume 7.3 fL (7.4-10.4); Platelet Count 336 10x3/uL (130-400); RBC Distribution Width 16.9 % (11.5-14.5); Red Blood Cell (RBC) Count 3.08 mill/uL (4.70-6.10); White Blood Cell (WBC) Count 14.3 10x3/uL (4.8-10.8)
[2022-05-13 07:20] LABS: Anion Gap 12 mmol/L (10-20); BUN (Urea Nitrogen) 20 mg/dL (8.4-25.7); Calc. Creatinine Clearance 170 mL/min (70-130); Calcium 8.9 mg/dL (7.8-10.44); Carbon Dioxide 26 mmol/L (22-29); Chloride 98 mmol/L (98-107); Estimated GFR 112; Glucose 86 mg/dL (70-105); Sodium 132 mmol/L (136-145)
[2022-05-13] MEDS: Mometasone 200 MCG/Formoterol 5 MCG 120 PUFF INHALER INH SCH (07:29)
[2022-05-13] MEDS ORDERED: Potassium Chloride 20 MEQ TAB PO SCH (08:00)
[2022-05-13 08:29] LABS: Eosinophils 2 % (0-10); Hypochromia SLIGHT = 6-15 cells (100X) (0-5/hpf); Lymphocytes 20 % (21-51); MDiff Complete? YES; Monocytes 6 % (0-10); Neutrophil 72 % (42-75); Platelet Morphology Comment Appears Adequate; Polychromasia SLIGHT = 2-3 cells (100X) (0-2/hpf)
[2022-05-13] MEDS: Spironolactone 25 MG TAB PO SCH (09:11)
[2022-05-13] MEDS: Metoprolol Tartrate 25 MG TAB PO SCH (09:11)
[2022-05-13] MEDS: Ciprofloxacin 500 MG TAB PO SCH (09:11)
[2022-05-13] MEDS: predniSONE 20 MG TAB PO SCH (09:11)
[2022-05-13] MEDS: Apixaban 5 MG TAB PO SCH (09:11)
[2022-05-13] MEDS: Tamsulosin HCl 0.4 MG CAP PO SCH (09:11)
[2022-05-13] MEDS: Furosemide 20 MG TAB PO SCH (09:12)
[2022-05-13 12:28] VITALS: BP 129/72; TEMP 98.2
== END 2022-05-13 12:25 | disposition home or self-care (01) | DRG 432 ==
LOC: ERS 07:48 → ERHOLD 12:33 → 2NO 20:00 → T4-A 05-10 17:51
PROVIDERS: ADMIT Family Medicine; ATTEND Family Medicine
PROC: 30233N1 Transfusion of Nonautologous Red Blood Cells into Peripheral Vein, Percutaneous Approach (ICD-10-PCS; 2022-05-08)
PROC: 0W9G3ZZ Drainage of Peritoneal Cavity, Percutaneous Approach (ICD-10-PCS; principal; 2022-05-09)
DX: K70.31 Alcoholic cirrhosis of liver with ascites (principal); J96.21 Acute and chronic respiratory failure with hypoxia; N17.9 Acute kidney failure, unspecified; J44.1 Chronic obstructive pulmonary disease with (acute) exacerbation; I50.32 Chronic diastolic (congestive) heart failure; E87.20 Acidosis, unspecified; Z20.822 Contact with and (suspected) exposure to COVID-19; E87.6 Hypokalemia; I11.0 Hypertensive heart disease with heart failure; I48.91 Unspecified atrial fibrillation; I95.89 Other hypotension; E86.1 Hypovolemia; D64.9 Anemia, unspecified; E83.42 Hypomagnesemia; Z99.81 Dependence on supplemental oxygen; Z79.01 Long term (current) use of anticoagulants; Z86.711 Personal history of pulmonary embolism; Z86.718 Personal history of other venous thrombosis and embolism; Z88.8 Allergy status to other drugs, medicaments and biological substances; Z79.899 Other long term (current) drug therapy; Z83.6 Family history of other diseases of the respiratory system
CPT/HCPCS: 36415; 36416; 36430; 49083; 71045; 71046; 74176; 76705; 80048; 80053; 80202; 82140; 82550; 83605; 83735; 83880; 84484; 85025; 85060; 86140; 86850; 86900; 86901; 87040; 87070; 87081; 87205; 87811; 89051; 93005; 93970; 94640; 94664; 96365; 96366; 96367; 96375; 97139; J1720; J1956; J2543; J2930; J3010; J3370; J3475; J7512; J7611; J7620; P9016; P9047; U0002

== ENCOUNTER 2022-05-27 13:18 | Emergency (ER) | payer OTHER ==
[2022-05-27] MEDS ORDERED: Ipratropium/Albuterol 3 ML NEB ONE (16:20)
[2022-05-27] MEDS ORDERED: Morphine 2 MG/ML VIAL ONE (16:49)
[2022-05-27 16:55] LABS: #Basophils 0.1 thou/uL (0.0-0.2); #Eosinphils 0.3 thou/uL (0.0-0.7); #Lymphocytes 2.3 thou/uL (1.20-3.40); #Monocytes 0.9 thou/uL (0.11-0.59); #Neutrophils 8.8 thou/uL (1.40-6.50); %Basophils 0.5 % (0.0-1.0); %Eosinophils 2.5 % (0.0-10.0); %Lymphocytes 18.8 % (21.0-51.0); %Monocytes 6.9 % (0.0-10.0); %Neutrophils 71.3 % (42.0-75.0); Hemoglobin 8.4 g/dL (14.0-18.0); Mean Corpuscular HGB CONC 31.7 g/dL (32.0-36.0); Mean Corpuscular Hemoglobin 25.9 pg (27.0-31.0); Mean Corpuscular Volume 81.5 fl (78.0-98.0); Mean Platelet Volume 8.6 fL (7.4-10.4); Platelet Count 271 10x3/uL (130-400); RBC Distribution Width 16.9 % (11.5-14.5); Red Blood Cell (RBC) Count 3.25 mill/uL (4.70-6.10); White Blood Cell (WBC) Count 12.4 10x3/uL (4.8-10.8)
[2022-05-27 17:18] LABS: ALT (SGPT) 35 U/L (8-55); AST (SGOT) 28 U/L (5-34); Albumin 3.3 g/dL (3.5-5.0); Alkaline Phosphatase 171 U/L (40-110); Anion Gap 12 mmol/L (10-20); BUN (Urea Nitrogen) 9 mg/dL (8.4-25.7); Bilirubin, Total 0.6 mg/dL (0.2-1.2); Calc. Creatinine Clearance 0 mL/min (70-130); Calcium 8.6 mg/dL (7.8-10.44); Carbon Dioxide 29 mmol/L (22-29); Chloride 104 mmol/L (98-107); Estimated GFR 110; Globulin 2.7 g/dL (2.4-3.5); Glucose 86 mg/dL (70-105); Potassium 3.7 mmol/L (3.5-5.1); Sodium 141 mmol/L (136-145)
[2022-05-27 17:59] LABS: SARS-CoV-2 NAA Rapid Test Not Detected (NotDetected)
[2022-05-27] MEDS ORDERED: Furosemide 20 MG/2 ML VIAL ONE (18:05)
[2022-05-27] MEDS ORDERED: predniSONE 20 MG TAB ONE (18:05)
[2022-05-28] MEDS ORDERED: Ondansetron PF 4 MG/2 ML Vial ONE (01:56)
== END 2022-05-27 22:00 | disposition home or self-care (01) ==
LOC: ERS 13:18
DX: J44.1 Chronic obstructive pulmonary disease with (acute) exacerbation (principal); I11.0 Hypertensive heart disease with heart failure; I50.9 Heart failure, unspecified; D72.829 Elevated white blood cell count, unspecified; I25.10 Atherosclerotic heart disease of native coronary artery without angina pectoris; Z20.822 Contact with and (suspected) exposure to COVID-19; Z87.891 Personal history of nicotine dependence
CPT/HCPCS: 71045; 80053; 83880; 84484; 85025; 93005; 94640; 96374; J1940; J2272; J7512; J7620

== ENCOUNTER 2022-06-28 09:13 | Emergency (ER) | payer MEDICAID, OTHER ==
[2022-06-28] MEDS ORDERED: Furosemide 40 MG/4 ML VIAL ONE (10:19)
[2022-06-28 10:25] LABS: #Lymphocytes 0.9 thou/uL (1.20-3.40); #Monocytes 0.3 thou/uL (0.11-0.59); #Neutrophils 8.3 thou/uL (1.40-6.50); %Basophils 0.4 % (0.0-1.0); %Eosinophils 0.1 % (0.0-10.0); %Lymphocytes 9.8 % (21.0-51.0); %Monocytes 2.7 % (0.0-10.0); %Neutrophils 86.9 % (42.0-75.0); Hemoglobin 9.7 g/dL (14.0-18.0); Mean Corpuscular HGB CONC 30.9 g/dL (32.0-36.0); Mean Corpuscular Hemoglobin 24.5 pg (27.0-31.0); Mean Corpuscular Volume 79.3 fl (78.0-98.0); Mean Platelet Volume 8.6 fL (7.4-10.4); Platelet Count 324 10x3/uL (130-400); RBC Distribution Width 15.8 % (11.5-14.5); Red Blood Cell (RBC) Count 3.94 mill/uL (4.70-6.10); White Blood Cell (WBC) Count 9.6 10x3/uL (4.8-10.8)
[2022-06-28 10:51] LABS: ALT (SGPT) 20 U/L (8-55); AST (SGOT) 20 U/L (5-34); Albumin 3.6 g/dL (3.5-5.0); Alkaline Phosphatase 116 U/L (40-110); Anion Gap 13 mmol/L (10-20); BUN (Urea Nitrogen) 13 mg/dL (8.4-25.7); Bilirubin, Total 0.2 mg/dL (0.2-1.2); Calc. Creatinine Clearance 0 mL/min (70-130); Calcium 9.4 mg/dL (7.8-10.44); Carbon Dioxide 24 mmol/L (22-29); Chloride 106 mmol/L (98-107); Estimated GFR 103; Globulin 3.3 g/dL (2.4-3.5); Glucose 121 mg/dL (70-105); Potassium 4.2 mmol/L (3.5-5.1); Protein, Total 6.9 g/dL (6.0-8.3); Sodium 139 mmol/L (136-145)
[2022-06-28 11:12] LABS: Bilirubin Negative (Negative); Blood, Urine Negative (Negative); Clarity Clear (Clear); Glucose, Urine (Dipstick) Normal (Negative); Ketone, Urine Negative (Negative); Leukocyte Negative Leu/uL (Negative); Nitrite Negative (Negative); Protein, Urine (Dipstick) Negative (Neg-Trace); Specific Gravity, Urine 1.008 (1.002-1.036); Urobilinogen Normal mg/dL (Less than 2)
== END 2022-06-28 12:35 | disposition home or self-care (01) ==
LOC: ERS 09:13
DX: R60.0 Localized edema (principal); I25.10 Atherosclerotic heart disease of native coronary artery without angina pectoris; I11.0 Hypertensive heart disease with heart failure; I50.9 Heart failure, unspecified; J44.9 Chronic obstructive pulmonary disease, unspecified; Z87.891 Personal history of nicotine dependence
CPT/HCPCS: 36415; 71045; 80053; 81003; 83605; 83880; 84484; 85025; 87040; 87086; 93005; 96374; J1940

== ENCOUNTER 2022-07-15 08:35 | Inpatient (IN) | payer OTHER ==
[2022-07-15 10:08] LABS: #Eosinphils 0.1 thou/uL (0.0-0.7); #Monocytes 0.8 thou/uL (0.11-0.59); #Neutrophils 7.6 thou/uL (1.40-6.50); %Basophils 0.4 % (0.0-1.0); %Lymphocytes 18.5 % (21.0-51.0); %Monocytes 7.9 % (0.0-10.0); %Neutrophils 72.2 % (42.0-75.0); Hemoglobin 8.7 g/dL (14.0-18.0); Mean Corpuscular HGB CONC 31.5 g/dL (32.0-36.0); Mean Corpuscular Hemoglobin 24.5 pg (27.0-31.0); Mean Corpuscular Volume 77.6 fl (78.0-98.0); Mean Platelet Volume 8.8 fL (7.4-10.4); Platelet Count 254 10x3/uL (130-400); Red Blood Cell (RBC) Count 3.54 mill/uL (4.70-6.10); White Blood Cell (WBC) Count 10.5 10x3/uL (4.8-10.8)
[2022-07-15 10:15] LABS: ALT (SGPT) 36 U/L (8-55); AST (SGOT) 30 U/L (5-34); Albumin 3.5 g/dL (3.4-4.8); Alkaline Phosphatase 121 U/L (40-110); Anion Gap 12 mmol/L (10-20); BUN (Urea Nitrogen) 15 mg/dL (8.4-25.7); Bilirubin, Total 0.2 mg/dL (0.2-1.2); Calc. Creatinine Clearance 0 mL/min (70-130); Carbon Dioxide 29 mmol/L (23-31); Chloride 103 mmol/L (98-107); Estimated GFR 99; Globulin 3.1 g/dL (2.4-3.5); Glucose 84 mg/dL (80-115); Potassium 4.2 mmol/L (3.5-5.1); Protein, Total 6.6 g/dL (5.8-8.1); Sodium 140 mmol/L (136-145)
[2022-07-15] MEDS ORDERED: Ondansetron ODT 4 MG TAB PO PRN (11:00)
[2022-07-15] MEDS ORDERED: Senokot S 8.6-50 MG TAB PO PRN (11:00)
[2022-07-15] MEDS ORDERED: Calcium Carbonate 500 MG ChewTAB PO PRN (11:00)
[2022-07-15] MEDS ORDERED: Ondansetron PF 4 MG/2 ML Vial IVP PRN (11:00)
[2022-07-15] MEDS ORDERED: Furosemide 100 MG/10 ML VIAL SLOW IVP SCH (11:45)
[2022-07-15] MEDS ORDERED: predniSONE 50 MG TAB PO SCH (11:45)
[2022-07-15] MEDS ORDERED: Furosemide 40 MG/4 ML VIAL ONE (12:01)
[2022-07-15] MEDS: Albumin 25% 25 GM/100 ML BOT IVPB SCH ×3 (12:04→23:54)
[2022-07-15] MEDS ORDERED: Morphine 2 MG/ML VIAL ONE (12:48)
[2022-07-15] MEDS: Morphine 2 MG/ML VIAL SLOW IVP PRN (12:49)
[2022-07-15 13:11] LABS: PTT 29.8 sec (22.9-36.1)
[2022-07-15] MEDS ORDERED: Sodium Bicarbonate 2.5 MEQ/5 ML VIAL ONE (14:53)
[2022-07-15] MEDS ORDERED: Lidocaine 1% PF 5 ML VIAL ONE (14:53)
[2022-07-15 16:09] VITALS: BMI 25.2
[2022-07-15 16:20] LABS: RBC Count-Automated (BF) 67 /cu.mm; WBC/Nucleated-Auto (BF) 190 /cu.mm
[2022-07-15 16:54] LABS: BF Color Yellow; Body Fluid Source Ascites Body Fluid; Clarity Clear (Clear); Tube # EDTA
[2022-07-15 16:56] LABS: BF Segmented Neutrophils 1 %; Cell Count Non Hematic 60 %; Lymphocytes 39 %
[2022-07-15] MEDS: Mometasone 200 MCG/Formoterol 5 MCG 120 PUFF INHALER INH SCH (18:45)
[2022-07-15] MEDS: Albuterol 200 PUFF (6.7GM INHALER) INH PRN (18:45)
[2022-07-15] MEDS: Metoprolol Tartrate 25 MG TAB PO SCH (20:11)
[2022-07-15] MEDS: Acetaminophen 325 MG TAB PO PRN (23:54)
[2022-07-16] MEDS: Melatonin 3 MG TAB PO PRN ×2 (00:58→20:57)
[2022-07-16] MEDS: Furosemide 40 MG/4 ML VIAL SLOW IVP SCH ×2 (05:18→14:24)
[2022-07-16] MEDS: Albumin 25% 25 GM/100 ML BOT IVPB SCH ×4 (05:18→23:36)
[2022-07-16] MEDS: Acetaminophen 325 MG TAB PO PRN ×2 (05:28→20:56)
[2022-07-16] MEDS: Albuterol 200 PUFF (6.7GM INHALER) INH PRN ×3 (05:30→19:05)
[2022-07-16 06:19] LABS: #Lymphocytes 1.5 thou/uL (1.20-3.40); #Monocytes 0.5 thou/uL (0.11-0.59); #Neutrophils 7.1 thou/uL (1.40-6.50); %Basophils 0.4 % (0.0-1.0); %Eosinophils 0.5 % (0.0-10.0); %Lymphocytes 16.2 % (21.0-51.0); %Monocytes 5.3 % (0.0-10.0); %Neutrophils 77.7 % (42.0-75.0); Hemoglobin 8.9 g/dL (14.0-18.0); Mean Corpuscular HGB CONC 31.2 g/dL (32.0-36.0); Mean Corpuscular Volume 76.9 fl (78.0-98.0); Mean Platelet Volume 8.8 fL (7.4-10.4); Platelet Count 264 10x3/uL (130-400); RBC Distribution Width 15.8 % (11.5-14.5); Red Blood Cell (RBC) Count 3.71 mill/uL (4.70-6.10); White Blood Cell (WBC) Count 9.1 10x3/uL (4.8-10.8)
[2022-07-16 06:38] LABS: ALT (SGPT) 31 U/L (8-55); AST (SGOT) 27 U/L (5-34); Albumin 4.4 g/dL (3.4-4.8); Alkaline Phosphatase 117 U/L (40-110); Anion Gap 16 mmol/L (10-20); BUN (Urea Nitrogen) 17 mg/dL (8.4-25.7); Bilirubin, Total 0.2 mg/dL (0.2-1.2); Calc. Creatinine Clearance 131 mL/min (70-130); Calcium 9.4 mg/dL (7.8-10.44); Carbon Dioxide 26 mmol/L (23-31); Chloride 100 mmol/L (98-107); Estimated GFR 104; Globulin 2.8 g/dL (2.4-3.5); Glucose 100 mg/dL (80-115); Magnesium 2.2 mg/dL (1.6-2.6); Potassium 3.6 mmol/L (3.5-5.1); Protein, Total 7.2 g/dL (5.8-8.1); Sodium 138 mmol/L (136-145)
[2022-07-16] MEDS: Mometasone 200 MCG/Formoterol 5 MCG 120 PUFF INHALER INH SCH ×2 (07:14→19:06)
[2022-07-16] MEDS ORDERED: Spironolactone 25 MG TAB PO SCH (08:00)
[2022-07-16] MEDS ORDERED: Potassium Chloride 20 MEQ TAB PO SCH (08:00)
[2022-07-16] MEDS: Metoprolol Tartrate 25 MG TAB PO SCH ×2 (08:41→20:51)
[2022-07-16] MEDS: Tamsulosin HCl 0.4 MG CAP PO SCH (08:42)
[2022-07-16] MEDS: predniSONE 20 MG TAB PO SCH (08:42)
[2022-07-16] MEDS: Mupirocin 2% Ointment 22 GM Tube TOP SCH (10:34)
[2022-07-16] MEDS: Morphine 2 MG/ML VIAL SLOW IVP PRN (11:16)
[2022-07-16] MEDS ORDERED: Furosemide 40 MG/4 ML VIAL SLOW IVP SCH (18:00)
[2022-07-17] MEDS: Furosemide 40 MG/4 ML VIAL SLOW IVP SCH ×2 (05:32→13:38)
[2022-07-17] MEDS: Albumin 25% 25 GM/100 ML BOT IVPB SCH (05:32)
[2022-07-17 07:43] LABS: #Eosinphils 0.1 thou/uL (0.0-0.7); #Lymphocytes 1.9 thou/uL (1.20-3.40); #Monocytes 0.7 thou/uL (0.11-0.59); #Neutrophils 5.6 thou/uL (1.40-6.50); %Basophils 0.5 % (0.0-1.0); %Lymphocytes 23.1 % (21.0-51.0); %Monocytes 7.9 % (0.0-10.0); %Neutrophils 67.5 % (42.0-75.0); Hemoglobin 8.4 g/dL (14.0-18.0); Mean Corpuscular HGB CONC 31.4 g/dL (32.0-36.0); Mean Corpuscular Volume 76.4 fl (78.0-98.0); Mean Platelet Volume 8.9 fL (7.4-10.4); Platelet Count 265 10x3/uL (130-400); RBC Distribution Width 15.9 % (11.5-14.5); White Blood Cell (WBC) Count 8.3 10x3/uL (4.8-10.8)
[2022-07-17 08:06] LABS: ALT (SGPT) 21 U/L (8-55); AST (SGOT) 14 U/L (5-34); Albumin 5.1 g/dL (3.4-4.8); Alkaline Phosphatase 90 U/L (40-110); Anion Gap 15 mmol/L (10-20); BUN (Urea Nitrogen) 18 mg/dL (8.4-25.7); Bilirubin, Total 0.3 mg/dL (0.2-1.2); Calc. Creatinine Clearance 127 mL/min (70-130); Calcium 9.7 mg/dL (7.8-10.44); Carbon Dioxide 27 mmol/L (23-31); Chloride 97 mmol/L (98-107); Estimated GFR 103; Globulin 2.6 g/dL (2.4-3.5); Glucose 81 mg/dL (80-115); Magnesium 2.3 mg/dL (1.6-2.6); Potassium 3.7 mmol/L (3.5-5.1); Protein, Total 7.7 g/dL (5.8-8.1); Sodium 135 mmol/L (136-145)
[2022-07-17] MEDS: Spironolactone 25 MG TAB PO SCH (08:14)
[2022-07-17] MEDS: Metoprolol Tartrate 25 MG TAB PO SCH ×2 (08:15→20:40)
[2022-07-17] MEDS: Tamsulosin HCl 0.4 MG CAP PO SCH (08:15)
[2022-07-17] MEDS: predniSONE 20 MG TAB PO SCH (08:15)
[2022-07-17] MEDS: Mometasone 200 MCG/Formoterol 5 MCG 120 PUFF INHALER INH SCH ×2 (08:16→17:28)
[2022-07-17] MEDS: Mupirocin 2% Ointment 22 GM Tube TOP SCH (08:21)
[2022-07-17] MEDS ORDERED: Potassium Chloride 20 MEQ TAB PO SCH (09:00)
[2022-07-17] MEDS ORDERED: methylPREDNISolone Sod Succ/PF 125 MG/2 ML VIAL IVP SCH (13:00)
[2022-07-17] MEDS: Albuterol 200 PUFF (6.7GM INHALER) INH PRN (20:00)
[2022-07-17] MEDS: Acetaminophen 325 MG TAB PO PRN (20:41)
[2022-07-17] MEDS: Melatonin 3 MG TAB PO PRN (20:44)
[2022-07-18] MEDS: Furosemide 40 MG/4 ML VIAL SLOW IVP SCH ×2 (04:47→12:56)
[2022-07-18] MEDS: Albuterol 200 PUFF (6.7GM INHALER) INH PRN (07:25)
[2022-07-18] MEDS: Mometasone 200 MCG/Formoterol 5 MCG 120 PUFF INHALER INH SCH (07:26)
[2022-07-18 07:36] LABS: Anion Gap 15 mmol/L (10-20); BUN (Urea Nitrogen) 25 mg/dL (8.4-25.7); Calc. Creatinine Clearance 119 mL/min (70-130); Calcium 9.8 mg/dL (7.8-10.44); Carbon Dioxide 27 mmol/L (23-31); Chloride 96 mmol/L (98-107); Estimated GFR 101; Glucose 121 mg/dL (80-115); Magnesium 2.4 mg/dL (1.6-2.6); Potassium 4.2 mmol/L (3.5-5.1); Sodium 134 mmol/L (136-145)
[2022-07-18] MEDS: Metoprolol Tartrate 25 MG TAB PO SCH (09:29)
[2022-07-18] MEDS: Tamsulosin HCl 0.4 MG CAP PO SCH (09:29)
[2022-07-18] MEDS: Spironolactone 25 MG TAB PO SCH (09:30)
[2022-07-18] MEDS: predniSONE 20 MG TAB PO SCH (09:30)
[2022-07-18] MEDS: Mupirocin 2% Ointment 22 GM Tube TOP SCH (09:30)
[2022-07-18 12:31] VITALS: BP 122/74; TEMP 98.2
== END 2022-07-18 13:13 | disposition home or self-care (01) | DRG 433 ==
LOC: SUATTDRO 08:35 → ERS 08:35 → ERHOLD 11:20 → T4-A 14:22
PROVIDERS: ADMIT Internal Medicine; ATTEND Internal Medicine
PROC: 0W9G3ZZ Drainage of Peritoneal Cavity, Percutaneous Approach (ICD-10-PCS; principal; 2022-07-15)
PROC: 30233J1 Transfusion of Nonautologous Serum Albumin into Peripheral Vein, Percutaneous Approach (ICD-10-PCS; 2022-07-15)
DX: K70.31 Alcoholic cirrhosis of liver with ascites (principal); J90 Pleural effusion, not elsewhere classified; J96.11 Chronic respiratory failure with hypoxia; J44.9 Chronic obstructive pulmonary disease, unspecified; D64.9 Anemia, unspecified; R91.1 Solitary pulmonary nodule; N40.0 Benign prostatic hyperplasia without lower urinary tract symptoms; I25.10 Atherosclerotic heart disease of native coronary artery without angina pectoris; F41.9 Anxiety disorder, unspecified; I11.0 Hypertensive heart disease with heart failure; I50.9 Heart failure, unspecified; Z86.711 Personal history of pulmonary embolism; Z86.718 Personal history of other venous thrombosis and embolism; Z79.82 Long term (current) use of aspirin; Z88.1 Allergy status to other antibiotic agents; Z88.8 Allergy status to other drugs, medicaments and biological substances; Z79.899 Other long term (current) drug therapy; Z79.51 Long term (current) use of inhaled steroids
CPT/HCPCS: 36415; 49083; 71045; 80048; 80053; 82042; 82140; 83615; 83735; 83880; 84484; 85025; 85060; 85610; 85730; 87070; 87205; 89051; 93005; 97139; J1650; J1940; J2272; J2930; J7512; P9047

== ENCOUNTER 2022-07-29 07:36 | Emergency (ER) | payer OTHER ==
[2022-07-29] MEDS ORDERED: methylPREDNISolone Sod Succ/PF 125 MG/2 ML VIAL ONE (11:05)
[2022-07-29] MEDS ORDERED: Albuterol 2.5 MG/0.5 ML NEB ONE (11:12)
[2022-07-29 11:16] LABS: #Basophils 0.1 thou/uL (0.0-0.2); #Eosinphils 0.3 thou/uL (0.0-0.7); #Lymphocytes 2.1 thou/uL (1.20-3.40); #Monocytes 0.8 thou/uL (0.11-0.59); #Neutrophils 8.4 thou/uL (1.40-6.50); %Basophils 0.5 % (0.0-1.0); %Eosinophils 2.6 % (0.0-10.0); %Lymphocytes 17.9 % (21.0-51.0); %Monocytes 6.8 % (0.0-10.0); %Neutrophils 72.2 % (42.0-75.0); Hemoglobin 9.2 g/dL (14.0-18.0); Mean Corpuscular HGB CONC 30.3 g/dL (32.0-36.0); Mean Corpuscular Volume 75.8 fl (78.0-98.0); Mean Platelet Volume 9.7 fL (7.4-10.4); Platelet Count 250 10x3/uL (130-400); RBC Distribution Width 17.1 % (11.5-14.5); Red Blood Cell (RBC) Count 4.01 mill/uL (4.70-6.10); White Blood Cell (WBC) Count 11.6 10x3/uL (4.8-10.8)
[2022-07-29] MEDS ORDERED: Ipratropium/Albuterol 3 ML NEB ONE ×2 (11:16→11:17)
[2022-07-29] MEDS ORDERED: Divalproex Sodium 250 MG (DR) TAB ONE (11:17)
[2022-07-29 11:57] LABS: ALT (SGPT) 19 U/L (8-55); AST (SGOT) 44 U/L (5-34); Albumin 3.8 g/dL (3.4-4.8); Alkaline Phosphatase 127 U/L (40-110); Anion Gap 17 mmol/L (10-20); BUN (Urea Nitrogen) 11 mg/dL (8.4-25.7); Bilirubin, Total 0.3 mg/dL (0.2-1.2); Calc. Creatinine Clearance 0 mL/min (70-130); Calcium 8.9 mg/dL (7.8-10.44); Carbon Dioxide 22 mmol/L (23-31); Chloride 101 mmol/L (98-107); Estimated GFR 102; Globulin 3.6 g/dL (2.4-3.5); Glucose 90 mg/dL (80-115); Potassium 5.1 mmol/L (3.5-5.1); Protein, Total 7.4 g/dL (5.8-8.1); Sodium 135 mmol/L (136-145)
== END 2022-07-29 12:47 | disposition home or self-care (01) ==
LOC: ERS 07:36
DX: J44.9 Chronic obstructive pulmonary disease, unspecified (principal); I50.9 Heart failure, unspecified; I11.0 Hypertensive heart disease with heart failure; Z86.718 Personal history of other venous thrombosis and embolism; Z86.711 Personal history of pulmonary embolism; F17.200 Nicotine dependence, unspecified, uncomplicated; Z79.899 Other long term (current) drug therapy; Z79.01 Long term (current) use of anticoagulants
CPT/HCPCS: 71045; 80053; 83880; 84484; 85025; 93005; 96374; J2930; J7611; J7620

== ENCOUNTER 2022-08-06 10:06 | Outpatient (CLI) | payer OTHER ==
[2022-08-06] MEDS ORDERED: Iopamidol 370 76% 100 ML VIAL ONE (10:08)
== END 2022-08-06 10:07 | disposition home or self-care (01) ==
LOC: CT 10:06
PROVIDERS: ATTEND Nurse Practitioner Family
DX: R91.8 Other nonspecific abnormal finding of lung field (principal); J92.9 Pleural plaque without asbestos; R18.8 Other ascites; M43.9 Deforming dorsopathy, unspecified; Z98.890 Other specified postprocedural states
CPT/HCPCS: 71260; Q9967

== ENCOUNTER 2022-08-09 10:54 | Inpatient (IN) | payer OTHER ==
[2022-08-09] MEDS ORDERED: Furosemide 40 MG/4 ML VIAL ONE (11:15)
[2022-08-09 11:48] LABS: #Eosinphils 0.2 thou/uL (0.0-0.7); #Lymphocytes 2.6 thou/uL (1.20-3.40); #Monocytes 0.9 thou/uL (0.11-0.59); #Neutrophils 8.4 thou/uL (1.40-6.50); %Eosinophils 1.5 % (0.0-10.0); %Lymphocytes 21.3 % (21.0-51.0); %Monocytes 7.6 % (0.0-10.0); %Neutrophils 69.5 % (42.0-75.0); Hemoglobin 10.2 g/dL (14.0-18.0); Mean Corpuscular HGB CONC 32.6 g/dL (32.0-36.0); Mean Corpuscular Hemoglobin 24.4 pg (27.0-31.0); Mean Corpuscular Volume 74.6 fl (78.0-98.0); Mean Platelet Volume 8.8 fL (7.4-10.4); Platelet Count 279 10x3/uL (130-400)
[2022-08-09 12:10] LABS: ALT (SGPT) 28 U/L (8-55); AST (SGOT) 22 U/L (5-34); Albumin 3.8 g/dL (3.4-4.8); Alkaline Phosphatase 131 U/L (40-110); Anion Gap 16 mmol/L (10-20); BUN (Urea Nitrogen) 9 mg/dL (8.4-25.7); Bilirubin, Total 0.5 mg/dL (0.2-1.2); Calc. Creatinine Clearance 0 mL/min (70-130); Calcium 9.2 mg/dL (7.8-10.44); Carbon Dioxide 25 mmol/L (23-31); Chloride 99 mmol/L (98-107); Estimated GFR 101; Globulin 3.1 g/dL (2.4-3.5); Glucose 80 mg/dL (80-115); Lipase 49 U/L (8-78); Potassium 3.8 mmol/L (3.5-5.1); Protein, Total 6.9 g/dL (5.8-8.1); Sodium 136 mmol/L (136-145)
[2022-08-09 12:45] LABS: MDiff Complete? YES; Microcytosis SLIGHT = 6-15 cells (100X) (0-5/hpf); Platelet Morphology Comment Appears Adequate; Polychromasia SLIGHT = 2-3 cells (100X) (0-2/hpf)
[2022-08-09] MEDS ORDERED: Acetaminophen 325 MG TAB PO PRN (13:39)
[2022-08-09] MEDS ORDERED: Ondansetron PF 4 MG/2 ML Vial IVP PRN (13:41)
[2022-08-09] MEDS ORDERED: Morphine 2 MG/ML VIAL SLOW IVP PRN (13:41)
[2022-08-09] MEDS ORDERED: Spironolactone 100 MG TAB PO SCH (13:45)
[2022-08-09] MEDS ORDERED: Electrolyte Replacement Protocol 1 EACH FS SCH (13:45)
[2022-08-09 15:29] LABS: Troponin I 0.014 ng/mL (< 0.028)
[2022-08-09] MEDS: methylPREDNISolone Sod Succ 40 MG VIAL IVP SCH ×2 (15:32→20:29)
[2022-08-09] MEDS: Albumin 25% 25 GM/100 ML BOT IVPB SCH ×2 (15:32→20:27)
[2022-08-09] MEDS: Furosemide 40 MG/4 ML VIAL SLOW IVP SCH (15:32)
[2022-08-09] MEDS: HYDROcodone/Acetaminophen 5/325 mg Tablet PO PRN ×2 (15:38→20:29)
[2022-08-09 15:57] VITALS: BMI 25.0
[2022-08-09 17:53] LABS: Troponin I Less than 0.010 ng/mL (< 0.028)
[2022-08-10] MEDS: Albumin 25% 25 GM/100 ML BOT IVPB SCH ×2 (01:36→07:50)
[2022-08-10] MEDS: HYDROcodone/Acetaminophen 5/325 mg Tablet PO PRN ×2 (01:40→20:38)
[2022-08-10] MEDS: Furosemide 40 MG/4 ML VIAL SLOW IVP SCH ×2 (05:52→14:05)
[2022-08-10 06:27] LABS: #Lymphocytes 0.6 thou/uL (1.20-3.40); #Monocytes 0.1 thou/uL (0.11-0.59); #Neutrophils 7.6 thou/uL (1.40-6.50); %Eosinophils 0.2 % (0.0-10.0); %Lymphocytes 7.7 % (21.0-51.0); %Monocytes 0.6 % (0.0-10.0); %Neutrophils 91.5 % (42.0-75.0); Hemoglobin 9.1 g/dL (14.0-18.0); Mean Corpuscular HGB CONC 31.6 g/dL (32.0-36.0); Mean Corpuscular Hemoglobin 24.1 pg (27.0-31.0); Mean Corpuscular Volume 76.1 fl (78.0-98.0); Mean Platelet Volume 9.2 fL (7.4-10.4); Platelet Count 239 10x3/uL (130-400); RBC Distribution Width 16.9 % (11.5-14.5); White Blood Cell (WBC) Count 8.3 10x3/uL (4.8-10.8)
[2022-08-10 06:47] LABS: ALT (SGPT) 23 U/L (8-55); AST (SGOT) 17 U/L (5-34); Albumin 4.2 g/dL (3.4-4.8); Alkaline Phosphatase 108 U/L (40-110); Anion Gap 13 mmol/L (10-20); BUN (Urea Nitrogen) 13 mg/dL (8.4-25.7); Bilirubin, Total 0.2 mg/dL (0.2-1.2); Calc. Creatinine Clearance 131 mL/min (70-130); Calcium 9.4 mg/dL (7.8-10.44); Carbon Dioxide 23 mmol/L (23-31); Chloride 101 mmol/L (98-107); Estimated GFR 104; Globulin 2.6 g/dL (2.4-3.5); Glucose 156 mg/dL (80-115); Potassium 4.2 mmol/L (3.5-5.1); Protein, Total 6.8 g/dL (5.8-8.1); Sodium 133 mmol/L (136-145)
[2022-08-10] MEDS: Spironolactone 100 MG TAB PO SCH (07:50)
[2022-08-10] MEDS: methylPREDNISolone Sod Succ 40 MG VIAL IVP SCH ×3 (07:51→20:38)
[2022-08-10] MEDS ORDERED: Cyclobenzaprine 10 MG TAB PO SCH (08:45)
[2022-08-10] MEDS ORDERED: Lidocaine 4% Patch TD SCH (08:45)
[2022-08-10] MEDS: Lidocaine 4% Patch TD SCH (10:14)
[2022-08-10] MEDS: Cyclobenzaprine 10 MG TAB PO PRN (20:39)
[2022-08-10] MEDS: Transdermal Patch Removal TOP SCH (20:46)
[2022-08-11] MEDS: HYDROcodone/Acetaminophen 5/325 mg Tablet PO PRN ×2 (05:18→19:59)
[2022-08-11] MEDS: Furosemide 40 MG/4 ML VIAL SLOW IVP SCH (05:19)
[2022-08-11 06:41] LABS: ALT (SGPT) 20 U/L (8-55); AST (SGOT) 13 U/L (5-34); Albumin 4.3 g/dL (3.4-4.8); Alkaline Phosphatase 97 U/L (40-110); Anion Gap 13 mmol/L (10-20); BUN (Urea Nitrogen) 20 mg/dL (8.4-25.7); Bilirubin, Total Less than 0.2 mg/dL (0.2-1.2); Calc. Creatinine Clearance 129 mL/min (70-130); Calcium 9.4 mg/dL (7.8-10.44); Carbon Dioxide 26 mmol/L (23-31); Chloride 101 mmol/L (98-107); Estimated GFR 104; Globulin 2.7 g/dL (2.4-3.5); Glucose 121 mg/dL (80-115); Potassium 4.1 mmol/L (3.5-5.1); Sodium 136 mmol/L (136-145)
[2022-08-11] MEDS: Lidocaine 4% Patch TD SCH (07:56)
[2022-08-11] MEDS: Spironolactone 100 MG TAB PO SCH (07:56)
[2022-08-11] MEDS: methylPREDNISolone Sod Succ 40 MG VIAL IVP SCH ×2 (07:57→19:59)
[2022-08-11] MEDS: Tamsulosin HCl 0.4 MG CAP PO SCH (07:57)
[2022-08-11] MEDS: Furosemide 40 MG TAB PO SCH (13:59)
[2022-08-11] MEDS: Cyclobenzaprine 10 MG TAB PO PRN (19:59)
[2022-08-11] MEDS: Transdermal Patch Removal TOP SCH (20:00)
[2022-08-12] MEDS: HYDROcodone/Acetaminophen 5/325 mg Tablet PO PRN (05:33)
[2022-08-12 06:50] LABS: ALT (SGPT) 22 U/L (8-55); AST (SGOT) 15 U/L (5-34); Albumin 4.3 g/dL (3.4-4.8); Alkaline Phosphatase 93 U/L (40-110); Anion Gap 15 mmol/L (10-20); BUN (Urea Nitrogen) 21 mg/dL (8.4-25.7); Bilirubin, Total 0.2 mg/dL (0.2-1.2); Calc. Creatinine Clearance 128 mL/min (70-130); Calcium 9.4 mg/dL (7.8-10.44); Carbon Dioxide 23 mmol/L (23-31); Chloride 104 mmol/L (98-107); Estimated GFR 103; Globulin 2.7 g/dL (2.4-3.5); Glucose 108 mg/dL (80-115); Potassium 4.6 mmol/L (3.5-5.1); Sodium 137 mmol/L (136-145)
[2022-08-12] MEDS: Spironolactone 100 MG TAB PO SCH (08:45)
[2022-08-12] MEDS: Tamsulosin HCl 0.4 MG CAP PO SCH (08:45)
[2022-08-12] MEDS: Furosemide 40 MG TAB PO SCH (08:45)
[2022-08-12] MEDS: methylPREDNISolone Sod Succ 40 MG VIAL IVP SCH (08:45)
[2022-08-12] MEDS: Lidocaine 4% Patch TD SCH (08:46)
[2022-08-12 09:01] VITALS: BP 145/84; TEMP 97.9
== END 2022-08-12 10:51 | disposition home or self-care (01) | DRG 433 ==
LOC: ERS 10:54 → T4-A 13:53
PROVIDERS: ADMIT Family Medicine; ATTEND Family Medicine
PROC: 30233J1 Transfusion of Nonautologous Serum Albumin into Peripheral Vein, Percutaneous Approach (ICD-10-PCS; principal; 2022-08-09)
DX: K70.31 Alcoholic cirrhosis of liver with ascites (principal); J44.1 Chronic obstructive pulmonary disease with (acute) exacerbation; N40.0 Benign prostatic hyperplasia without lower urinary tract symptoms; I25.10 Atherosclerotic heart disease of native coronary artery without angina pectoris; I50.9 Heart failure, unspecified; I11.0 Hypertensive heart disease with heart failure; F41.9 Anxiety disorder, unspecified; Z88.1 Allergy status to other antibiotic agents; Z88.8 Allergy status to other drugs, medicaments and biological substances; Z86.718 Personal history of other venous thrombosis and embolism; Z79.899 Other long term (current) drug therapy; Z79.51 Long term (current) use of inhaled steroids; Z98.890 Other specified postprocedural states; Z87.891 Personal history of nicotine dependence
CPT/HCPCS: 36415; 71045; 76705; 80053; 82140; 83605; 83690; 83880; 84484; 85025; 93005; 94640; 94760; 96374; 97139; J1940; J2920; J7611; P9047

== ENCOUNTER 2022-11-05 13:49 | Emergency (ER) | payer OTHER ==
[2022-11-05 14:51] LABS: #Basophils 0.1 thou/uL (0.0-0.2); #Eosinphils 0.2 thou/uL (0.0-0.7); #Neutrophils 8.5 thou/uL (1.40-6.50); %Basophils 0.9 % (0.0-1.0); %Eosinophils 1.4 % (0.0-10.0); %Lymphocytes 19.6 % (21.0-51.0); %Monocytes 8.2 % (0.0-10.0); %Neutrophils 68.8 % (42.0-75.0); Mean Corpuscular HGB CONC 30.9 g/dL (32.0-36.0); Mean Corpuscular Hemoglobin 24.1 pg (27.0-31.0); Mean Corpuscular Volume 78.1 fl (78.0-98.0); Mean Platelet Volume 9.9 fL (7.4-10.4); Platelet Count 438 10x3/uL (130-400); RBC Distribution Width 18.6 % (11.5-14.5); Red Blood Cell (RBC) Count 4.15 mill/uL (4.70-6.10); White Blood Cell (WBC) Count 12.4 10x3/uL (4.8-10.8)
[2022-11-05 15:27] LABS: ALT (SGPT) 11 U/L (8-55); AST (SGOT) 23 U/L (5-34); Albumin 3.8 g/dL (3.4-4.8); Alkaline Phosphatase 135 U/L (40-110); Anion Gap 13 mmol/L (10-20); BUN (Urea Nitrogen) 7 mg/dL (8.4-25.7); Bilirubin, Total 0.3 mg/dL (0.2-1.2); Calc. Creatinine Clearance 0 mL/min (70-130); Carbon Dioxide 25 mmol/L (23-31); Chloride 99 mmol/L (98-107); Estimated GFR 99; Glucose 83 mg/dL (80-115); Protein, Total 6.8 g/dL (5.8-8.1); Sodium 133 mmol/L (136-145)
[2022-11-05] MEDS ORDERED: HYDROcodone/Acetaminophen 5/325 mg Tablet ONE (16:08)
[2022-11-05] MEDS ORDERED: hydrALAZINE 25 MG TAB ONE (16:08)
[2022-11-05] MEDS ORDERED: Furosemide 40 MG/4 ML VIAL ONE (16:13)
== END 2022-11-05 16:35 | disposition home or self-care (01) ==
LOC: ERS 13:49
DX: I11.0 Hypertensive heart disease with heart failure (principal); I50.9 Heart failure, unspecified; L03.116 Cellulitis of left lower limb; L03.115 Cellulitis of right lower limb; Z79.01 Long term (current) use of anticoagulants
CPT/HCPCS: 36415; 71045; 80053; 83880; 84484; 85025; 93005; 96372; J1940

== ENCOUNTER 2022-11-18 17:09 | Inpatient (IN) | payer OTHER ==
[2022-11-18 18:34] LABS: #Basophils 0.1 thou/uL (0.0-0.2); #Eosinphils 0.3 thou/uL (0.0-0.7); #Monocytes 0.7 thou/uL (0.11-0.59); #Neutrophils 6.6 thou/uL (1.40-6.50); %Basophils 0.8 % (0.0-1.0); %Lymphocytes 20.8 % (21.0-51.0); %Neutrophils 67.9 % (42.0-75.0); Hemoglobin 9.9 g/dL (14.0-18.0); Mean Corpuscular HGB CONC 31.9 g/dL (32.0-36.0); Mean Corpuscular Hemoglobin 24.6 pg (27.0-31.0); Mean Corpuscular Volume 76.9 fl (78.0-98.0); Mean Platelet Volume 10.6 fL (7.4-10.4); Platelet Count 311 10x3/uL (130-400); RBC Distribution Width 18.6 % (11.5-14.5); Red Blood Cell (RBC) Count 4.03 mill/uL (4.70-6.10); White Blood Cell (WBC) Count 9.7 10x3/uL (4.8-10.8)
[2022-11-18 19:02] LABS: Troponin I Less than 0.010 ng/mL (< 0.028)
[2022-11-18 19:05] LABS: ALT (SGPT) 7 U/L (8-55); AST (SGOT) 20 U/L (5-34); Albumin 3.7 g/dL (3.4-4.8); Alkaline Phosphatase 125 U/L (40-110); Anion Gap 16 mmol/L (10-20); BUN (Urea Nitrogen) 10 mg/dL (8.4-25.7); Bilirubin, Total 0.3 mg/dL (0.2-1.2); Calc. Creatinine Clearance 0 mL/min (70-130); Calcium 9.3 mg/dL (7.8-10.44); Carbon Dioxide 22 mmol/L (23-31); Chloride 96 mmol/L (98-107); Estimated GFR 88; Globulin 3.6 g/dL (2.4-3.5); Glucose 87 mg/dL (80-115); Magnesium 1.5 mg/dL (1.6-2.6); Potassium 3.3 mmol/L (3.5-5.1); Protein, Total 7.3 g/dL (5.8-8.1); Sodium 131 mmol/L (136-145)
[2022-11-18 19:18] LABS: Free T4 (Free Thyroxine) 1.07 ng/dL (0.70-1.48); Thyroid Stimulating Hormone 1.7335 uIU/mL (0.35-4.94)
[2022-11-18] MEDS ORDERED: Furosemide 40 MG/4 ML VIAL ONE (19:58)
[2022-11-18] MEDS ORDERED: HYDROcodone/Acetaminophen 5/325 mg Tablet ONE (19:58)
[2022-11-18] MEDS ORDERED: Potassium Chloride 20 MEQ TAB ONE (19:58)
[2022-11-18] MEDS ORDERED: Magnesium 2 GM/50 ML BAG (IN WATER) ONE (20:06)
[2022-11-18 20:34] LABS: PTT 34.6 sec (22.9-36.1)
[2022-11-18] MEDS ORDERED: HYDROcodone/Acetaminophen 5/325 mg Tablet PO PRN (21:43)
[2022-11-18] MEDS ORDERED: Senokot S 8.6-50 MG TAB PO PRN (21:46)
[2022-11-18] MEDS ORDERED: Ondansetron ODT 4 MG TAB PO PRN (21:46)
[2022-11-19 04:30] LABS: #Basophils 0.1 thou/uL (0.0-0.2); #Eosinphils 0.3 thou/uL (0.0-0.7); #Monocytes 0.9 thou/uL (0.11-0.59); #Neutrophils 5.2 thou/uL (1.40-6.50); %Eosinophils 3.8 % (0.0-10.0); %Lymphocytes 22.8 % (21.0-51.0); %Monocytes 10.3 % (0.0-10.0); %Neutrophils 61.6 % (42.0-75.0); Hematocrit 29.5 % (42.0-52.0); Hemoglobin 9.2 g/dL (14.0-18.0); Mean Corpuscular HGB CONC 31.2 g/dL (32.0-36.0); Mean Corpuscular Hemoglobin 24.3 pg (27.0-31.0); Mean Platelet Volume 9.9 fL (7.4-10.4); Platelet Count 253 10x3/uL (130-400); RBC Distribution Width 18.5 % (11.5-14.5); Red Blood Cell (RBC) Count 3.78 mill/uL (4.70-6.10); White Blood Cell (WBC) Count 8.4 10x3/uL (4.8-10.8)
[2022-11-19 04:51] LABS: Anion Gap 14 mmol/L (10-20); BUN (Urea Nitrogen) 8 mg/dL (8.4-25.7); Calc. Creatinine Clearance 103 mL/min (70-130); Calcium 8.8 mg/dL (7.8-10.44); Carbon Dioxide 22 mmol/L (23-31); Chloride 102 mmol/L (98-107); Estimated GFR 100; Glucose 95 mg/dL (80-115); Potassium 3.2 mmol/L (3.5-5.1); Sodium 135 mmol/L (136-145)
[2022-11-19] MEDS: Furosemide 40 MG/4 ML VIAL SLOW IVP SCH ×2 (05:39→13:37)
[2022-11-19] MEDS ORDERED: Potassium Chloride 20 MEQ TAB PO SCH (08:30)
[2022-11-19] MEDS ORDERED: Metoprolol Tartrate 25 MG TAB PO SCH (09:00)
[2022-11-19] MEDS: Mometasone 200 MCG/Formoterol 5 MCG 120 PUFF INHALER INH SCH ×2 (09:03→19:32)
[2022-11-19] MEDS: Ipratropium/Albuterol 3 ML NEB NEB PRN ×4 (09:05→23:13)
[2022-11-19] MEDS: Spironolactone 100 MG TAB PO SCH (09:17)
[2022-11-19] MEDS: Amlodipine 5 MG TAB PO SCH (09:17)
[2022-11-19] MEDS: Nebivolol HCl 5 MG TAB PO SCH (09:17)
[2022-11-19] MEDS: Tamsulosin HCl 0.4 MG CAP PO SCH (09:18)
[2022-11-19] MEDS: Apixaban 5 MG TAB PO SCH ×2 (09:18→20:26)
[2022-11-19] MEDS: Albumin 25% 25 GM/100 ML BOT IVPB SCH (19:13)
[2022-11-19] MEDS: Doxycycline 100 MG CAP PO SCH (20:26)
[2022-11-19] MEDS: Acetaminophen 325 MG TAB PO PRN (20:26)
[2022-11-20] MEDS: Albumin 25% 25 GM/100 ML BOT IVPB SCH ×3 (00:08→11:54)
[2022-11-20] MEDS: Acetaminophen 325 MG TAB PO PRN ×2 (05:33→11:54)
[2022-11-20 07:03] LABS: Anion Gap 12 mmol/L (10-20); BUN (Urea Nitrogen) 10 mg/dL (8.4-25.7); Calc. Creatinine Clearance 113 mL/min (70-130); Calcium 8.8 mg/dL (7.8-10.44); Carbon Dioxide 25 mmol/L (23-31); Chloride 101 mmol/L (98-107); Estimated GFR 102; Glucose 87 mg/dL (80-115); Potassium 3.5 mmol/L (3.5-5.1); Sodium 134 mmol/L (136-145)
[2022-11-20] MEDS: Mometasone 200 MCG/Formoterol 5 MCG 120 PUFF INHALER INH SCH ×2 (07:30→19:22)
[2022-11-20] MEDS: Tamsulosin HCl 0.4 MG CAP PO SCH (07:50)
[2022-11-20] MEDS: Doxycycline 100 MG CAP PO SCH ×2 (07:50→19:51)
[2022-11-20] MEDS: Spironolactone 100 MG TAB PO SCH (07:50)
[2022-11-20] MEDS: Nebivolol HCl 5 MG TAB PO SCH (07:50)
[2022-11-20] MEDS: Apixaban 5 MG TAB PO SCH ×2 (07:51→19:51)
[2022-11-20] MEDS: Ipratropium/Albuterol 3 ML NEB NEB PRN ×4 (08:54→23:26)
[2022-11-20] MEDS: Amlodipine 5 MG TAB PO SCH (10:34)
[2022-11-20] MEDS: HYDROcodone/Acetaminophen 5/325 mg Tablet PO PRN (12:48)
[2022-11-20] MEDS: methylPREDNISolone Sod Succ 40 MG VIAL IVP SCH (17:09)
[2022-11-20] MEDS: Mupirocin 2% Ointment 22 GM Tube TOP SCH (19:51)
[2022-11-21] MEDS: methylPREDNISolone Sod Succ 40 MG VIAL IVP SCH ×2 (05:28→16:15)
[2022-11-21] MEDS: Mometasone 200 MCG/Formoterol 5 MCG 120 PUFF INHALER INH SCH ×2 (07:21→18:50)
[2022-11-21] MEDS: Ipratropium/Albuterol 3 ML NEB NEB PRN ×4 (07:24→23:34)
[2022-11-21] MEDS: Nebivolol HCl 5 MG TAB PO SCH (09:30)
[2022-11-21] MEDS: Apixaban 5 MG TAB PO SCH ×2 (09:30→20:30)
[2022-11-21] MEDS: Tamsulosin HCl 0.4 MG CAP PO SCH (09:30)
[2022-11-21] MEDS: Doxycycline 100 MG CAP PO SCH ×2 (09:30→20:30)
[2022-11-21] MEDS: Spironolactone 100 MG TAB PO SCH (09:30)
[2022-11-21] MEDS: HYDROcodone/Acetaminophen 5/325 mg Tablet PO PRN ×2 (09:31→20:31)
[2022-11-21] MEDS: Mupirocin 2% Ointment 22 GM Tube TOP SCH ×3 (10:25→20:30)
[2022-11-22] MEDS: methylPREDNISolone Sod Succ 40 MG VIAL IVP SCH (05:03)
[2022-11-22] MEDS: HYDROcodone/Acetaminophen 5/325 mg Tablet PO PRN (05:23)
[2022-11-22] MEDS: Mometasone 200 MCG/Formoterol 5 MCG 120 PUFF INHALER INH SCH (07:16)
[2022-11-22] MEDS: Ipratropium/Albuterol 3 ML NEB NEB PRN (07:16)
[2022-11-22] MEDS: Nebivolol HCl 5 MG TAB PO SCH (08:26)
[2022-11-22] MEDS: Doxycycline 100 MG CAP PO SCH (08:26)
[2022-11-22] MEDS: Tamsulosin HCl 0.4 MG CAP PO SCH (08:26)
[2022-11-22] MEDS: Spironolactone 100 MG TAB PO SCH (08:26)
[2022-11-22] MEDS: Mupirocin 2% Ointment 22 GM Tube TOP SCH (08:26)
[2022-11-22] MEDS: Apixaban 5 MG TAB PO SCH (08:26)
[2022-11-22 08:33] VITALS: BP 105/62; TEMP 97.8; BMI 24.5
== END 2022-11-22 10:08 | disposition home or self-care (01) | DRG 291 ==
LOC: ERS 17:09 → 2SW 21:14
PROVIDERS: ADMIT Student in an Organized Health Care Education/Training Program; ATTEND Internal Medicine
DX: I11.0 Hypertensive heart disease with heart failure (principal); I50.33 Acute on chronic diastolic (congestive) heart failure; J96.20 Acute and chronic respiratory failure, unspecified whether with hypoxia or hypercapnia; E87.1 Hypo-osmolality and hyponatremia; L03.116 Cellulitis of left lower limb; L03.115 Cellulitis of right lower limb; J44.1 Chronic obstructive pulmonary disease with (acute) exacerbation; I48.0 Paroxysmal atrial fibrillation; E87.6 Hypokalemia; E83.42 Hypomagnesemia; D64.9 Anemia, unspecified; K70.31 Alcoholic cirrhosis of liver with ascites; K42.9 Umbilical hernia without obstruction or gangrene; Z88.6 Allergy status to analgesic agent; Z88.1 Allergy status to other antibiotic agents; Z79.899 Other long term (current) drug therapy; Z79.01 Long term (current) use of anticoagulants; Z87.891 Personal history of nicotine dependence; Z98.890 Other specified postprocedural states
CPT/HCPCS: 36415; 80048; 80053; 83735; 83880; 84439; 84443; 84484; 85025; 85610; 85730; 93005; 94640; 96365; 96375; J1940; J2920; J3475; J7620; P9047; Q0162

== ENCOUNTER 2023-03-29 10:44 | Emergency (ER) | payer OTHER ==
[2023-03-29 11:26] LABS: #Basophils 0.1 thou/uL (0.0-0.2); #Eosinphils 0.8 thou/uL (0.0-0.7); #Monocytes 0.6 thou/uL (0.11-0.59); #Neutrophils 3.8 thou/uL (1.40-6.50); %Basophils 1.4 % (0.0-1.0); %Eosinophils 10.4 % (0.0-10.0); %Lymphocytes 30.1 % (21.0-51.0); %Monocytes 8.3 % (0.0-10.0); %Neutrophils 49.5 % (42.0-75.0); Hematocrit 31.9 % (42.0-52.0); Hemoglobin 9.9 g/dL (14.0-18.0); Mean Corpuscular Hemoglobin 22.3 pg (27.0-31.0); Mean Platelet Volume 10.8 fL (7.4-10.4); Platelet Count 272 10x3/uL (130-400); RBC Distribution Width 19.8 % (11.5-14.5); Red Blood Cell (RBC) Count 4.43 mill/uL (4.70-6.10); White Blood Cell (WBC) Count 7.7 10x3/uL (4.8-10.8)
[2023-03-29] MEDS ORDERED: Dexamethasone 10 MG/ML VIAL ONE (11:28)
[2023-03-29] MEDS ORDERED: Magnesium 2 GM/50 ML BAG (IN WATER) ONE (11:28)
[2023-03-29] MEDS ORDERED: Albuterol 2.5 MG/0.5 ML NEB ONE (11:34)
[2023-03-29] MEDS ORDERED: Ipratropium/Albuterol 3 ML NEB ONE (11:34)
[2023-03-29 11:48] LABS: Anisocytosis SLIGHT = 6-15 cells (100X) (0-5/hpf); Microcytosis SLIGHT = 6-15 cells (100X) (0-5/hpf); Poikilocytosis SLIGHT = 6-15 cells (100X) (0-5/hpf)
[2023-03-29 11:49] LABS: ALT (SGPT) 20 U/L (8-55); AST (SGOT) 36 U/L (5-34); Albumin 3.9 g/dL (3.4-4.8); Alkaline Phosphatase 157 U/L (40-110); Anion Gap 14 mmol/L (10-20); BUN (Urea Nitrogen) 11 mg/dL (8.4-25.7); Bilirubin, Total 0.3 mg/dL (0.2-1.2); Calc. Creatinine Clearance 0 mL/min (70-130); Carbon Dioxide 22 mmol/L (23-31); Chloride 99 mmol/L (98-107); Estimated GFR 92; Globulin 3.4 g/dL (2.4-3.5); Glucose 83 mg/dL (80-115); Hypochromia SLIGHT = 6-15 cells (100X) (0-5/hpf); Lipase 41 U/L (8-78); Potassium 4.3 mmol/L (3.5-5.1); Protein, Total 7.3 g/dL (5.8-8.1); Sodium 131 mmol/L (136-145)
[2023-03-29 11:50] LABS: Elliptocytes SLIGHT = 2-5 cells (100X) (0-1/hpf)
[2023-03-29 11:51] LABS: Troponin I Less than 0.010 ng/mL (< 0.028)
== END 2023-03-29 12:10 | disposition home or self-care (01) ==
LOC: ERS 10:44
DX: J44.1 Chronic obstructive pulmonary disease with (acute) exacerbation (principal); I50.9 Heart failure, unspecified; I11.0 Hypertensive heart disease with heart failure; Z86.718 Personal history of other venous thrombosis and embolism; Z86.711 Personal history of pulmonary embolism; I25.10 Atherosclerotic heart disease of native coronary artery without angina pectoris; Z79.899 Other long term (current) drug therapy; Z79.01 Long term (current) use of anticoagulants
CPT/HCPCS: 36415; 71045; 80053; 83690; 83880; 84484; 85025; 93005; 94640; 96372; J1100; J3475; J7611; J7620

== ENCOUNTER 2023-04-09 09:19 | Emergency (ER) | payer OTHER ==
[~2023-04-09 09:19] MED LIST changes: -Iopamidol-370 76% 500 ML 1 ML ONE; +Iopamidol-370 76% 500 ML MDV (1 ML CHARGE) ONE
[2023-04-09 09:54] LABS: #Basophils 0.1 thou/uL (0.0-0.2); #Eosinphils 0.3 thou/uL (0.0-0.7); #Neutrophils 9.7 thou/uL (1.40-6.50); %Basophils 0.4 % (0.0-1.0); %Eosinophils 1.8 % (0.0-10.0); %Lymphocytes 20.5 % (21.0-51.0); %Monocytes 6.8 % (0.0-10.0); %Neutrophils 69.9 % (42.0-75.0); Hematocrit 35.8 % (42.0-52.0); Hemoglobin 11.3 g/dL (14.0-18.0); Mean Corpuscular HGB CONC 31.6 g/dL (32.0-36.0); Mean Corpuscular Hemoglobin 22.4 pg (27.0-31.0); Platelet Count 344 10x3/uL (130-400); RBC Distribution Width 21.9 % (11.5-14.5); Red Blood Cell (RBC) Count 5.04 mill/uL (4.70-6.10); White Blood Cell (WBC) Count 13.9 10x3/uL (4.8-10.8)
[2023-04-09 10:18] LABS: ALT (SGPT) 40 U/L (8-55); AST (SGOT) 32 U/L (5-34); Albumin 4.3 g/dL (3.4-4.8); Alkaline Phosphatase 166 U/L (40-110); Anion Gap 14 mmol/L (10-20); BUN (Urea Nitrogen) 12 mg/dL (8.4-25.7); Bilirubin, Total 0.4 mg/dL (0.2-1.2); Calc. Creatinine Clearance 0 mL/min (70-130); Calcium 9.4 mg/dL (7.8-10.44); Carbon Dioxide 24 mmol/L (23-31); Chloride 101 mmol/L (98-107); Estimated GFR 99; Globulin 3.5 g/dL (2.4-3.5); Glucose 87 mg/dL (80-115); Potassium 4.2 mmol/L (3.5-5.1); Protein, Total 7.8 g/dL (5.8-8.1); Sodium 135 mmol/L (136-145)
[2023-04-09 10:22] LABS: Troponin I Less than 0.010 ng/mL (< 0.028)
[2023-04-09] MEDS ORDERED: methylPREDNISolone Sod Succ/PF 125 MG/2 ML VIAL ONE (10:40)
[2023-04-09 10:49] LABS: Hypochromia SLIGHT = 6-15 cells (100X) (0-5/hpf); Microcytosis SLIGHT = 6-15 cells (100X) (0-5/hpf); Platelet Adequacy Comment Platelets Normal; Polychromasia SLIGHT = 2-3 cells (100X) (0-2/hpf)
[2023-04-09] MEDS ORDERED: Ipratropium/Albuterol 3 ML NEB ONE (10:57)
[2023-04-09 12:56] LABS: Bacteria/HPF None Seen HPF (None Seen); Bilirubin Negative (Negative); Blood, Urine Negative (Negative); CAUTI Indications for Culture Pelvic or flank pain; Clarity Clear (Clear); Glucose, Urine (Dipstick) Normal (Negative); Ketone, Urine Negative (Negative); Leukocyte Negative Leu/uL (Negative); Nitrite Negative (Negative); Protein, Urine (Dipstick) Negative (Neg-Trace); RBC/HPF None Seen HPF (0-3); Specific Gravity, Urine 1.017 (1.002-1.036); Squamous Epithelial None Seen HPF (0-3); Urobilinogen Normal mg/dL (Less than 2); WBC/HPF None Seen HPF (0-3)
[2023-04-09 13:07] LABS: Urine Culture Reflex No No
== END 2023-04-09 13:28 | disposition home or self-care (01) ==
LOC: ERS 09:19
DX: J44.1 Chronic obstructive pulmonary disease with (acute) exacerbation (principal); I11.0 Hypertensive heart disease with heart failure; I50.9 Heart failure, unspecified; J45.909 Unspecified asthma, uncomplicated; F17.210 Nicotine dependence, cigarettes, uncomplicated; Z79.899 Other long term (current) drug therapy; Z79.51 Long term (current) use of inhaled steroids
CPT/HCPCS: 71045; 74177; 80053; 81001; 83880; 84484; 85025; 85379; 93005; 94640; 96374; J2930; J7620; Q9967

== ENCOUNTER 2023-05-17 07:18 | Observation (INO) | payer OTHER ==
[2023-05-17 07:42] LABS: #Basophils 0.1 thou/uL (0.0-0.2); #Eosinphils 0.4 thou/uL (0.0-0.7); #Monocytes 0.7 thou/uL (0.11-0.59); #Neutrophils 4.2 thou/uL (1.40-6.50); %Basophils 1.6 % (0.0-1.0); %Eosinophils 4.7 % (0.0-10.0); %Lymphocytes 32.7 % (21.0-51.0); %Monocytes 8.3 % (0.0-10.0); %Neutrophils 52.3 % (42.0-75.0); Hematocrit 30.4 % (42.0-52.0); Hemoglobin 9.9 g/dL (14.0-18.0); Mean Corpuscular HGB CONC 32.6 g/dL (32.0-36.0); Mean Corpuscular Volume 73.6 fl (78.0-98.0); Mean Platelet Volume 10.2 fL (7.4-10.4); Platelet Count 293 10x3/uL (130-400); RBC Distribution Width 21.2 % (11.5-14.5); Red Blood Cell (RBC) Count 4.13 mill/uL (4.70-6.10); White Blood Cell (WBC) Count 8.1 10x3/uL (4.8-10.8)
[2023-05-17] MEDS ORDERED: Furosemide 40 MG (4 mL) VIAL ONE (07:47)
[2023-05-17] MEDS ORDERED: methylPREDNISolone Sod Succ/PF 125 MG/2 ML VIAL ONE (07:48)
[2023-05-17] MEDS ORDERED: Ipratropium/Albuterol 3 ML NEB ONE ×2 (07:48→08:31)
[2023-05-17] MEDS ORDERED: Ondansetron PF 4 MG/2 ML Vial ONE (07:48)
[2023-05-17 08:01] LABS: Hypochromia SLIGHT = 6-15 cells (100X) (0-5/hpf); Microcytosis SLIGHT = 6-15 cells (100X) (0-5/hpf); Polychromasia SLIGHT = 2-3 cells (100X) (0-2/hpf)
[2023-05-17 08:04] LABS: Actual Bicarbonate (HCO3v) 23.8 mEq/L (22-28); Base Excess 0.8 mEq/L (-2.0 to +3.0); Calcium, Ionized (venous) 1.03 mmol/L (1.16-1.32); Chloride (VBG) 99 mmol/L (98-106); Hematocrit-VBG 33 % (42.0-52.0); Hemoglobin (Hb) 11.1 g/dL (13.1-17.2); Potassium (VBG) 4.19 mmol/L (3.70-5.30); Sodium 132 mmol/L (133-146); pH (venous) 7.483 (7.32-7.43)
[2023-05-17 08:05] LABS: ALT (SGPT) 16 U/L (8-55); AST (SGOT) 25 U/L (5-34); Albumin 3.7 g/dL (3.4-4.8); Alkaline Phosphatase 207 U/L (40-110); Anion Gap 14 mmol/L (10-20); BUN (Urea Nitrogen) 14 mg/dL (8.4-25.7); Bilirubin, Total 0.4 mg/dL (0.2-1.2); Calc. Creatinine Clearance 0 mL/min (70-130); Calcium 9.1 mg/dL (7.8-10.44); Carbon Dioxide 24 mmol/L (23-31); Chloride 99 mmol/L (98-107); Estimated GFR 91; Globulin 3.6 g/dL (2.4-3.5); Glucose 80 mg/dL (80-115); Potassium 4.1 mmol/L (3.5-5.1); Protein, Total 7.3 g/dL (5.8-8.1); Sodium 133 mmol/L (136-145)
[2023-05-17 08:09] LABS: Troponin I Less than 0.010 ng/mL (< 0.028)
[2023-05-17] MEDS ORDERED: Magnesium 2 GM/50 ML BAG (IN WATER) ONE (08:15)
[2023-05-17 08:16] LABS: INR-International Normal Ratio 1.2; PTT 32.5 sec (22.9-36.1); Prothrombin Time 15.6 sec (12.0-14.7)
[2023-05-17 10:22] LABS: SARS-CoV-2 NAA Rapid Test Not Detected (NotDetected)
[2023-05-17] MEDS ORDERED: LevoFLOXacin 750 mg/D5W 150 ml Premix Bag ONE (10:27)
[2023-05-17] MEDS ORDERED: Albuterol 200 PUFF (6.7GM INHALER) INH PRN (11:18)
[2023-05-17] MEDS ORDERED: Ondansetron ODT 4 MG TAB PO PRN (11:21)
[2023-05-17] MEDS ORDERED: Bisacodyl 10 MG SUPP PR PRN (11:21)
[2023-05-17] MEDS ORDERED: Senokot S 8.6-50 MG TAB PO PRN (11:21)
[2023-05-17] MEDS ORDERED: Acetaminophen 325 MG TAB PO PRN (11:21)
[2023-05-17] MEDS ORDERED: Ondansetron PF 4 MG/2 ML Vial IVP PRN (11:21)
[2023-05-17] MEDS: Ipratropium/Albuterol 3 ML NEB NEB SCH (13:30)
[2023-05-17] MEDS ORDERED: Metoprolol Tartrate 25 MG TAB ONE (15:56)
[2023-05-17] MEDS ORDERED: Gabapentin 100 MG CAP ONE (15:57)
[2023-05-17] MEDS: Metoprolol Tartrate 25 MG TAB PO SCH ×2 (16:00→20:32)
[2023-05-17] MEDS: Gabapentin 100 MG CAP PO SCH (16:00)
[2023-05-17 16:37] LABS: Troponin I Less than 0.010 ng/mL (< 0.028)
[2023-05-17] MEDS: Ipratropium Bromide 2.5 ml Neb NEB SCH (19:04)
[2023-05-17] MEDS: Mometasone 200 MCG/Formoterol 5 MCG 120 PUFF INHALER INH SCH (19:06)
[2023-05-17 19:15] VITALS: BMI 21.5
[2023-05-17 21:12] LABS: Troponin I Less than 0.010 ng/mL (< 0.028)
[2023-05-17] MEDS: HYDROcodone/Acetaminophen 7.5/325 mg Tablet PO PRN (22:15)
[2023-05-17] MEDS: Melatonin 3 MG TAB PO SCH (22:16)
[2023-05-18 05:05] LABS: #Monocytes 0.1 thou/uL (0.11-0.59); #Neutrophils 4.5 thou/uL (1.40-6.50); %Basophils 0.2 % (0.0-1.0); %Lymphocytes 16.8 % (21.0-51.0); %Monocytes 2.1 % (0.0-10.0); %Neutrophils 80.2 % (42.0-75.0); Hematocrit 31.5 % (42.0-52.0); Hemoglobin 9.8 g/dL (14.0-18.0); Mean Corpuscular HGB CONC 31.1 g/dL (32.0-36.0); Mean Corpuscular Hemoglobin 23.3 pg (27.0-31.0); Mean Corpuscular Volume 74.8 fl (78.0-98.0); Mean Platelet Volume 10.7 fL (7.4-10.4); Platelet Count 250 10x3/uL (130-400); RBC Distribution Width 21.2 % (11.5-14.5); Red Blood Cell (RBC) Count 4.21 mill/uL (4.70-6.10); White Blood Cell (WBC) Count 5.6 10x3/uL (4.8-10.8)
[2023-05-18 05:29] LABS: ALT (SGPT) 18 U/L (8-55); AST (SGOT) 25 U/L (5-34); Albumin 3.5 g/dL (3.4-4.8); Alkaline Phosphatase 182 U/L (40-110); Anion Gap 13 mmol/L (10-20); BUN (Urea Nitrogen) 15 mg/dL (8.4-25.7); Bilirubin, Total 0.2 mg/dL (0.2-1.2); Calc. Creatinine Clearance 103 mL/min (70-130); Calcium 8.7 mg/dL (7.8-10.44); Carbon Dioxide 21 mmol/L (23-31); Chloride 101 mmol/L (98-107); Estimated GFR 101; Globulin 3.5 g/dL (2.4-3.5); Glucose 134 mg/dL (80-115); Potassium 4.4 mmol/L (3.5-5.1); Sodium 131 mmol/L (136-145)
[2023-05-18] MEDS: Furosemide 40 MG (4 mL) VIAL SLOW IVP SCH (05:49)
[2023-05-18] MEDS: methylPREDNISolone Sod Succ 40 MG VIAL IVP SCH (05:49)
[2023-05-18] MEDS ORDERED: Spironolactone 100 MG TAB PO SCH (08:00)
[2023-05-18] MEDS: Spironolactone 100 MG TAB PO SCH (09:30)
[2023-05-18] MEDS: Amlodipine 10 MG TAB PO SCH (09:30)
[2023-05-18] MEDS: Apixaban 5 MG TAB PO SCH (09:32)
[2023-05-18] MEDS: Gabapentin 300 MG CAP PO SCH (09:32)
[2023-05-18] MEDS: Nebivolol HCl 5 MG TAB PO SCH (09:33)
[2023-05-18] MEDS ORDERED: LevoFLOXacin 750 mg/D5W 750 MG in Premix 1 BAG IVPB SCH (11:00)
[2023-05-19 07:35] VITALS: BP 108/61; TEMP 98.6
[2023-05-19 08:49] LABS: #Monocytes 0.2 thou/uL (0.11-0.59); #Neutrophils 6.3 thou/uL (1.40-6.50); %Lymphocytes 9.8 % (21.0-51.0); %Monocytes 2.6 % (0.0-10.0); Hematocrit 33.3 % (42.0-52.0); Hemoglobin 10.4 g/dL (14.0-18.0); Mean Corpuscular HGB CONC 31.2 g/dL (32.0-36.0); Mean Corpuscular Hemoglobin 24.1 pg (27.0-31.0); Mean Corpuscular Volume 77.1 fl (78.0-98.0); Mean Platelet Volume 10.5 fL (7.4-10.4); Platelet Count 288 10x3/uL (130-400); RBC Distribution Width 21.9 % (11.5-14.5); Red Blood Cell (RBC) Count 4.32 mill/uL (4.70-6.10); White Blood Cell (WBC) Count 7.3 10x3/uL (4.8-10.8)
[2023-05-19 09:37] LABS: Anion Gap 13 mmol/L (10-20); BUN (Urea Nitrogen) 23 mg/dL (8.4-25.7); Calc. Creatinine Clearance 90 mL/min (70-130); Calcium 9.1 mg/dL (7.8-10.44); Carbon Dioxide 23 mmol/L (23-31); Chloride 99 mmol/L (98-107); Estimated GFR 97; Glucose 126 mg/dL (80-115); Potassium 4.8 mmol/L (3.5-5.1); Sodium 130 mmol/L (136-145)
== END 2023-05-19 07:42 | disposition home or self-care (01) ==
LOC: ERS 07:18 → ERHOLD 10:30 → 2SW 18:23
PROVIDERS: ADMIT Internal Medicine; ATTEND Hospitalist
DX: J96.21 Acute and chronic respiratory failure with hypoxia (principal); I11.0 Hypertensive heart disease with heart failure; I50.22 Chronic systolic (congestive) heart failure; I48.0 Paroxysmal atrial fibrillation; J44.1 Chronic obstructive pulmonary disease with (acute) exacerbation; D63.8 Anemia in other chronic diseases classified elsewhere; K70.30 Alcoholic cirrhosis of liver without ascites; Z88.1 Allergy status to other antibiotic agents; Z88.6 Allergy status to analgesic agent; Z79.899 Other long term (current) drug therapy; Z87.891 Personal history of nicotine dependence
CPT/HCPCS: 36415; 36416; 71045; 80048; 80053; 82805; 83605; 83880; 84484; 85025; 85610; 85730; 87040; 93005; 94640; 94760; 96374; 96375; 96376; G0378; J1940; J1956; J2405; J2920; J2930; J3475; J7620

== ENCOUNTER 2023-05-24 08:52 | Inpatient (IN) | payer OTHER ==
[2023-05-24 09:33] LABS: #Monocytes 0.4 thou/uL (0.11-0.59); #Neutrophils 13.3 thou/uL (1.40-6.50); %Basophils 0.1 % (0.0-1.0); %Lymphocytes 3.3 % (21.0-51.0); %Monocytes 2.9 % (0.0-10.0); %Neutrophils 93.1 % (42.0-75.0); Hematocrit 37.9 % (42.0-52.0); Hemoglobin 12.3 g/dL (14.0-18.0); Mean Corpuscular HGB CONC 32.5 g/dL (32.0-36.0); Mean Corpuscular Hemoglobin 24.6 pg (27.0-31.0); Mean Corpuscular Volume 75.6 fl (78.0-98.0); Mean Platelet Volume 10.3 fL (7.4-10.4); Platelet Count 354 10x3/uL (130-400); RBC Distribution Width 21.7 % (11.5-14.5); Red Blood Cell (RBC) Count 5.01 mill/uL (4.70-6.10); White Blood Cell (WBC) Count 14.3 10x3/uL (4.8-10.8)
[2023-05-24] MEDS ORDERED: Albuterol 2.5 MG (0.5 mL) NEB ONE ×2 (09:41→11:46)
[2023-05-24] MEDS ORDERED: Ipratropium/Albuterol 3 ML NEB ONE ×2 (09:41→11:46)
[2023-05-24 09:44] LABS: Prothrombin Time 13.4 sec (12.0-14.7)
[2023-05-24 09:45] LABS: PTT 28.5 sec (22.9-36.1)
[2023-05-24] MEDS ORDERED: Furosemide 40 MG (4 mL) VIAL ONE (09:53)
[2023-05-24] MEDS ORDERED: Sodium Chloride 0.9% 100 ML ONE (09:53)
[2023-05-24] MEDS ORDERED: methylPREDNISolone Sod Succ 40 MG VIAL ONE (09:53)
[2023-05-24] MEDS ORDERED: Azithromycin 500 MG VIAL ONE (09:53)
[2023-05-24 10:01] LABS: ALT (SGPT) 40 U/L (8-55); AST (SGOT) 42 U/L (5-34); Albumin 4.7 g/dL (3.4-4.8); Alkaline Phosphatase 185 U/L (40-110); Anion Gap 17 mmol/L (10-20); BUN (Urea Nitrogen) 18 mg/dL (8.4-25.7); Bilirubin, Total 0.4 mg/dL (0.2-1.2); Calc. Creatinine Clearance 0 mL/min (70-130); Calcium 9.7 mg/dL (7.8-10.44); Carbon Dioxide 26 mmol/L (23-31); Chloride 98 mmol/L (98-107); Estimated GFR 92; Globulin 3.9 g/dL (2.4-3.5); Glucose 136 mg/dL (80-115); Potassium 4.1 mmol/L (3.5-5.1); Protein, Total 8.6 g/dL (5.8-8.1); Sodium 137 mmol/L (136-145)
[2023-05-24 10:05] LABS: Troponin I Less than 0.010 ng/mL (< 0.028)
[2023-05-24] MEDS ORDERED: methylPREDNISolone Sod Succ/PF 125 MG/2 ML VIAL ONE (10:05)
[2023-05-24] MEDS ORDERED: Vancomycin 1 GM/200 ML (FROZEN) BAG ONE (11:43)
[2023-05-24] MEDS ORDERED: Cefepime 2 GM VIAL ONE (11:43)
[2023-05-24 11:47] LABS: SARS-CoV-2 NAA Rapid Test Not Detected (NotDetected)
[2023-05-24 12:04] LABS: Bacteria/HPF None Seen HPF (None Seen); Bilirubin Negative (Negative); Blood, Urine Negative (Negative); CAUTI Indications for Culture Immunosuppressed; Clarity Clear (Clear); Glucose, Urine (Dipstick) Normal (Negative); Ketone, Urine Negative (Negative); Leukocyte Negative Leu/uL (Negative); Nitrite Negative (Negative); Protein, Urine (Dipstick) Negative (Neg-Trace); RBC/HPF None Seen HPF (0-3); Specific Gravity, Urine 1.016 (1.002-1.036); Squamous Epithelial None Seen HPF (0-3); Urobilinogen Normal mg/dL (Less than 2); WBC/HPF None Seen HPF (0-3); pH, Urine 6.5 (5.0-9.0)
[2023-05-24 12:09] LABS: Urine Culture Reflex Yes Yes
[2023-05-24] MEDS ORDERED: Acetaminophen 325 MG TAB PO PRN (12:09)
[2023-05-24] MEDS ORDERED: Ondansetron PF 4 MG/2 ML Vial IVP PRN (12:09)
[2023-05-24] MEDS ORDERED: Ipratropium/Albuterol 3 ML NEB NEB PRN (12:09)
[2023-05-24 13:38] LABS: Hemoglobin A1c 5.3 % (4.0-6.0)
[2023-05-24 14:08] LABS: Critical Call Chem-Lactate NUR.LRH@1408; Lactic Acid 9.1 mmol/L (0.5-2.2)
[2023-05-24 14:37] VITALS: BMI 22.4
[2023-05-24] MEDS ORDERED: Iopamidol-370 76% 500 ML MDV (1 ML CHARGE) ONE (15:21)
[2023-05-24 16:00] LABS: Bacteria/HPF None Seen HPF (None Seen); Bilirubin Negative (Negative); Blood, Urine Negative (Negative); CAUTI Indications for Culture Pelvic or flank pain; Clarity Clear (Clear); Glucose, Urine (Dipstick) Normal (Negative); Ketone, Urine Negative (Negative); Leukocyte Negative Leu/uL (Negative); Nitrite Negative (Negative); Protein, Urine (Dipstick) Negative (Neg-Trace); RBC/HPF None Seen HPF (0-3); Specific Gravity, Urine 1.024 (1.002-1.036); Squamous Epithelial None Seen HPF (0-3); Urobilinogen Normal mg/dL (Less than 2); WBC/HPF 0-3 HPF (0-3); pH, Urine 6.5 (5.0-9.0)
[2023-05-24 16:06] LABS: Urine Culture Reflex No No
[2023-05-24 16:12] LABS: Legionella Urinary Ag Negative (Negative); Strep pneumo Urine Ag NEGATIVE (NEGATIVE)
[2023-05-24] MEDS: Ipratropium/Albuterol 3 ML NEB NEB SCH (16:47)
[2023-05-24] MEDS: methylPREDNISolone Sod Succ 40 MG VIAL IVP SCH (18:25)
[2023-05-24] MEDS: Metoprolol Tartrate 25 MG TAB PO SCH (19:56)
[2023-05-24] MEDS: Apixaban 5 MG TAB PO SCH (19:56)
[2023-05-24] MEDS: Famotidine/PF 20 mg/2ml Vial SLOW IVP SCH (19:57)
[2023-05-24] MEDS: Cefepime 2 GM in Sodium Chloride 0.9% 100 ML IVPB SCH (19:57)
[2023-05-24] MEDS ORDERED: Vancomycin 1 GM in Sodium Chloride 0.9% 250 ML 250 ML IVPB SCH (21:00)
[2023-05-24] MEDS: Vancomycin 1 GM in Premix 1 BAG IVPB SCH (23:31)
[2023-05-25 06:31] LABS: #Monocytes 0.2 thou/uL (0.11-0.59); #Neutrophils 6.4 thou/uL (1.40-6.50); %Lymphocytes 6.7 % (21.0-51.0); %Monocytes 2.7 % (0.0-10.0); %Neutrophils 89.3 % (42.0-75.0); Hematocrit 31.4 % (42.0-52.0); Hemoglobin 9.8 g/dL (14.0-18.0); Mean Corpuscular HGB CONC 31.2 g/dL (32.0-36.0); Mean Corpuscular Hemoglobin 23.7 pg (27.0-31.0); Mean Platelet Volume 10.7 fL (7.4-10.4); Platelet Count 279 10x3/uL (130-400); RBC Distribution Width 21.7 % (11.5-14.5); Red Blood Cell (RBC) Count 4.13 mill/uL (4.70-6.10); White Blood Cell (WBC) Count 7.2 10x3/uL (4.8-10.8)
[2023-05-25 07:09] LABS: ALT (SGPT) 33 U/L (8-55); AST (SGOT) 27 U/L (5-34); Albumin 3.7 g/dL (3.4-4.8); Alkaline Phosphatase 146 U/L (40-110); Anion Gap 11 mmol/L (10-20); BUN (Urea Nitrogen) 15 mg/dL (8.4-25.7); Bilirubin, Direct 0.1 mg/dL (0.1-0.3); Bilirubin, Total 0.2 mg/dL (0.2-1.2); Calc. Creatinine Clearance 123 mL/min (70-130); Calcium 8.8 mg/dL (7.8-10.44); Carbon Dioxide 25 mmol/L (23-31); Chloride 100 mmol/L (98-107); Estimated GFR 105; Glucose 130 mg/dL (80-115); Iron Binding Capacity, Total 379 mcg/dL (261-462); Magnesium 2.1 mg/dL (1.6-2.6); Potassium 3.8 mmol/L (3.5-5.1); Protein, Total 6.6 g/dL (5.8-8.1); Sodium 132 mmol/L (136-145)
[2023-05-25 07:10] LABS: Iron Binding Capacity, Total 381 mcg/dL (261-462)
[2023-05-25] MEDS: Azithromycin 250 MG TAB PO SCH (08:12)
[2023-05-25 08:44] LABS: Iron 20 ug/dL (65-175); Iron 21 ug/dL (65-175)
[2023-05-25 09:00] LABS: Lactic Acid 3.3 mmol/L (0.5-2.2)
[2023-05-25] MEDS: Mometasone 100 MCG/Formoterol 5 MCG 120 PUFF INHALER INH SCH ×2 (11:08→19:05)
[2023-05-25] MEDS: Guaifenesin DM 100-10/5 ML UDCUP PO PRN (11:12)
[2023-05-25] MEDS ORDERED: hydrOXYzine 25 MG TAB PO PRN (11:51)
[2023-05-25] MEDS: Melatonin 3 MG TAB PO PRN (19:51)
[2023-05-25] MEDS: Furosemide 40 MG TAB PO SCH (19:52)
[2023-05-25] MEDS: Doxycycline 100 MG CAP PO SCH (19:52)
[2023-05-25] MEDS: Famotidine 20 MG TAB PO SCH (19:52)
[2023-05-26 04:56] LABS: #Monocytes 0.4 thou/uL (0.11-0.59); #Neutrophils 8.5 thou/uL (1.40-6.50); %Basophils 0.1 % (0.0-1.0); %Lymphocytes 5.2 % (21.0-51.0); %Monocytes 4.4 % (0.0-10.0); Hemoglobin 9.1 g/dL (14.0-18.0); Mean Corpuscular HGB CONC 31.4 g/dL (32.0-36.0); Mean Corpuscular Hemoglobin 24.2 pg (27.0-31.0); Mean Corpuscular Volume 77.1 fl (78.0-98.0); Mean Platelet Volume 10.6 fL (7.4-10.4); Platelet Count 268 10x3/uL (130-400); RBC Distribution Width 21.8 % (11.5-14.5); Red Blood Cell (RBC) Count 3.76 mill/uL (4.70-6.10); White Blood Cell (WBC) Count 9.6 10x3/uL (4.8-10.8)
[2023-05-26 05:20] LABS: Anion Gap 12 mmol/L (10-20); BUN (Urea Nitrogen) 24 mg/dL (8.4-25.7); Calc. Creatinine Clearance 110 mL/min (70-130); Calcium 8.4 mg/dL (7.8-10.44); Carbon Dioxide 25 mmol/L (23-31); Chloride 101 mmol/L (98-107); Estimated GFR 102; Glucose 121 mg/dL (80-115); Magnesium 2.3 mg/dL (1.6-2.6); Sodium 134 mmol/L (136-145)
[2023-05-26] MEDS: Nebivolol HCl 5 MG TAB PO SCH (08:00)
[2023-05-26] MEDS: Ferrous Sulfate 325 MG TAB PO SCH (08:00)
[2023-05-26] MEDS: Spironolactone 100 MG TAB PO SCH (08:00)
[2023-05-26] MEDS: Potassium Chloride 20 MEQ TAB PO SCH (08:00)
[2023-05-26 10:11] VITALS: BP 142/77; TEMP 98
[2023-05-27] MEDS ORDERED: FLU VACC QS2023-24(6MOS UP)/PF 60 MCG/0.5 ML SYRINGE IM ONE (15:00)
[2023-05-27 21:36] LABS: Mycoplasma pneumoniae IgG AB 439 U/mL (0-99); Mycoplasma pneumoniae IgM AB Less than 770 U/mL (0-769)
== END 2023-05-26 15:08 | disposition home or self-care (01) | DRG 191 ==
LOC: SUATTDRO 08:52 → ERS 08:52 → T4-A 12:10 → OBSVTOIN 05-26 13:32
PROVIDERS: ADMIT Family Medicine; ATTEND Internal Medicine
DX: J44.1 Chronic obstructive pulmonary disease with (acute) exacerbation (principal); I50.32 Chronic diastolic (congestive) heart failure; R65.10 Systemic inflammatory response syndrome (SIRS) of non-infectious origin without acute organ dysfunction; I48.91 Unspecified atrial fibrillation; K70.30 Alcoholic cirrhosis of liver without ascites; Z86.718 Personal history of other venous thrombosis and embolism; Z86.711 Personal history of pulmonary embolism; I48.0 Paroxysmal atrial fibrillation; R33.9 Retention of urine, unspecified; D50.9 Iron deficiency anemia, unspecified; I25.10 Atherosclerotic heart disease of native coronary artery without angina pectoris; I11.0 Hypertensive heart disease with heart failure; Z88.1 Allergy status to other antibiotic agents; Z79.01 Long term (current) use of anticoagulants; Z79.899 Other long term (current) drug therapy; Z11.52 Encounter for screening for COVID-19; F41.9 Anxiety disorder, unspecified
CPT/HCPCS: 36415; 71045; 74177; 76705; 80048; 80053; 80076; 81001; 82728; 83036; 83540; 83550; 83605; 83690; 83735; 83880; 84484; 85025; 85046; 85610; 85730; 86850; 86900; 86901; 87040; 87081; 87086; 87449; 87899; 93005; 94640; 94760; 96365; 96367; 96375; 96376; G0378; J0456; J0692; J1940; J2920; J2930; J3370-JW; J3490; J7611; J7620; Q9967; S0028

== ENCOUNTER 2023-06-05 12:34 | Inpatient (IN) | payer OTHER ==
[2023-06-05] MEDS ORDERED: Furosemide 40 MG (4 mL) VIAL ONE (13:54)
[2023-06-05] MEDS ORDERED: Ipratropium/Albuterol 3 ML NEB ONE (13:54)
[2023-06-05 14:44] LABS: #Basophils 0.1 thou/uL (0.0-0.2); #Eosinphils 0.2 thou/uL (0.0-0.7); #Monocytes 0.3 thou/uL (0.11-0.59); #Neutrophils 9.7 thou/uL (1.40-6.50); %Basophils 0.4 % (0.0-1.0); %Eosinophils 1.6 % (0.0-10.0); %Lymphocytes 9.2 % (21.0-51.0); Hematocrit 34.9 % (42.0-52.0); Hemoglobin 10.9 g/dL (14.0-18.0); Mean Corpuscular HGB CONC 31.2 g/dL (32.0-36.0); Mean Corpuscular Hemoglobin 24.8 pg (27.0-31.0); Mean Corpuscular Volume 79.3 fl (78.0-98.0); Mean Platelet Volume 10.3 fL (7.4-10.4); Platelet Count 248 10x3/uL (130-400); RBC Distribution Width 21.2 % (11.5-14.5); White Blood Cell (WBC) Count 11.5 10x3/uL (4.8-10.8)
[2023-06-05 15:13] LABS: ALT (SGPT) 36 U/L (8-55); AST (SGOT) 23 U/L (5-34); Albumin 3.9 g/dL (3.4-4.8); Alkaline Phosphatase 139 U/L (40-110); Anion Gap 14 mmol/L (10-20); BUN (Urea Nitrogen) 15 mg/dL (8.4-25.7); Bilirubin, Total 0.4 mg/dL (0.2-1.2); Calc. Creatinine Clearance 0 mL/min (70-130); Carbon Dioxide 25 mmol/L (23-31); Chloride 102 mmol/L (98-107); Estimated GFR 102; Glucose 88 mg/dL (80-115); Potassium 3.9 mmol/L (3.5-5.1); Protein, Total 6.9 g/dL (5.8-8.1); Sodium 137 mmol/L (136-145)
[2023-06-05 15:17] LABS: Troponin I Less than 0.010 ng/mL (< 0.028)
[2023-06-05] MEDS ORDERED: Senokot S 8.6-50 MG TAB PO PRN (16:23)
[2023-06-05] MEDS ORDERED: Calcium Carbonate 500 MG ChewTAB PO PRN (16:23)
[2023-06-05] MEDS ORDERED: Ondansetron PF 4 MG/2 ML Vial IVP PRN (16:23)
[2023-06-05] MEDS ORDERED: Ipratropium/Albuterol 3 ML NEB NEB PRN (16:37)
[2023-06-05 17:39] VITALS: BMI 22.3
[2023-06-05] MEDS: Furosemide 40 MG (4 mL) VIAL SLOW IVP SCH (18:05)
[2023-06-05] MEDS: methylPREDNISolone Sod Succ 40 MG VIAL IVP SCH (18:05)
[2023-06-05] MEDS: Albumin 25% 25 GM (100 mL) BOT IVPB SCH (18:18)
[2023-06-05] MEDS: Apixaban 5 MG TAB PO SCH (20:33)
[2023-06-05] MEDS: Doxycycline 100 MG in Sodium Chloride 0.9% 100 ML IVPB SCH (20:34)
[2023-06-05] MEDS ORDERED: Furosemide 40 MG TAB PO SCH (21:00)
[2023-06-06 04:54] LABS: #Neutrophils 5.3 thou/uL (1.40-6.50); %Basophils 0.2 % (0.0-1.0); %Lymphocytes 8.2 % (21.0-51.0); %Monocytes 0.7 % (0.0-10.0); Hematocrit 29.5 % (42.0-52.0); Hemoglobin 9.5 g/dL (14.0-18.0); Mean Corpuscular HGB CONC 32.2 g/dL (32.0-36.0); Mean Corpuscular Hemoglobin 24.8 pg (27.0-31.0); Platelet Count 192 10x3/uL (130-400); RBC Distribution Width 20.5 % (11.5-14.5); Red Blood Cell (RBC) Count 3.83 mill/uL (4.70-6.10); White Blood Cell (WBC) Count 5.8 10x3/uL (4.8-10.8)
[2023-06-06 05:21] LABS: ALT (SGPT) 75 U/L (8-55); AST (SGOT) 104 U/L (5-34); Albumin 4.1 g/dL (3.4-4.8); Alkaline Phosphatase 131 U/L (40-110); Anion Gap 12 mmol/L (10-20); BUN (Urea Nitrogen) 19 mg/dL (8.4-25.7); Bilirubin, Total 0.4 mg/dL (0.2-1.2); Calc. Creatinine Clearance 115 mL/min (70-130); Carbon Dioxide 27 mmol/L (23-31); Chloride 99 mmol/L (98-107); Estimated GFR 104; Globulin 2.5 g/dL (2.4-3.5); Glucose 122 mg/dL (80-115); Magnesium 2.1 mg/dL (1.6-2.6); Potassium 3.9 mmol/L (3.5-5.1); Protein, Total 6.6 g/dL (5.8-8.1); Sodium 134 mmol/L (136-145)
[2023-06-06] MEDS: Furosemide 40 MG (4 mL) VIAL SLOW IVP SCH (05:56)
[2023-06-06] MEDS ORDERED: Enoxaparin 40 MG (0.4 mL) SYRINGE SC SCH (09:00)
[2023-06-06] MEDS: Ferrous Sulfate 325 MG TAB PO SCH (09:13)
[2023-06-06] MEDS: Amlodipine 10 MG TAB PO SCH (09:14)
[2023-06-06] MEDS: Spironolactone 100 MG TAB PO SCH (09:14)
[2023-06-06] MEDS: Nebivolol HCl 5 MG TAB PO SCH (09:14)
[2023-06-06] MEDS: Acetaminophen 325 MG TAB PO PRN (09:22)
[2023-06-06] MEDS: traMADol HCl 50 MG TAB PO SCH (15:16)
[2023-06-06] MEDS: Ipratropium/Albuterol 3 ML NEB NEB SCH (18:35)
[2023-06-06] MEDS: Mometasone 200 MCG/Formoterol 5 MCG 120 PUFF INHALER INH SCH (18:39)
[2023-06-06] MEDS ORDERED: Ipratropium/Albuterol 3 ML NEB NEB SCH (19:00)
[2023-06-06] MEDS: Melatonin 3 MG TAB PO PRN (20:35)
[2023-06-07] MEDS: traMADol HCl 50 MG TAB PO PRN (06:59)
[2023-06-07] MEDS ORDERED: Glucagon 1 MG/ML KIT IM PRN (19:12)
[2023-06-07] MEDS ORDERED: Dextrose 5% in Water 1,000 ML IV PRN (19:12)
[2023-06-07] MEDS ORDERED: Dextrose 50% Abboject 50 ML SYRINGE SLOW IVP PRN (19:12)
[2023-06-07] MEDS ORDERED: HumaLOG 300 UNITS/3 ML VIAL SC PRN (19:12)
[2023-06-08] MEDS: Ipratropium/Albuterol 3 ML NEB ONE ×2 (00:10→23:00)
[2023-06-08 04:01] LABS: #Monocytes 0.9 thou/uL (0.11-0.59); #Neutrophils 16.3 thou/uL (1.40-6.50); %Basophils 0.1 % (0.0-1.0); %Lymphocytes 1.5 % (21.0-51.0); %Neutrophils 92.3 % (42.0-75.0); Hematocrit 30.7 % (42.0-52.0); Hemoglobin 9.8 g/dL (14.0-18.0); Mean Corpuscular HGB CONC 31.9 g/dL (32.0-36.0); Mean Corpuscular Hemoglobin 24.7 pg (27.0-31.0); Mean Corpuscular Volume 77.3 fl (78.0-98.0); Mean Platelet Volume 10.5 fL (7.4-10.4); Platelet Count 235 10x3/uL (130-400); RBC Distribution Width 20.6 % (11.5-14.5); Red Blood Cell (RBC) Count 3.97 mill/uL (4.70-6.10); White Blood Cell (WBC) Count 17.7 10x3/uL (4.8-10.8)
[2023-06-08 04:22] LABS: Anion Gap 15 mmol/L (10-20); BUN (Urea Nitrogen) 27 mg/dL (8.4-25.7); Calc. Creatinine Clearance 106 mL/min (70-130); Calcium 8.6 mg/dL (7.8-10.44); Carbon Dioxide 25 mmol/L (23-31); Chloride 98 mmol/L (98-107); Estimated GFR 101; Glucose 189 mg/dL (80-115); Potassium 3.2 mmol/L (3.5-5.1); Sodium 135 mmol/L (136-145)
[2023-06-08] MEDS: Potassium Chloride 20 MEQ TAB PO SCH (12:03)
[2023-06-08] MEDS: HumaLOG 300 UNITS/3 ML VIAL SC PRN (12:06)
[2023-06-08] MEDS: diphenhydrAMINE 12.5 MG/5 ML UDCUP PO PRN (20:55)
[2023-06-09 05:44] LABS: #Monocytes 0.8 thou/uL (0.11-0.59); #Neutrophils 13.3 thou/uL (1.40-6.50); %Basophils 0.1 % (0.0-1.0); %Lymphocytes 2.4 % (21.0-51.0); %Monocytes 5.1 % (0.0-10.0); %Neutrophils 91.4 % (42.0-75.0); Hematocrit 31.7 % (42.0-52.0); Hemoglobin 10.1 g/dL (14.0-18.0); Mean Corpuscular HGB CONC 31.9 g/dL (32.0-36.0); Mean Corpuscular Hemoglobin 25.3 pg (27.0-31.0); Mean Corpuscular Volume 79.3 fl (78.0-98.0); Mean Platelet Volume 10.8 fL (7.4-10.4); Platelet Count 219 10x3/uL (130-400); RBC Distribution Width 20.9 % (11.5-14.5); White Blood Cell (WBC) Count 14.6 10x3/uL (4.8-10.8)
[2023-06-09 06:37] LABS: Anion Gap 12 mmol/L (10-20); BUN (Urea Nitrogen) 19 mg/dL (8.4-25.7); Calc. Creatinine Clearance 122 mL/min (70-130); Calcium 8.6 mg/dL (7.8-10.44); Carbon Dioxide 28 mmol/L (23-31); Chloride 99 mmol/L (98-107); Estimated GFR 105; Glucose 101 mg/dL (80-115); Magnesium 3.3 mg/dL (1.6-2.6); Potassium 3.7 mmol/L (3.5-5.1); Sodium 135 mmol/L (136-145)
[2023-06-09] MEDS: Furosemide 40 MG TAB PO SCH (08:26)
[2023-06-09] MEDS: Guaifenesin DM 100-10/5 ML UDCUP PO PRN (11:02)
[2023-06-09] MEDS ORDERED: Mometasone 200 MCG HFA INHALER (RT USE) INH SCH (18:30)
[2023-06-09] MEDS: Doxycycline 100 MG CAP PO SCH (20:21)
[2023-06-09] MEDS: Ipratropium/Albuterol 3 ML NEB ONE (23:23)
[2023-06-10 05:42] LABS: #Monocytes 0.8 thou/uL (0.11-0.59); #Neutrophils 13.6 thou/uL (1.40-6.50); %Basophils 0.1 % (0.0-1.0); %Lymphocytes 1.9 % (21.0-51.0); %Monocytes 5.6 % (0.0-10.0); %Neutrophils 91.1 % (42.0-75.0); Hematocrit 31.6 % (42.0-52.0); Hemoglobin 10.1 g/dL (14.0-18.0); Mean Corpuscular Hemoglobin 24.9 pg (27.0-31.0); Mean Platelet Volume 10.1 fL (7.4-10.4); Platelet Count 239 10x3/uL (130-400); RBC Distribution Width 20.9 % (11.5-14.5); Red Blood Cell (RBC) Count 4.05 mill/uL (4.70-6.10); White Blood Cell (WBC) Count 14.9 10x3/uL (4.8-10.8)
[2023-06-10 06:01] LABS: Anion Gap 13 mmol/L (10-20); BUN (Urea Nitrogen) 25 mg/dL (8.4-25.7); Calc. Creatinine Clearance 114 mL/min (70-130); Carbon Dioxide 26 mmol/L (23-31); Chloride 100 mmol/L (98-107); Potassium 4.4 mmol/L (3.5-5.1); Sodium 135 mmol/L (136-145)
[2023-06-10 06:02] LABS: Calcium 8.4 mg/dL (7.8-10.44); Estimated GFR 103; Glucose 117 mg/dL (80-115); Magnesium 3.1 mg/dL (1.6-2.6)
[2023-06-10] MEDS: Spironolactone 100 MG TAB PO SCH (09:04)
[2023-06-10] MEDS: methylPREDNISolone Sod Succ 40 MG VIAL IVP SCH (18:29)
[2023-06-10] MEDS: Ipratropium/Albuterol 3 ML NEB ONE (23:24)
[2023-06-11] MEDS ORDERED: HumaLOG 300 UNITS/3 ML VIAL SC PRN ×2 (13:34)
[2023-06-11] MEDS: diphenhydrAMINE 25 MG CAP PO PRN (21:02)
[2023-06-12] MEDS: Ipratropium/Albuterol 3 ML NEB ONE (06:32)
[2023-06-12] MEDS: Lidocaine 2% Viscous 100 ML BOTTLE SSP SCH (23:01)
[2023-06-13 05:21] LABS: Hematocrit 32.2 % (42.0-52.0); Hemoglobin 10.3 g/dL (14.0-18.0); Manual Diff?? YES; Mean Corpuscular Hemoglobin 24.6 pg (27.0-31.0); Mean Platelet Volume 10.5 fL (7.4-10.4); Platelet Count 249 10x3/uL (130-400); RBC Distribution Width 20.8 % (11.5-14.5); Red Blood Cell (RBC) Count 4.18 mill/uL (4.70-6.10); White Blood Cell (WBC) Count 11.2 10x3/uL (4.8-10.8)
[2023-06-13 05:41] LABS: Anion Gap 14 mmol/L (10-20); BUN (Urea Nitrogen) 25 mg/dL (8.4-25.7); Calc. Creatinine Clearance 120 mL/min (70-130); Calcium 8.5 mg/dL (7.8-10.44); Carbon Dioxide 25 mmol/L (23-31); Chloride 99 mmol/L (98-107); Estimated GFR 105; Glucose 131 mg/dL (80-115); Magnesium 3.1 mg/dL (1.6-2.6); Potassium 4.1 mmol/L (3.5-5.1); Sodium 134 mmol/L (136-145)
[2023-06-13 06:06] LABS: Delete Auto Diff?? YES
[2023-06-13] MEDS: methylPREDNISolone Sod Succ 40 MG VIAL IVP SCH (08:03)
[2023-06-13 08:18] LABS: Band 2 % (5-11); CellaVision Operator ID LAB.KW3; Lymphocytes 3 % (21-51); Monocytes 8 % (0-10); Neutrophil 87 % (42-75); Platelet Adequacy Comment Platelets Normal; Poikilocytosis SLIGHT = 6-15 cells HPF (0-5); Polychromasia SLIGHT = 2-3 cells HPF (0-2); Total Cell Count 99
[2023-06-13] MEDS ORDERED: Iopamidol 370 76% 100 ML VIAL ONE (13:04)
[2023-06-14] MEDS: Ipratropium/Albuterol 3 ML NEB ONE (01:56)
[2023-06-14 07:59] VITALS: TEMP 98.4
[2023-06-14 09:54] VITALS: BP 131/73
== END 2023-06-14 13:32 | disposition home or self-care (01) | DRG 189 ==
LOC: SUATTDRO 12:34 → ERS 12:34 → MSONC 16:05 → INTOOBSV 16:05 → OBSVTOIN 06-06 14:55
PROVIDERS: ADMIT Internal Medicine; ATTEND Family Medicine
PROC: 30233J1 Transfusion of Nonautologous Serum Albumin into Peripheral Vein, Percutaneous Approach (ICD-10-PCS; principal; 2023-06-05)
DX: J96.21 Acute and chronic respiratory failure with hypoxia (principal); J44.1 Chronic obstructive pulmonary disease with (acute) exacerbation; E87.1 Hypo-osmolality and hyponatremia; I50.32 Chronic diastolic (congestive) heart failure; Z86.711 Personal history of pulmonary embolism; Z88.1 Allergy status to other antibiotic agents; Z79.01 Long term (current) use of anticoagulants; Z79.899 Other long term (current) drug therapy; I11.0 Hypertensive heart disease with heart failure; Z98.890 Other specified postprocedural states; F41.9 Anxiety disorder, unspecified; F17.210 Nicotine dependence, cigarettes, uncomplicated; D63.8 Anemia in other chronic diseases classified elsewhere; K70.30 Alcoholic cirrhosis of liver without ascites; R73.9 Hyperglycemia, unspecified; G47.00 Insomnia, unspecified; I48.0 Paroxysmal atrial fibrillation
CPT/HCPCS: 36415; 36416; 71045; 74177; 76705; 80048; 80053; 82274; 83735; 83880; 84484; 85025; 87070; 87205; 93005; 94640; 94664; 96374; 96375; 96376; G0378; J1815; J1940; J2920; J3475; J3490; J7620; P9047; Q0163; Q9967

== ENCOUNTER 2023-09-10 09:00 | Outpatient (CLI) | payer OTHER | END 2023-09-10 09:01 | disposition home or self-care (01) | LOC: BICMAMMO 09:00 | PROVIDERS: ATTEND Nurse Practitioner Family | DX: R92.8 Other abnormal and inconclusive findings on diagnostic imaging of breast (principal) | CPT/HCPCS: 77066; G0279 ==

== ENCOUNTER 2024-02-16 04:38 | Emergency (ER) | payer OTHER ==
[2024-02-16] MEDS ORDERED: Ipratropium/Albuterol 3 ML NEB ONE ×2 (05:29→07:06)
[2024-02-16 05:56] LABS: #Basophils 0.08 10x3/uL (0.0-0.2); %Basophils 0.9 % (0.0-1.0); %Eosinophils 1.4 % (0.0-10.0); %Lymphocytes 16.9 % (21.0-51.0); %Monocytes 7.3 % (0.0-10.0); Hematocrit 39.9 % (42.0-52.0); Hemoglobin 13.3 g/dL (14.0-18.0); Mean Corpuscular HGB CONC 33.3 g/dL (32.0-36.0); Mean Corpuscular Hemoglobin 29.6 pg (27.0-31.0); Mean Corpuscular Volume 88.7 fL (78.0-98.0); Mean Platelet Volume 11.2 fL (7.4-10.4); Platelet Count 261 10x3/uL (130-400); RBC Distribution Width 13.6 % (11.5-14.5)
[2024-02-16] MEDS ORDERED: predniSONE 20 MG TAB ONE (05:57)
[2024-02-16] MEDS ORDERED: LevoFLOXacin 500 MG TAB ONE (05:57)
[2024-02-16] MEDS ORDERED: LevoFLOXacin 250 MG TAB ONE (05:57)
[2024-02-16 06:16] LABS: Troponin I Less than 0.010 ng/mL (< 0.028)
[2024-02-16 06:29] LABS: ALT (SGPT) 26 U/L (8-55); AST (SGOT) 27 U/L (5-34); Albumin 3.9 g/dL (3.4-4.8); Alkaline Phosphatase 228 U/L (40-110); Anion Gap 17 mmol/L (10-20); BUN (Urea Nitrogen) 18 mg/dL (8.4-25.7); Bilirubin, Total 0.5 mg/dL (0.2-1.2); Calc. Creatinine Clearance 0 mL/min (70-130); Calcium 9.2 mg/dL (7.8-10.44); Carbon Dioxide 19 mmol/L (23-31); Chloride 103 mmol/L (98-107); Estimated GFR 98; Globulin 3.9 g/dL (2.4-3.5); Glucose 83 mg/dL (80-115); Potassium 4.7 mmol/L (3.5-5.1); Protein, Total 7.8 g/dL (5.8-8.1); Sodium 134 mmol/L (136-145)
[2024-02-16] MEDS ORDERED: Albuterol 2.5 MG (3 mL) NEB ONE (08:28)
[2024-02-16] MEDS ORDERED: Budesonide 0.5 MG/2 ML NEB ONE (08:28)
[2024-02-16 08:32] LABS: Actual Bicarbonate (HCO3v) 18.8 mEq/L (22-28); Analyzer IN Cardio ER; Base Excess -3.1 mEq/L (-2.0 to +3.0); Calcium, Ionized (venous) 1.06 mmol/L (1.16-1.32); Chloride (VBG) 101 mmol/L (98-106); Hematocrit-VBG 41 % (42.0-52.0); Hemoglobin (Hb) 14.1 g/dL (13.1-17.2); Potassium (VBG) 3.34 mmol/L (3.70-5.30); Sodium 135 mmol/L (133-146); pH (venous) 7.477 (7.32-7.43)
== END 2024-02-16 11:20 | disposition home or self-care (01) ==
LOC: ERS 04:38
DX: J44.1 Chronic obstructive pulmonary disease with (acute) exacerbation (principal); I11.0 Hypertensive heart disease with heart failure; I50.9 Heart failure, unspecified; I25.10 Atherosclerotic heart disease of native coronary artery without angina pectoris; F17.210 Nicotine dependence, cigarettes, uncomplicated; Z86.711 Personal history of pulmonary embolism; Z86.718 Personal history of other venous thrombosis and embolism; Z79.01 Long term (current) use of anticoagulants; Z79.899 Other long term (current) drug therapy
CPT/HCPCS: 36415; 71045; 80053; 82805; 83880; 84484; 85025; 93005; 94640; J7512; J7611; J7620; J7626

== ENCOUNTER 2024-02-18 22:05 | Inpatient (IN) | payer OTHER ==
[2024-02-18] MEDS ORDERED: Dexamethasone 10 MG/ML VIAL ONE (22:19)
[2024-02-18] MEDS ORDERED: Magnesium 2 GM/50 ML BAG (IN WATER) ONE (22:19)
[2024-02-18 22:27] LABS: #Basophils 0.03 10x3/uL (0.0-0.2); #Eosinophils Less than 0.03 10x3/uL (0.0-0.7); %Basophils 0.2 % (0.0-1.0); %Lymphocytes 9.2 % (21.0-51.0); %Monocytes 7.7 % (0.0-10.0); %Neutrophils 82.4 % (42.0-75.0); Hematocrit 36.9 % (42.0-52.0); Hemoglobin 12.9 g/dL (14.0-18.0); Mean Corpuscular Hemoglobin 29.7 pg (27.0-31.0); Mean Platelet Volume 10.8 fL (7.4-10.4); Platelet Count 259 10x3/uL (130-400); RBC Distribution Width 13.7 % (11.5-14.5); Red Blood Cell (RBC) Count 4.34 mill/uL (4.70-6.10)
[2024-02-18] MEDS ORDERED: Ipratropium/Albuterol 3 ML NEB ONE (22:30)
[2024-02-18 22:43] LABS: ALT (SGPT) 28 U/L (8-55); AST (SGOT) 31 U/L (5-34); Albumin 3.8 g/dL (3.4-4.8); Alkaline Phosphatase 196 U/L (40-110); Anion Gap 18 mmol/L (10-20); BUN (Urea Nitrogen) 19 mg/dL (8.4-25.7); Bilirubin, Total 0.3 mg/dL (0.2-1.2); Calc. Creatinine Clearance 0 mL/min (70-130); Carbon Dioxide 19 mmol/L (23-31); Chloride 102 mmol/L (98-107); Estimated GFR 92; Globulin 4.2 g/dL (2.4-3.5); Glucose 109 mg/dL (80-115); Magnesium 2.3 mg/dL (1.6-2.6); Potassium 3.5 mmol/L (3.5-5.1); Sodium 135 mmol/L (136-145)
[2024-02-18 22:46] LABS: Troponin I Less than 0.010 ng/mL (< 0.028)
[2024-02-18] MEDS ORDERED: LevoFLOXacin 750 mg/D5W 150 ml Premix Bag ONE (22:53)
[2024-02-19] MEDS ORDERED: Ondansetron ODT 4 MG TAB PO PRN (00:57)
[2024-02-19] MEDS ORDERED: Ondansetron PF 4 MG/2 ML Vial IVP PRN (00:57)
[2024-02-19] MEDS ORDERED: Acetaminophen 650 MG Suppository PR PRN (00:57)
[2024-02-19] MEDS ORDERED: Albuterol 200 PUFF (6.7GM INHALER) INH PRN (01:01)
[2024-02-19 01:23] LABS: Lactic Acid 0.95 mmol/L (0.5-2.2)
[2024-02-19] MEDS: Ipratropium/Albuterol 3 ML NEB NEB SCH (02:25)
[2024-02-19] MEDS ORDERED: Acetaminophen 325 MG TAB ONE (02:59)
[2024-02-19] MEDS: Acetaminophen 325 MG TAB PO SCH (03:01)
[2024-02-19 04:23] LABS: #Basophils Less than 0.03 10x3/uL (0.0-0.2); #Eosinophils Less than 0.03 10x3/uL (0.0-0.7); %Basophils 0.1 % (0.0-1.0); %Lymphocytes 4.2 % (21.0-51.0); %Monocytes 3.4 % (0.0-10.0); %Neutrophils 91.8 % (42.0-75.0); Hematocrit 33.7 % (42.0-52.0); Hemoglobin 11.6 g/dL (14.0-18.0); Mean Corpuscular HGB CONC 34.4 g/dL (32.0-36.0); Mean Corpuscular Hemoglobin 29.7 pg (27.0-31.0); Mean Corpuscular Volume 86.4 fL (78.0-98.0); Mean Platelet Volume 11.1 fL (7.4-10.4); Platelet Count 211 10x3/uL (130-400)
[2024-02-19 04:39] LABS: Anion Gap 12 mmol/L (10-20); BUN (Urea Nitrogen) 16 mg/dL (8.4-25.7); Calc. Creatinine Clearance 96 mL/min (70-130); Calcium 8.5 mg/dL (7.8-10.44); Carbon Dioxide 20 mmol/L (23-31); Chloride 105 mmol/L (98-107); Estimated GFR 100; Glucose 125 mg/dL (80-115); Potassium 3.8 mmol/L (3.5-5.1); Sodium 133 mmol/L (136-145)
[2024-02-19 04:43] LABS: Troponin I 0.011 ng/mL (< 0.028)
[2024-02-19 04:55] VITALS: BMI 19.8
[2024-02-19] MEDS ORDERED: predniSONE 20 MG TAB PO SCH (08:00)
[2024-02-19 08:49] LABS: Troponin I Less than 0.010 ng/mL (< 0.028)
[2024-02-19] MEDS: Furosemide 40 MG TAB PO SCH (08:56)
[2024-02-19] MEDS: Spironolactone 100 MG TAB PO SCH (08:57)
[2024-02-19] MEDS: Amlodipine 10 MG TAB PO SCH (08:57)
[2024-02-19] MEDS: Apixaban 5 MG TAB PO SCH (08:58)
[2024-02-19] MEDS: Famotidine/PF 20 mg/2ml Vial SLOW IVP SCH (08:58)
[2024-02-19] MEDS: Metoprolol Tartrate 25 MG TAB PO SCH (08:59)
[2024-02-19] MEDS ORDERED: Nebivolol HCl 5 MG TAB PO SCH (09:00)
[2024-02-19] MEDS: Famotidine 20 MG TAB PO SCH (09:02)
[2024-02-19] MEDS: Arformoterol 15 MCG/2 ML NEB NEB SCH ×2 (10:49→20:01)
[2024-02-19] MEDS: Budesonide 0.5 MG/2 ML NEB INH SCH (10:50)
[2024-02-19] MEDS: methylPREDNISolone Sod Succ 40 MG VIAL IVP SCH ×2 (13:04→15:01)
[2024-02-19] MEDS: Budesonide 0.25 MG/2 ML NEB INH SCH (20:01)
[2024-02-19] MEDS: LevoFLOXacin 750 mg/D5W 750 MG in Premix 1 BAG IVPB SCH (21:59)
[2024-02-20] MEDS: Ipratropium/Albuterol 3 ML NEB NEB SCH (02:13)
[2024-02-20] MEDS: Guaifenesin DM 100-10/5 ML UDCUP PO PRN (17:12)
[2024-02-20] MEDS: Melatonin 3 MG TAB PO SCH ×2 (20:17→22:34)
[2024-02-21 08:17] VITALS: BP 117/62; TEMP 97.7
[2024-02-21] MEDS: predniSONE 20 MG TAB PO SCH (08:18)
== END 2024-02-21 12:03 | disposition home or self-care (01) | DRG 189 ==
LOC: ERS 22:05 → ERHOLD 02-19 01:11 → PCU 02-19 04:17
PROVIDERS: ADMIT Student in an Organized Health Care Education/Training Program; ATTEND Internal Medicine
DX: J96.21 Acute and chronic respiratory failure with hypoxia (principal); J44.1 Chronic obstructive pulmonary disease with (acute) exacerbation; I50.32 Chronic diastolic (congestive) heart failure; I48.91 Unspecified atrial fibrillation; Z88.8 Allergy status to other drugs, medicaments and biological substances; Z88.1 Allergy status to other antibiotic agents; I11.0 Hypertensive heart disease with heart failure; Z87.891 Personal history of nicotine dependence; Z79.01 Long term (current) use of anticoagulants; Z79.899 Other long term (current) drug therapy
CPT/HCPCS: 36415; 71045; 71250; 80048; 80053; 82805; 83605; 83735; 83880; 84484; 85025; 85379; 87040; 93005; 94640; 94660; 94760; 96365; 96366; 96367; 96375; J1100; J1956; J2919; J3475; J3490; J7512; J7611; J7620; J7626

== ENCOUNTER 2024-02-22 01:44 | Inpatient (IN) | payer OTHER ==
[2024-02-22] MEDS ORDERED: methylPREDNISolone Sod Succ/PF 125 MG/2 ML VIAL ONE (02:26)
[2024-02-22] MEDS ORDERED: LevoFLOXacin 750 mg/D5W 150 ml Premix Bag ONE (02:26)
[2024-02-22] MEDS ORDERED: Ipratropium/Albuterol 3 ML NEB ONE (02:39)
[2024-02-22 02:44] LABS: #Basophils 0.03 10x3/uL (0.0-0.2); #Eosinophils Less than 0.03 10x3/uL (0.0-0.7); %Basophils 0.2 % (0.0-1.0); %Lymphocytes 10.2 % (21.0-51.0); %Monocytes 7.6 % (0.0-10.0); %Neutrophils 79.8 % (42.0-75.0); Hematocrit 39.6 % (42.0-52.0); Hemoglobin 13.4 g/dL (14.0-18.0); Mean Corpuscular HGB CONC 33.8 g/dL (32.0-36.0); Mean Corpuscular Hemoglobin 29.8 pg (27.0-31.0); Mean Platelet Volume 11.2 fL (7.4-10.4); Platelet Count 297 10x3/uL (130-400); RBC Distribution Width 13.8 % (11.5-14.5)
[2024-02-22 03:02] LABS: ALT (SGPT) 34 U/L (8-55); AST (SGOT) 32 U/L (5-34); Albumin 3.4 g/dL (3.4-4.8); Alkaline Phosphatase 139 U/L (40-110); Anion Gap 15 mmol/L (10-20); BUN (Urea Nitrogen) 23 mg/dL (8.4-25.7); Bilirubin, Total 0.2 mg/dL (0.2-1.2); Calc. Creatinine Clearance 0 mL/min (70-130); Calcium 8.7 mg/dL (7.8-10.44); Carbon Dioxide 24 mmol/L (23-31); Chloride 103 mmol/L (98-107); Estimated GFR 102; Glucose 110 mg/dL (80-115); Lipase 48 U/L (8-78); Magnesium 2.8 mg/dL (1.6-2.6); Potassium 4.4 mmol/L (3.5-5.1); Protein, Total 7.4 g/dL (5.8-8.1); Sodium 138 mmol/L (136-145)
[2024-02-22 03:05] LABS: Troponin I Less than 0.010 ng/mL (< 0.028)
[2024-02-22 03:16] LABS: INR-International Normal Ratio 1.2; Prothrombin Time 15.5 sec (12.0-14.7)
[2024-02-22 03:17] LABS: PTT 27.3 sec (22.9-36.1)
[2024-02-22 06:07] LABS: Lactic Acid 1.99 mmol/L (0.5-2.2)
[2024-02-22] MEDS ORDERED: Ipratropium/Albuterol 3 ML NEB NEB PRN (07:58)
[2024-02-22] MEDS ORDERED: Ondansetron ODT 4 MG TAB PO PRN (08:00)
[2024-02-22] MEDS ORDERED: Senokot S 8.6-50 MG TAB PO PRN (08:00)
[2024-02-22] MEDS ORDERED: Ondansetron PF 4 MG/2 ML Vial IVP PRN (08:00)
[2024-02-22 09:44] VITALS: BMI 22.0
[2024-02-22] MEDS ORDERED: Iopamidol 370 76% 100 ML VIAL ONE (10:23)
[2024-02-22] MEDS ORDERED: Vancomycin (BATCH) 2 GM in Premix 1 BAG IVPB SCH (10:30)
[2024-02-22] MEDS: predniSONE 20 MG TAB PO SCH (10:32)
[2024-02-22] MEDS: Spironolactone 25 MG TAB PO SCH (10:32)
[2024-02-22] MEDS: Furosemide 20 MG TAB PO SCH (10:33)
[2024-02-22] MEDS: Ipratropium/Albuterol 3 ML NEB NEB SCH (11:13)
[2024-02-22] MEDS: Aztreonam 2 GM in Sodium Chloride 0.9% 100 ML IVPB SCH (11:38)
[2024-02-22] MEDS: Metoprolol Tartrate 25 MG TAB PO SCH ×2 (11:39→19:48)
[2024-02-22] MEDS: Amlodipine 10 MG TAB PO SCH (11:39)
[2024-02-22] MEDS: Apixaban 5 MG TAB PO SCH ×2 (13:23→22:48)
[2024-02-22] MEDS: Vancomycin (BATCH) 2 GM in Premix 1 BAG IVPB SCH (14:10)
[2024-02-22 14:18] LABS: Legionella Urinary Ag Negative (Negative); Strep pneumo Urine Ag NEGATIVE (NEGATIVE)
[2024-02-23] MEDS: Vancomycin (BATCH) 1.5 GM in Premix 1 BAG IVPB SCH (00:22)
[2024-02-23 05:35] LABS: Hematocrit 35.3 % (42.0-52.0); Mean Corpuscular Hemoglobin 29.9 pg (27.0-31.0); Mean Corpuscular Volume 87.8 fL (78.0-98.0); Mean Platelet Volume 10.9 fL (7.4-10.4); Platelet Count 286 10x3/uL (130-400); RBC Distribution Width 13.8 % (11.5-14.5); Red Blood Cell (RBC) Count 4.02 mill/uL (4.70-6.10)
[2024-02-23 05:55] LABS: Anion Gap 12 mmol/L (10-20); Calc. Creatinine Clearance 105 mL/min (70-130); Carbon Dioxide 23 mmol/L (23-31); Chloride 107 mmol/L (98-107); Estimated GFR 101; Glucose 112 mg/dL (80-115); Potassium 4.6 mmol/L (3.5-5.1); Sodium 137 mmol/L (136-145)
[2024-02-23 06:16] LABS: BUN (Urea Nitrogen) 22 mg/dL (8.4-25.7); Vancomycin, Random 33.7 ug/mL (See Comment)
[2024-02-23 06:31] LABS: Lymphocytes 5 % (21-51); Monocytes 5 % (0-10); Myelocyte 1 % (0-0); Neutrophil 88 % (42-75); Platelet Adequacy Comment Platelets Normal; RBC Morphology Within Normal Limits; Reactive Lymphocytes 1 % (0-10)
[2024-02-23] MEDS: guaiFENesin ER 600 MG TAB PO SCH (09:48)
[2024-02-23] MEDS: Spironolactone 100 MG TAB PO SCH (09:48)
[2024-02-23] MEDS: Amlodipine 10 MG TAB PO SCH (09:49)
[2024-02-23] MEDS: Furosemide 40 MG TAB PO SCH (09:59)
[2024-02-23] MEDS: methylPREDNISolone Sod Succ 40 MG VIAL IVP SCH (10:00)
[2024-02-23] MEDS: Vancomycin 1 GM in Premix 1 BAG IVPB SCH (15:46)
[2024-02-23 17:05] VITALS: BMI 22.0
[2024-02-24] MEDS: traZODone HCl 50 MG TAB PO PRN ×2 (00:43→20:09)
[2024-02-24 05:16] LABS: Anion Gap 13 mmol/L (10-20); BUN (Urea Nitrogen) 22 mg/dL (8.4-25.7); Calc. Creatinine Clearance 109 mL/min (70-130); Calcium 8.1 mg/dL (7.8-10.44); Carbon Dioxide 21 mmol/L (23-31); Chloride 102 mmol/L (98-107); Estimated GFR 102; Glucose 141 mg/dL (80-115); Potassium 4.7 mmol/L (3.5-5.1); Sodium 131 mmol/L (136-145)
[2024-02-24 05:18] LABS: Hematocrit 38.1 % (42.0-52.0); Hemoglobin 12.7 g/dL (14.0-18.0); Mean Corpuscular HGB CONC 33.3 g/dL (32.0-36.0); Mean Corpuscular Hemoglobin 29.5 pg (27.0-31.0); Mean Corpuscular Volume 88.6 fL (78.0-98.0); Mean Platelet Volume 10.9 fL (7.4-10.4); Platelet Count 263 10x3/uL (130-400); RBC Distribution Width 13.5 % (11.5-14.5)
[2024-02-24 06:34] LABS: Band 1 % (5-11); Lymphocytes 6 % (21-51); Macrocytosis SLIGHT = 6-15 cells HPF (0-5); Monocytes 1 % (0-10); Neutrophil 92 % (42-75); Platelet Adequacy Comment Platelets Normal; Polychromasia SLIGHT = 2-3 cells HPF (0-2); Smudge Cells 5.1 %
[2024-02-24] MEDS: Acetaminophen 325 MG TAB PO PRN (23:56)
[2024-02-25 04:31] LABS: Hematocrit 37.9 % (42.0-52.0); Hemoglobin 12.9 g/dL (14.0-18.0); Mean Corpuscular Volume 88.1 fL (78.0-98.0); Mean Platelet Volume 10.7 fL (7.4-10.4); Platelet Count 309 10x3/uL (130-400); RBC Distribution Width 13.7 % (11.5-14.5)
[2024-02-25 04:50] LABS: Anion Gap 12 mmol/L (10-20); BUN (Urea Nitrogen) 22 mg/dL (8.4-25.7); Calc. Creatinine Clearance 108 mL/min (70-130); Calcium 8.2 mg/dL (7.8-10.44); Carbon Dioxide 25 mmol/L (23-31); Chloride 100 mmol/L (98-107); Estimated GFR 102; Glucose 106 mg/dL (80-115); Potassium 4.2 mmol/L (3.5-5.1); Sodium 133 mmol/L (136-145)
[2024-02-25 05:25] LABS: Band 6 % (5-11); Large Platelets 2.9 % (0-5); Lymphocytes 10 % (21-51); Macrocytosis SLIGHT = 6-15 cells HPF (0-5); Metamyelocyte 3 % (0-0); Monocytes 7 % (0-10); Myelocyte 1 % (0-0); Neutrophil 74 % (42-75); Platelet Adequacy Comment Platelets Normal; Polychromasia SLIGHT = 2-3 cells HPF (0-2)
[2024-02-25] MEDS: Doxycycline 100 MG CAP PO SCH (09:03)
[2024-02-25] MEDS: methylPREDNISolone Sod Succ 40 MG VIAL IVP SCH (20:57)
[2024-02-26 04:40] LABS: Hematocrit 38.8 % (42.0-52.0); Hemoglobin 13.2 g/dL (14.0-18.0); Mean Corpuscular Hemoglobin 29.3 pg (27.0-31.0); Mean Corpuscular Volume 86.2 fL (78.0-98.0); Mean Platelet Volume 10.4 fL (7.4-10.4); Platelet Count 263 10x3/uL (130-400); RBC Distribution Width 13.3 % (11.5-14.5)
[2024-02-26 04:43] LABS: Anion Gap 13 mmol/L (10-20); BUN (Urea Nitrogen) 25 mg/dL (8.4-25.7); Calc. Creatinine Clearance 116 mL/min (70-130); Calcium 8.5 mg/dL (7.8-10.44); Carbon Dioxide 22 mmol/L (23-31); Chloride 101 mmol/L (98-107); Estimated GFR 104; Glucose 143 mg/dL (80-115); Potassium 4.7 mmol/L (3.5-5.1); Sodium 131 mmol/L (136-145)
[2024-02-26 06:37] LABS: Anisocytosis SLIGHT = 6-15 cells HPF (0-5); Lymphocytes 7 % (21-51); Macrocytosis SLIGHT = 6-15 cells HPF (0-5); Metamyelocyte 1 % (0-0); Monocytes 3 % (0-10); Neutrophil 86 % (42-75); Platelet Adequacy Comment Platelets Normal; Reactive Lymphocytes 3 % (0-10)
[2024-02-26] MEDS: Spironolactone 100 MG TAB PO SCH (08:59)
[2024-02-27 05:36] LABS: Hematocrit 37.4 % (42.0-52.0); Hemoglobin 12.5 g/dL (14.0-18.0); Mean Corpuscular HGB CONC 33.4 g/dL (32.0-36.0); Mean Corpuscular Hemoglobin 29.4 pg (27.0-31.0); Mean Platelet Volume 10.5 fL (7.4-10.4); Platelet Count 267 10x3/uL (130-400); RBC Distribution Width 13.5 % (11.5-14.5); Red Blood Cell (RBC) Count 4.25 mill/uL (4.70-6.10)
[2024-02-27 05:51] LABS: Anion Gap 13 mmol/L (10-20); BUN (Urea Nitrogen) 26 mg/dL (8.4-25.7); Calc. Creatinine Clearance 112 mL/min (70-130); Calcium 8.1 mg/dL (7.8-10.44); Carbon Dioxide 22 mmol/L (23-31); Chloride 101 mmol/L (98-107); Estimated GFR 103; Glucose 116 mg/dL (80-115); Potassium 4.8 mmol/L (3.5-5.1); Sodium 131 mmol/L (136-145)
[2024-02-27 05:57] LABS: Band 1 % (5-11); Lymphocytes 5 % (21-51); Monocytes 5 % (0-10); Myelocyte 3 % (0-0); Neutrophil 86 % (42-75); Platelet Adequacy Comment Platelets Normal
[2024-02-27 07:41] VITALS: BP 129/72; TEMP 97.8
== END 2024-02-27 11:44 | disposition home or self-care (01) | DRG 871 ==
LOC: ERS 01:44 → OBSVTOIN 09:09 → 2NO 09:09 → T4-B 02-26 17:27
PROVIDERS: ADMIT Internal Medicine; ATTEND Family Medicine
DX: A41.9 Sepsis, unspecified organism (principal); J12.9 Viral pneumonia, unspecified; J96.21 Acute and chronic respiratory failure with hypoxia; I50.32 Chronic diastolic (congestive) heart failure; J44.1 Chronic obstructive pulmonary disease with (acute) exacerbation; I11.0 Hypertensive heart disease with heart failure; I48.0 Paroxysmal atrial fibrillation; K70.30 Alcoholic cirrhosis of liver without ascites; Z79.82 Long term (current) use of aspirin; Z79.899 Other long term (current) drug therapy; Z88.1 Allergy status to other antibiotic agents; Z79.01 Long term (current) use of anticoagulants; Z98.890 Other specified postprocedural states
CPT/HCPCS: 36415; 71045; 71275; 80048; 80053; 80202; 83605; 83690; 83735; 83880; 84145; 84484; 85025; 85610; 85730; 87040; 87070; 87081; 87205; 87428; 87449; 87633; 87798; 87899; 93005; 94640; 94760; 96365; 96375; 97139; J0457; J1956; J2919; J3370; J3370-JW; J7512; J7620; Q9967

== ENCOUNTER 2024-03-22 14:38 | Outpatient (CLI) | payer OTHER | END 2024-03-22 14:39 | disposition home or self-care (01) | LOC: RAD 14:38 | PROVIDERS: ATTEND Internal Medicine Critical Care Medicine | DX: R06.00 Dyspnea, unspecified (principal) | CPT/HCPCS: 71046 ==

== ENCOUNTER 2024-12-26 14:39 | Emergency (ER) | payer OTHER ==
[2024-12-26 15:29] LABS: #Basophils Less than 0.03 10x3/uL (0.0-0.2); #Eosinophils Less than 0.03 10x3/uL (0.0-0.7); #Monocytes 0.08 10x3/uL (0.11-0.59); #Neutrophils 6.91 10x3/uL (1.40-6.50); %Basophils 0.3 % (0.0-1.0); %Eosinophils 0.0 % (0.0-10.0); %Lymphocytes 8.6 % (21.0-51.0); %Monocytes 1.0 % (0.0-10.0); %Neutrophils 89.6 % (42.0-75.0); Hematocrit 42.6 % (42.0-52.0); Hemoglobin 14.4 g/dL (14.0-18.0); Mean Corpuscular Hemoglobin 30.6 pg (27.0-31.0); Mean Corpuscular Volume 90.6 fL (78.0-98.0); Platelet Count 228 10x3/uL (130-400); Red Blood Cell (RBC) Count 4.70 mill/uL (4.70-6.10); White Blood Cell (WBC) Count 7.71 10x3/uL (4.8-10.8)
[2024-12-26 15:42] LABS: ALT (SGPT) 19 U/L (Less than 45); AST (SGOT) 23 U/L (11-34); Albumin 4.0 g/dL (3.1-4.5); Alkaline Phosphatase 170 U/L (40-110); Anion Gap 13 mmol/L (10-20); BUN (Urea Nitrogen) 10 mg/dL (8.4-25.7); Bilirubin, Total 0.8 mg/dL (0.3-1.2); Calc. Creatinine Clearance 0 mL/min (70-130); Calcium 9.2 mg/dL (7.8-10.44); Carbon Dioxide 22 mmol/L (23-31); Chloride 99 mmol/L (98-107); Globulin 2.8 g/dL (2.4-3.5); Glucose 129 mg/dL (80-115); Lipase 19 U/L (8-78); Magnesium 2.6 mg/dL (1.6-2.6); Potassium 3.7 mmol/L (3.5-5.1); Sodium 130 mmol/L (136-145)
[2024-12-26] MEDS ORDERED: Albuterol 2.5 MG (0.5 mL) NEB ONE (17:03)
== END 2024-12-26 17:18 | disposition home or self-care (01) ==
LOC: ERS 14:39
DX: J44.1 Chronic obstructive pulmonary disease with (acute) exacerbation (principal); R10.84 Generalized abdominal pain; I25.10 Atherosclerotic heart disease of native coronary artery without angina pectoris; I11.0 Hypertensive heart disease with heart failure; I50.9 Heart failure, unspecified; I48.91 Unspecified atrial fibrillation; F17.210 Nicotine dependence, cigarettes, uncomplicated; Z79.01 Long term (current) use of anticoagulants; Z79.899 Other long term (current) drug therapy
CPT/HCPCS: 71045; 74177; 76705; 80053; 83605; 83690; 83735; 83880; 84484; 85025; 87040; 93005; 94760; 96374; J7611; Q9967

== ENCOUNTER 2025-03-12 03:39 | Emergency (ER) | payer OTHER ==
[2025-03-12] MEDS ORDERED: Magnesium 2 GM/50 ML BAG (IN WATER) ONE (04:01)
[2025-03-12] MEDS ORDERED: Dexamethasone 10 MG/ML VIAL ONE (04:01)
[2025-03-12] MEDS ORDERED: Albuterol 2.5 MG (0.5 mL) NEB ONE ×2 (04:09→05:31)
[2025-03-12 04:28] LABS: #Basophils 0.03 10x3/uL (0.0-0.2); #Eosinophils Less than 0.03 10x3/uL (0.0-0.7); #Monocytes 0.08 10x3/uL (0.11-0.59); #Neutrophils 7.34 10x3/uL (1.40-6.50); %Basophils 0.4 % (0.0-1.0); %Eosinophils 0.0 % (0.0-10.0); %Lymphocytes 5.7 % (21.0-51.0); %Monocytes 1.0 % (0.0-10.0); %Neutrophils 92.5 % (42.0-75.0); Hematocrit 44.9 % (42.0-52.0); Hemoglobin 14.9 g/dL (14.0-18.0); Mean Corpuscular Hemoglobin 31.4 pg (27.0-31.0); Mean Corpuscular Volume 94.7 fL (78.0-98.0); Platelet Count 336 10x3/uL (130-400); Red Blood Cell (RBC) Count 4.74 mill/uL (4.70-6.10); White Blood Cell (WBC) Count 7.93 10x3/uL (4.8-10.8)
[2025-03-12 04:51] LABS: ALT (SGPT) 18 U/L (Less than 45); AST (SGOT) 30 U/L (11-34); Albumin 4.1 g/dL (3.1-4.5); Alkaline Phosphatase 154 U/L (40-110); Anion Gap 18 mmol/L (10-20); BUN (Urea Nitrogen) 13 mg/dL (8.4-25.7); Bilirubin, Total 0.5 mg/dL (0.3-1.2); Calc. Creatinine Clearance 0 mL/min (70-130); Calcium 9.4 mg/dL (7.8-10.44); Carbon Dioxide 27 mmol/L (23-31); Chloride 101 mmol/L (98-107); Globulin 2.7 g/dL (2.4-3.5); Glucose 164 mg/dL (80-115); Potassium 4.0 mmol/L (3.5-5.1); Sodium 142 mmol/L (136-145)
== END 2025-03-12 07:08 | disposition home or self-care (01) ==
LOC: ERS 03:39
DX: J44.1 Chronic obstructive pulmonary disease with (acute) exacerbation (principal); I25.10 Atherosclerotic heart disease of native coronary artery without angina pectoris; I11.0 Hypertensive heart disease with heart failure; I50.9 Heart failure, unspecified; I48.91 Unspecified atrial fibrillation; F17.210 Nicotine dependence, cigarettes, uncomplicated; Z79.01 Long term (current) use of anticoagulants; Z79.899 Other long term (current) drug therapy
CPT/HCPCS: 71045; 80053; 83880; 84484; 85025; 93005; 96365; 96366; 96375; J1100; J3475; J7611

== ENCOUNTER 2025-03-25 16:31 | Emergency (ER) | payer OTHER ==
[2025-03-25] MEDS ORDERED: Magnesium 2 GM/50 ML BAG (IN WATER) ONE (17:06)
[2025-03-25 17:24] LABS: #Basophils 0.11 10x3/uL (0.0-0.2); #Eosinophils 0.17 10x3/uL (0.0-0.7); #Monocytes 0.51 10x3/uL (0.11-0.59); #Neutrophils 7.23 10x3/uL (1.40-6.50); %Basophils 1.1 % (0.0-1.0); %Eosinophils 1.7 % (0.0-10.0); %Lymphocytes 18.3 % (21.0-51.0); %Monocytes 5.1 % (0.0-10.0); %Neutrophils 72.3 % (42.0-75.0); Hematocrit 42.9 % (42.0-52.0); Hemoglobin 14.5 g/dL (14.0-18.0); Mean Corpuscular Hemoglobin 31.3 pg (27.0-31.0); Mean Corpuscular Volume 92.7 fL (78.0-98.0); Platelet Count 201 10x3/uL (130-400); Red Blood Cell (RBC) Count 4.63 mill/uL (4.70-6.10); White Blood Cell (WBC) Count 10.00 10x3/uL (4.8-10.8)
[2025-03-25] MEDS ORDERED: Azithromycin 500 MG VIAL ONE (17:31)
[2025-03-25 17:45] LABS: ALT (SGPT) 27 U/L (Less than 45); AST (SGOT) 24 U/L (11-34); Albumin 4.1 g/dL (3.1-4.5); Alkaline Phosphatase 123 U/L (40-110); Anion Gap 15 mmol/L (10-20); BUN (Urea Nitrogen) 12 mg/dL (8.4-25.7); Bilirubin, Total 0.4 mg/dL (0.3-1.2); Calc. Creatinine Clearance 0 mL/min (70-130); Calcium 9.0 mg/dL (7.8-10.44); Carbon Dioxide 26 mmol/L (23-31); Chloride 97 mmol/L (98-107); Globulin 2.5 g/dL (2.4-3.5); Glucose 89 mg/dL (80-115); Lipase 39 U/L (8-78); Potassium 3.2 mmol/L (3.5-5.1); Sodium 135 mmol/L (136-145)
== END 2025-03-25 20:51 | disposition home or self-care (01) ==
LOC: ERS 16:31
DX: J44.1 Chronic obstructive pulmonary disease with (acute) exacerbation (principal); I25.10 Atherosclerotic heart disease of native coronary artery without angina pectoris; I11.0 Hypertensive heart disease with heart failure; I50.9 Heart failure, unspecified; I82.402 Acute embolism and thrombosis of unspecified deep veins of left lower extremity; K74.60 Unspecified cirrhosis of liver; I48.91 Unspecified atrial fibrillation; F17.210 Nicotine dependence, cigarettes, uncomplicated; Z79.01 Long term (current) use of anticoagulants; Z79.899 Other long term (current) drug therapy
CPT/HCPCS: 71045; 80053; 83690; 83880; 84484; 85025; 87428; 93005; 94640; 96365; 96375; J0456; J2919; J3475